=== PATIENT | female | born 1975 | race Two or more races ===

== ENCOUNTER → 2020-02-05 11:50 | Outpatient (BNVA) | payer OTHER, SELFPAY | PROVIDERS: PCP Internal Medicine; Referring Provider Internal Medicine; Visit Provider Internal Medicine Gastroenterology | DX: Z76.89 Persons encountering health services in other specified circumstances (principal) ==

== ENCOUNTER 2020-05-13 12:38 | Inpatient (IN) | payer OTHER, SELFPAY ==
--- NOTE | ~2020-05-13 | CT_ITS ---
EXAMINATION: CT ABDOMEN AND PELVIS WITH CONTRAST CLINICAL INFORMATION: abdominal pain COMPARISON: 08/25/2019 TECHNIQUE: Multidetector volumetric imaging was performed from the superior aspect of the liver through the pubic symphysis following administration of 85 cc of Omnipaque intravenous contrast Sagittal and coronal reformatted images were obtained on the technologist workstation.. This CT examination was performed using dose optimization techniques as appropriate, variously including the following: *Automated exposure control *Adjustment of mA and/or kV according to patient size (this includes techniques or standardized protocols for targeted exams where dose is matched to indication/reason for exam; i.e. extremities or head) *Use of iterative reconstruction technique DLP: 772 mGy-cm FINDINGS: LUNG BASES: Interval dependent atelectasis. LIVER, GALLBLADDER, AND BILIARY TREE: Diffuse fatty infiltration of the liver but no focal hepatic lesion or biliary ductal dilatation. Gallbladder surgically absent. PANCREAS: Pancreas is boggy with diffuse peripancreatic inflammatory changes or fluid. There is homogeneous enhancement to the pancreatic parenchyma. No pancreatic ductal dilatation. Overall the appearance is most consistent with acute interstitial pancreatitis similar to the 08/25/2019 study. SPLEEN: Spleen measures 13.7 cm in length. ADRENAL GLANDS: Unremarkable. KIDNEYS AND URETERS: The kidneys are normal in size, shape, and attenuation. No hydronephrosis, hydroureter, or calculi seen. No perinephric stranding. BLADDER: Unremarkable. GASTROINTESTINAL TRACT: The small and large bowel are unremarkable. The appendix is unremarkable. ABDOMINAL WALL: No significant hernia is appreciated. LYMPHOVASCULAR STRUCTURES: No lymphadenopathy. The aorta is unremarkable. PELVIC VISCERA: Unremarkable. OSSEOUS STRUCTURES: Unremarkable. CT/CT abdomen pelvis w con IMPRESSION: Fullness to the pancreas with peripancreatic inflammatory changes and fluid. Overall the appearance is most consistent with underlying acute interstitial pancreatitis. Clinical correlation recommended. Appearance is similar to the 08/25/2019 study.
--- NOTE | ~2020-05-13 | XR_ITS ---
EXAMINATION: XR CHEST CLINICAL INFORMATION: Shortness of breath COMPARISON: May 16, 2020 and August 25, 2019 TECHNIQUE: AP portable view of the chest was obtained. FINDINGS: There is stable appearance of the chest with small lung volumes and elevation of right hemidiaphragm. Retrocardiac density is again seen with partial silhouetting of the medial aspect of the left hemidiaphragm consistent with left lower lobe disease which may be acute or chronic in nature. Heart normal size. No evidence of pulmonary edema. No pneumothorax or significant pleural effusion. XR/XR chest 1V IMPRESSION: Persistent retrocardiac density which appears to lie within the left lower lobe..
--- NOTE | ~2020-05-13 | XR_ITS ---
EXAMINATION: XR CHEST CLINICAL INFORMATION: Dyspnea COMPARISON: August 25, 2019 TECHNIQUE: AP portable view of the chest was obtained. FINDINGS: There are small lung volumes. There appears be some bibasilar disease likely on the basis of atelectasis however small focus of pneumonitis retrocardiac region not excluded. No pneumothorax or significant pleural effusion appreciated. Heart normal size. No evidence of pulmonary edema. XR/XR chest 1V IMPRESSION: Small lung volumes with bibasilar disease, left greater than right, likely related to atelectasis.
--- NOTE | ~2020-05-13 | CT_ITS ---
EXAMINATION: CT ABDOMEN AND PELVIS WITH CONTRAST CLINICAL INFORMATION: Fever, pancreatitis COMPARISON: 05/13/2020 TECHNIQUE: Multidetector volumetric images were obtained from the superior aspect of the liver through the pubic symphysis following administration 85 mL of Omnipaque 350 intravenous contrast. Sagittal and coronal reformatted images were obtained on the technologist's workstation. Oral contrast: No This CT examination was performed using dose optimization techniques as appropriate, variously including the following: *Automated exposure control *Adjustment of mA and/or kV according to patient size (this includes techniques or standardized protocols for targeted exams where dose is matched to indication/reason for exam; i.e. extremities or head) *Use of iterative reconstruction technique DLP: 904 mGy-cm FINDINGS: LUNG BASES: Small bilateral pleural effusions, new from the prior CT scan. There is bilateral lower lobe consolidation with air bronchograms which could represent atelectasis, aspiration, or pneumonia. Trace pericardial fluid, slightly increased. LIVER, GALLBLADDER, AND BILIARY TREE: The liver is normal in size, shape, and attenuation. No focal hepatic lesion or biliary ductal dilatation is present. Status post cholecystectomy. No biliary ductal dilatation. PANCREAS: There is diffuse peripancreatic fluid and fat stranding, slightly worsened from the prior study. Fluid is again seen extending into the left and right anterior pararenal spaces with additional fluid along both paracolic gutters, into the pelvic cul-de-sac, and within the central mesentery. No pancreatic necrosis seen. No rim-enhancing fluid collection. SPLEEN: Unremarkable. ADRENAL GLANDS: No adrenal mass. KIDNEYS AND URETERS: The kidneys are normal in size, shape, and attenuation. No hydronephrosis, hydroureter, or calculi seen. No perinephric stranding. BLADDER: Unremarkable. GASTROINTESTINAL TRACT: Stomach and small bowel are nondilated. Normal appendix. No evidence of colitis or diverticulitis. There is wall thickening of the duodenum and a few adjacent small bowel loops adjacent the head of the pancreas and peripancreatic inflammatory stranding, likely reactive. ABDOMINAL WALL: Small fat-containing umbilical hernia. There is new mild anasarca. LYMPH NODES: Normal. VASCULAR: Normal caliber aorta. The portal veins and superior mesenteric vein enhance normally. The splenic vein remains patent and opacifies normally. PELVIC VISCERA: The uterus and adnexa are unremarkable. OSSEOUS STRUCTURES: Unremarkable. CT/CT abdomen pelvis w con IMPRESSION: Interval worsening of acute interstitial pancreatitis. No evidence of pancreatic necrosis. No rim-enhancing fluid collection seen. New anasarca and small bilateral pleural effusions. New bilateral lower lobe consolidation, most likely atelectasis but aspiration or pneumonia could have this appearance as well.
[2020-05-13 13:02] VITALS: BP 133/80; PULSE 75; RESP 20; TEMP -13.3; TEMP 8; O2SAT 99; BMI 36.6
[2020-05-13 17:33] VITALS: BP 156/89; PULSE 100; RESP 18; TEMP 36.9; O2SAT 100; BMI 36.6
--- NOTE | 2020-05-13 17:36 | ECG_ITS ---
Test Reason : ABD PAIN Blood Pressure : / mmHG Vent. Rate : 094 BPM Atrial Rate : 094 BPM P-R Int : 138 ms QRS Dur : 084 ms QT Int : 382 ms P-R-T Axes : 028 015 014 degrees QTc Int : 477 ms Normal sinus rhythm Normal ECG When compared with ECG of 15-NOV-2015 23:30, No significant change was found Referred By: Morro Crystal Electronically Signed By:ARAM DONIS MD
--- NOTE | 2020-05-13 17:50 | ED_ITS ---
HPI - Abdominal Pain General Chief Complaint: Abdominal Pain Stated Complaint: ABD PAIN Time Seen by Provider: 05/13/20 18:28 Source: patient Mode of arrival: ambulatory Limitations: no limitations History of Present Illness HPI narrative: Patient presents to ED with abdominal pain and vomiting since yesterday. Patient states history of pancreatitis and feels similar. Patient denies any history of gallstones or alcohol abuse. Patient states having pancreatitis due to high cholesterol. Patient denies any dysuria, hematuria, flank pain, fever, or chills. Patient denies any recent trauma to abdomen MD elicited complaint: abdominal pain Related Data Home Medications Medication Instructions Recorded Confirmed docusate sodium 100 mg capsule 100 mg PO DAILY 02/05/20 02/05/20 polyethylene glycol 3350 17 17 g PO DAILY 02/05/20 02/05/20 gram/dose oral powder Previous Rx's Medication Instructions Recorded atorvastatin 80 mg tablet 80 mg PO DAILY 90 Days #90 tab 03/27/20 sennosides 8.6 mg tablet 8.6 mg PO BEDTIME 90 Days #90 tab 03/27/20 trazodone 100 mg tablet 100 mg PO BEDTIME PRN 90 Days #90 03/27/20 tab Allergies Allergy/AdvReac Type Severity Reaction Status Date / Time fenofibrate Allergy Unknown nausea Verified 05/13/20 17:33 tired pravastatin AdvReac Unknown nausea, Verified 05/13/20 17:33 tired Review of Systems Review of Systems Yes all other systems are reviewed and are negative Constitutional: Reports as per HPI and Reports no additional constitutional complaints Eyes: Reports as per HPI and Reports no additional eye complaints Reports system reviewed and no additional complaints, except as documented and Reports as per HPI Cardiovascular: Reports as per HPI and Reports no additional cardiovascular complaints Respiratory: Reports as per HPI and Reports no additional respiratory complaints Gastrointestinal: Reports as per HPI, Reports no additional gastrointestinal complaints, Reports abdominal pain, Reports nausea and Reports vomiting Genitourinary: Reports no additional female genitourinary complaints and Reports as per HPI Musculoskeletal: Reports no additional musculoskeletal complaints and Reports as per HPI Reports system reviewed and no additional complaints, except as documented and Reports as per HPI Psychiatric: Reports no additional psychiatric complaints and Reports as per HPI Physical Exam Vital Signs: Vital Signs: Last Vital Signs Temp 98.4 F 05/13/20 17:33 Pulse 88 05/13/20 19:38 Resp 18 05/13/20 19:38 BP 170/105 H 05/13/20 19:38 Pulse Ox 99 05/13/20 19:38 Body Mass Index 36.6 Const: General: cooperative, healthy appearing, comfortable, no acute distress, well developed, alert, awake and Physically active Orientation/c onsciousness: patient oriented x3 HENMT: Head: Yes normal to inspection, Yes No palpable skull fracture present, Yes normocephalic, Yes atraumatic, No abrasion, No Mendoza's sign, No contusion, No cranial bruits, No hematoma, No laceration, No occipital foramen tenderness, No palpable skull fracture and No raccoon eyes Eyes: General: appearance normal, both eyes and all related structures Neck: Neck: Yes normal visual inspection, Yes full ROM, Yes no lymphadenopathy, Yes no meningeal signs, Yes trachea midline, Yes supple and No tender Chest: Chest palpation & inspection: normal inspection of the chest and normal palpation of entire chest wall Resp: Effort & Inspection: normal respiratory effort and able to speak in complete sentences Auscultation: clear to auscultation bilaterally Cardio: Jugular venous distension: no JVD Heart sounds: S1 normal heart sound present and S2 normal heart sound present GI: Inspection: Yes normal to inspection and No abdominal wall ecchymosis Palpation (GI): Soft to palpation, not firm, Tenderness to palpation present (GI) (Diffuse), no guarding and not rigid : General: No CVA tenderness and Yes no CVA tenderness Back/Spine/Pelvis: Back: no CVA tenderness, No CVA tenderness and No back tenderness Skin: General skin exam: no rashes or lesions noted and elasticity normal Neuro: General: patient oriented x3, no meningeal signs and CN's II-XI intact bilaterally Cranial nerves: Yes CN's II-XII intact bilaterally Extrem: General: Yes normal to inspection and Yes full ROM Psych: Appearance: grossly normal, well kempt and not disheveled Course Course Course Narrative: Patient will will be treated as pancreatitis. Patient also had EKG and 1 troponin to make sure does not cardiac in etiology. Patient started on morphine Zofran and IV fluids. Reevaluation(s) Reevaluation #1: Patient given antibiotics for UTI. CT scan shows pancreatitis but negative for abscess. Lipase over 1000. Case presented hospitalist for admission for pancreatitis and UTI. Dr. dominique states his triglyceride is over 1000 patient will need insulin drip. Time: 21:19 Reevaluation #2: TRIGLYCERIDE IS OVER 6000. SPOKE WITH HOSPITALIST DR. Enriquez STATES PATIENT TO RECEIVE INSULIN DRIP AND GO TO ICU. AWAITING CALL BACK FOR DR. Britt OF icu Time: 10:16 Reevaluation #3: DISCUSSED CASE WITH DR. BRITT WHO RECOMMENDS FOR PATIENT TO NO LONGER RECEIVE NORMAL SALINE AND INSTEAD RECEIVE D5 LACTATED RINGER AT 75 ML PER HOUR. HE IS ALSO RECOMMENDS PATIENT TO RECEIVE INSULIN DRIP AT 1 UNIT/HOUR. PATIENT TO BE ADMITTED TO ICU Time: 22:25 Additional Reevaluation(s): NOT ABLE TO CHANGE RATE OF INSULIN DRIP ON COMPUTER. NURSE INSTRUCTED VERBALLY TO START INSULIN DRIP AT 1 UNIT/HOUR. THIS WAS ALSO INFORMED Maurice Pool OF icu. NURSE STOPPED GIVEN PATIENT NORMAL SALINE MDM - Abdominal Pain MDM Narrative Medical decision making narrative: UTI. Pancreatitis Lab Data Result diagrams: 05/13/20 18:20 05/13/20 18:20 Labs: Lab Results 05/13/20 05/13/20 05/13/20 Range/Units 18:20 18:20 18:20 WBC 18.2 H (4.8-10.8) X10*3/uL RBC 5.00 (4.20-5.50) X10*6/uL Hgb 13.0 (12.0-16.0) g/dl Hct 32.5 L (37-47) % MCV 73.4 L (80-98) fL MCH 26.0 L (27.0-33.0) pg MCHC 40.0 H (31.0-35.0) g/dl RDW 15.3 (11.0-16.0) % Plt Count 249 (160-400) X10*3/uL MPV 9.4 (9.4-12.3) fL Immature Gran % (Auto) 0.4 (0.0-0.4) % Neut % (Auto) 90.2 H (45-73) % Lymph % (Auto) 6.7 L (20-40) % Stanley % (Auto) 2.4 (2-11) % Eos % (Auto) 0.1 (0-4) % Baso % (Auto) 0.2 (0-2) % Lymph # (Auto) 1.2 (1.2-4.9) X10*3/uL Stanley # (Auto) 0.4 (0.1-1.2) X10*3/uL Eos # (Auto) 0.0 (0.0-0.4) X10*3/uL Baso # (Auto) 0.0 (0.0-0.2) X10*3/uL Abs Immat Gran (auto) 0.08 H (0.00-0.03) X10*3/uL Absolute Neuts (auto) 16.5 H (2.0-8.3) X10*3/uL Absolute Nucleated RBC 0.000 (0.0-0.012) X10*3/uL Nucleated RBC % (auto) 0.0 (0.0-0.2) /100WBC Smear Tech's Comments VERIFIED PT 14.5 H (10.8-13.0) SEC INR 1.2 H (0.9-1.1) APTT 34.1 (24.1-38.0) SEC Sodium 132 L (135-145) mmol/L Potassium 4.1 (3.3-5.1) mmol/L Chloride 98 (96-108) mmol/L Carbon Dioxide 17 L (22-29) mmol/L Anion Gap 21 H (12-20) BUN 14 (9-16) mg/dL Creatinine 0.75 (0.5-1.4) mg/dL Estim Creat Clear Calc 100.2 Estimated GFR > 60 Random Glucose 121 H (60-115) mg/dL Lactic Acid (0.5-2.0) mmol/L Calcium 8.2 L (8.4-10.2) mg/dL Total Bilirubin 0.4 (0.0-1.0) mg/dL Direct Bilirubin < 0.2 (0.0-0.5) mg/dL AST 18 (5-31) U/L ALT 15 (0-31) U/L Alkaline Phosphatase 82 (39-117) U/L Troponin I High Sens (<3.5-17.0) ng/L Total Protein 8.6 H (6.5-8.0) g/dL Albumin 4.1 (3.5-5.0) g/dL Triglycerides 6659 mg/dL Lipase (8-78) U/L Beta HCG, Quant mIU/mL Urine Color Urine Appearance Urine pH (5.0-8.0) Ur Specific [place] (1.005-1.025) Urine Protein (NEG-TRACE) MG/DL Urine Glucose (UA) (NEG) MG/DL Urine Ketones (NEG) MG/DL Urine Blood (NEG) Urine Nitrite (NEG) Ur Leukocyte Esterase (NEG) Urine RBC (0) /HPF Urine WBC (0-4) /HPF Ur Squamous Epith Cells /LPF Urine Bacteria /LPF COVID-19 (ANCELMO) (Negative) COVID-19 Clin Com 05/13/20 05/13/20 05/13/20 Range/Units 18:20 18:20 18:20 WBC (4.8-10.8) X10*3/uL RBC (4.20-5.50) X10*6/uL Hgb (12.0-16.0) g/dl Hct (37-47) % MCV (80-98) fL MCH (27.0-33.0) pg MCHC (31.0-35.0) g/dl RDW (11.0-16.0) % Plt Count (160-400) X10*3/uL MPV (9.4-12.3) fL Immature Gran % (Auto) (0.0-0.4) % Neut % (Auto) (45-73) % Lymph % (Auto) (20-40) % Stanley % (Auto) (2-11) % Eos % (Auto) (0-4) % Baso % (Auto) (0-2) % Lymph # (Auto) (1.2-4.9) X10*3/uL [place] # (Auto) (0.1-1.2) X10*3/uL Eos # (Auto) (0.0-0.4) X10*3/uL Baso # (Auto) (0.0-0.2) X10*3/uL Abs Immat Gran (auto) (0.00-0.03) X10*3/uL Absolute Neuts (auto) (2.0-8.3) X10*3/uL Absolute Nucleated RBC (0.0-0.012) X10*3/uL Nucleated RBC % (auto) (0.0-0.2) /100WBC Smear Tech's Comments PT (10.8-13.0) SEC INR (0.9-1.1) APTT (24.1-38.0) SEC Sodium (135-145) mmol/L Potassium (3.3-5.1) mmol/L Chloride (96-108) mmol/L Carbon Dioxide (22-29) mmol/L Anion Gap (12-20) BUN (9-16) mg/dL Creatinine (0.5-1.4) mg/dL Estim Creat Clear Calc Estimated GFR Random Glucose (60-115) mg/dL Lactic Acid (0.5-2.0) mmol/L Calcium (8.4-10.2) mg/dL Total Bilirubin (0.0-1.0) mg/dL Direct Bilirubin (0.0-0.5) mg/dL AST (5-31) U/L ALT (0-31) U/L Alkaline Phosphatase (39-117) U/L Troponin I High Sens < 3.5 (<3.5-17.0) ng/L Total Protein (6.5-8.0) g/dL Albumin (3.5-5.0) g/dL Triglycerides mg/dL Lipase 1595 H (8-78) U/L Beta HCG, Quant < 2 mIU/mL Urine Color YELLOW Urine Appearance CLOUDY Urine pH 7.5 (5.0-8.0) Ur Specific [place] 1.020 (1.005-1.025) Urine Protein 2+ H (NEG-TRACE) MG/DL Urine Glucose (UA) NEG (NEG) MG/DL Urine Ketones 15 (NEG) MG/DL Urine Blood 2+ H (NEG) Urine Nitrite POS H (NEG) Ur Leukocyte Esterase NEG (NEG) Urine RBC 5-9 H (0) /HPF Urine WBC 0-2 (0-4) /HPF Ur Squamous Epith Cells 1+ /LPF Urine Bacteria 4+ /LPF COVID-19 (ANCELMO) (Negative) COVID-19 Clin Com 05/13/20 05/13/20 Range/Units 20:20 21:50 WBC (4.8-10.8) X10*3/uL RBC (4.20-5.50) X10*6/uL Hgb (12.0-16.0) g/dl Hct (37-47) % MCV (80-98) fL MCH (27.0-33.0) pg MCHC (31.0-35.0) g/dl RDW (11.0-16.0) % Plt Count (160-400) X10*3/uL MPV (9.4-12.3) fL Immature Gran % (Auto) (0.0-0.4) % Neut % (Auto) (45-73) % Lymph % (Auto) (20-40) % Stanley % (Auto) (2-11) % Eos % (Auto) (0-4) % Baso % (Auto) (0-2) % Lymph # (Auto) (1.2-4.9) X10*3/uL [place] # (Auto) (0.1-1.2) X10*3/uL Eos # (Auto) (0.0-0.4) X10*3/uL Baso # (Auto) (0.0-0.2) X10*3/uL Abs Immat Gran (auto) (0.00-0.03) X10*3/uL Absolute Neuts (auto) (2.0-8.3) X10*3/uL Absolute Nucleated RBC (0.0-0.012) X10*3/uL Nucleated RBC % (auto) (0.0-0.2) /100WBC Smear Tech's Comments PT (10.8-13.0) SEC INR (0.9-1.1) APTT (24.1-38.0) SEC Sodium (135-145) mmol/L Potassium (3.3-5.1) mmol/L Chloride (96-108) mmol/L Carbon Dioxide (22-29) mmol/L Anion Gap (12-20) BUN (9-16) mg/dL Creatinine (0.5-1.4) mg/dL Estim Creat Clear Calc Estimated GFR Random Glucose (60-115) mg/dL Lactic Acid 2.8 H* (0.5-2.0) mmol/L Calcium (8.4-10.2) mg/dL Total Bilirubin (0.0-1.0) mg/dL Direct Bilirubin (0.0-0.5) mg/dL AST (5-31) U/L ALT (0-31) U/L Alkaline Phosphatase (39-117) U/L Troponin I High Sens (<3.5-17.0) ng/L Total Protein (6.5-8.0) g/dL Albumin (3.5-5.0) g/dL Triglycerides mg/dL Lipase (8-78) U/L Beta HCG, Quant mIU/mL Urine Color Urine Appearance Urine pH (5.0-8.0) Ur Specific [place] (1.005-1.025) Urine Protein (NEG-TRACE) MG/DL Urine Glucose (UA) (NEG) MG/DL Urine Ketones (NEG) MG/DL Urine Blood (NEG) Urine Nitrite (NEG) Ur Leukocyte Esterase (NEG) Urine RBC (0) /HPF Urine WBC (0-4) /HPF Ur Squamous Epith Cells /LPF Urine Bacteria /LPF COVID-19 (ANCELMO) Negative (Negative) COVID-19 Clin Com See Note ECG Data Interpretation: Normal sinus rhythm. Normal EKG. Ventricular rate 94. Pr interval 138. QTC 477. Negative STEMI Discharge Plan Discharge Clinical Impression: Acute pancreatitis, UTI (urinary tract infection) Patient Disposition: Admitted As Inpatient [facility]LY [facility] Past Medical History Medical History (Updated 05/13/20 @ 21:24 by MAURICE Rodrigez) Anemia (~08/2019) Chronic idiopathic constipation Hx of pancreatitis Hyperlipidemia Hypertriglyceridemia Surgical History S/P cholecystectomy Family History Family History Father Hypertension Dyslipidemia Mother Hypertension Diabetes Acute CVA (cerebrovascular accident) Maternal Grandmother Uterine cancer Renal failure Maternal Grandfather CAD (coronary artery disease) Maternal Uncle Myocardial infarction Social History Social History Household Members: Children Alcohol intake: never Smoking Status: Never smoker Smoked in Last 30 Days: No Use of substances other than those prescribed or required for medical reasons: No Advance Directives: No Advance Directives Information Provided: No Current occupational status: employed 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
[2020-05-13 18:29] LABS: Glucose Urine UA NEG (NEG); Leukocyte Esterase Urine NEG (NEG); Nitrite Urine POS (NEG); PH 7.5 (5.0-8.0); UACC Culture Trigger YES; Urine Blood 2+ (NEG); Urine Ketones 15 MG/DL (NEG); Urine Protein 2+ MG/DL (NEG-TRACE)
[2020-05-13 18:32] LABS: Appearance Urine CLOUDY; Color Urine YELLOW
[2020-05-13 18:33] LABS: INTERNATIONAL NORM RATIO 1.2 (0.9-1.1); Prothrombin Time 14.5 SEC (10.8-13.0)
[2020-05-13 18:36] LABS: Partial Thromboplastin Time 34.1 SEC (24.1-38.0)
[2020-05-13] MEDS: Morphine Sulfate 4 MG/ML CARTRIDGE IVPUSH ×2 (18:37→21:43)
[2020-05-13] MEDS: ondansetron HCL 4 MG/2 ML VIAL IVPUSH (18:37)
[2020-05-13] MEDS: 0.9 % Sodium Chloride 1,000 ML 999 ML IV (18:37)
[2020-05-13 18:50] LABS: Bacteria Urine 4+ /LPF; Squamous Epithelial Cell Urine 1+ /LPF; WBC Urine 0-2 /HPF (0-4)
[2020-05-13 18:55] LABS: Basophils Percent Auto 0.2 % (0-2); Eosinophils Percent Auto 0.1 % (0-4); Imm Gran Abs Auto 0.08 X10*3/uL (0.00-0.03); Imm Gran Pct Auto 0.4 % (0.0-0.4); Lymphocytes Absolute Auto 1.2 X10*3/uL (1.2-4.9); Lymphocytes Percent Auto 6.7 % (20-40); MANUAL DIFF FLAG SCAN; Mean Corpuscular Volume 73.4 fL (80-98); Mean Platelet Volume 9.4 fL (9.4-12.3); Monocytes Absolute Auto 0.4 X10*3/uL (0.1-1.2); Monocytes Percent Auto 2.4 % (2-11); Neutrophils Absolute Auto 16.5 X10*3/uL (2.0-8.3); Neutrophils Percent Auto 90.2 % (45-73); Platelet Count 249 X10*3/uL (160-400); Red Cell Distribution Width 15.3 % (11.0-16.0); SCAN SMEAR FLAG 1; White Blood Count 18.2 X10*3/uL (4.8-10.8)
[2020-05-13 18:57] LABS: Hematocrit 32.5 % (37-47); Troponin-I High Sensitivity < 3.5 ng/L (<3.5-17.0)
[2020-05-13 19:02] LABS: SLIDE REVIEW VERIFIED
[2020-05-13 19:19] LABS: HCG Quantitative < 2 mIU/mL
[2020-05-13 19:37] LABS: Alanine Aminotransferase 15 U/L (0-31); Albumin Level 4.1 g/dL (3.5-5.0); Alkaline Phosphatase 82 U/L (39-117); Anion Gap 21 (12-20); Aspartate Amino Transferase 18 U/L (5-31); Bilirubin Direct < 0.2 mg/dL (0.0-0.5); Bilirubin Total 0.4 mg/dL (0.0-1.0); Blood Urea Nitrogen 14 mg/dL (9-16); Calcium 8.2 mg/dL (8.4-10.2); Carbon Dioxide 17 mmol/L (22-29); Chloride 98 mmol/L (96-108); Creatinine Clr Calc Pharmacy 100.2; Estimated Glomerular Filt Rate > 60; Glucose Random 121 mg/dL (60-115); Potassium 4.1 mmol/L (3.3-5.1); Sodium 132 mmol/L (135-145); Total Protein 8.6 g/dL (6.5-8.0)
[2020-05-13 19:38] VITALS: BP 170/105; PULSE 88; RESP 18; O2SAT 99
[2020-05-13 19:39] LABS: Lipase 1595 U/L (8-78)
[2020-05-13] MEDS: Metoclopramide HCl 10 MG/2 ML VIAL IVPUSH (19:52)
[2020-05-13] MEDS: iohexoL 350 MG/ML 100 ML INFUS..BTL IV (20:05)
[2020-05-13 21:12] LABS: Lactic Acid 2.8 mmol/L (0.5-2.0)
[2020-05-13] MEDS: cefTRIAXone sodium 1 GM in 0.9 % Sodium Chloride 50 ML IV (21:41)
[2020-05-13] MEDS: 0.9 % Sodium Chloride 2,721.54 ML 2721.54 ML IVCONT (21:46)
[2020-05-13 22:02] LABS: Triglycerides 6659 mg/dL
[2020-05-13 22:27] LABS: Reflex Lactate? Lactic Acid Added
[2020-05-13 22:31] LABS: COVID-19 Test Negative (Negative); IDNOW Serial# 9DD0AD1C
[2020-05-13 22:37] VITALS: BMI 36.6
[2020-05-13] MEDS: Insulin Regular/NS 100 UNIT/100 ML PLAST..BAG IVCONT (22:47)
[2020-05-13 22:52] LABS: Glucose, Whole Blood 127 mg/dL (60-115)
[2020-05-13] MEDS: Lactated Ringers 1,000 ML 40 ML IVCONT (22:59)
[2020-05-13 23:00] VITALS: BP 146/90; PULSE 89; RESP 27; O2SAT 97
[2020-05-13] MEDS: Dextrose 10 % 1,000 ML 40 ML IVCONT (23:01)
[2020-05-13] MEDS: Heparin Sodium,Porcine 5,000 UNIT/ML VIAL 5000 UNIT SUBCUT (23:03)
--- NOTE | 2020-05-13 23:18 | PM.CCHP ---
History of Present Illness Date of Service: 05/13/20 Chief Complaint: nausea and abd pn Patient is a 45-year-old female with a past medical history hypertriglyceridemia induced pancreatitis last August. Today, she presented to the ED reporting 2 days of nausea, vomiting and abdominal pain. She denies any history of gallstones or alcohol abuse and says she feels like she did when she had pancreatitis last year. She denies any fevers, chills, dysuria, hematuria, flank pain, shortness of breath, cough or chest pain. During my exam, patient explained her father had hypertriglyceridemia and many episodes of pancreatitis. She states she try to control her triglycerides with weight loss, a low fat diet and exercise but had no luck. Pt was visibly uncomfortable and abdomen was diffusely tender but physical exam was otherwise unremarkable. Labs are notable for WBC 18.2, could be secondary to vomiting, NA 132, bicarb 17, gap 21, lipase 1595, initial lactic acid was 2.8 and the 2hr follow-up was 2.0, UA positive for infection. Patient to be transferred to the ICU for an insulin drip to manage hypertriglyceridemia induced pancreatitis. Review of Systems Review of Systems: Yes all other systems are reviewed and are negative PMFSH Past Medical History Medical History Anemia (~08/2019) Chronic idiopathic constipation Hx of pancreatitis Hyperlipidemia Hypertriglyceridemia Family History Family History Father Hypertension Dyslipidemia Pancreatitis, recurrent Mother Hypertension Diabetes Acute CVA (cerebrovascular accident) Maternal Grandmother Uterine cancer Renal failure Maternal Grandfather CAD (coronary artery disease) Maternal Uncle Myocardial infarction Surgical History Surgical History S/P cholecystectomy Social History Social History Household Members: Family Housing: Apartment Do you presently have visiting nurse or other home services: No Unable to assess alcohol history related to: Unknown Alcohol intake: never Smoking Status: Unknown if ever smoked Smoked in Last 30 Days: No Use of substances other than those prescribed or required for medical reasons: Unknown Advance Directives: No Advance Directives Information Provided: No Do you have thoughts of harming others: None Do you have a plan to hurt others: No Plan Recently lost weight without trying: No Current occupational status: employed 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[employer] Meds Allergies Allergy/AdvReac Type Severity Reaction Status Date / Time fenofibrate Allergy Unknown nausea Verified 05/13/20 17:33 tired pravastatin AdvReac Unknown nausea, Verified 05/13/20 17:33 tired Active Medications: Current Medications Generic Name Dose Route Start Last Admin Trade Name Samantha PRN Reason Stop Dose Admin Heparin Sodium (Porcine) 5,000 unit 05/13/20 22:45 05/13/20 23:03 Heparin Sodium,Porcine 5,000 Unit/Ml Vial SUBCUT 5,000 unit Q8H IVAN Administration Dextrose/Lactated Ringer's 1,000 mls @ 75 mls/hr 05/13/20 22:30 05/13/20 22:52 D5lr IVCONT Not Given .[id number] IVAN Insulin Human Regular 100 unit in 100 mls @ 1 mls/hr 05/13/20 22:30 05/13/20 22:47 Myxredlin IVCONT 1 unit/hr .Q24H IVAN 1 mls/hr Administration Protocol 1 UNIT/HR Lactated Ringer's 1,000 mls @ 40 mls/hr 05/13/20 22:45 05/13/20 22:59 Lr IVCONT 40 mls/hr .Q24H IVAN Administration Dextrose 1,000 mls @ 40 mls/hr 05/13/20 22:45 05/13/20 23:01 D10 IVCONT 40 mls/hr .Q24H IVAN Administration Home Medications Medication Instructions Recorded Confirmed Last Taken Type docusate sodium 100 mg capsule 100 mg PO DAILY 02/05/20 02/05/20 Unknown History polyethylene glycol 3350 17 17 g PO DAILY 02/05/20 02/05/20 Unknown History gram/dose oral powder Physical Exam Vital Signs: Vital Signs: Last Vital Signs Temp 98.4 F 05/13/20 17:33 Pulse 89 05/13/20 23:00 Resp 27 H 05/13/20 23:00 BP 146/90 H 05/13/20 23:00 Pulse Ox 97 05/13/20 23:00 Body Mass Index 36.6 Const: General: cooperative, healthy appearing, no acute distress and tired appearing Nutritional Appearance: obese Orientation/consciousness: patient oriented x3 Limitations: no limitations HENMT: Head: Yes normal to inspection Face and sinus: Yes normal facial exam Eyes: General: appearance normal, both eyes and all related structures Neck: Neck: Yes normal visual inspection, Yes full ROM, Yes trachea midline and Yes supple Resp: Effort & Inspection: normal respiratory effort and able to speak in complete sentences Auscultation: clear to auscultation bilaterally Cardio: Rate: regular rate Rhythm: regular rhythm Heart sounds: normal S1 and S2 GI: Inspection: No abdominal wall ecchymosis and Yes obesity Palpation (GI): Soft to palpation, not firm, Tenderness to palpation present (GI) other (diffuse), no guarding and not rigid Neuro: General: patient oriented x3 Extrem: General: Yes normal to inspection and Yes full ROM Results Labs CBC and Chem 7: 05/13/20 18:20 05/13/20 18:20 Labs: Laboratory Results - last 24 hr 05/13/20 05/13/20 05/13/20 18:20 18:20 18:20 MCV 73.4 L MCH 26.0 L MCHC 40.0 H RDW 15.3 Plt Count 249 MPV 9.4 Immature Gran % (Auto) 0.4 Neut % (Auto) 90.2 H Lymph % (Auto) 6.7 L [place] % (Auto) 2.4 Eos % (Auto) 0.1 Baso % (Auto) 0.2 Lymph # (Auto) 1.2 Holmes # (Auto) 0.4 Eos # (Auto) 0.0 Baso # (Auto) 0.0 Abs Immat Gran (auto) 0.08 H Absolute Neuts (auto) 16.5 H Absolute Nucleated RBC 0.000 Nucleated RBC % (auto) 0.0 Smear Tech's Comments VERIFIED PT 14.5 H INR 1.2 H APTT 34.1 Anion Gap 21 H Estim Creat Clear Calc 100.2 Estimated GFR > 60 POC Glucose Random Glucose 121 H Lactic Acid Calcium 8.2 L Total Bilirubin 0.4 Direct Bilirubin < 0.2 AST 18 ALT 15 Alkaline Phosphatase 82 Troponin I High Sens Total Protein 8.6 H Albumin 4.1 Triglycerides 6659 Lipase Beta HCG, Quant Urine Color Urine Appearance Urine pH Ur Specific [place] Urine Protein Urine Glucose (UA) Urine Ketones Urine Blood Urine Nitrite Ur Leukocyte Esterase Urine RBC Urine WBC Ur Squamous Epith Cells Urine Bacteria COVID-19 (ANCELMO) COVID-19 Clin Com 05/13/20 05/13/20 05/13/20 18:20 18:20 18:20 MCV MCH MCHC RDW Plt Count MPV Immature Gran % (Auto) Neut % (Auto) Lymph % (Auto) [place] % (Auto) Eos % (Auto) Baso % (Auto) Lymph # (Auto) [place] # (Auto) Eos # (Auto) Baso # (Auto) Abs Immat Gran (auto) Absolute Neuts (auto) Absolute Nucleated RBC Nucleated RBC % (auto) Smear Tech's Comments PT INR APTT Anion Gap Estim Creat Clear Calc Estimated GFR POC Glucose Random Glucose Lactic Acid Calcium Total Bilirubin Direct Bilirubin AST ALT Alkaline Phosphatase Troponin I High Sens < 3.5 Total Protein Albumin Triglycerides Lipase 1595 H Beta HCG, Quant < 2 Urine Color YELLOW Urine Appearance CLOUDY Urine pH 7.5 Ur Specific [place] 1.020 Urine Protein 2+ H Urine Glucose (UA) NEG Urine Ketones 15 Urine Blood 2+ H Urine Nitrite POS H Ur Leukocyte Esterase NEG Urine RBC 5-9 H Urine WBC 0-2 Ur Squamous Epith Cells 1+ Urine Bacteria 4+ COVID-19 (ANCELMO) COVID-19 Clin Com 05/13/20 05/13/20 05/13/20 20:20 21:50 22:42 MCV MCH MCHC RDW Plt Count MPV Immature Gran % (Auto) Neut % (Auto) Lymph % (Auto) [place] % (Auto) Eos % (Auto) Baso % (Auto) Lymph # (Auto) [place] # (Auto) Eos # (Auto) Baso # (Auto) Abs Immat Gran (auto) Absolute Neuts (auto) Absolute Nucleated RBC Nucleated RBC % (auto) Smear Tech's Comments PT INR APTT Anion Gap Estim Creat Clear Calc Estimated GFR POC Glucose 127 H Random Glucose Lactic Acid 2.8 H* Calcium Total Bilirubin Direct Bilirubin AST ALT Alkaline Phosphatase Troponin I High Sens Total Protein Albumin Triglycerides Lipase Beta HCG, Quant Urine Color Urine Appearance Urine pH Ur Specific [place] Urine Protein Urine Glucose (UA) Urine Ketones Urine Blood Urine Nitrite Ur Leukocyte Esterase Urine RBC Urine WBC Ur Squamous Epith Cells Urine Bacteria COVID-19 (ANCELMO) Negative COVID-19 Clin Com See Note Imaging Radiologist's Impressions: Impressions Abdomen/Pelvis CT 02/22/21 19:37 IMPRESSION: Fullness to the pancreas with peripancreatic inflammatory changes and fluid. Overall the appearance is most consistent with underlying acute interstitial pancreatitis. Clinical correlation recommended. Appearance is similar to the 08/25/2019 study. Assessment and Plan (1) Acute pancreatitis: Status: Acute 1U/hr insulin gtt, monitor triglycerides q12h, monitor POC Q1H and adjust D10&LR drip accordingly (2) UTI (urinary tract infection): Status: Acute 1 g ceftriaxone given in ED (3) Hypertriglyceridemia: Status: Acute monitor triglycerides q12h
[2020-05-14] VITALS (20 sets, daily range): BP systolic 92–121; BP diastolic 58–78; PULSE 88–128; RESP 14–33; TEMP 36.6–37.1; O2SAT 90–96; BMI 36.8
[2020-05-14 00:04] LABS: Glucose, Whole Blood 146 mg/dL (60-115)
[2020-05-14 01:07] LABS: Glucose, Whole Blood 151 mg/dL (60-115)
[2020-05-14] MEDS: HYDROmorphone HCl 0.5 MG/0.5 ML SYRINGE IVPUSH ×2 (01:24→03:16)
[2020-05-14 02:08] LABS: Glucose, Whole Blood 152 mg/dL (60-115)
[2020-05-14 03:02] LABS: Glucose, Whole Blood 156 mg/dL (60-115)
[2020-05-14 04:18] LABS: Glucose, Whole Blood 149 mg/dL (60-115)
[2020-05-14] MEDS: Heparin Sodium,Porcine 5,000 UNIT/ML VIAL 5000 UNIT SUBCUT ×3 (05:03→20:55)
[2020-05-14 05:10] LABS: Glucose, Whole Blood 168 mg/dL (60-115)
[2020-05-14] MEDS: HYDROmorphone HCl 1 MG/ML SYRINGE IVPUSH (05:41)
[2020-05-14 06:05] LABS: Baso%MD 0.2 %; Hematocrit 39.3 % (37-47); Hemoglobin 13.8 g/dl (12.0-16.0); IG%MD 0.4 %; Mean Corpuscular HGB Conc 35.1 g/dl (31.0-35.0); Mean Corpuscular Hemoglobin 25.8 pg (27.0-33.0); Mean Corpuscular Volume 73.6 fL (80-98); Mean Platelet Volume 10.3 fL (9.4-12.3); Neut%MD 88.4 %; Platelet Count 370 X10*3/uL (160-400); Red Blood Count 5.34 X10*6/uL (4.20-5.50); Red Cell Distribution Width 15.6 % (11.0-16.0); White Blood Count 18.7 X10*3/uL (4.8-10.8)
[2020-05-14 06:39] LABS: Triglycerides 4775 mg/dL
[2020-05-14 07:04] LABS: Alanine Aminotransferase 12 U/L (0-31); Albumin Level 3.6 g/dL (3.5-5.0); Alkaline Phosphatase 67 U/L (39-117); Anion Gap 17 (12-20); Aspartate Amino Transferase 16 U/L (5-31); Bilirubin Total 0.4 mg/dL (0.0-1.0); Blood Urea Nitrogen 12 mg/dL (9-16); Calcium 6.4 mg/dL (8.4-10.2); Carbon Dioxide 16 mmol/L (22-29); Chloride 106 mmol/L (96-108); Creatinine Clr Calc Pharmacy 103.1; Estimated Glomerular Filt Rate > 60; Glucose Random 147 mg/dL (60-115); Potassium 3.8 mmol/L (3.3-5.1); Sodium 135 mmol/L (135-145)
[2020-05-14 07:05] LABS: Glucose, Whole Blood 145 mg/dL (60-115)
[2020-05-14] MEDS: Dextrose 5 % and Lactated Ring 1,000 ML 80 ML IVCONT ×2 (07:24→19:44)
[2020-05-14 07:32] LABS: Band Neutrophils Percent 14 % (3-5); Lymphocytes Absolute Manual 0.9 X10*3/uL (0.6-4.8); Lymphocytes Percent Manual 5 % (20-40); Monocytes Absolute Manual 1.1 X10*3/uL (0.0-1.2); Monocytes Percent Manual 6 % (2-11); Neutrophils Absolute Manual 16.6 X10*3/uL (2.2-7.9); Neutrophils Percent Manual 75 % (45-73)
[2020-05-14 07:34] LABS: Platelet Estimate NORMAL (NORMAL); Platelet Morphology Comment NORMAL; RBC Morphology NORMAL
[2020-05-14] MEDS: Calcium Gluconate/NaCl,Iso-Osm 2 GM/100 ML PLAST..BAG IV (07:49)
[2020-05-14 08:15] LABS: Magnesium 1.9 mg/dL (1.6-2.6); Phosphorus 2.3 mg/dL (2.7-4.5)
[2020-05-14 08:59] LABS: Glucose, Whole Blood 161 mg/dL (60-115)
[2020-05-14] MEDS: Insulin Glargine,Hum.rec.anlog 100 UNIT/ML 10 ML VIAL 30 UNIT SUBCUT ×2 (09:32→20:54)
[2020-05-14] MEDS: Fenofibrate,Micronized 134 MG CAPSULE PO (11:40)
[2020-05-14] MEDS: Atorvastatin Calcium 80 MG TABLET PO (11:40)
[2020-05-14 11:51] LABS: Glucose, Whole Blood 161 mg/dL (60-115)
--- NOTE | 2020-05-14 12:23 | MHC.CM.PN ---
Met with pt to review d/c plans and to verify demographic information [facility] resides with [facility] and is independent with all care needs. She does not have adaptive equipment or use services. Pt states her family assists with transportation needs and she sees Dr. Ashley as her PCP At this time, it is anticipated that pt will return to home without the need for services. Will refer to [facility] financial counseling for assistance with insurance: pt has [employer] only.
[2020-05-14] MEDS: oxyCODONE HCl Immed Release 5 MG TABLET 10 MG PO ×3 (12:42→21:01)
--- NOTE | 2020-05-14 13:55 | PC.NURSE ---
LANTUS 30 UNITS ADMINISTERED AT 0930, INSULIN GTT TURNED OFF AT 1030. CONTINUE TO MONITOR POC INSTRUCTED BY . C/O ABDOMINAL PAIN -12/29. TREATED WITH PRN DILUADID 4MG PO X 1 W/ NO EFFECT, NOTIFIED. PT REQUESTED OXYCODONE, STATED IT HAS WORKED FOR HER BEFORE. MD ORDERED OXYCODONE 10MG PRN, GIVEN AND PT IS CURRENTLY SLEEPING COMFORTABLY. WILL CONTINUE TO MONITOR. A&4 X 4, VSS. OOB TO COMMODE TO VOID.
--- NOTE | 2020-05-14 17:47 | PM.CCPN ---
Subjective Subjective Date of Service: 05/14/20 Interval History: Ms. Antonio was admitted to ICU just after midnight this morning with pancreatitis 2? marked hypertriglyceridemia. 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 Her father had hypertriglyceridemia and many episodes of pancreatitis. She tries to control her triglycerides with weight loss, a low fat diet and exercise but has had little success. In at least one of her admissions, the chart notes indicate that she?s had medication noncompliance. Reviewing the [facility] records, triglyceride level August 24, 2019 was 5527, with prior peak levels of 4464 on 02/10/2019, 6060 on 11/03/2014, 7132 on 08/23/2014, and the earliest record was 3183 on 09/12/2008. She has previously been treated w atorvastatin 80 mg and fenofibrate 160 mg daily. Last hospitalization was here this past August at which time she was admitted to the ICU for management of her triglycerides with an insulin drip. HISTORY OF PRESENT ILLNESS: She presented to the ED last night reporting 2 days of nausea, vomiting and abdominal pain. She is s/p cholecystectomy years ago and denied any history of alcohol abuse. She denied fevers, chills, dysuria, hematuria, flank pain, shortness of breath, cough or chest pain. In the ED she was afebrile, with a mildly diffusely tender abdomen. Labs were notable for WBC 18.2, Na 132, BUN/creat 14/0.7, bicarb 17, gluc 120, normal LFTs, alb 4.1, lipase 1595, and trig 6659. On abdom CT, the pancreas was read as ?boggy with diffuse peripancreatic inflammatory changes or fluid. There is homogeneous enhancement to the pancreatic parenchyma. No pancreatic ductal dilatation. Overall the appearance is most consistent with acute interstitial pancreatitis similar to the 08/25/2019 study.? The patient was admitted to ICU for management of her hypertriglyceridemia with an insulin drip. She was started on insulin 3u/hr, along with D5LR at 80cc/hr to keep her glucose level up. Triglycerides were down to the 4000 range this morning. At about 10am, we gave her Lantus insulin 30 units and stopped the insulin drip. We added atorvastatin and fenofibrate. Her POCs have been running in the 140-160 range. I also wrote her for oxycodone 10mg po q4hr prn. This afternoon, she says she feels much better. Her abdomen is maybe a little less distended and less tender. She doesn?t wince as much on palpation. No guarding or rebound. She?s able to take po?s. No edema. Chest is clear. Breathing easy but shallow, with Sat 94% on 1L NC. LABORATORY DATA: As below. IMPRESSION: 1. Familial hypertriglyceridemia. We?ve started her on atorvastin and fibrate. Check daily trig level. Suggest Lantus insulin q12 hr until trig level is below, say, 1000. While she?s on the insulin, suggest continuing the D5LR. 2. Acute pancreatitis. Clinically improved. Recheck lipase in AM. Opiates for pain prn. Stable for discharge to regular floor. I?ve signed out to Dr. Abraham. Time: . Physical Exam Vital Signs: Vital Signs: Last Vital Signs Temp 97.8 F 05/14/20 16:00 Pulse 110 H 05/14/20 17:00 Resp 28 H 05/14/20 17:00 BP 105/71 05/14/20 17:00 Pulse Ox 93 05/14/20 17:00 Body Mass Index 36.8 Objective Data Labs CBC & Chem 7: 05/14/20 05:13 05/14/20 05:13 Labs: Laboratory Results - last 24 hr 05/13/20 05/13/20 05/13/20 18:20 18:20 18:20 WBC 18.2 H RBC 5.00 Hgb 13.0 Hct 32.5 L MCV 73.4 L MCH 26.0 L MCHC 40.0 H RDW 15.3 Plt Count 249 MPV 9.4 Immature Gran % (Auto) 0.4 Neut % (Auto) 90.2 H Lymph % (Auto) 6.7 L [place] % (Auto) 2.4 Eos % (Auto) 0.1 Baso % (Auto) 0.2 Lymph # (Auto) 1.2 [place] # (Auto) 0.4 Eos # (Auto) 0.0 Baso # (Auto) 0.0 Abs Immat Gran (auto) 0.08 H Absolute Neuts (auto) 16.5 H Absolute Nucleated RBC 0.000 Nucleated RBC % (auto) 0.0 Neutrophils % (Manual) Band Neutrophils % Lymphocytes % (Manual) Monocytes % (Manual) Abs Neuts (Manual) Lymphocytes # (Manual) Monocytes # (Manual) Platelet Estimate Plt Morphology Comment RBC Morphology Smear Tech's Comments VERIFIED PT 14.5 H INR 1.2 H APTT 34.1 Sodium 132 L Potassium 4.1 Chloride 98 Carbon Dioxide 17 L Anion Gap 21 H BUN 14 Creatinine 0.75 Estim Creat Clear Calc 100.2 Estimated GFR > 60 POC Glucose Random Glucose 121 H Lactic Acid Lactic Acid Fup @ 2Hr Calcium 8.2 L Phosphorus Magnesium Total Bilirubin 0.4 Direct Bilirubin < 0.2 AST 18 ALT 15 Alkaline Phosphatase 82 Troponin I High Sens Total Protein 8.6 H Albumin 4.1 Triglycerides 6659 Lipase Beta HCG, Quant Urine Color Urine Appearance Urine pH Ur Specific [place] Urine Protein Urine Glucose (UA) Urine Ketones Urine Blood Urine Nitrite Ur Leukocyte Esterase Urine RBC Urine WBC Ur Squamous Epith Cells Urine Bacteria COVID-19 (ANCELMO) COVID-19 Clin Com 05/13/20 05/13/20 05/13/20 18:20 18:20 18:20 WBC RBC Hgb Hct MCV MCH MCHC RDW Plt Count MPV Immature Gran % (Auto) Neut % (Auto) Lymph % (Auto) [place] % (Auto) Eos % (Auto) Baso % (Auto) Lymph # (Auto) [place] # (Auto) Eos # (Auto) Baso # (Auto) Abs Immat Gran (auto) Absolute Neuts (auto) Absolute Nucleated RBC Nucleated RBC % (auto) Neutrophils % (Manual) Band Neutrophils % Lymphocytes % (Manual) Monocytes % (Manual) Abs Neuts (Manual) Lymphocytes # (Manual) Monocytes # (Manual) Platelet Estimate Plt Morphology Comment RBC Morphology Smear Tech's Comments PT INR APTT Sodium Potassium Chloride Carbon Dioxide Anion Gap BUN Creatinine Estim Creat Clear Calc Estimated GFR POC Glucose Random Glucose Lactic Acid Lactic Acid Fup @ 2Hr Calcium Phosphorus Magnesium Total Bilirubin Direct Bilirubin AST ALT Alkaline Phosphatase Troponin I High Sens < 3.5 Total Protein Albumin Triglycerides Lipase 1595 H Beta HCG, Quant < 2 Urine Color YELLOW Urine Appearance CLOUDY Urine pH 7.5 Ur Specific [place] 1.020 Urine Protein 2+ H Urine Glucose (UA) NEG Urine Ketones 15 Urine Blood 2+ H Urine Nitrite POS H Ur Leukocyte Esterase NEG Urine RBC 5-9 H Urine WBC 0-2 Ur Squamous Epith Cells 1+ Urine Bacteria 4+ COVID-19 (ANCELMO) COVID-19 Clin Com 05/13/20 05/13/20 05/13/20 20:20 21:50 22:42 WBC RBC Hgb Hct MCV MCH MCHC RDW Plt Count MPV Immature Gran % (Auto) Neut % (Auto) Lymph % (Auto) [place] % (Auto) Eos % (Auto) Baso % (Auto) Lymph # (Auto) [place] # (Auto) Eos # (Auto) Baso # (Auto) Abs Immat Gran (auto) Absolute Neuts (auto) Absolute Nucleated RBC Nucleated RBC % (auto) Neutrophils % (Manual) Band Neutrophils % Lymphocytes % (Manual) Monocytes % (Manual) Abs Neuts (Manual) Lymphocytes # (Manual) Monocytes # (Manual) Platelet Estimate Plt Morphology Comment RBC Morphology Smear Tech's Comments PT INR APTT Sodium Potassium Chloride Carbon Dioxide Anion Gap BUN Creatinine Estim Creat Clear Calc Estimated GFR POC Glucose 127 H Random Glucose Lactic Acid 2.8 H* Lactic Acid Fup @ 2Hr Calcium Phosphorus Magnesium Total Bilirubin Direct Bilirubin AST ALT Alkaline Phosphatase Troponin I High Sens Total Protein Albumin Triglycerides Lipase Beta HCG, Quant Urine Color Urine Appearance Urine pH Ur Specific [place] Urine Protein Urine Glucose (UA) Urine Ketones Urine Blood Urine Nitrite Ur Leukocyte Esterase Urine RBC Urine WBC Ur Squamous Epith Cells Urine Bacteria COVID-19 (ANCELMO) Negative COVID-19 Clin Com See Note 05/13/20 05/14/20 05/14/20 23:59 00:38 01:03 WBC RBC Hgb Hct MCV MCH MCHC RDW Plt Count MPV Immature Gran % (Auto) Neut % (Auto) Lymph % (Auto) [place] % (Auto) Eos % (Auto) Baso % (Auto) Lymph # (Auto) [place] # (Auto) Eos # (Auto) Baso # (Auto) Abs Immat Gran (auto) Absolute Neuts (auto) Absolute Nucleated RBC Nucleated RBC % (auto) Neutrophils % (Manual) Band Neutrophils % Lymphocytes % (Manual) Monocytes % (Manual) Abs Neuts (Manual) Lymphocytes # (Manual) Monocytes # (Manual) Platelet Estimate Plt Morphology Comment RBC Morphology Smear Tech's Comments PT INR APTT Sodium Potassium Chloride Carbon Dioxide Anion Gap BUN Creatinine Estim Creat Clear Calc Estimated GFR POC Glucose 146 H 151 H Random Glucose Lactic Acid Lactic Acid Fup @ 2Hr 2.0 Calcium Phosphorus Magnesium Total Bilirubin Direct Bilirubin AST ALT Alkaline Phosphatase Troponin I High Sens Total Protein Albumin Triglycerides Lipase Beta HCG, Quant Urine Color Urine Appearance Urine pH Ur Specific [place] Urine Protein Urine Glucose (UA) Urine Ketones Urine Blood Urine Nitrite Ur Leukocyte Esterase Urine RBC Urine WBC Ur Squamous Epith Cells Urine Bacteria COVID-19 (ANCELMO) COVID-19 Clin Com 05/14/20 05/14/20 05/14/20 02:04 02:58 04:15 WBC RBC Hgb Hct MCV MCH MCHC RDW Plt Count MPV Immature Gran % (Auto) Neut % (Auto) Lymph % (Auto) [place] % (Auto) Eos % (Auto) Baso % (Auto) Lymph # (Auto) [place] # (Auto) Eos # (Auto) Baso # (Auto) Abs Immat Gran (auto) Absolute Neuts (auto) Absolute Nucleated RBC Nucleated RBC % (auto) Neutrophils % (Manual) Band Neutrophils % Lymphocytes % (Manual) Monocytes % (Manual) Abs Neuts (Manual) Lymphocytes # (Manual) Monocytes # (Manual) Platelet Estimate Plt Morphology Comment RBC Morphology Smear Tech's Comments PT INR APTT Sodium Potassium Chloride Carbon Dioxide Anion Gap BUN Creatinine Estim Creat Clear Calc Estimated GFR POC Glucose 152 H 156 H 149 H Random Glucose Lactic Acid Lactic Acid Fup @ 2Hr Calcium Phosphorus Magnesium Total Bilirubin Direct Bilirubin AST ALT Alkaline Phosphatase Troponin I High Sens Total Protein Albumin Triglycerides Lipase Beta HCG, Quant Urine Color Urine Appearance Urine pH Ur Specific [place] Urine Protein Urine Glucose (UA) Urine Ketones Urine Blood Urine Nitrite Ur Leukocyte Esterase Urine RBC Urine WBC Ur Squamous Epith Cells Urine Bacteria COVID-19 (ANCELMO) COVID-19 Clin Com 05/14/20 05/14/20 05/14/20 05:06 05:13 05:13 WBC 18.7 H RBC 5.34 Hgb 13.8 Hct 39.3 D MCV 73.6 L MCH 25.8 L MCHC 35.1 H RDW 15.6 Plt Count 370 D MPV 10.3 Immature Gran % (Auto) Neut % (Auto) Lymph % (Auto) [place] % (Auto) Eos % (Auto) Baso % (Auto) Lymph # (Auto) [place] # (Auto) Eos # (Auto) Baso # (Auto) Abs Immat Gran (auto) Absolute Neuts (auto) Absolute Nucleated RBC 0.000 Nucleated RBC % (auto) 0.0 Neutrophils % (Manual) 75 H Band Neutrophils % 14 H Lymphocytes % (Manual) 5 L Monocytes % (Manual) 6 Abs Neuts (Manual) 16.6 H Lymphocytes # (Manual) 0.9 Monocytes # (Manual) 1.1 Platelet Estimate NORMAL Plt Morphology Comment NORMAL RBC Morphology NORMAL Smear Tech's Comments PT INR APTT Sodium 135 Potassium 3.8 Chloride 106 Carbon Dioxide 16 L Anion Gap 17 BUN 12 Creatinine 0.73 Estim Creat Clear Calc 103.1 Estimated GFR > 60 POC Glucose 168 H Random Glucose 147 H Lactic Acid Lactic Acid Fup @ 2Hr Calcium 6.4 L D Phosphorus 2.3 L Magnesium 1.9 Total Bilirubin 0.4 Direct Bilirubin AST 16 ALT 12 Alkaline Phosphatase 67 Troponin I High Sens Total Protein 7.0 Albumin 3.6 Triglycerides 4775 Lipase Beta HCG, Quant Urine Color Urine Appearance Urine pH Ur Specific [place] Urine Protein Urine Glucose (UA) Urine Ketones Urine Blood Urine Nitrite Ur Leukocyte Esterase Urine RBC Urine WBC Ur Squamous Epith Cells Urine Bacteria COVID-19 (ANCELMO) COVID-19 [employer] 05/14/20 05/14/20 05/14/20 07:00 08:57 11:48 WBC RBC Hgb Hct MCV MCH MCHC RDW Plt Count MPV Immature Gran % (Auto) Neut % (Auto) Lymph % (Auto) [place] % (Auto) Eos % (Auto) Baso % (Auto) Lymph # (Auto) [place] # (Auto) Eos # (Auto) Baso # (Auto) Abs Immat Gran (auto) Absolute Neuts (auto) Absolute Nucleated RBC Nucleated RBC % (auto) Neutrophils % (Manual) Band Neutrophils % Lymphocytes % (Manual) Monocytes % (Manual) Abs Neuts (Manual) Lymphocytes # (Manual) Monocytes # (Manual) Platelet Estimate Plt Morphology Comment RBC Morphology Smear Tech's Comments PT INR APTT Sodium Potassium Chloride Carbon Dioxide Anion Gap BUN Creatinine Estim Creat Clear Calc Estimated GFR POC Glucose 145 H 161 H 161 H Random Glucose Lactic Acid Lactic Acid Fup @ 2Hr Calcium Phosphorus Magnesium Total Bilirubin Direct Bilirubin AST ALT Alkaline Phosphatase Troponin I High Sens Total Protein Albumin Triglycerides Lipase Beta HCG, Quant Urine Color Urine Appearance Urine pH Ur Specific [place] Urine Protein Urine Glucose (UA) Urine Ketones Urine Blood Urine Nitrite Ur Leukocyte Esterase Urine RBC Urine WBC Ur Squamous Epith Cells Urine Bacteria COVID-19 (ANCELMO) COVID-19 [email or web address] Com Microbiology Microbiology Results: Microbiology 05/13/20 17:40 Urine clean catch - Clean Catch Midstream Urine Culture - Preliminary Gram negative panchito Progress Note: A&P Time Spent With Patient Time: Total time spent is greater than 50% in coordination of care (as documented) at patient's floor/unit and/or counseling patient: Total time spent with greater than 50% in coordination of care (as documented) at patient's floor/unit and/or counseling patient:: 0
[2020-05-14 18:12] LABS: Glucose, Whole Blood 185 mg/dL (60-115)
[2020-05-14] MEDS: Sennosides 8.6 MG TABLET PO (20:55)
[2020-05-14 21:02] LABS: Glucose, Whole Blood 169 mg/dL (60-115)
[2020-05-15] VITALS (7 sets, daily range): BP systolic 102–155; BP diastolic 68–83; PULSE 106–125; RESP 16–18; TEMP 36.4–37.3; O2SAT 93–97; BMI 37.0
[2020-05-15] MEDS: oxyCODONE HCl Immed Release 5 MG TABLET 10 MG PO ×2 (01:47→06:27)
[2020-05-15 06:13] LABS: MANUAL DIFF FLAG NO
[2020-05-15] MEDS: Heparin Sodium,Porcine 5,000 UNIT/ML VIAL 5000 UNIT SUBCUT ×3 (06:13→23:51)
[2020-05-15 06:29] LABS: Basophils Percent Auto 0.1 % (0-2); Eosinophils Percent Auto 0.1 % (0-4); Hematocrit 44.5 % (37-47); Hemoglobin 14.8 g/dl (12.0-16.0); Imm Gran Abs Auto 0.07 X10*3/uL (0.00-0.03); Imm Gran Pct Auto 0.5 % (0.0-0.4); Lymphocytes Absolute Auto 1.5 X10*3/uL (1.2-4.9); Lymphocytes Percent Auto 10.3 % (20-40); Mean Corpuscular HGB Conc 33.3 g/dl (31.0-35.0); Mean Corpuscular Hemoglobin 24.5 pg (27.0-33.0); Mean Corpuscular Volume 73.8 fL (80-98); Mean Platelet Volume 10.3 fL (9.4-12.3); Monocytes Absolute Auto 0.6 X10*3/uL (0.1-1.2); Monocytes Percent Auto 3.9 % (2-11); Neutrophils Absolute Auto 12.6 X10*3/uL (2.0-8.3); Neutrophils Percent Auto 85.1 % (45-73); Platelet Count 310 X10*3/uL (160-400); Red Blood Count 6.03 X10*6/uL (4.20-5.50); Red Cell Distribution Width 17.2 % (11.0-16.0); White Blood Count 14.8 X10*3/uL (4.8-10.8)
[2020-05-15 08:31] LABS: Anion Gap 20 (12-20); Blood Urea Nitrogen 23 mg/dL (9-16); Calcium 6.3 mg/dL (8.4-10.2); Carbon Dioxide 14 mmol/L (22-29); Chloride 102 mmol/L (96-108); Creatinine Clr Calc Pharmacy 49.5; Estimated Glomerular Filt Rate 37; Glucose Random 143 mg/dL (60-115); Lipase 1355 U/L (8-78); Phosphorus 3.9 mg/dL (2.7-4.5); Potassium 4.2 mmol/L (3.3-5.1); Sodium 132 mmol/L (135-145); Triglycerides 2171 mg/dL
[2020-05-15] MEDS: Dextrose 5 % and Lactated Ring 1,000 ML 80 ML IVCONT (08:57)
[2020-05-15] MEDS: polyethylene glycoL 3350 17 GM POWD.PACK PO (08:59)
[2020-05-15] MEDS: Atorvastatin Calcium 80 MG TABLET PO (08:59)
[2020-05-15] MEDS: Docusate Sodium 100 MG CAPSULE PO (08:59)
[2020-05-15] MEDS: Fenofibrate,Micronized 134 MG CAPSULE PO (08:59)
[2020-05-15] MEDS: ondansetron HCL 4 MG/2 ML VIAL IVPUSH (09:12)
[2020-05-15 10:08] LABS: Glucose, Whole Blood 184 mg/dL (60-115)
[2020-05-15] MEDS: Insulin Glargine,Hum.rec.anlog 100 UNIT/ML 10 ML VIAL 12 UNIT SUBCUT (10:21)
[2020-05-15] MEDS: HYDROmorphone HCl 1 MG/ML SYRINGE IVPUSH ×3 (11:53→20:40)
[2020-05-15] MEDS: Insulin Glargine,Hum.rec.anlog 100 UNIT/ML 10 ML VIAL 15 UNIT SUBCUT (11:53)
[2020-05-15 12:08] LABS: Glucose, Whole Blood 180 mg/dL (60-115)
[2020-05-15 14:10] LABS: Glucose, Whole Blood 181 mg/dL (60-115)
[2020-05-15] MEDS: Dextrose 5 % and Lactated Ring 1,000 ML 200 ML IVCONT (14:19)
--- NOTE | 2020-05-15 15:00 | MHC.CLN ---
F/U PT CURRENTLY RECEIVING REGULAR DIET RECOMMEND CARDIAC LOW FAT DIET R/T EXTREMELY HIGH TRIGS 1500 CALORIES PER DAY TO PROMOTE SLOW WT LOSS SEE ALSO TEACHING RECORD RECOMMEND REFERRAL TO OUT PT RD FOR DIET EDUCATION UPON D/C
--- NOTE | 2020-05-15 15:47 | PM.EVENT ---
Event Note Date of Service: 05/15/20 Event Note: consult dictated acute pancreatitis secondary to elevated triglycerides. continue supportive care hemoconcentration and worsening renal function are concerning. consider renal consult and hoskins catheter for help with fluid management.
--- NOTE | 2020-05-15 15:59 | P.PNIM_ITS ---
Subjective Subjective Date of Service: 05/15/20 Interval History: Patient complaining of abdominal pain, and nausea, able to tolerate clear liquid blood sugars above 150 General no headache, no dizziness no fever chills. CVS no chest pain, no palpitation. Respiratory no cough no shortness of breath. Gastrointestinal nausea and epigastric abdominal with radiation to back Physical Exam Vital Signs: Vital Signs: Last Vital Signs Temp 99.1 F 05/15/20 15:44 Pulse 118 H 05/15/20 15:44 Resp 18 05/15/20 15:44 BP 144/81 H 05/15/20 15:44 Pulse Ox 94 05/15/20 15:44 Body Mass Index 37.0 General in distress due to pain. Neck is supple no JVD. CVS regular rate rhythm, Respiratory lungs clear to auscultation, no respiratory distress, no wheeze, no rhonchi. Gastrointestinal abdomen obese tender in epigastric area, bowel sounds audible, no guarding , no rigidity. Extremities no clubbing cyanosis or edema. Neuro nonfocal . Skin no rash Objective Data Current Medications Generic Name Dose Route Start Last Admin Trade Name Freq PRN Reason Stop Dose Admin Atorvastatin Calcium 80 mg 05/14/20 11:00 05/15/20 08:59 Atorvastatin Calcium 80 Mg Tablet PO 80 mg DAILY IVAN Administration Docusate Sodium 100 mg 05/15/20 09:00 05/15/20 08:59 Docusate Sodium 100 Mg Capsule PO 100 mg DAILY IVAN Administration Fenofibrate 134 mg 05/14/20 11:00 05/15/20 08:59 Fenofibrate,Micronized 134 Mg Capsule PO 134 mg DAILY IVAN Administration Heparin Sodium (Porcine) 5,000 unit 05/13/20 22:45 05/15/20 14:20 Heparin Sodium,Porcine 5,000 Unit/Ml Vial SUBCUT 5,000 unit Q8H IVAN Administration Hydromorphone HCl 1 mg 05/15/20 10:04 05/15/20 11:53 Hydromorphone Hcl 1 Mg/Ml Syringe IVPUSH 1 mg Q4H PRN Administration abdominal pain Dextrose/Lactated Ringer's 1,000 mls @ 200 mls/hr 05/14/20 07:30 05/15/20 14:19 D5lr IVCONT 200 mls/hr .Q5H IVAN Administration Insulin Glargine 30 unit 05/15/20 21:00 Insulin Glargine,Hum.Rec.Anlog 100 Unit/Ml 10 Ml Vial SUBCUT BID [facility] Insulin Human Lispro 0 unit 05/15/20 11:30 05/15/20 11:54 Insulin Lispro 100 Unit/Ml 3 Ml Vial SUBCUT Not Given QIDACHS [facility] Protocol Ondansetron HCl 4 mg 05/15/20 08:58 05/15/20 09:12 Ondansetron Hcl 4 Mg/2 Ml Vial IVPUSH 4 mg Q6H PRN Administration Nausea Polyethylene Glycol 17 gm 05/15/20 09:00 05/15/20 08:59 Polyethylene Glycol 3350 17 Gm Powd.Pack PO 17 gm DAILY [facility] Administration Senna 8.6 mg 05/14/20 21:00 05/14/20 20:55 Sennosides 8.6 Mg Tablet PO 8.6 mg BEDTIME IVAN Administration Trazodone HCl 100 mg 05/14/20 18:43 Trazodone Hcl 100 Mg Tablet PO BEDTIME PRN insomnia Labs CBC & Chem 7: 05/15/20 05:51 05/15/20 05:51 Microbiology Microbiology Results: Microbiology 05/13/20 17:40 Urine clean catch - Clean Catch Midstream Urine Culture - Final Escherichia coli 05/13/20 20:20 Blood - Venous Blood Culture - Preliminary No growth after 24 hours. 05/13/20 20:20 Blood - Venous Blood Culture - Preliminary No growth after 24 hours. Assessment and Plan (1) Acute pancreatitis: Status: Acute (2) Hypertriglyceridemia: Status: Acute (3) Hx of pancreatitis: Status: Acute (4) UTI (urinary tract infection): Status: Acute Assessment and Plan: 45-year-old female patient presented to [place] ER with 2 days of nausea vomiting and abdominal pain workup revealed elevated WBC 18.2 bicarb 17 normal LFTs albumin 4.1,lipase 1595, and trig 6659. abdom CT ?boggy with diffuse peripancreatic inflammatory changes or fluid, homogeneous enhancement to the pancreatic parenchyma. No pancreatic ductal dilatation. Overall the appearance is most consistent with acute interstitial pancreatitis similar to the 08/25/2019 study.?patient was admitted to ICU for management of her hypertriglyceridemia with an insulin drip. She was started on insulin 3u/hr, along with D5LR at 80cc/hr to keep her glucose level up, subsequently Triglycerides were down to the 4000 range this morning, insulin drip was discontinued and patient placed on Lantus insulin 30 units patient started on atorvastatin and fenofibrate. Her POCs were running in the 140-160 range therefore patient was transferred to intermediate care Acute pancreatitis due to familial hypertriglyceridemia Patient with persistent abdominal pain and nausea, lipase slowly trending down from 1595 to 1355, triglyceride down from 6659 to 2171 but patient noted to have worsening renal function, and acidosis Will increase IV fluids D5W/Ringer lactate to 200 cc/hour, will place patient on Lantus insulin 30 units b.i.d. follow blood sugars Q 2 hrs with blood sugar goal between 150-200 range, patient is not a diabetic. Will check triglyceride Q 12 hours, will follow renal function, electrolytes, CBC closely, goal of triglyceride less than 500 Will discontinue by mouth oxycodone place patient on IV Dilaudid Will follow I's and Os obtained GI consultation, patient seen by Dr. Bowman he agrees with current management and recommend Nephro eval for fluid management Will place patient on Ensure Clear Urinary tract infection with urine culture growing E coli will place patient on IV ceftriaxone Obesity will recommend low calorie diet and exercise DVT prophylaxis continue heparin
[2020-05-15 16:14] LABS: Glucose, Whole Blood 171 mg/dL (60-115)
[2020-05-15] MEDS: Insulin Lispro 100 UNIT/ML 3 ML VIAL SUBCUT (17:30)
[2020-05-15] MEDS: cefTRIAXone sodium 1 GM in 0.9 % Sodium Chloride 50 ML IV (17:32)
[2020-05-15 18:24] LABS: Glucose, Whole Blood 144 mg/dL (60-115)
[2020-05-15] MEDS: Dextrose 5 % and Lactated Ring 1,000 ML 250 ML IVCONT ×2 (18:50→22:40)
--- NOTE | 2020-05-15 20:24 | CONS_ITS ---
DATE OF SERVICE: 05/15/2020 REFERRING PHYSICIAN: Stephane Paz MD REASON FOR CONSULTATION: Acute pancreatitis. HISTORY OF PRESENT ILLNESS: The patient is a 45-year-old woman, who was admitted to the hospital after presenting to the emergency room on May 13 with complaints of abdominal pain. Symptoms began approximately 24 hours prior to admission without any precipitating factors. She has a history of pancreatitis secondary to hypertriglyceridemia and the pain that she described was similar as previous episodes in the past. The pain was epigastric, which radiated around the right side into the back and became associated with nausea and nonbloody emesis. She denies any fevers or chills, hematemesis, or melena. She does not drink alcohol and has had prior cholecystectomy. She was evaluated in the emergency department, where laboratory studies revealed lipase of 1595 and a triglyceride level of 6659. She was admitted to the ICU and treated with insulin and IV fluids with improvement in her triglyceride to 2171. As part of her evaluation, she underwent CT scanning of the abdomen and pelvis, which is reviewed. This is interpreted as showing changes of acute interstitial pancreatitis. No necrosis was identified on the IV contrast study. The patient was transferred to the floor and today, states she has been able to tolerate some clear liquids, but is nauseous. She has received IV narcotic for pain medication as well as antiemetics. PAST MEDICAL HISTORY: 1. Hypertriglyceridemia, but she states she has been off medication due to insurance issues. 2. Pancreatitis as above. 3. Constipation. 4. Anemia. CURRENT MEDICATIONS: Her current medication list is reviewed in the chart. She has not been prescribed any new medications, which would be expected to cause pancreatitis. ALLERGIES: FENOFIBRATE AND PRAVASTATIN. PAST SURGICAL HISTORY: Includes cholecystectomy. REVIEW OF SYSTEMS: SKIN: No pruritus. HEENT: Negative. CARDIOPULMONARY: She denies shortness of breath or chest pain. GASTROINTESTINAL: As above. GENITOURINARY: Negative. NEUROPSYCHIATRIC: Negative. PHYSICAL EXAMINATION: GENERAL: Shows a pleasant female, lying in bed, complaining of nausea. Holding a blue emesis bag. VITAL SIGNS: Show tachycardia. She has been afebrile. SKIN: Anicteric. HEENT: Shows no scleral icterus. NECK: Without lymphadenopathy or thyromegaly. LUNGS: Clear. HEART: Tachycardia with regular S1, S2. No murmur. ABDOMEN: Somewhat distended. Bowel sounds are diminished. There is no guarding or rebound. There is mild diffuse tenderness to palpation. EXTREMITIES: Without edema. LABORATORY DATA: Reviewed as is her CAT scan. IMPRESSION: Pancreatitis. This appears consistent with pancreatitis secondary to hypertriglyceridemia. I would recommend continuing treatment of her triglycerides as is being done from medical standpoint. For her pancreatitis, she is receiving intravenous fluids and I would recommend continuing this with supportive care with antiemetics and antinausea medications. If she does have a fever or worsening pain, I would recommend repeating a CT scan to reassess her pancreas. She did have some worsening of her renal function today and this will need to be carefully monitored. Renal consultation should be considered as she has been somewhat behind on her fluids in terms of urinary output. Thanks for asking me to see her. I will follow her in the hospital with you. MD LANI Banerjee/AMANDA / [phone]
[2020-05-15] MEDS: Insulin Glargine,Hum.rec.anlog 100 UNIT/ML 10 ML VIAL 30 UNIT SUBCUT (20:39)
[2020-05-15 20:40] LABS: Glucose Urine UA NEG (NEG); Leukocyte Esterase Urine NEG (NEG); Nitrite Urine NEG (NEG); Specific Gravity - Urine >= 1.030 (1.005-1.025); Urine Blood 2+ (NEG); Urine Ketones NEG (NEG); Urine Protein 2+ MG/DL (NEG-TRACE)
[2020-05-15] MEDS: Sennosides 8.6 MG TABLET PO (20:40)
[2020-05-15] MEDS: traZODone HCL 100 MG TABLET PO (20:40)
[2020-05-15 20:42] LABS: Appearance Urine HAZY; Color Urine YELLOW
[2020-05-15 20:42] LABS: Glucose, Whole Blood 146 mg/dL (60-115)
[2020-05-15 20:47] LABS: Bacteria Urine 1+ /LPF; Squamous Epithelial Cell Urine 1+ /LPF; WBC Urine 0 /HPF (0-4)
[2020-05-15 21:03] LABS: Triglycerides 1490 mg/dL
[2020-05-15 21:16] LABS: Creatinine Urine 202.74 mg/dL; Sodium Urine Random < 20.0 mmol/L; Total Protein Urine Random 157 mg/dL (<12)
[2020-05-15 22:14] LABS: Glucose, Whole Blood 184 mg/dL (60-115)
[2020-05-16] MEDS: HYDROmorphone HCl 1 MG/ML SYRINGE IVPUSH ×6 (00:36→22:12)
[2020-05-16 02:02] LABS: Glucose, Whole Blood 157 mg/dL (60-115)
[2020-05-16 02:02] LABS: Glucose, Whole Blood 159 mg/dL (60-115)
[2020-05-16] MEDS: Dextrose 5 % and Lactated Ring 1,000 ML 250 ML IVCONT ×2 (02:23→06:22)
[2020-05-16 04:00] VITALS: BP 140/61; PULSE 124; RESP 18; TEMP 36.2; O2SAT 96
[2020-05-16 05:03] LABS: Glucose, Whole Blood 149 mg/dL (60-115)
[2020-05-16 06:00] VITALS: BMI 38.2
[2020-05-16 06:17] LABS: MANUAL DIFF FLAG NO
[2020-05-16] MEDS: Heparin Sodium,Porcine 5,000 UNIT/ML VIAL 5000 UNIT SUBCUT ×3 (06:23→22:12)
[2020-05-16 06:42] LABS: Glucose, Whole Blood 187 mg/dL (60-115)
[2020-05-16 06:48] LABS: Basophils Percent Auto 0.2 % (0-2); Eosinophils Absolute Auto 0.1 X10*3/uL (0.0-0.4); Eosinophils Percent Auto 0.8 % (0-4); Hematocrit 34.1 % (37-47); Hemoglobin 11.3 g/dl (12.0-16.0); Imm Gran Abs Auto 0.05 X10*3/uL (0.00-0.03); Imm Gran Pct Auto 0.6 % (0.0-0.4); Lymphocytes Absolute Auto 1.1 X10*3/uL (1.2-4.9); Lymphocytes Percent Auto 11.7 % (20-40); Mean Corpuscular HGB Conc 33.1 g/dl (31.0-35.0); Mean Corpuscular Hemoglobin 25.1 pg (27.0-33.0); Mean Corpuscular Volume 75.8 fL (80-98); Mean Platelet Volume 10.8 fL (9.4-12.3); Monocytes Absolute Auto 0.4 X10*3/uL (0.1-1.2); Monocytes Percent Auto 4.8 % (2-11); Neutrophils Absolute Auto 7.3 X10*3/uL (2.0-8.3); Neutrophils Percent Auto 81.9 % (45-73); Platelet Count 184 X10*3/uL (160-400); Red Cell Distribution Width 16.8 % (11.0-16.0); White Blood Count 8.9 X10*3/uL (4.8-10.8)
[2020-05-16 06:51] LABS: Total Protein 5.4 g/dL (6.5-8.0)
[2020-05-16 07:03] LABS: Anion Gap 15 (12-20); Blood Urea Nitrogen 23 mg/dL (9-16); Calcium 6.5 mg/dL (8.4-10.2); Carbon Dioxide 21 mmol/L (22-29); Chloride 102 mmol/L (96-108); Creatinine Clr Calc Pharmacy 57.5; Estimated Glomerular Filt Rate 43; Glucose Random 166 mg/dL (60-115); Potassium 3.9 mmol/L (3.3-5.1); Sodium 134 mmol/L (135-145); Triglycerides 1006 mg/dL
[2020-05-16 07:17] LABS: Lipase 676 U/L (8-78)
[2020-05-16 08:00] VITALS: BP 136/77; PULSE 88; RESP 18; TEMP 35.8; O2SAT 95
[2020-05-16 08:40] LABS: Glucose, Whole Blood 150 mg/dL (60-115)
[2020-05-16] MEDS: ondansetron HCL 4 MG/2 ML VIAL IVPUSH ×3 (08:54→22:13)
[2020-05-16] MEDS: Fenofibrate,Micronized 134 MG CAPSULE PO (08:54)
[2020-05-16] MEDS: Docusate Sodium 100 MG CAPSULE PO (08:55)
[2020-05-16] MEDS: Atorvastatin Calcium 80 MG TABLET PO (08:55)
[2020-05-16 09:17] LABS: Glucose, Whole Blood 150 mg/dL (60-115)
--- NOTE | 2020-05-16 10:08 | P.CDIC_ITS ---
CDI Concurrent Query Service Date: 05/16/20 Documentation Clarification: Please clarify if you are treating a proba ble/suspected/likely or confirmed: Acute kidney failure (poa, resolved, treat, rule out) Please specify if known Provider Response: Other Other Diagnosis: miguel PLEASE DO NOT DELETE/MODIFY EXISTING CONTENT Additional information is needed in order to code to the highest accuracy and appropriate Severity of Illness (SOI). Please clarify the information noted below in your progress notes and discharge summary. Risk Factors/Clinical Indicators/Treatments GFR >60 37 43 CR 0.73 1.53 BUN 14 23 PN: 05/15 patient with persistent abdominal pain and nausea, lipase slowly trending down from 1595 but patient noted to have worsening renal function/acidosis. IV narcoitics, antiemetics, Insulin, IV fluids. PN: Gastro 05/15 - She did have some worsening renal function today, renal consult should be considered. CDS: Fátima Cedillo CCS, CDIS Contact Number: [phone] Please Review the information above and exercise your independent professional judgment in responding to the query. If you concur, pleas document in the PROGRESS NOTES and DISCHARGE SUMMARY. If you do not agree with the query, please document in the query above. THIS QUERY IS PART OF THE PERMANENT MEDICAL RECORD
[2020-05-16 10:21] LABS: Glucose, Whole Blood 131 mg/dL (60-115)
--- NOTE | 2020-05-16 11:48 | MHC.CM.PN ---
PER MULTIDISCIPLINARY ROUNDS NO DISCHARGE TODAY, POSSIBLE D/C Wednesday05/17/20. DISCHARGE PLAN: HOME W/NO SERVICES, FAMILY TO TRANSPORT.
[2020-05-16 11:50] LABS: Glucose, Whole Blood 124 mg/dL (60-115)
[2020-05-16 12:00] VITALS: BP 130/70; PULSE 121; RESP 18; TEMP 37.1; O2SAT 96
--- NOTE | 2020-05-16 12:00 | HO.PM.IMPN ---
Subjective Subjective Date of Service: 05/16/20 Interval History: Patient complaining of persistent abdominal pain although looks comfortable in no acute distress, feels nauseous tolerating water, passing gas no bowel movement. General no headache, no dizziness, no fever chills. CVS no chest pain, no palpitation. Respiratory no cough no shortness of breath. Gastrointestinal nausea and diffuse abdominal pain. Physical Exam Vital Signs: Vital Signs: Last Vital Signs Temp 96.4 F L 05/16/20 08:00 Pulse 88 05/16/20 08:00 Resp 18 05/16/20 08:00 BP 136/77 05/16/20 08:00 Pulse Ox 95 05/16/20 08:00 Body Mass Index 38.2 General in distress due to pain. Neck is supple no JVD. CVS regular rate rhythm, Respiratory lungs clear to auscultation, diminished breath sound, no respiratory distress, no wheeze, no rhonchi. Gastrointestinal abdomen obese tender in epigastric area, bowel sounds audible, no guarding , no rigidity, no worsening distension. Extremities no clubbing cyanosis or edema. Neuro nonfocal . Skin no rash Objective Data Current Medications Generic Name Dose Route Start Last Admin Trade Name Freq PRN Reason Stop Dose Admin Atorvastatin Calcium 80 mg 05/14/20 11:00 05/16/20 08:55 Atorvastatin Calcium 80 Mg Tablet PO 80 mg DAILY IVAN Administration Docusate Sodium 100 mg 05/15/20 09:00 05/16/20 08:55 Docusate Sodium 100 Mg Capsule PO 100 mg DAILY IVAN Administration Fenofibrate 134 mg 05/14/20 11:00 05/16/20 08:54 Fenofibrate,Micronized 134 Mg Capsule PO 134 mg DAILY IVAN Administration Heparin Sodium (Porcine) 5,000 unit 05/13/20 22:45 05/16/20 06:23 Heparin Sodium,Porcine 5,000 Unit/Ml Vial SUBCUT 5,000 unit Q8H IVAN Administration Hydromorphone HCl 1 mg 05/15/20 10:04 05/16/20 08:52 Hydromorphone Hcl 1 Mg/Ml Syringe IVPUSH 1 mg Q4H PRN Administration abdominal pain Dextrose/Lactated Ringer's 1,000 mls @ 150 mls/hr 05/14/20 07:30 05/16/20 10:47 D5lr IVCONT Infused .Q6H40M IVAN Infusion Ceftriaxone Sodium 1 gm/ 50 mls @ 100 mls/hr 05/15/20 17:00 05/15/20 18:05 Sodium Chloride IV Infused Q24H [facility] Infusion Insulin Glargine 10 unit 05/16/20 21:00 Insulin Glargine,Hum.Rec.Anlog 100 Unit/Ml 10 Ml Vial SUBCUT BID [facility] Insulin Human Lispro 0 unit 05/15/20 11:30 05/16/20 11:48 Insulin Lispro 100 Unit/Ml 3 Ml Vial SUBCUT Not Given QIDACHS [facility] Protocol Ondansetron HCl 4 mg 05/15/20 08:58 05/16/20 08:54 Ondansetron Hcl 4 Mg/2 Ml Vial IVPUSH 4 mg Q6H PRN Administration Nausea Polyethylene Glycol 17 gm 05/15/20 09:00 05/16/20 08:55 Polyethylene Glycol 3350 17 Gm Powd.Pack PO Not Given DAILY [facility] Senna 8.6 mg 05/14/20 21:00 05/15/20 20:40 Sennosides 8.6 Mg Tablet PO 8.6 mg BEDTIME IVAN Administration Trazodone HCl 100 mg 05/14/20 18:43 05/15/20 20:40 Trazodone Hcl 100 Mg Tablet PO 100 mg BEDTIME PRN Administration insomnia Labs CBC & Chem 7: 05/16/20 06:04 05/16/20 06:04 Microbiology Microbiology Results: Microbiology 05/13/20 20:20 Blood - Venous Blood Culture - Preliminary No growth after 48 hours. 05/13/20 20:20 Blood - Venous Blood Culture - Preliminary No growth after 48 hours. 05/13/20 17:40 Urine clean catch - Clean Catch Midstream Urine Culture - Final Escherichia coli Assessment and Plan (1) Acute pancreatitis: Status: Acute (2) Hypertriglyceridemia: Status: Acute (3) UTI (urinary tract infection): Status: Acute (4) Hyperlipidemia: Status: Acute (5) Hx of pancreatitis: Status: Acute (6) Chronic idiopathic constipation: Status: Acute Assessment and Plan: 45-year-old female patient presented to [facility] with 2 days of nausea vomiting and abdominal pain workup revealed elevated WBC 18.2 bicarb 17 normal LFTs albumin 4.1,lipase 1595, and trig 6659. abdom CT ?boggy with diffuse peripancreatic inflammatory changes or fluid, homogeneous enhancement to the pancreatic parenchyma. No pancreatic ductal dilatation. Overall the appearance is most consistent with acute interstitial pancreatitis similar to the 08/25/2019 study.?patient was admitted to ICU for management of her hypertriglyceridemia with an insulin drip. She was started on insulin 3u/hr, along with D5LR at 80cc/hr to keep her glucose level up, subsequently Triglycerides were down to the 4000 range this morning, insulin drip was discontinued and patient placed on Lantus insulin 30 units patient started on atorvastatin and fenofibrate. 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 follow blood sugars Q 2 hrs with blood sugar goal between 150-200 range, patient is not a diabetic. Will check triglyceride at am, will follow renal function, electrolytes, CBC closely, goal of triglyceride less than 500 Continue IV Dilaudid,follow I's and Os , discussed with Nephro they agree with current change in IV fluid Encourage Ensure Clear Obtain chest x-ray due to tachypnea that showed bilateral atelectasis will add incentive spirometry. Encourage out of bed to chair. Acute renal failure likely due to dehydration and 3rd spacing with acute pancreatitis, diagnosed yesterday, resolved with IV hydration Urinary tract infection with urine culture growing E coli continue IV ceftriaxone day 2 Obesity will recommend low calorie diet and exercise DVT prophylaxis continue heparin
[2020-05-16 12:12] LABS: Glucose, Whole Blood 120 mg/dL (60-115)
--- NOTE | 2020-05-16 12:31 | CONS_ITS ---
DATE OF SERVICE: 05/15/2020 REASON FOR CONSULTATION: Consult requested by the medical team to evaluate and help in management of the patient with acute kidney injury. HISTORY OF PRESENT ILLNESS: The patient is a 45-year-old female with past medical history of hypertriglyceridemia with pancreatitis associated with it who presents to the ER with 2-day complaints of nausea, vomiting, and abdominal pain. The patient denied any history of gallstone issues or alcohol abuse. She stated the pain was similar to the pain she had last year. She did not have any fever, chills, dysuria, hematuria, flank pain, shortness of breath, cough, or chest pain. She has tried to control her triglyceride level with weight loss, low-fat diet, and exercise . Lab work done showed the patient had a white count of 18.2. Sodium was 132 and bicarb was 17. Lipase was . Initial lactic acid level was 2.8. The patient was admitted to the ICU for insulin drip and management of triglyceridemia-induced pancreatitis. Her insulin drip was discontinued this morning and triglyceride level this morning was 4000. She was also initiated on atorvastatin and fenofibrate. Renal consult has been requested as the patient's BUN and creatinine is elevated to 23/1.5. Baseline creatinine was 0.73. The patient did have CT scan with intravenous contrast in the ER. PAST MEDICAL HISTORY: History of anemia, history of chronic idiopathic constipation, history of pancreatitis in the setting of triglyceridemia, hyperlipidemia, and triglyceridemia. FAMILY HISTORY: Significant for hypertension, dyslipidemia, and pancreatitis which is recurrent in father. Mother had hypertension, diabetes, and acute CVA. PAST SURGICAL HISTORY: Cholecystectomy. PERSONAL AND SOCIAL HISTORY: The patient lives with the family in an apartment. Never drank alcohol. Does not smoke. Denies recreational drug use. ALLERGIES: INCLUDE FENOFIBRATE AND PRAVASTATIN. MEDICATIONS: At home include Colace and polyethylene glycol. PHYSICAL EXAMINATION: GENERAL: The patient is resting in the bed, in distress due to abdominal pain. Awake, alert, and oriented x3. VITAL SIGNS: Blood pressure was 144/81, pulse 94, and temperature 99.1 degree Fahrenheit. HEENT EXAM: Shows pupils are equal, round, and reactive bilaterally to light. No jugular venous distention is noted. NECK: Supple. Mucosa dry. There is no scleral icterus or conjunctival congestion. CARDIOVASCULAR SYSTEM: S1 and S2 without rub or murmur. RESPIRATORY SYSTEM: Air entry decreased in the bases. No crepitation or rhonchi is noted. ABDOMEN: Distended and soft. There was epigastric tenderness. No guarding or rigidity. Bowel sounds normal. EXTREMITIES: Showed no edema. There is no palpable cyanosis or clubbing. NEURO EXAM: Essentially nonfocal. LABORATORY DATA: Labs done today: WBC is 14.8, hemoglobin 14.8, hematocrit 44.5, and platelets 310. INR 1.2 done on 05/13. Sodium 132, potassium 4.2, chloride 102, CO2 of 14, BUN 23, anion gap was 20, creatinine 1.53, glucose 143, calcium 6.3, phosphorus 3.9, lipase 1355, and triglyceride 2171. Urinalysis shows specific gravity 1.020, pH 7.5, cloudy, glucose was negative, ketones 15, blood 2+, nitrate positive, RBC 5 to 9, WBC 0 to 2. COVID was negative. IMAGING STUDY: Abdomen CT with intravenous contrast showed no hydronephrosis or calculi. There is fullness of the pancreas with inflammatory changes consistent with acute interstitial pancreatitis. IMPRESSION: 1. 45-year-old female with acute kidney injury. Acute kidney injury in this patient likely secondary to severe prerenal state in the setting of intravascular volume depletion due to pancreatitis with third-spacing. The patient also could have had contrast-induced nephropathy as she did get intravenous CT scan with IV contrast. Obstruction has been ruled out on this patient. At this juncture, I doubt the patient has acute glomerulonephritis/interstitial disease. 2. Acute pancreatitis in the setting of hypertriglyceridemia. 3. Metabolic acidosis, which is anion gap type with anion gap of around 20. Metabolic acidosis in this patient due to multifactorial reasons including ketoacidosis, lactic acidosis, and renal insufficiency. 4. Hyperlipidemia. RECOMMENDATION: At this juncture, I taken liberty to order full urinalysis. I have ordered spot urine for electrolytes, protein, and creatinine. Her baseline creatinine is 0.9 and obstruction has been ruled out based on the CAT scan done in the ER. I agree with intravenous fluids with lactated Ringer's solution. If acidosis worsens, we would consider IV fluids with bicarb. I agree with IV ceftriaxone for now. Hypertriglyceridemia management as per the medical team. Unfortunately, given contrast in the possibility of contrast nephropathy, creatinine would continue to worsen, plateau and hopefully come down over the next 24 to 48 hours. Thank you for allowing me to participate in medical management of the patient. MD CLEVE Wallace/AMANDA / [phone]
[2020-05-16] MEDS: Dextrose 5 % and Lactated Ring 1,000 ML 100 ML IVCONT (12:44)
[2020-05-16 15:04] LABS: Glucose, Whole Blood 118 mg/dL (60-115)
[2020-05-16 15:27] VITALS: BP 119/69; PULSE 121; RESP 16; TEMP 37.2; O2SAT 96
[2020-05-16 15:59] LABS: Glucose, Whole Blood 125 mg/dL (60-115)
[2020-05-16] MEDS: cefTRIAXone sodium 1 GM in 0.9 % Sodium Chloride 50 ML IV (17:26)
[2020-05-16 18:05] LABS: Glucose, Whole Blood 119 mg/dL (60-115)
[2020-05-16 19:19] VITALS: BP 138/69; PULSE 119; RESP 18; TEMP 37.6; O2SAT 96
[2020-05-16 19:51] LABS: Glucose, Whole Blood 122 mg/dL (60-115)
--- NOTE | 2020-05-16 21:32 | PM.PNNEP ---
Subjective Subjective Date of Service: 05/16/20 Interval history: Patient complaining of persistent abdominal pain Renal func is better General no headache, no dizziness, no fever chills. CVS no chest pain, no palpitation. Respiratory no cough no shortness of breath. Gastrointestinal nausea and diffuse abdominal pain. Physical Exam Vital Signs: Vital Signs: Last Vital Signs Temp 99.6 F 05/16/20 19:19 Pulse 119 H 05/16/20 19:19 Resp 18 05/16/20 19:19 BP 138/69 05/16/20 19:19 Pulse Ox 96 05/16/20 19:19 Body Mass Index 38.2 Const: General: cooperative, healthy appearing, comfortable, no acute distress, well developed, alert, awake, Physically active and tired appearing Nutritional Appearance: obese Orientation/consciousness: patient oriented x3 Limitations: no limitations HENMT: Head: Yes normal to inspection, Yes No palpable skull fracture present, Yes normocephalic, Yes atraumatic, No abrasion, No Mendoza's sign, No contusion, No cranial bruits, No hematoma, No laceration, No occipital foramen tenderness, No palpable skull fracture and No raccoon eyes Face and sinus: Yes normal facial exam Eyes: General: appearance normal, both eyes and all related structures Neck: Neck: Yes normal visual inspection, Yes full ROM, Yes no lymphadenopathy, Yes no meningeal signs, Yes trachea midline, Yes supple and No tender Chest: Chest palpation & inspection: normal inspection of the chest and normal palpation of entire chest wall Resp: Effort & Inspection: normal respiratory effort and able to speak in complete sentences Auscultation: clear to auscultation bilaterally Cardio: Jugular venous distension: no JVD Rate: regular rate Rhythm: regular rhythm Heart sounds: S1 normal heart sound present, S2 normal heart sound present and normal S1 and S2 GI: Inspection: Yes normal to inspection, No abdominal wall ecchymosis and Yes obesity Palpation (GI): Soft to palpation, not firm, Tenderness to palpation present (GI) other (diffuse), no guarding and not rigid : General: No CVA tenderness and Yes no CVA tenderness Back/Spine/Pelvis: Back: no CVA tenderness, No CVA tenderness and No back tenderness Skin: General skin exam: no rashes or lesions noted and elasticity normal Neuro: General: patient oriented x3, no meningeal signs and CN's II-XI intact bilaterally Cranial nerves: Yes CN's II-XII intact bilaterally Extrem: General: Yes normal to inspection and Yes full ROM Psych: Appearance: grossly normal, well kempt and not disheveled Objective Data Labs CBC & Chem 7: 05/16/20 06:04 05/16/20 06:04 Labs: Laboratory Results - last 24 hr 05/15/20 05/16/20 05/16/20 22:09 00:35 01:58 WBC RBC Hgb Hct MCV MCH MCHC RDW Plt Count MPV Immature Gran % (Auto) Neut % (Auto) Lymph % (Auto) [place] % (Auto) Eos % (Auto) Baso % (Auto) Lymph # (Auto) [place] # (Auto) Eos # (Auto) Baso # (Auto) Abs Immat Gran (auto) Absolute Neuts (auto) Absolute Nucleated RBC Nucleated RBC % (auto) Sodium Potassium Chloride Carbon Dioxide Anion Gap BUN Creatinine Estim Creat Clear Calc Estimated GFR POC Glucose 184 H 157 H 159 H Random Glucose Calcium Total Protein Triglycerides Lipase 05/16/20 05/16/20 05/16/20 04:44 06:04 06:04 WBC 8.9 RBC 4.50 D Hgb 11.3 L D Hct 34.1 L D MCV 75.8 L MCH 25.1 L MCHC 33.1 RDW 16.8 H Plt Count 184 D MPV 10.8 Immature Gran % (Auto) 0.6 H Neut % (Auto) 81.9 H Lymph % (Auto) 11.7 L [place] % (Auto) 4.8 Eos % (Auto) 0.8 Baso % (Auto) 0.2 Lymph # (Auto) 1.1 L [place] # (Auto) 0.4 Eos # (Auto) 0.1 Baso # (Auto) 0.0 Abs Immat Gran (auto) 0.05 H Absolute Neuts (auto) 7.3 Absolute Nucleated RBC 0.000 Nucleated RBC % (auto) 0.0 Sodium 134 L Potassium 3.9 Chloride 102 Carbon Dioxide 21 L Anion Gap 15 BUN 23 H Creatinine 1.34 Estim Creat Clear Calc 57.5 Estimated GFR 43 POC Glucose 149 H Random Glucose 166 H Calcium 6.5 L Total Protein Triglycerides 1006 Lipase 676 H 05/16/20 05/16/20 05/16/20 06:04 06:38 08:36 WBC RBC Hgb Hct MCV MCH MCHC RDW Plt Count MPV Immature Gran % (Auto) Neut % (Auto) Lymph % (Auto) [place] % (Auto) Eos % (Auto) Baso % (Auto) Lymph # (Auto) [place] # (Auto) Eos # (Auto) Baso # (Auto) Abs Immat Gran (auto) Absolute Neuts (auto) Absolute Nucleated RBC Nucleated RBC % (auto) Sodium Potassium Chloride Carbon Dioxide Anion Gap BUN Creatinine Estim Creat Clear Calc Estimated GFR POC Glucose 187 H 150 H Random Glucose Calcium Total Protein 5.4 L D Triglycerides Lipase 05/16/20 05/16/20 05/16/20 09:13 10:17 10:44 WBC RBC Hgb Hct MCV MCH MCHC RDW Plt Count MPV Immature Gran % (Auto) Neut % (Auto) Lymph % (Auto) [place] % (Auto) Eos % (Auto) Baso % (Auto) Lymph # (Auto) [place] # (Auto) Eos # (Auto) Baso # (Auto) Abs Immat Gran (auto) Absolute Neuts (auto) Absolute Nucleated RBC Nucleated RBC % (auto) Sodium Potassium Chloride Carbon Dioxide Anion Gap BUN Creatinine Estim Creat Clear Calc Estimated GFR POC Glucose 150 H 131 H 124 H Random Glucose Calcium Total Protein Triglycerides Lipase 05/16/20 05/16/20 05/16/20 12:05 14:59 15:51 WBC RBC Hgb Hct MCV MCH MCHC RDW Plt Count MPV Immature Gran % (Auto) Neut % (Auto) Lymph % (Auto) [place] % (Auto) Eos % (Auto) Baso % (Auto) Lymph # (Auto) [place] # (Auto) Eos # (Auto) Baso # (Auto) Abs Immat Gran (auto) Absolute Neuts (auto) Absolute Nucleated RBC Nucleated RBC % (auto) Sodium Potassium Chloride Carbon Dioxide Anion Gap BUN Creatinine Estim Creat Clear Calc Estimated GFR POC Glucose 120 H 118 H 125 H Random Glucose Calcium Total Protein Triglycerides Lipase 05/16/20 05/16/20 18:01 19:47 WBC RBC Hgb Hct MCV MCH MCHC RDW Plt Count MPV Immature Gran % (Auto) Neut % (Auto) Lymph % (Auto) [place] % (Auto) Eos % (Auto) Baso % (Auto) Lymph # (Auto) [place] # (Auto) Eos # (Auto) Baso # (Auto) Abs Immat Gran (auto) Absolute Neuts (auto) Absolute Nucleated RBC Nucleated RBC % (auto) Sodium Potassium Chloride Carbon Dioxide Anion Gap BUN Creatinine Estim Creat Clear Calc Estimated GFR POC Glucose 119 H 122 H Random Glucose Calcium Total Protein Triglycerides Lipase Microbiology Microbiology Results: Microbiology 05/13/20 20:20 Blood - Venous Blood Culture - Preliminary No growth after 48 hours. 05/13/20 20:20 Blood - Venous Blood Culture - Preliminary No growth after 48 hours. 05/13/20 17:40 Urine clean catch - Clean Catch Midstream Urine Culture - Final Escherichia coli Assessment & Plan Assessment and plan (1) Acute pancreatitis: Status: Acute (2) Hypertriglyceridemia: Status: Acute (3) UTI (urinary tract infection): Status: Acute (4) Hyperlipidemia: Status: Acute (5) Hx of pancreatitis: Status: Acute (6) Chronic idiopathic constipation: Status: Acute Assessment and Plan: 1. 45-year-old female with acute kidney injury. Acute kidney injury in this patient likely secondary to severe prerenal state in the setting of intravascular volume depletion due to pancreatitis with third-spacing. The patient also could have had contrast-induced nephropathy as she did get intravenous CT scan with IV contrast. Obstruction has been ruled out on this patient. At this juncture, I doubt the patient has acute glomerulonephritis/interstitial disease. 2. Acute pancreatitis in the setting of hypertriglyceridemia. 3. Metabolic acidosis, which is anion gap type with anion gap of around 20. Metabolic acidosis in this patient due to multifactorial reasons including ketoacidosis, lactic acidosis, and renal insufficiency. 4. Hyperlipidemia. RECOMMENDATION: Her baseline creatinine is 0.9 and obstruction has been ruled out based on the CAT scan done in the ER. I agree with intravenous fluids with lactated Ringer's solution- Lowered rate to 100 ml/ hr Hypertriglyceridemia management as per the medical team. Unfortunately, given contrast and has contrast nephropathy, d/w medical team Thank you for allowing me to participate in medical management of the patient. Time Spent With Patient Time: Total time spent is greater than 50% in coordination of care (as documented) at patient's floor/unit and/or counseling patient: Procedures Date of Service Date of Service: 05/16/20
[2020-05-16 22:11] LABS: Glucose, Whole Blood 115 mg/dL (60-115)
[2020-05-16] MEDS: Insulin Glargine,Hum.rec.anlog 100 UNIT/ML 10 ML VIAL 10 UNIT SUBCUT (22:13)
[2020-05-16] MEDS: Sennosides 8.6 MG TABLET PO (22:14)
[2020-05-17] VITALS (9 sets, daily range): BP systolic 131–158; BP diastolic 64–87; PULSE 52–127; RESP 18–20; TEMP 36.8–37.6; O2SAT 92–96
[2020-05-17] MEDS: Dextrose 5 % and Lactated Ring 1,000 ML 100 ML IVCONT
[2020-05-17 00:40] LABS: Glucose, Whole Blood 123 mg/dL (60-115)
[2020-05-17] MEDS: HYDROmorphone HCl 1 MG/ML SYRINGE IVPUSH ×6 (02:05→23:47)
[2020-05-17 04:07] LABS: Glucose, Whole Blood 146 mg/dL (60-115)
[2020-05-17 04:10] LABS: Glucose, Whole Blood 134 mg/dL (60-115)
[2020-05-17] MEDS: Heparin Sodium,Porcine 5,000 UNIT/ML VIAL 5000 UNIT SUBCUT ×3 (06:06→23:45)
[2020-05-17 07:29] LABS: Anion Gap 11 (12-20); Blood Urea Nitrogen 12 mg/dL (9-16); Calcium 7.2 mg/dL (8.4-10.2); Carbon Dioxide 26 mmol/L (22-29); Chloride 102 mmol/L (96-108); Creatinine Clr Calc Pharmacy 93.8; Estimated Glomerular Filt Rate > 60; Glucose Random 125 mg/dL (60-115); Sodium 135 mmol/L (135-145); Triglycerides 595 mg/dL
[2020-05-17 07:40] LABS: Lipase 398 U/L (8-78)
[2020-05-17 08:13] LABS: Glucose, Whole Blood 138 mg/dL (60-115)
[2020-05-17] MEDS: Atorvastatin Calcium 80 MG TABLET PO (08:48)
[2020-05-17] MEDS: Fenofibrate,Micronized 134 MG CAPSULE PO (08:48)
[2020-05-17] MEDS: Docusate Sodium 100 MG CAPSULE PO (08:48)
[2020-05-17] MEDS: polyethylene glycoL 3350 17 GM POWD.PACK PO (08:48)
[2020-05-17] MEDS: ondansetron HCL 4 MG/2 ML VIAL IVPUSH ×3 (08:51→22:28)
[2020-05-17 11:18] LABS: Glucose, Whole Blood 132 mg/dL (60-115)
--- NOTE | 2020-05-17 14:36 | MHC.CLN ---
F/U PO INTAKE REMAINS POOR DIET RX: CARDIAC-APPROPRIATE PT RECEIVING ENSURE CLEAR TID TO INCREASE KCALS MONITOR PO INTAKE CLOSELY
--- NOTE | 2020-05-17 17:01 | HO.PM.IMPN ---
Subjective Subjective Date of Service: 05/18/20 Interval History: Patient complaining of persistent abdominal pain and nausea, not tolerating diet able to drink liquids blood sugars stable around 130, noted to be tachycardic, oxygenation stable ROS General no headache, no dizziness, no fever chills. CVS no chest pain, no palpitation. Respiratory no cough, no shortness of breath. Gastrointestinal nausea and diffuse abdominal pain. Physical Exam Vital Signs: Vital Signs: Last Vital Signs Temp 99.6 F 05/17/20 15:43 Pulse 67 05/17/20 15:43 Resp 18 05/17/20 15:43 BP 141/78 H 05/17/20 15:43 Pulse Ox 93 05/17/20 15:43 Body Mass Index 38.2 Objective Data Current Medications Generic Name Dose Route Start Last Admin Trade Name Freq PRN Reason Stop Dose Admin Atorvastatin Calcium 80 mg 05/14/20 11:00 05/17/20 08:48 Atorvastatin Calcium 80 Mg Tablet PO 80 mg DAILY IVAN Administration Docusate Sodium 100 mg 05/15/20 09:00 05/17/20 08:48 Docusate Sodium 100 Mg Capsule PO 100 mg DAILY IVAN Administration Fenofibrate 134 mg 05/14/20 11:00 05/17/20 08:48 Fenofibrate,Micronized 134 Mg Capsule PO 134 mg DAILY IVAN Administration Heparin Sodium (Porcine) 5,000 unit 05/13/20 22:45 05/17/20 14:26 Heparin Sodium,Porcine 5,000 Unit/Ml Vial SUBCUT 5,000 unit Q8H IVAN Administration Hydromorphone HCl 1 mg 05/15/20 10:04 05/17/20 15:15 Hydromorphone Hcl 1 Mg/Ml Syringe IVPUSH 1 mg Q4H PRN Administration abdominal pain Ceftriaxone Sodium 1 gm/ 50 mls @ 100 mls/hr 05/15/20 17:00 05/16/20 18:03 Sodium Chloride IV Infused Q24H [facility] Infusion Lactated Ringer's 500 mls @ 100 mls/hr 05/17/20 17:00 Lr IV 05/17/20 21:59 .Q5H [facility] Insulin Human Lispro 0 unit 05/15/20 11:30 05/17/20 11:29 Insulin Lispro 100 Unit/Ml 3 Ml Vial SUBCUT Not Given QIDACHS [facility] Protocol Ondansetron HCl 4 mg 05/15/20 08:58 05/17/20 15:15 Ondansetron Hcl 4 Mg/2 Ml Vial IVPUSH 4 mg Q6H PRN Administration Nausea Polyethylene Glycol 17 gm 05/15/20 09:00 05/17/20 08:48 Polyethylene Glycol 3350 17 Gm Powd.Pack PO 17 gm DAILY IVAN Administration Senna 8.6 mg 05/14/20 21:00 05/16/20 22:14 Sennosides 8.6 Mg Tablet PO 8.6 mg BEDTIME IVAN Administration Trazodone HCl 100 mg 05/14/20 18:43 05/15/20 20:40 Trazodone Hcl 100 Mg Tablet PO 100 mg BEDTIME PRN Administration insomnia Labs CBC & Chem 7: 05/16/20 06:04 05/18/20 07:52 Microbiology Microbiology Results: Microbiology 05/13/20 20:20 Blood - Venous Blood Culture - Preliminary No growth after 48 hours. 05/13/20 20:20 Blood - Venous Blood Culture - Preliminary No growth after 48 hours. 05/13/20 17:40 Urine clean catch - Clean Catch Midstream Urine Culture - Final Escherichia coli Assessment and Plan (1) Acute pancreatitis: Status: Acute (2) Hypertriglyceridemia: Status: Acute (3) UTI (urinary tract infection): Status: Acute (4) Anemia: Status: Acute (5) Hyperlipidemia: Status: Acute (6) Hx of pancreatitis: Status: Acute (7) Chronic idiopathic constipation: Status: Acute Assessment and Plan: 45-year-old female patient presented to [place] ER with 2 days of nausea vomiting and abdominal pain workup revealed elevated WBC 18.2 bicarb 17 normal LFTs albumin 4.1,lipase 1595, and trig 6659. abdom CT ?boggy with diffuse peripancreatic inflammatory changes or fluid, homogeneous enhancement to the pancreatic parenchyma. No pancreatic ductal dilatation. Overall the appearance is most consistent with acute interstitial pancreatitis similar to the 08/25/2019 study.?patient was admitted to ICU for management of her hypertriglyceridemia with an insulin drip. She was started on insulin 3u/hr, along with D5LR at 80cc/hr to keep her glucose level up, subsequently Triglycerides were down to the 4000 range this morning, insulin drip was discontinued and patient placed on Lantus insulin 30 units patient started on atorvastatin and fenofibrate. 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 Follow-up triglyceride, renal function, electrolytes, CBC closely, goal of triglyceride less than 500 Continue IV Dilaudid,follow I's and Os , discussed with Nephro they agree with current change in IV fluid Encourage Ensure Clear Obtain chest x-ray due to tachypnea/basilar crackles that showed no change from prior study, encourage out of bed /incentive spirometry. Continue close monitoring with above treatment of any worsening hypoxia fever will obtain a repeat CT abdomen discuss care plan with patient. Acute renal failure likely due to dehydration and 3rd spacing with acute pancreatitis, resolved Urinary tract infection with urine culture growing E coli continue IV ceftriaxone day 3 Obesity will recommend low calorie diet and exercise DVT prophylaxis continue heparin
[2020-05-17 17:19] LABS: Glucose, Whole Blood 103 mg/dL (60-115)
[2020-05-17] MEDS: cefTRIAXone sodium 1 GM in 0.9 % Sodium Chloride 50 ML IV (17:21)
[2020-05-17] MEDS: Lactated Ringers 500 ML 100 ML IV (17:23)
[2020-05-17 17:38] LABS: Glucose, Whole Blood 109 mg/dL (60-115)
--- NOTE | 2020-05-17 17:40 | PM.PNNEP ---
Subjective Subjective Date of Service: 05/17/20 Interval history: Patient complaining of persistent abdominal pain and nausea, not tolerating diet able to drink liquids blood sugars stable around 130, noted to be tachycardic, oxygenation stable ROS General no headache, no dizziness, no fever chills. CVS no chest pain, no palpitation. Respiratory no cough, no shortness of breath. Gastrointestinal nausea and diffuse abdominal pain. Physical Exam Vital Signs: Vital Signs: Last Vital Signs Temp 99.6 F 05/17/20 15:43 Pulse 67 05/17/20 15:43 Resp 18 05/17/20 15:43 BP 141/78 H 05/17/20 15:43 Pulse Ox 93 05/17/20 15:43 Body Mass Index 38.2 Objective Data Labs CBC & Chem 7: 05/16/20 06:04 05/17/20 06:22 Labs: Laboratory Results - last 24 hr 05/16/20 05/16/20 05/16/20 18:01 19:47 22:07 Sodium Potassium Chloride Carbon Dioxide Anion Gap BUN Creatinine Estim Creat Clear Calc Estimated GFR POC Glucose 119 H 122 H 115 Random Glucose Calcium Triglycerides Lipase 05/17/20 05/17/20 05/17/20 00:24 02:51 04:07 Sodium Potassium Chloride Carbon Dioxide Anion Gap BUN Creatinine Estim Creat Clear Calc Estimated GFR POC Glucose 123 H 146 H 134 H Random Glucose Calcium Triglycerides Lipase 05/17/20 05/17/20 05/17/20 06:11 06:22 06:22 Sodium Cancelled 135 Potassium Cancelled 4.0 Chloride Cancelled 102 Carbon Dioxide Cancelled 26 Anion Gap Cancelled 11 L BUN Cancelled 12 Creatinine Cancelled 0.82 Estim Creat Clear Calc Cancelled 93.8 Estimated GFR Cancelled > 60 POC Glucose 109 Random Glucose Cancelled 125 H Calcium Cancelled 7.2 L D Triglycerides 595 Lipase 398 H 05/17/20 05/17/20 05/17/20 07:40 11:07 17:15 Sodium Potassium Chloride Carbon Dioxide Anion Gap BUN Creatinine Estim Creat Clear Calc Estimated GFR POC Glucose 138 H 132 H 103 Random Glucose Calcium Triglycerides Lipase Microbiology Microbiology Results: Microbiology 05/13/20 20:20 Blood - Venous Blood Culture - Preliminary No growth after 48 hours. 05/13/20 20:20 Blood - Venous Blood Culture - Preliminary No growth after 48 hours. 05/13/20 17:40 Urine clean catch - Clean Catch Midstream Urine Culture - Final Escherichia coli Assessment & Plan Time Spent With Patient Time: 1. 45-year-old female with acute kidney injury. Acute kidney injury in this patient likely secondary to severe prerenal state in the setting of intravascular volume depletion due to pancreatitis with third-spacing. The patient also could have had contrast-induced nephropathy as she did get intravenous CT scan with IV contrast. Obstruction has been ruled out on this patient. At this juncture, I doubt the patient has acute glomerulonephritis/interstitial disease. 2. Acute pancreatitis in the setting of hypertriglyceridemia. 3. Metabolic acidosis, which is anion gap type with anion gap of around 20. Metabolic acidosis in this patient due to multifactorial reasons including ketoacidosis, lactic acidosis, and renal insufficiency. 4. Hyperlipidemia. RECOMMENDATION: Her baseline creatinine is 0.9 and obstruction has been ruled out based on the CAT scan done in the ER. I agree with intravenous fluids with lactated Ringer's solution- Lowered rate to 100 ml/ hr- Can d/c if pt taking adequate liquids Hypertriglyceridemia management as per the medical team. Unfortunately, given contrast and has contrast nephropathy, d/w medical team Procedures Date of Service Date of Service: 05/17/20
--- NOTE | 2020-05-17 19:08 | PC.NURSE ---
1208- Pt's HR 126. Slight temp 99.7, all oter vitals WNL. Dr. Paz made aware. No new orders at this time.
[2020-05-17 20:27] LABS: Glucose, Whole Blood 121 mg/dL (60-115)
[2020-05-18] VITALS: BP 148/86; PULSE 122; RESP 18; TEMP 37.2; O2SAT 92
[2020-05-18] MEDS: HYDROmorphone HCl 1 MG/ML SYRINGE IVPUSH ×5 (03:52→21:23)
[2020-05-18 03:54] VITALS: BP 158/89; PULSE 112; RESP 18; TEMP 37.9; O2SAT 92
[2020-05-18 06:00] VITALS: BMI 24.0
[2020-05-18] MEDS: Heparin Sodium,Porcine 5,000 UNIT/ML VIAL 5000 UNIT SUBCUT ×2 (06:41→14:30)
[2020-05-18 07:41] LABS: Glucose, Whole Blood 108 mg/dL (60-115)
[2020-05-18] MEDS: ondansetron HCL 4 MG/2 ML VIAL IVPUSH ×2 (07:47→16:42)
[2020-05-18 08:00] VITALS: BP 165/88; PULSE 115; RESP 18; TEMP 37.5; O2SAT 92
[2020-05-18 08:42] LABS: Anion Gap 12 (12-20); Blood Urea Nitrogen 11 mg/dL (9-16); Calcium 7.5 mg/dL (8.4-10.2); Carbon Dioxide 26 mmol/L (22-29); Chloride 101 mmol/L (96-108); Creatinine Clr Calc Pharmacy 81.1; Estimated Glomerular Filt Rate > 60; Glucose Random 109 mg/dL (60-115); Potassium 3.2 mmol/L (3.3-5.1); Sodium 136 mmol/L (135-145); Triglycerides 428 mg/dL
[2020-05-18 08:52] LABS: Lipase 288 U/L (8-78)
[2020-05-18] MEDS: Atorvastatin Calcium 80 MG TABLET PO (08:58)
[2020-05-18] MEDS: Fenofibrate,Micronized 134 MG CAPSULE PO (08:58)
[2020-05-18] MEDS: Lactated Ringers 1,000 ML 125 ML IVCONT (09:03)
[2020-05-18 11:25] LABS: Glucose, Whole Blood 137 mg/dL (60-115)
[2020-05-18] MEDS: iohexoL 350 MG/ML 100 ML INFUS..BTL IV (11:27)
[2020-05-18 11:38] VITALS: BP 155/98; PULSE 118; RESP 16; TEMP 36.4; O2SAT 95
--- NOTE | 2020-05-18 11:52 | P.PNIM_ITS ---
Subjective Subjective Date of Service: 05/18/20 Interval History: Patient feeling better this morning had multiple episodes of loose stools, complaining of less abdominal pain, less nauseous,no acute issues overnight. ROS General no headache, no dizziness, no fever chills. CVS no chest pain, no palpitation. Respiratory no cough, no shortness of breath. Gastrointestinal less nausea and abdominal pain Physical Exam Vital Signs: Vital Signs: Last Vital Signs Temp 97.5 F 05/18/20 11:38 Pulse 118 H 05/18/20 11:38 Resp 16 05/18/20 11:38 BP 155/98 H 05/18/20 11:38 Pulse Ox 95 05/18/20 11:38 Body Mass Index 24.0 General no distress Neck is supple no JVD. CVS regular rate rhythm, Respiratory lungs clear to auscultation, diminished breath sound, no respiratory distress, no wheeze, no rhonchi. Gastrointestinal abdomen obese nontender , bowel sounds audible, soft, no guarding , no rigidity, no worsening distension. Extremities no clubbing cyanosis or edema. Neuro nonfocal . Skin no rash Objective Data Current Medications Generic Name Dose Route Start Last Admin Trade Name Freq PRN Reason Stop Dose Admin Atorvastatin Calcium 80 mg 05/14/20 11:00 05/18/20 08:58 Atorvastatin Calcium 80 Mg Tablet PO 80 mg DAILY IVAN Administration Docusate Sodium 100 mg 05/15/20 09:00 05/17/20 08:48 Docusate Sodium 100 Mg Capsule PO 100 mg DAILY IVAN Administration Fenofibrate 134 mg 05/14/20 11:00 05/18/20 08:58 Fenofibrate,Micronized 134 Mg Capsule PO 134 mg DAILY IVAN Administration Heparin Sodium (Porcine) 5,000 unit 05/13/20 22:45 05/18/20 06:41 Heparin Sodium,Porcine 5,000 Unit/Ml Vial SUBCUT 5,000 unit Q8H [facility]AN Administration Hydromorphone HCl 1 mg 05/15/20 10:04 05/18/20 08:59 Hydromorphone Hcl 1 Mg/Ml Syringe IVPUSH 1 mg Q4H PRN Administration abdominal pain Ceftriaxone Sodium 1 gm/ 50 mls @ 100 mls/hr 05/15/20 17:00 05/17/20 18:27 Sodium Chloride IV Infused Q24H [facility] Infusion Lactated Ringer's 1,000 mls @ 125 mls/hr 05/18/20 08:00 05/18/20 09:03 Lr IVCONT 125 mls/hr .Q8H IVAN Administration Insulin Human Lispro 0 unit 05/15/20 11:30 05/18/20 08:59 Insulin Lispro 100 Unit/Ml 3 Ml Vial SUBCUT Not Given QIDACHS [facility] Protocol Ondansetron HCl 4 mg 05/15/20 08:58 05/18/20 07:47 Ondansetron Hcl 4 Mg/2 Ml Vial IVPUSH 4 mg Q6H PRN Administration Nausea Polyethylene Glycol 17 gm 05/15/20 09:00 05/17/20 08:48 Polyethylene Glycol 3350 17 Gm Powd.Pack PO 17 gm DAILY IVAN Administration Senna 8.6 mg 05/14/20 21:00 05/17/20 20:59 Sennosides 8.6 Mg Tablet PO Not Given BEDTIME IVAN Trazodone HCl 100 mg 05/14/20 18:43 05/15/20 20:40 Trazodone Hcl 100 Mg Tablet PO 100 mg BEDTIME PRN Administration insomnia Labs CBC & Chem 7: 05/16/20 06:04 05/18/20 07:52 Microbiology Microbiology Results: Microbiology 05/13/20 20:20 Blood - Venous Blood Culture - Preliminary No growth after 48 hours. 05/13/20 20:20 Blood - Venous Blood Culture - Preliminary No growth after 48 hours. 05/13/20 17:40 Urine clean catch - Clean Catch Midstream Urine Culture - Final Escherichia coli Assessment and Plan (1) Acute pancreatitis: Status: Acute (2) Hypertriglyceridemia: Status: Acute (3) UTI (urinary tract infection): Status: Acute (4) Anemia: Status: Acute (5) Hyperlipidemia: Status: Acute (6) Hx of pancreatitis: Status: Acute (7) Chronic idiopathic constipation: Status: Acute Assessment and Plan: 45-year-old female patient presented to [place] ER with 2 days of nausea vomiting and abdominal pain workup revealed elevated WBC 18.2 bicarb 17 normal LFTs albumin 4.1,lipase 1595, and trig [address]659. abdom CT ?boggy with diffuse peripancreatic inflammatory changes or fluid, homogeneous enhancement to the pancreatic parenchyma. No pancreatic ductal dilatation. Overall the appearance is most consistent with acute interstitial pancreatitis similar to the 08/25/2019 study.?patient was admitted to ICU for management of her hypertriglyceridemia with an insulin drip. She was started on insulin 3u/hr, along with D5LR at 80cc/hr to keep her glucose level up, subsequently Triglycerides were down to the 4000 range this morning, insulin drip was discontinued and patient placed on Lantus insulin 30 units patient started on atorvastatin and fenofibrate. 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 less abdominal pain and nausea had loose stools this morning lipase trending down from 1595 to 1355,to 676 to 288 and triglyceride down from 6659 to 2171 to 1006, 428, Normal renal function, no acidosis, calcium low but stable Due to persistent tachycardia, nausea, low-grade fever will obtain CT Abdomen Continue IV fluid 100 mL per/h will DC IV fluids once by mouth intake improves Continue IV Dilaudid as needed,follow I's and Os ,Encourage Ensure Clear Encourage incentive spirometry, out of bed to chair. Hypokalemia will replace Tachycardia sinus, persistent likely due to anxiety pain, follow renal function, CBC manage pain. Elevated BP likely due to anxiety and fluid Acute renal failure likely due to dehydration and 3rd spacing with acute pancreatitis, diagnosed yesterday, resolved with IV hydration Urinary tract infection with urine culture growing E coli continue IV ceftriaxone day 3 Obesity will recommend low calorie diet and exercise DVT prophylaxis continue heparin
[2020-05-18 13:05] LABS: Glucose, Whole Blood 89 mg/dL (60-115)
[2020-05-18] MEDS: Potassium Chloride/H20 10 MEQ/100 ML PIGGYBACK 100 MEQ IV ×2 (13:28→14:30)
[2020-05-18 15:26] VITALS: BP 145/83; PULSE 112; RESP 15; TEMP 37.3; O2SAT 95
[2020-05-18 16:35] LABS: Glucose, Whole Blood 110 mg/dL (60-115)
[2020-05-18] MEDS: cefTRIAXone sodium 1 GM in 0.9 % Sodium Chloride 50 ML IV (16:44)
[2020-05-18 19:12] VITALS: BP 146/82; PULSE 107; RESP 14; TEMP 36.9; O2SAT 94
[2020-05-18 21:07] LABS: Glucose, Whole Blood 129 mg/dL (60-115)
[2020-05-19] VITALS (7 sets, daily range): BP systolic 117–156; BP diastolic 66–86; PULSE 93–107; RESP 13–18; TEMP 36.2–37.6; O2SAT 92–97; BMI 24.3
[2020-05-19] MEDS: Heparin Sodium,Porcine 5,000 UNIT/ML VIAL 5000 UNIT SUBCUT ×4 (00:08→21:37)
[2020-05-19] MEDS: ondansetron HCL 4 MG/2 ML VIAL IVPUSH (00:09)
[2020-05-19] MEDS: HYDROmorphone HCl 1 MG/ML SYRINGE IVPUSH ×3 (01:56→11:38)
[2020-05-19 07:06] LABS: Hematocrit 28.6 % (37-47); Hemoglobin 9.4 g/dl (12.0-16.0); Mean Corpuscular HGB Conc 32.9 g/dl (31.0-35.0); Mean Corpuscular Hemoglobin 24.5 pg (27.0-33.0); Mean Corpuscular Volume 74.7 fL (80-98); Mean Platelet Volume 9.8 fL (9.4-12.3); Platelet Count 273 X10*3/uL (160-400); Red Blood Count 3.83 X10*6/uL (4.20-5.50); Red Cell Distribution Width 16.1 % (11.0-16.0); White Blood Count 11.9 X10*3/uL (4.8-10.8)
[2020-05-19 07:37] LABS: Total Protein 5.7 g/dL (6.5-8.0)
[2020-05-19 07:38] LABS: Creatinine Clr Calc Pharmacy 86.5; Estimated Glomerular Filt Rate > 60; Glucose Random 104 mg/dL (60-115)
[2020-05-19 07:39] LABS: Anion Gap 10 (12-20); Blood Urea Nitrogen 8 mg/dL (9-16); Calcium 7.6 mg/dL (8.4-10.2); Carbon Dioxide 29 mmol/L (22-29); Chloride 99 mmol/L (96-108); Sodium 135 mmol/L (135-145)
[2020-05-19 07:44] LABS: Band Neutrophils Percent 9 % (3-5); Eosinophils Absolute Manual 0.2 X10*3/UL (0.0-0.8); Eosinophils Percent Manual 2 % (0-4); Lymphocytes Absolute Manual 1.5 X10*3/uL (0.6-4.8); Lymphocytes Percent Manual 13 % (20-40); Metamyelocytes Absolute 0.4 X10*3/uL; Metamyelocytes Percent 3 %; Monocytes Absolute Manual 0.7 X10*3/uL (0.0-1.2); Monocytes Percent Manual 6 % (2-11); Neutrophils Percent Manual 67 % (45-73); Platelet Estimate NORMAL (NORMAL); Platelet Morphology Comment NOTED
[2020-05-19 07:45] LABS: Giant Platelet PRESENT; Large Platelet PRESENT
[2020-05-19 07:46] LABS: Acanthocytes 1+; Microcytosis 1+; RBC Morphology NOTED; Tear Drop Cells 1+
[2020-05-19 07:47] LABS: Hypochromasia 1+; Ovalocytes 1+; Polychromasia 1+
[2020-05-19 07:51] LABS: Lipase 223 U/L (8-78)
[2020-05-19 08:06] LABS: Glucose, Whole Blood 121 mg/dL (60-115)
[2020-05-19] MEDS: Atorvastatin Calcium 80 MG TABLET PO (08:37)
[2020-05-19] MEDS: Fenofibrate,Micronized 134 MG CAPSULE PO (08:37)
--- NOTE | 2020-05-19 11:28 | HO.PM.IMPN ---
Subjective Subjective Date of Service: 05/19/20 Interval History: Patient feeling better this a.m. less abdominal pain and nausea, still unable to eat regular food tolerating clear Ensure, requiring IV Dilaudid every 4 hours. ROS [employer] no headache no dizziness General no fevers no chills GI less nausea and abdominal pain moving bowels more formed Physical Exam Vital Signs: Vital Signs: Last Vital Signs Temp 97.9 F 05/19/20 08:00 Pulse 102 H 05/19/20 08:00 Resp 17 05/19/20 08:00 BP 117/79 05/19/20 08:00 Pulse Ox 92 05/19/20 08:00 Body Mass Index 24.3 General no distress, resting comfortably Neck is supple no JVD. CVS regular rate rhythm, Respiratory lungs clear to auscultation, diminished breath sound, no respiratory distress, no wheeze, no rhonchi. Gastrointestinal abdomen obese nontender , bowel sounds audible, soft, no guarding , no rigidity, no worsening distension. Extremities no clubbing cyanosis or edema. Neuro nonfocal . Skin no rash Objective Data Current Medications Generic Name Dose Route Start Last Admin Trade Name Freq PRN Reason Stop Dose Admin Atorvastatin Calcium 80 mg 05/14/20 11:00 05/19/20 08:37 Atorvastatin Calcium 80 Mg Tablet PO 80 mg DAILY [facility] Administration Docusate Sodium 100 mg 05/15/20 09:00 05/19/20 08:38 Docusate Sodium 100 Mg Capsule PO Not Given DAILY IVAN Fenofibrate 134 mg 05/14/20 11:00 05/19/20 08:37 Fenofibrate,Micronized 134 Mg Capsule PO 134 mg DAILY IVAN Administration Heparin Sodium (Porcine) 5,000 unit 05/13/20 22:45 05/19/20 06:24 Heparin Sodium,Porcine 5,000 Unit/Ml Vial SUBCUT 5,000 unit Q8H IVAN Administration Hydromorphone HCl 1 mg 05/15/20 10:04 05/19/20 06:30 Hydromorphone Hcl 1 Mg/Ml Syringe IVPUSH 1 mg Q4H PRN Administration abdominal pain Ceftriaxone Sodium 1 gm/ 50 mls @ 100 mls/hr 05/15/20 17:00 05/18/20 17:19 Sodium Chloride IV Infused Q24H [facility] Infusion Insulin Human Lispro 0 unit 05/15/20 11:30 05/19/20 08:37 Insulin Lispro 100 Unit/Ml 3 Ml Vial SUBCUT Not Given QIDACHS [facility] Protocol Ondansetron HCl 4 mg 05/15/20 08:58 05/19/20 00:09 Ondansetron Hcl 4 Mg/2 Ml Vial IVPUSH 4 mg Q6H PRN Administration Nausea Polyethylene Glycol 17 gm 05/15/20 09:00 05/19/20 08:38 Polyethylene Glycol 3350 17 Gm Powd.Pack PO Not Given DAILY [facility] Senna 8.6 mg 05/14/20 21:00 05/18/20 22:46 Sennosides 8.6 Mg Tablet PO Not Given BEDTIME IVAN Trazodone HCl 100 mg 05/14/20 18:43 05/15/20 20:40 Trazodone Hcl 100 Mg Tablet PO 100 mg BEDTIME PRN Administration insomnia Labs CBC & Chem 7: 05/19/20 06:12 05/19/20 06:12 Microbiology Microbiology Results: Microbiology 05/13/20 20:20 Blood - Venous Blood Culture - Final No growth after 5 days. 05/13/20 20:20 Blood - Venous Blood Culture - Final No growth after 5 days. 05/13/20 17:40 Urine clean catch - Clean Catch Midstream Urine Culture - Final Escherichia coli Assessment and Plan (1) Acute pancreatitis: Status: Acute (2) Hypertriglyceridemia: Status: Acute (3) UTI (urinary tract infection): Status: Acute (4) Anemia: Status: Acute (5) Hyperlipidemia: Status: Acute (6) Hx of pancreatitis: Status: Acute Assessment and Plan: 45-year-old female patient presented to [place] ER with 2 days of nausea vomiting and abdominal pain workup revealed elevated WBC 18.2 bicarb 17 normal LFTs albumin 4.1,lipase 1595, and trig [address]. abdom CT ?boggy with diffuse peripancreatic inflammatory changes or fluid, homogeneous enhancement to the pancreatic parenchyma. No pancreatic ductal dilatation. Overall the appearance is most consistent with acute interstitial pancreatitis similar to the 08/25/2019 study.?patient was admitted to ICU for management of her hypertriglyceridemia with an insulin drip. She was started on insulin 3u/hr, along with D5LR at 80cc/hr to keep her glucose level up, subsequently Triglycerides were down to the 4000 range this morning, insulin drip was discontinued and patient placed on Lantus insulin 30 units patient started on atorvastatin and fenofibrate. 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 abdominal pain and nausea improved no further loose bowel movement, lipase trending down from 1595 to 1355,to 676 to 288 to 2232 and triglyceride down from 6659 to 2171 to 1006, 428, Normal renal function, no acidosis, calcium remains low with low albumin Repeat CT Abdomen/pelvis showed interval worsening of acute interstitial pancreatitis with no evidence of pancreatic necrosis or fluid collection. Will discontinue IV fluid , encourage Ensure Clear/out of bed to chair, incentive spirometry, continue IV Dilaudid for pain , follow labs Hypertriglyceridemia familial will need strict due diet /fibrate and Lipitor Hypokalemia potassium remains low at 3 will replace and follow BMP Tachycardia sinus, improving likely due to anxiety and pain Acute renal failure likely due to dehydration and 3rd spacing with acute pancreatitis, resolved with IV hydration Urinary tract infection with urine culture growing E coli continue IV ceftriaxone day 4 switched to by mouth once able to tolerate Obesity will recommend low calorie diet and exercise DVT prophylaxis continue heparin
[2020-05-19 12:11] LABS: Glucose, Whole Blood 114 mg/dL (60-115)
[2020-05-19] MEDS: Potassium Chloride ER 20 MEQ TAB.ER.PRT 40 MEQ PO (12:47)
[2020-05-19] MEDS: HYDROmorphone HCl 2 MG TABLET 1 MG PO ×2 (15:59→21:38)
[2020-05-19] MEDS: Potassium Chloride ER 20 MEQ TAB.ER.PRT PO (16:00)
[2020-05-19 16:31] LABS: Glucose, Whole Blood 137 mg/dL (60-115)
--- NOTE | 2020-05-19 17:13 | PC.NURSE ---
patient has no iv access,Ceftriaxone scheduled,Dr. Paz made aware
[2020-05-19 19:53] LABS: Glucose, Whole Blood 140 mg/dL (60-115)
[2020-05-19] MEDS: Sennosides 8.6 MG TABLET PO (21:38)
[2020-05-20 04:00] VITALS: BP 143/82; PULSE 81; RESP 16; TEMP 36.6; O2SAT 97
[2020-05-20] MEDS: Heparin Sodium,Porcine 5,000 UNIT/ML VIAL 5000 UNIT SUBCUT ×3 (06:18→21:45)
[2020-05-20 06:50] LABS: Hematocrit 28.6 % (37-47); Hemoglobin 9.5 g/dl (12.0-16.0); Mean Corpuscular HGB Conc 33.2 g/dl (31.0-35.0); Mean Corpuscular Hemoglobin 24.6 pg (27.0-33.0); Mean Corpuscular Volume 74.1 fL (80-98); Mean Platelet Volume 9.4 fL (9.4-12.3); NRBC Pct Auto 0.2 /100WBC (0.0-0.2); Platelet Count 289 X10*3/uL (160-400); Red Blood Count 3.86 X10*6/uL (4.20-5.50); Red Cell Distribution Width 15.7 % (11.0-16.0); White Blood Count 12.1 X10*3/uL (4.8-10.8)
[2020-05-20 07:33] VITALS: BP 134/82; PULSE 80; RESP 18; TEMP 36.6; O2SAT 98
[2020-05-20 07:34] LABS: Band Neutrophils Percent 4 % (3-5); Eosinophils Absolute Manual 0.2 X10*3/UL (0.0-0.8); Eosinophils Percent Manual 2 % (0-4); Lymphocytes Absolute Manual 1.6 X10*3/uL (0.6-4.8); Lymphocytes Percent Manual 13 % (20-40); Metamyelocytes Percent 8 %; Monocytes Absolute Manual 0.5 X10*3/uL (0.0-1.2); Monocytes Percent Manual 4 % (2-11); Myelocytes Absolute 0.1 X10*/uL; Myelocytes Percent 1 %; Neutrophils Absolute Manual 8.7 X10*3/uL (2.2-7.9); Neutrophils Percent Manual 68 % (45-73)
[2020-05-20 07:35] LABS: Hypochromasia 1+; Platelet Estimate NORMAL (NORMAL); Platelet Morphology Comment NORMAL; RBC Morphology NOTED
[2020-05-20 07:42] LABS: Anion Gap 12 (12-20); Blood Urea Nitrogen 9 mg/dL (9-16); Calcium 8.1 mg/dL (8.4-10.2); Carbon Dioxide 29 mmol/L (22-29); Chloride 100 mmol/L (96-108); Creatinine Clr Calc Pharmacy 75.9; Estimated Glomerular Filt Rate > 60; Glucose Random 135 mg/dL (60-115); Potassium 3.1 mmol/L (3.3-5.1); Sodium 138 mmol/L (135-145)
[2020-05-20 07:48] LABS: Glucose, Whole Blood 113 mg/dL (60-115)
[2020-05-20] MEDS: Atorvastatin Calcium 80 MG TABLET PO (09:25)
[2020-05-20] MEDS: Fenofibrate,Micronized 134 MG CAPSULE PO (09:25)
[2020-05-20 11:30] VITALS: BP 153/80; PULSE 87; RESP 18; TEMP 36.6; O2SAT 97
[2020-05-20] MEDS: Potassium Chloride ER 20 MEQ TAB.ER.PRT 40 MEQ PO (11:43)
--- NOTE | 2020-05-20 11:53 | HO.PM.IMPN ---
Subjective Subjective Date of Service: 05/20/20 Interval History: Patient complaining of diarrhea and bowel incontinence, abdominal pain is better, still unable to tolerate solids, no other acute issues overnight with no fever , no chills. 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 CVS regular rate rhythm, Respiratory lungs clear to auscultation, diminished breath sound, no respiratory distress, no wheeze, no rhonchi. Gastrointestinal abdomen obese nontender , bowel sounds audible, soft, no guarding , no rigidity, no worsening distension. Extremities no clubbing cyanosis or edema. Neuro nonfocal . Skin no rash Objective Data Current Medications Generic Name Dose Route Start Last Admin Trade Name Freq PRN Reason Stop Dose Admin Atorvastatin Calcium 80 mg 05/14/20 11:00 05/20/20 09:25 Atorvastatin Calcium 80 Mg Tablet PO 80 mg DAILY IVAN Administration Fenofibrate 134 mg 05/14/20 11:00 05/20/20 09:25 Fenofibrate,Micronized 134 Mg Capsule PO 134 mg DAILY IVAN Administration Heparin Sodium (Porcine) 5,000 unit 05/13/20 22:45 05/20/20 06:18 Heparin Sodium,Porcine 5,000 Unit/Ml Vial SUBCUT 5,000 unit Q8H [facility] Administration Hydromorphone HCl 1 mg 05/19/20 14:47 05/19/20 21:38 Hydromorphone Hcl 2 Mg Tablet PO 1 mg Q4H PRN Administration ABDOMINAL PAIN Ceftriaxone Sodium 1 gm/ 50 mls @ 100 mls/hr 05/15/20 17:00 05/19/20 17:12 Sodium Chloride IV Not Given Q24H [facility] Insulin Human Lispro 0 unit 05/15/20 11:30 05/20/20 11:44 Insulin Lispro 100 Unit/Ml 3 Ml Vial SUBCUT Not Given QIDACHS [facility] Protocol Ondansetron HCl 4 mg 05/15/20 08:58 05/19/20 00:09 Ondansetron Hcl 4 Mg/2 Ml Vial IVPUSH 4 mg Q6H PRN Administration Nausea Trazodone HCl 100 mg 05/14/20 18:43 05/15/20 20:40 Trazodone Hcl 100 Mg Tablet PO 100 mg BEDTIME PRN Administration insomnia Labs CBC & Chem 7: 05/20/20 06:32 05/20/20 06:32 Microbiology Microbiology Results: Microbiology 05/13/20 20:20 Blood - Venous Blood Culture - Final No growth after 5 days. 05/13/20 20:20 Blood - Venous Blood Culture - Final No growth after 5 days. 05/13/20 17:40 Urine clean catch - Clean Catch Midstream Urine Culture - Final Escherichia coli Assessment and Plan (1) Acute pancreatitis: Status: Acute (2) Hypertriglyceridemia: Status: Acute (3) UTI (urinary tract infection): Status: Acute (4) Anemia: Status: Acute (5) Hyperlipidemia: Status: Acute (6) Hx of pancreatitis: Status: Acute (7) Chronic idiopathic constipation: Status: Acute Assessment and Plan: 45-year-old female patient presented to [place] ER with 2 days of nausea vomiting and abdominal pain workup revealed elevated WBC 18.2 bicarb 17 normal LFTs albumin 4.1,lipase 1595, and trig 6659. abdom CT ?boggy with diffuse peripancreatic inflammatory changes or fluid, homogeneous enhancement to the pancreatic parenchyma. No pancreatic ductal dilatation. Overall the appearance is most consistent with acute interstitial pancreatitis similar to the 08/25/2019 study.?patient was admitted to ICU for management of her hypertriglyceridemia with an insulin drip. She was started on insulin 3u/hr, along with D5LR at 80cc/hr to keep her glucose level up, subsequently Triglycerides were down to the 4000 range this morning, insulin drip was discontinued and patient placed on Lantus insulin 30 units patient started on atorvastatin and fenofibrate. 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 abdominal pain and nausea improved , complaining of loose stools, able to tolerate liquid lipase trending down from 1595 to 1355,to 676 to 288 to 223 and triglyceride down from 6659 to 2171 to 1006, 428, Normal renal function, no acidosis, calcium remains low but normal for corrected albumin Repeat CT Abdomen/pelvis showed interval worsening of acute interstitial pancreatitis with no evidence of pancreatic necrosis or fluid collection. Patient has no IV access, recommend fluids, low-fat diet,encourage Ensure Clear/out of bed to chair, incentive spirometry, po Dilaudid for pain , follow labs Nutrition consult for hypertriglyceridemia Hypertriglyceridemia familial will need strict due diet /fibrate and Lipitor Hypokalemia likely due to diarrhea, IV fluid and poor by mouth intake, potassium remains low at 3.1 will replace and follow BMP Tachycardia sinus, improving likely due to anxiety and pain Acute renal failure likely due to dehydration and 3rd spacing with acute pancreatitis, resolved with IV hydration Urinary tract infection with urine culture growing E coli s/p IV ceftriaxone day 5 switched to by mouth for 2 more days Obesity will recommend low calorie diet and exercise DVT prophylaxis continue heparin
[2020-05-20 12:16] LABS: Glucose, Whole Blood 136 mg/dL (60-115)
--- NOTE | 2020-05-20 15:08 | MHC.CLN ---
RE: CONSULT AND F/U PO INTAKE SLOWLY IMPROVING REMAINS VARIABLE DIET RX: LOW FAT-APPROPRIATE ENSURE CLEAR IN PLACE R/T POOR PO SEE TEACHING RECORD FOR DIET EDUCATION 1500 CALORIES PER DAY TO PROMOTE SLOW WT LOSS FOLLOWING
[2020-05-20 15:25] VITALS: BP 127/70; PULSE 79; RESP 18; TEMP 36.8; O2SAT 97
[2020-05-20 16:32] LABS: CDIFF Ag Negative (Negative); CDIFF Internal ctrl Dots and bkg OK (V); CDiff Toxin Negative (Negative)
[2020-05-20 16:41] LABS: Glucose, Whole Blood 97 mg/dL (60-115)
[2020-05-20 19:11] VITALS: BP 148/80; PULSE 95; RESP 18; TEMP 37.3; O2SAT 97
[2020-05-20 21:02] LABS: Glucose, Whole Blood 116 mg/dL (60-115)
[2020-05-20] MEDS: HYDROmorphone HCl 2 MG TABLET 1 MG PO (21:43)
[2020-05-21] VITALS: BP 152/71; PULSE 68; RESP 18; TEMP 36.8; O2SAT 94
[2020-05-21 03:32] VITALS: BP 147/83; PULSE 78; RESP 18; TEMP 36.9; O2SAT 93
[2020-05-21 06:00] VITALS: BMI 38.5
[2020-05-21 06:05] LABS: Hematocrit 28.7 % (37-47); Hemoglobin 9.3 g/dl (12.0-16.0); Mean Corpuscular HGB Conc 32.4 g/dl (31.0-35.0); Mean Corpuscular Hemoglobin 24.2 pg (27.0-33.0); Mean Corpuscular Volume 74.7 fL (80-98); Mean Platelet Volume 9.7 fL (9.4-12.3); NRBC Pct Auto 0.2 /100WBC (0.0-0.2); Platelet Count 278 X10*3/uL (160-400); Red Blood Count 3.84 X10*6/uL (4.20-5.50); Red Cell Distribution Width 15.6 % (11.0-16.0); White Blood Count 11.8 X10*3/uL (4.8-10.8)
[2020-05-21] MEDS: Heparin Sodium,Porcine 5,000 UNIT/ML VIAL 5000 UNIT SUBCUT (06:09)
[2020-05-21 06:20] LABS: Anion Gap 12 (12-20); Blood Urea Nitrogen 12 mg/dL (9-16); Calcium 8.2 mg/dL (8.4-10.2); Carbon Dioxide 27 mmol/L (22-29); Chloride 103 mmol/L (96-108); Creatinine Clr Calc Pharmacy 94.4; Estimated Glomerular Filt Rate > 60; Glucose Random 148 mg/dL (60-115); Potassium 3.2 mmol/L (3.3-5.1); Sodium 139 mmol/L (135-145)
[2020-05-21 06:34] LABS: Atypical Lymph Absolute Manual 0.1 x10*3/uL; Atypical Lymphs Percent Manual 1 % (0-6); Band Neutrophils Percent 7 % (3-5); Eosinophils Absolute Manual 0.6 X10*3/UL (0.0-0.8); Eosinophils Percent Manual 5 % (0-4); Lymphocytes Absolute Manual 0.8 X10*3/uL (0.6-4.8); Lymphocytes Percent Manual 7 % (20-40); Metamyelocytes Absolute 0.2 X10*3/uL; Metamyelocytes Percent 2 %; Monocytes Absolute Manual 0.1 X10*3/uL (0.0-1.2); Monocytes Percent Manual 1 % (2-11); Myelocytes Absolute 0.4 X10*/uL; Myelocytes Percent 3 %; Neutrophils Absolute Manual 9.6 X10*3/uL (2.2-7.9); Neutrophils Percent Manual 74 % (45-73)
[2020-05-21 06:36] LABS: Microcytosis 2+; Platelet Estimate NORMAL (NORMAL); Platelet Morphology Comment NORMAL; Polychromasia 1+; RBC Morphology NOTED
[2020-05-21 07:27] VITALS: BP 126/77; PULSE 78; RESP 18; TEMP 37.1; O2SAT 96
[2020-05-21 07:46] LABS: Glucose, Whole Blood 137 mg/dL (60-115)
[2020-05-21] MEDS: Fenofibrate,Micronized 134 MG CAPSULE PO (08:29)
[2020-05-21] MEDS: Potassium Chloride ER 20 MEQ TAB.ER.PRT 40 MEQ PO (08:29)
[2020-05-21] MEDS: Atorvastatin Calcium 80 MG TABLET PO (08:29)
--- NOTE | 2020-05-21 11:01 | PM.DS ---
DS: Providers Provider Date of Service: 05/22/20 Date of admission: 05/13/20 22:36 Primary care physician: Irasema Bruce MD Consults: 05/15/20 11:06 Consult to Gastroenterology Routine Consulting Provider: Gareth Bowman Reason for consultation: pancreatitis with triglyceridemia Has provider been notified: No 05/15/20 16:13 Consult to Nephrology Routine Consulting Provider: Thomas Souza Reason for consultation: miguel DS: Diagnosis Discharge Diagnosis (1) Acute pancreatitis: Status: Acute (2) Hypertriglyceridemia: Status: Acute (3) UTI (urinary tract infection): Status: Acute (4) Anemia: Status: Acute (5) Hyperlipidemia: Status: Acute (6) Hx of pancreatitis: Status: Acute (7) Chronic idiopathic constipation: Status: Acute DS: Medications Discharge Medications Home Medications: Home Medications Medication Instructions Recorded Confirmed docusate sodium 100 mg capsule 100 mg PO DAILY 02/05/20 05/14/20 Previous Rx's Medication Instructions Recorded sennosides 8.6 mg tablet 8.6 mg PO BEDTIME 90 Days #90 tab 03/27/20 trazodone 100 mg tablet 100 mg PO BEDTIME PRN 90 Days #90 03/27/20 tab atorvastatin 80 mg PO DAILY 90 Days #90 tab 05/21/20 fenofibrate micronized 134 mg PO DAILY #30 cap 05/21/20 DS: Summary Hospital Course Hospital Course: HPI 45-year-old female with a past medical history hypertriglyceridemia induced pancreatitis last August. Today, she presented to the ED reporting 2 days of nausea, vomiting and abdominal pain. She denies any history of gallstones or alcohol abuse and says she feels like she did when she had pancreatitis last year. She denies any fevers, chills, dysuria, hematuria, flank pain, shortness of breath, cough or chest pain. During my exam, patient explained her father had hypertriglyceridemia and many episodes of pancreatitis. She states she try to control her triglycerides with weight loss, a low fat diet and exercise but had no luck. Pt was visibly uncomfortable and abdomen was diffusely tender but physical exam was otherwise unremarkable. Labs are notable for WBC 18.2, could be secondary to vomiting, NA 132, bicarb 17, gap 21, lipase 1595, initial lactic acid was 2.8 and the 2hr follow-up was 2.0, UA positive for infection. Patient to be transferred to the ICU for an insulin drip to manage hypertriglyceridemia induced pancreatitis. 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 Ceftin patient was treated for total 7 days. patient was tolerating regular low-fat diet, patient was stable discharged home on Lipitor and fenofibrate, Time Spent with Patient Time attestation: Total time spent providing and/or coordinating discharge services: Discharge coordination time: Greater than 30 minutes Physical Exam Vital Signs: Vital Signs: Last Vital Signs Temp 98.7 F 05/21/20 07:27 Pulse 78 05/21/20 07:27 Resp 18 05/21/20 07:27 BP 126/77 05/21/20 07:27 Pulse Ox 96 05/21/20 07:27 Body Mass Index 38.5 DS: Data Data Completed and Pending Labs on day of discharge: Laboratory Results - last 24 hr 05/20/20 05/20/20 05/20/20 11:34 14:55 16:24 WBC RBC Hgb Hct MCV MCH MCHC RDW Plt Count MPV Immature Gran % (Auto) Neut % (Auto) Lymph % (Auto) [place] % (Auto) Eos % (Auto) Baso % (Auto) Lymph # (Auto) [place] # (Auto) Eos # (Auto) Baso # (Auto) Abs Immat Gran (auto) Absolute Neuts (auto) Absolute Nucleated RBC Nucleated RBC % (auto) Neutrophils % (Manual) Band Neutrophils % Lymphocytes % (Manual) Atypical Lymphs % (Man) Monocytes % (Manual) Eosinophils % (Manual) Metamyelocytes % Myelocytes % Abs Neuts (Manual) Lymphocytes # (Manual) Atyp Lymphs # (Manual) Monocytes # (Manual) Eosinophils # (Manual) Metamyelocytes # Myelocytes # Platelet Estimate Plt Morphology Comment RBC Morphology Polychromasia Microcytosis Sodium Potassium Chloride Carbon Dioxide Anion Gap BUN Creatinine Estim Creat Clear Calc Estimated GFR POC Glucose 136 H 97 Random Glucose Calcium C. difficile Toxin A&B Negative C. difficile Antigen Negative C. difficile Interpret SEE NOTE 05/20/20 05/21/20 05/21/20 20:44 05:43 05:43 WBC 11.8 H RBC 3.84 L Hgb 9.3 L Hct 28.7 L MCV 74.7 L MCH 24.2 L MCHC 32.4 RDW 15.6 Plt Count 278 MPV 9.7 Immature Gran % (Auto) Cancelled Neut % (Auto) Cancelled Lymph % (Auto) Cancelled [place] % (Auto) Cancelled Eos % (Auto) Cancelled Baso % (Auto) Cancelled Lymph # (Auto) Cancelled [place] # (Auto) Cancelled Eos # (Auto) Cancelled Baso # (Auto) Cancelled Abs Immat Gran (auto) Cancelled Absolute Neuts (auto) Cancelled Absolute Nucleated RBC 0.020 H Nucleated RBC % (auto) 0.2 Neutrophils % (Manual) 74 H Band Neutrophils % 7 H Lymphocytes % (Manual) 7 L Atypical Lymphs % (Man) 1 Monocytes % (Manual) 1 L Eosinophils % (Manual) 5 H Metamyelocytes % 2 Myelocytes % 3 Abs Neuts (Manual) 9.6 H Lymphocytes # (Manual) 0.8 Atyp Lymphs # (Manual) 0.1 Monocytes # (Manual) 0.1 Eosinophils # (Manual) 0.6 Metamyelocytes # 0.2 Myelocytes # 0.4 Platelet Estimate NORMAL Plt Morphology Comment NORMAL RBC Morphology NOTED Polychromasia 1+ Microcytosis 2+ Sodium 139 Potassium 3.2 L Chloride 103 Carbon Dioxide 27 Anion Gap 12 BUN 12 Creatinine 0.82 Estim Creat Clear Calc 94.4 Estimated GFR > 60 POC Glucose 116 H Random Glucose 148 H Calcium 8.2 L C. difficile Toxin A&B C. difficile Antigen C. difficile Interpret 05/21/20 07:27 WBC RBC Hgb Hct MCV MCH MCHC RDW Plt Count MPV Immature Gran % (Auto) Neut % (Auto) Lymph % (Auto) [place] % (Auto) Eos % (Auto) Baso % (Auto) Lymph # (Auto) [place] # (Auto) Eos # (Auto) Baso # (Auto) Abs Immat Gran (auto) Absolute Neuts (auto) Absolute Nucleated RBC Nucleated RBC % (auto) Neutrophils % (Manual) Band Neutrophils % Lymphocytes % (Manual) Atypical Lymphs % (Man) Monocytes % (Manual) Eosinophils % (Manual) Metamyelocytes % Myelocytes % Abs Neuts (Manual) Lymphocytes # (Manual) Atyp Lymphs # (Manual) Monocytes # (Manual) Eosinophils # (Manual) Metamyelocytes # Myelocytes # Platelet Estimate Plt Morphology Comment RBC Morphology Polychromasia Microcytosis Sodium Potassium Chloride Carbon Dioxide Anion Gap BUN Creatinine Estim Creat Clear Calc Estimated GFR POC Glucose 137 H Random Glucose Calcium C. difficile Toxin A&B C. difficile Antigen C. difficile Interpret Discharge Plan Discharge Anticipated Discharge Date/Time: 05/21/20 10:55 Patient Disposition: Home, Self-Care Referrals: Irasema Rodas MD [Primary Care Provider] - Discharge Medications: New fenofibrate micronized 134 mg Capsule 134 mg PO DAILY Qty: 30 RF: 2 Continued sennosides [Senna Laxative] 8.6 mg tablet 8.6 mg PO BEDTIME 90 Days Qty: 90 RF: 3 trazodone 100 mg tablet 100 mg PO BEDTIME PRN (Reason: insomnia) 90 Days Qty: 90 RF: 3 atorvastatin 80 mg tablet 80 mg PO DAILY 90 Days Qty: 90 RF: 3 docusate sodium 100 mg capsule 100 mg PO DAILY RF: 0 Discontinued polyethylene glycol 3350 [Miralax] 17 gram/dose powder 17 g PO DAILY RF: 0 Discharge Orders: Discharge Order (Routine); Ordered 05/21/20 Ordered By: Luis Abraham Diet: low fat, low cholesterol Activity on Discharge: As tolerated Stand Alone Forms: Patient Portal Discharge page Care Plan Goals: treat hypertriglyceridemia Health Concerns: hypertriglyceridemia Plan of Treatment: statain , diet modification Discharge Date/Time: 05/21/20 13:50
[2020-05-21 11:28] VITALS: BP 140/85; PULSE 79; RESP 18; TEMP 36.6; O2SAT 97
[2020-05-21 11:39] LABS: Glucose, Whole Blood 125 mg/dL (60-115)
--- NOTE | 2020-05-21 14:41 | MHC.CM.PN ---
PT DISCHARGED HOME SELF-CARE, FAMILY FOR TRANSPORT.
== END 2020-05-21 13:50 | disposition home or self-care (01) | DRG 439 ==
LOC: HO.ED 21:24 → HO.EDOVER 23:53 → HO.ICU 05-14 00:29 → HO.S3 05-14 18:05
PROVIDERS: Hospitalist; Internal Medicine Nephrology; Physician Assistant; Admitting Provider Anesthesiology; Emergency Provider Internal Medicine; PCP Internal Medicine; Visit Provider Internal Medicine
DX: K85.90 Acute pancreatitis without necrosis or infection, unspecified (principal); N39.0 Urinary tract infection, site not specified; N17.9 Acute kidney failure, unspecified; D64.9 Anemia, unspecified; N99.0 Postprocedural (acute) (chronic) kidney failure; E78.1 Pure hyperglyceridemia; B96.20 Unspecified Escherichia coli [E. coli] as the cause of diseases classified elsewhere; E66.9 Obesity, unspecified; Z68.38 Body mass index [BMI] 38.0-38.9, adult; K59.04 Chronic idiopathic constipation; Z20.822 Contact with and (suspected) exposure to COVID-19; Z79.899 Other long term (current) drug therapy
CPT/HCPCS: 36415; 71045; 74177; 80048; 80053; 80076; 81001; 81003; 82040; 82947; 83605; 83690; 83735; 84100; 84155; 84156; 84300; 84478; 84484; 84702; 85007; 85025; 85027; 85610; 85730; 87040; 87086; 87088; 87186; 87324; 87449; 87635; 93005; 96361; 96365; 96375; 96376; 99285; C1758; J0610; J0696; J1170; J2270; J2405; J2765; Q9967

== ENCOUNTER → 2020-06-28 09:49 | Outpatient (BNVA) | payer MEDICAID, OTHER, SELFPAY | PROVIDERS: PCP Internal Medicine; Visit Provider Internal Medicine Gastroenterology ==

== ENCOUNTER 2020-11-01 10:55 | Inpatient (IN) | payer OTHER, SELFPAY ==
[2020-11-01] VITALS (9 sets, daily range): BP systolic 118–159; BP diastolic 77–92; PULSE 88–106; RESP 16–20; TEMP 36.7–37.4; O2SAT 90–99; BMI 79.0
--- NOTE | ~2020-11-01 | US_ITS ---
EXAMINATION: US RENAL, RIGHT CLINICAL INFORMATION: Right flank pain. Assess right kidney. COMPARISON: CT abdomen and pelvis with contrast 11/01/2020. TECHNIQUE: Real-time imaging of the right kidney as per order. FINDINGS: RIGHT KIDNEY: 11.7 x 5.4 x 6.0 cm (SAG x AP x TRV). The kidney is normal in size, contour and echogenicity. Renal cortical thickness is normal. There is no hydronephrosis or caliectasis. There is a small subcentimeter cyst mid to lower pole consistent with the recent CT. No visible calculi. US/US renal RT IMPRESSION: Unremarkable right renal ultrasound.
--- NOTE | ~2020-11-01 | CT_ITS ---
EXAMINATION: CT ABDOMEN AND PELVIS WITH CONTRAST CLINICAL INFORMATION: Abdominal pain radiating to right flank. History of pancreatitis. COMPARISON: May 18, 2020 and May 13, 2020 TECHNIQUE: Multidetector volumetric images were obtained from the superior aspect of the liver through the pubic symphysis following administration 85 mL of Omnipaque 350 intravenous contrast. Sagittal and coronal reformatted images were obtained on the technologist's workstation. Oral contrast: No This CT examination was performed using dose optimization techniques as appropriate, variously including the following: *Automated exposure control *Adjustment of mA and/or kV according to patient size (this includes techniques or standardized protocols for targeted exams where dose is matched to indication/reason for exam; i.e. extremities or head) *Use of iterative reconstruction technique DLP: 753 mGy-cm FINDINGS: LUNG BASES: There is bibasilar groundglass opacity present consistent with dependent atelectasis. No pleural or pericardial effusion is seen. Heart normal size. LIVER, GALLBLADDER, AND BILIARY TREE: There is fatty infiltration of the liver. No focal mass or intrahepatic bile duct dilatation is seen. There is hepatomegaly present with vertical span of 23 cm. Status post cholecystectomy. PANCREAS: The pancreas has irregular margin and peripancreatic stranding within the fat consistent with acute pancreatitis. No drainable fluid collection is appreciated. There is no evidence of devitalization of pancreatic tissue with normal contrast enhancement present. There is a small amount of fluid present. No pancreatic ductal dilatation is seen. SPLEEN: There is splenomegaly with vertical span of 14 cm. ADRENAL GLANDS: Unremarkable. KIDNEYS AND URETERS: The kidneys are normal in size, shape, and attenuation. No hydronephrosis, hydroureter, or calculi seen. No perinephric stranding. BLADDER: Unremarkable. GASTROINTESTINAL TRACT: No dilated loops of large or small bowel. No free air is seen. No significant free fluid is seen. No evidence of colitis. The appendix appears unremarkable. ABDOMINAL WALL: No significant hernia is appreciated. Small fat-containing umbilical hernia. LYMPH NODES: No lymphadenopathy VASCULAR: Portal vein patent. Visceral vessels patent. No abdominal aortic aneurysm. PELVIC VISCERA: Unremarkable. OSSEOUS STRUCTURES: No suspicious destructive bony lesions identified. CT/CT abdomen pelvis w con IMPRESSION: Acute pancreatitis without drainable fluid collection. No evidence of devitalized parenchyma. Appearance does not have as much free fluid as the pancreatitis at time of May 18, 2020.. Hepatosplenomegaly. Fatty infiltration of the liver.
[2020-11-01] MEDS: ondansetron HCL 4 MG/2 ML VIAL IVPUSH (11:58)
[2020-11-01] MEDS: 0.9 % Sodium Chloride 500 ML 999 ML IV (11:58)
[2020-11-01 11:59] LABS: Basophils Absolute Auto 0.1 X10*3/uL (0.0-0.2); Basophils Percent Auto 0.4 % (0-2); Eosinophils Absolute Auto 0.2 X10*3/uL (0.0-0.4); Eosinophils Percent Auto 1.1 % (0-4); Imm Gran Abs Auto 0.09 X10*3/uL (0.00-0.03); Imm Gran Pct Auto 0.6 % (0.0-0.4); Lymphocytes Absolute Auto 2.8 X10*3/uL (1.2-4.9); Lymphocytes Percent Auto 20.1 % (20-40); MANUAL DIFF FLAG SCAN; Mean Corpuscular Volume 73.3 fL (80-98); Mean Platelet Volume 9.8 fL (9.4-12.3); Monocytes Absolute Auto 0.5 X10*3/uL (0.1-1.2); Monocytes Percent Auto 3.8 % (2-11); Neutrophils Absolute Auto 10.4 X10*3/uL (2.0-8.3); Platelet Count 226 X10*3/uL (160-400); Red Cell Distribution Width 15.4 % (11.0-16.0); SCAN SMEAR FLAG 1; White Blood Count 14.1 X10*3/uL (4.8-10.8)
[2020-11-01] MEDS: Morphine Sulfate 4 MG/ML CARTRIDGE IVPUSH ×2 (11:59→13:50)
[2020-11-01 12:17] LABS: COVID-19 Test Negative (Negative)
[2020-11-01 12:18] LABS: Hemoglobin 11.1 g/dl (12.0-16.0); Mean Corpuscular Hemoglobin 24.7 pg (27.0-33.0)
[2020-11-01 12:19] LABS: Mean Corpuscular HGB Conc 33.6 g/dl (31.0-35.0)
[2020-11-01 12:27] LABS: SLIDE REVIEW VERIFIED
[2020-11-01 12:59] LABS: Alanine Aminotransferase 13 U/L (0-31); Albumin Level 3.9 g/dL (3.5-5.0); Alkaline Phosphatase 76 U/L (39-117); Anion Gap 15 (12-20); Aspartate Amino Transferase 17 U/L (5-31); Bilirubin Total 0.4 mg/dL (0.0-1.0); Blood Urea Nitrogen 14 mg/dL (9-16); Calcium 8.8 mg/dL (8.4-10.2); Carbon Dioxide 22 mmol/L (22-29); Chloride 104 mmol/L (96-108); Creatinine Clr Calc Pharmacy 148.1; Estimated Glomerular Filt Rate > 60; Glucose Random 91 mg/dL (60-115); Lipase 780 U/L (8-78); Sodium 137 mmol/L (135-145); Total Protein 7.5 g/dL (6.5-8.0)
--- NOTE | 2020-11-01 13:17 | ED_ITS ---
HPI - Abdominal Pain General Chief Complaint: Abdominal Pain Stated Complaint: abd pain Time Seen by Provider: 11/01/20 11:20 Source: patient Mode of arrival: ambulatory Limitations: no limitations History of Present Illness HPI narrative: 45-year-old female past medical history of pancreatitis presents with abdominal pain radiating to her right back that started yesterday. The pain is 10/10, and is intermittent. Pain radiates to her right back. No history of kidney stones, no blood in her urine. The pain comes it is stabbing and burning. She has been nauseous. No vomiting. This pain feels like when she has had pancreatitis in the past. She has pain all over her abdomen. No fevers. History of gallbladder surgery. States she has been hospitalized 4 times for pancreatitis,, is not a drinker. No dysuria, no vaginal discharge, no pelvic pain MD elicited complaint: abdominal pain and flank pain Related Data Previous Rx's Medication Instructions Recorded atorvastatin 80 mg tablet 80 mg PO DAILY 90 Days #90 tab 05/21/20 fenofibrate micronized 134 mg 134 mg PO DAILY #30 cap 05/21/20 capsule Allergies Allergy/AdvReac Type Severity Reaction Status Date / Time fenofibrate AdvReac Mild nausea Verified 06/28/20 10:30 tired pravastatin AdvReac Unknown nausea, Verified 06/28/20 09:50 tired Review of Systems Constitutional: Denies body ache(s), Denies chills, Denies fatigue, Denies fever(s), Denies headache(s), Denies malaise and Denies weakness Eyes: Denies diplopia Denies vertigo, Denies dizziness, Denies otalgia, Denies headache(s), Denies mouth pain, Denies post nasal drip, Denies sinus pain, Denies sinus pressure, Denies sore throat and Denies throat swelling Cardiovascular: Denies chest pain, Denies syncope, Denies leg edema, Denies ligh theadedness, Denies Loss of Consciousness, Denies palpitations and Denies dyspnea Respiratory: Denies chest congestion, Denies cough and Denies dyspnea Gastrointestinal: Reports abdominal pain, Denies melena, Denies hematochezia, Denies constipation, Denies diarrhea, Reports nausea and Denies vomiting Genitourinary: Denies dysuria, Denies pelvic pain, Reports flank pain, Denies urinary incontinence, Denies urinary hesitancy, Denies urinary urgency and Denies vaginal discharge Musculoskeletal: Reports back pain Skin/Breast: Denies erythema and Denies rash Denies confusion, Denies vertigo, Denies dizziness, Denies syncope, Denies headache(s) and Denies weakness Psychiatric: Denies anxiety, Denies confusion and Denies depression Endocrine: Denies fatigue and Denies palpitations Allergic/Immunologic: Denies throat swelling Physical Exam Vital Signs: Vital Signs: Last Vital Signs Temp 98.7 F 11/01/20 18:04 Pulse 100 11/01/20 18:04 Resp 19 11/01/20 18:04 BP 133/77 11/01/20 18:04 Pulse Ox 93 11/01/20 18:04 Body Mass Index 79.0 Const: General: No confusion Nutritional Appearance: well nourished Orientation/consciousness: No confusion Limitations: no limitations HENMT: Head: Yes normal to inspection, Yes normocephalic and Yes atraumatic Ears: hearing grossly normal bilaterally, external ears normal, TM's normal bilaterally and EAC's normal General nose exam: Normal external nose present Face and sinus: Yes normal facial exam and Yes sinuses nontender Mouth: Normal oral and palatal mucosa present Throat: Yes posterior oropharynx normal Eyes: Conjunctivae: conjunctivae normal Pupils: Equal, round and reactive pupils present EOM: EOMs intact bilaterally Neck: Neck: Yes full ROM, Yes no lymphadenopathy and Yes supple Resp: Effort & Inspection: normal respiratory effort and able to speak in complete sentences Auscultation: clear to auscultation bilaterally, no crackles, no rales, no rhonchi and no wheezes Cardio: Rate: regular rate Rhythm: regular rhythm Heart sounds: S1 normal heart sound present and S2 normal heart sound present GI: Inspection: Yes Abdominal panniculus present and Yes obesity Palpation (GI): Soft to palpation, Tenderness to palpation present (GI) in the epigastrum, in the LLQ, in the RLQ, in the LUQ and in the RUQ, Guarding due to palpation present (GI) in the LLQ, in the RLQ, in the LUQ and in the RUQ and not rigid Percussion: Yes normal to percussion Auscultation: normal bowel sounds : General: Yes CVA tenderness on the right Back/Spine/Pelvis: Back: CVA tenderness Skin: General skin exam: no rashes or lesions noted Neuro: General: No confusion Cranial nerves: Yes Equal, round and reactive pupils present Extrem: General: Yes normal to inspection and Yes full ROM Psych: Appearance: grossly normal Affect: normal affect Attitude: cooperative Thought process: Normal thought process present Course Course Course Narrative: 45-year-old female presents with 1 day of abdominal pain. She has a history of pancreatitis. Patient has stable vitals. On exam, patient has tender and guarding in all quadrants of her abdomen, with right CVA tenderness. Today she has no elevated white blood count cell count at 14.1, her lipase is 780. Gave morphine and fluids, getting CT. Ct shows: Acute pancreatitis without drainable fluid collection. No evidence of devitalized parenchyma. Appearance does not have as much free fluid as the pancreatitis at time of May 18, [address] Paz would like triglycerides immediately, because last time she was here her triglycerides were over 6000 and she needed to be on an insulin drip for that. If her triglycerides are high as she will need to go to the ICU MDM - Abdominal Pain Lab Data Result diagrams: 11/01/20 11:54 11/01/20 11:54 Labs: Lab Results 11/01/20 11/01/20 11/01/20 Range/Units 11:54 11:54 11:54 WBC 14.1 H (4.8-10.8) X10*3/uL RBC 4.50 (4.20-5.50) X10*6/uL Hgb 11.1 L (12.0-16.0) g/dl Hct 33.0 L (37-47) % MCV 73.3 L (80-98) fL MCH 24.7 L (27.0-33.0) pg MCHC 33.6 (31.0-35.0) g/dl RDW 15.4 (11.0-16.0) % Plt Count 226 (160-400) X10*3/uL MPV 9.8 (9.4-12.3) fL Immature Gran % (Auto) 0.6 H (0.0-0.4) % Neut % (Auto) 74.0 H (45-73) % Lymph % (Auto) 20.1 (20-40) % Brown % (Auto) 3.8 (2-11) % Eos % (Auto) 1.1 (0-4) % Baso % (Auto) 0.4 (0-2) % Lymph # (Auto) 2.8 (1.2-4.9) X10*3/uL Brown # (Auto) 0.5 (0.1-1.2) X10*3/uL Eos # (Auto) 0.2 (0.0-0.4) X10*3/uL Baso # (Auto) 0.1 (0.0-0.2) X10*3/uL Abs Immat Gran (auto) 0.09 H (0.00-0.03) X10*3/uL Absolute Neuts (auto) 10.4 H (2.0-8.3) X10*3/uL Absolute Nucleated RBC 0.000 (0.0-0.012) X10*3/uL Nucleated RBC % (auto) 0.0 (0.0-0.2) /100WBC Smear Tech's Comments VERIFIED Sodium 137 (135-145) mmol/L Potassium 4.0 D (3.3-5.1) mmol/L Chloride 104 (96-108) mmol/L Carbon Dioxide 22 (22-29) mmol/L Anion Gap 15 (12-20) BUN 14 (9-16) mg/dL Creatinine 0.83 (0.5-1.4) mg/dL Estim Creat Clear Calc 148.1 Estimated GFR > 60 Random Glucose 91 D (60-115) mg/dL Calcium 8.8 D (8.4-10.2) mg/dL Total Bilirubin 0.4 (0.0-1.0) mg/dL AST 17 (5-31) U/L ALT 13 (0-31) U/L Alkaline Phosphatase 76 (39-117) U/L Total Protein 7.5 D (6.5-8.0) g/dL Albumin 3.9 D (3.5-5.0) g/dL Triglycerides mg/dL Lipase 780 H (8-78) U/L Urine Color Urine Appearance Urine pH (5.0-8.0) Ur Specific [place] (1.005-1.025) Urine Protein (NEG-TRACE) MG/DL Urine Glucose (UA) (NEG) MG/DL Urine Ketones (NEG) MG/DL Urine Blood (NEG) Urine Nitrite (NEG) Ur Leukocyte Esterase (NEG) Urine RBC (0) /HPF Urine WBC (0-4) /HPF Ur Squamous Epith Cells /LPF Urine Bacteria /LPF Urine Mucus /LPF Urine Test (NEGATIVE) COVID-19 (ANCELMO) Negative (Negative) COVID-19 Clin Com See Note 11/01/20 11/01/20 11/01/20 Range/Units 13:31 13:31 16:02 WBC (4.8-10.8) X10*3/uL RBC (4.20-5.50) X10*6/uL Hgb (12.0-16.0) g/dl Hct (37-47) % MCV (80-98) fL MCH (27.0-33.0) pg MCHC (31.0-35.0) g/dl RDW (11.0-16.0) % Plt Count (160-400) X10*3/uL MPV (9.4-12.3) fL Immature Gran % (Auto) (0.0-0.4) % Neut % (Auto) (45-73) % Lymph % (Auto) (20-40) % Brown % (Auto) (2-11) % Eos % (Auto) (0-4) % Baso % (Auto) (0-2) % Lymph # (Auto) (1.2-4.9) X10*3/uL Brown # (Auto) (0.1-1.2) X10*3/uL Eos # (Auto) (0.0-0.4) X10*3/uL Baso # (Auto) (0.0-0.2) X10*3/uL Abs Immat Gran (auto) (0.00-0.03) X10*3/uL Absolute Neuts (auto) (2.0-8.3) X10*3/uL Absolute Nucleated RBC (0.0-0.012) X10*3/uL Nucleated RBC % (auto) (0.0-0.2) /100WBC Smear Tech's Comments Sodium (135-145) mmol/L Potassium (3.3-5.1) mmol/L Chloride (96-108) mmol/L Carbon Dioxide (22-29) mmol/L Anion Gap (12-20) BUN (9-16) mg/dL Creatinine (0.5-1.4) mg/dL Estim Creat Clear Calc Estimated GFR Random Glucose (60-115) mg/dL Calcium (8.4-10.2) mg/dL Total Bilirubin (0.0-1.0) mg/dL AST (5-31) U/L ALT (0-31) U/L Alkaline Phosphatase (39-117) U/L Total Protein (6.5-8.0) g/dL Albumin (3.5-5.0) g/dL Triglycerides 663 mg/dL Lipase (8-78) U/L Urine Color YELLOW Urine Appearance CLOUDY Urine pH 7.0 (5.0-8.0) Ur Specific [place] 1.015 (1.005-1.025) Urine Protein 2+ H (NEG-TRACE) MG/DL Urine Glucose (UA) NEG (NEG) MG/DL Urine Ketones 15 (NEG) MG/DL Urine Blood 1+ H (NEG) Urine Nitrite POS H (NEG) Ur Leukocyte Esterase 1+ H (NEG) Urine RBC 5-9 H (0) /HPF Urine WBC 5-9 H (0-4) /HPF Ur Squamous Epith Cells 1+ /LPF Urine Bacteria 2+ /LPF Urine Mucus 2+ /LPF Urine Test NEGATIVE (NEGATIVE) COVID-19 (ANCELMO) (Negative) COVID-19 Clin Com Discharge Plan Discharge Clinical Impression: Hypertriglyceridemia Pancreatitis Qualifiers: Chronicity: acute Pancreatitis type: unspecified pancreatitis type Acute pancreatitis complication: no infection or necrosis Qualified Code(s): K85.90 - Acute pancreatitis without necrosis or infection, unspecified Patient Disposition: Admitted As Inpatient [facility] Past Medical History Medical History Anemia (~08/2019) Chronic idiopathic constipation Hx of pancreatitis Hyperlipidemia Hypertriglyceridemia Surgical History S/P cholecystectomy Family History Family History Father Hypertension Dyslipidemia Pancreatitis, recurrent Mother Hypertension Diabetes Acute CVA (cerebrovascular accident) Maternal Grandmother Uterine cancer Renal failure Maternal Grandfather CAD (coronary artery disease) Maternal Uncle Myocardial infarction Social History Social History Household Members: Family Housing: Apartment Do you presently have visiting nurse or other home services: No Unable to assess alcohol history related to: Unknown Alcohol intake: never Patient Tobacco Use Status: Never used Tobacco Smoked in Last 30 Days: No Use of substances other than those prescribed or required for medical reasons: No Advance Directives: No Advance Directives Information Provided: No service: No Current occupational status: employed 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
[2020-11-01 13:42] LABS: Glucose Urine UA NEG (NEG); Leukocyte Esterase Urine 1+ (NEG); Nitrite Urine POS (NEG); Specific Gravity - Urine 1.015 (1.005-1.025); Urine Blood 1+ (NEG); Urine Ketones 15 MG/DL (NEG); Urine Protein 2+ MG/DL (NEG-TRACE)
[2020-11-01 13:43] LABS: Appearance Urine CLOUDY; Color Urine YELLOW
[2020-11-01 13:44] LABS: UPreg QC Valid YES; Urine Pregnancy NEGATIVE (NEGATIVE)
[2020-11-01 13:49] LABS: Bacteria Urine 2+ /LPF; Mucus Urine 2+ /LPF; Squamous Epithelial Cell Urine 1+ /LPF
[2020-11-01] MEDS: iohexoL 350 MG/ML 100 ML INFUS..BTL 85 ML IV (14:12)
[2020-11-01] MEDS: HYDROmorphone HCl 1 MG/ML SYRINGE IVPUSH (15:56)
--- NOTE | 2020-11-01 16:18 | PHA.MEDREC ---
Pharmacy Consult ? Medication Reconciliation Pharmacy has completed the medication reconciliation.
[2020-11-01 16:47] LABS: Triglycerides 663 mg/dL
[2020-11-01] MEDS: HYDROmorphone HCl 0.5 MG/0.5 ML SYRINGE IVPUSH ×2 (17:40→21:19)
[2020-11-01] MEDS: Dextrose 5 % and 0.9 % NaCl 1,000 ML 150 ML IVCONT ×2 (17:45→23:46)
[2020-11-01 18:12] LABS: Glucose, Whole Blood 126 mg/dL (60-115)
[2020-11-01 19:30] LABS: Glucose, Whole Blood 146 mg/dL (60-115)
[2020-11-01] MEDS: Insulin Glargine,Hum.rec.anlog 100 UNIT/ML 10 ML VIAL 12 UNIT SUBCUT (19:30)
[2020-11-01 19:55] LABS: Glucose, Whole Blood 141 mg/dL (60-115)
--- NOTE | 2020-11-01 20:01 | HP_ITS ---
DATE OF SERVICE: 11/01/2020 CHIEF COMPLAINT: Abdominal pain. 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 She denies any associated vomiting, diarrhea. No fever, no chills. She denies any fatty food or fried food. She has been following a low-fat diet, had smoothie yesterday, and has been compliant with her statins including Lipitor and fenofibrate. The patient's workup in the emergency room revealed an elevated lipase of 780 and a triglyceride of 663. WBCs 14,000, hematocrit is stable. Electrolytes, renal function is stable, normal bicarb, normal LFTs. An imaging study showed an acute pancreatitis without drainable fluid collection. No evidence of devitalized parenchyma. There is no significant free fluid collection noted. The patient has hepatosplenomegaly and fatty infiltration of liver. The patient treated in the emergency room with IV fluids, analgesics, but due to persistent pain and acute pancreatitis, she is being admitted to [facility]. PAST MEDICAL HISTORY: Significant for, 1. Recurrent pancreatitis related to hypertriglyceridemia. 2. History of anemia. 3. History of chronic idiopathic constipation. PAST SURGICAL HISTORY: She is status post cholecystectomy. SOCIAL HISTORY: She lives with family. Denies history of smoking or alcohol abuse. 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 FAMILY HISTORY: Father has hypertension, dyslipidemia, and recurrent pancreatitis. Mother has hypertension and diabetes and had a stroke. ALLERGIES: SHE HAS NAUSEA AND TIREDNESS FEELING WITH FENOFIBRATE AND PRAVASTATIN. MEDICATIONS ON ADMISSION: Are Lipitor 80 mg daily, fenofibrate 134 mg by mouth daily. 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 CVS: She denies chest pain or palpitation. RESPIRATORY: She denies cough or sputum production. No shortness of breath. : No urinary symptoms of urgency or frequency. SKIN: She denies any rashes or itching. Rest of all other systems are reviewed and are negative. PHYSICAL EXAMINATION: GENERAL: The patient is resting in bed, has mild distress due to pain. VITALS: BP 144/90 with a pulse of 106, temp of 99.2, room air finger oximetry of 97%. HEENT: Pupils equal, round, and reactive to light and accommodation. Anicteric sclerae. NECK: Supple. No increased JVD. LUNGS: Clear to auscultation bilaterally. HEART: Regular rate and rhythm. ABDOMEN: Obese, soft, mild diffuse tenderness to palpation. No guarding. No rigidity noted. EXTREMITIES: Without clubbing, cyanosis, or edema. SKIN: Without rashes. No jaundice. NEUROLOGIC: Nonfocal. PSYCH: Appropriate affect. LABORATORY [place]: [place] [address], hematocrit 33, hemoglobin 11.1, low MCV of 73, platelet count of 226. BUN 14, creatinine of 0.83, blood sugar not obtained. Sodium 137, potassium 4, bilirubin 0.4, albumin of 3.9, lipase 780, triglycerides 663. 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 Workup in the ER consistent with acute recurrent pancreatitis. 1. Recurrent acute pancreatitis due to hypertriglyceridemia. The patient will be admitted to telemetry unit. We will place her on IV fluids and analgesic medication. Keep her n.p.o.,will give her low-dose Lantus to help decrease the triglyceride level, follow blood sugar q.4 hours to avoid hypoglycemia since patient is not a diabetic use D5 normal saline for fluids , Follow triglyceride level in the morning goal of triglyceride less than 500 Continue fenofibrate and Lipitor. Follow electrolytes, CBC, renal function closely. 2. History of hypertriglyceridemia. will follow triglyceride level at a.m. Recommend to continue home medications and low-fat diet upon discharge. 3. Deep vein thrombosis prophylaxis. We will place her on compression boots. MD ISAAC Coyle/AMANDA / [phone]
[2020-11-02] VITALS (9 sets, daily range): BP systolic 96–121; BP diastolic 56–73; PULSE 101–120; RESP 16–20; TEMP 36.3–37.6; O2SAT 90–97
[2020-11-02 00:02] LABS: Glucose, Whole Blood 172 mg/dL (60-115)
[2020-11-02] MEDS: HYDROmorphone HCl 0.5 MG/0.5 ML SYRINGE IVPUSH ×3 (01:08→09:13)
[2020-11-02 03:12] LABS: Glucose, Whole Blood 134 mg/dL (60-115)
[2020-11-02] MEDS: Acetaminophen 325 MG TABLET 650 MG PO (05:10)
[2020-11-02] MEDS: ondansetron HCL 4 MG/2 ML VIAL IVPUSH (05:10)
[2020-11-02] MEDS: Dextrose 5 % and 0.9 % NaCl 1,000 ML 150 ML IVCONT ×2 (06:30→13:17)
[2020-11-02 06:33] LABS: Basophils Percent Auto 0.2 % (0-2); Eosinophils Absolute Auto 0.1 X10*3/uL (0.0-0.4); Eosinophils Percent Auto 0.4 % (0-4); Hematocrit 32.2 % (37-47); Imm Gran Abs Auto 0.06 X10*3/uL (0.00-0.03); Imm Gran Pct Auto 0.4 % (0.0-0.4); Lymphocytes Absolute Auto 1.4 X10*3/uL (1.2-4.9); Lymphocytes Percent Auto 9.9 % (20-40); MANUAL DIFF FLAG SCAN; Mean Platelet Volume 10.1 fL (9.4-12.3); Monocytes Absolute Auto 0.7 X10*3/uL (0.1-1.2); Monocytes Percent Auto 5.3 % (2-11); Neutrophils Absolute Auto 11.6 X10*3/uL (2.0-8.3); Neutrophils Percent Auto 83.8 % (45-73); Platelet Count 210 X10*3/uL (160-400); Red Blood Count 4.35 X10*6/uL (4.20-5.50); Red Cell Distribution Width 15.9 % (11.0-16.0); SCAN SMEAR FLAG 1; White Blood Count 13.9 X10*3/uL (4.8-10.8)
[2020-11-02 06:47] LABS: Hemoglobin 10.8 g/dl (12.0-16.0); Mean Corpuscular HGB Conc 33.5 g/dl (31.0-35.0); Mean Corpuscular Hemoglobin 24.8 pg (27.0-33.0)
[2020-11-02 07:08] LABS: SLIDE REVIEW VERIFIED
[2020-11-02 07:09] LABS: Anion Gap 13 (12-20); Blood Urea Nitrogen 9 mg/dL (9-16); Calcium 6.4 mg/dL (8.4-10.2); Carbon Dioxide 20 mmol/L (22-29); Chloride 103 mmol/L (96-108); Creatinine Clr Calc Pharmacy 151.7; Estimated Glomerular Filt Rate > 60; Glucose Random 157 mg/dL (60-115); Lipase 318 U/L (8-78); Potassium 3.6 mmol/L (3.3-5.1); Sodium 132 mmol/L (135-145); Triglycerides 4082 mg/dL
[2020-11-02 07:17] LABS: Glucose, Whole Blood 149 mg/dL (60-115)
[2020-11-02] MEDS: Atorvastatin Calcium 80 MG TABLET PO (09:13)
[2020-11-02] MEDS: Fenofibrate,Micronized 134 MG CAPSULE PO (09:13)
[2020-11-02] MEDS: Famotidine/PF 20 MG/2 ML VIAL IVPUSH (09:14)
[2020-11-02] MEDS: Insulin Glargine,Hum.rec.anlog 100 UNIT/ML 10 ML VIAL 20 UNIT SUBCUT (09:14)
[2020-11-02 10:58] LABS: Glucose, Whole Blood 139 mg/dL (60-115)
--- NOTE | 2020-11-02 11:00 | MHC.CM.PN ---
CM met with Patient and her at bedside. Patient lives in a house with her , 19 year old Son and 11 year old Daughter and she is functionally independent and working. Home no services is the goal for dc and CM has initiated and will follow for dc planning.PCP is DR. Jojo Seymour.Patient's Mother/Sandra is the HCP.Patient does not use O2 @ home.
[2020-11-02] MEDS: HYDROmorphone HCl 1 MG/ML SYRINGE IVPUSH ×3 (13:16→21:15)
--- NOTE | 2020-11-02 14:30 | P.PNIM_ITS ---
Subjective Subjective Date of Service: 11/02/20 Interval History: Complaining of abdominal pain, associated with nausea and vomiting, no fever chills no other acute issues overnight. 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 CVS? regular rate rhythm, Respiratory lungs clear to auscultation, diminished breath sound, no respiratory distress, no wheeze, no rhonchi. Gastrointestinal abdomen mild diffuse tenderness , bowel sounds audible, soft, no guarding , no rigidity, no distension. Extremities no clubbing cyanosis or edema. Neuro nonfocal . Skin no rash Objective Data Current Medications Generic Name Dose Route Start Last Admin Trade Name Freq PRN Reason Stop Dose Admin Acetaminophen 650 mg 11/01/20 17:27 11/02/20 05:10 Acetaminophen 325 Mg Tablet PO 650 mg Q6H PRN Administration Pain, Mild (Pain Scale 1-3) Atorvastatin Calcium 80 mg 11/02/20 09:00 11/02/20 09:13 Atorvastatin Calcium 80 Mg Tablet PO 80 mg DAILY IVAN Administration Famotidine 20 mg 11/02/20 09:00 11/02/20 09:14 Famotidine/Pf 20 Mg/2 Ml Vial IVPUSH 20 mg DAILY IVAN Administration Fenofibrate 134 mg 11/02/20 09:00 11/02/20 09:13 Fenofibrate,Micronized 134 Mg Capsule PO 134 mg DAILY IVAN Administration Hydromorphone HCl 1 mg 11/02/20 10:47 11/02/20 13:16 Hydromorphone Hcl 1 Mg/Ml Syringe IVPUSH 1 mg Q4H PRN Administration severe pain Protocol Dextrose/Sodium Chloride 1,000 mls @ 150 mls/hr 11/01/20 17:30 11/02/20 13:17 D5ns IVCONT 150 mls/hr .Q6H40M IVAN Administration Ondansetron HCl 4 mg 11/01/20 17:27 11/02/20 05:10 Ondansetron Hcl 4 Mg/2 Ml Vial IVPUSH 4 mg Q8H PRN Administration Nausea and Vomiting Pharmacy Consult 1 each 11/01/20 15:48 Consult Rx Perform Med Rec MISCELLANE ONCE PRN Consult order Sodium Chloride 3 ml 11/02/20 00:00 11/02/20 09:07 0.9 % Sodium Chloride Flush 3 Ml Syringe IVFLUSH Not Given QSHIFT [facility] Labs CBC & Chem 7: 11/02/20 05:40 11/02/20 05:40 Labs: Laboratory Results - last 24 hr 11/01/20 11/01/20 11/01/20 16:02 18:07 19:27 MCV MCH MCHC RDW Plt Count MPV Immature Gran % (Auto) Neut % (Auto) Lymph % (Auto) [place] % (Auto) Eos % (Auto) Baso % (Auto) Lymph # (Auto) [place] # (Auto) Eos # (Auto) Baso # (Auto) Abs Immat Gran (auto) Absolute Neuts (auto) Absolute Nucleated RBC Nucleated RBC % (auto) Smear Tech's Comments Anion Gap Estim Creat Clear Calc Estimated GFR POC Glucose 126 H 146 H Random Glucose Calcium Triglycerides 663 Lipase 11/01/20 11/01/20 11/02/20 19:50 23:57 03:08 MCV MCH MCHC RDW Plt Count MPV Immature Gran % (Auto) Neut % (Auto) Lymph % (Auto) [place] % (Auto) Eos % (Auto) Baso % (Auto) Lymph # (Auto) [place] # (Auto) Eos # (Auto) Baso # (Auto) Abs Immat Gran (auto) Absolute Neuts (auto) Absolute Nucleated RBC Nucleated RBC % (auto) Smear Tech's Comments Anion Gap Estim Creat Clear Calc Estimated GFR POC Glucose 141 H 172 H 134 H Random Glucose Calcium Triglycerides Lipase 11/02/20 11/02/20 11/02/20 05:40 05:40 07:13 MCV 74.0 L MCH 24.8 L MCHC 33.5 RDW 15.9 Plt Count 210 MPV 10.1 Immature Gran % (Auto) 0.4 Neut % (Auto) 83.8 H Lymph % (Auto) 9.9 L [place] % (Auto) 5.3 Eos % (Auto) 0.4 Baso % (Auto) 0.2 Lymph # (Auto) 1.4 [place] # (Auto) 0.7 Eos # (Auto) 0.1 Baso # (Auto) 0.0 Abs Immat Gran (auto) 0.06 H Absolute Neuts (auto) 11.6 H Absolute Nucleated RBC 0.000 Nucleated RBC % (auto) 0.0 Smear Tech's Comments VERIFIED Anion Gap 13 Estim Creat Clear Calc 151.7 Estimated GFR > 60 POC Glucose 149 H Random Glucose 157 H D Calcium 6.4 L D Triglycerides 4082 Lipase 318 H 11/02/20 10:50 MCV MCH MCHC RDW Plt Count MPV Immature Gran % (Auto) Neut % (Auto) Lymph % (Auto) [place] % (Auto) Eos % (Auto) Baso % (Auto) Lymph # (Auto) [place] # (Auto) Eos # (Auto) Baso # (Auto) Abs Immat Gran (auto) Absolute Neuts (auto) Absolute Nucleated RBC Nucleated RBC % (auto) Smear Tech's Comments Anion Gap Estim Creat Clear Calc Estimated GFR POC Glucose 139 H Random Glucose Calcium Triglycerides Lipase Assessment and Plan (1) Hypertriglyceridemia: Status: Acute (2) Pancreatitis: Status: Acute (3) Chronic idiopathic constipation: Status: Acute Assessment and Plan: Acute 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 Persistent abdominal pain with nausea and vomiting Lipase trending down, triglyceride bumped fron 663 to 4082 will treat with Lantus, and IV D5RL check triglyceride level twice daily, monitor blood sugar q.2 hours Increase dose of Dilaudid to 1 mg follow renal function CBC, electrolytes,ca and renal function If noted to have worsening triglyceride Will transferred to ICU for IV insulin drip Hypertriglyceridemia familial will need strict diet /fibrate and Lipitor Nutrition consult for hypertriglyceridemia Quality Stroke Does the patient have a stroke diagnosis?: No VTE Prior VTE?: No VTE Risk Level:: Medical - moderate - high VTE Device Contraindication: N/A - Device Ordered VTE Drug Contraindication: Treatment Not Indicated
[2020-11-02] MEDS: Dextrose 5 % and Lactated Ring 1,000 ML 150 ML IVCONT ×2 (14:44→22:07)
[2020-11-02 16:08] LABS: Glucose, Whole Blood 136 mg/dL (60-115)
[2020-11-02 18:55] LABS: Triglycerides 2325 mg/dL
[2020-11-02 21:15] LABS: Glucose, Whole Blood 134 mg/dL (60-115)
[2020-11-02] MEDS: 0.9 % Sodium Chloride Flush 3 ML SYRINGE IVFLUSH (21:16)
[2020-11-02 23:17] LABS: Glucose, Whole Blood 120 mg/dL (60-115)
[2020-11-03] VITALS (7 sets, daily range): BP systolic 111–137; BP diastolic 62–81; PULSE 100–120; RESP 16–20; TEMP 36.1–37.2; O2SAT 95–97
[2020-11-03] MEDS: HYDROmorphone HCl 1 MG/ML SYRINGE IVPUSH ×5 (01:51→20:39)
[2020-11-03 03:21] LABS: Glucose, Whole Blood 138 mg/dL (60-115)
[2020-11-03] MEDS: Dextrose 5 % and Lactated Ring 1,000 ML 150 ML IVCONT (04:50)
[2020-11-03 05:32] LABS: MANUAL DIFF FLAG NO
[2020-11-03 06:10] LABS: Creatinine Clr Calc Pharmacy 170.7; Estimated Glomerular Filt Rate > 60
[2020-11-03 06:11] LABS: Anion Gap 12 (12-20); Blood Urea Nitrogen 6 mg/dL (9-16); Calcium 6.9 mg/dL (8.4-10.2); Carbon Dioxide 22 mmol/L (22-29); Chloride 104 mmol/L (96-108); Glucose Random 137 mg/dL (60-115); Potassium 3.4 mmol/L (3.3-5.1); Sodium 135 mmol/L (135-145)
[2020-11-03 06:15] LABS: Basophils Percent Auto 0.3 % (0-2); Eosinophils Absolute Auto 0.1 X10*3/uL (0.0-0.4); Eosinophils Percent Auto 0.5 % (0-4); Hematocrit 28.5 % (37-47); Hemoglobin 9.6 g/dl (12.0-16.0); Imm Gran Abs Auto 0.09 X10*3/uL (0.00-0.03); Imm Gran Pct Auto 0.7 % (0.0-0.4); Lymphocytes Absolute Auto 1.5 X10*3/uL (1.2-4.9); Mean Corpuscular HGB Conc 33.7 g/dl (31.0-35.0); Mean Corpuscular Volume 74.2 fL (80-98); Mean Platelet Volume 10.3 fL (9.4-12.3); Monocytes Absolute Auto 0.5 X10*3/uL (0.1-1.2); Monocytes Percent Auto 3.8 % (2-11); Neutrophils Absolute Auto 11.4 X10*3/uL (2.0-8.3); Neutrophils Percent Auto 83.7 % (45-73); Platelet Count 202 X10*3/uL (160-400); Red Blood Count 3.84 X10*6/uL (4.20-5.50); Red Cell Distribution Width 16.3 % (11.0-16.0); White Blood Count 13.6 X10*3/uL (4.8-10.8)
[2020-11-03 06:24] LABS: Triglycerides 1292 mg/dL
[2020-11-03 07:11] LABS: Glucose, Whole Blood 116 mg/dL (60-115)
[2020-11-03] MEDS: Famotidine/PF 20 MG/2 ML VIAL IVPUSH (07:31)
[2020-11-03] MEDS: Atorvastatin Calcium 80 MG TABLET PO (07:32)
[2020-11-03] MEDS: 0.9 % Sodium Chloride Flush 3 ML SYRINGE IVFLUSH ×2 (07:32→20:40)
[2020-11-03] MEDS: Fenofibrate,Micronized 134 MG CAPSULE PO (07:32)
[2020-11-03] MEDS: Insulin Glargine,Hum.rec.anlog 100 UNIT/ML 10 ML VIAL 12 UNIT SUBCUT (09:25)
[2020-11-03] MEDS: Acetaminophen 325 MG TABLET 650 MG PO (11:05)
[2020-11-03 11:07] LABS: Glucose, Whole Blood 124 mg/dL (60-115)
[2020-11-03] MEDS: Dextrose 5 % and Lactated Ring 1,000 ML 175 ML IVCONT ×3 (11:09→20:40)
--- NOTE | 2020-11-03 13:13 | HO.PM.IMPN ---
Subjective Subjective Date of Service: 11/03/20 Interval History: Persistent diffuse abdominal pain but improving, no nausea no vomiting no diarrhea, no fever chills. 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 CVS? regular, rate, rhythm, Respiratory lungs clear to auscultation, diminished breath sound, no respiratory distress, no wheeze, no rhonchi. Gastrointestinal abdomen mild diffuse tenderness , bowel sounds audible, soft, no guarding , no rigidity, no distension. Extremities no edema. Neuro nonfocal . Skin no rash Objective Data Current Medications Generic Name Dose Route Start Last Admin Trade Name Freq PRN Reason Stop Dose Admin Acetaminophen 650 mg 11/01/20 17:27 11/03/20 11:05 Acetaminophen 325 Mg Tablet PO 650 mg Q6H PRN Administration Pain, Mild (Pain Scale 1-3) Atorvastatin Calcium 80 mg 11/02/20 09:00 11/03/20 07:32 Atorvastatin Calcium 80 Mg Tablet PO 80 mg DAILY IVAN Administration Famotidine 20 mg 11/02/20 09:00 11/03/20 07:31 Famotidine/Pf 20 Mg/2 Ml Vial IVPUSH 20 mg DAILY IVAN Administration Fenofibrate 134 mg 11/02/20 09:00 11/03/20 07:32 Fenofibrate,Micronized 134 Mg Capsule PO 134 mg DAILY IVAN Administration Hydromorphone HCl 1 mg 11/02/20 10:47 11/03/20 12:02 Hydromorphone Hcl 1 Mg/Ml Syringe IVPUSH 1 mg Q4H PRN Administration severe pain Protocol Dextrose/Lactated Ringer's 1,000 mls @ 175 mls/hr 11/02/20 14:45 11/03/20 11:09 D5lr IVCONT 175 mls/hr .Q5H43M IVAN Administration Ondansetron HCl 4 mg 11/01/20 17:27 11/02/20 05:10 Ondansetron Hcl 4 Mg/2 Ml Vial IVPUSH 4 mg Q8H PRN Administration Nausea and Vomiting Pharmacy Consult 1 each 11/01/20 15:48 Consult Rx Perform Med Rec MISCELLANE ONCE PRN Consult order Sodium Chloride 3 ml 11/02/20 00:00 11/03/20 07:32 0.9 % Sodium Chloride Flush 3 Ml Syringe IVFLUSH 3 ml QSHIFT IVAN Administration Labs CBC & Chem 7: 11/03/20 05:18 11/03/20 05:18 Labs: Laboratory Results - last 24 hr 11/02/20 11/02/20 11/02/20 16:03 17:35 21:12 MCV MCH MCHC RDW Plt Count MPV Immature Gran % (Auto) Neut % (Auto) Lymph % (Auto) [place] % (Auto) Eos % (Auto) Baso % (Auto) Lymph # (Auto) [place] # (Auto) Eos # (Auto) Baso # (Auto) Abs Immat Gran (auto) Absolute Neuts (auto) Absolute Nucleated RBC Nucleated RBC % (auto) Anion Gap Estim Creat Clear Calc Estimated GFR POC Glucose 136 H 134 H Random Glucose Calcium Triglycerides 2325 11/02/20 11/03/20 11/03/20 23:12 03:15 05:18 MCV 74.2 L MCH 25.0 L MCHC 33.7 RDW 16.3 H Plt Count 202 MPV 10.3 Immature Gran % (Auto) 0.7 H Neut % (Auto) 83.7 H Lymph % (Auto) 11.0 L [place] % (Auto) 3.8 Eos % (Auto) 0.5 Baso % (Auto) 0.3 Lymph # (Auto) 1.5 [place] # (Auto) 0.5 Eos # (Auto) 0.1 Baso # (Auto) 0.0 Abs Immat Gran (auto) 0.09 H Absolute Neuts (auto) 11.4 H Absolute Nucleated RBC 0.000 Nucleated RBC % (auto) 0.0 Anion Gap Estim Creat Clear Calc Estimated GFR POC Glucose 120 H 138 H Random Glucose Calcium Triglycerides 11/03/20 11/03/20 11/03/20 05:18 07:07 11:01 MCV MCH MCHC RDW Plt Count MPV Immature Gran % (Auto) Neut % (Auto) Lymph % (Auto) [place] % (Auto) Eos % (Auto) Baso % (Auto) Lymph # (Auto) [place] # (Auto) Eos # (Auto) Baso # (Auto) Abs Immat Gran (auto) Absolute Neuts (auto) Absolute Nucleated RBC Nucleated RBC % (auto) Anion Gap 12 Estim Creat Clear Calc 170.7 Estimated GFR > 60 POC Glucose 116 H 124 H Random Glucose 137 H Calcium 6.9 L D Triglycerides 1292 Assessment and Plan (1) Pancreatitis: Status: Acute (2) Hypertriglyceridemia: Status: Acute Assessment and Plan: Acute 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 Persistent abdominal pain and nausea slowly improving Lipase trending down, triglyceride trending down from 4082 to 2325 to 1292 continue with Lantus bid, and IV D5RL to avoid hypoglycemia, check blood sugars q.2 hours check triglyceride level , goal of triglyceride less than 500 Continue Dilaudid 1 mg?Q5h, renal function CBC, bicarb and electrolytes are stable, calcium low but stable follow albumin Follow labs at am If noted to have worsening triglyceride Will transferred to ICU for IV insulin drip Will start clear liquid diet and Ensure Clear Hypertriglyceridemia familial will need strict diet /fibrate and Lipitor Nutrition consult for hypertriglyceridemia Quality Stroke Does the patient have a stroke diagnosis?: No VTE Prior VTE?: No VTE Risk Level:: Medical - moderate - high VTE Device Contraindication: N/A - Device Ordered VTE Drug Contraindication: Treatment Not Indicated
[2020-11-03 16:10] LABS: Glucose, Whole Blood 142 mg/dL (60-115)
[2020-11-03 18:40] LABS: Triglycerides 1050 mg/dL
[2020-11-03 20:06] LABS: Glucose, Whole Blood 119 mg/dL (60-115)
[2020-11-03] MEDS: Insulin Glargine,Hum.rec.anlog 100 UNIT/ML 10 ML VIAL 10 UNIT SUBCUT (20:39)
[2020-11-03 23:39] LABS: Glucose, Whole Blood 133 mg/dL (60-115)
[2020-11-04] MEDS: HYDROmorphone HCl 1 MG/ML SYRINGE IVPUSH ×5 (00:42→20:28)
[2020-11-04 03:14] VITALS: BP 103/60; PULSE 95; RESP 18; TEMP 37; O2SAT 100
[2020-11-04 03:22] LABS: Glucose, Whole Blood 112 mg/dL (60-115)
[2020-11-04] MEDS: Dextrose 5 % and Lactated Ring 1,000 ML 175 ML IVCONT ×3 (06:09→17:30)
[2020-11-04 06:34] LABS: MANUAL DIFF FLAG NO
[2020-11-04 06:44] LABS: Basophils Percent Auto 0.4 % (0-2); Eosinophils Absolute Auto 0.2 X10*3/uL (0.0-0.4); Eosinophils Percent Auto 1.7 % (0-4); Hematocrit 29.9 % (37-47); Hemoglobin 9.8 g/dl (12.0-16.0); Imm Gran Abs Auto 0.14 X10*3/uL (0.00-0.03); Imm Gran Pct Auto 1.3 % (0.0-0.4); Lymphocytes Absolute Auto 1.5 X10*3/uL (1.2-4.9); Lymphocytes Percent Auto 13.8 % (20-40); Mean Corpuscular HGB Conc 32.8 g/dl (31.0-35.0); Mean Corpuscular Hemoglobin 24.4 pg (27.0-33.0); Mean Corpuscular Volume 74.6 fL (80-98); Mean Platelet Volume 10.2 fL (9.4-12.3); Monocytes Absolute Auto 0.6 X10*3/uL (0.1-1.2); Monocytes Percent Auto 5.1 % (2-11); Neutrophils Absolute Auto 8.5 X10*3/uL (2.0-8.3); Neutrophils Percent Auto 77.7 % (45-73); Platelet Count 199 X10*3/uL (160-400); Red Blood Count 4.01 X10*6/uL (4.20-5.50); Red Cell Distribution Width 16.8 % (11.0-16.0); White Blood Count 10.9 X10*3/uL (4.8-10.8)
[2020-11-04 07:06] VITALS: BP 144/76; PULSE 104; RESP 20; TEMP 36.1; O2SAT 99
[2020-11-04 07:11] LABS: Lipase 178 U/L (8-78)
[2020-11-04 07:14] LABS: Anion Gap 14 (12-20); Blood Urea Nitrogen 4 mg/dL (9-16); Calcium 7.7 mg/dL (8.4-10.2); Carbon Dioxide 23 mmol/L (22-29); Chloride 104 mmol/L (96-108); Estimated Glomerular Filt Rate > 60; Glucose Random 107 mg/dL (60-115); Potassium 3.6 mmol/L (3.3-5.1); Sodium 137 mmol/L (135-145); Triglycerides 955 mg/dL
[2020-11-04] MEDS: Fenofibrate,Micronized 134 MG CAPSULE PO (09:03)
[2020-11-04] MEDS: Acetaminophen 325 MG TABLET 650 MG PO (09:03)
[2020-11-04] MEDS: 0.9 % Sodium Chloride Flush 3 ML SYRINGE IVFLUSH ×2 (09:03→20:28)
[2020-11-04] MEDS: Atorvastatin Calcium 80 MG TABLET PO (09:04)
[2020-11-04] MEDS: Famotidine/PF 20 MG/2 ML VIAL IVPUSH (09:04)
[2020-11-04] MEDS: ondansetron HCL 4 MG/2 ML VIAL IVPUSH (10:23)
[2020-11-04 12:29] VITALS: BP 137/75; PULSE 86; RESP 18; TEMP 36.6; O2SAT 96
--- NOTE | 2020-11-04 13:58 | P.PNIM_ITS ---
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 Persistent abdominal pain and nausea slowly improving Lipase trending down, triglyceride trending down, goal of triglyceride less than 500 Continue Dilaudid 1 mg?Q5h If noted to have worsening triglyceride Will be transferred to ICU for IV insulin drip Will start clear liquid diet and Ensure Clear Hypertriglyceridemia familial will need strict diet /fibrate and Lipitor Nutrition consult for hypertriglyceridemia DVT prophylaxis with compression boots and ambulation Subjective Subjective Date of Service: 11/04/20 Interval History: Follow up pancreatitis Still with abdominal pain and nausea better than yesterday but poor appetite Physical Exam Vital Signs: Vital Signs: Last Vital Signs Temp 98 F 11/04/20 12:29 Pulse 86 11/04/20 12:29 Resp 18 11/04/20 12:29 BP 137/75 11/04/20 12:29 Pulse Ox 96 11/04/20 12:29 Oxygen Flow Rate 2 11/02/20 02:10 Body Mass Index 79.0 Appearing in no acute distress lung sounds are clear to auscultation heart regular rate rhythm, clear S1, S2 positive bowel sounds, epigastric abdominal pain neuro patient is alert x3, no focal deficits Objective Data Current Medications Generic Name Dose Route Start Last Admin Trade Name Freq PRN Reason Stop Dose Admin Acetaminophen 650 mg 11/01/20 17:27 11/04/20 09:03 Acetaminophen 325 Mg Tablet PO 650 mg Q6H PRN Administration Pain, Mild (Pain Scale 1-3) Atorvastatin Calcium 80 mg 11/02/20 09:00 11/04/20 09:04 Atorvastatin Calcium 80 Mg Tablet PO 80 mg DAILY IVAN Administration Famotidine 20 mg 11/02/20 09:00 11/04/20 09:04 Famotidine/Pf 20 Mg/2 Ml Vial IVPUSH 20 mg DAILY IVAN Administration Fenofibrate 134 mg 11/02/20 09:00 11/04/20 09:03 Fenofibrate,Micronized 134 Mg Capsule PO 134 mg DAILY IVAN Administration Hydromorphone HCl 1 mg 11/02/20 10:47 11/04/20 10:23 Hydromorphone Hcl 1 Mg/Ml Syringe IVPUSH 1 mg Q4H PRN Administration severe pain Protocol Dextrose/Lactated Ringer's 1,000 mls @ 175 mls/hr 11/02/20 14:45 11/04/20 1 1:57 D5lr IVCONT 175 mls/hr .Q5H43M IVAN Administration Ondansetron HCl 4 mg 11/01/20 17:27 11/04/20 10:23 Ondansetron Hcl 4 Mg/2 Ml Vial IVPUSH 4 mg Q8H PRN Administration Nausea and Vomiting Pharmacy Consult 1 each 11/01/20 15:48 Consult Rx Perform Med Rec MISCELLANE ONCE PRN Consult order Sodium Chloride 3 ml 11/02/20 00:00 11/04/20 09:03 0.9 % Sodium Chloride Flush 3 Ml Syringe IVFLUSH 3 ml QSHIFT IVAN Administration Labs CBC & Chem 7: 11/04/20 06:07 11/04/20 06:07 Labs: Laboratory Results - last 24 hr 11/03/20 11/03/20 11/03/20 16:05 18:12 20:03 MCV MCH MCHC RDW Plt Count MPV Immature Gran % (Auto) Neut % (Auto) Lymph % (Auto) [place] % (Auto) Eos % (Auto) Baso % (Auto) Lymph # (Auto) [place] # (Auto) Eos # (Auto) Baso # (Auto) Abs Immat Gran (auto) Absolute Neuts (auto) Absolute Nucleated RBC Nucleated RBC % (auto) Anion Gap Estim Creat Clear Calc Estimated GFR POC Glucose 142 H 119 H Random Glucose Calcium Triglycerides 1050 Lipase 11/03/20 11/04/20 11/04/20 23:32 03:18 06:07 MCV 74.6 L MCH 24.4 L MCHC 32.8 RDW 16.8 H Plt Count 199 MPV 10.2 Immature Gran % (Auto) 1.3 H Neut % (Auto) 77.7 H Lymph % (Auto) 13.8 L [place] % (Auto) 5.1 Eos % (Auto) 1.7 Baso % (Auto) 0.4 Lymph # (Auto) 1.5 [place] # (Auto) 0.6 Eos # (Auto) 0.2 Baso # (Auto) 0.0 Abs Immat Gran (auto) 0.14 H Absolute Neuts (auto) 8.5 H Absolute Nucleated RBC 0.000 Nucleated RBC % (auto) 0.0 Anion Gap Estim Creat Clear Calc Estimated GFR POC Glucose 133 H 112 Random Glucose Calcium Triglycerides Lipase 11/04/20 11/04/20 06:07 06:07 MCV MCH MCHC RDW Plt Count MPV Immature Gran % (Auto) Neut % (Auto) Lymph % (Auto) [place] % (Auto) Eos % (Auto) Baso % (Auto) Lymph # (Auto) [place] # (Auto) Eos # (Auto) Baso # (Auto) Abs Immat Gran (auto) Absolute Neuts (auto) Absolute Nucleated RBC Nucleated RBC % (auto) Anion Gap 14 Estim Creat Clear Calc 189.0 Estimated GFR > 60 POC Glucose Random Glucose 107 Calcium 7.7 L D Triglycerides 955 Lipase 178 H Quality Stroke Does the patient have a stroke diagnosis?: No VTE Prior VTE?: No VTE Risk Level:: Medical - moderate - high VTE Device Contraindication: N/A - Device Ordered VTE Drug Contraindication: Treatment Not Indicated
--- NOTE | 2020-11-04 14:15 | P.PNIM_ITS ---
Subjective Subjective Date of Service: 11/05/20 Physical Exam Vital Signs: Vital Signs: Last Vital Signs Temp 98 F 11/04/20 12:29 Pulse 86 11/04/20 12:29 Resp 18 11/04/20 12:29 BP 137/75 11/04/20 12:29 Pulse Ox 96 11/04/20 12:29 Oxygen Flow Rate 2 11/02/20 02:10 Body Mass Index 79.0 Objective Data Current Medications Generic Name Dose Route Start Last Admin Trade Name Freq PRN Reason Stop Dose Admin Acetaminophen 650 mg 11/01/20 17:27 11/04/20 09:03 Acetaminophen 325 Mg Tablet PO 650 mg Q6H PRN Administration Pain, Mild (Pain Scale 1-3) Atorvastatin Calcium 80 mg 11/02/20 09:00 11/04/20 09:04 Atorvastatin Calcium 80 Mg Tablet PO 80 mg DAILY IVAN Administration Famotidine 20 mg 11/02/20 09:00 11/04/20 09:04 Famotidine/Pf 20 Mg/2 Ml Vial IVPUSH 20 mg DAILY IVAN Administration Fenofibrate 134 mg 11/02/20 09:00 11/04/20 09:03 Fenofibrate,Micronized 134 Mg Capsule PO 134 mg DAILY IVAN Administration Hydromorphone HCl 1 mg 11/02/20 10:47 11/04/20 10:23 Hydromorphone Hcl 1 Mg/Ml Syringe IVPUSH 1 mg Q4H PRN Administration severe pain Protocol Dextrose/Lactated Ringer's 1,000 mls @ 175 mls/hr 11/02/20 14:45 11/04/20 11:57 D5lr IVCONT 175 mls/hr .Q5H43M IVAN Administration Ondansetron HCl 4 mg 11/01/20 17:27 11/04/20 10:23 Ondansetron Hcl 4 Mg/2 Ml Vial IVPUSH 4 mg Q8H PRN Administration Nausea and Vomiting Pharmacy Consult 1 each 11/01/20 15:48 Consult Rx Perform Med Rec MISCELLANE ONCE PRN Consult order Sodium Chloride 3 ml 11/02/20 00:00 11/04/20 09:03 0.9 % Sodium Chloride Flush 3 Ml Syringe IVFLUSH 3 ml QSHIFT IVAN Administration Labs CBC & Chem 7: 11/04/20 06:07 11/04/20 06:07 Labs: Laboratory Results - last 24 hr 08/15/21 08/15/21 08/15/21 16:05 18:12 20:03 MCV MCH MCHC RDW Plt Count MPV Immature Gran % (Auto) Neut % (Auto) Lymph % (Auto) [place] % (Auto) Eos % (Auto) Baso % (Auto) Lymph # (Auto) [place] # (Auto) Eos # (Auto) Baso # (Auto) Abs Immat Gran (auto) Absolute Neuts (auto) Absolute Nucleated RBC Nucleated RBC % (auto) Anion Gap Estim Creat Clear Calc Estimated GFR POC Glucose 142 H 119 H Random Glucose Calcium Triglycerides 1050 Lipase 11/03/20 11/04/20 11/04/20 23:32 03:18 06:07 MCV 74.6 L MCH 24.4 L MCHC 32.8 RDW 16.8 H Plt Count 199 MPV 10.2 Immature Gran % (Auto) 1.3 H Neut % (Auto) 77.7 H Lymph % (Auto) 13.8 L [place] % (Auto) 5.1 Eos % (Auto) 1.7 Baso % (Auto) 0.4 Lymph # (Auto) 1.5 [place] # (Auto) 0.6 Eos # (Auto) 0.2 Baso # (Auto) 0.0 Abs Immat Gran (auto) 0.14 H Absolute Neuts (auto) 8.5 H Absolute Nucleated RBC 0.000 Nucleated RBC % (auto) 0.0 Anion Gap Estim Creat Clear Calc Estimated GFR POC Glucose 133 H 112 Random Glucose Calcium Triglycerides Lipase 11/04/20 11/04/20 06:07 06:07 MCV MCH MCHC RDW Plt Count MPV Immature Gran % (Auto) Neut % (Auto) Lymph % (Auto) [place] % (Auto) Eos % (Auto) Baso % (Auto) Lymph # (Auto) [place] # (Auto) Eos # (Auto) Baso # (Auto) Abs Immat Gran (auto) Absolute Neuts (auto) Absolute Nucleated RBC Nucleated RBC % (auto) Anion Gap 14 Estim Creat Clear Calc 189.0 Estimated GFR > 60 POC Glucose Random Glucose 107 Calcium 7.7 L D Triglycerides 955 Lipase 178 H Quality Stroke Does the patient have a stroke diagnosis?: No VTE Prior VTE?: No VTE Risk Level:: Medical - moderate - high VTE Device Contraindication: N/A - Device Ordered VTE Drug Contraindication: Treatment Not Indicated
[2020-11-04 15:12] VITALS: BP 125/80; PULSE 52; RESP 20; TEMP 36.7; O2SAT 94
[2020-11-04 16:10] LABS: Glucose, Whole Blood 139 mg/dL (60-115)
[2020-11-04 19:15] VITALS: BP 103/57; PULSE 80; RESP 20; TEMP 36.2; O2SAT 96
[2020-11-04 19:55] LABS: Glucose, Whole Blood 107 mg/dL (60-115)
[2020-11-04 23:55] VITALS: BP 144/73; PULSE 98; RESP 17; TEMP 36.7; O2SAT 96
[2020-11-05] VITALS (7 sets, daily range): BP systolic 126–145; BP diastolic 76–92; PULSE 89–100; RESP 17–21; TEMP 36.5–37.2; O2SAT 93–97
[2020-11-05 00:04] LABS: Glucose, Whole Blood 116 mg/dL (60-115)
[2020-11-05] MEDS: HYDROmorphone HCl 1 MG/ML SYRINGE IVPUSH ×6 (00:42→22:50)
[2020-11-05] MEDS: Dextrose 5 % and Lactated Ring 1,000 ML 175 ML IVCONT ×3 (01:46→13:15)
[2020-11-05 03:55] LABS: Glucose, Whole Blood 117 mg/dL (60-115)
[2020-11-05 07:29] LABS: Triglycerides 703 mg/dL
[2020-11-05 08:11] LABS: Glucose, Whole Blood 125 mg/dL (60-115)
--- NOTE | 2020-11-05 08:18 | MHC.CM.PN ---
at this time dc remains the same, for patient to return home c her and family. cm to cont. to follow.
[2020-11-05] MEDS: Fenofibrate,Micronized 134 MG CAPSULE PO (09:37)
[2020-11-05] MEDS: Famotidine/PF 20 MG/2 ML VIAL IVPUSH (09:37)
[2020-11-05] MEDS: Atorvastatin Calcium 80 MG TABLET PO (09:37)
[2020-11-05 11:00] LABS: Glucose Urine UA NEG (NEG); Leukocyte Esterase Urine NEG (NEG); Nitrite Urine NEG (NEG); UACC Culture Trigger NO; Urine Blood TRACE (NEG); Urine Ketones NEG (NEG); Urine Protein NEG (NEG-TRACE)
[2020-11-05 11:10] LABS: Appearance Urine CLEAR; Color Urine STRAW
--- NOTE | 2020-11-05 11:14 | P.PNIM_ITS ---
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 Persistent abdominal pain and nausea slowly improving Lipase trending down, triglyceride trending down, goal of triglyceride less than 500 Continue Dilaudid 1 mg?Q5h advance diet as tolerated Hypertriglyceridemia familial will need strict diet /fibrate and Lipitor Trending down Nutrition consult for hypertriglyceridemia DVT prophylaxis with compression boots and ambulation Subjective Subjective Date of Service: 11/05/20 Interval History: Follow up pancreatitis feeling better today still with some mild nausea and back pain Physical Exam Vital Signs: Vital Signs: Last Vital Signs Temp 97.7 F 11/05/20 11:08 Pulse 98 11/05/20 11:08 Resp 18 11/05/20 11:08 BP 128/84 11/05/20 11:08 Pulse Ox 95 11/05/20 11:08 Oxygen Flow Rate 2 11/02/20 02:10 Body Mass Index 79.0 Appearing in no acute distress lung sounds are clear to auscultation heart regular rate rhythm, clear S1, S2 positive bowel sounds, abdomen is soft, nontender neuro patient is alert x3, no focal deficits Objective Data Current Medications Generic Name Dose Route Start Last Admin Trade Name Freq PRN Reason Stop Dose Admin Acetaminophen 650 mg 11/01/20 17:27 11/04/20 09:03 Acetaminophen 325 Mg Tablet PO 650 mg Q6H PRN Administration Pain, Mild (Pain Scale 1-3) Atorvastatin Calcium 80 mg 11/02/20 09:00 11/05/20 09:37 Atorvastatin Calcium 80 Mg Tablet PO 80 mg DAILY IVAN Administration Famotidine 20 mg 11/02/20 09:00 11/05/20 09:37 Famotidine/Pf 20 Mg/2 Ml Vial IVPUSH 20 mg DAILY IVAN Administration Fenofibrate 134 mg 11/02/20 09:00 11/05/20 09:37 Fenofibrate,Micronized 134 Mg Capsule PO 134 mg DAILY IVAN Administration Hydromorphone HCl 1 mg 11/02/20 10:47 11/05/20 09:37 Hydromorphone Hcl 1 Mg/Ml Syringe IVPUSH 1 mg Q4H PRN Administration severe pain Protocol Dextrose/Lactated Ringer's 1,000 mls @ 175 mls/hr 11/02/20 14:45 11/05/20 09:36 D5lr IVCONT Not Given .Q5H43M [facility] Ondansetron HCl 4 mg 11/01/20 17:27 11/04/20 10:23 Ondansetron Hcl 4 Mg/2 Ml Vial IVPUSH 4 mg Q8H PRN Administration Nausea and Vomiting Pharmacy Consult 1 each 11/01/20 15:48 Consult Rx Perform Med Rec MISCELLANE ONCE PRN Consult order Sodium Chloride 3 ml 11/02/20 00:00 11/05/20 09:36 0.9 % Sodium Chloride Flush 3 Ml Syringe IVFLUSH Not Given QSHIFT [facility] Labs CBC & Chem 7: 11/04/20 06:07 11/04/20 06:07 Labs: Laboratory Results - last 24 hr 11/04/20 11/04/20 11/05/20 16:07 19:51 00:00 POC Glucose 139 H 107 116 H Triglycerides Urine Color Urine Appearance Urine pH Ur Specific [place] Urine Protein Urine Glucose (UA) Urine Ketones Urine Blood Urine Nitrite Ur Leukocyte Esterase 11/05/20 11/05/20 11/05/20 03:45 06:15 08:07 POC Glucose 117 H 125 H Triglycerides 703 Urine Color Urine Appearance Urine pH Ur Specific [place] Urine Protein Urine Glucose (UA) Urine Ketones Urine Blood Urine Nitrite Ur Leukocyte Esterase 11/05/20 10:50 POC Glucose Triglycerides Urine Color STRAW Urine Appearance CLEAR Urine pH 7.0 Ur Specific [place] 1.010 Urine Protein NEG Urine Glucose (UA) NEG Urine Ketones NEG Urine Blood TRACE Urine Nitrite NEG Ur Leukocyte Esterase NEG Quality Stroke Does the patient have a stroke diagnosis?: No VTE Prior VTE?: No VTE Risk Level:: Medical - moderate - high VTE Device Contraindication: N/A - Device Ordered VTE Drug Contraindication: Treatment Not Indicated
[2020-11-05 11:15] LABS: Bacteria Urine TRACE /LPF; RBC Urine 0-2 /HPF (0); Squamous Epithelial Cell Urine 1+ /LPF; WBC Urine 0-2 /HPF (0-4)
[2020-11-05 12:15] LABS: Glucose, Whole Blood 99 mg/dL (60-115)
[2020-11-05] MEDS: ondansetron HCL 4 MG/2 ML VIAL IVPUSH (13:17)
[2020-11-05 16:11] LABS: Glucose, Whole Blood 122 mg/dL (60-115)
[2020-11-05] MEDS: 0.9 % Sodium Chloride Flush 3 ML SYRINGE IVFLUSH ×2 (17:47→20:15)
[2020-11-05 20:01] LABS: Glucose, Whole Blood 108 mg/dL (60-115)
[2020-11-05] MEDS: Acetaminophen 325 MG TABLET 650 MG PO (21:34)
[2020-11-05 23:53] LABS: Glucose, Whole Blood 106 mg/dL (60-115)
[2020-11-06 04:00] VITALS: BP 154/94; PULSE 98; RESP 20; TEMP 36.7; O2SAT 95
[2020-11-06 04:16] LABS: Glucose, Whole Blood 106 mg/dL (60-115)
[2020-11-06 07:16] LABS: Triglycerides 707 mg/dL
[2020-11-06 07:37] VITALS: BP 124/66; PULSE 84; RESP 20; TEMP 36.7; O2SAT 97
[2020-11-06 07:42] LABS: Glucose, Whole Blood 102 mg/dL (60-115)
[2020-11-06] MEDS: Fenofibrate,Micronized 134 MG CAPSULE PO (08:24)
[2020-11-06] MEDS: Famotidine/PF 20 MG/2 ML VIAL IVPUSH (08:24)
[2020-11-06] MEDS: Atorvastatin Calcium 80 MG TABLET PO (08:24)
[2020-11-06] MEDS: HYDROmorphone HCl 1 MG/ML SYRINGE IVPUSH ×4 (08:25→23:19)
[2020-11-06] MEDS: 0.9 % Sodium Chloride Flush 3 ML SYRINGE IVFLUSH ×3 (08:25→23:20)
--- NOTE | 2020-11-06 10:54 | PM.IMPN ---
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 right flank pain, neg UA, check right renal us to r/o stone Lipase trending down, triglyceride trending down, goal of triglyceride less than 500 Continue Dilaudid 1 mg?Q5h as needed advanced to regular diet Hypertriglyceridemia familial will need strict diet /fibrate and Lipitor Trending down Nutrition consult for hypertriglyceridemia DVT prophylaxis with compression boots and ambulation Subjective Subjective Date of Service: 11/06/20 Interval History: Follow up pancreatitis right flank pain still with diarrhea advancing diet Physical Exam Vital Signs: Vital Signs: Last Vital Signs Temp 98.0 F 11/06/20 07:37 Pulse 84 11/06/20 07:37 Resp 20 11/06/20 07:37 BP 124/66 11/06/20 07:37 Pulse Ox 97 11/06/20 07:37 Oxygen Flow Rate 2 11/02/20 02:10 Body Mass Index 79.0 Appearing in no acute distress lung sounds are clear to auscultation heart regular rate rhythm, clear S1, S2 positive bowel sounds, abdomen is soft, nontender, right flank pain on palpation neuro patient is alert x3, no focal deficits Objective Data Current Medications Generic Name Dose Route Start Last Admin Trade Name Freq PRN Reason Stop Dose Admin Acetaminophen 650 mg 11/01/20 17:27 11/05/20 21:34 Acetaminophen 325 Mg Tablet PO 650 mg Q6H PRN Administration Pain, Mild (Pain Scale 1-3) Atorvastatin Calcium 80 mg 11/02/20 09:00 11/06/20 08:24 Atorvastatin Calcium 80 Mg Tablet PO 80 mg DAILY IVAN Administration Famotidine 20 mg 11/02/20 09:00 11/06/20 08:24 Famotidine/Pf 20 Mg/2 Ml Vial IVPUSH 20 mg DAILY IVAN Administration Fenofibrate 134 mg 11/02/20 09:00 11/06/20 08:24 Fenofibrate,Micronized 134 Mg Capsule PO 134 mg DAILY IVAN Administration Hydromorphone HCl 1 mg 11/02/20 10:47 11/06/20 08:25 Hydromorphone Hcl 1 Mg/Ml Syringe IVPUSH 1 mg Q4H PRN Administration severe pain Protocol Ondansetron HCl 4 mg 11/01/20 17:27 11/05/20 13:17 Ondansetron Hcl 4 Mg/2 Ml Vial IVPUSH 4 mg Q8H PRN Administration Nausea and Vomiting Pharmacy Consult 1 each 11/01/20 15:48 Consult Rx Perform Med Rec MISCELLANE ONCE PRN Consult order Sodium Chloride 3 ml 11/02/20 00:00 11/06/20 08:25 0.9 % Sodium Chloride Flush 3 Ml Syringe IVFLUSH 3 ml QSHIFT IVAN Administration Labs CBC & Chem 7: 11/04/20 06:07 11/04/20 06:07 Labs: Laboratory Results - last 24 hr 11/05/20 11/05/20 11/05/20 10:50 12:12 16:07 POC Glucose 99 122 H Triglycerides Urine Color STRAW Urine Appearance CLEAR Urine pH 7.0 Ur Specific [place] 1.010 Urine Protein NEG Urine Glucose (UA) NEG Urine Ketones NEG Urine Blood TRACE Urine Nitrite NEG Ur Leukocyte Esterase NEG Urine RBC 0-2 Urine WBC 0-2 Ur Squamous Epith Cells 1+ Urine Bacteria TRACE 11/05/20 11/05/20 11/06/20 19:57 23:49 04:12 POC Glucose 108 106 106 Triglycerides Urine Color Urine Appearance Urine pH Ur Specific [place] Urine Protein Urine Glucose (UA) Urine Ketones Urine Blood Urine Nitrite Ur Leukocyte Esterase Urine RBC Urine WBC Ur Squamous Epith Cells Urine Bacteria 11/06/20 11/06/20 05:40 07:38 POC Glucose 102 Triglycerides 707 Urine Color Urine Appearance Urine pH Ur Specific [place] Urine Protein Urine Glucose (UA) Urine Ketones Urine Blood Urine Nitrite Ur Leukocyte Esterase Urine RBC Urine WBC Ur Squamous Epith Cells Urine Bacteria Quality Stroke Does the patient have a stroke diagnosis?: No VTE Prior VTE?: No VTE Risk Level:: Medical - moderate - high VTE Device Contraindication: N/A - Device Ordered VTE Drug Contraindication: Treatment Not Indicated
[2020-11-06 11:25] VITALS: BP 161/83; PULSE 85; RESP 20; TEMP 36.4; O2SAT 94
--- NOTE | 2020-11-06 14:40 | MHC.CM.PN ---
Female 45 DX Acute Pancreatitis. DP home no services family will provide transport. Diet is being advanced.
[2020-11-06 15:09] VITALS: BP 132/78; PULSE 82; RESP 20; TEMP 36.7; O2SAT 96
[2020-11-06 19:10] VITALS: BP 155/83; PULSE 93; RESP 20; TEMP 36.1; O2SAT 96
[2020-11-06 23:37] VITALS: BP 148/77; PULSE 77; RESP 18; TEMP 37.1; O2SAT 95
--- NOTE | 2020-11-07 00:44 | PM.EVENT ---
Event Note Date of Service: 11/07/20 Event Note: Called by the nurse, patient having diarrhea today and yesterday, more than 10 diarrhea events day. Briefly looked in the patient's chart, the patient does have a history of chronic constipation. She has been hospitalized here for more than 3 days, and now is having diarrhea events. I do not see that she has been giving any antibiotics recently. There is concerned however about Clostridium difficile. Therefore I ordered the following: -C difficile PCR lab -isolation precautions Morning team to follow-up on this
[2020-11-07 01:56] LABS: CDiff Gene PCR NEGATIVE (Negative)
[2020-11-07 04:00] VITALS: BP 158/93; PULSE 91; RESP 20; TEMP 37; O2SAT 95
[2020-11-07] MEDS: HYDROmorphone HCl 1 MG/ML SYRINGE IVPUSH (05:32)
[2020-11-07 07:11] LABS: Triglycerides 725 mg/dL
[2020-11-07 07:25] VITALS: BP 121/65; PULSE 76; RESP 20; TEMP 36.6; O2SAT 95
[2020-11-07] MEDS: Famotidine/PF 20 MG/2 ML VIAL IVPUSH (09:48)
[2020-11-07] MEDS: 0.9 % Sodium Chloride Flush 3 ML SYRINGE IVFLUSH (09:48)
[2020-11-07] MEDS: Fenofibrate,Micronized 134 MG CAPSULE PO (09:48)
[2020-11-07] MEDS: Atorvastatin Calcium 80 MG TABLET PO (09:48)
[2020-11-07] MEDS: oxyCODONE HCl Immed Release 5 MG TABLET PO (09:55)
--- NOTE | 2020-11-07 09:58 | MHC.CLN ---
RE: CONSULT: REVIEWED FOODS THAT CAUSED ELEVATED TRIGS. PT REPORTED SHE STOPPED DRINKING ETOH YEARS AGO. PT DOES SAYS SHE EATS WHITE RICE EVERYDAY. RECOMMEND TO SWITCH TO BROWN FOODS I.E. BROWN RICE, WHEAT BREAD, SWEET POTATO AND AVOID SWEETS. PT REPORTS 3RD VISIT TO HOSPITAL FOR ELEVATED TRIGS-RECOMMEND REFERRAL TO OUT [facility] [address] FOR FURTHER FOLLOW UP SEE TEACHING RECORD
[2020-11-07 11:11] VITALS: BP 131/83; PULSE 85; RESP 20; TEMP 36.6; O2SAT 96
--- NOTE | 2020-11-07 11:21 | P.DS_ITS ---
DS: Providers Provider Date of Service: 11/07/20 Date of admission: 11/01/20 17:22 Primary care physician: Jojo Seymour MD DS: Diagnosis Discharge Diagnosis (1) Pancreatitis: Status: Acute DS: Medications Discharge Medications Home Medications: Previous Rx's Medication Instructions Recorded atorvastatin 80 mg tablet 80 mg PO DAILY 90 Days #90 tab 05/21/20 fenofibrate micronized 134 mg 134 mg PO DAILY #30 cap 05/21/20 capsule DS: Summary Hospital Course Hospital Course: History of presenting illness CHIEF COMPLAINT:? Abdominal pain. ? HISTORY OF PRESENTING ILLNESS:? This is a 45-year-old female patient with past medical history significant for recurrent pancreatitis due to hypertriglyceridemia, presented to emergency room with 1-day history of diffuse abdominal pain associated with nausea and generalized weakness.? She denies any associated vomiting, diarrhea.? No fever, no chills.? She denies any fatty food or fried food.? She has been following a low-fat diet, had smoothie yesterday, and has been compliant with her statins including Lipitor and fenofibrate.? The patient's workup in the emergency room revealed an elevated lipase of 780 and a triglyceride of 663.? WBCs 14,000, hematocrit is stable.? Electrolytes, renal function is stable, normal bicarb, normal LFTs.? An imaging study showed an acute pancreatitis without drainable fluid collection.? No evidence of devitalized parenchyma.? There is no significant free fluid collection noted.? The patient has hepatosplenomegaly and fatty infiltration of liver.? The patient treated in the emergency room with IV fluids, analgesics, but due to persistent pain and acute pancreatitis, she is being admitted to [facility]. ? PAST MEDICAL HISTORY:? Significant for, 1. Recurrent pancreatitis related to hypertriglyceridemia. 2. History of anemia. 3. History of chronic idiopathic constipation. 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 Patient noted to have diarrhea, C diff toxin is negative, likely due to acute pancreatitis, recommended low-fat low residue diet. Time Spent with Patient Time attestation: Total time spent providing and/or coordinating discharge services: Discharge coordination time: Greater than 30 minutes Quality: Stroke Does the patient have a stroke diagnosis?: No Physical Exam Vital Signs: Vital Signs: Last Vital Signs Temp 97.8 F 11/07/20 11:11 Pulse 85 11/07/20 11:11 Resp 20 11/07/20 11:11 BP 131/83 11/07/20 11:11 Pulse Ox 96 11/07/20 11:11 Oxygen Flow Rate 2 11/02/20 02:10 Body Mass Index 79.0 General?no acute distress Neck supple, no JVD. CVS? regular, rate, rhythm, Respiratory lungs clear to auscultation, no respiratory distress, no wheeze, no rhonchi. Gastrointestinal abdomen nontender, bowel sounds audible, soft, no guarding , no rigidity, no distension. Extremities no edema. Neuro nonfocal . Skin no rash DS: Data Data Completed and Pending Labs on day of discharge: Laboratory Results - last 24 hr 11/07/20 11/07/20 05:36 Unknown Triglycerides 725 C. difficile Tox B Gene NEGATIVE Discharge Plan Discharge Patient Disposition: Home, Self-Care Discharge Diagnosis: Acute recurrent pancreatitis Hypertriglyceridemia Referrals: Jojo Seymour MD [Primary Care Provider] - 1 Week Discharge Medications: Continued fenofibrate micronized 134 mg Capsule 134 mg PO DAILY Qty: 30 RF: 2 atorvastatin 80 mg tablet 80 mg PO DAILY 90 Days Qty: 90 RF: 3 Discharge Orders: Discharge Order (Routine); Ordered 11/07/20 Ordered By: Stephane Paz Diet: low fat, low cholesterol Activity on Discharge: As tolerated Stand Alone Forms: Patient Portal Discharge page Care Plan Goals: Follow low fat diet Health Concerns: Hyper triglyceridemia Plan of Treatment: Outpatient follow-up with primary care physician and need referral to endocrinology for hypertriglyceridemia Assessment: As above
--- NOTE | 2020-11-07 11:24 | MHC.CM.PN ---
Female 45 DX Acute pancreatitis Is discharged to home today. No services ordered. Family is providing transportation.
[2020-11-07] MEDS: Loperamide HCl 2 MG CAPSULE 4 MG PO (11:44)
== END 2020-11-07 12:25 | disposition home or self-care (01) | DRG 282 ==
LOC: HO.ED 11:01 → HO.IMC 17:50
PROVIDERS: Family Medicine; Internal Medicine; Nurse Practitioner Acute Care; Physician Assistant; Admitting Provider Hospitalist; Emergency Provider Emergency Medicine; PCP Internal Medicine; Visit Provider Hospitalist
DX: K85.80 Other acute pancreatitis without necrosis or infection (principal); E78.1 Pure hyperglyceridemia; K59.04 Chronic idiopathic constipation; R19.7 Diarrhea, unspecified; Z20.822 Contact with and (suspected) exposure to COVID-19; Z79.899 Other long term (current) drug therapy
CPT/HCPCS: 36415; 74177; 76775; 80048; 80053; 81001; 81003; 81025; 82040; 82947; 83690; 84478; 85025; 87493; 87635; 96374; 96375; 96376; 99285; J1170; J2270; J2405; Q9967

== ENCOUNTER → 2020-11-19 15:26 | Outpatient (BNVA) | payer OTHER, SELFPAY | PROVIDERS: PCP Internal Medicine; Visit Provider Nurse Practitioner Family | DX: K59.04 Chronic idiopathic constipation (principal); K58.9 Irritable bowel syndrome, unspecified; R14.0 Abdominal distension (gaseous); D64.9 Anemia, unspecified; E78.5 Hyperlipidemia, unspecified; E78.1 Pure hyperglyceridemia; Z88.8 Allergy status to other drugs, medicaments and biological substances; Z87.19 Personal history of other diseases of the digestive system | CPT/HCPCS: 99212 ==

== ENCOUNTER 2020-11-20 08:33 | Outpatient (REF) | payer OTHER, SELFPAY ==
[2020-11-20 09:11] LABS: Hematocrit 34.9 % (37-47); Hemoglobin 11.4 g/dl (12.0-16.0); Mean Corpuscular HGB Conc 32.7 g/dl (31.0-35.0); Mean Corpuscular Hemoglobin 24.5 pg (27.0-33.0); Mean Corpuscular Volume 74.9 fL (80-98); Mean Platelet Volume 9.8 fL (9.4-12.3); Platelet Count 327 X10*3/uL (160-400); Red Blood Count 4.66 X10*6/uL (4.20-5.50); White Blood Count 5.9 X10*3/uL (4.8-10.8)
[2020-11-20 09:38] LABS: C Reactive Protein 0.32 mg/dL (< or = 0.50); Lipase 102 U/L (8-78)
[2020-11-20 09:59] LABS: TSH reflex Free T4 1.17 uIU/mL (0.32-4.0)
[2020-11-22 21:41] LABS: Transglutaminase Ab IgG 2 U/mL; Transglutaminase IgA 1 U/mL
== END 2020-11-20 08:34 | disposition home or self-care (01) ==
LOC: HO.LAB 08:33
PROVIDERS: Visit Provider Nurse Practitioner Family
DX: Z12.11 Encounter for screening for malignant neoplasm of colon (principal); K58.9 Irritable bowel syndrome, unspecified; R14.0 Abdominal distension (gaseous); D64.9 Anemia, unspecified; Z87.19 Personal history of other diseases of the digestive system
CPT/HCPCS: 36415; 83516; 83690; 84443; 85027; 86140

== ENCOUNTER 2020-11-29 09:54 | Outpatient (REF) | payer OTHER, SELFPAY ==
--- NOTE | ~2020-11-29 | MM_ITS ---
EXAMINATION: MM SCREENING DIGITAL BREAST TOMOSYNTHESIS, BILATERAL CLINICAL INFORMATION: Screening. Asymptomatic. The lifetime risk of breast cancer based on the Tyrer-Cuzick Model is 8%. COMPARISON: Mammography: 11/28/2019, 05/31/2018, 05/25/2017 TECHNIQUE: Digital breast tomosynthesis is performed in both the craniocaudal and mediolateral oblique views along with computer-aided detection (CAD). Synthesized 2D images are generated from the tomosynthesis. FINDINGS: There are scattered areas of fibroglandular density (ACR BI-RADS breast composition Category b). There are no significant masses, abnormal calcifications, or other abnormalities. There are benign regional round, rim, and predominantly dermal calcifications posterior upper left breast again noted. No significant changes. MM/MM tomosynthesis screening BI IMPRESSION: No mammographic evidence of malignancy. ASSESSMENT: BI-RADS 2: Benign RECOMMENDATION: Routine annual mammography screening. This patient's information was entered into a reminder system with a target due date for their next mammogram.
== END 2020-11-29 09:55 | disposition home or self-care (01) ==
LOC: HO.MAMMO 09:54
PROVIDERS: Visit Provider Internal Medicine
DX: Z12.31 Encounter for screening mammogram for malignant neoplasm of breast (principal)
CPT/HCPCS: 77063; 77067

== ENCOUNTER → 2021-05-14 12:43 | Outpatient (REF) | payer OTHER, SELFPAY ==
--- NOTE | 2021-05-14 12:54 | ECG_ITS ---
Hook-up date: 2021-05-14 13:10:00 Duration: 23:41:00 Test Indications: PALPITATIONS Medications: 224321 QRS complexes * Ventricular ectopics which represent % of total QRS comp. 8 Supraventricular ectopics which represent <1 % of total QRS comp. * Paced QRS complexs which represent % of total QRS comp. VENTRICULAR ECTOPY * Isolated * Bigeminal Cycles * Couplets * Runs * Beats in Runs * Beats LONGEST at * BPM at :: -- * Beats FASTEST at * BPM at :: -- SUPRAVENTRICULAR ECTOPY 8 Isolated 0 Couplets 0 Runs 0 Beats in Runs * Beats LONGEST at * BPM at :: -- * Beats FASTEST at * BPM at :: -- HEART RATES 63 MIN at 03:47:22 2021-05-15 86 AVG 144 MAX at 07:07:28 2021-05-15 LONGEST RR 0.9760 secs at 03:25:21 2021-05-15 S-T LEVELS Channel 1 - 128 mm at 13:10:00 2021-05-14 - 128 mm at 13:10:00 2021-05-14 Channel 2 - 128 mm at 13:10:00 2021-05-14 - 128 mm at 13:10:00 2021-05-14 Channel 3 - 128 mm at 03:22:91 -- - 128 mm at 03:22:91 Underlying rhythm is sinus; Average ventricular rate 86/min; range 63-144/min; About 15% of the time, rate >100/min; Very rare supraventricular ectopy; No sustained arrhythmias. Referred By: Madeline Tate Overread By: HALI DAUGHERTY
== END ==
LOC: HO.CARD 12:43
PROVIDERS: Visit Provider Family Medicine
DX: R00.2 Palpitations (principal)
CPT/HCPCS: 93225; 93226

== ENCOUNTER 2021-06-11 09:39 | Outpatient (REF) | payer OTHER, SELFPAY ==
--- NOTE | 2021-06-11 09:43 | EMG_ITS ---
This is a 46-year-old woman with right lower extremity numbness. Her neurological examination is normal. IMPRESSION: Rule out peripheral neuropathy. Nerve conduction EMG study: Normal electrodiagnostic study of the right lower extremity with no evidence of nerve entrapment or generalized peripheral neuropathy. Normal EMG of the right L4-S1 innervated muscles. MD MARIA ESTHER Ahuja/AMANDA / [phone]
== END 2021-06-11 09:40 | disposition home or self-care (01) ==
LOC: HO.NEURO 09:39
PROVIDERS: Visit Provider Family Medicine
DX: R20.0 Anesthesia of skin (principal)
CPT/HCPCS: 95885; 95909

== ENCOUNTER 2021-09-01 13:55 | Emergency (ER) | payer MEDICAID, SELFPAY ==
[2021-09-01 14:33] VITALS: BP 147/86; PULSE 97; RESP 18; TEMP 36.6; O2SAT 99; BMI 35.4
--- NOTE | 2021-09-01 14:39 | PC.NURSE ---
ldh and lipase ordered after consulting with mary jane mckenzie
[2021-09-01 16:33] LABS: Alanine Aminotransferase 14 U/L (0-31); Alkaline Phosphatase 73 U/L (39-117); Anion Gap 15 (12-20); Aspartate Amino Transferase 14 U/L (5-31); Bilirubin Total 0.5 mg/dL (0.0-1.0); Blood Urea Nitrogen 15 mg/dL (9-16); Calcium 8.8 mg/dL (8.4-10.2); Carbon Dioxide 22 mmol/L (22-29); Chloride 100 mmol/L (96-108); Creatinine Clr Calc Pharmacy 90.4; Estimated Glomerular Filt Rate > 60; Glucose Random 117 mg/dL (60-115); Potassium 3.9 mmol/L (3.3-5.1); Sodium 133 mmol/L (135-145)
[2021-09-01 17:30] LABS: Basophils Absolute Auto 0.1 X10*3/uL (0.0-0.2); Basophils Percent Auto 0.3 % (0-2); Eosinophils Absolute Auto 0.1 X10*3/uL (0.0-0.4); Eosinophils Percent Auto 0.3 % (0-4); Hematocrit 32.9 % (37.0-47.0); Imm Gran Abs Auto 0.07 X10*3/uL (0.00-0.03); Imm Gran Pct Auto 0.4 % (0.0-0.4); Lymphocytes Absolute Auto 2.2 X10*3/uL (1.2-4.9); Lymphocytes Percent Auto 12.4 % (20-40); Mean Corpuscular Volume 73.3 fL (80.0-98.0); Mean Platelet Volume 9.5 fL (9.4-12.3); Monocytes Absolute Auto 0.5 X10*3/uL (0.1-1.2); Neutrophils Absolute Auto 14.5 x10*3/uL (2.0-8.3); Neutrophils Percent Auto 83.6 % (45-73); Platelet Count 255 X10*3/uL (160-400); Red Blood Count 4.49 X10*6/uL (4.20-5.50); Red Cell Distribution Width 15.4 % (11.0-16.0); SCAN SMEAR FLAG 1; White Blood Count 17.4 X10*3/uL (4.8-10.8)
[2021-09-01 17:31] LABS: Mean Corpuscular HGB Conc 33.6 g/dl (31.0-35.0); Mean Corpuscular Hemoglobin 24.5 pg (27.0-33.0)
[2021-09-01 17:32] LABS: MANUAL DIFF FLAG NO
--- NOTE | 2021-09-01 22:04 | ED_ITS ---
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 lipids MD elicited complaint: abdominal pain Pertinent past history: other (pancreatitis) Onset (ago): day(s) Pain Consistency: constant Location: diffuse Severity: moderate Radiation: back Exacerbating factors: nothing Relieving factors: nothing Associated symptoms: nausea and vomiting Related Data Home Medications Medication Instructions Recorded Confirmed docusate sodium 100 mg capsule 100 mg PO DAILY PRN 11/19/20 psyllium husk (sweetleaf) 3.5 gram 1 packet PO DAILY 11/19/20 oral powder packet (Konsyl Daily Fiber (stevia)) sennosides 8.6 mg tablet (senna) 8.6 mg PO DAILY PRN constipation 11/19/20 Previous Rx's Medication Instructions Recorded atorvastatin 80 mg tablet 80 mg PO DAILY 90 days #90 tabs 05/21/20 fenofibrate micronized 134 mg 134 mg PO DAILY #30 caps 05/21/20 capsule linaclotide 145 mcg capsule 145 mcg PO DAILY #30 caps 11/19/20 (Linzess) ondansetron 4 mg disintegrating 4 mg PO Q8H 4 days #12 tabs 09/02/21 tablet pantoprazole 40 mg tablet,delayed 40 mg PO DAILY #20 tabs 09/02/21 release (Protonix) Allergies Allergy/AdvReac Type Severity Reaction Status Date / Time fenofibrate AdvReac Mild nausea Verified 09/01/21 14:32 tired pravastatin AdvReac Unknown nausea, Verified 09/01/21 14:32 tired Review of Systems Constitutional: Reports no additional constitutional complaints Eyes: Reports no additional eye complaints Denies dizziness Cardiovascular: Reports no additional cardiovascular complaints Respiratory: Reports as per HPI Gastrointestinal: Reports no additional gastrointestinal complaints Genitourinary: Reports no additional female genitourinary complaints Musculoskeletal: Reports no additional musculoskeletal complaints Skin/Breast: Denies rash Reports system reviewed and no additional complaints, except as documented, Denies dizziness and Denies Sensory deficit (Neuro) Psychiatric: Denies anxiety PMFSH Past Medical History Medical History Chronic idiopathic constipation Surgical History S/P cholecystectomy Family History Family History Father Hypertension Dyslipidemia Pancreatitis, recurrent Mother Hypertension Diabetes Acute CVA (cerebrovascular accident) Maternal Grandmother Uterine cancer Renal failure Maternal Grandfather CAD (coronary artery disease) Maternal Uncle Myocardial infarction Social History Social History Household Members: Family Housing: House Do you presently have visiting nurse or other home services: No Unable to assess alcohol history related to: Unknown Alcohol intake: never Patient Tobacco Use Status: Never used Tobacco Advance Directives: No Advance Directives Information Provided: No service: No Current occupational status: employed 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 Physical Exam ED Vital Signs: Vital Signs - 24 hr 09/01/21 14:33 09/01/21 22:38 09/02/21 00:16 Temperature 97.8 F 98.2 F Pulse Rate 97 89 89 Respiratory Rate 18 16 18 Blood Pressure 147/86 H 146/89 H 143/89 H Pulse Oximetry 99 97 99 Oxygen Delivery Method Room Air Room Air Room Air 09/02/21 02:27 Temperature Pulse Rate 88 Respiratory Rate 20 Blood Pressure 124/61 Pulse Oximetry 95 Oxygen Delivery Method Room Air BMI result Body Mass Index 35.4 Const Other: female pacing in pain Nutritional Appearance: obese Orientation/consciousness: oriented to person and patient oriented x3 Limitations: no limitations HENMT Head: Yes normal to inspection Ears: external ears normal General nose exam: Normal external nose present Mouth: Normal oral and palatal mucosa present and oropharynx normal Throat: Yes posterior oropharynx normal Eyes General: appearance normal, both eyes and all related structures Neck Neck: Yes normal visual inspection Chest Chest palpation & inspection: normal inspection of the chest Resp Auscultation: clear to auscultation bilaterally Cardio Jugular venous distension: no JVD Rate: regular rate Rhythm: regular rhythm Heart sounds: S1 normal heart sound present and S2 normal heart sound present GI Inspection: Yes normal to inspection Palpation (GI): Soft to palpation, nontender and No hepatosplenomegaly present Auscultation: normal bowel sounds General: Yes no CVA tenderness Back/Spine/Pelvis Back: no CVA tenderness Skin General skin exam: no rashes or lesions noted Neuro General: oriented to person and patient oriented x3 Cranial nerves: Yes CN's II-XII intact bilaterally Motor exam (neuro): 5/5 motor strength present throughout Sensory Exam: No Sensory deficit (Neuro) Extrem General: Yes normal to inspection Psych Appearance: grossly normal Course Reevaluation(s) Reevaluation #1: Patient with mild pancreatitis will dc home on protonix and zofran and have darion dickinson follow up with her doctor Time: 02:41 MDM - Abdominal Pain Lab Data Result diagrams: 09/01/21 15:48 09/01/21 15:48 Labs: Lab Results 09/01/21 09/01/21 09/02/21 Range/Units 15:48 15:48 00:29 WBC 17.4 H (4.8-10.8) X10*3/uL RBC 4.49 (4.20-5.50) X10*6/uL Hgb 11.0 L (12.0-16.0) g/dl Hct 32.9 L (37.0-47.0) % MCV 73.3 L (80.0-98.0) fL MCH 24.5 L (27.0-33.0) pg MCHC 33.6 (31.0-35.0) g/dl RDW 15.4 (11.0-16.0) % Plt Count 255 (160-400) X10*3/uL MPV 9.5 (9.4-12.3) fL Immature Gran % (Auto) 0.4 (0.0-0.4) % Neut % (Auto) 83.6 H (45-73) % Lymph % (Auto) 12.4 L (20-40) % [place] % (Auto) 3.0 (2-11) % Eos % (Auto) 0.3 (0-4) % Baso % (Auto) 0.3 (0-2) % Lymph # (Auto) 2.2 (1.2-4.9) X10*3/uL [place] # (Auto) 0.5 (0.1-1.2) X10*3/uL Eos # (Auto) 0.1 (0.0-0.4) X10*3/uL Baso # (Auto) 0.1 (0.0-0.2) X10*3/uL Abs Immat Gran (auto) 0.07 H (0.00-0.03) X10*3/uL Absolute Neuts (auto) 14.5 H (2.0-8.3) x10*3/uL Absolute Nucleated RBC 0.000 (0.0-0.012) X10*3/uL Nucleated RBC % (auto) 0.0 (0.0-0.2) /100WBC Sodium 133 L (135-145) mmol/L Potassium 3.9 (3.3-5.1) mmol/L Chloride 100 (96-108) mmol/L Carbon Dioxide 22 (22-29) mmol/L Anion Gap 15 (12-20) BUN 15 (9-16) mg/dL Creatinine 0.84 (0.5-1.4) mg/dL Estim Creat Clear Calc 90.4 Estimated GFR > 60 Random Glucose 117 H (60-115) mg/dL Calcium 8.8 D (8.4-10.2) mg/dL Total Bilirubin 0.5 (0.0-1.0) mg/dL AST 14 (5-31) U/L ALT 14 (0-31) U/L Alkaline Phosphatase 73 (39-117) U/L Total Protein 8.0 (6.5-8.0) g/dL Albumin 4.0 D (3.5-5.0) g/dL Triglycerides 8239 mg/dL Cholesterol 1276 mg/dL LDL Cholesterol, Calc TNP HDL Cholesterol 28 mg/dL Lipase 287 H (8-78) U/L Urine Color YELLOW Urine Appearance CLOUDY Urine pH 6.0 (5.0-8.0) Ur Specific [place] >= 1.030 H (1.005-1.025) Urine Protein 2+ H (NEG-TRACE) MG/DL Urine Glucose (UA) NEG (NEG) MG/DL Urine Ketones 5 (NEG) MG/DL Urine Blood 3+ H (NEG) Urine Nitrite POS H (NEG) Ur Leukocyte Esterase TRACE H (NEG) Urine RBC 0-2 (0) /HPF Urine WBC 5-9 H (0-4) /HPF Ur Squamous Epith Cells 3+ /LPF Urine Bacteria 4+ /LPF Urine Mucus 2+ /LPF 09/02/21 Range/Units 01:00 WBC (4.8-10.8) X10*3/uL RBC (4.20-5.50) X10*6/uL Hgb (12.0-16.0) g/dl Hct (37.0-47.0) % MCV (80.0-98.0) fL MCH (27.0-33.0) pg MCHC (31.0-35.0) g/dl RDW (11.0-16.0) % Plt Count (160-400) X10*3/uL MPV (9.4-12.3) fL Immature Gran % (Auto) (0.0-0.4) % Neut % (Auto) (45-73) % Lymph % (Auto) (20-40) % [place] % (Auto) (2-11) % Eos % (Auto) (0-4) % Baso % (Auto) (0-2) % Lymph # (Auto) (1.2-4.9) X10*3/uL [place] # (Auto) (0.1-1.2) X10*3/uL Eos # (Auto) (0.0-0.4) X10*3/uL Baso # (Auto) (0.0-0.2) X10*3/uL Abs Immat Gran (auto) (0.00-0.03) X10*3/uL Absolute Neuts (auto) (2.0-8.3) x10*3/uL Absolute Nucleated RBC (0.0-0.012) X10*3/uL Nucleated RBC % (auto) (0.0-0.2) /100WBC Sodium (135-145) mmol/L Potassium (3.3-5.1) mmol/L Chloride (96-108) mmol/L Carbon Dioxide (22-29) mmol/L Anion Gap (12-20) BUN (9-16) mg/dL Creatinine (0.5-1.4) mg/dL Estim Creat Clear Calc Estimated GFR Random Glucose (60-115) mg/dL Calcium (8.4-10.2) mg/dL Total Bilirubin (0.0-1.0) mg/dL AST (5-31) U/L ALT (0-31) U/L Alkaline Phosphatase (39-117) U/L Total Protein (6.5-8.0) g/dL Albumin (3.5-5.0) g/dL Triglycerides mg/dL Cholesterol mg/dL LDL Cholesterol, Calc HDL Cholesterol mg/dL Lipase 328 H (8-78) U/L Urine Color Urine Appearance Urine pH (5.0-8.0) Ur Specific [place] (1.005-1.025) Urine Protein (NEG-TRACE) MG/DL Urine Glucose (UA) (NEG) MG/DL Urine Ketones (NEG) MG/DL Urine Blood (NEG) Urine Nitrite (NEG) Ur Leukocyte Esterase (NEG) Urine RBC (0) /HPF Urine WBC (0-4) /HPF Ur Squamous Epith Cells /LPF Urine Bacteria /LPF Urine Mucus /LPF Discharge Plan Discharge Clinical Impression: Pancreatitis, Hypertriglyceridemia Patient Disposition: Home, Self-Care Instructions: Pancreatitis (ED) Prescriptions: New pantoprazole [Protonix] 40 mg tablet,delayed release (DR/EC) 40 mg PO DAILY Qty: 20 0RF ondansetron 4 mg tablet,disintegrating 4 mg PO Q8H 4 Days Qty: 12 0RF No Action fenofibrate micronized 134 mg Capsule 134 mg PO DAILY Qty: 30 2RF atorvastatin 80 mg tablet 80 mg PO DAILY 90 Days Qty: 90 3RF Linzess 145 mcg capsule 145 mcg PO DAILY Qty: 30 2RF Referrals: Jojo Seymour MD [Primary Care Provider] - 3 days
[2021-09-01 22:38] VITALS: BP 146/89; PULSE 89; RESP 16; TEMP 36.8; O2SAT 97
[2021-09-01 22:43] LABS: Lipase 287 U/L (8-78)
[2021-09-01 22:59] LABS: Cholesterol 1276 mg/dL
[2021-09-01 23:09] LABS: HDL Cholesterol 28 mg/dL; Triglycerides 8239 mg/dL
[2021-09-01] MEDS: 0.9 % Sodium Chloride 1,000 ML 500 ML IVCONT (23:12)
[2021-09-01] MEDS: Pantoprazole Sodium 40 MG/10 ML VIAL IVPUSH (23:13)
[2021-09-01] MEDS: ondansetron HCL 4 MG/2 ML VIAL IVPUSH (23:13)
[2021-09-02 00:16] VITALS: BP 143/89; PULSE 89; RESP 18; O2SAT 99
[2021-09-02 00:35] LABS: Appearance Urine CLOUDY; Color Urine YELLOW; Glucose Urine UA NEG (NEG); Leukocyte Esterase Urine TRACE (NEG); Nitrite Urine POS (NEG); Specific Gravity - Urine >= 1.030 (1.005-1.025); UACC Culture Trigger YES; Urine Blood 3+ (NEG); Urine Ketones 5 MG/DL (NEG); Urine Protein 2+ MG/DL (NEG-TRACE)
[2021-09-02 00:42] LABS: Bacteria Urine 4+ /LPF; Mucus Urine 2+ /LPF; RBC Urine 0-2 /HPF (0); Squamous Epithelial Cell Urine 3+ /LPF
[2021-09-02] MEDS: PHENobarb/Hyoscy/Atropine/Scop 10 ML ELIXIR PO (01:22)
[2021-09-02] MEDS: Lidocaine HCl Viscous 2 % 15 ML SOLUTION MUCOUS MEM (01:23)
[2021-09-02] MEDS: Magnesium Hydrox/Alum Hydrox 30 ML ORAL.SUSP PO (01:23)
[2021-09-02] MEDS: ondansetron HCL 4 MG/2 ML VIAL IVPUSH (01:31)
[2021-09-02 01:33] LABS: Lipase 328 U/L (8-78)
[2021-09-02 02:27] VITALS: BP 124/61; PULSE 88; RESP 20; O2SAT 95
== END 2021-09-02 03:10 | disposition home or self-care (01) ==
PROVIDERS: Emergency Provider Emergency Medicine; PCP Internal Medicine
DX: K85.90 Acute pancreatitis without necrosis or infection, unspecified (principal); E78.1 Pure hyperglyceridemia
CPT/HCPCS: 36415; 80053; 80061; 81001; 83690; 85025; 87086; 87088; 87186; 96361; 96374; 96375; 96376; 99284; J2405

== ENCOUNTER 2021-09-03 15:31 | Outpatient (REF) | payer MEDICAID, SELFPAY ==
[2021-09-03 16:50] LABS: TSH reflex Free T4 1.14 uIU/mL (0.32-4.0)
[2021-09-03 16:55] LABS: Amylase 80 U/L (28-100); Blood Urea Nitrogen 10 mg/dL (9-16); Estimated Glomerular Filt Rate > 60; Lipase 224 U/L (8-78)
[2021-09-03 17:01] LABS: Triglycerides 2926 mg/dL
[2021-09-03 17:08] LABS: Folate 15.7 ng/mL (> or = 4.0); Vitamin B12 214 pg/mL (200-900)
[2021-09-09 12:36] LABS: Vitamin D 25-OH, D2 <4 ng/mL; Vitamin D 25-OH, D3 12 ng/mL; Vitamin D 25-OH, Total 12 ng/mL (30-100)
== END 2021-09-03 15:32 | disposition home or self-care (01) ==
LOC: HO.LAB 15:31
PROVIDERS: PCP Internal Medicine; Visit Provider Nurse Practitioner Family
DX: E78.1 Pure hyperglyceridemia (principal); E55.9 Vitamin D deficiency, unspecified; R10.11 Right upper quadrant pain; R19.7 Diarrhea, unspecified; K21.9 Gastro-esophageal reflux disease without esophagitis; Z87.19 Personal history of other diseases of the digestive system
CPT/HCPCS: 36415; 82150; 82306; 82565; 82607; 82746; 83690; 84443; 84478; 84520; 99212

== ENCOUNTER 2021-09-04 11:16 | Outpatient (REF) | payer MEDICAID, SELFPAY ==
--- NOTE | ~2021-09-04 | MR_ITS ---
EXAMINATION: MR ABDOMEN WITHOUT AND WITH CONTRAST CLINICAL INFORMATION: Recurrent pancreatitis COMPARISON: Previous CT scan of the abdomen and pelvis most recent October 2020 and renal ultrasound from 2020 and abdominal ultrasound from 2013 TECHNIQUE: MR abdomen was performed without and with use of 10 mL intravenous Gadavist gadolinium contrast. Postcontrast images are performed in multiphase dynamic sequences. Imaging was performed in 3 planes. MRCP sequences were also performed. FINDINGS: LUNG BASES: The visualized lung bases are unremarkable. LIVER, GALLBLADDER, AND BILIARY TREE: There is slight signal loss in the liver on out of phase sequences suggestive of mild fatty infiltration. The liver size and contour is normal. No focal liver lesion. No focal hepatic lesion or biliary ductal dilatation is present. The gallbladder has been removed. Intrahepatic extrahepatic bile ducts are normal in caliber. The common bile duct measures 5 mm. No common bile duct stone is seen. PANCREAS: There is fullness and increased T2 signal seen in the pancreas. The pancreas enhances normally. No focal pancreatic lesion is seen. There is fat stranding and small amount of fluid seen surrounding the pancreas, the small bowel mesentery and along the left pararenal fascia. The main pancreatic duct is normal in caliber measuring 3 mm. No evidence of pancreas divisum.. SPLEEN: There is a 1.4 lesion in the superior spleen. This is stable from previous CT scan, low signal on T1 and high signal on T2-weighted sequences and demonstrates gradual enhancement probably represents a benign hemangioma. ADRENAL GLANDS: Normal. KIDNEYS AND URETERS: The kidneys are normal in size, shape, and enhance symmetrically. No hydronephrosis. No perinephric stranding. GASTROINTESTINAL TRACT: No bowel obstruction. No ascites or fluid collection. ABDOMINAL WALL: There is a small umbilical hernia containing fat. LYMPH NODES: No lymphadenopathy. VASCULAR: Unremarkable. OSSEOUS STRUCTURES: Marrow signal normal. MR/MR abdomen wo/w con IMPRESSION: Mild interstitial pancreatitis. The pancreas enhances normally and no focal lesion is seen. Normal-appearing main pancreatic duct and bile ducts. Stable 1.4 cm splenic lesion probably representing a hemangioma.
[2021-09-10 19:17] LABS: Pancreatic Elastase-1 >500 mcg/g
== END 2021-09-04 11:17 | disposition home or self-care (01) ==
LOC: HO.MRI 11:16
PROVIDERS: Visit Provider Nurse Practitioner Family
DX: R10.9 Unspecified abdominal pain (principal); E78.1 Pure hyperglyceridemia; Z87.19 Personal history of other diseases of the digestive system
CPT/HCPCS: 74183; 82656; A9585

== ENCOUNTER 2021-10-13 12:56 | Outpatient (REF) | payer MEDICAID, SELFPAY ==
[2021-10-13 13:43] LABS: Cholesterol 392 mg/dL; Lipase 73 U/L (8-78)
[2021-10-13 14:01] LABS: HDL Cholesterol 30 mg/dL; Triglycerides 2466 mg/dL
== END 2021-10-13 12:57 | disposition home or self-care (01) ==
LOC: HO.LAB 12:56
PROVIDERS: PCP Internal Medicine; Visit Provider Nurse Practitioner Family
DX: R10.9 Unspecified abdominal pain (principal); I25.10 Atherosclerotic heart disease of native coronary artery without angina pectoris; E78.1 Pure hyperglyceridemia; Z87.19 Personal history of other diseases of the digestive system
CPT/HCPCS: 36415; 80061; 83690; 99212

== ENCOUNTER 2022-01-07 08:17 | Outpatient (REF) | payer MEDICAID, SELFPAY ==
[2022-01-07 09:40] LABS: HDL Cholesterol 32 mg/dL; Triglycerides 3796 mg/dL
[2022-01-07 09:47] LABS: Cholesterol 770 mg/dL
[2022-01-07 12:27] LABS: Reflex LDLD? No
[2022-01-08 22:47] LABS: LDL Cholesterol Direct 134 mg/dL (<100)
== END 2022-01-07 08:18 | disposition home or self-care (01) ==
LOC: HO.LAB 08:17
PROVIDERS: PCP Internal Medicine; Visit Provider Internal Medicine
DX: E78.1 Pure hyperglyceridemia (principal)
CPT/HCPCS: 36415; 80061; 83721

== ENCOUNTER 2022-01-13 12:54 | Outpatient (REF) | payer MEDICAID, SELFPAY ==
[2022-01-13 14:17] LABS: Estimated Average Glucose 103 mg/dL; Hemoglobin A1c % 5.2 %
[2022-01-13 15:22] LABS: Alanine Aminotransferase 16 U/L (0-31); Albumin Level 4.1 g/dL (3.5-5.0); Alkaline Phosphatase 81 U/L (39-117); Aspartate Amino Transferase 16 U/L (5-31); Bilirubin Total 0.4 mg/dL (0.0-1.0); Blood Urea Nitrogen 16 mg/dL (9-16); Calcium 9.2 mg/dL (8.4-10.2); Estimated Glomerular Filt Rate > 60; Glucose Random 79 mg/dL (60-115); Total Protein 8.1 g/dL (6.5-8.0)
[2022-01-13 15:28] LABS: Anion Gap 19 (12-20); Carbon Dioxide 20 mmol/L (22-29); Chloride 102 mmol/L (96-108); Potassium 4.2 mmol/L (3.3-5.1); Sodium 137 mmol/L (135-145)
[2022-01-13 16:20] LABS: Triglycerides 4526 mg/dL
[2022-01-13 16:21] LABS: Cholesterol 929 mg/dL; HDL Cholesterol 29 mg/dL
[2022-01-13 16:22] LABS: Reflex LDLD? Yes
[2022-01-14 14:27] LABS: LDL Cholesterol Direct 140 mg/dL (<100)
[2022-01-17 05:52] LABS: Lipoprotein A 11 nmol/L (<75)
== END 2022-01-13 12:55 | disposition home or self-care (01) ==
LOC: HO.LAB 12:54
PROVIDERS: PCP Internal Medicine; Visit Provider Internal Medicine
DX: E78.1 Pure hyperglyceridemia (principal); Z86.39 Personal history of other endocrine, nutritional and metabolic disease
CPT/HCPCS: 36415; 80053; 80061; 83036; 83695; 83721

== ENCOUNTER 2022-02-05 14:44 | Outpatient (REF) | payer MEDICAID, SELFPAY ==
[2022-02-05 15:13] LABS: Hematocrit 38.2 % (37.0-47.0); Hemoglobin 13.7 g/dl (12.0-16.0); Mean Corpuscular HGB Conc 35.9 g/dl (31.0-35.0); Mean Corpuscular Hemoglobin 26.4 pg (27.0-33.0); Mean Corpuscular Volume 73.7 fL (80.0-98.0); Mean Platelet Volume 9.7 fL (9.4-12.3); Platelet Count 274 X10*3/uL (160-400); Red Blood Count 5.18 X10*6/uL (4.20-5.50); Red Cell Distribution Width 15.7 % (11.0-16.0); White Blood Count 9.5 X10*3/uL (4.8-10.8)
[2022-02-05 16:17] LABS: HCG Quantitative < 2 mIU/mL; TSH reflex Free T4 1.29 uIU/mL (0.32-4.0)
[2022-02-06 03:06] LABS: CT PCR NOT DETECTED (Not Detect.); NG PCR NOT DETECTED (Not Detect.)
[2022-02-13 20:07] LABS: HPV mRNA E6/E7 rflx Detected (Not Detected)
[2022-02-13 20:12] LABS: HPV 16 RNA DETECTED (NOT DETECTED)
== END 2022-02-05 14:45 | disposition home or self-care (01) ==
LOC: HO.LAB 14:44
PROVIDERS: PCP Internal Medicine; Visit Provider Obstetrics & Gynecology
DX: Z12.4 Encounter for screening for malignant neoplasm of cervix (principal); Z11.51 Encounter for screening for human papillomavirus (HPV); Z11.3 Encounter for screening for infections with a predominantly sexual mode of transmission; N93.9 Abnormal uterine and vaginal bleeding, unspecified
CPT/HCPCS: 84443; 84702; 85027; 87491; 87591; 87624; 87625; 88142; 99202

== ENCOUNTER → 2022-02-17 15:19 | Outpatient (BNVA) | payer MEDICAID, SELFPAY | PROVIDERS: PCP Internal Medicine; Referring Provider Internal Medicine; Visit Provider Nurse Practitioner Family | DX: K59.01 Slow transit constipation (principal); Z87.19 Personal history of other diseases of the digestive system | CPT/HCPCS: 99212 ==

== ENCOUNTER 2022-03-12 14:28 | Outpatient (REF) | payer MEDICAID, SELFPAY ==
--- NOTE | ~2022-03-12 | MM_ITS ---
EXAMINATION: MM SCREENING DIGITAL BREAST TOMOSYNTHESIS, BILATERAL CLINICAL INFORMATION: Screening. Asymptomatic. The lifetime risk of breast cancer based on the Tyrer-Cuzick Model is
--- NOTE | ~2022-03-12 | US_ITS ---
EXAMINATION: US PELVIS CLINICAL INFORMATION: Abnormal uterine and vaginal bleeding COMPARISON: None TECHNIQUE: Ultrasound of the pelvis is performed using both transabdominal and transvaginal transducers along with Doppler. Transvaginal imaging is performed due to inadequate visualization transabdominally. FINDINGS: The uterus is anteverted and measures 8.4 x 4.3 x 5 cm in dimension. No focal uterine lesion. Endometrial thickness is normal measuring 0.9 cm. There are nabothian cysts in the cervix. The right ovary measures 4.3 x 3.3 x 3.7 cm. There are 2 right ovarian cysts measuring 3 x 2 x 2.4 cm and 1 x 1.4 x 1.1 cm. The left ovary is seen transabdominally only and measures 3 x 2 x 2 cm. No ultrasound follow-up according to size and patient age. There is no fluid in the pelvis. US/US pelvic and transvaginal IMPRESSION: Unremarkable exam. Normal-appearing uterus. 2 right ovarian cysts, largest measuring 3 x 2 x 2.4 cm.
== END 2022-03-12 14:29 | disposition home or self-care (01) ==
LOC: HO.MAMMO 14:28
PROVIDERS: PCP Internal Medicine; Visit Provider Obstetrics & Gynecology
DX: Z12.31 Encounter for screening mammogram for malignant neoplasm of breast (principal); N93.9 Abnormal uterine and vaginal bleeding, unspecified
CPT/HCPCS: 76830; 76856; 77063; 77067

== ENCOUNTER → 2022-03-18 14:05 | Outpatient (BNVA) | payer MEDICAID, SELFPAY | PROVIDERS: PCP Internal Medicine; Referring Provider Internal Medicine; Visit Provider Nurse Practitioner Family | DX: K59.01 Slow transit constipation (principal); E78.1 Pure hyperglyceridemia; Z87.19 Personal history of other diseases of the digestive system | CPT/HCPCS: 99212 ==

== ENCOUNTER → 2022-03-25 14:37 | Outpatient (BNVA) | payer MEDICAID, SELFPAY | PROVIDERS: PCP Internal Medicine; Visit Provider Obstetrics & Gynecology | DX: Z13.89 Encounter for screening for other disorder (principal) ==

== ENCOUNTER 2022-04-16 14:31 | Outpatient (REF) | payer MEDICAID, SELFPAY | END 2022-04-16 14:32 | disposition home or self-care (01) | LOC: HO.LNP 14:31 | PROVIDERS: PCP Internal Medicine; Visit Provider Obstetrics & Gynecology | DX: R87.810 Cervical high risk human papillomavirus (HPV) DNA test positive (principal); N93.9 Abnormal uterine and vaginal bleeding, unspecified | CPT/HCPCS: 57454; 58100; 58110; 88305; 88341; 88342 ==

== ENCOUNTER → 2022-04-27 09:45 | Outpatient (BNVA) | payer MEDICAID, SELFPAY | PROVIDERS: PCP Internal Medicine; Visit Provider Obstetrics & Gynecology | DX: D06.9 Carcinoma in situ of cervix, unspecified (principal); Z98.890 Other specified postprocedural states | CPT/HCPCS: 99212 ==

== ENCOUNTER → 2022-05-01 14:35 | Outpatient (BNVA) | payer MEDICAID, SELFPAY | PROVIDERS: PCP Internal Medicine; Visit Provider Nurse Practitioner Family | DX: R10.9 Unspecified abdominal pain (principal); K59.04 Chronic idiopathic constipation; R14.0 Abdominal distension (gaseous); Z90.49 Acquired absence of other specified parts of digestive tract; Z87.19 Personal history of other diseases of the digestive system | CPT/HCPCS: 99212 ==

== ENCOUNTER 2022-06-04 08:53 | Outpatient (REF) | payer MEDICAID, SELFPAY ==
[2022-06-04 10:14] LABS: Cholesterol 248 mg/dL; HDL Cholesterol 38 mg/dL; Triglycerides 939 mg/dL
[2022-06-04 12:12] LABS: Reflex LDLD? Yes
[2022-06-06 07:04] LABS: LDL Cholesterol Direct 72 mg/dL (<100)
== END 2022-06-04 08:54 | disposition home or self-care (01) ==
LOC: HO.LAB 08:53
PROVIDERS: PCP Internal Medicine; Visit Provider Physician Assistant
DX: E78.1 Pure hyperglyceridemia (principal)
CPT/HCPCS: 36415; 80061; 82550; 83721

== ENCOUNTER 2022-10-15 21:22 | Observation (INO) | payer MEDICAID, SELFPAY ==
--- NOTE | ~2022-10-15 | CT_ITS ---
EXAMINATION: CT ABDOMEN AND PELVIS WITHOUT CONTRAST CLINICAL INFORMATION: Blood in the urine. Right flank pain. COMPARISON: 11/01/2020 TECHNIQUE: Multidetector volumetric imaging was performed from the superior aspect of the liver through the pubic symphysis. Sagittal and coronal reformatted images were obtained on the technologist's workstation. This CT examination was performed using dose optimization techniques as appropriate, variously including the following: *Automated exposure control *Adjustment of mA and/or kV according to patient size (this includes techniques or standardized protocols for targeted exams where dose is matched to indication/reason for exam; i.e. extremities or head) *Use of iterative reconstruction technique DLP: 660 mGy-cm FINDINGS: LUNG BASES: The visualized lung bases are unremarkable. LIVER, GALLBLADDER, AND BILIARY TREE: The liver is normal in size, shape, and attenuation. No focal hepatic lesion or biliary ductal dilatation is present. Cholecystectomy. PANCREAS: Unremarkable. SPLEEN: Unremarkable. ADRENAL GLANDS: Unremarkable. KIDNEYS AND URETERS: The kidneys are normal in size, shape, and attenuation. No hydronephrosis, hydroureter, or calculi seen. No perinephric stranding. BLADDER: Unremarkable. GASTROINTESTINAL TRACT: The small and large bowel are unremarkable. The appendix is unremarkable. ABDOMINAL WALL: No significant hernia is appreciated. LYMPH NODES: Normal. VASCULAR: Unremarkable. PELVIC VISCERA: Uterus not seen. No adnexal mass identified. OSSEOUS STRUCTURES: No acute or suspicious osseous abnormality. Mild degenerative changes of the spine. CT/CT abdomen pelvis wo IV con IMPRESSION: No acute findings in the abdomen or pelvis. No hydronephrosis or nephrolithiasis. Fleischner guidelines were followed.
[2022-10-15 21:30] VITALS: BP 174/88; PULSE 96; RESP 18; TEMP 36.8; O2SAT 95; BMI 35.8
--- OUTSIDE RECORDS SUMMARY | 2022-10-15 23:16 | XMS_ITS | Continuity of Care Document ---
Author Name Unknown Organization [facility]TE[facility] Oncolog y Address [address] [place] [id number]- Care Team Providers Care Key Punch Teacher Name Role Phone Jojo Seymour MD Primary Care Physician [phone] Encounter [facility] [place] Date(s): 06/02/22 - 07/02/22 [facility] [employer] MAINTENANCE ENG[facility] Oncology [address] [place] [id number]- Allergies, Adverse Reactions, Alerts No Known Medication Allergies Medications amLODIPine 5 mg oral tablet 5 mg, 1, tablet, By Mouth, Daily at bedtime, Refills 0, Maintenance, 05/04/22 14:32:00 EST, Partialfill upon patient request if the prescription is for a schedule II opioid drug. Start Date: 05/04/22 Status: Ordered atorvastatin 80 mg oral tablet 1 tablet = 80 mg, By Mouth, Daily at bedtime, 0 Refills, Maintenance, 05/04/22 14:31:00 EST, Partial fill upon patient request if the prescription is for a schedule II opioid drug. Start Date: 05/04/22 Status: Ordered docusate sodium 100 mg oral capsule = 100 mg, By Mouth, 2 times a day, 0 Refills, Maintenance, 05/04/22 14:31:00 EST, Partial fill uponpatient request if the prescription is for a schedule II opioid drug. Start Date: 05/04/22 Status: Ordered ezetimibe 10 mg oral tablet 1 tablet = 10 mg, By Mouth, Daily at bedtime, 0 Refills, Maintenance, 05/27/22 14:46:00 EST, Partial fill upon patient request if the prescription is for a schedule II opioid drug. Start Date: 05/27/22 Status: Ordered fenofibrate 200 mg oral capsule 1 capsule = 200 mg, By Mouth, Daily at bedtime, 0 Refills, Maintenance, 05/04/22 14:31:00 EST, Partial fill upon patient request if the prescription is for a schedule II opioid drug. Start Date: 05/04/22 Status: Ordered [place]-3 Fish Oil = 1,000 mg, By Mouth, Daily, 0 Refills, Maintenance, 05/04/22 14:30:00 EST, Partial fill upon patient request if the prescription is for a schedule II opioid drug. Start Date: 05/04/22 Status: Ordered Problem List Condition Confirmation Course Effective Dates Status Health Status Informant Chronic constipation Confirmed Active History of pancreatitis Confirmed Active Hypertriglyceridemia Confirmed Active Adenocarcinoma in situ Confirmed Active Obese class I Confirmed Active Patient Care team information Care Team Personnel Name: Jojo Seymour MD Position: [facility] Outreach Member Role: PCP Address: Address: [address] [place] [id number]- Care Team Related Persons Name: HANK GREENE Name: HANK SHEEHAN Address: home [address] [place] [id number]
--- OUTSIDE RECORDS SUMMARY | 2022-10-15 23:16 | XMS_ITS | Continuity of Care Document ---
Author Name Unknown Organization [facility] On[facility] Address [address] [place] [id number]- Care Team Providers Care Sales Consultant Residential Manager Name Role Phone Jojo Seymour MD Primary Care Physician [place] [facility] [place]03[place]22 - 09/02/22 [facility] Oncology [address] [place] [id number] Allergies, Adverse Reactions, Alerts No Known Medication [...] mg, By Mouth, 2 times a day, PRN as needed for constipation, 0 Refills, Maintenance, 05/04/2313:31:00 EST, Partial fill upon patient request if [...] opioid drug. Start Date: 05/04/22 Status: Ordered [place]-3 Fish Oil = 1,000 mg, By Mouth, 2 times a day, 0 Refills, Maintenance, 05/04/22 14:30:00 EST, Partial fill upon patient request if the prescription is for a schedule II opioid drug. Start Date: 05/04/22 Status: Ordered Praluent Pen Subcutaneous Infusion, Every 14 days, 0 Refills, Maintenance, 07/21/22 13:07:00 EDT, Partial fill upon patient request if the prescription is for a schedule II opioid drug. Start Date: 07/21/22 Status: Ordered Problem List Condition Confirmation Course Effective Dates Status Health Status Informant Chronic constipation Confirmed Active History of pancreatitis Confirmed Active Hypertriglyceridemia Confirmed Active Adenocarcinoma in situ Confirmed Active Obese class I Confirmed Active Patient Care team information Care Team Personnel Name: Jojo Seymour MD Position: [facility] Outreach Member Role: PCP Address: Address: [address] [place] [id number]- Care Team Related Persons Name: HANK GREENE Name: HANK SHEEHAN Address: home [address] [place] [address]
--- OUTSIDE RECORDS SUMMARY | 2022-10-15 23:16 | XMS_ITS | Continuity of Care Document ---
Author Name Unknown Organization [facility] ter Address [address] [place] [address]- Care Team Providers Care Forest Botany Instructor Name Role Phone Jojo Seymour MD Primary Care Physician Encounter [facility] [place] Date(s): 07/24/22 - 07/24/[address] [address]- Discharge Disposition: A-D/C Home Attending Physician: Arianna Alcantara MD Admitting Physician: Arianna Alcantara MD Referring Physician: Arianna Alcantara MD Allergies, Adverse Reactions, Alerts No Known Medication Allergies Medications acetaminophen 325 mg oral tablet 975 mg, 3, tablet, By Mouth, Every 6 hours, Take every 6 hours while awake for first week after surgery and then take as needed for pain, # 60 tablet, Refills 0, Tot. Refills 0, Acute 07/25/22 10:16:00 EDT, 07/24/22 10:15:00 EDT, Route to Pharmacy Jenna... Start Date: 07/24/22 Stop Date: 07/25/22 Status: Ordered amLODIPine 5 mg oral tablet 5 mg, [...] opioid drug. Start Date: 05/04/22 Status: Ordered ibuprofen 600 mg oral tablet 600 mg, 1, tablet, By Mouth, Every 6 hours, Take every 6 hours you are awake for first 1 week aftersurgery, then may use as needed for pain, # 60 tablet, Refills 0, Tot. Refills 0, Acute 07/25/22 10:16:00 EDT, 07/24/22 10:15:00 EDT, Route to Pharmacy... Start Date: 07/24/22 Stop Date: 07/25/22 Status: Ordered MiraLax oral powder for reconstitution = 17 Gm, By Mouth, Daily, Dissolve in water before taking. Use daily after surgery until having regular bowel movements, # 255 Gm, 0 Refills, Acute 07/25/22 10:16:00 EDT, 07/24/22 10:15:00 EDT, REC Powder, [id number], Partial fill upo... Start Date: 07/24/22 Stop Date: 07/25/22 Status: Ordered [place]-3 Fish Oil = 1,000 mg, By Mouth, 2 times a day, 0 Refills, Maintenance, 05/04/22 14:30:00 EST, Partial fill upon patient request if the prescription is for a schedule II opioid drug. Start Date: 05/04/22 Status: Ordered oxyCODONE 5 mg oral tablet 5 mg, 1, tablet, By Mouth, Every 6 hours, PRN, # 10 tablet, Refills 0, Tot. Refills 0, Acute 07/25/22 10:16:00 EDT, as needed for pain, 07/24/22 10:15:00 EDT, Route to Pharmacy Electronically, [facility][id number], Partial fill upon patient req... Start Date: 07/24/22 Stop Date: 07/25/22 Status: Ordered Praluent Pen Subcutaneous Infusion, Every 14 days, 0 Refills, Maintenance, 07/21/22 13:07:00 EDT, Partial fill upon patient request if the prescription is for a schedule II opioid drug. Start Date: 07/21/22 Status: Ordered Senna 8.6 mg oral tablet 17.2 mg, 2, tablet, By Mouth, Daily at bedtime, Take after surgery until you are having regular bowel movements and then stop, # 20 tablet, Refills 0, Tot. Refills 0, Acute, 07/25/22 10:16:00 EDT, 07/24/22 10:15:00 EDT, Route to Pharmacy [facility]... Start Date: 07/24/22 Stop Date: 07/25/22 Status: Ordered Problem List Condition Confirmation Course Effective Dates Status Health Status Informant Chronic constipation Confirmed Active History of pancreatitis Confirmed Active Hypertriglyceridemia Confirmed Active Adenocarcinoma in situ Confirmed Active Severe obesity (BMI 35.0-39.9) with comorbidity Confirmed Active Vital Signs Most recent to oldest [Reference Range]: 1 2 3 Height 160 cm (07/24/22 6:23 AM) 160 cm (07/22/22 4:33 PM) Weight 90.8 kg (07/24/22 6:23 AM) 90.8 kg (07/22/22 4:33 PM) Oxygen Saturation [94-100 %] 96 % (07/24/22 12:45 PM) 96 % (07/24/22 12:30 PM) 94 % (07/24/22 12:15 PM) Pulse Rate [55-90 bpm] 73 bpm (07/24/22 6:23 AM) Body Mass Index [18.5-24.99 kg/m2] 35.47 kg/m2 *>HHI* (07/24/22 6:23 AM) 35.47 kg/m2 *>HHI* (07/22/22 4:33 PM) Blood Pressure [90-138/55-84 mm Hg] 145/93mm Hg *H* (07/24/22 12:45 PM) 141/95mm Hg *H* (07/24/22 12:30 PM) 140/92mm Hg *H* (07/24/22 12:15 PM) Respiratory Rate [16-30 br/min] 17 br/min (07/24/22 12:45 PM) 14 br/min *L* (07/24/22 12:30 PM) 16 br/min (07/24/22 12:15 PM) Temperature [96.8-100.4 DegF] 98.1 DegF (07/24/22 12:15 PM) 98.6 DegF (07/24/22 10:30 AM) 98.3 DegF (07/24/22 6:23 AM) Liters per Minute 2 L/min (07/24/22 10:45 AM) 6 L/min (07/24/22 10:30 AM) Mode of Delivery (Oxygen) Room air (07/24/22 11:15 AM) Nasal cannula (07/24/22 10:45 AM) Simple face mask (07/24/22 10:30 AM) Blood pressure sites Arm, left (07/24/22 10:30 AM) Temperature Route Temporal (07/24/22 12:15 PM) Temporal (07/24/22 10:30 AM) Temporal (07/24/22 6:23 AM) Dry Weight 90.8 kg (07/22/22 4:33 PM) Weight Obtained Via Patient/family state d (07/22/22 4:33 PM) Dry Weight Obtained Via Patient/family s tated (07/22/22 4:33 PM) Note * Lashawn Max RN: PERFORM Event Display: Discharge/Transfer Note Hospital Authored Date: [id number] Nursing Discharge Note Entered On: 07/24/2022 13:45 EDT Performed On: 07/24/2022 13:45 EDT by Lashawn Max RN Nursing Discharge Note 2 Discharge Time : 07/24/2022 13:43 EDT Discharge Level of Care at Discharge : Home/Long Term/Foster Care Patient Left Unit Via : Wheelchair Patient Accompanied Off Unit with : Responsible adult DC Instructions Provided & Signed by Pt : Yes Patient Understands D/C Instructions : Yes Patient Instructions Discharge Signed : Yes Did Pt have Specialty Bed or Wound Vac : No Lashawn Max RN - 07/24/2022 13:45 EDT * Lashawn Max RN: PERFORM, MODIFY Event Display: Patient Education/Instruction Authored Date: [id number] Inpatient Adult Discharge Instructions [address] [address] Name: SALVATORE GREENE : 1975 Visit: 07/24/2022 05:44:00 Current Date: 07/24/2022 13:00 Account: [id number] Inpatient Adult Discharge Instructions We would like to thank you for allowing us to assist you with your healthcare needs. The following includes patient education materials and information regarding your injury/illness. Our entire staffstrives to provide an excellent experience for our patients and their families. PLEASE ENSURE YOU FOLLOW-UP PER THE INSTRUCTIONS BELOW! ?? YOUR OPINION IS IMPORTANT TO US! Please complete the survey you may receive by mail or email. Your feedback will be used to make improvements to the healthcare experiences of our patients and their families. Surveys are administered by [employer] ?? If further treatment with your primary care physician or another doctor is recommended, it is important for you to keep the appointment. Call your primary care physician or return to the Emergency Department immediately if your condition worsens, fails to improve, or new symptoms develop. If you need to find a doctor, you can call [facility] [employer] [facility] for a referral at [phone] or toll free at [phone] or log in to [email or web address].. ?? You can view and manage your care through the patient portal or by using a health care jayshree of your choosing. [employer] is a website that allows you to securely view your medical information including your hospital discharge summary, office visit summaries, medications and follow-up visits. You can also request appointments, renew medications, and request access to your medical information using a health care jayshree of your choosing, or just ask a question. You can enroll at [email or web address] or register during your next office visit. You have been discharged from [facility], Patient Care Unit: PANU. If you have any questions regarding these instructions after you leave, please call us and we will be happy to assist you. [facility] Your Care Team Attending Physician Quinton RATLIFF, Arianna Consulting Providers Quinton RATLIFF, Arianna Discharging Providers Mahin NICOLAS, Linda Jason Reason for Your Visit [facility] IN S[facility] OF [facility] Tests Performed Below is a partial list of the tests performed during your hospitalization. You may have had other tests and procedures not included in this list. Please discuss all test results with your provider. Primary Care Provider Dawn RATLIFF , Jojo Advance Directive . Discharge Vitals Temperature: 98.1 DegF Height: 160 cm Pulse Rate: 73 bpm Weight: 90.8 kg Respiratory Rate:??14 br/min??Low Body Mass Index:??35.47 kg/m2??Critical Systolic Blood Pressure:??141 mm Hg??High Body surface area: 2.01 Diastolic Blood Pressure:??95 mm Hg??High ?? Oxygen Saturation: 96 % ?? Studies Pending All tests and labs ordered during this hospital stay have been completed unless listed below. Please discuss all pending results with your provider listed above in these instructions. ?? [facility] Pathology Tissue Request () What to do next Instructions From Your Doctor Discharge Orders Instructions from your Care Team You may shower, do not scrub the incision sites or soak.??Avoid using lotions or creams around incision site. Scheduled Follow-Up Appointments Wednesday. 2022 11:30 AM EDT ?? With: Mahin NICOLAS, Linda Jason Where: [facility] [employer] On[facility] [address] [facility] 4th [place] [address] [place] [address]- Discharge Medications SALVATORE GREENE :1975 Visit Date:07/24/2022 Medications: Please continue your medications until treatment is completed or stopped by your provider. Medications not listed below should be discontinued. Discuss any questions related to medications with your provider. What How Much When Instructions Next Dose New Acetaminophen (acetaminophen 325 mg oral tablet) 3 tab(s) Oral Every 6 hours Take every 6 hours while awake for first week after surgery and then take as needed for pain ?? Pickup at [facility] #[id number] 07/24 when needed New Ibuprofen (ibuprofen 600 mg oral tablet) 1 tab(s) Oral Every 6 hours Take every 6 hours you are awake for first 1 week after surgery, then may use as needed for pain ?? Pickup at [facility] #[id number] 07/24 6pm New Oxycodone (oxyCODONE 5 mg oral tablet) 1 tab(s) Oral Every 6 hours as needed for as needed for pain Pickup at [facility] #[id number] 07/24 5pm New Polyethylene Glycol 3350 (MiraLax oral powder for reconstitution) 17 gram Oral Daily Dissolve in water before taking. Use daily after surgery until having regular bowel movements ?? Pickup at [facility] #[id number] 07/24 when needed New Senna (Senna 8.6 mg oral tablet) 2 tab(s) Oral Daily at Bedtime Take after surgery until you are having regular bowel movements and then stop ?? Pickup at [facility] #[id number] 07/24 when needed Unchanged alirocumab (Praluent Pen) Subcutaneous Infusion Every 14 days resume home regimen Unchanged Amlodipine (amLODIPine 5 mg oral tablet) 1 tab(s) Oral Daily at Bedtime resume home regimen Unchanged Atorvastatin (atorvastatin 80 mg oral tablet) 1 tab(s) Oral Daily at Bedtime resume home regimen Unchanged Docusate (docusate sodium 100 mg oral capsule) 100 Milligram Oral Twice a day as needed for as needed for constipation resume home regimen Unchanged Ezetimibe (ezetimibe 10 mg oral tablet) 1 tab(s) Oral Daily at Bedtime resume home regimen Unchanged Fenofibrate (fenofibrate 200 mg oral capsule) 1 capsule Oral Daily at Bedtime resume home regimen Unchanged Erie-3 Polyunsaturated Fatty Acids (Erie-3 Fish Oil) 1,000 Milligram Oral Twice a day resume home regimen Pharmacy Information [facility][id number]: [address] [place], [place] [id number] [phone] Test Results Below is a partial list of the most recent Laboratory test results done prior to this discharge. You may have had other tests and procedures not included in this list. Please discuss all test resultswith your provider. Allergies (NKA means No Known Allergies) No Known Medication Allergies Problems Active Problems??(5) Adenocarcinoma in situ?? Chronic constipation?? History of pancreatitis?? Hypertriglyceridemia?? Severe obesity (BMI 35.0-39.9) with comorbidity?? Education Materials Below is the list of Educational Leaflet Providered with your Discharge Instructions. Valuables and Belongings I fully understand and agree that [facility] accepts no responsibility for all my personal property including clothing, toilet articles, radios, jewelry, dentures, hearing aids, rings, money, or any other property that is in my possession or is brought to me after admission. I understand certain valuables may be placed in a hospital safe for a short period of time. I understand that the hospital is not liable for loss or damage due to accident, fire, or other natural occurrence while said property is in the safe. I accept full responsibility for any personal property that I keep with me, and will not hold the hospital responsible in case of loss or disappearance. I acknowledge that i have been encouraged to send valuables and belongings home. ?? Review of Valuable and Belonging List: With patient Disposition of Belongings: Other: patient belongings locker Date for Pt to Sign Valuables/Belongings: 07/24/22 06:59:00 ?? Valuables & Belongings ?? Clothes Electronic devices Jewelry Monetary Items Personal devices Miscellaneous Medications (Valuables) Valuables at Bedside Pants, Shirt, Shoes, Undergarments Cell phone Rings ?? Glasses ? Valuables Sent Home ? Valuables Sent to Security ? Other Discharge Information ? Pulmonary Rehab Status?? Pulmonary Rehab Discharge Status?? Respiratory Rate:??14 br/min??Low ? Common Emergency Awareness Tips IS IT A STROKE? Act FAST and Check for these signs: FACE Does the face look uneven? ARM Does one arm drift down? SPEECH Does their speech sound strange? TIME Call at any sign of stroke ?? Heart Attack Signs Chest discomfort: Most heart attacks involve discomfort in the center of the chest and lasts more than a few minutes, or goes away and comes back. It can feel like uncomfortable pressure, squeezing, fullness or pain. Discomfort in upper body: Symptoms can include pain or discomfort in one or both arms, back, neck, jaw or stomach. Shortness of breath: With or without discomfort. Other signs: Breaking out in a cold sweat, nausea, or lightheaded. Remember, MINUTES DO MATTER. If you experience any of these heart attack warning signs, call to get immediate medical attention! ?? Smoking can increase your chances of developing chronic health problems and can cause harmful effects to other family members in your house. If you smoke, you are strongly encouraged to quit. Please call [facility] [employer] [facility] at [phone] or [phone] ([phone]) or log in to [email or web address] for referrals to smoking cessation programs. ?? 151 Suicide & Crisis Lifeline is available 12/10 if you or someone you know needs to find a reason to keep living. By calling 028 you'll be connected to a skilled, trained counselor at a crisis center in your area. INPATIENT DISCHARGE INSTRUCTIONS SIGNATURE PAGE SALVATORE GREENE Location:[facility] Registration Date and Time:07/24/2022 05:44 EDT Primary Care Physician: Dawn RATLIFF , [facility], I SALVATORE GREENE, have received the above patient education materials/instructions and have verbalized understanding. If ambulance or transport services are being used I further acknowledge being given a choice of service. ?? If you need to contact me, please call me at this number: . Patient/Senior Ui Ux Developer Name: Patient/Senior Ui Ux Developer Signature: Relationship to Patient: Witness Name/Signature: Date: * Lashawn Max RN: PERFORM, SIGN, VERIFY Event Display: Patient Education Handout Authored Date: [id number] * Lashawn Max RN: PERFORM Event Display: Patient Education Leaflets Authored Date: [id number] Surgery Medical Daystay Surgical Overnight Discharge Instructions ?? 295 Medical Daystay/Surgical Overnight Discharge Instructions ? Since your coordination and judgment may be altered by medication and/or anesthesia, a responsible adult must drive you home from the hospital. ? If you have received medication for pain or sedation while under our care, you should not drive, operate machinery, drink alcohol, or sign any legal documents for 24 hours.?? You should have someone with you at home tonight. ? Remain at home the day of discharge.?? You may be up and about unless otherwise instructed by your physician. ? You may resume your daily prescription medication schedule.?? Any depressant medication should be avoided for 24 hours unless otherwise instructed by your surgeon or anesthesiologist. ? Call your physician for a follow-up appointment.? If you experience unusual or severe pain not relied by your pain medication, excessive bleedingor drainage, persistent nausea and vomiting, excessive swelling or redness, foul odor from incisionsite or fever over 100.6F, you need to call your physician. ? A follow-up phone call by a nurse will be made the day after your procedure.?? If you have stayed with us over night, you will not be receiving a follow-up phone call. ? Nausea and vomiting are a common side effect of prescription pain medication.?? We recommend that pills are not taken on an empty stomach.?? While taking any prescription pain medication you should not drive or drink alcohol. ? Patient Care team information Care Team Personnel Name: Jojo Seymour MD Position: [facility] Outreach Member Role: PCP Address: Address: [address] [place] [address]- Care Team Related Persons Name: HANK GREENE Name: HANK SHEEHAN Address: home [address] [place] [address]
--- OUTSIDE RECORDS SUMMARY | 2022-10-15 23:16 | XMS_ITS | Continuity of Care Document ---
Author Name Unknown Organization [facility] Address [address] [place] [address]- Care Team Providers Care Demand Manager Name Role Phone Dawn RATLIFF, Jojo Primary Care Physician Encounter [facility] NBR [id number] Date(s): 04/27/22 - 05/27/22 [facility] [address] [place] [address]- Allergies, Adverse Reactions, Alerts No Known Medication [...] opioid drug. Start Date: 05/04/22 Status: Ordered [place]-3 Fish Oil = 1,000 mg, By Mouth, [...] obesity (BMI 35.0-39.9) with comorbidity Confirmed Active Patient Care team information Care Team Personnel Name: Jojo Seymour MD Position: [facility] Outreach Member Role: PCP Address: Address: [address] [place] [address]- Care Team Related Persons Name: HANK GREENE Name: HANK SHEEHAN Address: home [address] [place] [address]
--- OUTSIDE RECORDS SUMMARY | 2022-10-15 23:16 | XMS_ITS | Continuity of Care Document ---
Author Name Unknown Organization [facility] Address [address] [place] [address]- Care Team Providers Care Building Repair Maintenance Supervisor Name Role Phone Jojo Seymour MD Primary Care Physician [place] [facility] 06/16[place]22 - 07/16/22 [facility] [address] [place] [address]- Allergies, Adverse Reactions, Alerts No Known Medication [...] opioid drug. Start Date: 05/04/22 Status: Ordered [place]-3 Fish Oil = 1,000 mg, By Mouth, [...] Team Personnel Name: Jojo Seymour MD Position: [facility] Outreach Member Role: PCP Address: Address: [address] [place] [address]- Care Team Related Persons Name: HANK GREENE Name: HANK SHEEHAN Address: home [address] [place] [address]
--- OUTSIDE RECORDS SUMMARY | 2022-10-15 23:16 | XMS_ITS | Continuity of Care Document ---
Author Name Unknown Organization [facility] Address [address] [place] [id number]- Care Team Providers Care Youth Nutritional Monitor Name Role Phone Jojo Seymour MD Primary Care Phys[id number] Date(s): 05/29/22 - 05/29/[address] [address]- Discharge Disposition: A-D/C Home Attending Physician: Arianna Alcantara MD Admitting Physician: Arianna Alcantara MD Referring Physician: Arianna Alcantara MD Allergies, Adverse Reactions, Alerts No Known Medication Allergies Medications acetaminophen 500 mg oral capsule 2 capsule = 1,000 mg, By Mouth, Every 8 hours, PRN for pain, # 40 capsule, 0 Refills, Acute 06/29/22 0:00:00 EDT, 05/29/22 8:34:00 EST, Capsule, [facility] #[id number], Partial fill upon patientrequest if the prescription is for a schedule II op... Start Date: 05/29/22 Stop Date: 06/29/22 Status: Ordered amLODIPine 5 mg oral tablet [...] opioid drug. Start Date: 05/04/22 Status: Ordered HYDROmorphone Inj (PACU ONLY) 0.5 mg, Injection, IV Push Slowly, Every 10 minutes for 4 doses/times, in PACU ONLY, PRN for Pain ,Severe, Routine, 05/29/22 8:38:00 EST, Stop date Limited # of times Start Date: 05/29/22 Stop Date: 05/29/22 Status: Discontinued ibuprofen 600 mg oral tablet 600 mg, 1, tablet, By Mouth, Every 6 hours, # 40 tablet, Refills 0, Tot. Refills 0, Acute 06/29/22 0:00:00 EDT, 05/29/22 8:34:00 EST, Route to Pharmacy Electronically, [facility] #[id number], Partial fill upon patient request if the prescription... Start Date: 05/29/22 Stop Date: 06/29/22 Status: Ordered MiraLax oral powder for reconstitution = 17 Gm, By Mouth, Daily, PRN Constipation, dissolve in water before taking, # 255 Gm, 0 Refills, Acute 06/29/22 0:00:00 EDT, 05/29/22 8:35:00 EST, REC Powder, [facility] #[id number], Partial fill upon patient request if the prescription is for a... Start Date: 05/29/22 Stop Date: 06/29/22 Status: Ordered [place]-3 Fish Oil = 1,000 mg, By Mouth, [...] Confirmed Active Obese class I Confirmed Active Vital Signs Most recent to oldest [Reference Range]: 1 2 3 Height 160 cm (05/29/22 6:28 AM) 160 cm (05/27/22 3:20 PM) Weight 87.2 kg (05/29/22 6:28 AM) 91 kg (05/27/22 3:20 PM) Oxygen Saturation [94-100 %] 100 % (05/29/22 10:15 AM) 98 % (05/29/22 10:00 AM) 100 % (05/29/22 9:30 AM) Pulse Rate [55-90 bpm] 77 bpm (05/29/22 6:28 AM) Body Mass Index [18.5-24.99 kg/m2] 34.06 kg/m2 *>HHI* (05/29/22 6:28 AM) 35.55 kg/m2 *>HHI* (05/27/22 3:20 PM) Blood Pressure [90-138/55-84 mm Hg] 112/82mm Hg (05/29/22 10:00 AM) 113/75mm Hg (05/29/22 9:30 AM) 115/81mm Hg (05/29/22 9:15 AM) Respiratory Rate [16-30 br/min] 12 br/min *L* (05/29/22 10:00 AM) 18 br/min (05/29/22 9:44 AM) 11 br/min *L* (05/29/22 9:30 AM) Temperature [96.8-100.4 DegF] 98.2 DegF (05/29/22 9:30 AM) 97.5 DegF (05/29/22 8:30 AM) 97.0 DegF (05/29/22 6:28 AM) Liters per Minute 2 L/min (05/29/22 8:45 AM) 4 L/min (05/29/22 8:30 AM) Mode of Delivery (Oxygen) Room air (05/29/22 10:15 AM) Room air (05/29/22 10:00 AM) Room air (05/29/22 9:30 AM) Blood pressure sites Arm, right (05/29/22 10:00 AM) Arm, left (05/29/22 9:30 AM) Arm, left (05/29/22 9:15 AM) Temperature Route Temporal (05/29/22 9:30 AM) Temporal (05/29/22 8:30 AM) Temporal (05/29/22 6:28 AM) Dry Weight 87.2 kg (05/29/22 6:28 AM) 91 kg (05/27/22 3:20 PM) Weight Obtained Via Standing scale (05/29/22 6:28 AM) Patient/family stated (05/27/22 3:20 PM) Dry Weight Obtained Via Patient/family s tated (05/27/22 3:20 PM) Note * Page Bowens RN: PERFORM Event Display: Discharge/Transfer Note Hospital Authored Date: [id number] Nursing Discharge Note Entered On: 05/29/2022 10:29 EST Performed On: 05/29/2022 10:29 EST by Page Bowens RN Nursing Discharge Note 2 Discharge Time : 05/29/2022 10:23 EST Discharge Level of Care at Discharge : Home/[facility]oster Care Patient Left Unit Via : Wheelchair Patient Accompanied Off Unit with : Significant other DC Instructions Provided & Signed by Pt : Yes Patient Understands D/C Instructions : Yes Patient Instructions Discharge Signed : Yes Did Pt have Specialty Bed or Wound Vac : No Page Bowens RN - 05/29/2022 10:29 EST * Page Bowens RN: PERFORM Event Display: Patient Education/Instruction Authored Date: [id number] Inpatient Adult Discharge Instructions [address] [address] Name: SALVATORE GREENE : 1975 Visit: 05/29/2022 05:55:00 Current Date: 05/29/2022 08:41 Account: [id number] Inpatient Adult Discharge Instructions We would like [...] and their families. Surveys are administered by [employer] ?? If further treatment with your primary care physician or another doctor is recommended, it is important for you to keep the appointment. Call your primary care physician or return to the Emergency Department immediately if your condition worsens, fails to improve, or new symptoms develop. If you need to find a doctor, you can call [facility] for a referral at [phone] or toll free at [phone]) or log in to [email or web address].. ?? You can view and manage your care through the patient portal or by using a health care jayshree of your choosing. [employer] is a website that allows you to securely view your medical information including your hospital discharge summary, office visit summaries, medications and follow-up visits. You can also request appointments, renew medications, and request access to your medical information using a health care jayshree of your choosing, or just ask a question. You can enroll at [email or web address] or register during your next office visit. You have been discharged from [facility], Patient Care Unit: [facility]. If you have any questions regarding these instructions after you leave, please call us and we will be happy to assist you. [facility] Your Care Team Attending Physician Arianna Alcantara MD Consulting Providers Marina Liu MD Discharging Providers Arianna Alcantara MD Reason for Admission [facility]ITU[facility] CS Tests Performed Below is a partial list of the tests performed during your hospitalization. You may have had other tests and procedures not included in this list. Please discuss all test results with your provider. Primary Care Provider Jojo Seymour MD Advance Directive Health Care Proxy on File No Discharge Vitals Temperature: 97.5 DegF Height: 160 cm Pulse Rate: 77 bpm Weight: 87.2 kg Respiratory Rate: 24 br/min Body Mass Index:??34.06 kg/m2??Critical Systolic Blood Pressure: 123 mm Hg Body surface area: 1.97 Diastolic Blood Pressure: 76 mm Hg ?? Oxygen Saturation: 99 % ?? Studies Pending All tests and labs ordered during this hospital stay have been completed unless listed below. Please discuss all pending results with your provider listed above in these instructions. ?? HCG Urine (Urine HCG) What to do next Instructions From Your Doctor Discharge Orders Instructions from your Care Team See attached discharge instructions ?? Prescriptions Eprescribed Scheduled Follow-Up Appointments Wednesday 10:30 AM EDT ?? With: Mahin NICOLAS, Linda Jason Where: [facility] [address] [facility] [address]th [place] [address] [place] [address]- You Need to Schedule the Following Appointments Follow Up with??Arianna Alcantara When?? Where: [address] [facility] [place] [address]- Business (1) Follow Up with??Jojo Seymour MD When??In 0 days Where: [address] [place] [address]- Business (1) Discharge Medications SALVATORE GREENE :1975 Visit Date:05/29/2022 Medications: Please continue your medications until treatment is completed or stopped by your provider. Medications not listed below should be discontinued. Discuss any questions related to medications with your provider. What How Much When Instructions Next Dose New Acetaminophen (acetaminophen 500 mg oral capsule) 2 capsule Oral Every 8 hours as needed for for pain Pickup at [facility] #[id number] New Ibuprofen (ibuprofen 600 mg oral tablet) 1 tab(s) Oral Every 6 hours Pickup at [facility] #[id number] New Polyethylene Glycol 3350 (MiraLax oral powder for reconstitution) 17 gram Oral Daily as needed for Constipation dissolve in water before taking ?? Pickup at [facility] #[id number] Unchanged Amlodipine (amLODIPine 5 mg oral tablet) 1 tab(s) Oral Daily at Bedtime Unchanged Atorvastatin (atorvastatin 80 mg oral tablet) 1 tab(s) Oral Daily at Bedtime Unchanged Docusate (docusate sodium 100 mg oral capsule) 100 Milligram Oral Twice a day Unchanged Ezetimibe (ezetimibe 10 mg oral tablet) 1 tab(s) Oral Daily at Bedtime Unchanged Fenofibrate (fenofibrate 200 mg oral capsule) 1 capsule Oral Daily at Bedtime Unchanged Chicago-3 Polyunsaturated Fatty Acids (Chicago-3 Fish Oil) 1,000 Milligram Oral Daily Pharmacy Information [facility] #[id number]: [address] [place], [place] [id number] [phone] Test Results Below is a partial list of the most recent Laboratory test results done prior to this discharge. You may have had other tests and procedures not included in this list. Please discuss all test resultswith your provider. Allergies (NKA means No Known Allergies) No Known Medication Allergies Problems Active Problems??(5) Adenocarcinoma in situ?? Chronic constipation?? History of pancreatitis?? Hypertriglyceridemia?? Obese class I?? Education Materials Below is the list of Educational Leaflet Providered with your Discharge Instructions. Surgery Medical Daystay Surgical Overnight Discharge Instructions?? Valuables and Belongings I fully understand and agree that [facility] accepts no responsibility for all my personal [...] to send valuables and belongings home. ?? Date for Pt to Sign Valuables/Belongings: 05/29/22 06:28:00 ?? Valuables & Belongings ?? Clothes Electronic devices Jewelry Monetary Items Personal devices Miscellaneous Medications (Valuables) Valuables at Bedside Other: clothing, shoes, glasses in blue container. ?no cell no acharya ? Valuables Sent Home ? Valuables Sent to Security ? Other Discharge Information ? Pulmonary Rehab Status?? Pulmonary Rehab Discharge Status?? Respiratory Rate: 24 br/min ? Common Emergency Awareness Tips IS IT [...] are strongly encouraged to quit. Please call [facility] at [phone] or [phone] ([phone]) or log in to [email or web address] for referrals to smoking cessation programs. ?? The National Suicide Prevention Hotline is available 12/10 if you or someone you know needs to find a reason to keep living. By calling 3-565-020-[employer] (4563) you'll be connected to a skilled, trained counselor at a crisis center in your area. INPATIENT DISCHARGE INSTRUCTIONS SIGNATURE PAGE SALVATORE GREENE Location:[facility] Registration Date and Time:05/29/2022 05:55 EST Primary Care Physician: Dawn RATLIFF , [facility], SALVATORE SPARKS, have received the above patient education materials/instructions and have verbalized understanding. If ambulance or transport services are being used I further acknowledge being given a choice of service. ?? If you need to contact me, please call me at this number: . 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 Name:SALVATORE GREENE 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 Signature: Relationship to Patient: Witness Name/Signature: Date: * Page Bowens RN: PERFORM, SIGN, VERIFY Event Display: Patient Education Handout Authored Date: [id number] * Page Bowens RN: PERFORM Event Display: Patient Education Leaflets Authored Date: [id number] Surgery Medical Daystay Surgical Overnight Discharge Instructions [...] Team Personnel Name: Jojo Seymour MD Position: [facility] Outreach Member Role: PCP Address: Address: [address] [place] [address]- Care Team Related Persons Name: HANK GREENE Name: HANK SHEEHAN Address: [address] [place] [address]
--- OUTSIDE RECORDS SUMMARY | 2022-10-15 23:16 | XMS_ITS | Continuity of Care Document ---
Author Name Unknown Organization [facility] Address [address] [place] [address]- Care Team Providers Care Solar Lab Technician Name Role Phone Jojo Seymour MD Primary Care Physician [phone] [place]counter [facility] Date(s): 06/05/22 - 07/05/22 [facility] [address] [place] [address]- Allergies, Adverse Reactions, Alerts No Known Medication [...] opioid drug. Start Date: 05/04/22 Status: Ordered [place]-3 Fish Oil = 1,000 mg, By Mouth, [...] Team Personnel Name: Jojo Seymour MD Position: [facility] Outreach Member Role: PCP Address: Address: [address] [place] [address]- Care Team Related Persons Name: HANK GREENE Name: HANK SHEEHAN Address: home [address] [place] [id number]
--- NOTE | 2022-10-15 23:36 | ED_ITS ---
HPI - General Adult General Chief complaint: Back Pain/Injury Stated complaint: Weakness/side pain Time Seen by Provider: 10/15/22 23:21 Source: patient Mode of arrival: ambulatory Limitations: no limitations History of Present Illness HPI narrative: 47-year-old female came in for evaluation of right flank pain radiate down to the right thigh and right buttock area for about a week now, patient having trouble walking with limping due to the pain, no stool or urine incontinence, no weakness, no numbness, no fever, no chills. 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 Related Data Home Medications Medication Instructions Recorded Confirmed omega 8-kct-mfv-fish oil 1,000 mg 2 cap PO BID 02/17/22 02/17/22 (120 mg-180 mg) capsule amlodipine 5 mg tablet 5 mg PO DAILY 03/18/22 ezetimibe 10 mg tablet 10 mg PO DAILY 03/18/22 fenofibrate micronized 200 mg 200 mg PO DAILY 03/18/22 capsule Previous Rx's Medication Instructions Recorded atorvastatin 80 mg tablet 80 mg PO DAILY 90 days #90 tabs 05/21/20 docusate sodium 100 mg capsule 100 mg PO BEDTIME #90 caps 02/17/22 polyethylene glycol 3350 17 17 g PO DAILY #510 grams 02/17/22 gram/dose oral powder (Miralax) lpuluk-kirhhqdg-edcuybs 1 cap PO QID #120 caps 05/01/22 12,000-38,000-60,000 unit capsule,delayed rel (Creon) oxycodone 5 mg tablet 5 mg PO TID PRN pain #14 tabs 10/15/22 Allergies Allergy/AdvReac Type Severity Reaction Status Date / Time pravastatin AdvReac Unknown nausea, Verified 10/15/22 21:29 tired Review of Systems Review of Systems: All other systems are reviewed and are negative Constitutional: Reports as per HPI and Reports no additional constitutional complaints Eyes: Reports as per HPI and Reports no additional eye complaints Reports system reviewed and no additional complaints, except as documented Cardiovascular: Reports as per HPI and Reports no additional cardiovascular complaints Respiratory: Reports as per HPI and Reports no additional respiratory complaints Gastrointestinal: Reports as per HPI and Reports no additional gastrointestinal complaints Genitourinary: Reports no additional female genitourinary complaints Musculoskeletal: Reports no additional musculoskeletal complaints Skin/Breast: Reports system reviewed and no additional complaints, except as docu Psychiatric: Reports no additional psychiatric complaints Endocrine: Reports no additional endocrine complaints Hematologic/Lymphatic: Reports no additional hematologic/lymphatic complaints Allergic/Immunologic: Reports no additional allergic/immunologic complaints Reports system reviewed and no additional complaints, except as documented and Reports Abnormal speech present [facility] Past Medical History Medical History Anemia (~08/2019) Chronic idiopathic constipation Hx of pancreatitis Hyperlipidemia Hypertriglyceridemia Surgical History H/O tubal ligation S/P cholecystectomy Family History Family History Father Hypertension Dyslipidemia Pancreatitis, recurrent Mother Hypertension Diabetes Acute CVA (cerebrovascular accident) Maternal Grandmother Uterine cancer Renal failure Maternal Grandfather CAD (coronary artery disease) Maternal Uncle Myocardial infarction Social History Social History Household Members: Family Housing: House Do you presently have visiting nurse or other home services: No Unable to assess alcohol history related to: Unknown Alcohol intake: never Patient Tobacco Use Status: Never used Tobacco Smoked in Last 30 Days: No Use of substances other than those prescribed or required for medical reasons: No Advance Directives: No Advance Directives Information Provided: Yes Patient : No service: No Current occupational status: employed 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 Blood pressure normal. Heart rate normal. Respiration rate normal. Temperature normal. Oxygen saturation normal. Appearance: Alert. Oriented X3. No acute distress. Head: Normal external exam. Normocephalic. Atraumatic. No Mendoza signs noted. No raccoon eyes noted Eyes: PERRLA. EOMI. Conjunctiva and sclera normal. Eyelids normal. ENT: TM's Normal. Pharynx normal. Uvula midline. Moist mucous membranes. No trismus noted. No drooling noted. No muffled voice noted. Neck: Normal inspection. Neck supple. FROM. No adenopathy. Thyroid Normal. No meningeal signs. No neck mass noted. CVS: Normal heart rate and rhythm. Heart sound normal. No murmurs noted. Pulses normal throughout. Respiratory: No respiratory distress. Painless inspiration. Breath sounds normal. No wheezes/rales/rhonchi noted. Chest nontender. No accessory muscle usage noted or decreased air movement noted. Abdomen: Soft and nontender. Bowel sounds normal in all 4 quadrants. No distention noted. No organomegaly noted. No visible injury noted. Back: No CVA tenderness. Full range of motion noted. Skin: Skin warm and dry. Normal skin color. Normal skin turgor. No rashes/lesions/lacerations noted. Extremities: No lower extremity edema. Extremities exhibit normal range of motion. Extremities nontender. Neuro: Oriented X 3. Cranial nerve exam: II-XII are grossly intact No motor deficit. No sensory deficit. Reflexes normal. Course Course Course Narrative: Patient received 2 L of normal saline IV hydration with no improvement of lactic acid. Right flank pain, lactic acidosis with anion gap, will check ETOH/aspirin/pH/sepsis. Consider bicarb IV. Medications Administered Discontinued Medications Generic Name Dose Route Start Last Admin Trade Name Freq PRN Reason Stop Dose Admin Sodium Chloride 1,000 mls @ 999 mls/hr 10/16/22 00:55 10/16/22 02:08 Ns IV 10/16/22 01:55 Infused .Q1H1M ONE Infusion Sodium Chloride 1,000 mls @ 999 mls/hr 10/16/22 01:11 10/16/22 04:10 Ns IV 10/16/22 02:11 Infused .Q1H1M ONE Infusion Oxycodone HCl 5 mg 10/15/22 23:35 10/15/22 23:42 Oxycodone Hcl Immed Release 5 Mg Tablet PO 10/15/22 23:36 5 mg ONCE ONE Administration Medical Decision Making Differential Diagnosis Differential Diagnoses: The differential diagnosis associated with the presentation includes (Kidney stone, pyelonephritis, lumbar radiculopathy, cauda equine, electrolyte abnormality, UTI, severe anemia, aspirin toxicity, alcohol toxicity, lactic acidosis.) Admission/Observation Consideration of admission/observation: Escalation of care including admission/observation considered Consult Healthcare Provider Management of the patient was discussed with: Hospitalist (Dr. Del Castillo) Lab Data MDM Lab Attestation statement: I reviewed the patient's lab results. 10/15/22 23:49 10/16/22 03:17 Labs: Lab Results 10/15/22 10/15/22 10/15/22 Range/Units 23:49 23:49 23:49 WBC 11.0 H (4.8-10.8) X10*3/uL RBC 5.20 (4.20-5.50) X10*6/uL Hgb 13.8 (12.0-16.0) g/dl Hct 39.1 (37.0-47.0) % MCV 75.2 L (80.0-98.0) fL MCH 26.5 L (27.0-33.0) pg MCHC 35.3 H (31.0-35.0) g/dl RDW 14.9 (11.0-16.0) % Plt Count 251 (160-400) X10*3/uL MPV 9.8 (9.4-12.3) fL Immature Gran % (Auto) 0.4 (0.0-0.4) % Neut % (Auto) 62.1 (45-73) % Lymph % (Auto) 29.0 (20-40) % [place] % (Auto) 5.5 (2-11) % Eos % (Auto) 2.5 (0-4) % Baso % (Auto) 0.5 (0-2) % Lymph # (Auto) 3.2 (1.2-4.9) X10*3/uL [place] # (Auto) 0.6 (0.1-1.2) X10*3/uL Eos # (Auto) 0.3 (0.0-0.4) X10*3/uL Baso # (Auto) 0.1 (0.0-0.2) X10*3/uL Abs Immat Gran (auto) 0.04 H (0.00-0.03) X10*3/uL Absolute Neuts (auto) 6.8 (2.0-8.3) x10*3/uL Absolute Nucleated RBC 0.000 (0.0-0.012) X10*3/uL Nucleated RBC % (auto) 0.0 (0.0-0.2) /100WBC VBG pH (7.32-7.43) VBG pCO2 mmHg VBG pO2 mmHg VBG HCO3 (22-26) mmol/L VBG O2 Saturation % VBG Base Excess mmol/L Sodium 129 L (135-145) mmol/L Potassium 3.9 (3.3-5.1) mmol/L Chloride 97 (96-108) mmol/L Carbon Dioxide 9 L* D (22-29) mmol/L Anion Gap 27 H (12-20) BUN 17 H (9-16) mg/dL Creatinine 0.75 (0.5-1.4) mg/dL Estim Creat Clear Calc 97.1 Estimated GFR > 60 Random Glucose 95 (60-115) mg/dL Lactic Acid (0.5-2.0) mmol/L Calcium 9.5 (8.4-10.2) mg/dL Total Bilirubin 0.4 (0.0-1.0) mg/dL Direct Bilirubin < 0.1 (0.0-0.5) mg/dL AST 20 (5-31) U/L ALT 14 (0-31) U/L Alkaline Phosphatase 90 (39-117) U/L Total Creatine Kinase Cancelled Total Protein 9.7 H (6.5-8.0) g/dL Albumin 3.7 (3.5-5.0) g/dL Lipase 66 (8-78) U/L Urine Color Yellow Urine Appearance Clear Urine pH 5.5 (5.0-9.0) Ur Specific [place] 1.025 (1.005-1.025) Urine Protein 100 (2+) H (Neg-Trace) mg/dL Urine Glucose (UA) Negative (Negative) mg/dL Urine Ketones Negative (Negative) mg/dL Urine Blood Moderate (2+) H (Negative) Urine Nitrite Negative (Negative) Ur Leukocyte Esterase Negative (Negative) Urine RBC 6-10 H (0-2) /HPF Urine WBC 0-5 (0-5) /HPF Ur Squamous Epith Cells 0-2 (0-2) /HPF Urine Bacteria None Seen (None Seen) Hyaline Casts 0-2 (0-2) /LPF Urine Test (NEGATIVE) Salicylates (15-30) mg/dL Ethyl Alcohol < 10 mg/dL 10/15/22 10/16/22 10/16/22 Range/Units 23:49 03:17 04:45 WBC (4.8-10.8) X10*3/uL RBC (4.20-5.50) X10*6/uL Hgb (12.0-16.0) g/dl Hct (37.0-47.0) % MCV (80.0-98.0) fL MCH (27.0-33.0) pg MCHC (31.0-35.0) g/dl RDW (11.0-16.0) % Plt Count (160-400) X10*3/uL MPV (9.4-12.3) fL Immature Gran % (Auto) (0.0-0.4) % Neut % (Auto) (45-73) % Lymph % (Auto) (20-40) % [place] % (Auto) (2-11) % Eos % (Auto) (0-4) % Baso % (Auto) (0-2) % Lymph # (Auto) (1.2-4.9) X10*3/uL [place] # (Auto) (0.1-1.2) X10*3/uL Eos # (Auto) (0.0-0.4) X10*3/uL Baso # (Auto) (0.0-0.2) X10*3/uL Abs Immat Gran (auto) (0.00-0.03) X10*3/uL Absolute Neuts (auto) (2.0-8.3) x10*3/uL Absolute Nucleated RBC (0.0-0.012) X10*3/uL Nucleated RBC % (auto) (0.0-0.2) /100WBC VBG pH (7.32-7.43) VBG pCO2 mmHg VBG pO2 mmHg VBG HCO3 (22-26) mmol/L VBG O2 Saturation % VBG Base Excess mmol/L Sodium 135 (135-145) mmol/L Potassium 3.7 (3.3-5.1) mmol/L Chloride 104 (96-108) mmol/L Carbon Dioxide 7 L* D (22-29) mmol/L Anion Gap 28 H (12-20) BUN 13 (9-16) mg/dL Creatinine 0.66 (0.5-1.4) mg/dL Estim Creat Clear Calc 110.3 Estimated GFR > 60 Random Glucose 98 (60-115) mg/dL Lactic Acid 2.4 H* (0.5-2.0) mmol/L Calcium 8.0 L D (8.4-10.2) mg/dL Total Bilirubin (0.0-1.0) mg/dL Direct Bilirubin (0.0-0.5) mg/dL AST (5-31) U/L ALT (0-31) U/L Alkaline Phosphatase (39-117) U/L Total Creatine Kinase 64 Total Protein (6.5-8.0) g/dL Albumin (3.5-5.0) g/dL Lipase (8-78) U/L Urine Color Urine Appearance Urine pH (5.0-9.0) Ur Specific [place] (1.005-1.025) Urine Protein (Neg-Trace) mg/dL Urine Glucose (UA) (Negative) mg/dL Urine Ketones (Negative) mg/dL Urine Blood (Negative) Urine Nitrite (Negative) Ur Leukocyte Esterase (Negative) Urine RBC (0-2) /HPF Urine WBC (0-5) /HPF Ur Squamous Epith Cells (0-2) /HPF Urine Bacteria (None Seen) Hyaline Casts (0-2) /LPF Urine Test NEGATIVE (NEGATIVE) Salicylates (15-30) mg/dL Ethyl Alcohol mg/dL 10/16/22 10/16/22 Range/Units 04:45 04:45 WBC (4.8-10.8) X10*3/uL RBC (4.20-5.50) X10*6/uL Hgb (12.0-16.0) g/dl Hct (37.0-47.0) % MCV (80.0-98.0) fL MCH (27.0-33.0) pg MCHC (31.0-35.0) g/dl RDW (11.0-16.0) % Plt Count (160-400) X10*3/uL MPV (9.4-12.3) fL Immature Gran % (Auto) (0.0-0.4) % Neut % (Auto) (45-73) % Lymph % (Auto) (20-40) % [place] % (Auto) (2-11) % Eos % (Auto) (0-4) % Baso % (Auto) (0-2) % Lymph # (Auto) (1.2-4.9) X10*3/uL [place] # (Auto) (0.1-1.2) X10*3/uL Eos # (Auto) (0.0-0.4) X10*3/uL Baso # (Auto) (0.0-0.2) X10*3/uL Abs Immat Gran (auto) (0.00-0.03) X10*3/uL Absolute Neuts (auto) (2.0-8.3) x10*3/uL Absolute Nucleated RBC (0.0-0.012) X10*3/uL Nucleated RBC % (auto) (0.0-0.2) /100WBC VBG pH 7.46 H (7.32-7.43) VBG pCO2 31 mmHg VBG pO2 78 mmHg VBG HCO3 22 (22-26) mmol/L VBG O2 Saturation 96.0 % VBG Base Excess -0.6 mmol/L Sodium (135-145) mmol/L Potassium (3.3-5.1) mmol/L Chloride (96-108) mmol/L Carbon Dioxide (22-29) mmol/L Anion Gap (12-20) BUN (9-16) mg/dL Creatinine (0.5-1.4) mg/dL Estim Creat Clear Calc Estimated GFR Random Glucose (60-115) mg/dL Lactic Acid (0.5-2.0) mmol/L Calcium (8.4-10.2) mg/dL Total Bilirubin (0.0-1.0) mg/dL Direct Bilirubin (0.0-0.5) mg/dL AST (5-31) U/L ALT (0-31) U/L Alkaline Phosphatase (39-117) U/L Total Creatine Kinase Total Protein (6.5-8.0) g/dL Albumin (3.5-5.0) g/dL Lipase (8-78) U/L Urine Color Urine Appearance Urine pH (5.0-9.0) Ur Specific [place] (1.005-1.025) Urine Protein (Neg-Trace) mg/dL Urine Glucose (UA) (Negative) mg/dL Urine Ketones (Negative) mg/dL Urine Blood (Negative) Urine Nitrite (Negative) Ur Leukocyte Esterase (Negative) Urine RBC (0-2) /HPF Urine WBC (0-5) /HPF Ur Squamous Epith Cells (0-2) /HPF Urine Bacteria (None Seen) Hyaline Casts (0-2) /LPF Urine Test (NEGATIVE) Salicylates < 5.0 L (15-30) mg/dL Ethyl Alcohol mg/dL Independent Interpretation I performed an independent interpretation of an: CT Scan (Abdomen and pelvis: No acute intra-abdominal pathology.) Radiology Impression Discussion of test interpretation with radiology: I have reviewed the radiologist's reading. Discharge Plan Discharge Clinical Impression: Lumbar radiculopathy, Metabolic acidosis, Acute lactic acidosis Patient Disposition: Admitted As Inpatient
[2022-10-15] MEDS: oxyCODONE HCl Immed Release 5 MG TABLET PO (23:42)
[2022-10-15 23:54] LABS: Basophils Absolute Auto 0.1 X10*3/uL (0.0-0.2); Basophils Percent Auto 0.5 % (0-2); Eosinophils Absolute Auto 0.3 X10*3/uL (0.0-0.4); Eosinophils Percent Auto 2.5 % (0-4); Hematocrit 39.1 % (37.0-47.0); Hemoglobin 13.8 g/dl (12.0-16.0); Imm Gran Abs Auto 0.04 X10*3/uL (0.00-0.03); Imm Gran Pct Auto 0.4 % (0.0-0.4); Lymphocytes Absolute Auto 3.2 X10*3/uL (1.2-4.9); MANUAL DIFF FLAG NO; Mean Corpuscular HGB Conc 35.3 g/dl (31.0-35.0); Mean Corpuscular Hemoglobin 26.5 pg (27.0-33.0); Mean Corpuscular Volume 75.2 fL (80.0-98.0); Mean Platelet Volume 9.8 fL (9.4-12.3); Monocytes Absolute Auto 0.6 X10*3/uL (0.1-1.2); Monocytes Percent Auto 5.5 % (2-11); Neutrophils Absolute Auto 6.8 x10*3/uL (2.0-8.3); Neutrophils Percent Auto 62.1 % (45-73); Platelet Count 251 X10*3/uL (160-400); Red Cell Distribution Width 14.9 % (11.0-16.0)
[2022-10-15 23:55] LABS: Appearance Urine Clear; Color Urine Yellow; Glucose Urine UA Negative (Negative); Leukocyte Esterase Urine Negative (Negative); Nitrite Urine Negative (Negative); PH 5.5 (5.0-9.0); Specific Gravity - Urine 1.025 (1.005-1.025); UMIC TRIGGER UACC YES; Urine Blood Moderate (2+) (Negative); Urine Ketones Negative (Negative); Urine Protein 100 (2+) mg/dL (Neg-Trace)
[2022-10-15 23:56] LABS: UPreg QC Valid YES; Urine Pregnancy NEGATIVE (NEGATIVE)
[2022-10-16] VITALS (9 sets, daily range): BP systolic 103–160; BP diastolic 57–90; PULSE 60–78; RESP 16–18; TEMP 36.4–36.8; O2SAT 97–99
[2022-10-16] LABS: Bacteria Urine None Seen (None Seen); Hyaline Casts Urine 0-2 /LPF (0-2); Squamous Epithelial Cell Urine 0-2 /HPF (0-2); WBC Urine 0-5 /HPF (0-5)
[2022-10-16 00:49] LABS: Albumin Level 3.7 g/dL (3.5-5.0); Alkaline Phosphatase 90 U/L (39-117); Anion Gap 27 (12-20); Bilirubin Direct < 0.1 mg/dL (0.0-0.5); Bilirubin Total 0.4 mg/dL (0.0-1.0); Blood Urea Nitrogen 17 mg/dL (9-16); Calcium 9.5 mg/dL (8.4-10.2); Chloride 97 mmol/L (96-108); Creatinine Clr Calc Pharmacy 97.1; Estimated Glomerular Filt Rate > 60; Glucose Random 95 mg/dL (60-115); Lipase 66 U/L (8-78); Potassium 3.9 mmol/L (3.3-5.1); Sodium 129 mmol/L (135-145); Total Protein 9.7 g/dL (6.5-8.0)
[2022-10-16 00:51] LABS: Carbon Dioxide 9 mmol/L (22-29)
[2022-10-16 00:57] LABS: Aspartate Amino Transferase 20 U/L (5-31)
[2022-10-16] MEDS: 0.9 % Sodium Chloride 1,000 ML 999 ML IV ×2 (01:01→02:08)
[2022-10-16 01:03] LABS: Alanine Aminotransferase 14 U/L (0-31)
[2022-10-16 04:15] LABS: Anion Gap 28 (12-20); Blood Urea Nitrogen 13 mg/dL (9-16); Carbon Dioxide 7 mmol/L (22-29); Chloride 104 mmol/L (96-108); Creatinine Clr Calc Pharmacy 110.3; Estimated Glomerular Filt Rate > 60; Glucose Random 98 mg/dL (60-115); Potassium 3.7 mmol/L (3.3-5.1); Sodium 135 mmol/L (135-145)
[2022-10-16 04:52] LABS: Venous Blood Gas Refer to POC result
[2022-10-16 04:53] LABS: VBG Base Excess -0.6 mmol/L; VBG HCO3 22 mmol/L (22-26); VBG pCO2 31 mmHg; VBG pH 7.46 (7.32-7.43); VBG pO2 78 mmHg
[2022-10-16 04:53] LABS: Ethanol < 10 mg/dL
[2022-10-16 05:01] LABS: Lactic Acid 2.4 mmol/L (0.5-2.0)
[2022-10-16 05:39] LABS: Salicylate < 5.0 mg/dL (15-30)
[2022-10-16 06:48] LABS: Reflex Lactate? Lactic Acid Added
--- NOTE | 2022-10-16 06:51 | P.HPHOSP_ITS ---
History of Present Illness Date of Service: 10/16/22 Chief Complaint: Back pain This is a 47-year-old female past medical history of cervical adenocarcinoma in- situ status post complete hysterectomy, hyperlipidemia, history of pancreatitis comes into the hospital with complaints of right back pain radiating to the leg and groin. Patient denies any recent trauma, injury, our intensive exercise, she denies any urinary symptoms including no dysuria frequency or urgency. She denies any fever no chills, no chest pain no abdominal pain nausea or vomiting, no diarrhea constipation, no urinary symptoms and no lower extremity edema On arrival to the ED hemodynamically stable no significant abnormal vitals Labs are significant for WBC count of 11, pH of 7.46, CO2 of 31, pending bicarb of [address] down after IV fluids to 7. Abdomen pelvic CT shows no acute findings in the abdomen or pelvis, no hydro psis or nephrolithiasis Review of Systems Review of Systems: Yes all other systems are reviewed and are negative [facility] Medical History Anemia (~08/2019) Chronic idiopathic constipation Hx of pancreatitis Hyperlipidemia Hypertriglyceridemia Family History Father Hypertension Dyslipidemia Pancreatitis, recurrent Mother Hypertension Diabetes Acute CVA (cerebrovascular accident) Maternal Grandmother Uterine cancer Renal failure Maternal Grandfather CAD (coronary artery disease) Maternal Uncle Myocardial infarction Surgical History H/O tubal ligation S/P cholecystectomy Social History Household Members: Family Housing: House Do you presently have visiting nurse or other home services: No Unable to assess alcohol history related to: Unknown Alcohol intake: never Patient Tobacco Use Status: Never used Tobacco Smoked in Last 30 Days: No Use of substances other than those prescribed or required for medical reasons: No Advance Directives: No Advance Directives Information Provided: Yes Patient : No service: No Current occupational status: employed 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 Allergies Allergy/AdvReac Type Severity Reaction Status Date / Time pravastatin AdvReac Unknown nausea, Verified 10/15/22 21:29 tired Home Medications Medication Instructions Recorded Confirmed Last Taken Type omega 0-gwq-xxy-fish oil 1,000 mg 2 cap PO BID 02/17/22 02/17/22 Unknown History (120 mg-180 mg) capsule amlodipine 5 mg tablet 5 mg PO DAILY 03/18/22 Unknown History ezetimibe 10 mg tablet 10 mg PO DAILY 03/18/22 Unknown History fenofibrate micronized 200 mg 200 mg PO DAILY 03/18/22 Unknown History capsule Physical Exam Vital Signs and Narrative: Vital Signs: Last Vital Signs Temp 97.6 F 10/16/22 06:29 Pulse 76 10/16/22 06:29 Resp 18 10/16/22 06:29 BP 118/77 10/16/22 06:29 Pulse Ox 97 10/16/22 06:29 O2 Del Method Room Air 10/16/22 06:29 BMI result Body Mass Index 35.8 Const: General: cooperative and no acute distress Orientation/consciousness: patient oriented x3 Eyes: General: appearance normal, both eyes and all related structures Resp: Effort & Inspection: normal respiratory effort Auscultation: clear to auscultation bilaterally Cardio: Rate: regular rate Rhythm: regular rhythm GI: Palpation (GI): Soft to palpation Auscultation: normal bowel sounds : Other: No CVA tenderness, Skin: General skin exam: no rashes or lesions noted Neuro: General: patient oriented x3 Cognition (Neuro): normal cognition Extrem: Other: Tender palpation of the musculoskeletal region on the right lower back General: Yes normal to inspection and Yes no pedal edema Results Labs 10/15/22 23:49 10/16/22 03:17 Labs: Laboratory Results - last 24 hr 10/15/22 10/15/22 10/15/22 23:49 23:49 23:49 MCV 75.2 L MCH 26.5 L MCHC 35.3 H RDW 14.9 Plt Count 251 MPV 9.8 Immature Gran % (Auto) 0.4 Neut % (Auto) 62.1 Lymph % (Auto) 29.0 [place] % (Auto) 5.5 Eos % (Auto) 2.5 Baso % (Auto) 0.5 Lymph # (Auto) 3.2 [place] # (Auto) 0.6 Eos # (Auto) 0.3 Baso # (Auto) 0.1 Abs Immat Gran (auto) 0.04 H Absolute Neuts (auto) 6.8 Absolute Nucleated RBC 0.000 Nucleated RBC % (auto) 0.0 VBG pH VBG pCO2 VBG pO2 VBG HCO3 VBG O2 Saturation VBG Base Excess Anion Gap 27 H Estim Creat Clear Calc 97.1 Estimated GFR > 60 Random Glucose 95 Lactic Acid Calcium 9.5 Total Bilirubin 0.4 Direct Bilirubin < 0.1 AST 20 ALT 14 Alkaline Phosphatase 90 Total Creatine Kinase Cancelled Total Protein 9.7 H Albumin 3.7 Lipase 66 Urine Color Yellow Urine Appearance Clear Urine pH 5.5 Ur Specific [place] 1.025 Urine Protein 100 (2+) H Urine Glucose (UA) Negative Urine Ketones Negative Urine Blood Moderate (2+) H Urine Nitrite Negative Ur Leukocyte Esterase Negative Urine RBC 6-10 H Urine WBC 0-5 Ur Squamous Epith Cells 0-2 Urine Bacteria None Seen Hyaline Casts 0-2 Urine Test Salicylates Ethyl Alcohol < 10 10/15/22 10/16/22 10/16/22 23:49 03:17 04:45 MCV MCH MCHC RDW Plt Count MPV Immature Gran % (Auto) Neut % (Auto) Lymph % (Auto) [place] % (Auto) Eos % (Auto) Baso % (Auto) Lymph # (Auto) [place] # (Auto) Eos # (Auto) Baso # (Auto) Abs Immat Gran (auto) Absolute Neuts (auto) Absolute Nucleated RBC Nucleated RBC % (auto) VBG pH VBG pCO2 VBG pO2 VBG HCO3 VBG O2 Saturation VBG Base Excess Anion Gap 28 H Estim Creat Clear Calc 110.3 Estimated GFR > 60 Random Glucose 98 Lactic Acid 2.4 H* Calcium 8.0 L D Total Bilirubin Direct Bilirubin AST ALT Alkaline Phosphatase Total Creatine Kinase 64 Total Protein Albumin Lipase Urine Color Urine Appearance Urine pH Ur Specific [place] Urine Protein Urine Glucose (UA) Urine Ketones Urine Blood Urine Nitrite Ur Leukocyte Esterase Urine RBC Urine WBC Ur Squamous Epith Cells Urine Bacteria Hyaline Casts Urine Test NEGATIVE Salicylates Ethyl Alcohol 10/16/22 10/16/22 04:45 04:45 MCV MCH MCHC RDW Plt Count MPV Immature Gran % (Auto) Neut % (Auto) Lymph % (Auto) [place] % (Auto) Eos % (Auto) Baso % (Auto) Lymph # (Auto) [place] # (Auto) Eos # (Auto) Baso # (Auto) Abs Immat Gran (auto) Absolute Neuts (auto) Absolute Nucleated RBC Nucleated RBC % (auto) VBG pH 7.46 H VBG pCO2 31 VBG pO2 78 VBG HCO3 22 VBG O2 Saturation 96.0 VBG Base Excess -0.6 Anion Gap Estim Creat Clear Calc Estimated GFR Random Glucose Lactic Acid Calcium Total Bilirubin Direct Bilirubin AST ALT Alkaline Phosphatase Total Creatine Kinase Total Protein Albumin Lipase Urine Color Urine Appearance Urine pH Ur Specific [place] Urine Protein Urine Glucose (UA) Urine Ketones Urine Blood Urine Nitrite Ur Leukocyte Esterase Urine RBC Urine WBC Ur Squamous Epith Cells Urine Bacteria Hyaline Casts Urine Test Salicylates < 5.0 L Ethyl Alcohol Imaging Radiologist's Impressions: Impressions Abdomen/Pelvis CT 10/16/22 01:20 IMPRESSION: No acute findings in the abdomen or pelvis. No hydronephrosis or nephrolithiasis. Fleischner guidelines were followed. Assessment and Plan (1) Lumbar radiculopathy: Status: Acute (2) Metabolic acidosis: Status: Acute (3) Acute lactic acidosis: Status: Acute Plan 47-year-old female with past medical history of hypertriglyceridemia, comes into the hospital with right flank pain # flank/back pain - likely secondary to lumbar radiculopathy/musculoskeletal - abdominal pelvic CT negative, UA negative, - no concern for pyelonephritis - will treat with lidocaine patch, cyclobenzaprine p.r.n. - monitor # metabolic acidosis - bicarb of 7, pH is 7.4 - unclear etiology at this time, salicylate level negative, denies taking any aspirin, no NSAIDs, does not drink alcohol, negative alcohol level, denies taking any methanol or any other type of drink - lactic acid is slightly elevated, no hyperglycemia - no TE - will give bicarb IV infusion - follow BMP - if bicarb remains low, consider Nephrology consult # acute lactic acidosis - possibly secondary to dehydration - will treat with IV fluids - trend DVT prophylaxis: Early ambulation Time Spent With Patient Time: Total time managing care of this patient today ____ minutes. Quality Stroke Does the patient have a stroke diagnosis?: No VTE Prior VTE?: No VTE Risk Level:: Medical - low VTE Device Contraindication: Treatment Not Indicated VTE Drug Contraindication: Treatment Not Indicated
[2022-10-16] MEDS: Lactated Ringers 1,000 ML 100 ML IVCONT (07:25)
[2022-10-16 07:44] LABS: ~Lactic Acid-LAB USE ONLY 2.4 mmol/L (0.5-2.0)
--- NOTE | 2022-10-16 07:52 | PC.NURSE ---
Lab called and reported critical Lactic Acid of 2.4. Message sent to provider.
[2022-10-16] MEDS: Sodium Bicarbonate 8.4% 150 MEQ in Dextrose 5 % 850 ML 100 MEQ IV (08:13)
--- NOTE | 2022-10-16 08:18 | PC.NURSE ---
Sodium Bi carb received from pharmacy and running.
[2022-10-16] MEDS: Lidocaine 4 % Patch ADH..PATCH 1 PATCH TRANSDERMA (08:27)
[2022-10-16] MEDS: Omeprazole 20 MG CAPSULE.DR PO ×2 (08:28→17:14)
[2022-10-16] MEDS: Cyclobenzaprine HCl 5 MG TABLET PO ×3 (08:28→21:59)
[2022-10-16] MEDS: Ibuprofen 400 MG TABLET PO (08:28)
[2022-10-16] MEDS: 0.9 % Sodium Chloride Flush 3 ML SYRINGE IVFLUSH ×2 (08:30→19:38)
--- NOTE | 2022-10-16 09:06 | PHA.MEDREC ---
Pharmacy Consult ? Medication Reconciliation Pharmacy has completed the medication reconciliation. Spoke to patient to confirm meds.
[2022-10-16 09:29] LABS: Reflex Lactate? 2 Y
[2022-10-16 09:41] LABS: Anion Gap 24 (12-20); Blood Urea Nitrogen 10 mg/dL (9-16); Calcium 8.6 mg/dL (8.4-10.2); Carbon Dioxide 9 mmol/L (22-29); Chloride 98 mmol/L (96-108); Estimated Glomerular Filt Rate > 60; Glucose Random 111 mg/dL (60-115); Potassium 3.5 mmol/L (3.3-5.1); Sodium 127 mmol/L (135-145)
--- NOTE | 2022-10-16 09:51 | PC.NURSE ---
Labs called with a Critical CO2 level of 9. Provider informed.
--- NOTE | 2022-10-16 10:48 | PM.EVENT ---
Event Note Date of Service: 10/16/22 Event Note: Seen and evaluated this morning Repeated labs showing Bicarb of 9 and low Sodium of 127 DC LR Keep sodium bicarb PT nephrology consult monitor urine I\O repeat BMP Time Spent With Patient Time: Total time managing care of this patient today ____ minutes.
[2022-10-16] MEDS: Ezetimibe 10 MG TABLET PO (10:53)
[2022-10-16] MEDS: Atorvastatin Calcium 80 MG TABLET PO (10:53)
[2022-10-16 11:09] LABS: Osmolality, Serum 287 mosm/kg (281-305)
--- NOTE | 2022-10-16 11:45 | PC.NURSE ---
Critical lactic acid level of 3 reported by lab (specimen grossly lipemic) , message sent to provider.
--- NOTE | 2022-10-16 12:15 | PC.NURSE ---
Pharmacy called for Pt creon not available in [facility], stated they will bring it up.
[2022-10-16 12:42] LABS: Amphetamine Screen Urine Not Detected (Not Detect); Barbiturates, Urine Not Detected (Not Detect); Benzodiazepines Screen Urine Not Detected (Not Detect); Cannabinoid Screen Urine Not Detected (Not Detect); Cocaine Screen Urine Not Detected (Not Detect); Fentanyl, urine Not Detected (Not Detect); Opiate Screen Urine Not Detected (Not Detect); Phencyclidine Screen Urine Not Detected (Not Detect)
[2022-10-16 12:46] LABS: HDL Cholesterol 25 mg/dL; Triglycerides 4630 mg/dL
[2022-10-16] MEDS: Lipase/Prot/Amylase 12/38/60K CAPSULE.DR 1 CAP PO ×3 (12:54→21:59)
[2022-10-16 12:58] LABS: Cholesterol 849 mg/dL
[2022-10-16 15:18] LABS: Anion Gap 22 (12-20); Blood Urea Nitrogen 9 mg/dL (9-16); Calcium 8.7 mg/dL (8.4-10.2); Carbon Dioxide 11 mmol/L (22-29); Chloride 98 mmol/L (96-108); Creatinine Clr Calc Pharmacy 110.3; Estimated Glomerular Filt Rate > 60; Glucose Random 84 mg/dL (60-115); Potassium 3.4 mmol/L (3.3-5.1); Sodium 128 mmol/L (135-145)
[2022-10-16 15:19] LABS: Osmolality Urine 238 mosm/kg (373-1093)
--- NOTE | 2022-10-16 16:17 | MHC.EDTECH ---
THIS PCT ASSUMED CARE OF PATIENT AT 1515 ,VITALS SIGN TAKEN AND BELONINGS LIST DONE ,THIS PCT IS TRANSPORTING PATIENT TO ROOM 350 ON MED SURGE .
[2022-10-16] MEDS: 0.9 % Sodium Chloride 1,000 ML 100 ML IVCONT (19:30)
[2022-10-16] MEDS: oxyCODONE HCl Immed Release 5 MG TABLET PO (19:44)
[2022-10-16 20:41] LABS: Anion Gap 23 (12-20); Blood Urea Nitrogen 8 mg/dL (9-16); Calcium 8.7 mg/dL (8.4-10.2); Carbon Dioxide 12 mmol/L (22-29); Chloride 98 mmol/L (96-108); Creatinine Clr Calc Pharmacy 110.3; Estimated Glomerular Filt Rate > 60; Glucose Random 95 mg/dL (60-115); Potassium 3.2 mmol/L (3.3-5.1); Sodium 130 mmol/L (135-145)
[2022-10-17 02:56] VITALS: BP 106/56; PULSE 73; RESP 14; TEMP 36; O2SAT 96
--- NOTE | 2022-10-17 03:22 | CONS_ITS ---
DATE OF SERVICE: REASON FOR CONSULTATION: I was asked to see patient to assist in evaluation and management of patient's abnormal labs with hyponatremia along with anion gap metabolic acidosis on the backdrop of severe hypertriglyceridemia. HISTORY OF PRESENT ILLNESS: In summary, the patient is a 47-year-old female with a history of cervical adeno CA in situ, status post hysterectomy, hyperlipidemia with relatively severe hypertriglyceridemia with triglycerides that over 4000 for which she gets evaluation and treatment at [facility]. She presents to the hospital with right back and leg pain. The patient denies any fever, sweats, or chills. No gross hematuria or dysuria. She denies any diarrhea, nausea, vomiting. She had routine labs done in the emergency room, which showed markedly abnormal labs with a serum bicarb of as low as 7 and anion gap as high as 25. Lactate level was 2-3 and serum sodium has ranged from 127 to 135, as mentioned, her triglycerides were over 4000. Since being admitted to the hospital, she is getting IV fluids and feeling bit better after she had some pain medication. PAST MEDICAL HISTORY: As noted above. Includes the anemia, hypertriglyceridemia, history of pancreatitis. MEDICATIONS: On admission are listed as amlodipine, Zetia, and fenofibrate. Her current medications on the MAY. SOCIAL HISTORY: She is a nonsmoker, nondrinker. No illicit drug use. Denies taking NSAIDs. FAMILY HISTORY: Notable for coronary disease as well as recurrent pancreatitis, unclear whether there is a family history of high triglycerides or lipids. REVIEW OF SYSTEMS: As noted above. PHYSICAL EXAMINATION: VITAL SIGNS: Blood pressure 120/70, heart rate in the 70s. HEAD: Atraumatic and normocephalic. NECK: Supple. Mucous membranes are moist. LUNGS: Clear. CARDIAC: Regular rate and rhythm without rub. ABDOMEN: Soft, nontender. Good bowel sounds. No CVA tenderness. EXTREMITIES: No edema. LABORATORY DATA: As mentioned. Serum sodiums ranged from 127 to 135, potassium 3.5, chloride 98, bicarb 9, anion gap 24, BUN 10, creatinine 0.68. Lactate level is ranging from 2.5 to 3.0, calcium 8.6, CPK of 50, triglycerides of 4630, cholesterol level 849. Hemoglobin 13.8, hematocrit 39, white count 11, platelet count 250. She had a blood gas that showed pH 7.46, pCO2 31, PO2 of 78, and a calculated bicarb of 22. She had a CAT scan of the abdomen and pelvis without IV contrast, which showed no acute findings. IMPRESSION: METABOLIC ABNORMALITIES IN A 47-YEAR-OLD WITH SEVERE HYPERLIPIDEMIA, NOTED TO HAVE ON THE CHEM-7 A LOW SERUM BICARB, ELEVATED ANION GAP AND SLIGHTLY ELEVATED LACTATE LEVEL ALONG WITH HYPONATREMIA. 1. Anion gap, depressed serum bicarb. If you look at the venous blood gas, you can see that the measured bicarb is 22, whereas on the chem-7, the measured bicarb is 9. I contacted the lab and asked them about the analyzer for the chemistries. He said one of the systems is down and using the older one. I then googled hyperlipidemia and impact on laboratory studies and clearly there is literature showing that high triglycerides in particular can have interference with accurate measurements of serum bicarb as well as serum lactate and serum sodium. Putting this all together, I think these are lab errors related to her high triglyceride levels. In particular, the venous blood gas shows a bicarb in the normal range, which would again support this. This would suggest that the blood gas measurement of the bicarb in this particular case which is calculated is more accurate than the measured one from the chem 7 because of the interference of the triglycerides on the measurement of the serum bicarb. 2. Likewise, the hyponatremia is likely due to the hyperlipidemic state causing a pseudo hyponatremia. This is supported by the serum osm, which is in the normal range despite low serum sodium. RECOMMENDATIONS: 1. At this time include, would discontinue the IV sodium bicarb and place her on LR to give her adequate hydration. Send a lab sample to [facility] to get a validation of the labs. I have contacted the lab and left a message for the laborer, so when this happens in the future that the lab should contact the hospitalist that there may be a lab error. 2. We will follow the patient closely with the team. MD SALINAS Browne/AMANDA / [phone]
[2022-10-17] MEDS: 0.9 % Sodium Chloride 1,000 ML 100 ML IVCONT ×2 (04:09→13:24)
[2022-10-17] MEDS: Omeprazole 20 MG CAPSULE.DR PO (06:14)
[2022-10-17 06:20] LABS: Hematocrit 36.1 % (37.0-47.0); Mean Corpuscular Hemoglobin 26.8 pg (27.0-33.0); Mean Corpuscular Volume 74.4 fL (80.0-98.0); Mean Platelet Volume 9.8 fL (9.4-12.3); Platelet Count 210 X10*3/uL (160-400); Red Blood Count 4.85 X10*6/uL (4.20-5.50); Red Cell Distribution Width 14.6 % (11.0-16.0)
[2022-10-17 07:42] VITALS: BP 127/71; PULSE 76; RESP 16; TEMP 36.3; O2SAT 97
[2022-10-17] MEDS: Cyclobenzaprine HCl 5 MG TABLET PO ×2 (08:09→14:43)
[2022-10-17] MEDS: Ezetimibe 10 MG TABLET PO (08:10)
[2022-10-17] MEDS: Lidocaine 4 % Patch ADH..PATCH 1 PATCH TRANSDERMA (08:10)
[2022-10-17] MEDS: Lipase/Prot/Amylase 12/38/60K CAPSULE.DR 1 CAP PO ×2 (08:10→11:44)
[2022-10-17] MEDS: Atorvastatin Calcium 80 MG TABLET PO (08:10)
[2022-10-17 08:32] LABS: VBG Base Excess 1.9 mmol/L; VBG HCO3 24 mmol/L (22-26); VBG pCO2 32 mmHg; VBG pH 7.48 (7.32-7.43); VBG pO2 104 mmHg
[2022-10-17 08:34] LABS: Alanine Aminotransferase 14 U/L (0-31); Albumin Level 3.1 g/dL (3.5-5.0); Alkaline Phosphatase 72 U/L (39-117); Anion Gap 29 (12-20); Aspartate Amino Transferase 16 U/L (5-31); Bilirubin Total 0.4 mg/dL (0.0-1.0); Blood Urea Nitrogen 9 mg/dL (9-16); Calcium 8.6 mg/dL (8.4-10.2); Carbon Dioxide 10 mmol/L (22-29); Chloride 97 mmol/L (96-108); Creatinine Clr Calc Pharmacy 110.3; Estimated Glomerular Filt Rate > 60; Glucose Random 89 mg/dL (60-115); Potassium 3.5 mmol/L (3.3-5.1); Sodium 131 mmol/L (135-145); Total Protein 7.1 g/dL (6.5-8.0)
[2022-10-17 08:35] LABS: Venous Blood Gas Refer to POC result
[2022-10-17] MEDS: Fenofibrate 160 MG TABLET PO (09:20)
[2022-10-17 12:44] LABS: HDL Cholesterol 23 mg/dL; Triglycerides 3398 mg/dL
[2022-10-17 13:11] LABS: Cholesterol 565 mg/dL
--- NOTE | 2022-10-17 14:46 | PM.DS ---
DS: Providers Provider Date of Service: 10/17/22 Date of admission: 10/16/22 06:43 Primary care physician: Jojo Seymour MD Consults: 10/16/22 09:50 Consult to Nephrology Routine Consulting Provider: Ez Bergeron Reason for consultation: Anion gap metabolic acidosis , hyponatremia DS: Diagnosis Discharge Diagnosis (1) Lumbar radiculopathy: Status: Acute (2) Metabolic acidosis: Status: Acute (3) Acute lactic acidosis: Status: Acute (4) Hypertriglyceridemia: Status: Acute DS: Summary Hospital Course Hospital Course: Admission note HPI This is a 47-year-old female past medical history of cervical adenocarcinoma in-situ status post complete hysterectomy, hyperlipidemia, history of pancreatitis comes into the hospital with complaints of right back pain radiating to the leg and groin.? Patient denies any recent trauma, injury, our intensive exercise, she denies any urinary symptoms including no dysuria frequency or urgency.? She denies any fever no chills, no chest pain no abdominal pain nausea or vomiting, no diarrhea constipation, no urinary symptoms and no lower extremity edema On arrival to the ED hemodynamically stable no significant abnormal vitals Labs are significant for WBC count of 11, pH of 7.46, CO2 of 31, pending bicarb of [address] down after IV fluids to 7.? Abdomen pelvic CT shows no acute findings in the abdomen or pelvis, no hydro psis or nephrolithiasis Hospital course The patient presented for left flank pain. images were negative for any acute findings. urine negative for infection. believed to be muscle strain and was treated with pain medication, muscle relaxant and physical therapy with good response as the patient felt much better the next morning and was able to ambulate with no significant pain. Her blood work on admission was concerning for MEtabolic acidosis with low Bicarb of 9 and mildly elevated lactic acid of 2.5. No infection, drug abuse or other known causes of anion gap acidosis recognized. Lipid profile showed significantly elevated TG of 4460 while on 3 different TG lowering agents. Evaluated by nephrology who believe her lab abnormalities are likely a result of high TG. a VBG was done showing normal Bicarb levels confirming this theory. repeated TG of 3300 at the day of discharge with no evidence of abdominal pain. Noted to have high Protein to Albumin ration. Electropheresis and immunofixation ordered. the abnormal ratio could be also a result of high TG. To follow with Cardiology soon, please call for early appointment Continue Baclofen as needed for muscle spasm increase activity as tolerated, do more stretching Time Spent with Patient Time attestation: Total time managing care of this patient today ____ minutes. Discharge coordination time: Less than 30 minutes Quality: Safe Use of Opioids Does Pt have an Active Cancer Diagnosis on the Problem List?: No Quality: Stroke Does the patient have a stroke diagnosis?: No Physical Exam Vital Signs: Vital Signs: Last Vital Signs Temp 97.3 F 10/17/22 07:42 Pulse 76 10/17/22 07:42 Resp 16 10/17/22 07:42 BP 127/71 10/17/22 07:42 Pulse Ox 97 10/17/22 07:42 O2 Del Method Room Air 10/17/22 07:42 BMI result Body Mass Index 35.8 Const: Other: Constitutional : Awake, interactive, not in distress Neck : Normal inspection, Supple Cardiovascular : RRR, no JVP, no lower extremity edema Respiratory : good bilateral air entry, no crackles, wheezes or rhonchi Gastrointestinal: soft, lax, Normal bowel sounds, Non tender Skin : Warm, Dry Neurological : Alert & oriented x3, No focal deficit DS: Data Data Completed and Pending Labs on day of discharge: Laboratory Results - last 24 hr 10/16/22 10/16/22 10/16/22 12:18 14:22 20:11 WBC RBC Hgb Hct MCV MCH MCHC RDW Plt Count MPV Absolute Nucleated RBC Nucleated RBC % (auto) VBG pH VBG pCO2 VBG pO2 VBG HCO3 VBG O2 Saturation VBG Base Excess Sodium 128 L 130 L Potassium 3.4 3.2 L Chloride 98 98 Carbon Dioxide 11 L 12 L Anion Gap 22 H 23 H BUN 9 8 L Creatinine 0.66 0.66 Estim Creat Clear Calc 110.3 110.3 Estimated GFR > 60 > 60 Random Glucose 84 95 Calcium 8.7 8.7 Total Bilirubin AST ALT Alkaline Phosphatase Total Protein Albumin Triglycerides Cholesterol LDL Cholesterol, Calc HDL Cholesterol Urine Osmolality 238 L 10/17/22 10/17/22 10/17/22 05:49 05:49 05:49 WBC 8.0 RBC 4.85 Hgb 13.0 Hct 36.1 L MCV 74.4 L MCH 26.8 L MCHC 36.0 H RDW 14.6 Plt Count 210 MPV 9.8 Absolute Nucleated RBC 0.000 Nucleated RBC % (auto) 0.0 VBG pH VBG pCO2 VBG pO2 VBG HCO3 VBG O2 Saturation VBG Base Excess Sodium 131 L Cancelled Potassium 3.5 Cancelled Chloride 97 Cancelled Carbon Dioxide 10 L* Cancelled Anion Gap 29 H Cancelled BUN 9 Cancelled Creatinine 0.66 Cancelled Estim Creat Clear Calc 110.3 Cancelled Estimated GFR > 60 Cancelled Random Glucose 89 Cancelled Calcium 8.6 Cancelled Total Bilirubin 0.4 AST 16 ALT 14 Alkaline Phosphatase 72 Total Protein 7.1 Albumin 3.1 L Triglycerides 3398 Cholesterol 565 LDL Cholesterol, Calc TNP HDL Cholesterol 23 Urine Osmolality 10/17/22 08:22 WBC RBC Hgb Hct MCV MCH MCHC RDW Plt Count MPV Absolute Nucleated RBC Nucleated RBC % (auto) VBG pH 7.48 H VBG pCO2 32 VBG pO2 104 VBG HCO3 24 VBG O2 Saturation 99.0 VBG Base Excess 1.9 Sodium Potassium Chloride Carbon Dioxide Anion Gap BUN Creatinine Estim Creat Clear Calc Estimated GFR Random Glucose Calcium Total Bilirubin AST ALT Alkaline Phosphatase Total Protein Albumin Triglycerides Cholesterol LDL Cholesterol, Calc HDL Cholesterol Urine Osmolality Imaging CT scan - abdomen: Radiologist's impression: ITS Impressions Abdomen/Pelvis CT 10/16/22 01:20 IMPRESSION: No acute findings in the abdomen or pelvis. No hydronephrosis or nephrolithiasis. Fleischner guidelines were followed. Discharge Plan Discharge Anticipated Discharge Date/Time: 10/17/22 14:31 Patient Disposition: Home, Self-Care Discharge Diagnosis: Muscle strain Referrals: Jojo Seymour MD [Primary Care Provider] - Discharge Medications: New oxycodone 5 mg tablet 5 mg PO TID PRN (Reason: pain) Qty: 14 0RF Rx Instructions: Partial Fill upon patient request. cyclobenzaprine 5 mg Tablet 5 mg PO TID PRN (Reason: Muscle Spasm) Qty: 20 0RF Continued atorvastatin 80 mg tablet 80 mg PO DAILY 90 Days Qty: 90 3RF Creon 12,000-38,000 -60,000 unit capsule,delayed release(DR/EC) 1 cap PO QIDWMHS Rx Instructions: administer with meals and/or snacks diphenhydramine-acetaminophen [Tylenol PM Extra Strength] 25-500 mg Tablet 2 tab PO BEDTIME PRN (Reason: pain / sleep) docusate sodium 100 mg capsule 100 mg PO BEDTIME PRN (Reason: Constipation) omega 5-ngf-mse-fish oil 1,000 mg (120 mg-180 mg) capsule 2 cap PO BID polyethylene glycol 3350 [Miralax] 17 gram/dose powder 17 g PO DAILY Qty: 510 2RF fenofibrate micronized 200 mg capsule 200 mg PO DAILY ezetimibe 10 mg tablet 10 mg PO DAILY amlodipine 5 mg tablet 5 mg PO DAILY Discharge Orders: Discharge Order (Routine); Ordered 10/17/22 Ordered By: Frederick Song Diet: Advance to usual diet Activity on Discharge: As tolerated Stand Alone Forms: Patient Portal Discharge page Care Plan Goals: Read below Health Concerns: Read below Plan of Treatment: Read below Assessment: You were admitted to the hospital for evaluation of muscular pain and abnormal blood work. Treated with pain medicaitons and muscle relaxant with improvement in pain and function as you were able to participate with physical therapy. Your blood work showed significantly elevated Triglyceride which was discussed with [facility] who recommended close follow up with Cardiology clinic. Evaluated by laborer aquatic life who suggest that high Triglyceride affecting results which were confirmed to be normal values rather than actually being abnormal To follow with Cardiology soon, please call for early appointment Continue Baclofen as needed for muscle spasm increase activity as tolerated, do more stretching Patient Instructions: Lumbar Radiculopathy (ED)
--- NOTE | 2022-10-17 15:45 | MHC.CM.PN ---
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
[2022-10-21 13:28] LABS: Prot Elec - Albumin 4.5 g/dL (3.8-4.8); Prot Elec - Alpha1 0.2 g/dL (0.2-0.3); Prot Elec - Alpha2 0.5 g/dL (0.5-0.9); Prot Elec - Beta 1 0.3 g/dL (0.4-0.6); Prot Elec - Beta 2 0.2 g/dL (0.2-0.5); Prot Elec - Gamma 0.9 g/dL (0.8-1.7); Prot Elec - Total Protein 6.6 g/dL (6.1-8.1)
[2022-10-28 23:03] LABS: IgA 280 mg/dL (47-310); IgG 1162 mg/dL (600-1640); IgM 364 mg/dL (50-300)
== END 2022-10-17 15:32 | disposition home or self-care (01) ==
LOC: HO.ED 10-16 04:37 → HO.EDOVER 10-16 07:01 → HO.S3 10-16 14:00
PROVIDERS: Admitting Provider Internal Medicine; Emergency Provider Emergency Medicine; PCP Internal Medicine; Visit Provider Student in an Organized Health Care Education/Training Program
DX: S39.012A Strain of muscle, fascia and tendon of lower back, initial encounter (principal); X50.0XXA Overexertion from strenuous movement or load, initial encounter; M54.16 Radiculopathy, lumbar region; E87.21 Acute metabolic acidosis; E78.1 Pure hyperglyceridemia; E78.5 Hyperlipidemia, unspecified; E87.1 Hypo-osmolality and hyponatremia; R10.9 Unspecified abdominal pain; D64.9 Anemia, unspecified; Z79.899 Other long term (current) drug therapy; Z90.49 Acquired absence of other specified parts of digestive tract; Z98.51 Tubal ligation status; Z85.41 Personal history of malignant neoplasm of cervix uteri; Y93.9 Activity, unspecified; Y92.9 Unspecified place or not applicable; Y99.9 Unspecified external cause status
CPT/HCPCS: 36415; 74176; 80048; 80053; 80061; 80076; 80179; 80307; 81001; 81025; 82550; 82784; 82803; 83605; 83690; 83930; 83935; 84165; 84300; 85025; 85027; 86334; 96361; 96365; 96366; 97161; 99221; 99285

== ENCOUNTER → 2022-10-16 06:43 | Outpatient (BNV) | payer MEDICAID, SELFPAY | PROVIDERS: Admitting Provider Internal Medicine; Emergency Provider Emergency Medicine; PCP Internal Medicine; Visit Provider Internal Medicine | DX: M54.16 Radiculopathy, lumbar region (principal); E87.21 Acute metabolic acidosis; E78.1 Pure hyperglyceridemia | CPT/HCPCS: 99223; 99238; 99499 ==

== ENCOUNTER 2022-10-20 15:46 | Outpatient (AMB) | payer MEDICAID, SELFPAY ==
[2022-10-20 15:51] VITALS: BP 140/92; PULSE 101; BMI 35.6
--- NOTE | 2022-10-20 15:51 | MHC.OFFVIS ---
Intake Vital Signs 10/20/22 15:51 Height 5 ft 2 in Weight 194 lb 14.218 oz BMI 35.6 BP 140/92 H Blood Pressure Location Lt brachial Position Sitting Pulse 101 H Intake Visit Reasons: 3 month fu Intake Note: Windy presents in office as a est.patient for a 3month f/u for abdominal pain PT CC: pt reports having abdominal pain , pt denies any other GI Issues [employer] Leader Required: No Accompanied by: Self / Same As Patient Allergies pravastatin Adverse Reaction (Unknown, Verified 10/20/22 15:51) nausea, tired HPI 3 month fu HPI Details LAST VISIT (1) Hx of pancreatitis: ?Code(s): Z87.19 - Personal history of other diseases of the digestive system ?Plan: History of pancreatitis due to triglyceridemia.? Levels trending down.? Patient is followed by a lipid specialist at [facility].? Patient reports that she has an appointment with her next month.? I will start patient on Creon to help with her symptoms of postprandial abdominal bloating.? Diet for chronic pancreatitis discussed with patient.? List of food recommended as well as food to avoid given to patient. (2) Abdominal bloating: ?Code(s): R14.0 - Abdominal distension (gaseous) ?Plan: Occasional postprandial abdominal bloating.? Discussed with patient the importance of avoiding dietary triggers.? As mentioned above list provided to patient of food that she can eat.? Discussed with patient also the importance of moving her bowels and making sure that she eliminates her bowels completely.? Also discussed with patient trying to exercise and losing weight.? I will see patient in 3 months, sooner on as needed basis.? Patient is agreeable to this plan and verbalizes understanding of instructions.? She was given the opportunity to ask questions all questions answered.? TODAY'S VISIT: Patient is here today for follow-up and reports not few days ago she went to emergency room for abdominal pain radiating to her back. Patient was admitted for couple days for observation. Patient was discharged home with radiculopathy and back pain. Patient with discharge with lidocaine patch and cyclobenzaprine. Patient believes that she had pancreatitis again. Her triglycerides were above 3000 and usually when they are that high she will have abdominal discomfort. Patient denies any nausea or vomiting. Patient had CT scan done and no acute findings were identified. Patient reports that she is going to see her lipid specialist. Patient is currently on Praluent, fenofibrate, Zetia and fish oil. Patient might benefit from Repatha and will with the provider next visit. Patient is going to see her this month. Patient denies nausea or vomiting. Patient denies dyspepsia, dysphagia or odynophagia. Reports of low abdominal bloating. Denies any melena, hematochezia, unintentional weight loss or ribbon like stools. [facility] Medical History Anemia (~08/2019) Chronic idiopathic constipation Hx of pancreatitis Hyperlipidemia Hypertriglyceridemia Surgical History H/O tubal ligation S/P cholecystectomy Family History Father Hypertension Dyslipidemia Pancreatitis, recurrent Mother Hypertension Diabetes Acute CVA (cerebrovascular accident) Maternal Grandmother Uterine cancer Renal failure Maternal Grandfather CAD (coronary artery disease) Maternal Uncle Myocardial infarction Social History Household Members: Spouse and Children Housing: House Do you presently have visiting nurse or other home services: No Unable to assess alcohol history related to: Unknown Alcohol intake: never Patient Tobacco Use Status: Never used Tobacco service: No Current occupational status: employed 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 Review of Systems Const Denies weight gain and Denies weight loss ENT Reports no additional complaints, Denies dysphagia and Denies odynophagia Card Reports no additional complaints Resp Reports no additional complaints GI Reports abdominal pain, Denies belching, Denies melena, Reports bloating, Denies change in bowel habits, Denies dysphagia, Denies excessive flatus, Denies dyspepsia, Denies heartburn, Denies diarrhea, Denies loose stools, Denies nausea, Denies odynophagia and Denies vomiting Reports no additional complaints Musc Reports no additional complaints Neuro Reports no additional complaints Psych Reports no additional complaints Endo Reports no additional complaints Physical Exam Vital Signs: Last Vital Signs Pulse 101 H 10/20/22 15:51 BP 140/92 H 10/20/22 15:51 BMI result Body Mass Index 35.6 Const General: healthy appearing, no acute distress and well developed Nutritional Appearance: obese Orientation/consciousness: patient oriented x3 HEENT Head: Yes normal to inspection, Yes normocephalic and Yes atraumatic Face and sinus: Yes normal facial exam Mouth: Normal oral and palatal mucosa present Throat: Yes posterior oropharynx normal, Yes tonsils normal and Yes uvula midline Eyes General: appearance normal, both eyes and all related structures Neck Neck: Yes normal visual inspection, Yes full ROM and Yes trachea midline Thyroid: Thyroid normal Resp Effort & Inspection: normal respiratory effort, able to speak in complete sentences, no tracheal deviation and symmetric chest movement Auscultation: clear to auscultation bilaterally Cardio Rate: regular rate Heart sounds: S1 normal heart sound present and S2 normal heart sound present GI Inspection: Yes normal to inspection, No distended and Yes obesity Palpation (GI): Soft to palpation, not firm, nontender and No hepatosplenomegaly present Auscultation: normal bowel sounds General: Yes no CVA tenderness Back/Spine/Pelvis Back: no CVA tenderness Skin General skin exam: elasticity normal, turgor normal and dry skin Neuro General: patient oriented x3 Psych Appearance: grossly normal Mental Status: mental status grossly normal Speech and movement: Normal speech and movement present Assessment & Plan Assessment & Plan (1) Hypertriglyceridemia: Code(s): E78.1 - Pure hyperglyceridemia Plan: Patient is going to follow-up with her lipid specialist. She is going to see her on . Patient states that she might be admitted for closer evaluation. (2) Hx of pancreatitis: Code(s): Z87.19 - Personal history of other diseases of the digestive system Plan: History of pancreatitis in the past. Few days ago CT scan did not show any acute processes. Today essentially negative exam. Will repeat lipase and triglycerides. Patient will follow-up with us in 2 months, sooner on as needed basis. Patient is agreeable to this plan and verbalizes understanding of instructions. She was given the opportunity to ask questions and all questions answered. Thank you for allowing me to participate in her care Orders: Orders Lipase 10/21/22 R10.9 - Unspecified abdominal pain Triglycerides 10/21/22 E78.1 - Pure hyperglyceridemia Medications: Discontinued docusate sodium 100 mg PO BEDTIME 90 caps 3RF K59.00 - Constipation, unspecified [id number] 12,000-38,000 -60,000 unit administer with meals and/or snacks 1 cap PO QID 120 caps 3RF R10.9 - Unspecified abdominal pain Coding Level of Care Code Est Pt Level 4 (23305) Diagnoses Hypertriglyceridemia E78.1 Hx of pancreatitis Z87.19 Time Spent (min) 35 Comment 20 minutes spent with patient and additional 15 minutes spent reviewing her records
== END 2022-10-20 16:27 | disposition home or self-care (01) ==
PROVIDERS: PCP Internal Medicine; Visit Provider Nurse Practitioner Family
DX: E78.1 Pure hyperglyceridemia (principal); Z87.19 Personal history of other diseases of the digestive system
CPT/HCPCS: 99214

== ENCOUNTER → 2022-10-20 15:46 | Outpatient (BNVA) | payer MEDICAID, SELFPAY | PROVIDERS: PCP Internal Medicine; Visit Provider Nurse Practitioner Family | DX: E78.1 Pure hyperglyceridemia (principal); Z87.19 Personal history of other diseases of the digestive system | CPT/HCPCS: 99214 ==

== ENCOUNTER 2022-10-21 07:09 | Outpatient (REF) | payer MEDICAID, SELFPAY ==
[2022-10-21 08:46] LABS: Lipase 41 U/L (8-78); Triglycerides 2929 mg/dL
== END 2022-10-21 07:10 | disposition home or self-care (01) ==
LOC: HO.LAB 07:09
PROVIDERS: PCP Internal Medicine; Visit Provider Nurse Practitioner Family
DX: R10.9 Unspecified abdominal pain (principal); E78.1 Pure hyperglyceridemia
CPT/HCPCS: 36415; 83690; 84478

== ENCOUNTER 2023-05-18 10:23 | Outpatient (REF) | payer MEDICAID, SELFPAY ==
[2023-05-18 12:18] LABS: Alanine Aminotransferase 13 U/L (0-31); Albumin Level 3.9 g/dL (3.5-5.0); Alkaline Phosphatase 95 U/L (39-117); Anion Gap 15 (12-20); Aspartate Amino Transferase 12 U/L (5-31); Bilirubin Total 0.3 mg/dL (0.0-1.0); Blood Urea Nitrogen 11 mg/dL (9-16); Calcium 9.6 mg/dL (8.4-10.2); Carbon Dioxide 22 mmol/L (22-29); Chloride 100 mmol/L (96-108); Estimated Glomerular Filt Rate > 60; Glucose Random 121 mg/dL (60-115); Potassium 3.8 mmol/L (3.3-5.1); Sodium 133 mmol/L (135-145); Total Protein 8.3 g/dL (6.5-8.0)
== END 2023-05-18 10:24 | disposition home or self-care (01) ==
LOC: HO.LAB 10:23
PROVIDERS: PCP Internal Medicine; Visit Provider Internal Medicine
DX: E78.1 Pure hyperglyceridemia (principal)
CPT/HCPCS: 36415; 80053; 82550

== ENCOUNTER 2023-09-30 14:31 | Emergency (ER) | payer OTHER, SELFPAY ==
--- NOTE | 2023-09-30 | ECG_ITS ---
Test Reason : ABD PAIN Blood Pressure : / mmHG Vent. Rate : 077 BPM Atrial Rate : 077 BPM P-R Int : 144 ms QRS Dur : 078 ms QT Int : 440 ms P-R-T Axes : 036 006 008 degrees QTc Int : 497 ms Normal sinus rhythm Nonspecific ST changes Prolonged QT Abnormal ECG When compared with ECG of 13-MAY-2020 18:11, No significant change was found Referred By: Claribel Mcgill Electronically Signed By:Jean Pierre Monge
--- NOTE | ~2023-09-30 | CT_ITS ---
EXAMINATION: CT ABDOMEN AND PELVIS WITH CONTRAST CLINICAL INFORMATION: Epigastric pain. COMPARISON: CT abdomen pelvis dated 10/16/2022. TECHNIQUE: Multidetector volumetric images were obtained from the superior aspect of the liver through the pubic symphysis following administration 85 mL of Omnipaque 350 intravenous contrast. Sagittal and coronal reformatted images were obtained on the technologist's workstation. Oral contrast: No This CT examination was performed using dose optimization techniques as appropriate, variously including the following: *Automated exposure control *Adjustment of mA and/or kV according to patient size (this includes techniques or standardized protocols for targeted exams where dose is matched to indication/reason for exam; i.e. extremities or head) *Use of iterative reconstruction technique DLP: 819 mGy-cm FINDINGS: LUNG BASES: The visualized lung bases are unremarkable. LIVER, GALLBLADDER, AND BILIARY TREE: The liver is normal in size, shape, and attenuation. No focal hepatic lesion or biliary ductal dilatation is present. The gallbladder is surgically absent. PANCREAS: The head, uncinate process, and proximal body of the pancreas demonstrate decreased attenuation and enlargement consistent with inflammatory change. The pancreatic head and uncinate process have irregular margins. There is extensive peripancreatic inflammatory stranding and fluid. There is no rim-enhancing collection. SPLEEN: Unremarkable. ADRENAL GLANDS: Unremarkable. KIDNEYS AND URETERS: The kidneys are normal in size, shape, and attenuation. No hydronephrosis, hydroureter, or calculi seen. No perinephric stranding. There is a 7 mm low-attenuation lesion within the right kidney, likely representing a simple cyst. BLADDER: Unremarkable. GASTROINTESTINAL TRACT: The small and large bowel are unremarkable. The appendix is unremarkable. There is wall thickening of the duodenum and a few adjacent small bowel loops adjacent the head of the pancreas and peripancreatic inflammatory stranding, likely reactive. ABDOMINAL WALL: No significant hernia is appreciated. LYMPH NODES: Normal. VASCULAR: Normal caliber aorta. The portal veins and superior mesenteric vein enhance normally. The splenic vein remains patent and opacifies normally. PELVIC VISCERA: The uterus is not visualized. No adnexal mass. OSSEOUS STRUCTURES: Mild degenerative changes of the spine. CT/CT abdomen pelvis w IV con IMPRESSION: The head, uncinate process, and proximal body of the pancreas demonstrate decreased attenuation and enlargement consistent with inflammatory change. The pancreatic head and uncinate process have irregular margins. There is extensive peripancreatic inflammatory stranding and fluid. Necrotizing pancreatitis cannot be excluded. There is no rim-enhancing collection. Fleischner guidelines were followed. This critical result was discussed with Dr Mcgill at 6:45 PM on 09/30/2023 and it was ascertained that the content and urgency of the report was understood at the time of direct communication.
[2023-09-30 14:36] VITALS: BP 144/90; PULSE 98; O2SAT 98
[2023-09-30 14:45] VITALS: BP 166/100; PULSE 81; RESP 18; TEMP 36.6; O2SAT 100; BMI 36.5
--- NOTE | 2023-09-30 15:19 | ED.ABDPAIN ---
HPI - Abdominal Pain General Chief Complaint: Abdominal Pain Stated Complaint: ABD PAIN,VOMITING PER EMS Time Seen by Provider: 09/30/23 14:45 History of Present Illness HPI narrative: Patient is a 48-year-old female with a history of pancreatitis in the past. The pancreatitis was due to hyper triglyceride. Presented today with having similar abdominal pain. The pain is over the right upper quadrant. She claims not associated with food. It was very sudden in onset this morning. No fever no chills. Patient's pancreatitis require surgery at 1 point in time. Was in the intensive care unit. She is from home. No change in bowel movement. Positive nausea. Positive generalized malaise. No chance of being had a tubal ligation over 10 years ago. Related Data Home Medications ?Medication ?Instructions ?Recorded ?Confirmed omega 9-jwf-tjz-fish oil 1,000 mg 2 cap PO BID 02/17/22 10/16/22 (120 mg-180 mg) capsule amlodipine 5 mg tablet 5 mg PO DAILY 03/18/22 10/16/22 ezetimibe 10 mg tablet 10 mg PO DAILY 03/18/22 10/16/22 fenofibrate micronized 200 mg 200 mg PO DAILY 03/18/22 10/16/22 capsule diphenhydramine 25 2 tab PO BEDTIME PRN pain / sleep 10/16/22 10/16/22 mg-acetaminophen 500 mg tablet (Tylenol PM Extra Strength) docusate sodium 100 mg capsule 100 mg PO BEDTIME PRN Constipation 10/16/22 10/16/22 Previous Rx's ?Medication ?Instructions ?Recorded atorvastatin 80 mg tablet 80 mg PO DAILY 90 days #90 tabs 05/21/20 polyethylene glycol 3350 17 17 g PO DAILY #510 grams 02/17/22 gram/dose oral powder (Miralax) oxycodone 5 mg tablet 5 mg PO TID PRN pain #14 tabs 10/15/22 cyclobenzaprine 5 mg tablet 5 mg PO TID PRN Muscle Spasm #20 10/17/22 tabs oijjdc-ausfyfin-ggsgfaa 1 cap PO QID #120 caps 03/12/23 12,000-38,000-60,000 unit capsule,delayed rel (Creon) Allergies Allergy/AdvReac Type Severity Reaction Status Date / Time pravastatin AdvReac Unknown nausea, Verified 09/30/23 14:45 tired Review of Systems Review of Systems Positive abdominal pain Yes all other systems are reviewed and are negative [facility] Past Medical History Medical History Anemia (~08/2019) Chronic idiopathic constipation Hx of pancreatitis Hyperlipidemia Hypertriglyceridemia Surgical History H/O tubal ligation S/P cholecystectomy Family History Family History Father Hypertension Dyslipidemia Pancreatitis, recurrent Mother Hypertension Diabetes Acute CVA (cerebrovascular accident) Maternal Grandmother Uterine cancer Renal failure Maternal Grandfather CAD (coronary artery disease) Maternal Uncle Myocardial infarction Social History Social History Household Members: Spouse and Children Housing: House Do you presently have visiting nurse or other home services: No Unable to assess alcohol history related to: Unknown Alcohol intake: never Comment: sleeping Patient Tobacco Use Status: Never used Tobacco Advance Directives: No Advance Directives Information Provided: No Do you have a plan to hurt others: No Plan service: No Current occupational status: employed Current occupation: [employer] Physical Exam ED Vital Signs: Vital Signs - 24 hr 09/30/23 14:45 Temperature 97.9 F Pulse Rate 81 Respiratory Rate 18 Blood Pressure 166/100 H Pulse Oximetry 100 Oxygen Delivery Method Room Air BMI result Body Mass Index 36.5 Appearance: Sick appearing female complaining of abdominal pain, nausea Eyes: Pupils equal, round and reactive to light. ENT: Pharynx normal. Neck: Normal inspection. Neck supple. No lymph nodes noted. No crepitus CVS: Normal heart rate and rhythm. Pulses normal. Normal S1 and S2 Respiratory: No respiratory distress. Breath sounds normal. No Wheezing. No rales Abdomen: No pain no rebound no organomegaly. good BS x4 Skin: Skin warm and dry. Normal skin color. Normal skin turgor. Extremities: No lower extremity edema. Neurovascular intact to all extremities. No Lacerations. No Rash Neuro: Oriented X 3. No motor deficit. No sensory deficit. Moving all extermities. No slurred speech Medical Decision Making Medical Decision Making MDM Narrative: Patient presented in extremis abdominal pain. It turns out her triglyceride is extremely elevated. Her lipase is too high to give a definitive number. Consistent with pancreatitis consistent with previous episodes of pancreatitis secondary to elevated triglycerides. Patient was started on insulin drip. Started on D5 half-normal saline drip. Multiple doses of pain medication given. Atm Manager contacted. Patient will be going on the ICU for insulin drip. There will be no bed available at [facility] until after 19:00. Admission was placed. Patient will require admission. Differential Diagnosis Differential Diagnoses: The differential diagnosis associated with the presentation includes Pancreatitis, acute abdomen, obstruction, abscess, perforation Admission/Observation Consideration of admission/observation: Escalation of care including admission/observation considered Consult Healthcare Provider Management of the patient was discussed with: It Program Engagement Director (Atm Manager) Lab Data MDM Lab Attestation statement: I reviewed the patient's lab results. 09/30/23 15:15 09/30/23 15:15 Labs: Lab Results 09/30/23 09/30/23 09/30/23 Range/Units 15:15 15:18 15:21 VBG pH 7.53 H (7.32-7.43) VBG pCO2 29 mmHg VBG pO2 30 mmHg VBG HCO3 24 (22-26) mmol/L VBG O2 Saturation 52.0 % VBG Base Excess 3.4 mmol/L Sodium 132 L (135-145) mmol/L Potassium 3.4 (3.3-5.1) mmol/L Chloride 97 (96-108) mmol/L Carbon Dioxide 12 L (22-29) mmol/L Anion Gap 26 H (12-20) BUN 12 (9-16) mg/dL Creatinine 0.94 (0.5-1.4) mg/dL Estim Creat Clear Calc 77.4 Estimated GFR > 60 Random Glucose 129 H (60-115) mg/dL Calcium 9.4 (8.4-10.2) mg/dL Total Bilirubin 0.4 (0.0-1.0) mg/dL AST 17 (5-31) U/L ALT 15 (0-31) U/L Alkaline Phosphatase 105 (39-117) U/L Troponin I High Sens < 2.7 (<3.5-17.0) ng/L Total Protein 8.8 H (6.5-8.0) g/dL Albumin 4.1 (3.5-5.0) g/dL Triglycerides > 5680 H (<150) mg/dL Lipase > 3000 H (8-78) U/L Beta HCG, Quant < 2 mIU/mL Medications Administered Discontinued Medications Generic Name Dose Route Start Last Admin Trade Name Samantha PRN Reason Stop Dose Admin Hydromorphone HCl 0.5 mg 09/30/23 15:10 09/30/23 15:23 Hydromorphone Hcl 0.5 Mg/0.5 Ml Syringe IVPUSH 09/30/23 15:11 0.5 mg ONCE ONE Administration Protocol Hydromorphone HCl 1 mg 09/30/23 15:35 09/30/23 15:44 Hydromorphone Hcl 1 Mg/Ml Syringe IVPUSH 09/30/23 15:36 1 mg ONCE ONE Administration Protocol Sodium Chloride 1,000 mls @ 999 mls/hr 09/30/23 15:15 09/30/23 15:23 Ns IV 09/30/23 16:15 999 mls/hr .Q1H1M IVAN Administration Sodium Chloride 1,000 mls @ 999 mls/hr 09/30/23 15:15 09/30/23 15:23 Ns IV 09/30/23 16:15 999 mls/hr .Q1H1M IVAN Administration Ondansetron HCl 4 mg 09/30/23 15:10 09/30/23 15:23 Ondansetron Hcl 4 Mg/2 Ml Vial IVPUSH 09/30/23 15:11 4 mg ONCE ONE Administration Critical Care Time Critical Care Time Critical Care Time: Yes Total Critical Care Time: 40 Attestation: I have personally provided 40 minutes of critical care time exclusive of time spent on separately billable procedures. ?Time includes review of lab data, radiology results, discussion with consultants, and monitoring for potential decompensation. ?Interventions were performed as documented above Discharge Plan Discharge Clinical Impression: Acute pancreatitis Patient Disposition: Admitted As Inpatient Prescriptions: No Action Creon 12,000-38,000 -60,000 unit capsule,delayed release(DR/EC) 1 cap PO QID Qty: 120 3RF atorvastatin 80 mg tablet 80 mg PO DAILY 90 Days Qty: 90 3RF oxycodone 5 mg tablet 5 mg PO TID PRN (Reason: pain) Qty: 14 0RF Rx Instructions: Partial Fill upon patient request. diphenhydramine-acetaminophen [Tylenol PM Extra Strength] 25-500 mg Tablet 2 tab PO BEDTIME PRN (Reason: pain / sleep) docusate sodium 100 mg capsule 100 mg PO BEDTIME PRN (Reason: Constipation) cyclobenzaprine 5 mg Tablet 5 mg PO TID PRN (Reason: Muscle Spasm) Qty: 20 0RF omega 0-jlm-tcf-fish oil 1,000 mg (120 mg-180 mg) capsule 2 cap PO BID polyethylene glycol 3350 [Miralax] 17 gram/dose powder 17 g PO DAILY Qty: 510 2RF fenofibrate micronized 200 mg capsule 200 mg PO DAILY ezetimibe 10 mg tablet 10 mg PO DAILY amlodipine 5 mg tablet 5 mg PO DAILY Print Language: Slovenian
[2023-09-30] MEDS: ondansetron HCL 4 MG/2 ML VIAL IVPUSH (15:23)
[2023-09-30] MEDS: HYDROmorphone HCl 0.5 MG/0.5 ML SYRINGE IVPUSH ×4 (15:23→22:52)
[2023-09-30] MEDS: 0.9 % Sodium Chloride 1,000 ML 999 ML IV ×3 (15:23→21:41)
[2023-09-30 15:29] LABS: VBG Base Excess 3.4 mmol/L; VBG HCO3 24 mmol/L (22-26); VBG pCO2 29 mmHg; VBG pH 7.53 (7.32-7.43); VBG pO2 30 mmHg
[2023-09-30 15:31] LABS: Venous Blood Gas Refer to POC result
--- NOTE | 2023-09-30 15:34 | PC.NURSE ---
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 pt nauseous upon ED arrival. pt verbalizes pain is nonradiating. hx of pancreatitis, pt stating it feels the same. 20gIV placed in the left AC - labs obtained/sent to lab. IVF/medication administered per provider order. ekg performed. no sob/wob noted. respirations even/unlabored. pt waiting to go to CT at this time. plan of care ongoing. family bedside for support. call renae placed within reach.
[2023-09-30 15:43] LABS: Triglycerides > 5680 mg/dL (<150)
[2023-09-30] MEDS: HYDROmorphone HCl 1 MG/ML SYRINGE IVPUSH ×3 (15:44→17:46)
--- NOTE | 2023-09-30 15:45 | PC.NURSE ---
pt verbalizing increase in pain despite previous medication administration. pt remedicated per provider order
[2023-09-30 16:07] LABS: Alanine Aminotransferase 15 U/L (0-31); Albumin Level 4.1 g/dL (3.5-5.0); Alkaline Phosphatase 105 U/L (39-117); Anion Gap 26 (12-20); Aspartate Amino Transferase 17 U/L (5-31); Bilirubin Total 0.4 mg/dL (0.0-1.0); Blood Urea Nitrogen 12 mg/dL (9-16); Calcium 9.4 mg/dL (8.4-10.2); Carbon Dioxide 12 mmol/L (22-29); Chloride 97 mmol/L (96-108); Creatinine Clr Calc Pharmacy 77.4; Estimated Glomerular Filt Rate > 60; Glucose Random 129 mg/dL (60-115); Potassium 3.4 mmol/L (3.3-5.1); Sodium 132 mmol/L (135-145); Total Protein 8.8 g/dL (6.5-8.0)
[2023-09-30 16:10] LABS: HCG Quantitative < 2 mIU/mL
[2023-09-30 16:10] LABS: Troponin-I High Sensitivity < 2.7 ng/L (<3.5-17.0)
[2023-09-30 16:17] LABS: Lipase > 3000 U/L (8-78)
[2023-09-30 16:46] LABS: Basophils Absolute Auto 0.1 X10*3/uL (0.0-0.2); Basophils Percent Auto 0.3 % (0-2); Eosinophils Absolute Auto 0.1 X10*3/uL (0.0-0.4); Eosinophils Percent Auto 0.3 % (0-4); Hematocrit 44.6 % (37.0-47.0); Imm Gran Abs Auto 0.23 X10*3/uL (0.00-0.03); Lymphocytes Absolute Auto 3.7 X10*3/uL (1.2-4.9); Lymphocytes Percent Auto 15.7 % (20-40); MANUAL DIFF FLAG SCAN; Mean Corpuscular HGB Conc 35.9 g/dl (31.0-35.0); Mean Corpuscular Hemoglobin 25.7 pg (27.0-33.0); Mean Corpuscular Volume 71.6 fL (80.0-98.0); Monocytes Absolute Auto 1.1 X10*3/uL (0.1-1.2); Monocytes Percent Auto 4.5 % (2-11); NRBC Pct Auto 0.1 /100WBC (0.0-0.2); Neutrophils Absolute Auto 18.4 x10*3/uL (2.0-8.3); Neutrophils Percent Auto 78.2 % (45-73); PLT CLUMP 1; Red Blood Count 6.23 X10*6/uL (4.20-5.50); Red Cell Distribution Width 16.5 % (11.0-16.0); SCAN SMEAR FLAG 1
[2023-09-30 16:51] LABS: White Blood Count 23.6 X10*3/uL (4.8-10.8)
[2023-09-30] MEDS: Insulin Regular/NS 100 UNIT/100 ML PLAST..BAG IVCONT (16:57)
[2023-09-30] MEDS: Dextrose 5 % and 0.45 % NaCl 1,000 ML 200 ML IVCONT ×2 (17:00→22:53)
--- NOTE | 2023-09-30 17:03 | PC.NURSE ---
new 20gIV placed in the right AC - patent/intact. pt started on insulin drip @ 3u/hr per provider order at this time. dual verification w/ RNUyen at this time. pt still verbalizing 10/10 RUQ pain despite previous administration. provider/notified/aware. pt/family members spoke w/ ED provider in regards to plan of care moving forward. plan of care ongoing. call renae placed within reach.
[2023-09-30] MEDS: iohexoL 350 MG/ML 100 ML INFUS..BTL IV (17:25)
[2023-09-30 17:36] LABS: Platelet Count 348 X10*3/uL (160-400); SLIDE REVIEW VERIFIED
[2023-09-30 17:43] VITALS: BP 151/100; PULSE 101; RESP 18; TEMP 36.8; O2SAT 89
[2023-09-30 17:57] LABS: Glucose, Whole Blood 141 mg/dL (60-115)
[2023-09-30 18:00] LABS: Appearance Urine Clear; Color Urine Yellow; Glucose Urine UA Negative (Negative); Leukocyte Esterase Urine Negative (Negative); Nitrite Urine Negative (Negative); PH 6.5 (5.0-9.0); Specific Gravity - Urine 1.015 (1.005-1.025); UMIC TRIGGER UACC YES; Urine Blood Trace (Negative); Urine Ketones Trace mg/dL (Negative); Urine Protein 100 (2+) mg/dL (Neg-Trace)
--- NOTE | 2023-09-30 18:03 | PC.NURSE ---
per MD order - insulin drip stays at 3u/hr at this time. repeat POC obtained/documented by tech. pt waiting for bed assignment at this time. plan of care ongoing.
[2023-09-30 18:05] LABS: Bacteria Urine 1+ (None Seen); Hyaline Casts Urine 0-2 /LPF (0-2); WBC Urine 0-5 /HPF (0-5)
[2023-09-30] MEDS: Insulin Regular/NS 100 UNIT/100 ML PLAST..BAG 6 UNIT IVCONT (18:31)
--- NOTE | 2023-09-30 18:32 | PC.NURSE ---
discontinued the 3u/hr insulin drip at this time. new rate ordered for 6u/hr. new bag not pulled from the pyxis d/t it being the same medication that was previously infusing. insulin drip now running at 6u/hr at this time. plan of care ongoing. call renae placed within reach.
--- NOTE | 2023-09-30 18:33 | PHA.MEDREC ---
Pharmacy Consult ? Medication Reconciliation Pharmacy has completed the medication reconciliation.Spoke to patient and son at bedside to confirm med list . Patient didn't know what she was taken. son Called home and got pictures of bottles. Was only able to confirm Amlodipine 5 mg daily, however last fill date was 01-25-2023 for 90 days, Atorvastatin 80 mg daily, last fill date 04-21-23 for 90 days, Fenofibrate 200 mg daily, last fill date 12-29-22 for 90 days Creon 12,000-38,000-60,000 units 1 cap qid, last fill date was 03-11-23 for a 30 day supply, Lisinopril 5 mg last fill date 04-21-23 for 90 days.
[2023-09-30 19:24] LABS: Glucose, Whole Blood 159 mg/dL (60-115)
--- NOTE | 2023-09-30 19:37 | PC.NURSE ---
first contact iwth patient. reports increasing right sided abd pain. awaits ICU Bed. no active vomiting. skin pwd. moist mm. family at bedside. all aware of plan of care.
[2023-09-30] MEDS: cefTRIAXone sodium 2 GM in 0.9 % Sodium Chloride 50 ML IV (19:46)
[2023-09-30] MEDS: metroNIDAZOLE/NS 500 MG/100 ML PIGGYBACK 100 MG IV (20:18)
[2023-09-30 20:23] LABS: Glucose, Whole Blood 148 mg/dL (60-115)
[2023-09-30 21:03] LABS: Venous Blood Gas Refer to POC result
[2023-09-30 21:04] LABS: VBG HCO3 17 mmol/L (22-26); VBG pCO2 31 mmHg; VBG pH 7.34 (7.32-7.43); VBG pO2 141 mmHg
[2023-09-30 21:19] LABS: Lactic Acid 4.8 mmol/L (0.5-2.0)
[2023-09-30 21:26] LABS: Glucose, Whole Blood 167 mg/dL (60-115)
[2023-09-30 21:51] VITALS: BP 137/96; PULSE 97; RESP 17; TEMP 36.2; O2SAT 97
--- NOTE | 2023-09-30 22:24 | PC.NURSE ---
RN to WILFREDO Dey at [facility]. Pt will be transfered to [facility] [place] at midnight by gretchen
[2023-09-30 22:45] VITALS: BP 135/95; PULSE 101; RESP 17; TEMP 36.2; O2SAT 96
[2023-09-30 22:50] LABS: Glucose, Whole Blood 142 mg/dL (60-115)
[2023-09-30 22:57] LABS: Reflex Lactate? Lactic Acid Added
--- NOTE | 2023-09-30 23:12 | PC.NURSE ---
vomited bile. alert. cleansed. nausea meds requested.
[2023-10-01] MEDS: ondansetron HCL 4 MG/2 ML VIAL IVPUSH (00:11)
[2023-10-01] MEDS: HYDROmorphone HCl 1 MG/ML SYRINGE IVPUSH (00:11)
[2023-10-01 00:17] VITALS: BP 139/92; PULSE 99; RESP 16; TEMP 36.9; O2SAT 97
== END 2023-10-02 04:42 | disposition short-term general hospital (02) ==
PROVIDERS: Emergency Provider Emergency Medicine Emergency Medical Services; PCP Internal Medicine
DX: K85.91 Acute pancreatitis with uninfected necrosis, unspecified (principal); R10.11 Right upper quadrant pain; E78.5 Hyperlipidemia, unspecified; E78.1 Pure hyperglyceridemia; R10.13 Epigastric pain; Z79.899 Other long term (current) drug therapy
CPT/HCPCS: 36415; 74177; 80053; 81001; 82803; 82947; 83605; 83690; 84478; 84484; 84702; 85025; 93005; 96361; 96365; 96366; 96367; 96375; 96376; 99285; 99291; J0696; J1170; J1836; J2405; Q9967

== ENCOUNTER → 2023-09-30 14:48 | Outpatient (BNV) | payer OTHER, SELFPAY | PROVIDERS: Emergency Provider Emergency Medicine Emergency Medical Services; PCP Internal Medicine; Visit Provider Internal Medicine Cardiovascular Disease | DX: R94.31 Abnormal electrocardiogram [ECG] [EKG] (principal) | CPT/HCPCS: 93010 ==

== ENCOUNTER 2024-06-26 14:05 | Outpatient (AMB) | payer MEDICAID, SELFPAY ==
--- NOTE | 2024-06-26 14:12 | MHC.OFFVIS ---
Vital Signs 06/26/24 14:14 Height 5 ft 2 in Weight 138 lb 14.259 oz BMI 25.4 BP 117/79 Blood Pressure Location Lt brachial Position Sitting Pulse 92 Intake Visit Reasons: pancreatic fasciitis Intake Note: Windy presents in the office for pancreatic fascitis. CC: States that she has a COLO scheduled for [place]. She states at the moment she is feeling okay! 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 VITAL SIGNS:see workflow HEENT: Nonicteric sclerae, PERRLA, EOMI. Oropharynx clear. Moist mucous membranes. Conjunctivae appear well perfused. No thyroid mass. CHEST: Chest wall is nontender. HEART: Regular rate and rhythm without murmurs. LUNGS: Clear to auscultation bilaterally. ABDOMEN: Soft, positive bowel sounds, nontender, no organomegaly.no flank tenderness--scar noted SKIN: No rash, no excessive bruising, petechiae, or purpura. NEUROLOGIC: Cranial nerves II-XII intact without motor/sensory deficit. Psych: normal affect a/P: 1/ Pancreatitis, and hypertriglyceridemia --stopped drinking now, and improved diet PLAN: 1/check labs, incl lipids, and vitamins, 2/ might need to restart fibrates, statin etc --may need plasmaphoresis PFSH Medical History Acute lactic acidosis Metabolic acidosis Anemia (~08/2019) Hyperlipidemia Hx of pancreatitis Hypertriglyceridemia Chronic idiopathic constipation Surgical History Hx of colonoscopy History of esophagogastroduodenoscopy (EGD) H/O tubal ligation S/P cholecystectomy Family History Father Hypertension Dyslipidemia Pancreatitis, recurrent Mother Hypertension Diabetes Acute CVA (cerebrovascular accident) Maternal Grandmother Uterine cancer Renal failure Maternal Grandfather CAD (coronary artery disease) Maternal Uncle Myocardial infarction Social History Household Members: Spouse and Children Housing: House Do you presently have visiting nurse or other home services: No Unable to assess alcohol history related to: Unknown Alcohol intake: former Comment: sleeping Patient Tobacco Use Status: Never used Tobacco service: No Current occupational status: employed 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 Physical Exam Vital Signs: Last Vital Signs Pulse 92 06/26/24 14:14 BP 117/79 06/26/24 14:14 BMI result Body Mass Index 25.4 Assessment & Plan Assessment & Plan (1) Hypertriglyceridemia: Code(s): E78.1 - Pure hyperglyceridemia Category: Medical Plan: as above (2) Hx of pancreatitis: Code(s): Z87.19 - Personal history of other diseases of the digestive system Category: Medical Plan: as above (3) Hyperlipidemia: Code(s): E78.5 - Hyperlipidemia, unspecified Category: Medical Plan: as above Orders: Orders Vitamin B12 and Folate Today E78.1 - Pure hyperglyceridemia, E78.5 - Hyperlipidemia, unspecified, Z87.19 - Personal history of other diseases of the digestive system Vitamin B1 Today E78.1 - Pure hyperglyceridemia, E78.5 - Hyperlipidemia, unspecified, Z87.19 - Personal history of other diseases of the digestive system Vitamin B5 (Pantothenic Acid) Today E78.1 - Pure hyperglyceridemia, E78.5 - Hyperlipidemia, unspecified, Z87.19 - Personal history of other diseases of the digestive system Vitamin B6 Today E78.1 - Pure hyperglyceridemia, E78.5 - Hyperlipidemia, unspecified, Z87.19 - Personal history of other diseases of the digestive system Vitamin C Today E78.1 - Pure hyperglyceridemia, E78.5 - Hyperlipidemia, unspecified, Z87.19 - Personal history of other diseases of the digestive system Vitamin E Today E78.1 - Pure hyperglyceridemia, E78.5 - Hyperlipidemia, unspecified, Z87.19 - Personal history of other diseases of the digestive system Magnesium Today E78.1 - Pure hyperglyceridemia, E78.5 - Hyperlipidemia, unspecified, Z87.19 - Personal history of other diseases of the digestive system Comprehensive Met. Panel Today E78.1 - Pure hyperglyceridemia, E78.5 - Hyperlipidemia, unspecified, K75.81 - Nonalcoholic steatohepatitis (LEONARD), Z87.19 - Personal history of other diseases of the digestive system Lipid Panel with Reflex Today E78.1 - Pure hyperglyceridemia, E78.5 - Hyperlipidemia, unspecified, Z87.19 - Personal history of other diseases of the digestive system Lipoprotein A Today E78.1 - Pure hyperglyceridemia, E78.5 - Hyperlipidemia, unspecified, Z87.19 - Personal history of other diseases of the digestive system Lipoprotein Asso Phospholip A2 Today E78.1 - Pure hyperglyceridemia, E78.5 - Hyperlipidemia, unspecified, Z87.19 - Personal history of other diseases of the digestive system Apolipoprotein A1 Today E78.5 - Hyperlipidemia, unspecified Vitamin A Today E78.1 - Pure hyperglyceridemia, E78.5 - Hyperlipidemia, unspecified, Z87.19 - Personal history of other diseases of the digestive system Vitamin B3 (Niacin) Today E78.1 - Pure hyperglyceridemia, E78.5 - Hyperlipidemia, unspecified, Z87.19 - Personal history of other diseases of the digestive system Vitamin D 1,25 dihydroxy Today E78.1 - Pure hyperglyceridemia, E78.5 - Hyperlipidemia, unspecified, Z87.19 - Personal history of other diseases of the digestive system Vitamin D 25-OH Total Today E78.1 - Pure hyperglyceridemia, E78.5 - Hyperlipidemia, unspecified, Z87.19 - Personal history of other diseases of the digestive system Vitamin K1 Today E78.1 - Pure hyperglyceridemia, E78.5 - Hyperlipidemia, unspecified, Z87.19 - Personal history of other diseases of the digestive system Zinc Today E78.1 - Pure hyperglyceridemia, E78.5 - Hyperlipidemia, unspecified, Z87.19 - Personal history of other diseases of the digestive system Phosphorus Today E78.1 - Pure hyperglyceridemia, E78.5 - Hyperlipidemia, unspecified, E83.52 - Hypercalcemia, Z87.19 - Personal history of other diseases of the digestive system Complete Blood Count Auto Diff Today E78.1 - Pure hyperglyceridemia, E78.5 - Hyperlipidemia, unspecified, Z87.19 - Personal history of other diseases of the digestive system Ferritin Today E78.1 - Pure hyperglyceridemia, E78.5 - Hyperlipidemia, unspecified, Z87.19 - Personal history of other diseases of the digestive system Immunoglobulin G Subclasses Today E78.1 - Pure hyperglyceridemia, E78.5 - Hyperlipidemia, unspecified, Z87.19 - Personal history of other diseases of the digestive system LDL Cholesterol Direct Today E78.1 - Pure hyperglyceridemia, E78.5 - Hyperlipidemia, unspecified, Z87.19 - Personal history of other diseases of the digestive system Apolipoprotein B Today E78.5 - Hyperlipidemia, unspecified Coding Level of Care Code Est Pt Level 3 (03099) Diagnoses Hypertriglyceridemia E78.1 Hx of pancreatitis Z87.19 Hyperlipidemia E78.5
[2024-06-26 14:14] VITALS: BP 117/79; PULSE 92; BMI 25.4
--- OUTSIDE RECORDS SUMMARY | 2024-06-26 16:50 | XMS_ITS | Data Portability ---
Author Organization [facility], [facility] [address] Address [address] [place] [address] Care Team Providers Care Industrial Hygiene Manager Name Role Phone [facility] Primary Care Provider Assessment No assessment recorded. Plan of Treatment Reminders Order Date Submit Date Provider Last Modified By Organization Details Last Modified Time Details Appointments None recorded. Lab urinalysis, dipstick 2022 023 [email or web address] _[facility], [address] [place] [address], [phone], 19:19:16 culture, urine 2022 023 [facility], [address] [place] [address], [place], [address], 08:06:57 Referral None recorded. Procedures None recorded. Surgeries None recorded. Imaging None recorded. Medication Orders cephalexin 500 mg tablet 2022 023 [id number], [address] [place], [place], [id number], 3 19:19:19 naproxen 500 mg tablet 2022 023 [id number], [address], [place], [id number], 19:19:20 Patient TargetsNo targets recorded. Patient Instructions Encounter Date Encounter Id Patient Instructions Last Modified By Organization Details Last Modified Time 10/15/2022 [id number] Urinary Tract Infection (UTI) in Women: Care Instructions [email or web address] Not available 10/15/2022 19:19:12 getting back to normal after low back pain: care instructions Not available 10/15/2022 19:19:13 Drink lots of fluids. Take medications as prescribed. Do not do any activities that exacerbate your pain. Take walks and change positions frequently. Do not lie in bed all day. Light movement is helpful for recovery of the back. Use a heating pad or warm compress on the painful area of the back. A lidocaine patch can be used for topical relief. This is available over the counter. Once pain is improved, do back exercises to stretch and strengthen the back. If you develop severe pain, fevers/chills, weakness of limbs, loss of sensation in groin, or loss of control of bowel or bladder functions call 911 or go to the Emergency Department. Not available 10/15/2022 19:19:10 We recommend you get a repeat urinalysis in 2 weeks to ensure that any abnormalities have resolved. If urine abnormalities persist, you will likely need further testing or treatment. We will contact you within 3 to 5 days with the results of your lab test. If you have not heard back from us within that time frame, please feel free to contact our office regarding your results. Go to the Emergency Department immediately if your symptoms worsen or if you develop new symptoms that concern you. Drink plenty of fluids You should follow-up with your PCP in 4-5 days, or at any time if your condition does not improve or worsens. Any acute change should prompt a visit to the nearest Emergency Department. Not available 10/15/2022 19:19:03 Reason for Referral None Reported. Results Created Date Observation Date Name Description Value Unit Range Abnormal Flag Note LastModifiedBy Organization Detail LastModifiedTime 10/16/1910/18/2022 URINE CULTU LIANNE PURDY urine culture, routine FINAL REPORT Not Available [facility] ([facility]) [address] [facility], [place], [address], 10/18/2022 08:06:57 10/16/1910/18/2022 URINE CULTU RE, ROUTI NE result 1 COMMEN T Cultu re shows less than 10,00 0 colon y formi ng units of bacte filomean per shraddha liter of urine . This colon y count is not gener ally consi dered to be clini kehinde raymond longoria t. Not Available [facility] ([facility]) [address] [facility], [place], [address], 10/18/2022 08:06:57 10/16/19 23 10/15/2022 urina lysis , dipst ick Unknown Analyte Normal = light yellow Not Available [address] [place] [address], [place], [address], 10/15/2022 18:38:03 10/16/19 23 10/15/2022 urina lysis , dipst ick Unknown Analyte Normal = clear Not Available [address] [place] [address], [place], [address], 10/15/2022 18:38:03 10/16/19 23 10/15/2022 urina lysis , dipst ick Unknown Analyte Normal = negati ve Not Available [address] [place] [address], [place], [address], 10/15/2022 18:38:03 10/16/19 23 10/15/2022 urina lysis , dipst ick Unknown Analyte Normal = Negati ve Not Available [address] [place] [address], [place], [address], 10/15/2022 18:38:03 10/16/19 23 10/15/2022 urina lysis , dipst ick Unknown Analyte Normal = Negati ve Not Available [address] [place] [address], [place], [address], 10/15/2022 18:38:03 10/16/19 23 10/15/2022 urina lysis , dipst ick Unknown Analyte Normal = 1.010, 1.015, 1.020 Not Available lesly chester [address], [place], [address], 10/15/2022 18:38:03 10/16/19 23 10/15/2022 urina lysis , dipst ick Unknown Analyte Normal = Negati ve Not Available [facility] [address], [place], [address], 10/15/2022 18:38:03 10/16/19 23 10/15/2022 urina lysis , dipst ick Unknown Analyte Normal = 6.5, 7.0, 7.5, 8.0 Not Available [facility] [address], [place], [place], [address], 10/15/2022 18:38:03 10/16/19 23 10/15/2022 urina lysis , dipst ick Unknown Analyte Normal = Negati ve Not Available [facility] [address], [place], [place], [address], 10/15/2022 18:38:03 10/16/19 23 10/15/2022 urina lysis , dipst ick Unknown Analyte Normal = 0.2, 1.0 Not Available [address] [place] [address], [place], [address], 10/15/2022 18:38:03 10/16/19 23 10/15/2022 urina lysis , dipst ick Unknown Analyte Normal = Negati ve Not Available [facility] [address], [place], [address], 10/15/2022 18:38:03 10/16/19 23 10/15/2022 urina lysis , dipst ick Unknown Analyte Normal = Negati ve Not Available [address] [place] [address], [place], [address], 10/15/2022 18:38:03 10/16/19 23 10/15/2022 urina lysis , dipst ick Unknown Analyte Light Yellow Not Available lesly chester [address], [place], [address], 10/15/2022 18:38:03 10/16/19 23 10/15/2022 urina lysis , dipst ick Unknown Analyte Clear Not Available [address], [place], [address], 10/15/2022 18:38:03 10/16/1910/15/2022 urina lysis , dipst ick Unknown Analyte Negati ve Not Available [address], [place], [address], 10/15/2022 18:38:03 10/16/19 23 10/15/2022 urina lysis , dipst ick Unknown Analyte Negati ve Not Available lesly [address], [place], [address], 10/15/2022 18:38:03 10/16/19 23 10/15/2022 urina lysis , dipst ick Unknown Analyte Negati ve Not Available lesly [address], [place], [address], 10/15/2022 18:38:03 10/16/19 23 10/15/2022 urina lysis , dipst ick Unknown Analyte 1.030 Not Available [address], [place], [address], 10/15/2022 18:38:03 10/16/19 23 10/15/2022 urina lysis , dipst ick Unknown Analyte Modera te Not Available [address], [place], [address], 10/15/2022 18:38:03 10/16/19 23 10/15/2022 urina lysis , dipst ick Unknown Analyte 5.5 Not Available leo [address], [place], [address], 10/15/2022 18:38:03 10/16/19 23 10/15/2022 urina lysis , dipst ick Unknown Analyte 300 mg/dL Not Available lesly chester [address], [place], [address], 10/15/2022 18:38:03 10/16/19 23 10/15/2022 urina lysis , dipst ick Unknown Analyte 0.2 E.U./d L Not Available lesly chester [address], [place], [address], 10/15/2022 18:38:03 10/16/19 23 10/15/2022 urina lysis , dipst ick Unknown Analyte Negati ve Not Available [address] [address], [place], [address], 10/15/2022 18:38:03 10/16/19 23 10/15/2022 urina lysis , dipst ick Unknown Analyte Negati ve Not Available [address], [place], [address], 10/15/2022 18:38:03 Result Notes None recorded. Problems Name Problem SNOMED Code Status Onset Date Resolution Date Notes Provider Name and Address Organization Details Recorded Time Hypertensive disorder 11045110 Active Gudelia Shar joy, [place] - [facility] 18:37:31 Hypercholest erolemia 44868413 Active Gudelia Shar null, [place] - [facility] 18:37:42 Pancreatitis 86428249 Completed 10/15/2022 [facility] 3 18:37:56 Problem Notes None recorded. Procedures Surgical History Date Name Laterality Status Provider Name and Address Organization Details Recorded Time hysterectomy completed Gudelia Hanson [facility] 10/15/2022 18:36:42 Imaging Results None recorded. Procedure Notes None recorded. Medical Equipment None Reported. Allergies No known drug allergies Medications Name Sig Start Date Stop Date Status Note LastModified by Organization Details LastModified Time cephalexin 500 mg tablet Take 1 tablet every 8 hours by oral route with meals for 7 days. 023 active Not Available Not Available Not Avai lable naproxen 500 mg tablet Take 1 tablet twice a day by oral route with meals for 10 days. 023 active Not Available Not Available Not Avai lable Vitals Date Recorded Body height Body mass index (BMI) Body weight Pain severity - 0-10 verbal numeric rating [Score] - Reported Respiratory rate Oxygen saturation Oxygen saturation in Arterial blood by Pulse oximetry Heart rate Body temperature Systolic blood pressure Diastolic blood pressure Provider Name and Address Organization Details Last Updated DateTime 3 157.48 cm 35.8 kg/m2 45429.1 g 8 18 /min 98 % 98 % 83 /min 97.8 [degF] 145 mm[Hg] 89 mm[Hg] Gudelia Hanson [facility] 3 18:40:50 Social History Question Answer Notes LastModified by Organizat ion Details LastModified Time Tobacco Smoking Status Never Smoker [facility] 10/15/2022 18:36:21 What Is Your Level Of Alcohol Consumption? None Information not available 10/15/2022 Have You Had Direct Contact, Or Contact During Intimacy, With Monkeypox Rash, Scabs, Or Body Fluids From A Person With Monkeypox? No Information not available 10/15/2022 Do You Use Any Illicit Or Recreational Drugs? No Information not available 10/15/2022 Have You Recently Traveled Abroad? No Information not available 10/15/2022 Sex: Unknown Functional Status None recorded. Mental Status None recorded. Family History Relationship Description Onset Age of this Age Resolved Age Notes LastModified by Organization Details LastModified Time Mother Hypercholest erolemia nruszala Not available 2022 18:38:26 Mother Diabetes mellitus nruszala Not available 2022 18:38:35 Father Hypercholest erolemia nruszala Not available 2022 18:38:26 Father Diabetes mellitus nruszala Not available 2022 18:38:35 Medical History No medical history recorded. Gynecological HistoryNo gynecological history recorded. Obstetrics History GPAL:G 0 P 0 0 0 0 Past Encounters Encounter ID Performer Location Encounter Start Date Encounter Closed Date Diagnosis/Indication Diagnosis SNOMED-CT Code Diagnosis ICD10 Code Diagnosis Note [id number] [address] [address] 08/17/2018 09:49:03 08/17/2018 11:36:06 [id number] [place] [address] [address] 10/15/2022 18:12:59 10/15/2022 19:22:32 Acute low back pain 026402877 M54.50 Urinary tr act infectious disease 13753155 N39.0 Health Concerns Section Related Observation LastModified by Organization Detai ls LastModified Time None Recorded Concern Status LastModified by Organization Details LastModified Time None Recorded Advance Directives Directive None Recorded Payers Encounter Date Sequence Insurance Name Policy Number Policy Matute Covered Member ID Matute Member ID Guarantor Name 08/17/2018 1 [facility]MEDICAID HMO) [id number] Windy Hood [id number] Windy Tai 10/15/2022 1 [place] [facility] Windy Hood [id number] Windy Tai Notes Date Note Type Note Provider Name and Address Organization Details Recorded Time 10/15/2022 text/html Lower BackReport ed bypatient.Location :left; posterior Quality:aching; burning; constant Severity:moderate Duration:2 days Timing:acute; morning; daytime; nighttime Context:cannot identify; lifting Alleviating Factors:rest; NSAIDs Aggravating Factors:walking; lifting; carrying; bending/squatting; pushing/pulling Associated Symptoms:no weakness; no numbness; no swelling; no redness; no warmth; no ecchymosis; no catching/locking; no popping/clicking; no buckling; no grinding; no instability; no radiation down leg; no drainage; no fever; no chills; no weight loss; no change in bowel/bladder habits;tingling Previous Surgery:none Prior Imaging:none Previous Injections:none Previous PT:none Work Related:no Working:no Shelton Monahan NP [address] [place], [address], [place] - [facility] 10/15/2022 19:19:48 OBGyn Episode No OBEpisode recorded.
--- OUTSIDE RECORDS SUMMARY | 2024-06-26 16:51 | XMS_ITS | Clinical Summary ---
Author Organization [employer] Address [address] [place] [address] [address] [place] [address] Care Team Providers Care Hydrate Thickener Operator Name Role Phone Jojo Seymour MD Primary Care Provider [phone] Allergies Active Allergy Reactions Criticality Noted Date Comments Pravastatin 10/15/2022 Other reaction(s): nausea, tired Medications Creon [id number] units capsule TAKE 1 CAPSULE BY MOUTH FOUR TIMES DAILY WITH MEALS AND/OR SNACKS 05/01/19 23 Active melatonin 5 MG tabletIndication s:Primary insomnia 1 tab at bedtime 30 tablet 3 04/21/19 24 Active Blood Pressure kitIndications:P rimary hypertension To use daily 1 kit 05/02/19 25 Active pancrelipase, Mvu-Qglu-Lnor, (Creon) 13776-21825 units capsuleIndicatio ns:Hypertriglyce ridemia,Other chronic pancreatitis (CMS/HCC) Take 3 capsules (36,000 units of lipase) by mouth with breakfast, with lunch, and with evening meal. 120 capsule 05/02/19 25 Active FREESTYLE LITE test stripIndications :Hyperglycemia Use to test blood sugar 1 times daily 100 each 12 05/02/19 25 026 Active Lancets miscIndications: Hyperglycemia Use to test blood sugar 1 times daily 100 each 05/02/19 25 Active Alcohol Swabs 70 % padsIndications: Hyperglycemia Use to test blood sugar 1 times daily 100 each 05/02/19 25 Active Blood Glucose Monitoring Suppl (FreeStyle Sherman Lite) w/Device kitIndications:H yperglycemia Use to test blood sugar 1 times daily 1 kit 05/02/19 25 Active acetaminophen (Tylenol) 500 MG tabletIndication s:Other chronic pancreatitis (CMS/HCC) Take 2 tablets (1,000 mg) by mouth every 6 (six) hours if needed for mild pain. 90 tablet 3 06/02/19 25 Active ascorbic acid (Vitamin C) 500 MG tabletIndication s:Other chronic pancreatitis (CMS/HCC) Take 1 tablet (500 mg) by mouth Once per day. 30 tablet 3 06/02/19 25 Active baclofen (Lioresal) 10 MG tabletIndication s:Acute midline low back pain without sciatica Take 1 tablet (10 mg) by mouth 3 times daily. 90 tablet 3 06/02/19 25 Active cholecalciferol (Vitamin D-3) 50 MCG (2000 UT) capsuleIndicatio ns:Acute midline low back pain without sciatica Take 1 capsule (50 mcg) by mouth Once per day. 30 capsule 3 06/02/19 25 Active FeroSul 325 (65 Fe) MG tabletIndication s:Other chronic pancreatitis (CMS/HCC),Microc ytic anemia Take 1 tablet (325 mg) by mouth with breakfast. 30 tablet 06/02/19 25 Active metoclopramide (Reglan) 10 MG tabletIndication s:Microcytic anemia Take 1 tablet (10 mg) by mouth 2 times daily. 60 tablet 1 06/02/19 25 025 Active metoprolol tartrate (Lopressor) 25 MG tabletIndication s:Primary hypertension Take 1 tablet (25 mg) by mouth 2 times daily. 60 tablet 11 06/02/19 25 Active Multiple Vitamins-Iron (Tab-A-Susan/Iron ) tabletIndication s:Other chronic pancreatitis (CMS/HCC),Microc ytic anemia Take 1 tablet by mouth Once per day. 30 tablet 3 06/02/19 25 Active pantoprazole (ProtoNix) 40 MG EC tabletIndication s:Other chronic pancreatitis (CMS/HCC),Microc ytic anemia Take 1 tablet (40 mg) by mouth before breakfast. 30 tablet 06/02/19 25 Active metoprolol tartrate (Lopressor) 25 MG tablet Take 1 tablet by mouth 2 times daily. 025 Discontinued(Re order (will not trigger notification to Pharmacy)) pantoprazole (ProtoNix) 40 MG EC tablet Take 1 tablet by mouth before breakfast. 03/20/20 24 025 Discontinued(Re order (will not trigger notification to Pharmacy)) acetaminophen (Tylenol) 500 MG tablet Take 2 tablets by mouth every 6 (six) hours if needed. 03/20/20 025 Discontinued(Re order (will not trigger notification to Pharmacy)) ascorbic acid (Vitamin C) 500 MG tablet Take 1 tablet by mouth Once per day. 04/24/19 025 Discontinued(Re order (will not trigger notification to Pharmacy)) baclofen (Lioresal) 10 MG tablet Take 1 tablet by mouth 3 times daily. 04/24/19 025 Discontinued(Re order (will not trigger notification to Pharmacy)) cholecalciferol (Vitamin D-3) 125 MCG (5000 UT) capsule Take 1 capsule by mouth Once per day. 04/24/19 025 Discontinued(Re order (will not trigger notification to Pharmacy)) FeroSul 325 (65 Fe) MG tablet Take 1 tablet by mouth Once per day. 04/24/19 025 Discontinued(Re order (will not trigger notification to Pharmacy)) metoclopramide (Reglan) 10 MG tablet TAKE 1 TABLET BY MOUTH TWICE DAILY 1 HOURS BEFORE MEALS AND 1 TABLET EVERY NIGHT AT BEDTIME 04/24/19 025 Discontinued(Re order (will not trigger notification to Pharmacy)) Multiple Vitamins-Iron (Tab-A-Susan/Iron ) tablet Take 1 tablet by mouth Once per day. 04/24/19 025 Discontinued(Re order (will not trigger notification to Pharmacy)) metoprolol tartrate (Lopressor) 25 MG tablet Take 1 tablet (25 mg) by mouth 2 times daily. 60 tablet 11 06/01/19 025 Discontinued(Re order (will not trigger notification to Pharmacy)) Active Problems Problem Noted Date Diagnosed Date Microcytic anemia 06/01/2024 Primary hypertension 05/02/2024 Postinflammatory hyperpigmentation 03/11/2023 Assessment & Plan (03/11/2023 11:47 AM EST): Patient that presented visit with concerns of hyperpigmentation on abdomen will be referred to Dermatology. Hypertriglyceridemia 11/14/2020 Other chronic pancreatitis 11/14/2020 Encounters Date Type Department Care Team Description 06/02/2024 Population Health Risk Score [facility] ([facility]) Department [address] [address] Provider, Population Health Generic 06/01/2024 Orders Only [facility] [address] [place] [phone] Jojo Seymour MD Other chronic pancreatitis (CMS/HCC) (Primary Dx); Acute midline low back pain without sciatica; Primary hypertension; Nausea; Microcytic anemia 06/01/2024 Telephone [facility] [address] [place] [address] Jojo Seymour MD Med Refill 06/01/2024 Patient Outreach [facility] [address] [place] [address] Jojo Seymour MD Med Refill 05/30/2024 Refill [facility] [address] [place] [address] Jojo Seymour MD 05/02/2024 1:00 PM EST Office Visit [facility] [address] [place] [address] Jojo Seymour MD Hypertriglyceridemia (Primary Dx); Other chronic pancreatitis (CMS/HCC); Primary hypertension; Hyperglycemia 05/02/2024 Travel 04/21/[address] [facility] [address] [place] [phone] Jojo Seymour MD Verbal Orders 04/21/[address] [facility] [address] [place] [phone] Jojo Seymour MD FYI 04/19/2024 Patient Outreach [address] [address] Jojo Seymour MD Transition Of Care (Tcm) (HDF scheduled) from Last 3 Months Immunizations Name Administration Dates Next Due Hep B, adult 05/18/2017,02/25/2017 Influenza, IIV3, injectable 12/15/2019, 9 Moderna Covid-19 Vaccine 12+ 04/18/2021,08/22/19 21,07/24/2020 Social History Tobacco Use Types Packs/Day Years Used Date Smoking Tobacco: Never Smokeless Tobacco: Never Tobacco Cessation:Counseling Given: No Alcohol Use Standard Drinks/Week Comments Not Currently 0 (1 standard drink = 0.6 oz pur e alcohol) Depression Answer Date Recorded Patient Health Questionnaire-9 Score 4 05/02/2024 Patient Health Questionnaire-9 Score 4 05/02/2024 Last PHQ-9: Questionnaire Data Not on file 0 05/02/2024 Housing Stability Answer Date Recorded What is your housing situation today? I have soumya esqueda 05/02/[address] you li ve. Do you have problems with any of the following? None of the above 05/02/2024 Food Insecurity Answer Date Recorded Within the past 12 months, y ou worried that your food would run out before you got money to buy more: Never True 05/02/2024 Within the past 12 months,th e food you bought just didn't last and you didn't have enough money to get more: Never True 01/2025 Transportation Answer Date Recorded In the past 12 months, has l ack of transportation kept you from medical appts, meetings, work or from getting things needed for daily living? No 05/02/2024 Utilities Answer Date Recorded In the past 12 months, has t he electric, gas, oil or water company threatened to shut off services in your home? No 05/02/2024 Depression Answer Date Recorded Patient Health Questionnaire-2 Score 0 05/02/2024 Internet Access Answer Date Recorded Internet Access Q1 Yes 05/02/2024 Internet Access Q2 Not on file 05/02/2024 Comments Unknown Sex and Gender Information Value Date Recorded Sex Assigned at Female 01/19/2022 10:18 AM EDT Legal Sex Female 10:18 AM EDT Gender Identity Female 01/19/2022 10:18 AM EDT Sexual Orientation Choose not to disclose 2021 10:18 AM EDT Last Filed Vital Signs Vital Sign Reading Time Taken Comments Blood Pressure 121/84 05/02/2024 1:17 PM EST Pulse 88 05/02/2024 1:17 PM EST Temperature 36.7 ??C (98.1 ??F) 05/02/2024 1:17 PM ES T Respiratory Rate 19 05/02/2024 1:17 PM EST Oxygen Saturation 98% 05/02/2024 1:17 PM EST Inhaled Oxygen Concentration - - Weight 61.7 kg (136 lb) 05/02/2024 1:17 PM EST Height 163 cm (5' 4.17 ) 05/02/2024 1:17 PM EST Body Mass Index 23.22 05/02/2024 1:17 PM EST Plan of Treatment Upcoming Encounters Date Type Department Care Team (Late st Contact Info) Description 08/15/2024 1:45 PM EDT Office Visit [facility] [address] [place], [place] [phone] Jojo Seymour MD [address] [place] [address] Health Maintenance Due Date Last Done Comments CT Colonography 1975 Colonoscopy 1975 Colorectal Cancer Screening 1975 FIT DNA/Cologuard 1975 FIT 1975 FOBT 1975 HIV Screening 1975 Sigmoidoscopy 1975 Family Planning (PISQ) 1991 Hepatitis C Screening 1994 DTaP/Tdap/Td Vaccines (1 - Tdap) 1995 Hepatitis B Vaccines (3 of 3 - 19+ 3-dose series) 08/26/2017 05/18/2017, 02/25/2017 Mammogram 11/29/2022 11/29/2020 COVID-19 Vaccine ( season) 2023 04/18/2021, 08/21/2020, 07/24/2020 Influenza Vaccine (#1) 2023 , 12/15/2019, 02/10/2019, Additional history exists Tobacco Screening 04/21/2024 04/21/2023 Pap Smear 02/05/2025 02/05/2022 Alcohol/Substance Use Screening 05/02/2025 05/02/2024 Depression Screening 05/02/2025 05/02/2024, 05/02/19 25 SDOH Screening 05/02/2025 05/02/2024 Zoster Vaccines (1 of 2) 2026 Cervical Cancer Screening 02/05/2027 HPV/Cotest 02/05/2027 02/05/2022, 01/20, 02/05/2022 Lipid Panel 06/05/2027 06/04/2022, 05/20, 01/13/2022, Additional history exists RSV Patients and Patients Aged 60 years or older (1 - 1-dose 75+ series) 2051 HIB Vaccines Aged Out No longer eligi ble based on patient's age to complete this topic HPV Vaccines Aged Out No longer eligi ble based on patient's age to complete this topic Hepatitis A Vaccines Aged Out No long er eligible based on patient's age to complete this topic IPV Vaccines Aged Out No longer eligi ble based on patient's age to complete this topic Meningococcal Vaccine Aged Out No chandana abiola eligible based on patient's age to complete this topic Pneumococcal Vaccine: Pediatrics (0 to 5 Years) and At-Risk Patients (6 to 49) Years) Aged Out No longer eligible based on patient's age to complete this topic RSV under 20 months Aged Out No longe r eligible based on patient's age to complete this topic Rotavirus Vaccines Aged Out No longer eligible based on patient's age to complete this topic Procedures Procedure Name Priority Date/Time Associated Diagnosis Comments LIPID PANEL WITH REFLEX TO DIRECT LDL Routine 06/04/2022 9:17 AM EDT ZZZ HISTORICAL HPV E6/E7 RFLX MEDINA 16 18/45 Routine 02/05/2022 2:44 PM EST PAP SMEAR Routine 02/05/2022 2:44 PM EST MAMMOGRAM GENERIC Routine 11/29/2020 10: 00 AM EDT from Last 3 Months or Most Recently Relevant to Health Maintenance Results * Lipid Panel with Reflex to Direct LDL (06/04/2022 9:17 AM EDT) Triglycerides 939 mg/dL [facility] Comment:Desirable Triglyceri de: less than 150 mg/dLBorderline High Triglyceride 150-199 mg/dLHigh Triglyceride: 200-499 mg/dLVery High Triglyceride: greater than or equal to 5OO mg/dL Cholesterol 248 mg/dL [facility] Comment:Desirable Cholestero l: less than 200 mg/dLBorderline High Cholesterol: 200-239 mg/dLHigh Cholesterol: greater than 239 mg/dL LDL Cholesterol Calculated TNP mg/dl [facility] Comment:Unable to calculate the LDL. The formula of Friedwald,Duarte, and Marquis is only valid if the triglycerides areless than 400 mg/dl. HDL Cholesterol 38 mg/dL [facility] Comment:Desirable HDL: great er than 40 mg/dL Note: This HDL assay may give artificially low results in patients with liver disease. 06/04/2022 9:17 AM EDT 06/04/2022 9:17 AM EDT [facility] External Provider LAB BLO OD ORDERABLES Final Result [facility] [address] [place] [address] [phone] * (ABNORMAL) HPV E6/E7 RFLX MEDINA 16 18/45 (02/05/2022 2:44 PM EST) HPV 16 RNA DETECTED(A) NOT DETECTED [facility] HPV 18/45 RNA NOT DETECTED NOT DETECTED [facility] Comment: Methodology: Civil Clerk Mediated Amplification Cervical sources are required for HPV testing. If a vaginal source from a patient who has had a total hysterectomy with removal of cervix was submitted, please contact the testing laboratory for alternative testing options. THIS TEST WAS PERFORMED AT: [facility] [address] [place], [place] ??[phone] GUERO NIELSEN MD HPV mRNA E6/E7 rflx Detected(A) Not Detected [facility] Comment: Methodology: Civil Clerk-Mediated Amplification This assay detects E6/E7 viral messenger RNA (mRNA) from 14 high-risk HPV types (16,18,31,33,35,39,45,51,52,56,58,59,66,68). Cervical sources are required for HPV testing. If a vaginal source from a patient who has had a total hysterectomy with removal of cervix was submitted, please contact the testing laboratory for alternative testing options. For additional information, please refer to http://education.Cuculus/faq/KYM750z2 (This link if provided for information/ educational purposes only.) THIS TEST WAS PERFORMED AT: [facility] [address] [place] [address],[address] [place], [place] ??[phone] GUERO NIELSEN MD 02/05/2022 2:44 PM EST Rusty Rodriguez MD HISTORICAL/NON ORDERABLE LABS Fi nal Result [facility] * Pap Smear (02/05/2022 2:44 PM EST) 02/05/2022 2:44 PM EST 02/06/2022 9:50 AM EST Narrative [facility] - 03/03/2022 12:04 PM EST ----- ------- Name: Windy Tai I ? Age/Sex: 46/F ? : 1975 Unit#: [id number] ?? Attend Dr: Rusty Rodriguez MD ?Re02/05/22 ?Status: DEP REF ? Location: [facility]LAB ?Disch: ? ----- ------- SPEC : [id number] ?RECD: 02/06/22 ? STATUS: ??SOUT ? REQ NUM: [id number] ? LOU: 02/05/22-4744 ? SUBM DR: Rusty Rodriguez MD ? ENTERED: ??02/06/221232 ?SP TYPE: Pap Smr ?OTHR DR: Jojo Seymour MD ? ORDERED: ??Pap Smear, PAP path review ? Interpretation ?? Satisfactory for evaluation. ?? Negative for intraepithelial lesion or malignancy. ?? Acute inflammation present. ? HPV mRNA E6/E7: ?DETECTED ? This assay detects E6/E7 viral messenger RNA (mRNA) from 14 high-risk HPV types (16, 18, ?? 31, 33, 35, 39, 45, 51, 52, 56, 58, 59, 66, 68) ? HPV Type 16 RNA: ?DETECTED ?? HPV Type 18/45 RNA: ? Not Detected ? HPV testing performed by [facility], [place], [place]. ??See reference laboratory ?? portion of the EMR for entire report. ?Clinical Information LMP: 02/10 Previous PAP test: 2009, WNL ? Material Received ?? ThinPrep-Cervical Copies To: ?? Jojo Seymour MD ?? [address] ?? [place] [address] ? Rusty Rodriguez MD ?? [address] ?? [place] [address] ?? [phone] ----- ------- Signed (signature on file) Aroldo Danielle MD 03/03/22 1204 ? ----- ------- ? END OF REPORT ? us [facility] External Provider LAB CYT OLOGY ORDERABLES Final Result [facility] [address] [place] [address] [phone] * Mammography Report 1 (11/29/2020 10:00 AM EDT) Anatomical Region Laterality Modality Breast Bilateral Mammography 11/29/2020 10:0 0 AM EDT Narrative 12/02/2020 9:14 AM EDT Refer to the Notes tab for result details [facility] Procedure: Mammography Report 1 Procedure Note Provider, MD Randal - 06/14/2022 Refer to the Notes tab for result details [facility] Procedure: Mammography Report 1 Jojo Seymour MD IMG BI PROCEDURES Final Res ult from Last 3 Months or Most Recently Relevant to Health Maintenance Insurance [facility] Care Teams Hydrate Thickener Operator Relationship Specialty Start Date End Date Jojo Seymour MD [address] [place] [phone] PCP - General Internal Medicine 12/03/20 Julio NERI 04/25/24
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
--- OUTSIDE RECORDS SUMMARY | 2024-06-26 16:51 | XMS_ITS | Encounter Summary ---
Author Organization [facility] Address [address] [place] [address] Care Team Providers Care Gas Tester Name Role Phone Jojo Seymour Primary Care Provider [phone] Encounter Details Date Type Department Care Team (Late Contact Info) Description 04/17/2024 Lab Requisition [facility] [address] [place] [address] Mo Starkey PA [address] [place] [id number] Acute respiratory failure, unspecified whether with hypoxia or hypercapnia; No diagnosis Social History Tobacco Use Types Packs/Day Years Used Date Smoking Tobacco: Never Smokeless Tobacco: Never Comments Unknown Sex and Gender Information Value Date Recorded Sex Assigned at Female 03/21/2024 5:58 PM EST Legal Sex Female 3:38 PM EDT Gender Identity Female 05/17/2024 12:43 PM EST Sexual Orientation Not on file documented as of this encounter Plan of Treatment Upcoming Encounters Date Type Department Care Team (Late Contact Info) Description 07/06/2024 9:00 AM EDT Follow-Up [facility] 4th floor Cardiology Medicine [address] [place] [address] Poultry Helper: Elisha Montez PA [address] [place] [address] documented as of this encounter Procedures * Due to [place] [employer] law, this organization might not be sharing negative HIV tests. Procedure Name Priority Date/Time Associated Diagnosis Comments CBC AUTO DIFFERENTIAL Routine 04/17/2024 12:44 PM EST Acute respiratory failure, unspecified whether with hypoxia or hypercapnia (HCC) No diagnosis LIPASE Routine 04/17/2024 12:44 PM EST Acute respiratory failure, unspecified whether with hypoxia or hypercapnia (HCC) No diagnosis [ICD-10-CM] COMPREHENSIVE METABOLIC PANEL Routine 04/17/2024 12:44 PM EST Acute respiratory failure, unspecified whether with hypoxia or hypercapnia (HCC) No diagnosis documented in this encounter Results * Due to [place] [employer] law, this organization might not be sharing negative HIV tests. * (ABNORMAL) Lipase (04/17/2024 12:44 PM EST) Lipase 135(H) 13 - 60 U/L 04/18/2024 10:14 AM EST [facility] Blood Structure of peripheral vein / Unknown Venipuncture / Unknown 04/17/2024 12:44 PM EST 04/17/2024 12:44 PM EST us Mo NICOLAS LAB BLOOD ORDERABLES Final R esult [facility] [address] [place] [address], * (ABNORMAL) CBC Auto Differential (04/17/2024 12:44 PM EST) WBC 10.4 4.8 - 10.8 10*3/uL 04/17/2024 1:12 PM EST [facility] RBC 3.99(L) 4.20 - 5.40 10*6/uL 04/17/2024 1:12 PM EST [facility] Hemoglobin 10.0(L) 11.7 - 15.5 g/dL 04/17/2024 1:12 PM EST [facility] Hematocrit 31.1(L) 35.7 - 45.8 % 04/17/2024 1:12 PM EST [facility] MCV 77.9(L) 81.0 - 99.0 fL 04/17/2024 1:12 PM EST [facility] MCH 25.1(L) 26.0 - 34.0 pg 04/17/2024 1:12 PM EST [facility] MCHC 32.2 31.0 - 36.0 g/dL 04/17/2024 1:[address] [facility] RDW 15.3(H) 12.0 - 15.0 % 04/17/2024 1:12 PM EST [facility] RDW Standard Deviation 43.8 36.4 - 46.3 fL 04/17/2024 1:12 PM EST [facility] Platelets 278 140 - 440 10*3/uL 04/17/2024 1:12 PM EST [facility] MPV 9.9 9.4 - 12.3 fL 04/17/2024 1:[address] [facility] Neutrophil % 65.1 50.0 - 75.0 % 04/17/2024 1:12 PM EST [facility] Immature Grans % 0.4 0.0 - 0.9 % 04/17/2024 1:12 PM EST [facility] Lymphocyte % 27.9 20.0 - 44.0 % 04/17/2024 1:12 PM EST [facility] Monocyte % 4.5 0.0 - 14.0 % 04/17/2024 1:12 PM EST [facility] Eosinophil % 1.8 0.0 - 5.0 % 04/17/2024 1:12 PM EST [facility] Basophil % 0.3 0.0 - 2.0 % 04/17/2024 1:12 PM EST [facility] Neutrophil # 6.74 1.80 - 7.70 10*3/uL 04/17/2024 1:12 PM EST [facility] Immature Grans # 0.04(H) 0.00 - 0.03 10*3/uL 04/17/2024 1:12 PM EST [facility] Lymphocyte # 2.90 1.00 - 4.75 10*3/uL 04/17/2024 1:12 PM EST [facility] Monocyte # 0.50 0.00 - 0.60 10*3/uL 04/17/2024 1:12 PM EST [facility] Eosinophil # 0.20 0.00 - 0.80 10*3/uL 04/17/2024 1:12 PM EST [facility] Basophil # <0.03 0.00 - 0.20 10*3/uL 04/17/2024 1:12 PM EST [facility] nRBC % 0.0 0 - 0 /100 WBCs 04/17/2024 1:12 PM EST [facility] nRBC # <0.01 0.00 - 0.13 10*3/uL 04/17/2024 1:12 PM EST [facility] Blood Structure of peripheral vein / Unknown Venipuncture / Unknown 04/17/2024 12:44 PM EST 04/17/2024 12:44 PM EST us Mo NICOLAS LAB BLOOD ORDERABLES Final R esult [facility] [address] [place] [address] [address] [place] [address], * (ABNORMAL) Comprehensive Metabolic Panel (04/17/2024 12:44 PM EST) NA 136 136 - 145 mmol/L 04/17/2024 1:17 PM EST [facility] K 4.4 3.5 - 5.1 mmol/L 04/17/2024 1:17 PM EST [facility] Cl 99 98 - 109 mmol/L 04/17/2024 1:17 PM EST [facility] CO2 25 22 - 32 mmol/L 04/17/2024 1:17 PM EST [facility] Anion Gap 16 >=0 04/17/2024 1:[address] [facility] Glucose 95 60 - 99 mg/dL 04/17/2024 1:[address] [facility] Creatinine 0.57 0.50 - 1.12 mg/dL 04/17/2024 1:[address] [facility] Calcium 9.5 8.4 - 10.4 mg/dL 04/17/2024 1:[address] [facility] Total Protein 7.9 6.6 - 8.7 g/dL 04/17/2024 1:[address] [facility] Albumin 3.4(L) 3.5 - 5.0 g/dL 04/17/2024 1:[address] [facility] Bilirubin, Total 0.2 0.2 - 1.2 mg/dL 04/17/2024 1:[address] [facility] Alkaline Phosphatase 210(H) 40 - 129 U/L 04/17/2024 1:[address] [facility] AST 34(H) 0 - 33 U/L 04/17/2024 1:[address] [facility] ALT 41(H) <=33 U/L 04/17/2024 1:[address] [facility] BUN 23(H) 6 - 20 mg/dL 04/17/2024 1:[address] [facility] eGFR >90 >=60 mL/min/1. 73m2 04/17/2024 1:[address] [facility] Comment:The estimated glomer ular filtration rate (eGFR) is calculated using a new formula developed by the NKF-ASN task force to eliminate race-based correction factors. The new formula uses serum/plasma creatinine, age, and gender to determine eGFR. A value below 60mls/min might indicate kidney disease and will be flagged. For additional information, see Cristine tuttle al, Am J Kidney Dis. 2021;79(2):268- 288, A Unifying Approach for GFR estimation: Recommendations of the NKF-ASN Task Force on Reassessing the Inclusion of Race in Diagnosing Kidney Disease . Globulin, Total 4.5(H) 2.1 - 4.2 g/dL 04/17/2024 1:17 PM EST [facility] A/G Ratio 0.8(L) 1.5 - 3.0 04/17/2024 1:17 PM EST [facility] Blood Structure of peripheral vein / Unknown Venipuncture / Unknown 04/17/2024 12:44 PM EST 04/17/2024 12:44 PM EST us Mo NICOLAS LAB BLOOD ORDERABLES Final R esult [facility] [address] [place] [address], [place] [phone] documented in this encounter Visit Diagnoses Diagnosis Acute respiratory failure, unspecified whether with hypoxia or hypercapnia (HCC) No diagnosis documented in this encounter Care Teams Gas Tester Relationship Specialty Start Date End Date Jojo Seymour [address] [place] [phone] PCP - General Internal Medicine 03/03/23 documented as of this encounter
--- OUTSIDE RECORDS SUMMARY | 2024-06-26 16:51 | XMS_ITS | Encounter Summary ---
Author Organization [facility] Address [address] [place] [address] 7 [place] [address] Care Team Providers Care Hydrodynamicist Name Role Phone Jojo Seymour MD Primary Care Provider [phone] Encounter Details Date Type Department Care Team ([facility] Contact Info) Description 07/07/2022 Abstract [employer] [address] [place] [address] Jojo Seymour MD [address] [place], [place] [phone] Social History Tobacco Use Types Packs/Day Years Used Date Smoking Tobacco: Never Smokeless Tobacco: Never Alcohol Use Standard Drinks/Week Comments Not Currently 0 (1 standard drink = 0.6 oz pur e alcohol) Comments Unknown Sex and Gender Information Value Date Recorded Sex Assigned at Female 01/19/2022 10:18 AM EDT Legal Sex Female 10:18 AM EDT Gender Identity Female 01/19/2022 10:18 AM EDT Sexual Orientation Choose not to disclose 2021 10:18 AM EDT COVID-19 Exposure Response Date Recorded In the last 10 days, have yo u been in contact with someone who was confirmed or suspected to have Coronavirus/COVID-19? No / Unsure 07/07/2022 3:03 PM EDT documented as of this encounter Plan of Treatment Upcoming Encounters Date Type Department Care Team ([facility] Contact Info) Description 08/15/2024 1:45 PM EDT Office Visit [facility] [address] [place], [place] [phone] Jojo Seymour MD [address] [place] [address] documented as of this encounter Visit Diagnoses Not on filedocumented in this encounter Care Teams Hydrodynamicist Relationship Specialty Start Date End Date Jojo Seymour MD [address] [place] [address] PCP - General Internal Medicine 12/03/20 Julio NERI 04/25/24 documented as of this encounter
--- OUTSIDE RECORDS SUMMARY | 2024-06-26 16:51 | XMS_ITS | Encounter Summary ---
Author Organization [facility] Address [address] [place] [address] [address] [place] [address] Care Team Providers Care Manager Desktop Name Role Phone Jojo Seymour MD Primary Care Provider [phone] Encounter Details Date Type Department Care Team ([facility] Contact Info) Description 10/14/2022 Telephone [facility] [address] [place] [address] Jojo Seymour MD [address] [place] [address] Social History Tobacco Use Types Packs/Day Years [...] not to disclose 2021 10:18 AM EDT documented as of this encounter Plan of Treatment Upcoming Encounters Date Type Department Care Team ([facility] Contact Info) Description 08/15/2024 1:45 PM EDT Office Visit [facility] [address] [place] [address] Jojo Seymour MD [address] [place] [address] documented as of this encounter Visit Diagnoses Not on filedocumented in this encounter Care Teams Manager Desktop Relationship Specialty Start Date End Date Jojo Seymour MD [address] [place] [address] PCP - General Internal Medicine 12/03/20 Julio NERI 04/25/24 documented as of this encounter
--- OUTSIDE RECORDS SUMMARY | 2024-06-26 16:51 | XMS_ITS | Encounter Summary ---
Author Organization [facility] Address [address] [place] [address] Care Team Providers Care Fish Hatchery Specialist Name Role Phone Jojo Seymour Primary Care Provider [phone] Encounter Details Date Type Department Care Team (Late st Contact Info) Description 04/10/2024 Lab Requisition [facility] [address] [place] [address] Mo Starkey PA [address] [place] [phone] Acute and chronic respiratory failure with hypoxia; No diagnosis Social History Tobacco Use Types [...] Info) Description 07/06/2024 9:00 AM EDT Follow-Up [facility] 4th floor Cardiology Medicine [address] [place] [address] Slipper Maker: Elisha Montez PA [address] [place] [phone] documented as of this encounter Procedures * Due to [place] [employer] law, this organization might not be sharing negative HIV tests. Procedure Name Priority Date/Time Associated Diagnosis Comments CBC AUTO DIFFERENTIAL Routine 04/10/2024 10:25 AM EST Acute and chronic respiratory failure with hypoxia (HCC) No diagnosis COMPREHENSIVE METABOLIC PANEL Routine 04/10/2024 10:25 AM EST Acute and chronic respiratory failure with hypoxia (HCC) No diagnosis documented in this encounter Results * Due to [place] [employer] law, this organization might not be sharing negative HIV tests. * (ABNORMAL) Comprehensive Metabolic Panel (04/10/2024 10:25 AM EST) NA 134(L) 136 - 145 mmol/L 04/10/2024 11:15 AM EST [facility] K 4.1 3.5 - 5.1 mmol/L 04/10/2024 11:15 AM EST [facility] Cl 98 98 - 109 mmol/L 04/10/2024 11:15 AM EST [facility] CO2 27 22 - 32 mmol/L 04/10/2024 11:15 AM EST [facility] Anion Gap 13 >=0 04/10/2024 11:15 AM [facility] Glucose 92 60 - 99 mg/dL 04/10/2024 11:15 AM [facility] Creatinine 0.57 0.50 - 1.12 mg/dL 04/10/2024 11:15 AM EST [facility] Calcium 9.3 8.4 - 10.4 mg/dL 04/10/2024 11:15 AM [facility] Total Protein 7.9 6.6 - 8.7 g/dL 04/10/2024 11:15 AM EST [facility] Albumin 3.3(L) 3.5 - 5.0 g/dL 04/10/2024 11:15 AM EST [facility] Bilirubin, Total 0.2 0.2 - 1.2 mg/dL 04/10/2024 11:15 AM EST [facility] Alkaline Phosphatase 198(H) 40 - 129 U/L 04/10/2024 11:15 AM EST [facility] AST 20 0 - 33 U/L 04/10/2024 11:15 AM EST [facility] ALT 24 <=33 U/L 04/10/2024 11:15 AM EST [facility] BUN 20 6 - 20 mg/dL 04/10/2024 11:15 AM EST [facility] eGFR >90 >=60 mL/min/1. 73m2 04/10/2024 11:15 AM EST [facility] Comment:The estimated glomer ular filtration [...] in Diagnosing Kidney Disease . Globulin, Total 4.6(H) 2.1 - 4.2 g/dL 04/10/2024 11:15 AM EST [facility] A/G Ratio 0.7(L) 1.5 - 3.0 04/10/2024 11:15 AM EST [facility] Blood Structure of peripheral vein / Unknown Venipuncture / Unknown 04/10/2024 10:25 AM EST 04/10/2024 10:25 AM EST us Mo NICOLAS LAB BLOOD ORDERABLES Final R esult [facility] [address] [place] [address], * (ABNORMAL) CBC Auto Differential (04/10/2024 10:25 AM EST) WBC 12.7(H) 4.8 - 10.8 10*3/uL 04/10/2024 10:54 AM [facility] RBC 3.80(L) 4.20 - 5.40 10*6/uL 04/10/2024 10:54 AM [facility] Hemoglobin 9.5(L) 11.7 - 15.5 g/dL 04/10/2024 10:54 AM [facility] Hematocrit 29.6(L) 35.7 - 45.8 % 04/10/2024 10:54 AM [facility] MCV 77.9(L) 81.0 - 99.0 fL 04/10/2024 10:54 AM [facility] MCH 25.0(L) 26.0 - 34.0 pg 04/10/2024 10:54 AM [facility] MCHC 32.1 31.0 - 36.0 g/dL 04/10/2024 10:54 AM [facility] RDW 14.7 12.0 - 15.0 % 04/10/2024 10:54 AM [facility] RDW Standard Deviation 41.7 36.4 - 46.3 fL 04/10/2024 10:54 AM [facility] Platelets 299 140 - 440 10*3/uL 04/10/2024 10:54 AM [facility] MPV 9.3(L) 9.4 - 12.3 fL 04/10/2024 10:54 AM [facility] Neutrophil % 72.6 50.0 - 75.0 % 04/10/2024 10:54 AM [facility] Immature Grans % 0.5 0.0 - 0.9 % 04/10/2024 10:54 AM [facility] Lymphocyte % 22.1 20.0 - 44.0 % 04/10/2024 10:54 AM [facility] Monocyte % 3.7 0.0 - 14.0 % 04/10/2024 10:54 AM [facility] Eosinophil % 0.9 0.0 - 5.0 % 04/10/2024 10:54 AM EST [facility] Basophil % 0.2 0.0 - 2.0 % 04/10/2024 10:54 AM EST [facility] Neutrophil # 9.25(H) 1.80 - 7.70 10*3/uL 04/10/2024 10:54 AM EST [facility] Immature Grans # 0.06(H) 0.00 - 0.03 10*3/uL 04/10/2024 10:54 AM EST [facility] Lymphocyte # 2.80 1.00 - 4.75 10*3/uL 04/10/2024 10:54 AM EST [facility] Monocyte # 0.50 0.00 - 6.00 10*3/uL 04/10/2024 10:54 AM EST [facility] Eosinophil # 0.10 0.00 - 0.80 10*3/uL 04/10/2024 10:54 AM EST [facility] Basophil # <0.03 0.00 - 0.20 10*3/uL 04/10/2024 10:54 AM EST [facility] nRBC % 0.0 0 - 0 /100 WBCs 04/10/2024 10:54 AM EST [facility] nRBC # <0.01 0.00 - 0.13 10*3/uL 04/10/2024 10:54 AM EST [facility] Blood Structure of peripheral vein / Unknown Venipuncture / Unknown 04/10/2024 10:25 AM EST 04/10/2024 10:25 AM EST us Mo NICOL[facility] LAB BLOOD ORDERABLES Final R esult [facility] [address] [facility] [address] [place] [address], documented in this encounter Visit Diagnoses Diagnosis Acute and chronic respiratory failure with hypoxia (HCC) No diagnosis documented in this encounter Care Teams Fish Hatchery Specialist Relationship Specialty Start Date End Date Jojo Seymour [address] [place] [phone] PCP - General Internal Medicine 03/03/23 documented as of this encounter
--- OUTSIDE RECORDS SUMMARY | 2024-06-26 16:51 | XMS_ITS | Encounter Summary ---
Author Organization [facility] Address [address] [place] [address] Care Team Providers Care Top Lift Nailer Name Role Phone Jojo Seymour Primary Care Provider [phone] Encounter Details Date Type Department Care Team (Late st Contact Info) Description 03/21/2024 Lab Requisition [facility] [address] [place] [address] Mo Starkey PA [address] [place] [phone] Acute and chronic respiratory failure with hypoxia; [...] Info) Description 07/06/2024 9:00 AM EDT Follow-Up [facility] 4th floor Cardiology Medicine [address] [place] [address] [employer]: Elisha Montez PA [address] [place] [address] [phone] documented as of this encounter Procedures * Due to [place] [employer] law, this organization might not be sharing negative HIV tests. Procedure Name Priority Date/Time Associated Diagnosis Comments CBC AUTO DIFFERENTIAL Routine 03/21/2024 9:33 AM EST Acute and chronic respiratory failure with hypoxia (HCC) No diagnosis HEMOGLOBIN A1C Routine 03/21/2024 9:33 AM EST Acute and chronic respiratory failure with hypoxia (HCC) No diagnosis COMPREHENSIVE METABOLIC PANEL Routine 03/21/2024 9:33 AM EST Acute and chronic respiratory failure with hypoxia (HCC) No diagnosis documented in this encounter Results * Due to [place] [employer] law, this organization might not be sharing negative HIV tests. * (ABNORMAL) CBC Auto Differential (03/21/2024 9:33 AM EST) WBC 11.3(H) 4.8 - 10.8 10*3/uL 03/21/2024 9:42 AM EST [facility] RBC 3.63(L) 4.20 - 5.40 10*6/uL 03/21/2024 9:42 AM EST [facility] Hemoglobin 9.4(L) 11.7 - 15.5 g/dL 03/21/2024 9:42 AM EST [facility] Hematocrit 29.0(L) 35.7 - 45.8 % 03/21/2024 9:42 AM EST [facility] MCV 79.9(L) 81.0 - 99.0 fL 03/21/2024 9:42 AM EST [facility] MCH 25.9(L) 26.0 - 34.0 pg 03/21/2024 9:42 AM EST [facility] MCHC 32.4 31.0 - 36.0 g/dL 03/21/2024 9:42 AM EST [facility] RDW 14.7 12.0 - 15.0 % 03/21/2024 9:42 AM EST [facility] RDW Standard Deviation 43.5 36.4 - 46.3 fL 03/21/2024 9:42 AM EST [facility] Platelets 376 140 - 440 10*3/uL 03/21/2024 9:42 AM EST [facility] MPV 9.2(L) 9.4 - 12.3 fL 03/21/2024 9:42 AM EST [facility] Neutrophil % 65.8 50.0 - 75.0 % 03/21/2024 9:42 AM EST [facility] Immature Grans % 0.4 0.0 - 0.9 % 03/21/2024 9:42 AM [facility] Lymphocyte % 26.7 20.0 - 44.0 % 03/21/2024 9:42 AM [facility] Monocyte % 5.6 0.0 - 14.0 % 03/21/2024 9:42 AM [facility] Eosinophil % 1.2 0.0 - 5.0 % 03/21/2024 9:42 AM EST [facility] Basophil % 0.3 0.0 - 2.0 % 03/21/2024 9:42 AM [facility] Neutrophil # 7.41 1.80 - 7.70 10*3/uL 03/21/2024 9:42 AM [facility] Immature Grans # 0.04(H) 0.00 - 0.03 10*3/uL 03/21/2024 9:42 AM EST [facility] Lymphocyte # 3.00 1.00 - 4.75 10*3/uL 03/21/2024 9:42 AM EST [facility] Monocyte # 0.60 0.00 - 6.00 10*3/uL 03/21/2024 9:42 AM EST [facility] Eosinophil # 0.10 0.00 - 0.80 10*3/uL 03/21/2024 9:42 AM EST [facility] Basophil # <0.03 0.00 - 0.20 10*3/uL 03/21/2024 9:42 AM EST [facility] nRBC % 0.0 0 - 0 /100 WBCs 03/21/2024 9:42 AM EST [facility] nRBC # <0.01 0.00 - 0.13 10*3/uL 03/21/2024 9:42 AM EST [facility] Blood Structure of peripheral vein / Unknown Venipuncture / Unknown 03/21/2024 9:33 AM EST 03/21/2024 9:34 AM EST [facility] BLOOD ORDERABLES Final R esult Performing Organization Address [facility]/ZIP Co de Phone Number [facility] [address] [address], [place] [phone] * Hemoglobin A1c (03/21/2024 9:33 AM EST) Pathologist [facility] Hemoglobin A1c 4.7 4.0 - 5.7 % 03/21/2024 9:56 AM EST [facility] Estimated Average Glucose 88 mg/dL 03/21/2024 9:56 AM EST [facility] Blood Structure of peripheral vein / Unknown Venipuncture / Unknown 03/21/2024 9:33 AM EST 03/21/2024 9:34 AM EST [facility] BLOOD ORDERABLES [facility] Performing Organization Address [facility] Co de Phone Number [facility] [address] [address], [place] [phone] * (ABNORMAL) Comprehensive Metabolic Panel (03/21/2024 9:33 AM EST) NA 135(L) 136 - 145 mmol/L 03/21/2024 9:56 AM EST [facility] K 3.9 3.5 - 5.1 mmol/L 03/21/2024 9:56 AM EST [facility] Cl 95(L) 98 - 109 mmol/L 03/21/2024 9:56 AM EST [facility] CO2 27 22 - 32 mmol/L 03/21/2024 9:56 AM [facility] Anion Gap 17 >=0 03/21/2024 9:56 AM [facility] Glucose 103(H) 60 - 99 mg/dL 03/21/2024 9:56 AM [facility] Creatinine 0.58 0.50 - 1.12 mg/dL 03/21/2024 9:56 AM [facility] Calcium 9.7 8.4 - 10.4 mg/dL 03/21/2024 9:56 AM [facility] Total Protein 8.5 6.6 - 8.7 g/dL 03/21/2024 9:56 AM [facility] Albumin 3.3(L) 3.5 - 5.0 g/dL 03/21/2024 9:56 AM [facility] Bilirubin, Total 0.3 0.2 - 1.2 mg/dL 03/21/2024 9:56 AM [facility] Alkaline Phosphatase 306(H) 40 - 129 U/L 03/21/2024 9:56 AM [facility] AST 41(H) 0 - 33 U/L 03/21/2024 9:56 AM [facility] ALT 46(H) <=33 U/L 03/21/2024 9:56 AM [facility] BUN 31(H) 6 - 20 mg/dL 03/21/2024 9:56 AM [facility] eGFR >90 >=60 mL/min/1. 73m2 03/21/2024 9:56 AM [facility] Comment:The estimated glomer ular filtration [...] in Diagnosing Kidney Disease . Globulin, Total 5.2(H) 2.1 - 4.2 g/dL 03/21/2024 9:56 AM EST [facility] A/G Ratio 0.6(L) 1.5 - 3.0 03/21/2024 9:56 AM EST [facility] Blood Structure of peripheral vein / Unknown Venipuncture / Unknown 03/21/2024 9:33 AM EST 03/21/2024 9:34 AM EST us [facility] BLOOD ORDERABLES Final R esult Performing Organization Address City/State/[facility] Co de Phone Number [facility] [address] [place] [phone], documented in this encounter Visit Diagnoses Diagnosis Acute and chronic respiratory failure with hypoxia (HCC) No diagnosis documented in this encounter Care Teams Top Lift Nailer Relationship Specialty Start Date End Date Jojo Seymour [address] [place] [phone] PCP - General Internal Medicine 03/03/23 documented as of this encounter
--- OUTSIDE RECORDS SUMMARY | 2024-06-26 16:51 | XMS_ITS | Encounter Summary ---
Author Organization [employer] Address [address] [facility] 7 [place] [address] Care Team Providers Care Supervisor Screen Printing Name Role Phone Jojo Seymour MD Primary Care Provider [phone] Reason for Visit * Reason Onset Date Comments Med Refill 06/01/2024 Encounter Details Date Type Department Care Team ([facility] st Contact Info) Description 06/01/2024 Telephone [facility] MED & PEDS [address] [place] [address] Jojo Seymour MD [address] [place] [address] Med Refill Social History Tobacco Use Types Packs/Day Years [...] AM EDT documented as of this encounter Miscellaneous Notes * Telephone Encounter - Abbie Gamez RN - 06/01/2024 10:09 AM EDT Pt walked into [facility] with request to refill medications at recommendation of visiting home health nurse. Pt stated ran out of all medications except Creon. Pt brought medication list, author verified medications with medication list in chart which is same. Pt advised that author needs to have provider review before ordering. Pt advised to check with pharmacy due to medication being ordered yesterday. Pt verbalized understanding and agreement with plan. documented in this encounter Plan of Treatment Upcoming Encounters Date Type Department Care Team ([facility] st Contact Info) Description 08/15/2024 1:45 PM EDT Office Visit [facility] MED & PEDS [address] [place] [address] Jojo Seymour MD [address] [place] [address] documented as of this encounter Visit Diagnoses Not on filedocumented in this encounter Additional Health Concerns Assessment Noted Time PHQ-9 Depression Total Score: 4 05/02/19 25 1:23 PM EST documented as of this encounter Care Teams Supervisor Screen Printing Relationship Specialty Start Date End Date Jojo Seymour MD [address] [place] [phone] PCP - General Internal Medicine 12/03/20 Julio NERI 04/25/24 documented as of this encounter
--- OUTSIDE RECORDS SUMMARY | 2024-06-26 16:51 | XMS_ITS | Encounter Summary ---
Author Organization [facility] Address [address] [place] [address] Care Team Providers Care Phosphoric Acid Supervisor Name Role Phone Jojo Seymour Primary Care Provider [phone] Encounter Details Date Type Department Care Team (Late Contact Info) Description 03/27/2024 Lab Requisition [facility] [address] [place] [address] Mo Starkey PA [address] [place] [phone] Acute respiratory failure, unspecified whether with hypoxia [...] Info) Description 07/06/2024 9:00 AM EDT Follow-Up [facility] 4th floor Cardiology Medicine [address] [place] [address] Optometry Doctor: Elisha Montez PA [address] [place] [address] documented as of this encounter Procedures * Due to [place] [employer] law, this organization might not be sharing negative HIV tests. Procedure Name Priority Date/Time Associated Diagnosis Comments CBC AUTO DIFFERENTIAL Routine 03/27/2024 10:03 AM EST Acute respiratory failure, unspecified whether with hypoxia or hypercapnia (HCC) No diagnosis COMPREHENSIVE METABOLIC PANEL Routine 03/27/2024 10:03 AM EST Acute respiratory failure, unspecified whether with hypoxia or hypercapnia (HCC) No diagnosis documented in this encounter Results * Due to [place] [employer] law, this organization might not be sharing negative HIV tests. * (ABNORMAL) CBC Auto Differential (03/27/2024 10:03 AM EST) WBC 12.2(H) 4.8 - 10.8 10*3/uL 03/27/2024 10:21 AM EST [facility] RBC 3.60(L) 4.20 - 5.40 10*6/uL 03/27/2024 10:21 AM EST [facility] Hemoglobin 9.3(L) 11.7 - 15.5 g/dL 03/27/2024 10:21 AM EST [facility] Hematocrit 28.9(L) 35.7 - 45.8 % 03/27/2024 10:21 AM EST [facility] MCV 80.3(L) 81.0 - 99.0 fL 03/27/2024 10:21 AM EST [facility] MCH 25.8(L) 26.0 - 34.0 pg 03/27/2024 10:21 AM EST [facility] MCHC 32.2 31.0 - 36.0 g/dL 03/27/2024 10:21 AM EST [facility] RDW 14.7 12.0 - 15.0 % 03/27/2024 10:21 AM [facility] RDW Standard Deviation 43.6 36.4 - 46.3 fL 03/27/2024 10:21 AM EST [facility] Platelets 375 140 - 440 10*3/uL 03/27/2024 10:21 AM [facility] MPV 9.2(L) 9.4 - 12.3 fL 03/27/2024 10:21 AM [facility] Neutrophil % 67.4 50.0 - 75.0 % 03/27/2024 10:21 AM [facility] Immature Grans % 0.3 0.0 - 0.9 % 03/27/2024 10:21 AM [facility] Lymphocyte % 25.3 20.0 - 44.0 % 03/27/2024 10:21 AM [facility] Monocyte % 4.7 0.0 - 14.0 % 03/27/2024 10:21 AM [facility] Eosinophil % 2.0 0.0 - 5.0 % 03/27/2024 10:21 AM [facility] Basophil % 0.3 0.0 - 2.0 % 03/27/2024 10:21 AM [facility] Neutrophil # 8.22(H) 1.80 - 7.70 10*3/uL 03/27/2024 10:21 AM [facility] Immature Grans # 0.04(H) 0.00 - 0.03 10*3/uL 03/27/2024 10:21 AM [facility] Lymphocyte # 3.10 1.00 - 4.75 10*3/uL 03/27/2024 10:21 AM [facility] Monocyte # 0.60 0.00 - 6.00 10*3/uL 03/27/2024 10:21 AM [facility] Eosinophil # 0.20 0.00 - 0.80 10*3/uL 03/27/2024 10:21 AM [facility] Basophil # <0.03 0.00 - 0.20 10*3/uL 03/27/2024 10:21 AM [facility] nRBC % 0.0 0 - 0 /100 WBCs 03/27/2024 10:21 AM [facility] nRBC # <0.01 0.00 - 0.13 10*3/uL 03/27/2024 10:21 AM EST [facility] Blood Structure of peripheral vein / Unknown Venipuncture / Unknown 03/27/2024 10:03 AM EST 03/27/2024 10:03 AM EST us [facility] BLOOD ORDERABLES Final R esult [facility] [address] [place] [address] [address] [place] [address], [place] [phone] * (ABNORMAL) Comprehensive Metabolic Panel (03/27/2024 10:03 AM EST) NA 134(L) 136 - 145 mmol/L 03/27/2024 10:44 AM EST [facility] K 4.5 3.5 - 5.1 mmol/L 03/27/2024 10:44 AM EST [facility] Cl 97(L) 98 - 109 mmol/L 03/27/2024 10:44 AM EST [facility] CO2 27 22 - 32 mmol/L 03/27/2024 10:44 AM EST [facility] Anion Gap 15 >=0 03/27/2024 10:44 AM EST [facility] Glucose 123(H) 60 - 99 mg/dL 03/27/2024 10:44 AM EST [facility] Creatinine 0.50 0.50 - 1.12 mg/dL 03/27/2024 10:44 AM EST [facility] Calcium 9.6 8.4 - 10.4 mg/dL 03/27/2024 10:44 AM EST [facility] Total Protein 8.1 6.6 - 8.7 g/dL 03/27/2024 10:44 AM EST [facility] Albumin 3.3(L) 3.5 - 5.0 g/dL 03/27/2024 10:44 AM EST [facility] Bilirubin, Total 0.3 0.2 - 1.2 mg/dL 03/27/2024 10:44 AM EST [facility] Alkaline Phosphatase 246(H) 40 - 129 U/L 03/27/2024 10:44 AM EST [facility] AST 23 0 - 33 U/L 03/27/2024 10:44 AM EST [facility] ALT 25 <=33 U/L 03/27/2024 10:44 AM EST [facility] BUN 24(H) 6 - 20 mg/dL 03/27/2024 10:44 AM EST [facility] eGFR >90 >=60 mL/min/1. 73m2 03/27/2024 10:44 AM EST [facility] Comment:The estimated glomer ular [...] in Diagnosing Kidney Disease . Globulin, Total 4.8(H) 2.1 - 4.2 g/dL 03/27/2024 10:44 AM EST [facility] A/G Ratio 0.7(L) 1.5 - 3.0 03/27/2024 10:44 AM EST [facility] Blood Structure of peripheral vein / Unknown Venipuncture / Unknown 03/27/2024 10:03 AM EST 03/27/2024 10:03 AM EST us [facility] BLOOD ORDERABLES Final R esult [facility] [address] [facility] [address] [place] [address], [place] [phone] documented in this encounter Visit Diagnoses Diagnosis Acute respiratory failure, unspecified whether with hypoxia or hypercapnia (HCC) No diagnosis documented in this encounter Care Teams Phosphoric Acid Supervisor Relationship Specialty Start Date End Date Jojo Seymour [address] [place] [phone] PCP - General Internal Medicine 03/03/23 documented as of this encounter
--- OUTSIDE RECORDS SUMMARY | 2024-06-26 16:51 | XMS_ITS | Clinical Summary ---
Author Organization [facility] Address [address] [place] [address] Care Team Providers Care Russet Repairer Name Role Phone Jojo Seymour Primary Care Provider Allergies No known active allergies Medications atorvastatin [...] pain due to injury 12/18/2022 Hypertriglyceridemia 10/23/2021 Encounters Date Type Department Care Team Description 04/24/2024 Lab Requisition [facility] Draw Site [address] [place] [address] [phone] Mo Starkey PA Acute respiratory failure, unspecified whether with hypoxia or hypercapnia; No diagnosis 04/20/2024 Lab Requisition [facility] Lab [address] [place] [phone] Natalia Oropeza MD Acute respiratory failure, unspecified whether with hypoxia or hypercapnia; No diagnosis 04/17/2024 Lab Requisition [facility] [address] [place] [phone] Mo Starkey PA Acute respiratory failure, unspecified whether with hypoxia or hypercapnia; No diagnosis 04/11/2024 Lab Requisition [facility] [address] [place] [phone] Juan M Conroy MD Acute respiratory failure, unspecified whether with hypoxia or hypercapnia; No diagnosis 04/10/2024 Lab Requisition [facility] [address] [place] [address] [phone] Mo Starkey PA Acute and chronic respiratory failure with hypoxia; No diagnosis 04/07/2024 Lab Requisition [facility] [address] [place] [address] [phone] Natalia Oropeza MD Acute respiratory failure, unspecified whether with hypoxia or hypercapnia; No diagnosis 04/03/2024 Lab Requisition [facility] Lab [address] [place] [address] Aga Infante MD Acute respiratory failure, unspecified whether with hypoxia or hypercapnia; No diagnosis 04/01/2024 Lab Requisition [facility] Draw Site [address] [place] [address] [phone] Aga Infante MD Acute respiratory failure, unspecified whether with hypoxia or hypercapnia; No diagnosis from Last 3 Months Social History Tobacco Use Types Packs/Day Years [...] Info) Description 07/06/2024 9:00 AM EDT Follow-Up [facility] 4th floor Cardiology Medicine [address] [place] [address] [id number] Architect: Elisha Montez PA [address] [place] [address] Health Maintenance Due Date Last Done Comments Cologuard 1976 Colon Cancer Screening 1976 Colonoscopy 1976 FOBT / Fit Test 1976 HIV Screening 1976 HPV and Pap Smear 1976 Hepatitis C Screening 1976 Sigmoidoscopy 1976 Hepatitis B Vaccines (1 of 3 - 19+ 3-dose series) 1995 DTaP,Tdap,and Td Vaccines (1 - Tdap) 1998 Mammogram 2016 COVID-19 Vaccine ( season) 2023 04/18/2021, 08/21/2020, 07/24/2020 Alcohol/Substance Use Screening 03/22/2024 Depression Screening and Follow-Up 03/22/2024 Social Drivers of Health Annual Screening 03/22/2024 Influenza Vaccine (Season Ended) 2024 12/15/2019, 02/10/2019 Cervical Cancer Screening 02/05/2025 Pap Smear 02/05/2025 02/05/2022 Basic Metabolic Panel 04/24/2025 04/24/2024 , 04/17/2024, 04/11/2024, Additional history exists RSV Vaccine (60+ years old and patients) (1 - 1-dose 75+ series) 2051 Pneumococcal Vaccine: Pediatric (0-5 Years) and At-Risk Patients (6-50 Years) Aged Out No longer eligible based on patient's age to complete this topic Procedures * Due to [place] state law, this organization might not be [...] Last 3 Months Results * Due to [place] state law, this organization might not be sharing negative HIV tests. * (ABNORMAL) CBC Auto Differential (04/24/2024 9:56 AM EST) Only the most recent of7 resultswithin the time period is included. WBC 6.9 4.8 - 10.8 10*3/uL 04/24/2024 10:31 AM EST [facility] RBC 3.94(L) 4.20 - 5.40 10*6/uL 04/24/2024 10:31 AM EST [facility] Hemoglobin 9.8(L) 11.7 - 15.5 g/dL 04/24/2024 10:31 AM EST [facility] Hematocrit 30.5(L) 35.7 - 45.8 % 04/24/2024 10:31 AM EST [facility] MCV 77.4(L) 81.0 - 99.0 fL 04/24/2024 10:31 AM EST [facility] MCH 24.9(L) 26.0 - 34.0 pg 04/24/2024 10:31 AM EST [facility] MCHC 32.1 31.0 - 36.0 g/dL 04/24/2024 10:31 AM [facility] RDW 15.1(H) 12.0 - 15.0 % 04/24/2024 10:31 AM [facility] RDW Standard Deviation 42.6 36.4 - 46.3 fL 04/24/2024 10:31 AM [facility] Platelets 219 140 - 440 10*3/uL 04/24/2024 10:31 AM [facility] MPV 10.1 9.4 - 12.3 fL 04/24/2024 10:31 AM [facility] Neutrophil % 61.4 50.0 - 75.0 % 04/24/2024 10:31 AM [facility] Immature Grans % 0.3 0.0 - 0.9 % 04/24/2024 10:31 AM [facility] Lymphocyte % 29.7 20.0 - 44.0 % 04/24/2024 10:31 AM [facility] Monocyte % 6.6 0.0 - 14.0 % 04/24/2024 10:31 AM [facility] Eosinophil % 1.9 0.0 - 5.0 % 04/24/2024 10:31 AM [facility] Basophil % 0.1 0.0 - 2.0 % 04/24/2024 10:31 AM [facility] Neutrophil # 4.22 1.80 - 7.70 10*3/uL 04/24/2024 10:31 AM [facility] Immature Grans # <0.03 0.00 - 0.03 10*3/uL 04/24/2024 10:31 AM [facility] Lymphocyte # 2.00 1.00 - 4.75 10*3/uL 04/24/2024 10:31 AM [facility] Monocyte # 0.50 0.00 - 0.60 10*3/uL 04/24/2024 10:31 AM [facility] Eosinophil # 0.10 0.00 - 0.80 10*3/uL 04/24/2024 10:31 AM EST [facility] Basophil # <0.03 0.00 - 0.20 10*3/uL 04/24/2024 10:31 AM EST [facility] nRBC % 0.0 0 - 0 /100 WBCs 04/24/2024 10:31 AM EST [facility] nRBC # <0.01 0.00 - 0.13 10*3/uL 04/24/2024 10:31 AM EST [facility] Blood Structure of peripheral vein / Unknown Venipuncture / Unknown 04/24/2024 9:56 AM EST 04/24/2024 9:56 AM EST [facility] BLOOD ORDERABLES Final R esult Performing Organization Address City/[facility] Co de Phone Number [facility] [address] [address], [place] [phone] * (ABNORMAL) Lipase (04/24/2024 9:56 AM EST) Only the most recent of3 resultswithin the time period is included. Lipase 614(H) 13 - 60 U/L 04/24/2024 11:17 AM EST [facility] Comment:ALL DELTAS REVIEWED Blood Structure of peripheral vein / Unknown Venipuncture / Unknown 04/24/2024 9:56 AM EST 04/24/2024 9:56 AM EST [facility] BLOOD ORDERABLES Final R esult Performing Organization Address City/[facility]/ZIP Co de Phone Number [facility] [address] [address], [place] [phone] * (ABNORMAL) Amylase (04/24/2024 9:56 AM EST) Amylase 337(H) 28 - 127 U/L 04/24/2024 10:45 AM EST [facility] Blood Structure of peripheral vein / Unknown Venipuncture / Unknown 04/24/2024 9:56 AM EST 04/24/2024 9:56 AM EST us Mo NICOLAS LAB BLOOD ORDERABLES Final R esult [facility] [address] [facility] [address] [place] [address], [place] [phone] * (ABNORMAL) Comprehensive Metabolic Panel (04/24/2024 9:56 AM EST) Only the most recent of5 resultswithin the time period is included. NA 135(L) 136 - 145 mmol/L 04/24/2024 10:45 AM EST [facility] K 4.2 3.5 - 5.1 mmol/L 04/24/2024 10:45 AM EST [facility] Cl 99 98 - 109 mmol/L 04/24/2024 10:45 AM EST [facility] CO2 25 22 - 32 mmol/L 04/24/2024 10:45 AM EST [facility] Anion Gap 15 >=0 04/24/2024 10:45 AM EST [facility] Glucose 106(H) 60 - 99 mg/dL 04/24/2024 10:45 AM EST [facility] Creatinine 0.59 0.50 - 1.12 mg/dL 04/24/2024 10:45 AM EST [facility] Calcium 9.7 8.4 - 10.4 mg/dL 04/24/2024 10:45 AM EST [facility] Total Protein 7.8 6.6 - 8.7 g/dL 04/24/2024 10:45 AM EST [facility] Albumin 3.4(L) 3.5 - 5.0 g/dL 04/24/2024 10:45 AM EST [facility] Bilirubin, Total 0.3 0.2 - 1.2 mg/dL 04/24/2024 10:45 AM EST [facility] Alkaline Phosphatase 188(H) 40 - 129 U/L 04/24/2024 10:45 AM EST [facility] AST 25 0 - 33 U/L 04/24/2024 10:45 AM EST [facility] ALT 25 <=33 U/L 04/24/2024 10:45 AM EST [facility] BUN 28(H) 6 - 20 mg/dL 04/24/2024 10:45 AM EST [facility] eGFR >90 >=60 mL/min/1. 73m2 04/24/2024 10:45 AM EST [facility] Comment:The estimated glomer ular filtration rate [...] 2.1 - 4.2 g/dL 04/24/2024 10:45 AM EST [facility] A/G Ratio 0.8(L) 1.5 - 3.0 04/24/2024 10:45 AM EST [facility] Blood Structure of peripheral vein / Unknown Venipuncture / Unknown 04/24/2024 9:56 AM EST 04/24/2024 9:56 AM EST us Mo NICOLAS LAB BLOOD ORDERABLES Final R esult [facility] [address] [place] [address] [address] [place] [address], * Christian Top, Urine (04/11/2024 9:30 AM EST) Extra Tube Hold for add-ons. 04/11/2024 2:05 PM EST [facility] Comment:Auto resulted. Urine Urine specimen collection, clean catch / Unknown Non-Blood Collection / Unknown 04/11/2024 9:30 AM EST 04/11/2024 9:31 AM EST Juan M Conroy MD LAB URINE ORDERABLES Final Result Performing Organization Address [facility] de Phone Number [facility] [address] [address], [place] [phone] * (ABNORMAL) Microscopic Urinalysis Only (04/11/2024 9:30 AM EST) RBC, Urine None Seen None Seen, 0-2 /HPF 04/11/2024 11:08 AM EST [facility] WBC, Urine 0-2 None Seen, 0-2 /HPF 04/11/2024 11:08 AM EST [facility] Squamous Epithelial Cells, Urine 3-5 /HPF 04/11/2024 11:08 AM EST [facility] Calcium Oxalate Crystals, Urine Occasional /HPF 04/11/2024 11:08 AM EST [facility] Bacteria, Urine Occasional(A) None Seen /HPF 04/11/2024 11:08 AM EST [facility] Urine Urine specimen collection, clean catch / Unknown Non-Blood Collection / Unknown 04/11/2024 9:30 AM EST 04/11/2024 9:58 AM EST Juan M Conroy MD LAB URINE ORDERABLES Final Result Performing Organization Address [facility] de Phone Number [facility] [address] [address], [place] [phone] * (ABNORMAL) Urinalysis W/Reflex to Microscopic & Culture (04/11/2024 9:30 AM EST) Color, Urine Yellow Yellow 04/11/2024 9:58 AM EST [facility] Clarity, Urine Clear Clear 04/11/2024 9:58 AM EST [facility] Specific [place], Urine 1.020 1.005 - 1.030 04/11/2024 9:58 AM EST [facility] pH, Urine 7.5 5.0 - 8.0 04/11/2024 9:58 AM EST [facility] Protein, Urine 30(A) Negative mg/dL 04/11/2024 9:58 AM EST [facility] Glucose, Urine Negative Negative mg/dL 04/11/2024 9:58 AM EST [facility] Ketones, Urine Negative Negative mg/dL 04/11/2024 9:58 AM EST [facility] Bilirubin, Urine Negative Negative 04/11/2024 9:58 AM EST [facility] Blood, Urine Negative Negative 04/11/2024 9:58 AM EST [facility] Nitrite, Urine Negative Negative 04/11/2024 9:58 AM EST [facility] Urobilinogen, Urine 0.2 0.2 - 1.0 E.U./dL 04/11/2024 9:58 AM EST [facility] Leukocyte Esterase, Urine Trace(A) Negative 04/11/2024 9:58 AM EST [facility] Urine Urine specimen collection, clean catch / Unknown Non-Blood Collection / Unknown 04/11/2024 9:30 AM EST 04/11/2024 9:31 AM EST Narrative [facility] - 04/11/2024 9:58 AM EST Some urinalysis results will not meet the criteria for reflex urine culture although certain urine values may be abnormal. ??Additional testing can be ordered by the provider if clinically warranted. us Juan M Conroy MD LAB URINE ORDERABLES Final Result [facility] [address] [facility] [address] [place] [address], * N-terminal ProBrain Natriuretic Peptide - [facility]/Darrell Only (04/11/2024 9:30 AM EST) Pro-B-Type Natriuretic Peptide 102 <=450 pg/mL 04/11/2024 10:15 AM EST [facility] Comment: RULE IN CHF >/= 450 [...] BLOOD ORDERABLES Final Result Performing Organization Address [facility] de Phone Number [address] [address], [place] [phone] * TSH (04/11/2024 9:30 AM EST) [facility] TSH 3.590 0.270 - 4.200 uIU/mL 04/11/2024 10:21 AM EST [facility] Comment: Females: 1st trimester ? 0.150-4.000 ??IU/mL 2nd trimester ?? 0.310-4.170 ?IU/mL 3rd trimester ?0.380-4.150 ?IU/mL Blood Structure of peripheral vein / Unknown Venipuncture / Unknown 04/11/2024 9:30 AM EST 04/11/2024 9:31 AM EST Juan M Conroy MD LAB BLOOD ORDERABLES Final Result Performing Organization Address [facility] Co de Phone Number [facility] [address] [place] [address], [place] [phone] * T4, Free (04/11/2024 9:30 AM EST) [facility] Free T4 1.12 0.80 - 1.80 ng/dL 04/11/2024 10:21 AM EST [facility] Comment: Females: (ng/dL) First Trimester ? [...] BLOOD ORDERABLES Final Result Performing Organization Address [facility]/ZIP Co de Phone Number [facility] [address] [address], * (ABNORMAL) Phosphorus (04/11/2024 9:30 AM EST) Phosphorus 5.9(H) 2.5 - 4.5 mg/dL 04/11/2024 10:21 AM EST [facility] Blood Structure of peripheral vein / Unknown Venipuncture / Unknown 04/11/2024 9:30 AM EST 04/11/2024 9:31 AM EST Juan M Conroy MD LAB BLOOD ORDERABLES Final Result Performing Organization Address [facility] Co de Phone Number [facility] [address] [address], [place] [phone] * Magnesium (04/11/2024 9:30 AM EST) MG 2.0 1.5 - 2.5 mg/dL 04/11/2024 10:21 AM EST [facility] Blood Structure of peripheral vein / Unknown Venipuncture / Unknown 04/11/2024 9:30 AM EST 04/11/2024 9:31 AM EST us Juan M Conroy MD LAB BLOOD ORDERABLES Final Result Performing Organization Address [facility]/ZIP Co de Phone Number [facility] [address] [address], [place] [phone] * Hemoglobin A1c (04/11/2024 9:30 AM EST) Hemoglobin A1c 5.2 4.0 - 5.7 % 04/11/2024 10:30 AM EST [facility] Estimated Average Glucose 103 mg/dL 04/11/2024 10:30 AM EST [facility] Blood Structure of peripheral vein / Unknown Venipuncture / Unknown 04/11/2024 9:30 AM EST 04/11/2024 9:31 AM EST us Juan M Conroy MD LAB BLOOD ORDERABLES Final Result Performing Organization Address [facility]/ZIP Co de Phone Number [facility] [address] [address], [place] [phone] * Vitamin B12 (04/11/2024 9:30 AM EST) Pathologist [facility] Vitamin B12 713 232 - 1,245 pg/mL 04/11/2024 10:29 AM EST [facility] Blood Structure of peripheral vein / Unknown Venipuncture / Unknown 04/11/2024 9:30 AM EST 04/11/2024 9:31 AM EST us Juan M Conroy MD LAB BLOOD ORDERABLES Final Result Performing Organization Address City/[facility]/ZIP Co de Phone Number [facility] [address] [address], [place] [phone] * Ammonia (04/11/2024 9:30 AM EST) Ammonia 25 11 - 51 umol/L 04/11/2024 10:11 AM EST [facility] Blood Structure of peripheral vein / Unknown Venipuncture / Unknown 04/11/2024 9:30 AM EST 04/11/2024 9:31 AM EST Juan M Conroy MD LAB BLOOD ORDERABLES Final Result [facility] [address] [facility] [address] [place] [address], [place] [phone] * (ABNORMAL) Basic Metabolic Panel (04/11/2024 9:30 AM EST) Only the most recent of2 resultswithin the time period is included. NA 136 136 - 145 mmol/L 04/11/2024 10:21 AM EST [facility] K 4.6 3.5 - 5.1 mmol/L 04/11/2024 10:21 AM EST [facility] Cl 100 98 - 109 mmol/L 04/11/2024 10:21 AM EST [facility] CO2 25 22 - 32 mmol/L 04/11/2024 10:21 AM EST [facility] BUN 19 6 - 20 mg/dL 04/11/2024 10:21 AM EST [facility] Creatinine 0.61 0.50 - 1.12 mg/dL 04/11/2024 10:21 AM EST [facility] Glucose 101(H) 60 - 99 mg/dL 04/11/2024 10:21 AM EST [facility] Calcium 9.4 8.4 - 10.4 mg/dL 04/11/2024 10:21 AM EST [facility] Anion Gap 16 >=0 04/11/2024 10:21 AM EST [facility] eGFR >90 >=60 mL/min/1. 73m2 04/11/2024 10:21 AM EST [facility] Comment:The estimated glomer ular filtration rate [...] BLOOD ORDERABLES Final Result Performing Organization Address City/State/[facility] Co de Phone Number [facility] [address] [address], [place] [phone] from Last 3 Months Insurance [employer] Advance Directives * Presumed Full Code (Latest Code Status on File) Date Activated Date Inactivated Comments 12/19/2022 1:24 PM 12/20/2022 3:33 PM Care Teams Russet Repairer Relationship Specialty Start Date End Date Jojo Seymour [address] [place] [phone] PCP - General Internal Medicine 03/03/23
--- OUTSIDE RECORDS SUMMARY | 2024-06-26 16:51 | XMS_ITS | Encounter Summary ---
Author Organization [facility] Address [address] [place] [address] Care Team Providers Care Paraffiner Name Role Phone Jojo Seymour Primary Care Provider [phone] Encounter Details Date Type Department Care Team (Late Contact Info) Description 04/01/2024 Lab Requisition [facility] Site [address] [place] [address] [phone] Aga Infante MD [address] [place] [phone] Acute respiratory failure, unspecified whether with hypoxia [...] Info) Description 07/06/2024 9:00 AM EDT Follow-Up [facility] 4th floor Cardiology Medicine [address] [place] [address] Pitting Machine Operator: Elisha Montez PA [address] [place] [phone] documented as of this encounter Procedures * Due to [employer] law, this organization might not be sharing negative HIV tests. Procedure Name Priority Date/Time Associated Diagnosis Comments CBC AUTO DIFFERENTIAL Routine 04/01/2024 5:45 AM EST Acute respiratory failure, unspecified whether with hypoxia or hypercapnia (HCC) No diagnosis BASIC METABOLIC PANEL Routine 04/01/2024 5:45 AM EST Acute respiratory failure, unspecified whether with hypoxia or hypercapnia (HCC) No diagnosis documented in this encounter Results * Due to [employer] law, this organization might not be sharing negative HIV tests. * (ABNORMAL) CBC Auto Differential (04/01/2024 5:45 AM EST) WBC 8.9 4.8 - 10.8 10*3/uL 04/01/2024 10:44 AM EST [facility] RBC 3.85(L) 4.20 - 5.40 10*6/uL 04/01/2024 10:44 AM EST [facility] Hemoglobin 9.9(L) 11.7 - 15.5 g/dL 04/01/2024 10:44 AM EST [facility] Hematocrit 30.3(L) 35.7 - 45.8 % 04/01/2024 10:44 AM EST [facility] MCV 78.7(L) 81.0 - 99.0 fL 04/01/2024 10:44 AM EST [facility] MCH 25.7(L) 26.0 - 34.0 pg 04/01/2024 10:44 AM EST [facility] MCHC 32.7 31.0 - 36.0 g/dL 04/01/2024 10:44 AM EST [facility] RDW 14.8 12.0 - 15.0 % 04/01/2024 10:44 AM EST [facility] RDW Standard Deviation 42.4 36.4 - 46.3 fL 04/01/2024 10:44 AM EST [facility] Platelets 396 140 - 440 10*3/uL 04/01/2024 10:44 AM EST [facility] MPV 9.3(L) 9.4 - 12.3 fL 04/01/2024 10:44 AM [facility] Neutrophil % 57.6 50.0 - 75.0 % 04/01/2024 10:44 AM [facility] Immature Grans % 0.2 0.0 - 0.9 % 04/01/2024 10:44 AM [facility] Lymphocyte % 34.5 20.0 - 44.0 % 04/01/2024 10:44 AM [facility] Monocyte % 5.6 0.0 - 14.0 % 04/01/2024 10:44 AM [facility] Eosinophil % 1.7 0.0 - 5.0 % 04/01/2024 10:44 AM [facility] Basophil % 0.4 0.0 - 2.0 % 04/01/2024 10:44 AM [facility] Neutrophil # 5.12 1.80 - 7.70 10*3/uL 04/01/2024 10:44 AM [facility] Immature Grans # <0.03 0.00 - 0.03 10*3/uL 04/01/2024 10:44 AM [facility] Lymphocyte # 3.10 1.00 - 4.75 10*3/uL 04/01/2024 10:44 AM EST [facility] Monocyte # 0.50 0.00 - 6.00 10*3/uL 04/01/2024 10:44 AM [facility] Eosinophil # 0.20 0.00 - 0.80 10*3/uL 04/01/2024 10:44 AM EST [facility] Basophil # <0.03 0.00 - 0.20 10*3/uL 04/01/2024 10:44 AM [facility] nRBC % 0.0 0 - 0 /100 WBCs 04/01/2024 10:44 AM EST [facility] nRBC # <0.01 0.00 - 0.13 10*3/uL 04/01/2024 10:44 AM EST [facility] Blood Structure of peripheral vein / Unknown 04/01/2024 5:45 AM EST 04/01/2024 9:20 AM EST us Aga Infante MD LAB BLOOD ORDERABLES Final Res ult [facility] [address] [place] [address] [place] [address], * (ABNORMAL) Basic Metabolic Panel (04/01/2024 5:45 AM EST) NA 136 136 - 145 mmol/L 04/01/2024 10:56 AM EST [facility] K 4.3 3.5 - 5.1 mmol/L 04/01/2024 10:56 AM EST [facility] Cl 98 98 - 109 mmol/L 04/01/2024 10:56 AM EST [facility] CO2 27 22 - 32 mmol/L 04/01/2024 10:56 AM EST [facility] BUN 25(H) 6 - 20 mg/dL 04/01/2024 10:56 AM EST [facility] Creatinine 0.57 0.50 - 1.12 mg/dL 04/01/2024 10:56 AM EST [facility] Glucose 144(H) 60 - 99 mg/dL 04/01/2024 10:56 AM EST [facility] Calcium 9.3 8.4 - 10.4 mg/dL 04/01/2024 10:56 AM EST [facility] Anion Gap 15 >=0 04/01/2024 10:56 AM EST [facility] eGFR >90 >=60 mL/min/1. 73m2 04/01/2024 10:56 AM EST [facility] Comment:The estimated glomer ular [...] Blood Structure of peripheral vein / Unknown 04/01/2024 5:45 AM EST 04/01/2024 9:20 AM EST us Aga Infante MD LAB BLOOD ORDERABLES Final Res ult [facility] [address] [facility] [address] [place] [address], documented in this encounter Visit Diagnoses Diagnosis Acute respiratory failure, unspecified whether with hypoxia or hypercapnia (HCC) No diagnosis documented in this encounter Care Teams Paraffiner Relationship Specialty Start Date End Date Jojo Seymour [address] [place] [phone] PCP - General Internal Medicine 03/03/23 documented as of this encounter
--- OUTSIDE RECORDS SUMMARY | 2024-06-26 16:51 | XMS_ITS | Encounter Summary ---
Author Organization [facility] Address [address] [place] [address] Care Team Providers Care Technical Aide Name Role Phone Jojo Seymour Primary Care Provider [phone] Encounter Details Date Type Department Care Team (Late st Contact Info) Description 04/03/[address] [facility] [address] [place] [address] Aga Infante MD [address] [place] [id number] Acute respiratory failure, unspecified whether with hypoxia [facility] floor [facility] Medicine [address] [place] [address] Commutator Undercutter: Elisha Montez PA [address] [place] [address] documented as of this encounter Procedures * Due to [place] 3 day Blinds law, this organization might not be sharing negative HIV tests. Procedure Name Priority Date/Time Associated Diagnosis Comments CBC AUTO DIFFERENTIAL Routine 04/03/2024 10:00 AM EST Acute respiratory failure, unspecified whether with hypoxia or hypercapnia (HCC) No diagnosis COMPREHENSIVE METABOLIC PANEL Routine 04/03/2024 10:00 AM EST Acute respiratory failure, unspecified whether with hypoxia or hypercapnia (HCC) No diagnosis documented in this encounter Results * Due to [place] 3 day Blinds law, this organization might not be sharing negative HIV tests. * (ABNORMAL) CBC Auto Differential (04/03/2024 10:00 AM EST) WBC 11.1(H) 4.8 - 10.8 10*3/uL 04/03/2024 10:20 AM EST [facility] RBC 3.47(L) 4.20 - 5.40 10*6/uL 04/03/2024 10:20 AM EST [facility] Hemoglobin 8.7(L) 11.7 - 15.5 g/dL 04/03/2024 10:20 AM EST [facility] Hematocrit 27.1(L) 35.7 - 45.8 % 04/03/2024 10:20 AM EST [facility] MCV 78.1(L) 81.0 - 99.0 fL 04/03/2024 10:20 AM EST [facility] MCH 25.1(L) 26.0 - 34.0 pg 04/03/2024 10:20 AM EST [facility] MCHC 32.1 31.0 - 36.0 g/dL 04/03/2024 10:20 AM EST [facility] RDW 14.6 12.0 - 15.0 % 04/03/2024 10:20 AM EST [facility] RDW Standard Deviation 41.7 36.4 - 46.3 fL 04/03/2024 10:20 AM EST [facility] Platelets 306 140 - 440 10*3/uL 04/03/2024 10:20 AM [facility] MPV 9.2(L) 9.4 - 12.3 fL 04/03/2024 10:20 AM [facility] Neutrophil % 65.4 50.0 - 75.0 % 04/03/2024 10:20 AM [facility] Immature Grans % 0.5 0.0 - 0.9 % 04/03/2024 10:20 AM [facility] Lymphocyte % 27.1 20.0 - 44.0 % 04/03/2024 10:20 AM [facility] Monocyte % 5.2 0.0 - 14.0 % 04/03/2024 10:20 AM [facility] Eosinophil % 1.4 0.0 - 5.0 % 04/03/2024 10:20 AM [facility] Basophil % 0.4 0.0 - 2.0 % 04/03/2024 10:20 AM [facility] Neutrophil # 7.24 1.80 - 7.70 10*3/uL 04/03/2024 10:20 AM [facility] Immature Grans # 0.05(H) 0.00 - 0.03 10*3/uL 04/03/2024 10:20 AM [facility] Lymphocyte # 3.00 1.00 - 4.75 10*3/uL 04/03/2024 10:20 AM [facility] Monocyte # 0.60 0.00 - 6.00 10*3/uL 04/03/2024 10:20 AM [facility] Eosinophil # 0.20 0.00 - 0.80 10*3/uL 04/03/2024 10:20 AM [facility] Basophil # <0.03 0.00 - 0.20 10*3/uL 04/03/2024 10:20 AM [facility] nRBC % 0.0 0 - 0 /100 WBCs 04/03/2024 10:20 AM [facility] nRBC # <0.01 0.00 - 0.13 10*3/uL 04/03/2024 10:20 AM EST [facility] Blood Structure of peripheral vein / Unknown Venipuncture / Unknown 04/03/2024 10:00 AM EST 04/03/2024 10:01 AM EST us Aga Infante MD LAB BLOOD ORDERABLES Final Res ult [facility] [address] [place] [address] [address] [place] [address], [place] [phone] * (ABNORMAL) Comprehensive Metabolic Panel (04/03/2024 10:00 AM EST) NA 135(L) 136 - 145 mmol/L 04/03/2024 11:15 AM EST [facility] K 4.4 3.5 - 5.1 mmol/L 04/03/2024 11:15 AM EST [facility] Cl 102 98 - 109 mmol/L 04/03/2024 11:15 AM EST [facility] CO2 23 22 - 32 mmol/L 04/03/2024 11:15 AM EST [facility] Anion Gap 14 >=0 04/03/2024 11:15 AM EST [facility] Glucose 114(H) 60 - 99 mg/dL 04/03/2024 11:15 AM EST [facility] Creatinine 0.51 0.50 - 1.12 mg/dL 04/03/2024 11:15 AM EST [facility] Calcium 9.2 8.4 - 10.4 mg/dL 04/03/2024 11:15 AM EST [facility] Total Protein 7.6 6.6 - 8.7 g/dL 04/03/2024 11:15 AM EST [facility] Albumin 3.2(L) 3.5 - 5.0 g/dL 04/03/2024 11:15 AM EST [facility] Bilirubin, Total 0.3 0.2 - 1.2 mg/dL 04/03/2024 11:15 AM EST [facility] Alkaline Phosphatase 219(H) 40 - 129 U/L 04/03/2024 11:15 AM EST [facility] AST 24 0 - 33 U/L 04/03/2024 11:15 AM EST [facility] ALT 29 <=33 U/L 04/03/2024 11:15 AM EST [facility] BUN 20 6 - 20 mg/dL 04/03/2024 11:15 AM EST [facility] eGFR >90 >=60 mL/min/1. 73m2 04/03/2024 11:15 AM EST [facility] Comment:The estimated glomer ular filtration rate [...] Globulin, Total 4.4(H) 2.1 - 4.2 g/dL 04/03/2024 11:15 AM EST [facility] A/G Ratio 0.7(L) 1.5 - 3.0 04/03/2024 11:15 AM EST [facility] Blood Structure of peripheral vein / Unknown Venipuncture / Unknown 04/03/2024 10:00 AM EST 04/03/2024 10:01 AM EST us Aga Infante MD LAB BLOOD ORDERABLES Final Res ult [facility] [address] [facility] [address] [place] [address], [place] [phone] documented in this encounter Visit Diagnoses Diagnosis Acute respiratory failure, unspecified whether with hypoxia or hypercapnia (HCC) No diagnosis documented in this encounter Care Teams Technical Aide Relationship Specialty Start Date End Date Jojo Seymour [address] [place] [id number] PCP - General Internal Medicine 03/03/23 documented as of this encounter
--- OUTSIDE RECORDS SUMMARY | 2024-06-26 16:51 | XMS_ITS | Encounter Summary ---
Author Organization [employer] Address [address] [facility] 7t [place] [address] Care Team Providers Care Fisher Pot Name Role Phone Jojo Seymour MD Primary Care Provider [phone] Reason for Visit * Reason Onset Date Comments FYI 04/21/2024 Encounter Details Date Type Department Care Team (Late st Contact Info) Description 04/21/2024 Telephone [facility] MED[facility]INE [address] [place] [address] Jojo Seymour MD [address] [place] [address] FYI Social History Tobacco Use Types Packs/Day Years Used Date Smoking Tobacco: Never Smokeless Tobacco: Never Alcohol Use Standard Drinks/Week Comments Not Currently 0 (1 standard drink = 0.6 oz pur e alcohol) Housing Stability Answer Date Recorded What is your housing situation today? I have soumya esqueda 01/22/[address] you li ve. Do you have problems with any of the following? None of the above 01/22/2023 Food Insecurity Answer Date Recorded Within the past 12 months, y ou worried that your food would run out before you got money to buy more: Never True 01/22/2023 Within the past 12 months,th e food you bought just didn't last and you didn't have enough money to get more: Never True 05/2022 Transportation Answer Date Recorded In the past 12 months, has l ack of transportation kept you from medical appts, meetings, work or from getting things needed for daily living? No 01/22/2023 Utilities Answer Date Recorded In the past 12 months, has t he electric, gas, oil or water company threatened to shut off services in your home? No 01/22/2023 Comments Unknown Sex and Gender Information Value Date Recorded Sex Assigned at Female 01/19/2022 10:18 AM EDT Legal Sex Female 10:18 AM EDT Gender Identity Female 01/19/2022 10:18 AM EDT Sexual Orientation Choose not to disclose 2021 10:18 AM EDT documented as of this encounter Miscellaneous Notes * Telephone Encounter - Vaishnavi Erwin RN - 04/21/2024 10:31 AM EST Noted. * Telephone Encounter - Bulmaro Hunt - 04/21/2024 8:33 AM EST Tc from Chyna (pick and shovel worker) with [facility] informing pt was supposed to get discharge today 04/21/2024 , discharge date is now put on hold. If any questions please contact Chyna at [phone] documented in this encounter Plan of Treatment Upcoming Encounters Date Type Department Care Team (Late st Contact Info) Description 08/15/2024 1:45 PM EDT Office Visit [facility] [address] [place] [address] Jojo Seymour MD [address] [place] [address] documented as of this encounter Visit Diagnoses Not on filedocumented in this encounter Care Teams Fisher Pot Relationship Specialty Start Date End Date Jojo Seymour MD [address] [place] [address] PCP - General Internal Medicine 12/03/20 Julio NERI 04/25/24 documented as of this encounter
--- OUTSIDE RECORDS SUMMARY | 2024-06-26 16:51 | XMS_ITS | Encounter Summary ---
Author Organization [employer] Address [address] [facility] 7t [place] [address] Care Team Providers Care Draw Furnace Tender Name Role Phone Jojo Seymour MD Primary Care Provider [phone] Encounter Details Date Type Department Care Team (Late st Contact Info) Description 06/01/[address] [facility] MEDICINE [address] [place] [address] Jojo Seymour MD [address] [place] [address] Other chronic pancreatitis (CMS/HCC) (Primary Dx); Acute midline low back pain without sciatica; Primary hypertension; Nausea; Microcytic anemia Social History Tobacco Use Types Packs/Day Years [...] is your housing situation today? I have soumyaji esqueda 05/02/[address] you [...] Upcoming Encounters Date Type Department Care Team ([facility] st Contact Info) Description 08/15/2024 1:45 PM EDT Office [address] [facility] [address] [place] [address] Jojo Seymour MD [address] [place] [address] documented as of this encounter Visit Diagnoses Diagnosis Other chronic pancreatitis (CMS/HCC)- Primary Acute midline low back pain without sciatica Primary hypertension Unspecified essential hypertension Nausea Nausea alone Microcytic anemia Unspecified iron deficiency anemia documented in this encounter Additional Health Concerns Assessment Noted Time PHQ-9 Depression Total Score: 4 05/02/19 25 1:23 PM EST documented as of this encounter Care Teams Draw Furnace Tender Relationship Specialty Start Date End Date Jojo Seymour MD [address] [place] [address] PCP - General Internal Medicine 12/03/20 Julio NERI 04/25/24 documented as of this encounter
--- OUTSIDE RECORDS SUMMARY | 2024-06-26 16:51 | XMS_ITS | Encounter Summary ---
Author Organization [facility] Address [address] [place] [address] Phone Care Team Providers Care Home Hospice Aide Name Role Phone Jojo Seymour MD Primary Care Provider [phone] Encounter Details Date Type Department Care Team (Late st Contact Info) Description 05/21/2020 Orders Only [facility] [address] [place] [phone] ProviderRandal MD [address] [place] [address] Social History Tobacco Use Types Packs/Day Years Used Date Smoking Tobacco: Never Assessed Comments Unknown Sex and Gender Information Value Date Recorded Sex Assigned at Not on file Legal Sex Female 8:58 AM EST Gender Identity Not on file Sexual Orientation Not on file documented as of this encounter Plan of Treatment Not on file documented as of this encounter Procedures Procedure Name Priority Date/Time Associated Diagnosis Comments EXT RESULT ENTRY Routine 05/21/2020 EXT RESULT ENTRY Routine 05/21/2020 documented in this encounter Results * EXT RESULT ENTRY (05/21/2020) Historical Provider LAB BLOOD ORDERABLES Juhi l Result * EXT RESULT ENTRY (05/21/2020) Historical Provider LAB BLOOD ORDERABLES Juhi l Result documented in this encounter Visit Diagnoses Not on filedocumented in this encounter Care Teams Home Hospice Aide Relationship Specialty Start Date End Date Jojo Seymour MD [address] [place] [id number] PCP - General Internal Medicine 10/19/22 documented as of this encounter
--- OUTSIDE RECORDS SUMMARY | 2024-06-26 16:51 | XMS_ITS | Encounter Summary ---
Author Organization [facility] Address [address] [place] [address] Care Team Providers Care Engineer Rf Deployment Name Role Phone Jojo Seymour Primary Care Provider [phone] Encounter Details Date Type Department Care Team (Late Contact Info) Description 04/20/2024 Lab Requisition [facility] [address] [place] [address] Natalia Oropeza MD [address] [place] [address] Acute respiratory failure, unspecified whether with hypoxia [...] Info) Description 07/06/2024 9:00 AM EDT Follow-Up [facility] 4th floor Cardiology Medicine [address] [place] [address] Internal Grinder Tender: Elisha Montez PA [address] [place] [address] documented as of this encounter Procedures * Due to [place] [employer] law, this organization might not be sharing negative HIV tests. Procedure Name Priority Date/Time Associated Diagnosis Comments LIPASE Routine 04/20/2024 9:53 AM EST Acute respiratory failure, unspecified whether with hypoxia or hypercapnia (HCC) No diagnosis documented in this encounter Results * Due to [place] [employer] law, this organization might not be sharing negative HIV tests. * (ABNORMAL) Lipase (04/20/2024 9:53 AM EST) Lipase 108(H) 13 - 60 U/L 04/20/2024 11:07 AM EST [facility] Blood Structure of peripheral vein / Unknown Venipuncture / Unknown 04/20/2024 9:53 AM EST 04/20/2024 9:53 AM EST us Natalia Oropeza MD LAB BLOOD ORDERABLES Final Res ult Performing Organization Address City/State/[facility] Co de Phone Number [facility] [address] [place] [address], [place] [phone] documented in this encounter Visit Diagnoses Diagnosis Acute respiratory failure, unspecified whether with hypoxia or hypercapnia (HCC) No diagnosis documented in this encounter Care Teams Engineer Rf Deployment Relationship Specialty Start Date End Date Jojo Seymour [address] [place] [phone] PCP - General Internal Medicine 03/03/23 documented as of this encounter
--- OUTSIDE RECORDS SUMMARY | 2024-06-26 16:51 | XMS_ITS | Encounter Summary ---
Author Organization [facility] Address [address] [place] [address] Care Team Providers Care Housing Inspectors Name Role Phone Jojo Seymour Primary Care Provider [phone] Encounter Details Date Type Department Care Team (Late st Contact Info) Description 04/07/[address] [facility] [address] [place] [address] Natalia Oropeza MD [address] [place] [address] Acute respiratory failure, unspecified whether with hypoxia [...] Info) Description 07/06/2024 9:00 AM EDT Follow-Up [facility] 4th floor Cardiology Medicine [address] [place] [address] Sewer Repairer: Elisha Montez PA [address] [place] [address] documented as of this encounter Procedures * Due to [place] Answerology law, this organization might not be sharing negative HIV tests. Procedure Name Priority Date/Time Associated Diagnosis Comments CBC AUTO DIFFERENTIAL Routine 04/07/2024 10:04 AM EST Acute respiratory failure, unspecified whether with hypoxia or hypercapnia (HCC) No diagnosis COMPREHENSIVE METABOLIC PANEL Routine 04/07/2024 10:04 AM EST Acute respiratory failure, unspecified whether with hypoxia or hypercapnia (HCC) No diagnosis documented in this encounter Results * Due to [place] Answer[employer] law, this organization might not be sharing negative HIV tests. * (ABNORMAL) CBC Auto Differential (04/07/2024 10:04 AM EST) WBC 8.8 4.8 - 10.8 10*3/uL 04/07/2024 10:22 AM EST [facility] RBC 3.74(L) 4.20 - 5.40 10*6/uL 04/07/2024 10:22 AM EST [facility] Hemoglobin 9.4(L) 11.7 - 15.5 g/dL 04/07/2024 10:22 AM EST [facility] Hematocrit 29.1(L) 35.7 - 45.8 % 04/07/2024 10:22 AM EST [facility] MCV 77.8(L) 81.0 - 99.0 fL 04/07/2024 10:22 AM EST [facility] MCH 25.1(L) 26.0 - 34.0 pg 04/07/2024 10:22 AM EST [facility] MCHC 32.3 31.0 - 36.0 g/dL 04/07/2024 10:22 AM EST [facility] RDW 14.6 12.0 - 15.0 % 04/07/2024 10:22 AM EST [facility] RDW Standard Deviation 41.0 36.4 - 46.3 fL 04/07/2024 10:22 AM EST [facility] Platelets 310 140 - 440 10*3/uL 04/07/2024 10:22 AM EST [facility] MPV 9.4 9.4 - 12.3 fL 04/07/2024 10:22 AM EST [facility] Neutrophil % 58.6 50.0 - 75.0 % 04/07/2024 10:22 AM [facility] Immature Grans % 0.3 0.0 - 0.9 % 04/07/2024 10:22 AM EST [facility] Lymphocyte % 34.3 20.0 - 44.0 % 04/07/2024 10:22 AM [facility] Monocyte % 4.8 0.0 - 14.0 % 04/07/2024 10:22 AM EST [facility] Eosinophil % 1.7 0.0 - 5.0 % 04/07/2024 10:22 AM [facility] Basophil % 0.3 0.0 - 2.0 % 04/07/2024 10:22 AM [facility] Neutrophil # 5.14 1.80 - 7.70 10*3/uL 04/07/2024 10:22 AM [facility] Immature Grans # 0.03 0.00 - 0.03 10*3/uL 04/07/2024 10:22 AM [facility] Lymphocyte # 3.00 1.00 - 4.75 10*3/uL 04/07/2024 10:22 AM EST [facility] Monocyte # 0.40 0.00 - 6.00 10*3/uL 04/07/2024 10:22 AM [facility] Eosinophil # 0.20 0.00 - 0.80 10*3/uL 04/07/2024 10:22 AM EST [facility] Basophil # <0.03 0.00 - 0.20 10*3/uL 04/07/2024 10:22 AM [facility] nRBC % 0.0 0 - 0 /100 WBCs 04/07/2024 10:22 AM EST [facility] nRBC # <0.01 0.00 - 0.13 10*3/uL 04/07/2024 10:22 AM EST [facility] Blood Structure of peripheral vein / Unknown Venipuncture / Unknown 04/07/2024 10:04 AM EST 04/07/2024 10:04 AM EST Natalia Oropeza MD LAB BLOOD ORDERABLES Final Res ult [facility] [address] [facility] [address] [place] [address], * (ABNORMAL) Comprehensive Metabolic Panel (04/07/2024 10:04 AM EST) NA 134(L) 136 - 145 mmol/L 04/07/2024 11:00 AM EST [facility] K 4.1 3.5 - 5.1 mmol/L 04/07/2024 11:00 AM EST [facility] Cl 97(L) 98 - 109 mmol/L 04/07/2024 11:00 AM EST [facility] CO2 23 22 - 32 mmol/L 04/07/2024 11:00 AM EST [facility] Anion Gap 18 >=0 04/07/2024 11:00 AM EST [facility] Glucose 92 60 - 99 mg/dL 04/07/2024 11:00 AM EST [facility] Creatinine 0.60 0.50 - 1.12 mg/dL 04/07/2024 11:00 AM EST [facility] Calcium 9.7 8.4 - 10.4 mg/dL 04/07/2024 11:00 AM EST [facility] Total Protein 8.3 6.6 - 8.7 g/dL 04/07/2024 11:00 AM EST [facility] Albumin 3.4(L) 3.5 - 5.0 g/dL 04/07/2024 11:00 AM EST [facility] Bilirubin, Total 0.3 0.2 - 1.2 mg/dL 04/07/2024 11:00 AM EST [facility] Alkaline Phosphatase 204(H) 40 - 129 U/L 04/07/2024 11:00 AM EST [facility] AST 32 0 - 33 U/L 04/07/2024 11:00 AM EST [facility] ALT 36(H) <=33 U/L 04/07/2024 11:00 AM EST [facility] BUN 19 6 - 20 mg/dL 04/07/2024 11:00 AM EST [facility] eGFR >90 >=60 mL/min/1. 73m2 04/07/2024 11:00 AM EST [facility] Comment:The estimated glomer ular filtration [...] in Diagnosing Kidney Disease . Globulin, Total 4.9(H) 2.1 - 4.2 g/dL 04/07/2024 11:00 AM EST [facility] A/G Ratio 0.7(L) 1.5 - 3.0 04/07/2024 11:00 AM EST [facility] Blood Structure of peripheral vein / Unknown Venipuncture / Unknown 04/07/2024 10:04 AM EST 04/07/2024 10:04 AM EST us Natalia Oropeza MD LAB BLOOD ORDERABLES Final Res ult [facility] [address] [facility] [address] [place] [address], documented in this encounter Visit Diagnoses Diagnosis Acute respiratory failure, unspecified whether with hypoxia or hypercapnia (HCC) No diagnosis documented in this encounter Care Teams Housing Inspectors Relationship Specialty Start Date End Date Jojo Seymour [address] [place] [address] PCP - General Internal Medicine 03/03/23 documented as of this encounter
--- OUTSIDE RECORDS SUMMARY | 2024-06-26 16:51 | XMS_ITS | Encounter Summary ---
Author Organization [facility] Address [address] [place] [address] Care Team Providers Care Space Systems Operations Manager Name Role Phone Jojo Seymour Primary Care Provider [phone] Encounter Details Date Type Department Care Team (Late st Contact Info) Description 04/11/2024 Lab Requisition [facility] [address] [place] [address] Juan M Conroy MD [address] [place] [address] Acute respiratory failure, unspecified whether with hypoxia [...] Info) Description 07/06/2024 9:00 AM EDT Follow-Up [facility] 4th floor Cardiology Medicine [address] [place] [address] Network Architect: Elisha Montez PA [address] [place] [address] documented as of this encounter Procedures * Due to [place] state law, this organization might not be sharing negative HIV tests. Procedure Name Priority Date/Time Associated Diagnosis Comments URINALYSIS W/REFLEX TO MICROSCOPIC & CULTURE Routine [...] in this encounter Results * Due to [place] state law, this organization might not be sharing negative HIV tests. * (ABNORMAL) Microscopic Urinalysis Only (04/11/2024 9:30 AM EST) RBC, Urine None Seen None Seen, 0-2 /HPF 04/11/2024 11:08 AM EST [facility] WBC, Urine 0-2 None Seen, 0-2 /HPF 04/11/2024 11:08 AM EST [facility] Squamous Epithelial Cells, Urine 3-5 /HPF 04/11/2024 11:08 AM EST [facility] Calcium Oxalate Crystals, Urine Occasional /HPF 04/11/2024 11:08 AM EST [facility] Bacteria, Urine Occasional(A) None Seen /HPF 04/11/2024 11:08 AM EST [facility] Urine Urine specimen collection, clean catch / Unknown Non-Blood Collection / Unknown 04/11/2024 9:30 AM EST 04/11/2024 9:58 AM EST Juan M Conroy MD LAB URINE ORDERABLES Final Result [facility] [address] [place] [address] [address] [place] [address], * Hemoglobin A1c (04/11/2024 9:30 AM EST) Hemoglobin A1c 5.2 4.0 - 5.7 % 04/11/2024 10:30 AM EST [facility] Estimated Average Glucose 103 mg/dL 04/11/2024 10:30 AM EST [facility] Blood Structure of peripheral vein / Unknown Venipuncture / Unknown 04/11/2024 9:30 AM EST 04/11/2024 9:31 AM EST Juan M Conroy MD LAB BLOOD ORDERABLES Final Result Performing Organization Address City/[facility]/ZIP Co de Phone Number [facility] [address] [address], [place] [phone] * Christian Top, Urine (04/11/2024 9:30 AM EST) Pathologist [facility] Extra Tube Hold for add-ons. 04/11/2024 2:05 PM EST [facility] Comment:Auto resulted. Urine Urine specimen collection, clean catch / Unknown Non-Blood Collection / Unknown 04/11/2024 9:30 AM EST 04/11/2024 9:31 AM EST Juan M Conroy MD LAB URINE ORDERABLES Final Result Performing Organization Address [facility]/ZIP Co de Phone Number [facility] [address] [address], [place] [phone] * (ABNORMAL) Urinalysis W/Reflex to Microscopic & Culture (04/11/2024 9:30 AM EST) Color, Urine Yellow Yellow 04/11/2024 9:58 AM EST [facility] Clarity, Urine Clear Clear 04/11/2024 9:58 AM EST [facility] Specific [place], Urine 1.020 1.005 - 1.030 04/11/2024 9:58 AM EST [facility] pH, Urine 7.5 5.0 - 8.0 04/11/2024 9:58 AM EST [facility] Protein, Urine 30(A) Negative mg/dL 04/11/2024 9:58 AM EST [facility] Glucose, Urine Negative Negative mg/dL 04/11/2024 9:58 AM EST [facility] Ketones, Urine Negative Negative mg/dL 04/11/2024 9:58 AM EST [facility] Bilirubin, Urine Negative Negative 04/11/2024 9:58 AM EST [facility] Blood, Urine Negative Negative 04/11/2024 9:58 AM EST [facility] Nitrite, Urine Negative Negative 04/11/2024 9:58 AM EST [facility] Urobilinogen, Urine 0.2 0.2 - 1.0 E.U./dL 04/11/2024 9:58 AM EST [facility] Leukocyte Esterase, Urine Trace(A) Negative 04/11/2024 9:58 AM EST [facility] Urine Urine specimen collection, clean catch / Unknown Non-Blood Collection / Unknown 04/11/2024 9:30 AM EST 04/11/2024 9:31 AM EST [facility] - 04/11/2024 9:58 AM EST Some urinalysis results will not meet the criteria for reflex urine culture although certain urine values may be abnormal. ??Additional testing can be ordered by the provider if clinically warranted. Juan M Conroy MD LAB URINE ORDERABLES Final Result Performing Organization Address City/State/[facility] Co de Phone Number [facility] [address] [place] [address] [address] [place] [address], * (ABNORMAL) CBC Auto Differential (04/11/2024 9:30 AM EST) WBC 11.5(H) 4.8 - 10.8 10*3/uL 04/11/2024 9:50 AM EST [facility] RBC 3.76(L) 4.20 - 5.40 10*6/uL 04/11/2024 9:50 AM [facility] Hemoglobin 9.5(L) 11.7 - 15.5 g/dL 04/11/2024 9:50 AM [facility] Hematocrit 29.3(L) 35.7 - 45.8 % 04/11/2024 9:50 AM [facility] MCV 77.9(L) 81.0 - 99.0 fL 04/11/2024 9:50 AM EST [facility] MCH 25.3(L) 26.0 - 34.0 pg 04/11/2024 9:50 AM [facility] MCHC 32.4 31.0 - 36.0 g/dL 04/11/2024 9:50 AM [facility] RDW 14.7 12.0 - 15.0 % 04/11/2024 9:50 AM [facility] RDW Standard Deviation 41.8 36.4 - 46.3 fL 04/11/2024 9:50 AM [facility] Platelets 285 140 - 440 10*3/uL 04/11/2024 9:50 AM [facility] MPV 9.3(L) 9.4 - 12.3 fL 04/11/2024 9:50 AM [facility] Neutrophil % 68.0 50.0 - 75.0 % 04/11/2024 9:50 AM [facility] Immature Grans % 0.3 0.0 - 0.9 % 04/11/2024 9:50 AM [facility] Lymphocyte % 25.7 20.0 - 44.0 % 04/11/2024 9:50 AM [facility] Monocyte % 4.6 0.0 - 14.0 % 04/11/2024 9:50 AM [facility] Eosinophil % 1.1 0.0 - 5.0 % 04/11/2024 9:50 AM [facility] Basophil % 0.3 0.0 - 2.0 % 04/11/2024 9:50 AM [facility] Neutrophil # 7.84(H) 1.80 - 7.70 10*3/uL 04/11/2024 9:50 AM EST [facility] Immature Grans # 0.03 0.00 - 0.03 10*3/uL 04/11/2024 9:50 AM EST [facility] Lymphocyte # 3.00 1.00 - 4.75 10*3/uL 04/11/2024 9:50 AM EST [facility] Monocyte # 0.50 0.00 - 6.00 10*3/uL 04/11/2024 9:50 AM EST [facility] Eosinophil # 0.10 0.00 - 0.80 10*3/uL 04/11/2024 9:50 AM EST [facility] Basophil # <0.03 0.00 - 0.20 10*3/uL 04/11/2024 9:50 AM EST [facility] nRBC % 0.0 0 - 0 /100 WBCs 04/11/2024 9:50 AM EST [facility] nRBC # <0.01 0.00 - 0.13 10*3/uL 04/11/2024 9:50 AM EST [facility] Blood Structure of peripheral vein / Unknown Venipuncture / Unknown 04/11/2024 9:30 AM EST 04/11/2024 9:31 AM EST Juan M Conroy MD LAB BLOOD ORDERABLES Final Result Performing Organization Address City/State/[facility] Co de Phone Number [facility] [address] [place] [address], * Vitamin B12 (04/11/2024 9:30 AM EST) Vitamin B12 713 232 - 1,245 pg/mL 04/11/2024 10:29 AM EST [facility] Blood Structure of peripheral vein / Unknown Venipuncture / Unknown 04/11/2024 9:30 AM EST 04/11/2024 9:31 AM EST Juan M Conroy MD LAB BLOOD ORDERABLES Final Result Performing Organization Address [facility] de Phone Number [facility] [address] [address], * TSH (04/11/2024 9:30 AM EST) TSH 3.590 0.270 - 4.200 uIU/mL 04/11/2024 10:21 AM EST [facility] Comment: Females: 1st trimester ? 0.150-4.000 ??IU/mL 2nd trimester ?? 0.310-4.170 ?IU/mL 3rd trimester ?0.380-4.150 ?IU/mL Blood Structure of peripheral vein / Unknown Venipuncture / Unknown 04/11/2024 9:30 AM EST 04/11/2024 9:31 AM EST Juan M Conroy MD LAB BLOOD ORDERABLES Final Result Performing Organization Address [facility] de Phone Number [facility] [address] [address], * T4, Free (04/11/2024 9:30 AM EST) Free T4 1.12 0.80 - 1.80 ng/dL 04/11/2024 10:21 AM EST [facility] Comment: Females: (ng/dL) First Trimester ? [...] BLOOD ORDERABLES Final Result Performing Organization Address [facility]/ZIP Co de Phone Number [facility] [address] [address], [place] [phone] * (ABNORMAL) Phosphorus (04/11/2024 9:30 AM EST) Phosphorus 5.9(H) 2.5 - 4.5 mg/dL 04/11/2024 10:21 AM EST [facility] Blood Structure of peripheral vein / Unknown Venipuncture / Unknown 04/11/2024 9:30 AM EST 04/11/2024 9:31 AM EST us Juan M Conroy MD LAB BLOOD ORDERABLES Final Result Performing Organization Address City/[facility]/ZIP Co de Phone Number [facility] [address] [address], [place] [phone] * Magnesium (04/11/2024 9:30 AM EST) MG 2.0 1.5 - 2.5 mg/dL 04/11/2024 10:21 AM EST [facility] Blood Structure of peripheral vein / Unknown Venipuncture / Unknown 04/11/2024 9:30 AM EST 04/11/2024 9:31 AM EST us Juan M Conroy MD LAB BLOOD ORDERABLES Final Result Performing Organization Address City/[facility]/ZIP Co de Phone Number [facility] [address] [address], [place] [phone] * N-terminal ProBrain Natriuretic Peptide - [facility]/[place] Only (04/11/2024 9:30 AM EST) Pro-B-Type Natriuretic Peptide 102 <=450 pg/mL 04/11/2024 10:15 AM EST [facility] Comment: RULE IN CHF >/= 450 [...] BLOOD ORDERABLES Final Result Performing Organization Address [facility] Co de Phone Number [facility] [address] [address], [place] [phone] * Ammonia (04/11/2024 9:30 AM EST) Pathologist [facility] Ammonia 25 11 - 51 umol/L 04/11/2024 10:11 AM EST [facility] Blood Structure of peripheral vein / Unknown Venipuncture / Unknown 04/11/2024 9:30 AM EST 04/11/2024 9:31 AM EST Juan M Conroy MD LAB BLOOD ORDERABLES Final Result Performing Organization Address [facility] Co de Phone Number [facility] [address] [address], [place] [phone] * (ABNORMAL) Basic Metabolic Panel (04/11/2024 9:30 AM EST) Pathologist [facility] NA 136 136 - 145 mmol/L 04/11/2024 10:21 AM EST [facility] K 4.6 3.5 - 5.1 mmol/L 04/11/2024 10:21 AM EST [facility] Cl 100 98 - 109 mmol/L 04/11/2024 10:21 AM EST [facility] CO2 25 22 - 32 mmol/L 04/11/2024 10:21 AM EST [facility] BUN 19 6 - 20 mg/dL 04/11/2024 10:21 AM EST [facility] Creatinine 0.61 0.50 - 1.12 mg/dL 04/11/2024 10:21 AM EST [facility] Glucose 101(H) 60 - 99 mg/dL 04/11/2024 10:21 AM EST [facility] Calcium 9.4 8.4 - 10.4 mg/dL 04/11/2024 10:21 AM EST [facility] Anion Gap 16 >=0 04/11/2024 10:21 AM EST [facility] eGFR >90 >=60 mL/min/1. 73m2 04/11/2024 10:21 AM EST [facility] Comment:The estimated glomer ular filtration [...] Conroy MD LAB BLOOD ORDERABLES Final Result [facility] [address] [place] [address], [place] [phone] documented in this encounter Visit Diagnoses Diagnosis Acute respiratory failure, unspecified whether with hypoxia or hypercapnia (HCC) No diagnosis documented in this encounter Care Teams Space Systems Operations Manager Relationship Specialty Start Date End Date Jojo Seymour [address] [place] [phone] PCP - General Internal Medicine 03/03/23 documented as of this encounter
--- OUTSIDE RECORDS SUMMARY | 2024-06-26 16:51 | XMS_ITS | Encounter Summary ---
Author Organization [facility] Address [address] [place] [address] Care Team Providers Care Financial Assistant Name Role Phone Jojo Seymour Primary Care Provider [phone] Encounter Details Date Type Department Care Team (Late Contact Info) Description 04/24/2024 Lab Requisition [facility] Site [address] [place] [address] [phone] Mo Starkey PA [address] [place] [phone] Acute respiratory failure, unspecified whether with hypoxia [...] Info) Description 07/06/2024 9:00 AM EDT Follow-Up [facility] 4th floor Cardiology Medicine [address] [place] [address] Surface Logging Systems Logger: Elisha Montez PA [address] [place] [phone] documented as of this encounter Procedures * Due to [facility] law, this organization might not be sharing [...] in this encounter Results * Due to [facility] law, this organization might not be sharing negative HIV tests. * (ABNORMAL) CBC Auto Differential (04/24/2024 9:56 AM EST) WBC 6.9 4.8 - 10.8 10*3/uL 04/24/2024 10:31 AM EST [facility] RBC 3.94(L) 4.20 - 5.40 10*6/uL 04/24/2024 10:31 AM EST [facility] Hemoglobin 9.8(L) 11.7 - 15.5 g/dL 04/24/2024 10:31 AM EST [facility] Hematocrit 30.5(L) 35.7 - 45.8 % 04/24/2024 10:31 AM EST [facility] MCV 77.4(L) 81.0 - 99.0 fL 04/24/2024 10:31 AM EST [facility] MCH 24.9(L) 26.0 - 34.0 pg 04/24/2024 10:31 AM EST [facility] MCHC 32.1 31.0 - 36.0 g/dL 04/24/2024 10:31 AM [facility] RDW 15.1(H) 12.0 - 15.0 % 04/24/2024 10:31 AM [facility] RDW Standard Deviation 42.6 36.4 - 46.3 fL 04/24/2024 10:31 AM [facility] Platelets 219 140 - 440 10*3/uL 04/24/2024 10:31 AM [facility] MPV 10.1 9.4 - 12.3 fL 04/24/2024 10:31 AM [facility] Neutrophil % 61.4 50.0 - 75.0 % 04/24/2024 10:31 AM [facility] Immature Grans % 0.3 0.0 - 0.9 % 04/24/2024 10:31 AM [facility] Lymphocyte % 29.7 20.0 - 44.0 % 04/24/2024 10:31 AM [facility] Monocyte % 6.6 0.0 - 14.0 % 04/24/2024 10:31 AM [facility] Eosinophil % 1.9 0.0 - 5.0 % 04/24/2024 10:31 AM [facility] Basophil % 0.1 0.0 - 2.0 % 04/24/2024 10:31 AM [facility] Neutrophil # 4.22 1.80 - 7.70 10*3/uL 04/24/2024 10:31 AM [facility] Immature Grans # <0.03 0.00 - 0.03 10*3/uL 04/24/2024 10:31 AM [facility] Lymphocyte # 2.00 1.00 - 4.75 10*3/uL 04/24/2024 10:31 AM [facility] Monocyte # 0.50 0.00 - 0.60 10*3/uL 04/24/2024 10:31 AM [facility] Eosinophil # 0.10 0.00 - 0.80 10*3/uL 04/24/2024 10:31 AM EST [facility] Basophil # <0.03 0.00 - 0.20 10*3/uL 04/24/2024 10:31 AM EST [facility] nRBC % 0.0 0 - 0 /100 WBCs 04/24/2024 10:31 AM EST [facility] nRBC # <0.01 0.00 - 0.13 10*3/uL 04/24/2024 10:31 AM EST [facility] Blood Structure of peripheral vein / Unknown Venipuncture / Unknown 04/24/2024 9:56 AM EST 04/24/2024 9:56 AM EST Mo [facility]OL[facility] LAB BLOOD ORDERABLES Final R esult Performing Organization Address City/[facility]/ZIP Co de Phone Number [facility] [address] [address], [place] [phone] * (ABNORMAL) Lipase (04/24/2024 9:56 AM EST) Lipase 614(H) 13 - 60 U/L 04/24/2024 11:17 AM EST [facility] Comment:ALL DELTAS REVIEWED Blood Structure of peripheral vein / Unknown Venipuncture / Unknown 04/24/2024 9:56 AM EST 04/24/2024 9:56 AM EST Mo [facility] BLOOD ORDERABLES Final R esult Performing Organization Address City/[facility]/ZIP Co de Phone Number [facility] [address] [address], [place] [phone] * (ABNORMAL) Amylase (04/24/2024 9:56 AM EST) Amylase 337(H) 28 - 127 U/L 04/24/2024 10:45 AM EST [facility] Blood Structure of peripheral vein / Unknown Venipuncture / Unknown 04/24/2024 9:56 AM EST 04/24/2024 9:56 AM EST us Mo [facility] BLOOD ORDERABLES Final R esult [facility] [address] [facility] [address] [address], [place] [phone] * (ABNORMAL) Comprehensive Metabolic Panel (04/24/2024 9:56 AM EST) NA 135(L) 136 - 145 mmol/L 04/24/2024 10:45 AM EST [facility] K 4.2 3.5 - 5.1 mmol/L 04/24/2024 10:45 AM EST [facility] Cl 99 98 - 109 mmol/L 04/24/2024 10:45 AM EST [facility] CO2 25 22 - 32 mmol/L 04/24/2024 10:45 AM EST [facility] Anion Gap 15 >=0 04/24/2024 10:45 AM EST [facility] Glucose 106(H) 60 - 99 mg/dL 04/24/2024 10:45 AM EST [facility] Creatinine 0.59 0.50 - 1.12 mg/dL 04/24/2024 10:45 AM EST [facility] Calcium 9.7 8.4 - 10.4 mg/dL 04/24/2024 10:45 AM EST [facility] Total Protein 7.8 6.6 - 8.7 g/dL 04/24/2024 10:45 AM EST [facility] Albumin 3.4(L) 3.5 - 5.0 g/dL 04/24/2024 10:45 AM EST [facility] Bilirubin, Total 0.3 0.2 - 1.2 mg/dL 04/24/2024 10:45 AM EST [facility] Alkaline Phosphatase 188(H) 40 - 129 U/L 04/24/2024 10:45 AM EST [facility] AST 25 0 - 33 U/L 04/24/2024 10:45 AM EST [facility] ALT 25 <=33 U/L 04/24/2024 10:45 AM EST [facility] BUN 28(H) 6 - 20 mg/dL 04/24/2024 10:45 AM EST [facility] eGFR >90 >=60 mL/min/1. 73m2 04/24/2024 10:45 AM EST [facility] Comment:The estimated glomer ular filtration [...] - 4.2 g/dL 04/24/2024 10:45 AM EST [facility] A/G Ratio 0.8(L) 1.5 - 3.0 04/24/2024 10:45 AM EST [facility] Blood Structure of peripheral vein / Unknown Venipuncture / Unknown 04/24/2024 9:56 AM EST 04/24/2024 9:56 AM EST Mo [facility] BLOOD ORDERABLES Final R esult [facility] [address] [facility] [address] [place] [address], documented in this encounter Visit Diagnoses Diagnosis Acute respiratory failure, unspecified whether with hypoxia or hypercapnia (HCC) No diagnosis documented in this encounter Care Teams Financial Assistant Relationship Specialty Start Date End Date Jojo Seymour [address] [place] [address] PCP - General Internal Medicine 03/03/23 documented as of this encounter
--- OUTSIDE RECORDS SUMMARY | 2024-06-26 16:52 | XMS_ITS | Clinical Summary ---
Author Organization [facility] Address [address] [place] [address] Care Team Providers Care Vessel Builder Name Role Phone Jojo Seymour MD Primary Care Provider Allergies No known active allergies Medications Medication Sig Dispensed Refills Start Date End Date Status ondansetron (ZOFRAN) 4 MG/2ML injectionIndications :Other acute pancreatitis without infection or necrosis,Acute thrombosis of splenic vein,Portal vein thrombosis,Severe sepsis with acute organ dysfunction (HCC) Infuse 2 mL (4 mg total) into a venous catheter 4 times daily (every 6 hours) as needed for nausea or vomiting. 11/06/2023 Active insulin lispro (HumaLOG/ADMELOG) 100 units/mL injectionIndications :Necrotizing pancreatitis Inject 0.03-0.11 mL (3-11 Units total) under the skin every 4 (four) hours. 03/20/2024 Active naloxone (NARCAN) 0.4 mg/mL injectionIndications :Necrotizing pancreatitis Infuse 1 mL (0.4 mg total) into a venous catheter every 5 (five) minutes as needed for opioid reversal or respiratory depression. 03/20/2024 Active baclofen (LIORESAL) 10 MG tabletIndications:Ne crotizing pancreatitis 1 tablet (10 mg total) by G Tube route 3 (three) times a day. 03/20/2024 Active ferrous sulfate 300 mg/5 mL oral solutionIndications: Necrotizing pancreatitis 5 mL (300 mg total) by G Tube route daily. Take 2 hours before or 4 hours after acid reducers. 03/20/2024 Active ergocalciferol (VITAMIN D2,DRISDOL) dropsIndications:Nec rotizing pancreatitis 1 mL (8,000 Units total) by Feeding Tube route daily. 03/20/2024 Active hydrOXYzine HCl (ATARAX) 10 MG/5ML syrupIndications:Nec rotizing pancreatitis 12.5 mL (25 mg total) by Feeding Tube route 4 times daily (every 6 hours) as needed for anxiety. 03/20/2024 Active ipratropium (ATROVENT) 0.02 % nebulizer solutionIndications: Necrotizing pancreatitis Take 2.5 mL (0.5 mg total) by nebulization 4 times daily (every 6 hours) as needed for shortness of breath. 03/20/2024 Active lidocaine (LIDODERM) 5 % patchIndications:Nec rotizing pancreatitis Place 1 patch on the skin as needed for mild pain. Apply patch and leave on for 12 hours then remove. Patch may remain on skin for 12 hours per day. 03/20/2024 Active methadone (DOLOPHINE) 10 mg/5 mL oral solutionIndications: Necrotizing pancreatitis 2.5 mL (5 mg total) by J Tube route daily. Max Daily Amount: 5 mg 03/21/2024 Active acetaminophen (TYLENOL) 500 MG tabletIndications:Ne crotizing pancreatitis Take 2 tablets (1,000 mg total) by mouth 4 times daily (every 6 hours) as needed for mild pain. 03/20/2024 Active PANTOprazole (PROTONIX) 40 MG EC tabletIndications:Ne crotizing pancreatitis Take 1 tablet (40 mg total) by mouth every morning before breakfast. 03/20/2024 Active metoCLOPRAMIDE (REGLAN) 10 mg/10 mL Solution oral solutionIndications: Necrotizing pancreatitis Take 10 mL (10 mg total) by mouth nightly. Please give at 2200 03/20/2024 Active metoCLOPRAMIDE (REGLAN) 10 mg/10 mL Solution oral solutionIndications: Necrotizing pancreatitis 5 mL (5 mg total) by J Tube route 2 times a day. Please give at scheduled times: 0600 and 1400 03/21/2024 Active ondansetron (ZOFRAN-ODT) 4 MG disintegrating tablet Take 1 tablet (4 mg total) by mouth 3 times daily (every 8 hours) as needed for nausea or vomiting. Place tablet on tongue to dissolve. 10 tablet 04/07/2024 Active metoPROLOL TARTRATE (LOPRESSOR) 25 MG tablet Take 1 tablet (25 mg total) by mouth 2 (two) times a day. Active melatonin 3 MG Tab tablet Take 5 mg by mouth nightly. Active zinc sulfate (ZINCATE) 220 mg capsule Take 1 capsule (220 mg total) by mouth daily. Active Active Problems Problem Noted Date Diagnosed Date Pressure injury of coccygeal region, stage 2 Difficult airway for intubation 12/10/2023 Overview (12/10/2023): S/p trach 12/10/23 for resp failure, intubated with [place] [facility] with no apparent issues at [facility] in ICU setting Difficult airway 12/10/2023 Difficult airway for intubation 12/10/2023 Overview (03/07/2024): DART: Recannulate vs intubate from above- both acceptable Severe malnutrition (HCC) Ac barrow; wt loss >7.5% x 3month, severe muscle wasting (quadriceps, gastrocnemius), moderate fat loss (orbital, buccal, triceps), moderate muscle loss (pectoralis, temporalis) 11/10/2023 Necrotizing pancreatitis 11/06/2023 Abdominal fluid collection 11/06/2023 Acute blood loss anemia 11/06/2023 Melena 11/06/2023 GERD (gastroesophageal reflux disease) Severe sepsis with acute organ dysfunction 10/10 Acute kidney injury (nontraumatic) 10/11/2023 Hypernatremia 10/11/2023 Portal vein thrombosis 10/11/2023 Acute thrombosis of splenic vein 10/11/2023 Acute necrotizing pancreatitis 10/01/2023 Acute hypoxic respiratory failure 10/01/2023 Hypertriglyceridemia 10/01/2023 Hyponatremia 10/01/2023 Non-traumatic compartment syndrome of abdomen Encounters Date Type Department Care Team Description 06/13/2024 Telephone [facility] [address] [facility] [address] [place] [address] Sadia Adhikari MA 06/13/2024 Telephone [facility] [address] [facility] [address] [place] [address] Sadia Adhikari MA Bypass Screening 06/12/2024 Telephone [facility] [address] [place] [phone] Jahaira Syeks MA 05/29/2024 11:30 AM EDT Office Visit [facility] [address] [phone] Cassie Castillo MD Acute necrotizing pancreatitis (Primary Dx); Abdominal fluid collection; Gastrostomy tube present (HCC) 05/29/2024 Travel 05/23/2024 11:00 AM EST Telemedicine [facility] [address] [place] [address] [place] [phone] Leyla Lujan APRN On tube feeding diet (Primary Dx); Severe malnutrition (HCC) Acute; wt loss >7.5% x 3month, severe muscle wasting (quadriceps, gastrocnemius), moderate fat loss (orbital, buccal, triceps), moderate muscle loss (pectoralis, temporalis); Acute necrotizing pancreatitis 05/16/2024 11:00 AM EST Telemedicine [facility] [address] [place] [phone] Leyla Lujan APRN Acute necrotizing pancreatitis (Primary Dx); Severe malnutrition (HCC) Acute; wt loss >7.5% x 3month, severe muscle wasting (quadriceps, gastrocnemius), moderate fat loss (orbital, buccal, triceps), moderate muscle loss (pectoralis, temporalis); On tube feeding diet 05/16/2024 Travel 05/01/2024 11:00 AM EST Office Visit [facility] [address] [place] [address] [place] [address], [place] [address] Cassie Castillo MD Acute necrotizing pancreatitis (Primary Dx); On tube feeding diet; Severe malnutrition (HCC) Acute; wt loss >7.5% x 3month, severe muscle wasting (quadriceps, gastrocnemius), moderate fat loss (orbital, buccal, triceps), moderate muscle loss (pectoralis, temporalis); Abdominal fluid collection 05/01/2024 Travel 04/20/2024 Documentation [facility] [address] [phone] Leyla Lujan, STEM TEACHER 04/20/2024 Telephone [facility] [address] [phone] Leyla Lujan, STEM TEACHER 04/18/2024 1:00 PM EST Office Visit [facility] [address] [phone] Leyla Lujan, STEM TEACHER Acute necrotizing pancreatitis (Primary Dx); Severe malnutrition (HCC) Acute; wt loss >7.5% x 3month, severe muscle wasting (quadriceps, gastrocnemius), moderate fat loss (orbital, buccal, triceps), moderate muscle loss (pectoralis, temporalis); On tube feeding diet 04/18/2024 Travel 04/14/2024 Orders Only [facility] [address] [phone] Cuong Kumar MD 04/06/2024 2:40 PM EST - 04/07/2024 6:13 AM EST Emergency [facility] Emergency Department [address] [place] [address] Bang Roman MD STEVE drain, broken (Primary Dx) Discharge Disposition: [facility] 04/06/2024 Travel 04/06/2024 Telephone [facility] [address] [phone] Cassie Castillo MD Advice Only 03/29/2024 Telephone [facility] [place] [address] [place] [address] Leyla Lujan APRN from Last 3 Months Family History Medical History Relation Name Comments Diabetes Father Hyperlipidemia Father Hypertension Father Diabetes Mother Hyperlipidemia Mother Hypertension Mother Relation Name Status Comments Father Mother Social History Tobacco Use Types Packs/Day Years Used Date Smoking Tobacco: Former Cigarettes Smokeless Tobacco: Never Tobacco Cessation:Counseling Given: Not Answered Alcohol Use Standard Drinks/Week Comments Not Currently 0 (1 standard drink = 0.6 oz pur e alcohol) [facility] Utilities Answer Date Recorded In the past 12 months has th e electric, gas, oil, or water company threatened to shut off services in your home? No 11/08/2023 AUDIT-C Answer Date Recorded Q1: How often do you have a drink containing alcohol? Never 02/25/2024 Q2: How many drinks containi ng alcohol do you have on a typical day when you are drinking? Patient does not drink Q3: How often do you have si x or more drinks on one occasion? Never 02/25/2024 Hunger Vital Sign Answer Date Recorded Within the past 12 months, y ou worried that your food would run out before you got the money to buy more. Never true 11/08/19 24 Within the past 12 months, t he food you bought just didn't last and you didn't have money to get more. Never true 11/08/2023 PRAPARE - Transportation Answer Date Re corded In the past 12 months, has l ack of transportation kept you from medical appointments or from getting medications? No 10/20 In the past 12 months, has l ack of transportation kept you from meetings, work, or from getting things needed for daily living? No 11/08/2023 Housing Stability Vital Sign Answer Benjy e Recorded In the last 12 months, was t here a time when you were not able to pay the mortgage or rent on time? No 11/08/2023 In the last 12 months, how many places have you lived? 1 11/08/2023 In the last 12 months, was t here a time when you did not have a steady place to sleep or slept in a snf (including now)? No 11/08/2023 Sex and Gender Information Value Date Recorded Sex Assigned at Female 10/01/2023 1:30 AM EDT Gender Identity Female 10/01/2023 1:30 AM EDT Sexual Orientation Heterosexual (straight) 09/30 1:30 AM EDT Last Filed Vital Signs Vital Sign Reading Time Taken Comments Blood Pressure 116/83 05/29/2024 11:27 AM EDT Pulse 104 05/29/2024 11:27 AM EDT Temperature 36.1 ??C (97 ??F) 04/07/2024 2:16 AM EST Respiratory Rate 16 04/07/2024 2:16 AM EST Oxygen Saturation 99% 05/29/2024 11:27 AM EDT Inhaled Oxygen Concentration - - Weight 64 kg (141 lb) 06/13/2024 2:46 PM EDT Height 157.5 cm (5' 2 ) 06/13/2024 2:46 PM EDT Body Mass Index 25.79 06/13/2024 2:46 PM EDT Plan of Treatment Health Maintenance Due Date Last Done Comments Hepatitis C Virus Screening 1976 HIV Screening 1989 DTaP/Tdap/Td Vaccines (1 - Tdap) 1995 Hepatitis B Vaccines (1 of 3 - 19+ 3-dose series) 1995 Pap Smear (Ages 21-65) 1997 Mammogram 2016 Colonoscopy 2021 Influenza Vaccine 10/21/2023 12/15/2019, 02/10/2019 COVID-19 Vaccine (4 - 2023-2 5 season) 2023 04/18/2021, 08/21/2020, 07/24/2020 Pneumococcal Vaccine: Pediatric (0-5 Years) and At-Risk Patients (6 to 49 Years) Aged Out No longer eligible b ased on patient's age to complete this topic Medical Devices Implanted Type Area Balloon Pilot Device Identifier Shelf Expiration Date Model / Serial / Lot [id number] Kit Peg 20fr Push Evv Enfit - [id number] Implanted:Qty: 1 on 01/19/2024 by Iglesia Bhagat MD at [facility] Tube N/A: Stomach Neater [employer] JENN [id number] 11/19/2024 [id number] / / [id number] Kit Peg Corflo-Ultra Enfit Polyurethane Silicone Jordan L36 - [id number] Implanted:Qty: 1 on 01/26/2024 by Kaiser Petersen MD at [facility] Tube [id number] [id number] / / [id number] Kit Jejunostomy 45cm 16fr Daysi Alejandro Radopq Feed Tube Internal - [id number] Implanted:Qty: 1 on 02/16/2024 by Andre ProceduralistMD at [facility] Tube N/A: Abdomen [employer] [id number] 07/13/2025 [id number] / / [id number] Explanted Type Area Balloon Pilot Device Identifier Shelf Expiration Date Model / Serial / Lot [id number] Stent Pancreatic 20mm 10mm Axs Sterl Lf Disp Electrocautery - [id number] Implanted:Qty: 1 on 11/17/2023 by Gio Stewart MD at [facility] Explanted:Qty: 1 on 02/15/2024 by Robert Carrero MD at [facility] Stent N/A: Duodenum Flipter [employer] JENN [id number] 04/21/2024 [id number] / / [id number] Stent Biliary Zimmon 10fr 4cm Taper Tip Polyethe .035in 2 - [id number] Implanted:Qty: 1 on 02/15/2024 by Robert Carrero MD at [facility] Explanted:Qty: 1 on 02/29/2024 by Brad Beasley MD at [facility] Stent N/A: Bile Duct [employer] [id number] 11/01/2026 [id number] / / [id number] Procedures Procedure Name Priority Date/Time Associated Diagnosis Comments POCT GLUCOSE, FINGERSTICK (CHARGE) Routine 04/07/2024 6:[address] ABDOMEN+PELVIS W/CONTRAST STAT 04/06/2024 6:25 PM EST TRACHEOSTOMY CARE (RESPIRATORY) Routine 04/06/2024 2:56 PM EST TRACHEOSTOMY CARE (RESPIRATORY) Routine 04/06/2024 2:56 PM EST TRACHEOSTOMY CARE (RESPIRATORY) Routine 04/06/2024 2:56 PM EST COMPREHENSIVE METABOLIC PANEL STAT 04/06/2024 2:56 PM EST LIPASE STAT 04/06/2024 2:56 PM EST COMPLETE BLOOD COUNT, WITH DIFFERENTIAL STAT 04/06/2024 2:[address] SCAN EXTERNAL RESULT Routine 04/04/2024 9:21 AM EST from Last 3 Months Results * POCT Glucose, Fingerstick (04/07/2024 6:05 AM EST) POC Glucose 91 65 - 99 mg/dL 04/07/2024 6:08 AM EST Blood specimen / Unknown 04/07/2024 6:05 AM EST 04/07/2024 6:08 AM EST Bang Roman MD POINT OF CARE TEST ORDERABLES HOSPITAL LAB See Below * CT Abdomen+pelvis w/contrast (04/06/2024 6:25 PM EST) Anatomical Region Laterality Modality Abdomen, Pelvis Computed Tomogra phy 04/06/2024 6:09 PM EST Impressions 04/07/2024 1:07 AM EST 1. ??Pigtail drainage catheter with the tip projecting in the internal abdominal oblique muscle of the abdominal wall and segments immediately proximal to the tip of the catheter coursing in the expected location of the lateral aspect of the right anterior pararenal space. The catheter appears to have been slightly retracted when compared to prior. Near complete interval resolution of the previously noted right anterior pararenal space fluid collection compared with 02/28/2024. A trace adjacent right lateral gutter or free intraperitoneal fluid collection is present and is discontinuous from the STEVE drain. No discrete fluid collection in continuity with the STEVE drain. 2. ??Overall decreased size of previously described numerous intra-abdominal abscesses. Dominant collection in the right lower quadrant now measuring 2.4 cm in maximum dimension, previously 5.3 cm. 3. ??Similar inflammatory changes and not organized fluid collecting in the region of the pancreas consistent with known history of necrotizing pancreatitis. 4. ??Decreased volume of diffuse ascites throughout the abdomen and pelvis. 5. ??Unchanged positioning of percutaneous gastrojejunostomy tube. 6. ??Redemonstration of similar bibasilar consolidations. Decreased size of trace left pleural effusion. 7. ??Hepatosplenomegaly is similar to prior. Interpreted by: ??Moe Gil DO Tube Handler I personally reviewed the images and the resident's preliminary report and AGREE with the report as it is now presented ([id number]). Narrative 04/07/2024 1:07 AM EST EXAMINATION: CT ABDOMEN AND PELVIS WITH CONTRAST CLINICAL INFORMATION: Concern for displaced STEVE drain, hx necrotizing pancreatitis. COMPARISON: CT abdomen and pelvis from 02/28/2024. TECHNIQUE: Multidetector volumetric imaging was performed from the lung bases to the pubic symphysis following the administration of: Oral contrast: None Intravenous contrast: 80 mL Omnipaque 350 No contrast reaction reported. Sagittal and coronal reformatted images were obtained on the technologist's workstation. This CT examination was performed using dose optimization techniques as appropriate, variously including the following: *Automated exposure control *Adjustment of mA and/or kV according to patient size (this includes techniques or standardized protocols for targeted exams where dose is matched to indication/reason for exam; i.e. extremities or head) *Use of iterative reconstruction technique Total exam dose-length product 330 mGy-cm. FINDINGS: VISUALIZED CHEST: Redemonstration of bibasilar consolidations. Decreased size of now trace left pleural effusion. CVC tip terminating within the right atrium is again seen. The mediastinum is otherwise unremarkable. LIVER, GALLBLADDER, AND BILIARY TREE: Unchanged hepatomegaly. The liver is normal in shape and attenuation. Similar central intrahepatic biliary ductal dilation. No focal hepatic lesion. The gallbladder is surgically absent. The common bile duct again measures 0.8 cm, likely normal given postcholecystectomy status. PANCREAS: Interval removal of pancreatic duct stent. Diffuse inflammatory stranding in the region of the pancreas with poor delineation of the pancreatic parenchyma. This is likely consistent with patient's history of necrotizing pancreatitis with multiple necrosectomies. SPLEEN: Unchanged splenomegaly. No focal splenic lesion. ADRENAL GLANDS: Normal; no mass. KIDNEYS AND URETERS: The kidneys are normal in size, shape, and attenuation. No hydronephrosis, hydroureter, or calculi. ?? GASTROINTESTINAL TRACT: Percutaneous GJ tube balloon in the gastric lumen with tip terminating in the proximal jejunum similar to prior. Stomach is nondilated. Fluid-filled but not pathologically distended loops of jejunum and ileum. Scattered fecalization throughout the small bowel. No colonic wall thickening or pericolonic inflammatory changes. ?? Normal appendix. PERITONEUM: Interval retraction of percutaneous pigtail drainage catheter with the tip projecting in the oblique muscles of the abdominal wall. Decreased size of previously described rim-enhancing fluid collection the right lower quadrant now measuring approximately 2.4 x 1.6 cm, previously 5.3 x 3.2 cm. Previously described collection extending anteriorly is also decrease in size, now measuring 1.1 cm previously 2 cm. Small volume ascites within the abdomen and pelvis is decreased in volume from prior. Redemonstration of multifocal small peripheral rim-enhancing fluid collections along the left paracolic gutter, which all appear slightly decreased in size from prior. The dominant collection now measuring approximately 2.3 cm, previously 4.6 cm. Additional disorganized fluid collections along the left pelvic sidewall anterior to the iliac vasculature now measuring 1.1 cm, previously 3.9 cm. ABDOMINAL WALL: Similar stranding along the ventral abdominal wall. Unchanged anasarca over the bilateral flanks. LYMPHOVASCULAR STRUCTURES: No lymphadenopathy. The aorta is normal in caliber. ?? BLADDER: No focal mass or wall thickening seen. ??No bladder calculi. ?? PELVIC VISCERA: Unremarkable. The uterus is surgically absent. OSSEOUS STRUCTURES: No acute or suspicious osseous abnormality. ?? Procedure Note Mookie Dao MD - 04/07/2024 EXAMINATION: CT ABDOMEN AND PELVIS WITH CONTRAST CLINICAL INFORMATION: Concern for displaced STEVE drain, hx necrotizing pancreatitis. COMPARISON: CT abdomen and pelvis from 02/28/2024. TECHNIQUE: Multidetector volumetric imaging was performed from the lung bases to the pubic symphysis following the administration of: Oral contrast: None Intravenous contrast: 80 mL Omnipaque 350 No contrast reaction reported. Sagittal and coronal reformatted images were obtained on the technologist's workstation. This CT examination was performed using dose optimization techniques as appropriate, variously including the following: *Automated exposure control *Adjustment of mA and/or kV according to patient size (this includes techniques or standardized protocols for targeted exams where dose is matched to indication/reason for exam; i.e. extremities or head) *Use of iterative reconstruction technique Total exam dose-length product 330 mGy-cm. FINDINGS: VISUALIZED CHEST: Redemonstration of bibasilar consolidations. Decreased size of now trace left pleural effusion. CVC tip terminating within the right atrium is again seen. The mediastinum is otherwise unremarkable. LIVER, GALLBLADDER, AND BILIARY TREE: Unchanged hepatomegaly. The liver is normal in shape and attenuation. Similar central intrahepatic biliary ductal dilation. No focal hepatic lesion. The gallbladder is surgically absent. The common bile duct again measures 0.8 cm, likely normal given postcholecystectomy status. PANCREAS: Interval removal of pancreatic duct stent. Diffuse inflammatory stranding in the region of the pancreas with poor delineation of the pancreatic parenchyma. This is likely consistent with patient's history of necrotizing pancreatitis with multiple necrosectomies. SPLEEN: Unchanged splenomegaly. No focal splenic lesion. ADRENAL GLANDS: Normal; no mass. KIDNEYS AND URETERS: The kidneys are normal in size, shape, and attenuation. No hydronephrosis, hydroureter, or calculi. GASTROINTESTINAL TRACT: Percutaneous GJ tube balloon in the gastric lumen with tip terminating in the proximal jejunum similar to prior. Stomach is nondilated. Fluid-filled but not pathologically distended loops of jejunum and ileum. Scattered fecalization throughout the small bowel. No colonic wall thickening or pericolonic inflammatory changes. Normal appendix. PERITONEUM: Interval retraction of percutaneous pigtail drainage catheter with the tip projecting in the oblique muscles of the abdominal wall. Decreased size of previously described rim-enhancing fluid collection the right lower quadrant now measuring approximately 2.4 x 1.6 cm, previously 5.3 x 3.2 cm. Previously described collection extending anteriorly is also decrease in size, now measuring 1.1 cm previously 2 cm. Small volume ascites within the abdomen and pelvis is decreased in volume from prior. Redemonstration of multifocal small peripheral rim-enhancing fluid collections along the left paracolic gutter, which all appear slightly decreased in size from prior. The dominant collection now measuring approximately 2.3 cm, previously 4.6 cm. Additional disorganized fluid collections along the left pelvic sidewall anterior to the iliac vasculature now measuring 1.1 cm, previously 3.9 cm. ABDOMINAL WALL: Similar stranding along the ventral abdominal wall. Unchanged anasarca over the bilateral flanks. LYMPHOVASCULAR STRUCTURES: No lymphadenopathy. The aorta is normal in caliber. BLADDER: No focal mass or wall thickening seen. No bladder calculi. PELVIC VISCERA: Unremarkable. The uterus is surgically absent. OSSEOUS STRUCTURES: No acute or suspicious osseous abnormality. IMPRESSION: 1. Pigtail drainage catheter with the tip projecting in the internal abdominal oblique muscle of the abdominal wall and segments immediately proximal to the tip of the catheter coursing in the expected location of the lateral aspect of the right anterior pararenal space. The catheter appears to have been slightly retracted when compared to prior. Near complete interval resolution of the previously noted right anterior pararenal space fluid collection compared with 02/28/2024. A trace adjacent right lateral gutter or free intraperitoneal fluid collection is present and is discontinuous from the STEVE drain. No discrete fluid collection in continuity with the STEVE drain. 2. Overall decreased size of previously described numerous intra-abdominal abscesses. Dominant collection in the right lower quadrant now measuring 2.4 cm in maximum dimension, previously 5.3 cm. 3. Similar inflammatory changes and not organized fluid collecting in the region of the pancreas consistent with known history of necrotizing pancreatitis. 4. Decreased volume of diffuse ascites throughout the abdomen and pelvis. 5. Unchanged positioning of percutaneous gastrojejunostomy tube. 6. Redemonstration of similar bibasilar consolidations. Decreased size of trace left pleural effusion. 7. Hepatosplenomegaly is similar to prior. Interpreted by: Moe Gil DO Tube Handler I personally reviewed the images and the resident's preliminary report and AGREE with the report as it is now presented (RADPAL1). Bang Roman MD IMG CT ORDERA BLES * (ABNORMAL) Complete Blood Count, with Differential (04/06/2024 2:56 PM EST) White Blood Cell Count 10.6 4.0 - 11.0 Thou/uL 04/06/2024 3:32 PM [facility] Platelet Count 318 150 - 450 Thou/uL 04/06/2024 3:32 PM [facility] Hemoglobin 9.7(L) 11.7 - 15.7 g/dL 04/06/2024 3:32 PM [facility] Hematocrit 31.1(L) 35.0 - 47.0 % 04/06/2024 3:32 PM [facility] Red Blood Cell Count 3.94(L) 4.00 - 5.40 Mil/uL 04/06/2024 3:32 PM [facility] MCV 79(L) 80 - 100 fL 04/06/2024 3:32 PM [facility] MCH 24.6(L) 26.0 - 34.0 pg 04/06/2024 3:32 PM [facility] MCHC 31.2 30.0 - 36.0 g/dL 04/06/2024 3:32 PM [facility] RDW 14.4 11.5 - 14.5 % 04/06/2024 3:32 PM [facility] MPV 9.3 7.5 - 12.5 fL 04/06/2024 3:32 PM [facility] Neutrophils Auto 62.0 % 04/06/19 3:32 PM [facility] Immature Granulocytes 0.4 % 04/06/2024 3:32 PM [facility] Lymphocytes Auto 32.1 % 04/06/19 3:32 PM [facility] Monocytes Auto 4.0 % 04/06/2024 3:32 PM [facility] Eosinophils Auto 1.1 % 04/06/19 3:32 PM [facility] Basophils Auto 0.4 % 04/06/2024 3:32 PM [facility] Abs Neutrophils Auto 6.55 2.00 - 7.50 Thou/uL 04/06/2024 3:32 PM [facility] Abs Immature Granulocytes 0.04 0.00 - 0.10 Thou/uL 04/06/2024 3:32 PM [facility] Abs Lymphocytes Auto 3.39 1.50 - 4.50 Thou/uL 04/06/2024 3:32 PM [facility] Abs Monocytes Auto 0.42 0.20 - 1.50 Thou/uL 04/06/2024 3:32 PM [facility] Abs Eosinophils Auto 0.12 0.00 - 0.70 Thou/uL 04/06/2024 3:32 PM [facility] Abs Basophils Auto 0.04 0.00 - 0.20 Thou/uL 04/06/2024 3:32 PM [facility] Blood Blood specimen / Unknown 04/06/2024 2:56 PM EST 04/06/2024 3:22 PM EST Lynda NICOLAS-C LAB BLOOD ORDERABLES Performing Organization Address City/[facility]/ZIP [place] [address], [place] [address] * (ABNORMAL) Lipase (04/06/2024 2:56 PM EST) Lipase 66(H) 13 - 60 U/L 04/06/2024 3:50 PM [facility] Blood (Plasma/Serum) 04/06/2024 2:56 PM EST 04/06/2024 3:22 PM EST Lynda NICOLAS-C LAB BLOOD ORDERABLES Performing Organization Address [facility] [place] [address], [place] [address] * (ABNORMAL) Comprehensive Metabolic Panel (04/06/2024 2:56 PM EST) Glucose 94 65 - 99 mg/dL 04/06/2024 3:50 PM [facility] Comment:Fasting: <100 mg/dL, Non-Fasting: <200 mg/dL (ADA 2005) Blood Urea Nitrogen (BUN) 24(H) 8 - 21 mg/dL 04/06/2024 3:50 PM [facility] Creatinine 0.5 0.4 - 1.1 mg/dL 04/06/2024 3:50 PM [facility] eGFR >90 >59 04/06/2024 3:50 PM [facility] Comment:CKD-EPI (2020) in mL /min/1.73 sq meters. Sodium 135(L) 136 - 145 mmol/L 04/06/2024 3:50 PM [facility] Potassium 4.4 3.4 - 5.3 mmol/L 04/06/2024 3:50 PM [facility] Chloride 100 98 - 107 mmol/L 04/06/2024 3:50 PM [facility] CO2 26 22 - 33 mmol/L 04/06/2024 3:50 PM [facility] Calcium 9.9 8.7 - 10.5 mg/dL 04/06/2024 3:50 PM [facility] Alkaline Phosphatase 212(H) 32 - 122 U/L 04/06/2024 3:50 PM [facility] Aspartate Aminotrans (AST) 23 10 - 50 U/L 04/06/2024 3:50 PM [facility] Alanine Aminotrans (ALT) 29 10 - 50 U/L 04/06/2024 3:50 PM [facility] Bilirubin, Total 0.2 0.2 - 1.0 mg/dL 04/06/2024 3:50 PM [facility] Protein, Total 8.2 6.3 - 8.3 g/dL 04/06/2024 3:50 PM [facility] Albumin 3.3(L) 3.5 - 5.0 g/dL 04/06/2024 3:50 PM [facility] BUN/Creatinine Ratio 48(H) 10.0 - 25.0 Ratio 04/06/2024 3:50 PM [facility] Globulin 4.9(H) 1.5 - 3.9 g/dL 04/06/2024 3:50 PM [facility] Albumin/Globulin Ratio 0.7(L) 1.0 - 3.0 Ratio 04/06/2024 3:50 PM [facility] Anion Gap 9 7 - 17 04/06/2024 3:50 PM [facility] Blood (Plasma/Serum) 04/06/2024 2:56 PM EST 04/06/2024 3:22 PM EST Lynda Small PA-C LAB BLOOD ORDERABLES [address] [address], [address] [address] * CT Scan External Result (04/04/2024 9:21 AM EST) Anatomical Region Laterality Modality Computed Tomogra phy External Provider MD [facility] CT ORDERABLES from Last 3 Months Additional Health Concerns Infection Onset Date 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 Meropenem resistant Contact Precautions required with each encounter. Patients will remain on Contact isolation indefinitely with the exception of clinical review by Infection Prevention and Infectious Disease/Epidemiology. 11/29/2023 11/29/2023 Advance Directives Documents on File Type Date Recorded Patient Neurology Specialist Expl anation Advance Directive-Scan 01/05/2024 Sarah Morgan MA HEALTH CARE PROXY 01/05/24 * Full Code (Latest Code Status on File) Date Activated Date Inactivated Comments 11/06/2023 5:27 PM 04/06/2024 2:20 PM Question Answer Comments Decision Thoroughly Discussed with: Patient * Full Code Date Activated Date Inactivated Comments 10/01/2023 2:29 AM 11/06/2023 4:49 PM Healthcare Agents on File Name Relationship Healthcare Agent Relationship Communication Sarah Morgan Healthcare outside industrial sales representative 1. Health Care Neurology Specialist Care Teams Vessel Builder Relationship Specialty Start Date End Date Jojo Seymour MD [address] [place] [address] PCP - General General Medicine 10/01/23
--- OUTSIDE RECORDS SUMMARY | 2024-06-26 16:52 | XMS_ITS | Clinical Summary ---
Author Organization [facility] Facility Address [address] [address] Care Team Providers Care Social Work Administrator Name Role Phone Jojo Seymour MD Primary Care Provider [phone] Social History Tobacco Use Types Packs/Day Years Used Date Smoking Tobacco: Never Assessed Comments Unknown Sex and Gender Information Value Date Recorded Sex Assigned at Not on file Legal Sex Female 8:58 AM EST Gender Identity Not on file Sexual Orientation Not on file Plan of Treatment Health Maintenance Due Date Last Done Comments Hepatitis B Vaccine (1 of 3 - 19+ 3-dose series) 1995 Influenza Vaccine (Season Ended) 2024 Pneumococcal Vaccine: Pediat rics (0 to 5 Years) and At-Risk Patients (6 to 64 Years) Aged Out No longer eligi ble based on patient's age to complete this topic [place] Care Teams Social Work Administrator Relationship Specialty Start Date End Date Jojo Seymour MD [address] [place] [address] [phone] PCP - General Internal Medicine 10/19/22
== END 2024-06-26 14:43 | disposition home or self-care (01) ==
LOC: HO.HGI 14:05
PROVIDERS: PCP Internal Medicine; Visit Provider Internal Medicine Gastroenterology
DX: E78.1 Pure hyperglyceridemia (principal); Z87.19 Personal history of other diseases of the digestive system; E78.5 Hyperlipidemia, unspecified
CPT/HCPCS: 99213

== ENCOUNTER → 2024-06-26 14:05 | Outpatient (BNVA) | payer MEDICAID, SELFPAY | PROVIDERS: PCP Internal Medicine; Visit Provider Internal Medicine Gastroenterology | DX: E78.1 Pure hyperglyceridemia (principal); E78.5 Hyperlipidemia, unspecified; Z87.19 Personal history of other diseases of the digestive system | CPT/HCPCS: 99212 ==

== ENCOUNTER 2024-06-27 11:16 | Outpatient (REF) | payer MEDICAID, SELFPAY ==
[2024-06-27 11:42] LABS: MANUAL DIFF FLAG NO
[2024-06-27 11:49] LABS: Basophils Percent Auto 0.4 % (0-2); Eosinophils Absolute Auto 0.2 X10*3/uL (0.0-0.4); Eosinophils Percent Auto 1.8 % (0-4); Hematocrit 39.2 % (37.0-47.0); Hemoglobin 13.3 g/dl (12.0-16.0); Imm Gran Abs Auto 0.03 X10*3/uL (0.00-0.03); Imm Gran Pct Auto 0.4 % (0.0-0.4); Lymphocytes Absolute Auto 3.4 X10*3/uL (1.2-4.9); Lymphocytes Percent Auto 41.8 % (20-40); Mean Corpuscular HGB Conc 33.9 g/dl (31.0-35.0); Mean Corpuscular Hemoglobin 25.4 pg (27.0-33.0); Mean Platelet Volume 9.5 fL (9.4-12.3); Monocytes Absolute Auto 0.3 X10*3/uL (0.1-1.2); Monocytes Percent Auto 4.2 % (2-11); Neutrophils Absolute Auto 4.2 x10*3/uL (2.0-8.3); Neutrophils Percent Auto 51.4 % (45-73); Platelet Count 205 X10*3/uL (160-400); Red Blood Count 5.23 X10*6/uL (4.20-5.50); White Blood Count 8.2 X10*3/uL (4.8-10.8)
[2024-06-27 12:29] LABS: Alanine Aminotransferase 34 U/L (0-31); Albumin Level 4.3 g/dL (3.5-5.0); Alkaline Phosphatase 126 U/L (39-117); Anion Gap 12 (12-20); Aspartate Amino Transferase 29 U/L (5-31); Bilirubin Total 0.5 mg/dL (0.0-1.0); Blood Urea Nitrogen 20 mg/dL (9-16); Calcium 10.5 mg/dL (8.4-10.2); Carbon Dioxide 26 mmol/L (22-29); Chloride 105 mmol/L (96-108); Cholesterol 239 mg/dL (<200); Estimated Glomerular Filt Rate > 60; Glucose Random 90 mg/dL (60-115); HDL Cholesterol 30 mg/dL (>40); Magnesium 2.1 mg/dL (1.6-2.6); Phosphorus 4.3 mg/dL (2.7-4.5); Potassium 4.2 mmol/L (3.3-5.1); Sodium 139 mmol/L (135-145); Total Protein 8.8 g/dL (6.5-8.0); Triglycerides 690 mg/dL (<150)
[2024-06-27 12:58] LABS: Folate 9.5 ng/mL (> or = 4.0); Vitamin B12 527 pg/mL (200-900)
[2024-06-27 13:07] LABS: Vitamin D 25-OH Total 33.6 ng/mL (>30)
[2024-06-27 13:30] LABS: Ferritin 1509 ng/mL (10-250)
--- OUTSIDE RECORDS SUMMARY | 2024-06-27 13:49 | XMS_ITS | Clinical Summary ---
Author Organization [employer] Address [address] [place] [address] 7[address] [place] [address] Care Team Providers Care Burlap Worker Name Role Phone Jojo Seymour MD Primary Care Provider [phone] Allergies Active Allergy Reactions Criticality Noted Date Comments Pravastatin 10/15/2022 Other reaction(s): nausea, tired Medications Creon 87452-77498 units capsule TAKE 1 CAPSULE BY MOUTH FOUR TIMES DAILY WITH MEALS AND/OR SNACKS 05/01/19 23 Active melatonin 5 MG tabletIndication s:Primary insomnia 1 tab at bedtime 30 tablet 3 04/21/19 24 Active Blood Pressure kitIndications:P rimary hypertension To use daily 1 kit 05/02/19 25 Active pancrelipase, Lzs-Cior-Gtby, (Creon) 82287-82174 units capsuleIndicatio ns:Hypertriglyce ridemia,Other chronic pancreatitis (CMS/HCC) [...] 25 Active Blood Glucose Monitoring Suppl (FreeStyle [place] Lite) w/Device kitIndications:H yperglycemia Use to test [...] Encounters Date Type Department Care Team Description 06/27/2024 Orders Only GENERIC EXTERNAL DATA DEPARTMENT Provider, Generic External Data 06/02/2024 Population Health Risk Score [facility] (C3) Department [address] [place] [phone] Provider, Population Health Generic 06/01/2024 Orders Only [facility] MEDICINE [address] [place] [phone] Jojo Seymour MD Other chronic pancreatitis (CMS/HCC) (Primary Dx); Acute midline low back pain without sciatica; Primary hypertension; Nausea; Microcytic anemia 06/01/2024 Telephone [facility] [address] [place] [address] Jojo Seymour MD Med Refill 06/01/2024 Patient Outreach [facility] [address] [place] [address] Jojo Seymour MD Med Refill 05/30/2024 Refill [facility] [address] [place] [address] Jojo Seymour MD 05/02/2024 1:00 PM EST Office Visit [facility] [address] [place] [address] Jojo Seymour MD Hypertriglyceridemia (Primary Dx); Other chronic pancreatitis (CMS/HCC); Primary hypertension; Hyperglycemia 05/02/2024 Travel 04/21/[address] [address] Jojo Seymour MD Verbal Orders 04/21/[address] [address] Jojo Seymour MD FYI 04/19/2024 Patient Outreach [address] [address] Jojo Seymour MD Transition Of Care (Tcm) [...] Upcoming Encounters Date Type Department Care Team ([facility] st Contact Info) Description 08/15/2024 1:45 PM EDT Office Visit [facility] [address] [place], [place] [phone] Jojo Seymour MD [address] [place], [place] [phone] Health Maintenance Due Date Last Done Comments [...] 02/05/2027 02/05/2022, 01/20, 02/05/2022 Lipid Panel 06/05/2027 06/27/2024, 05/20, 06/04/2022, Additional history exists RSV Patients and Patients [...] Procedure Name Priority Date/Time Associated Diagnosis Comments FERRITIN Routine 06/27/2024 11:40 AM EDT VITAMIN D,25-OH,TOTAL,IA Routine 06/27/2024 11:40 AM EDT VITAMIN B12/FOLATE, SERUM PANEL Routine 06/27/2024 11:40 AM EDT LIPID PANEL WITH REFLEX TO DIRECT LDL Routine 06/27/2024 11:40 AM EDT MAGNESIUM Routine 06/27/2024 11:40 AM EDT PHOSPHATE ( PHOSPHORUS) Routine 06/27/2024 11:40 AM EDT COMPREHENSIVE METABOLIC PANEL Routine 06/27/2024 11:40 AM EDT CBC WITH AUTO DIFFERENTIAL Routine 06/27/2024 11:40 AM EDT ZZZ HISTORICAL HPV E6/E7 RFLX MEDINA 16 18/45 Routine 02/05/2022 2:44 PM EST PAP SMEAR Routine 02/05/2022 2:44 PM EST MAMMOGRAM GENERIC Routine 11/29/2020 10: 00 AM EDT from Last 3 Months or Most Recently Relevant to Health Maintenance Results * Vitamin B12 (Cobalamin) and Folate Panel, Serum (06/27/2024 11:40 AM EDT) Vitamin B12 527 200 - 900 pg/mL [facility] Comment:NORMAL 200-900 PG/ML INDETERMINATE 160-199 PG/ML DEFICIENT < 160 PG/ML Folate 9.5 > or = 4.0 ng/mL [facility] Comment:Reference Values:> o r = 4.0 ng/mL< 4.0 ng/mL suggests folate deficiency Methotrexate, aminopterin and folinic acid(leucovorin) are chemotherapeutic agents whose molecularstructures are similar to folate; therefore, the Architectfolate assay cannot be used for patients using these drugs. 06/27/2024 11:4 0 AM EDT 06/27/2024 11:40 AM EDT us Generic External Data Provider LAB BLOOD ORDERAB LES Final Result [facility] [address] [place] [phone] * (ABNORMAL) CBC auto differential (06/27/2024 11:40 AM EDT) White Blood Count 8.2 4.8 - 10.8 X10*3/uL [facility] Red Blood Count 5.23 4.20 - 5.50 X10*6/uL [facility] Hemoglobin 13.3 12.0 - 16.0 g/dl [facility] Hematocrit 39.2 37.0 - 47.0 % [facility] Mean Corpuscular Volume 75.0(L) 80.0 - 98.0 fL [facility] Mean Corpuscular Hemoglobin 25.4(L) 27.0 - 33.0 pg [facility] Mean Corpuscular HGB Conc 33.9 31.0 - 35.0 g/dl [facility] Red Cell Distribution Width 17.0(H) 11.0 - 16.0 % [facility] Platelet Count 205 160 - 400 X10*3/uL [facility] Mean Platelet Volume 9.5 9.4 - 12.3 fL [facility] Neutrophils Percent Auto 51.4 45 - 73 % [facility] Imm Gran Pct Auto 0.4 0.0 - 0.4 % [facility] Lymphocytes Percent Auto 41.8(H) 20 - 40 % [facility] Monocytes Percent Auto 4.2 2 - 11 % [facility] Eosinophils Percent Auto 1.8 0 - 4 % [facility] Basophils Percent Auto 0.4 0 - 2 % [facility] NRBC Pct Auto 0.0 0.0 - 0.2 /100WBC [facility] Neutrophils Absolute Auto 4.2 2.0 - 8.3 x10*3/uL [facility] Imm Gran Abs Auto 0.03 0.00 - 0.03 X10*3/uL [facility] Lymphocytes Absolute Auto 3.4 1.2 - 4.9 X10*3/uL [facility] Monocytes Absolute Auto 0.3 0.1 - 1.2 X10*3/uL [facility] Eosinophils Absolute Auto 0.2 0.0 - 0.4 X10*3/uL [facility] Basophils Absolute Auto 0.0 0.0 - 0.2 X10*3/uL [facility] NRBC Abs Auto 0.000 0.0 - 0.012 X10*3/uL [facility] 06/27/2024 11:4 0 AM EDT 06/27/2024 11:40 AM EDT us Generic External Data Provider LAB BLOOD ORDERAB LES Final Result [facility] [address] [place] [phone] [phone] * (ABNORMAL) HPV E6/E7 RFLX MEDINA 16 18/45 (02/05/2022 2:44 PM EST) HPV 16 RNA DETECTED(A) NOT DETECTED [facility] HPV 18/45 RNA NOT DETECTED NOT DETECTED [facility] Comment: Methodology: Bufferer Mediated Amplification Cervical sources are required for HPV testing. If a vaginal source from a patient who has had a total hysterectomy with removal of cervix was submitted, please contact the testing laboratory for alternative testing options. THIS TEST WAS PERFORMED AT: [email or web address] [address] [place] [address],[facility] [place], [place] ??[phone] GUERO NIELSEN MD HPV mRNA E6/E7 rflx Detected(A) Not Detected [facility] Comment: Methodology: Bufferer-Mediated Amplification This assay detects E6/E7 viral messenger RNA (mRNA) from 14 high-risk HPV types (16,18,31,33,35,39,45,51,52,56,58,59,66,68). Cervical sources are required for HPV testing. If a vaginal source from a patient who has had a total hysterectomy with removal of cervix was submitted, please contact the testing laboratory for alternative testing options. For additional information, please refer to http://education.[employer]/faq/QYQ513z3 (This link if provided for information/ educational purposes only.) THIS TEST WAS PERFORMED AT: [email or web address] [address] [place] [address],[facility] [place], [place] ??[phone] GUERO NIELSEN MD 02/05/2022 2:44 PM EST Rusty Rodriguez MD HISTORICAL/NON ORDERABLE LABS Fi nal Result [facility] * Pap Smear (02/05/2022 2:44 PM EST) 02/05/2022 2:44 PM EST 02/06/2022 9:50 AM EST Narrative [facility] - 03/03/2022 12:04 PM EST ----- ------- Name: Windy Tai I ? Age/Sex: 46/F ? : 1975 Unit#: [id number] ?? Attend Dr: Rusty Rodriguez MD ?Re02/05/22 ?Status: DEP REF ? Location: .LAB ?Disch: ? ----- ------- SPEC : [id number] ?RECD: 02/06/22 ? STATUS: ??SOUT ? REQ NUM: [id number] ? LOU: 02/05/22-0484 ? SUBM DR: Rusty Rodriguez MD ? ENTERED: ??02/06/229077 ?SP TYPE: Pap Smr ?OTHR DR: Jojo [...] Not Detected ? HPV testing performed by [facility], [place], [place]. ??See reference laboratory ?? portion of the EMR for entire report. ?Clinical Information LMP: 02/10 Previous PAP test: 2009, WNL ? Material Received ?? ThinPrep-Cervical Copies To: ?? Jojo Seymour MD ?? [address] ?? [place] [address] ? Rusty Rodriguez MD ?? [address] [place] [address] Dr. C[facility] ?? [place] [address] ?? [phone] ----- ------- Signed (signature on file) Aroldo Danielle MD 03/03/22 0477 ? ----- ------- ? END OF REPORT ? [facility] External Provider LAB CYT OLOGY ORDERABLES Final Result Performing Organization Address City/State/[facility] Co de Phone Number [facility] [address] [place] [phone] * Mammography Report 1 (11/29/2020 10:00 [...] Most Recently Relevant to Health Maintenance Insurance [employer] C3 [facility] C3 Care Teams Burlap Worker Relationship Specialty Start Date End Date Jojo Seymour MD [address] [place] [address] PCP - General Internal Medicine 12/03/20 Julio NERI 04/25/24
--- OUTSIDE RECORDS SUMMARY | 2024-06-27 13:49 | XMS_ITS | Encounter Summary ---
Author Organization [facility] Address [address] [place] [address] Care Team Providers Care Supervisor Hot Dip Plating Name Role Phone Jojo Seymour Primary Care Provider [phone] Encounter Details Date Type Department Care Team (Late st Contact Info) Description 04/03/2024 Lab Requisition [facility] [address] [place] [address] Aga Infante MD [address] [place] [phone] Acute respiratory failure, unspecified whether with hypoxia [...] [facility] 4th floor Cardiology Medicine [address] [place] [address] Cloth Measurer: Elisha Montez PA [address] [place] [address] documented as of this encounter Procedures * Due to [place] 250ok law, this organization might not be sharing [...] in this encounter Results * Due to [place] 250ok law, this organization might not be sharing negative HIV tests. * (ABNORMAL) CBC Auto Differential (04/03/2024 10:00 AM EST) WBC 11.1(H) 4.8 - 10.8 10*3/uL 04/03/2024 10:20 AM EST [facility] RBC 3.47(L) 4.20 - 5.40 10*6/uL 04/03/2024 10:20 AM EST [facility] Hemoglobin 8.7(L) 11.7 - 15.5 g/dL 04/03/2024 10:20 AM EST [facility] Hematocrit 27.1(L) 35.7 - 45.8 % 04/03/2024 10:20 AM EST [facility] MCV 78.1(L) 81.0 - 99.0 fL 04/03/2024 10:20 AM EST [facility] MCH 25.1(L) 26.0 - 34.0 pg 04/03/2024 10:20 AM EST [facility] MCHC 32.1 31.0 - 36.0 g/dL 04/03/2024 10:20 AM EST [facility] RDW 14.6 12.0 - 15.0 % 04/03/2024 10:20 AM EST [facility] RDW Standard Deviation 41.7 36.4 - 46.3 fL 04/03/2024 10:20 AM EST [facility] Platelets 306 140 - 440 10*3/uL 04/03/2024 10:20 AM [facility] MPV 9.2(L) 9.4 - 12.3 fL 04/03/2024 10:20 AM [facility] Neutrophil % 65.4 50.0 - 75.0 % 04/03/2024 10:20 AM [facility] Immature Grans % 0.5 0.0 - 0.9 % 04/03/2024 10:20 AM [facility] Lymphocyte % 27.1 20.0 - 44.0 % 04/03/2024 10:20 AM [facility] Monocyte % 5.2 0.0 - 14.0 % 04/03/2024 10:20 AM [facility] Eosinophil % 1.4 0.0 - 5.0 % 04/03/2024 10:20 AM [facility] Basophil % 0.4 0.0 - 2.0 % 04/03/2024 10:20 AM [facility] Neutrophil # 7.24 1.80 - 7.70 10*3/uL 04/03/2024 10:20 AM [facility] Immature Grans # 0.05(H) 0.00 - 0.03 10*3/uL 04/03/2024 10:20 AM [facility] Lymphocyte # 3.00 1.00 - 4.75 10*3/uL 04/03/2024 10:20 AM [facility] Monocyte # 0.60 0.00 - 6.00 10*3/uL 04/03/2024 10:20 AM [facility] Eosinophil # 0.20 0.00 - 0.80 10*3/uL 04/03/2024 10:20 AM [facility] Basophil # <0.03 0.00 - 0.20 10*3/uL 04/03/2024 10:20 AM [facility] nRBC % 0.0 0 - 0 /100 WBCs 04/03/2024 10:20 AM [facility] nRBC # <0.01 0.00 - 0.13 10*3/uL 04/03/2024 10:20 AM EST [facility] Blood Structure of peripheral vein / Unknown Venipuncture / Unknown 04/03/2024 10:00 AM EST 04/03/2024 10:01 AM EST us Aga Infante MD LAB BLOOD ORDERABLES Final Res ult [facility] [address] [place] [address] [address] [place] [address], [place] [phone] * (ABNORMAL) Comprehensive Metabolic Panel (04/03/2024 10:00 AM EST) NA 135(L) 136 - 145 mmol/L 04/03/2024 11:15 AM EST [facility] K 4.4 3.5 - 5.1 mmol/L 04/03/2024 11:15 AM EST [facility] Cl 102 98 - 109 mmol/L 04/03/2024 11:15 AM EST [facility] CO2 23 22 - 32 mmol/L 04/03/2024 11:15 AM EST [facility] Anion Gap 14 >=0 04/03/2024 11:15 AM EST [facility] Glucose 114(H) 60 - 99 mg/dL 04/03/2024 11:15 AM EST [facility] Creatinine 0.51 0.50 - 1.12 mg/dL 04/03/2024 11:15 AM EST [facility] Calcium 9.2 8.4 - 10.4 mg/dL 04/03/2024 11:15 AM EST [facility] Total Protein 7.6 6.6 - 8.7 g/dL 04/03/2024 11:15 AM EST [facility] Albumin 3.2(L) 3.5 - 5.0 g/dL 04/03/2024 11:15 AM EST [facility] Bilirubin, Total 0.3 0.2 - 1.2 mg/dL 04/03/2024 11:15 AM EST [facility] Alkaline Phosphatase 219(H) 40 - 129 U/L 04/03/2024 11:15 AM EST [facility] AST 24 0 - 33 U/L 04/03/2024 11:15 AM EST [facility] ALT 29 <=33 U/L 04/03/2024 11:15 AM EST [facility] BUN 20 6 - 20 mg/dL 04/03/2024 11:15 AM EST [facility] eGFR >90 >=60 mL/min/1. 73m2 04/03/2024 11:15 AM EST [facility] Comment:The estimated glomer ular [...] - 4.2 g/dL 04/03/2024 11:15 AM EST [facility] A/G Ratio 0.7(L) 1.5 - 3.0 04/03/2024 11:15 AM EST [facility] Blood Structure of peripheral vein / Unknown Venipuncture / Unknown 04/03/2024 10:00 AM EST 04/03/2024 10:01 AM EST us Aga Infante MD LAB BLOOD ORDERABLES Final Res ult [facility] [address] [facility] [address] [place] [address], [place] [phone] documented in this encounter Visit Diagnoses Diagnosis Acute respiratory failure, unspecified whether with hypoxia or hypercapnia (HCC) No diagnosis documented in this encounter Care Teams Supervisor Hot Dip Plating Relationship Specialty Start Date End Date Jojo Seymour [address] [place] [phone] PCP - General Internal Medicine 03/03/23 documented as of this encounter
--- OUTSIDE RECORDS SUMMARY | 2024-06-27 13:49 | XMS_ITS | Encounter Summary ---
Author Organization [facility] Address [address] [place] [address] Care Team Providers Care Interactive Web Developer Name Role Phone Jojo Seymour Primary Care Provider [phone] Encounter Details Date Type Department Care Team (Late st Contact Info) Description 04/07/2024 Lab Requisition [facility] [address] [place] [address] Natalia Oropeza MD [address] [place] [phone] Acute respiratory failure, unspecified whether with hypoxia [...] Info) Description 07/06/2024 9:00 AM EDT Follow-Up [facility] 4th floor Cardiology Medicine [address] [place] [address] Cath Lab Technologist: Elisha Montez PA [address] [place] [address] documented as of this encounter Procedures * Due to [place] law, this organization might not be sharing [...] in this encounter Results * Due to [place] law, this organization might not be sharing negative HIV tests. * (ABNORMAL) CBC Auto Differential (04/07/2024 10:04 AM EST) WBC 8.8 4.8 - 10.8 10*3/uL 04/07/2024 10:22 AM EST [facility] RBC 3.74(L) 4.20 - 5.40 10*6/uL 04/07/2024 10:22 AM EST [facility] Hemoglobin 9.4(L) 11.7 - 15.5 g/dL 04/07/2024 10:22 AM EST [facility] Hematocrit 29.1(L) 35.7 - 45.8 % 04/07/2024 10:22 AM EST [facility] MCV 77.8(L) 81.0 - 99.0 fL 04/07/2024 10:22 AM EST [facility] MCH 25.1(L) 26.0 - 34.0 pg 04/07/2024 10:22 AM EST [facility] MCHC 32.3 31.0 - 36.0 g/dL 04/07/2024 10:22 AM EST [facility] RDW 14.6 12.0 - 15.0 % 04/07/2024 10:22 AM EST [facility] RDW Standard Deviation 41.0 36.4 - 46.3 fL 04/07/2024 10:22 AM EST [facility] Platelets 310 140 - 440 10*3/uL 04/07/2024 10:22 AM EST [facility] MPV 9.4 9.4 - 12.3 fL 04/07/2024 10:22 AM EST [facility] Neutrophil % 58.6 50.0 - 75.0 % 04/07/2024 10:22 AM [facility] Immature Grans % 0.3 0.0 - 0.9 % 04/07/2024 10:22 AM EST [facility] Lymphocyte % 34.3 20.0 - 44.0 % 04/07/2024 10:22 AM [facility] Monocyte % 4.8 0.0 - 14.0 % 04/07/2024 10:22 AM EST [facility] Eosinophil % 1.7 0.0 - 5.0 % 04/07/2024 10:22 AM [facility] Basophil % 0.3 0.0 - 2.0 % 04/07/2024 10:22 AM [facility] Neutrophil # 5.14 1.80 - 7.70 10*3/uL 04/07/2024 10:22 AM [facility] Immature Grans # 0.03 0.00 - 0.03 10*3/uL 04/07/2024 10:22 AM [facility] Lymphocyte # 3.00 1.00 - 4.75 10*3/uL 04/07/2024 10:22 AM EST [facility] Monocyte # 0.40 0.00 - 6.00 10*3/uL 04/07/2024 10:22 AM [facility] Eosinophil # 0.20 0.00 - 0.80 10*3/uL 04/07/2024 10:22 AM EST [facility] Basophil # <0.03 0.00 - 0.20 10*3/uL 04/07/2024 10:22 AM [facility] nRBC % 0.0 0 - 0 /100 WBCs 04/07/2024 10:22 AM EST [facility] nRBC # <0.01 0.00 - 0.13 10*3/uL 04/07/2024 10:22 AM EST [facility] Blood Structure of peripheral vein / Unknown Venipuncture / Unknown 04/07/2024 10:04 AM EST 04/07/2024 10:04 AM EST Natalia Oropeza MD LAB BLOOD ORDERABLES Final Res ult [facility] [address] [facility] [address] [place] [address], * (ABNORMAL) Comprehensive Metabolic Panel (04/07/2024 10:04 AM EST) NA 134(L) 136 - 145 mmol/L 04/07/2024 11:00 AM EST [facility] K 4.1 3.5 - 5.1 mmol/L 04/07/2024 11:00 AM EST [facility] Cl 97(L) 98 - 109 mmol/L 04/07/2024 11:00 AM EST [facility] CO2 23 22 - 32 mmol/L 04/07/2024 11:00 AM EST [facility] Anion Gap 18 >=0 04/07/2024 11:00 AM EST [facility] Glucose 92 60 - 99 mg/dL 04/07/2024 11:00 AM EST [facility] Creatinine 0.60 0.50 - 1.12 mg/dL 04/07/2024 11:00 AM EST [facility] Calcium 9.7 8.4 - 10.4 mg/dL 04/07/2024 11:00 AM EST [facility] Total Protein 8.3 6.6 - 8.7 g/dL 04/07/2024 11:00 AM EST [facility] Albumin 3.4(L) 3.5 - 5.0 g/dL 04/07/2024 11:00 AM EST [facility] Bilirubin, Total 0.3 0.2 - 1.2 mg/dL 04/07/2024 11:00 AM EST [facility] Alkaline Phosphatase 204(H) 40 - 129 U/L 04/07/2024 11:00 AM EST [facility] AST 32 0 - 33 U/L 04/07/2024 11:00 AM EST [facility] ALT 36(H) <=33 U/L 04/07/2024 11:00 AM EST [facility] BUN 19 6 - 20 mg/dL 04/07/2024 11:00 AM EST [facility] eGFR >90 >=60 mL/min/1. 73m2 04/07/2024 11:00 AM EST [facility] Comment:The estimated glomer ular filtration rate [...] - 4.2 g/dL 04/07/2024 11:00 AM EST [facility] A/G Ratio 0.7(L) 1.5 - 3.0 04/07/2024 11:00 AM EST [facility] Blood Structure of peripheral vein / Unknown Venipuncture / Unknown 04/07/2024 10:04 AM EST 04/07/2024 10:04 AM EST us Natalia Oropeza MD LAB BLOOD ORDERABLES Final Res ult [facility] [address] [facility] [address] [place] [address], documented in this encounter Visit Diagnoses Diagnosis Acute respiratory failure, unspecified whether with hypoxia or hypercapnia (HCC) No diagnosis documented in this encounter Care Teams Interactive Web Developer Relationship Specialty Start Date End Date Jojo Seymour [address] [place] [address] PCP - General Internal Medicine 03/03/23 documented as of this encounter
--- OUTSIDE RECORDS SUMMARY | 2024-06-27 13:49 | XMS_ITS | Encounter Summary ---
Author Organization [facility] Address [address] [place] [address] Care Team Providers Care Development Spec Name Role Phone Jojo Seymour Primary Care Provider [phone] Encounter Details Date Type Department Care Team (Late Contact Info) Description 04/17/2024 Lab Requisition [facility] [address] [place] [address] Mo Starkey PA [address] [place] [address] Acute respiratory failure, unspecified whether with hypoxia [...] Info) Description 07/06/2024 9:00 AM EDT Follow-Up [facility] 4th floor Cardiology Medicine [address] [place] [address] High Man: Elisha Montez PA [address] [place] [address] documented as of this encounter Procedures * Due to [place] trit[place] law, this organization might not be sharing [...] in this encounter Results * Due to [place] trit[place] law, this organization might not be sharing negative HIV tests. * (ABNORMAL) Lipase (04/17/2024 12:44 PM EST) Lipase 135(H) 13 - 60 U/L 04/18/2024 10:14 AM EST [facility] Blood Structure of peripheral vein / Unknown Venipuncture / Unknown 04/17/2024 12:44 PM EST 04/17/2024 12:44 PM EST us Mo NICOLAS LAB BLOOD ORDERABLES Final R esult [facility] [address] [place] [phone], * (ABNORMAL) CBC Auto Differential (04/17/2024 12:44 PM EST) WBC 10.4 4.8 - 10.8 10*3/uL 04/17/2024 1:12 PM EST [facility] RBC 3.99(L) 4.20 - 5.40 10*6/uL 04/17/2024 1:12 PM EST [facility] Hemoglobin 10.0(L) 11.7 - 15.5 g/dL 04/17/2024 1:12 PM EST [facility] Hematocrit 31.1(L) 35.7 - 45.8 % 04/17/2024 1:12 PM EST [facility] MCV 77.9(L) 81.0 - 99.0 fL 04/17/2024 1:12 PM EST [facility] MCH 25.1(L) 26.0 - 34.0 pg 04/17/2024 1:12 PM EST [facility] MCHC 32.2 31.0 - 36.0 g/dL 04/17/2024 1:12 PM [facility] RDW 15.3(H) 12.0 - 15.0 % 04/17/2024 1:12 PM EST [facility] RDW Standard Deviation 43.8 36.4 - 46.3 fL 04/17/2024 1:12 PM EST [facility] Platelets 278 140 - 440 10*3/uL 04/17/2024 1:12 PM EST [facility] MPV 9.9 9.4 - 12.3 fL 04/17/2024 1:12 PM [facility] Neutrophil % 65.1 50.0 - 75.0 % 04/17/2024 1:12 PM EST [facility] Immature Grans % 0.4 0.0 - 0.9 % 04/17/2024 1:12 PM EST [facility] Lymphocyte % 27.9 20.0 - 44.0 % 04/17/2024 1:12 PM EST [facility] Monocyte % 4.5 0.0 - 14.0 % 04/17/2024 1:12 PM EST [facility] Eosinophil % 1.8 0.0 - 5.0 % 04/17/2024 1:12 PM EST [facility] Basophil % 0.3 0.0 - 2.0 % 04/17/2024 1:12 PM EST [facility] Neutrophil # 6.74 1.80 - 7.70 10*3/uL 04/17/2024 1:12 PM EST [facility] Immature Grans # 0.04(H) 0.00 - 0.03 10*3/uL 04/17/2024 1:12 PM EST [facility] Lymphocyte # 2.90 1.00 - 4.75 10*3/uL 04/17/2024 1:12 PM EST [facility] Monocyte # 0.50 0.00 - 0.60 10*3/uL 04/17/2024 1:12 PM EST [facility] Eosinophil # 0.20 0.00 - 0.80 10*3/uL 04/17/2024 1:12 PM EST [facility] Basophil # <0.03 0.00 - 0.20 10*3/uL 04/17/2024 1:12 PM EST [facility] nRBC % 0.0 0 - 0 /100 WBCs 04/17/2024 1:12 PM EST [facility] nRBC # <0.01 0.00 - 0.13 10*3/uL 04/17/2024 1:12 PM EST [facility] Blood Structure of peripheral vein / Unknown Venipuncture / Unknown 04/17/2024 12:44 PM EST 04/17/2024 12:44 PM EST us Mo NICOL[facility] LAB BLOOD ORDERABLES Final R esult [facility] [address] [place] [address] [address] [place] [address], * (ABNORMAL) Comprehensive Metabolic Panel (04/17/2024 12:44 PM EST) NA 136 136 - 145 mmol/L 04/17/2024 1:17 PM EST [facility] K 4.4 3.5 - 5.1 mmol/L 04/17/2024 1:17 PM EST [facility] Cl 99 98 - 109 mmol/L 04/17/2024 1:17 PM EST [facility] CO2 25 22 - 32 mmol/L 04/17/2024 1:17 PM EST [facility] Anion Gap 16 >=0 04/17/2024 1:17 PM [facility] Glucose 95 60 - 99 mg/dL 04/17/2024 1:17 PM [facility] Creatinine 0.57 0.50 - 1.12 mg/dL 04/17/2024 1:17 PM [facility] Calcium 9.5 8.4 - 10.4 mg/dL 04/17/2024 1:17 PM [facility] Total Protein 7.9 6.6 - 8.7 g/dL 04/17/2024 1:17 PM [facility] Albumin 3.4(L) 3.5 - 5.0 g/dL 04/17/2024 1:17 PM [facility] Bilirubin, Total 0.2 0.2 - 1.2 mg/dL 04/17/2024 1:17 PM [facility] Alkaline Phosphatase 210(H) 40 - 129 U/L 04/17/2024 1:17 PM [facility] AST 34(H) 0 - 33 U/L 04/17/2024 1:17 PM [facility] ALT 41(H) <=33 U/L 04/17/2024 1:17 PM [facility] BUN 23(H) 6 - 20 mg/dL 04/17/2024 1:17 PM [facility] eGFR >90 >=60 mL/min/1. 73m2 04/17/2024 1:17 PM [facility] Comment:The estimated glomer ular [...] - 4.2 g/dL 04/17/2024 1:17 PM EST [facility] A/G Ratio 0.8(L) 1.5 - 3.0 04/17/2024 1:17 PM EST [facility] Blood Structure of peripheral vein / Unknown Venipuncture / Unknown 04/17/2024 12:44 PM EST 04/17/2024 12:44 PM EST us Mo NICOL[facility] LAB BLOOD ORDERABLES Final R esult [facility] [address] [place] [address], [place] [phone] documented in this encounter Visit Diagnoses Diagnosis Acute respiratory failure, unspecified whether with hypoxia or hypercapnia (HCC) No diagnosis documented in this encounter Care Teams Development Spec Relationship Specialty Start Date End Date Jojo Seymour [address] [place] [phone] PCP - General Internal Medicine 03/03/23 documented as of this encounter
--- OUTSIDE RECORDS SUMMARY | 2024-06-27 13:49 | XMS_ITS | Encounter Summary ---
Author Organization [facility] Address [address] [place] [address] Care Team Providers Care Store Clerk Name Role Phone Jojo Seymour MD Primary Care Provider [phone] Encounter Details Date Type Department Care Team (Late st Contact Info) Description 06/27/2024 Orders Only GENERIC EXTERNAL DATA DEPARTMENT Provider, Generic External Data Social History Tobacco Use Types Packs/Day Years [...] Upcoming Encounters Date Type Department Care Team ([facility] st Contact Info) Description 08/15/2024 1:45 PM EDT Office Visit [facility] [address] [place] [address] Jojo Seymour MD [address] [place] [address] Pending Results Name Type Priority Associated Diagnoses Date /Time Comprehensive Metabolic Panel Lab Routine 06/27/2024 11:40 AM EDT Phosphate (As Phosphorus) Lab Routine 06/27/2024 11:40 AM EDT Magnesium Lab Routine 06/27/2024 11: 40 AM EDT Lipid Panel with Reflex to Direct LDL Lab Routine 06/27/2024 11:40 AM EDT Vitamin D, 25-Hydroxy, Total, Immunoassay Lab Routine 06/27/2024 11 :40 AM EDT Ferritin Lab Routine 06/27/2024 11: 40 AM EDT documented as of this encounter Procedures Procedure Name Priority Date/Time Associated Diagnosis Comments VITAMIN D,25-OH,TOTAL,IA Routine 06/27/2024 11:40 AM EDT VITAMIN B12/FOLATE, SERUM PANEL Routine 06/27/2024 11:40 AM EDT LIPID PANEL WITH REFLEX TO DIRECT LDL Routine 06/27/2024 11:40 AM EDT CBC WITH AUTO DIFFERENTIAL Routine 06/27/2024 11:40 AM EDT PHOSPHATE ( PHOSPHORUS) Routine 06/27/2024 11:40 AM EDT MAGNESIUM Routine 06/27/2024 11:40 AM EDT FERRITIN Routine 06/27/2024 11:40 AM EDT COMPREHENSIVE METABOLIC PANEL Routine 06/27/2024 11:40 AM EDT documented in this encounter Results * Vitamin B12 (Cobalamin) and Folate Panel, Serum (06/27/2024 11:40 AM EDT) Pathologist [facility] Vitamin B12 527 200 - 900 pg/mL [facility] Comment:NORMAL 200-900 PG/ML INDETERMINATE 160-199 PG/ML DEFICIENT < 160 PG/ML Folate 9.5 > or = 4.0 ng/mL [facility] Comment:Reference Values:> o r = 4.0 ng/mL< 4.0 ng/mL suggests folate deficiency Methotrexate, aminopterin and folinic acid(leucovorin) are chemotherapeutic agents whose molecularstructures are similar to folate; therefore, the Architectfolate assay cannot be used for patients using these drugs. 06/27/2024 11:4 0 AM EDT 06/27/2024 11:40 AM EDT us Generic External Data Provider LAB BLOOD ORDERAB LES Final Result [facility] [address] [place] [phone] * (ABNORMAL) CBC auto differential (06/27/2024 11:40 AM EDT) Pathologist [facility] White Blood Count 8.2 4.8 - 10.8 X10*3/uL [facility] Red Blood Count 5.23 4.20 - 5.50 X10*6/uL [facility] Hemoglobin 13.3 12.0 - 16.0 g/dl [facility] Hematocrit 39.2 37.0 - 47.0 % [facility] Mean Corpuscular Volume 75.0(L) 80.0 - 98.0 fL [facility] Mean Corpuscular Hemoglobin 25.4(L) 27.0 - 33.0 pg [facility] Mean Corpuscular HGB Conc 33.9 31.0 - 35.0 g/dl [facility] Red Cell Distribution Width 17.0(H) 11.0 - 16.0 % [facility] Platelet Count 205 160 - 400 X10*3/uL [facility] Mean Platelet Volume 9.5 9.4 - 12.3 fL [facility] Neutrophils Percent Auto 51.4 45 - 73 % [facility] Imm Gran Pct Auto 0.4 0.0 - 0.4 % [facility] Lymphocytes Percent Auto 41.8(H) 20 - 40 % [facility] Monocytes Percent Auto 4.2 2 - 11 % [facility] Eosinophils Percent Auto 1.8 0 - 4 % [facility] Basophils Percent Auto 0.4 0 - 2 % [facility] NRBC Pct Auto 0.0 0.0 - 0.2 /100WBC [facility] Neutrophils Absolute Auto 4.2 2.0 - 8.3 x10*3/uL [facility] Imm Gran Abs Auto 0.03 0.00 - 0.03 X10*3/uL [facility] Lymphocytes Absolute Auto 3.4 1.2 - 4.9 X10*3/uL [facility] Monocytes Absolute Auto 0.3 0.1 - 1.2 X10*3/uL [facility] Eosinophils Absolute Auto 0.2 0.0 - 0.4 X10*3/uL [facility] Basophils Absolute Auto 0.0 0.0 - 0.2 X10*3/uL [facility] NRBC Abs Auto 0.000 0.0 - 0.012 X10*3/uL [facility] 06/27/2024 11:4 0 AM EDT 06/27/2024 11:40 AM EDT us Generic External Data Provider LAB BLOOD ORDERAB LES Final Result [facility] [address] [place] [phone] documented in this encounter Visit Diagnoses Not on filedocumented in this encounter Additional Health Concerns Assessment Noted Time PHQ-9 Depression Total Score: 4 05/02/19 25 1:23 PM EST documented as of this encounter Care Teams Store Clerk Relationship Specialty Start Date End Date Jojo Seymour MD [address] [place] [address] PCP - General Internal Medicine 12/03/20 Julio Neto 04/25/24 documented as of this encounter
--- OUTSIDE RECORDS SUMMARY | 2024-06-27 13:49 | XMS_ITS | Encounter Summary ---
Author Organization [facility] Address [address] [place] [address] Care Team Providers Care Proposal Coordinator Name Role Phone Jojo Seymour Primary Care Provider [phone] Encounter Details Date Type Department Care Team (Late st Contact Info) Description 04/11/2024 Lab Requisition [facility] Lab [address] [place] [address] Juan M Conroy MD [address] [place] [address] Acute respiratory failure, unspecified whether with hypoxia [...] Info) Description 07/06/2024 9:00 AM EDT Follow-Up [facility] 4th floor Cardiology Medicine [address] [place] [address] Escort Car Driver: Elisha Montez PA [address] [place] [address] documented as of this encounter Procedures * Due to [place] state law, this organization might not be [...] this encounter Results * Due to [place] state law, this organization might not be sharing negative HIV tests. * (ABNORMAL) Microscopic Urinalysis Only (04/11/2024 9:30 AM EST) RBC, Urine None Seen None Seen, 0-2 /HPF 04/11/2024 11:08 AM EST [facility] WBC, Urine 0-2 None Seen, 0-2 /HPF 04/11/2024 11:08 AM EST [facility] Squamous Epithelial Cells, Urine 3-5 /HPF 04/11/2024 11:08 AM EST [facility] Calcium Oxalate Crystals, Urine Occasional /HPF 04/11/2024 11:08 AM EST [facility] Bacteria, Urine Occasional(A) None Seen /HPF 04/11/2024 11:08 AM EST [facility] Urine Urine specimen collection, clean catch / Unknown Non-Blood Collection / Unknown 04/11/2024 9:30 AM EST 04/11/2024 9:58 AM EST Juan M Conroy MD LAB URINE ORDERABLES Final Result [facility] [address] [place] [address] [address] [place] [address], * Hemoglobin A1c (04/11/2024 9:30 AM EST) Hemoglobin A1c 5.2 4.0 - 5.7 % 04/11/2024 10:30 AM EST [facility] Estimated Average Glucose 103 mg/dL 04/11/2024 10:30 AM EST [facility] Blood Structure of peripheral vein / Unknown Venipuncture / Unknown 04/11/2024 9:30 AM EST 04/11/2024 9:31 AM EST Juan M Conroy MD LAB BLOOD ORDERABLES Final Result Performing Organization Address City/[facility]/ZIP Co de Phone Number [facility] [address] [address], [place] [phone] * Christian Top, Urine (04/11/2024 9:30 AM EST) Pathologist [facility] Extra Tube Hold for add-ons. 04/11/2024 2:05 PM EST [facility] Comment:Auto resulted. Urine Urine specimen collection, clean catch / Unknown Non-Blood Collection / Unknown 04/11/2024 9:30 AM EST 04/11/2024 9:31 AM EST Juan M Conroy MD LAB URINE ORDERABLES Final Result Performing Organization Address [facility]/ZIP Co de Phone Number [facility] [address] [address], [place] [phone] * (ABNORMAL) Urinalysis W/Reflex to Microscopic & Culture (04/11/2024 9:30 AM EST) Color, Urine Yellow Yellow 04/11/2024 9:58 AM EST [facility] Clarity, Urine Clear Clear 04/11/2024 9:58 AM EST [facility] Specific [place], Urine 1.020 1.005 - 1.030 04/11/2024 9:58 AM EST [facility] pH, Urine 7.5 5.0 - 8.0 04/11/2024 9:58 AM EST [facility] Protein, Urine 30(A) Negative mg/dL 04/11/2024 9:58 AM EST [facility] Glucose, Urine Negative Negative mg/dL 04/11/2024 9:58 AM EST [facility] Ketones, Urine Negative Negative mg/dL 04/11/2024 9:58 AM EST [facility] Bilirubin, Urine Negative Negative 04/11/2024 9:58 AM EST [facility] Blood, Urine Negative Negative 04/11/2024 9:58 AM EST [facility] Nitrite, Urine Negative Negative 04/11/2024 9:58 AM EST [facility] Urobilinogen, Urine 0.2 0.2 - 1.0 E.U./dL 04/11/2024 9:58 AM EST [facility] Leukocyte Esterase, Urine Trace(A) Negative 04/11/2024 9:58 AM EST [facility] Urine Urine specimen collection, clean catch / Unknown Non-Blood Collection / Unknown 04/11/2024 9:30 AM EST 04/11/2024 9:31 AM EST [facility] - 04/11/2024 9:58 AM EST Some urinalysis results will not meet the criteria for reflex urine culture although certain urine values may be abnormal. ??Additional testing can be ordered by the provider if clinically warranted. Juan M Conroy MD LAB URINE ORDERABLES Final Result Performing Organization Address City/State/[facility] Co de Phone Number [facility] [address] [place] [address] [address] [place] [address], * (ABNORMAL) CBC Auto Differential (04/11/2024 9:30 AM EST) WBC 11.5(H) 4.8 - 10.8 10*3/uL 04/11/2024 9:50 AM EST [facility] RBC 3.76(L) 4.20 - 5.40 10*6/uL 04/11/2024 9:50 AM [facility] Hemoglobin 9.5(L) 11.7 - 15.5 g/dL 04/11/2024 9:50 AM [facility] Hematocrit 29.3(L) 35.7 - 45.8 % 04/11/2024 9:50 AM [facility] MCV 77.9(L) 81.0 - 99.0 fL 04/11/2024 9:50 AM EST [facility] MCH 25.3(L) 26.0 - 34.0 pg 04/11/2024 9:50 AM [facility] MCHC 32.4 31.0 - 36.0 g/dL 04/11/2024 9:50 AM [facility] RDW 14.7 12.0 - 15.0 % 04/11/2024 9:50 AM [facility] RDW Standard Deviation 41.8 36.4 - 46.3 fL 04/11/2024 9:50 AM [facility] Platelets 285 140 - 440 10*3/uL 04/11/2024 9:50 AM [facility] MPV 9.3(L) 9.4 - 12.3 fL 04/11/2024 9:50 AM [facility] Neutrophil % 68.0 50.0 - 75.0 % 04/11/2024 9:50 AM [facility] Immature Grans % 0.3 0.0 - 0.9 % 04/11/2024 9:50 AM [facility] Lymphocyte % 25.7 20.0 - 44.0 % 04/11/2024 9:50 AM [facility] Monocyte % 4.6 0.0 - 14.0 % 04/11/2024 9:50 AM [facility] Eosinophil % 1.1 0.0 - 5.0 % 04/11/2024 9:50 AM [facility] Basophil % 0.3 0.0 - 2.0 % 04/11/2024 9:50 AM [facility] Neutrophil # 7.84(H) 1.80 - 7.70 10*3/uL 04/11/2024 9:50 AM EST [facility] Immature Grans # 0.03 0.00 - 0.03 10*3/uL 04/11/2024 9:50 AM EST [facility] Lymphocyte # 3.00 1.00 - 4.75 10*3/uL 04/11/2024 9:50 AM EST [facility] Monocyte # 0.50 0.00 - 6.00 10*3/uL 04/11/2024 9:50 AM EST [facility] Eosinophil # 0.10 0.00 - 0.80 10*3/uL 04/11/2024 9:50 AM EST [facility] Basophil # <0.03 0.00 - 0.20 10*3/uL 04/11/2024 9:50 AM EST [facility] nRBC % 0.0 0 - 0 /100 WBCs 04/11/2024 9:50 AM EST [facility] nRBC # <0.01 0.00 - 0.13 10*3/uL 04/11/2024 9:50 AM EST [facility] Blood Structure of peripheral vein / Unknown Venipuncture / Unknown 04/11/2024 9:30 AM EST 04/11/2024 9:31 AM EST Juan M Conroy MD LAB BLOOD ORDERABLES Final Result Performing Organization Address City/State/[facility] Co de Phone Number [facility] [address] [place] [address], * Vitamin B12 (04/11/2024 9:30 AM EST) Vitamin B12 713 232 - 1,245 pg/mL 04/11/2024 10:29 AM EST [facility] Blood Structure of peripheral vein / Unknown Venipuncture / Unknown 04/11/2024 9:30 AM EST 04/11/2024 9:31 AM EST Juan M Conroy MD LAB BLOOD ORDERABLES Final Result Performing Organization Address [facility] de Phone Number [facility] [address] [address], * TSH (04/11/2024 9:30 AM EST) TSH 3.590 0.270 - 4.200 uIU/mL 04/11/2024 10:21 AM EST [facility] Comment: Females: 1st trimester ? 0.150-4.000 ??IU/mL 2nd trimester ?? 0.310-4.170 ?IU/mL 3rd trimester ?0.380-4.150 ?IU/mL Blood Structure of peripheral vein / Unknown Venipuncture / Unknown 04/11/2024 9:30 AM EST 04/11/2024 9:31 AM EST Juan M Conroy MD LAB BLOOD ORDERABLES Final Result Performing Organization Address [facility] de Phone Number [facility] [address] [address], * T4, Free (04/11/2024 9:30 AM EST) Free T4 1.12 0.80 - 1.80 ng/dL 04/11/2024 10:21 AM EST [facility] Comment: Females: (ng/dL) First Trimester [...] BLOOD ORDERABLES Final Result Performing Organization Address [facility]/ZIP Co de Phone Number [facility] [address] [address], [place] [phone] * (ABNORMAL) Phosphorus (04/11/2024 9:30 AM EST) Phosphorus 5.9(H) 2.5 - 4.5 mg/dL 04/11/2024 10:21 AM EST [facility] Blood Structure of peripheral vein / Unknown Venipuncture / Unknown 04/11/2024 9:30 AM EST 04/11/2024 9:31 AM EST us Juan M Conroy MD LAB BLOOD ORDERABLES Final Result Performing Organization Address City/[facility]/ZIP Co de Phone Number [facility] [address] [address], [place] [phone] * Magnesium (04/11/2024 9:30 AM EST) MG 2.0 1.5 - 2.5 mg/dL 04/11/2024 10:21 AM EST [facility] Blood Structure of peripheral vein / Unknown Venipuncture / Unknown 04/11/2024 9:30 AM EST 04/11/2024 9:31 AM EST us Juan M Conroy MD LAB BLOOD ORDERABLES Final Result Performing Organization Address City/[facility]/ZIP Co de Phone Number [facility] [address] [address], [place] [phone] * N-terminal ProBrain Natriuretic Peptide - [facility]/Darrell Only (04/11/2024 9:30 AM EST) Pro-B-Type Natriuretic Peptide 102 <=450 pg/mL 04/11/2024 10:15 AM EST [facility] Comment: RULE IN CHF >/= [...] BLOOD ORDERABLES Final Result Performing Organization Address [facility] Co de Phone Number [facility] [address] [address], [place] [phone] * Ammonia (04/11/2024 9:30 AM EST) Pathologist [facility] Ammonia 25 11 - 51 umol/L 04/11/2024 10:11 AM EST [facility] Blood Structure of peripheral vein / Unknown Venipuncture / Unknown 04/11/2024 9:30 AM EST 04/11/2024 9:31 AM EST Juan M Conroy MD LAB BLOOD ORDERABLES Final Result Performing Organization Address [facility] Co de Phone Number [facility] [address] [address], [place] [phone] * (ABNORMAL) Basic Metabolic Panel (04/11/2024 9:30 AM EST) Pathologist [facility] NA 136 136 - 145 mmol/L 04/11/2024 10:21 AM EST [facility] K 4.6 3.5 - 5.1 mmol/L 04/11/2024 10:21 AM EST [facility] Cl 100 98 - 109 mmol/L 04/11/2024 10:21 AM EST [facility] CO2 25 22 - 32 mmol/L 04/11/2024 10:21 AM EST [facility] BUN 19 6 - 20 mg/dL 04/11/2024 10:21 AM EST [facility] Creatinine 0.61 0.50 - 1.12 mg/dL 04/11/2024 10:21 AM EST [facility] Glucose 101(H) 60 - 99 mg/dL 04/11/2024 10:21 AM EST [facility] Calcium 9.4 8.4 - 10.4 mg/dL 04/11/2024 10:21 AM EST [facility] Anion Gap 16 >=0 04/11/2024 10:21 AM EST [facility] eGFR >90 >=60 mL/min/1. 73m2 04/11/2024 10:21 AM EST [facility] Comment:The estimated [...] Conroy MD LAB BLOOD ORDERABLES Final Result [facility] [address] [place] [address], [place] [phone] documented in this encounter Visit Diagnoses Diagnosis Acute respiratory failure, unspecified whether with hypoxia or hypercapnia (HCC) No diagnosis documented in this encounter Care Teams Proposal Coordinator Relationship Specialty Start Date End Date Jojo Seymour [address] [place] [address] PCP - General Internal Medicine 03/03/23 documented as of this encounter
--- OUTSIDE RECORDS SUMMARY | 2024-06-27 13:49 | XMS_ITS | Encounter Summary ---
Author Organization [employer] [facility] Address [address] [place] [address] 7 [place] [address] Care Team Providers Care Medical Director Occupational Health Name Role Phone Jojo Seymour MD Primary Care Provider [phone] Encounter Details Date Type Department Care Team ([facility] Contact Info) Description 10/14/2022 Telephone [facility] PED[facility] [address] [place] [address] Jojo Seymour MD [address] [place] [address] Social History Tobacco Use Types Packs/Day Years [...] Upcoming Encounters Date Type Department Care Team ([facility] Contact Info) Description 08/15/2024 1:45 PM EDT Office Visit [facility] [address] [place] [address] Jojo Seymour MD [address] [place] [address] documented as of this encounter Visit Diagnoses Not on filedocumented in this encounter Care Teams Medical Director Occupational Health Relationship Specialty Start Date End Date Jojo Seymour MD [address] [place] [address] PCP - General Internal Medicine 12/03/20 Julio NERI 04/25/24 documented as of this encounter
--- OUTSIDE RECORDS SUMMARY | 2024-06-27 13:49 | XMS_ITS | Encounter Summary ---
Author Organization [email or web address] Address [address] [facility] 7 [place] [address] Care Team Providers Care Quarry Supervisor Name Role Phone Jojo Seymour MD Primary Care Provider [phone] Reason for Visit * Reason Onset Date Comments Med Refill 06/01/2024 Encounter Details Date Type Department Care Team ([facility] st Contact Info) Description 06/01/2024 Telephone [facility] [address] [place] [address] Jojo Seymour MD [address] [place] [address] Med Refill Social History Tobacco Use Types [...] 06/01/2024 10:09 AM EDT Pt walked into [facility] with request to refill medications at recommendation [...] Upcoming Encounters Date Type Department Care Team ([facility] st Contact Info) Description 08/15/2024 1:45 PM EDT Office Visit [facility] MED [facility] P[facility] [address] [place] [address] Jojo Seymour MD [address] [place] [address] documented as of this encounter Visit Diagnoses Not on filedocumented in this encounter Additional Health Concerns Assessment Noted Time PHQ-9 Depression Total Score: 4 05/02/19 25 1:23 PM EST documented as of this encounter Care Teams Quarry Supervisor Relationship Specialty Start Date End Date Jojo Seymour MD [address] [place] [address] PCP - General Internal Medicine 12/03/20 Julio NERI 04/25/24 documented as of this encounter
--- OUTSIDE RECORDS SUMMARY | 2024-06-27 13:49 | XMS_ITS | Encounter Summary ---
Author Organization [employer] Address [address] [facility] 7t [place] [address] Care Team Providers Care Broomcorn Scraper Name Role Phone Jojo Seymour MD Primary Care Provider [phone] Encounter Details Date Type Department Care Team (Late st Contact Info) Description 06/01/2024 Orders Only [facility] MED[facility] [address] [place] [address] Jojo Seymour MD [address] [place] [address] Other chronic pancreatitis (CMS/HCC) (Primary Dx); Acute [...] Upcoming Encounters Date Type Department Care Team ([facility] st Contact Info) Description 08/15/2024 1:45 PM EDT Office Visit [facility] MED [facility] PEDS [address] [place] [address] Jojo Seymour MD [address] [place] [address] documented as of this encounter Visit Diagnoses Diagnosis Other chronic pancreatitis (CMS/HCC)- Primary Acute midline low back pain without sciatica Primary hypertension Unspecified essential hypertension Nausea Nausea alone Microcytic anemia Unspecified iron deficiency anemia documented in this encounter Additional Health Concerns Assessment Noted Time PHQ-9 Depression Total Score: 4 05/02/19 25 1:23 PM EST documented as of this encounter Care Teams Broomcorn Scraper Relationship Specialty Start Date End Date Jojo Seymour MD [address] [place] [address] PCP - General Internal Medicine 12/03/20 Julio NERI 04/25/24 documented as of this encounter
--- OUTSIDE RECORDS SUMMARY | 2024-06-27 13:49 | XMS_ITS | Encounter Summary ---
Author Organization [employer] [facility] Address [address] [place] [address] 7 [place] [address] Care Team Providers Care Loans Consultant Name Role Phone Jojo Seymour MD Primary Care Provider [phone] Encounter Details Date Type Department Care Team ([facility] Contact Info) Description 07/07/2022 Abstract [employer] [facility] [address] [place] [address] Jojo Syemour MD [address] [place], [place] [phone] Social History Tobacco Use Types Packs/Day Years [...] Upcoming Encounters Date Type Department Care Team ([facility] Contact Info) Description 08/15/2024 1:45 PM EDT Office Visit [facility]EDS [address] [place], [place] [phone] Jojo Seymour MD [address] [place] [address] documented as of this encounter Visit Diagnoses Not on filedocumented in this encounter Care Teams Loans Consultant Relationship Specialty Start Date End Date Jojo Seymour MD [address] [place] [address] PCP - General Internal Medicine 12/03/20 Julio NERI 04/25/24 documented as of this encounter
--- OUTSIDE RECORDS SUMMARY | 2024-06-27 13:49 | XMS_ITS | Encounter Summary ---
Author Organization [facility] Address [address] [place] [address] Care Team Providers Care Credit Card Specialist Name Role Phone Jojo Seymour Primary Care Provider [phone] Encounter Details Date Type Department Care Team (Late Contact Info) Description 03/27/2024 Lab Requisition [facility] [address] [place] [address] Mo Starkey PA [address] [place] [address] Acute respiratory failure, unspecified whether with hypoxia [...] Info) Description 07/06/2024 9:00 AM EDT Follow-Up [facility] 4th floor Cardiology Medicine [address] [place] [address] Plasterer Foreman: Elisha Montez PA [address] [place] [address] documented as of this encounter Procedures * Due to [place] GuestD[employer]en law, this organization might not be sharing [...] this encounter Results * Due to [place] GuestDriven law, this organization might not be sharing negative HIV tests. * (ABNORMAL) CBC Auto Differential (03/27/2024 10:03 AM EST) WBC 12.2(H) 4.8 - 10.8 10*3/uL 03/27/2024 10:21 AM EST [facility] RBC 3.60(L) 4.20 - 5.40 10*6/uL 03/27/2024 10:21 AM EST [facility] Hemoglobin 9.3(L) 11.7 - 15.5 g/dL 03/27/2024 10:21 AM EST [facility] Hematocrit 28.9(L) 35.7 - 45.8 % 03/27/2024 10:21 AM EST [facility] MCV 80.3(L) 81.0 - 99.0 fL 03/27/2024 10:21 AM EST [facility] MCH 25.8(L) 26.0 - 34.0 pg 03/27/2024 10:21 AM EST [facility] MCHC 32.2 31.0 - 36.0 g/dL 03/27/2024 10:21 AM EST [facility] RDW 14.7 12.0 - 15.0 % 03/27/2024 10:21 AM [facility] RDW Standard Deviation 43.6 36.4 - 46.3 fL 03/27/2024 10:21 AM EST [facility] Platelets 375 140 - 440 10*3/uL 03/27/2024 10:21 AM [facility] MPV 9.2(L) 9.4 - 12.3 fL 03/27/2024 10:21 AM [facility] Neutrophil % 67.4 50.0 - 75.0 % 03/27/2024 10:21 AM [facility] Immature Grans % 0.3 0.0 - 0.9 % 03/27/2024 10:21 AM [facility] Lymphocyte % 25.3 20.0 - 44.0 % 03/27/2024 10:21 AM [facility] Monocyte % 4.7 0.0 - 14.0 % 03/27/2024 10:21 AM [facility] Eosinophil % 2.0 0.0 - 5.0 % 03/27/2024 10:21 AM [facility] Basophil % 0.3 0.0 - 2.0 % 03/27/2024 10:21 AM [facility] Neutrophil # 8.22(H) 1.80 - 7.70 10*3/uL 03/27/2024 10:21 AM [facility] Immature Grans # 0.04(H) 0.00 - 0.03 10*3/uL 03/27/2024 10:21 AM [facility] Lymphocyte # 3.10 1.00 - 4.75 10*3/uL 03/27/2024 10:21 AM [facility] Monocyte # 0.60 0.00 - 6.00 10*3/uL 03/27/2024 10:21 AM [facility] Eosinophil # 0.20 0.00 - 0.80 10*3/uL 03/27/2024 10:21 AM [facility] Basophil # <0.03 0.00 - 0.20 10*3/uL 03/27/2024 10:21 AM [facility] nRBC % 0.0 0 - 0 /100 WBCs 03/27/2024 10:21 AM [facility] nRBC # <0.01 0.00 - 0.13 10*3/uL 03/27/2024 10:21 AM EST [facility] Blood Structure of peripheral vein / Unknown Venipuncture / Unknown 03/27/2024 10:03 AM EST 03/27/2024 10:03 AM EST us Mo [facility] BLOOD ORDERABLES Final R esult [facility] [address] [place] [address] [address] [place] [address], [place] [phone] * (ABNORMAL) Comprehensive Metabolic Panel (03/27/2024 10:03 AM EST) NA 134(L) 136 - 145 mmol/L 03/27/2024 10:44 AM EST [facility] K 4.5 3.5 - 5.1 mmol/L 03/27/2024 10:44 AM EST [facility] Cl 97(L) 98 - 109 mmol/L 03/27/2024 10:44 AM EST [facility] CO2 27 22 - 32 mmol/L 03/27/2024 10:44 AM EST [facility] Anion Gap 15 >=0 03/27/2024 10:44 AM EST [facility] Glucose 123(H) 60 - 99 mg/dL 03/27/2024 10:44 AM EST [facility] Creatinine 0.50 0.50 - 1.12 mg/dL 03/27/2024 10:44 AM EST [facility] Calcium 9.6 8.4 - 10.4 mg/dL 03/27/2024 10:44 AM EST [facility] Total Protein 8.1 6.6 - 8.7 g/dL 03/27/2024 10:44 AM EST [facility] Albumin 3.3(L) 3.5 - 5.0 g/dL 03/27/2024 10:44 AM EST [facility] Bilirubin, Total 0.3 0.2 - 1.2 mg/dL 03/27/2024 10:44 AM EST [facility] Alkaline Phosphatase 246(H) 40 - 129 U/L 03/27/2024 10:44 AM EST [facility] AST 23 0 - 33 U/L 03/27/2024 10:44 AM EST [facility] ALT 25 <=33 U/L 03/27/2024 10:44 AM EST [facility] BUN 24(H) 6 - 20 mg/dL 03/27/2024 10:44 AM EST [facility] eGFR >90 >=60 mL/min/1. 73m2 03/27/2024 10:44 AM EST [facility] Comment:The estimated glomer ular filtration [...] - 4.2 g/dL 03/27/2024 10:44 AM EST [facility] A/G Ratio 0.7(L) 1.5 - 3.0 03/27/2024 10:44 AM EST [facility] Blood Structure of peripheral vein / Unknown Venipuncture / Unknown 03/27/2024 10:03 AM EST 03/27/2024 10:03 AM EST us [facility] BLOOD ORDERABLES Final R esult [facility] [address] [facility] [address] [place] [address], [place] [phone] documented in this encounter Visit Diagnoses Diagnosis Acute respiratory failure, unspecified whether with hypoxia or hypercapnia (HCC) No diagnosis documented in this encounter Care Teams Credit Card Specialist Relationship Specialty Start Date End Date Jojo Seymour [address] [place] [address] PCP - General Internal Medicine 03/03/23 documented as of this encounter
--- OUTSIDE RECORDS SUMMARY | 2024-06-27 13:49 | XMS_ITS | Encounter Summary ---
Author Organization [employer] Address [address] [facility] 7t [place] [address] Care Team Providers Care Extrusion Press Supervisor Name Role Phone Jojo Seymour MD Primary Care Provider [phone] Reason for Visit * Reason Onset Date Comments FYI 04/21/2024 Encounter Details Date Type Department Care Team (Late st Contact Info) Description 04/21/2024 Telephone [facility] [address] [place] [address] Jojo Seymour MD [address] [place] [phone] FYI Social History Tobacco Use Types Packs/Day [...] 04/21/2024 8:33 AM EST Tc from Chyna (nursing home social worker) with [facility] informing pt was supposed to get discharge today 04/21/2024 , discharge date is now put on hold. If any questions please contact Chyna at [phone] documented in this encounter Plan of Treatment Upcoming Encounters Date Type Department Care Team (Late st Contact Info) Description 08/15/2024 1:45 PM EDT Office Visit [facility] [address] [place] [address] Jojo Seymour MD [address] [place] [address] documented as of this encounter Visit Diagnoses Not on filedocumented in this encounter Care Teams Extrusion Press Supervisor Relationship Specialty Start Date End Date Jojo Seymour MD [address] [place] [address] PCP - General Internal Medicine 12/03/20 Julio NERI 04/25/24 documented as of this encounter
--- OUTSIDE RECORDS SUMMARY | 2024-06-27 13:49 | XMS_ITS | Encounter Summary ---
Author Organization [facility] Address [address] [place] [address] Care Team Providers Care Early Childhood Education Worker Name Role Phone Jojo Seymour Primary Care Provider [phone] Encounter Details Date Type Department Care Team (Late st Contact Info) Description 04/10/2024 Lab Requisition [facility] [address] [place] [address] Mo Starkey PA [address] [place] [id number] Acute and chronic respiratory failure with hypoxia; [...] Info) Description 07/06/2024 9:00 AM EDT Follow-Up [facility] 4th floor Cardiology Medicine [address] [place] [address] Mascara Molder: Elisha Montez PA [address] [place] [address] [phone] documented as of this encounter Procedures * Due to [place] [employer] law, this organization might not be sharing negative HIV tests. Procedure Name Priority Date/Time Associated Diagnosis Comments CBC AUTO DIFFERENTIAL Routine 04/10/2024 10:25 AM EST Acute and chronic respiratory failure with hypoxia (HCC) No diagnosis COMPREHENSIVE METABOLIC PANEL Routine 04/10/2024 10:25 AM EST Acute and chronic respiratory failure with hypoxia (HCC) No diagnosis documented in this encounter Results * Due to [employer] law, this organization might not be sharing negative HIV tests. * (ABNORMAL) Comprehensive Metabolic Panel (04/10/2024 10:25 AM EST) NA 134(L) 136 - 145 mmol/L 04/10/2024 11:15 AM EST [facility] K 4.1 3.5 - 5.1 mmol/L 04/10/2024 11:15 AM EST [facility] Cl 98 98 - 109 mmol/L 04/10/2024 11:15 AM EST [facility] CO2 27 22 - 32 mmol/L 04/10/2024 11:15 AM EST [facility] Anion Gap 13 >=0 04/10/2024 11:15 AM [facility] Glucose 92 60 - 99 mg/dL 04/10/2024 11:15 AM [facility] Creatinine 0.57 0.50 - 1.12 mg/dL 04/10/2024 11:15 AM EST [facility] Calcium 9.3 8.4 - 10.4 mg/dL 04/10/2024 11:15 AM [facility] Total Protein 7.9 6.6 - 8.7 g/dL 04/10/2024 11:15 AM EST [facility] Albumin 3.3(L) 3.5 - 5.0 g/dL 04/10/2024 11:15 AM EST [facility] Bilirubin, Total 0.2 0.2 - 1.2 mg/dL 04/10/2024 11:15 AM EST [facility] Alkaline Phosphatase 198(H) 40 - 129 U/L 04/10/2024 11:15 AM EST [facility] AST 20 0 - 33 U/L 04/10/2024 11:15 AM EST [facility] ALT 24 <=33 U/L 04/10/2024 11:15 AM EST [facility] BUN 20 6 - 20 mg/dL 04/10/2024 11:15 AM EST [facility] eGFR >90 >=60 mL/min/1. 73m2 04/10/2024 11:15 AM EST [facility] Comment:The estimated glomer ular filtration rate [...] - 4.2 g/dL 04/10/2024 11:15 AM EST [facility] A/G Ratio 0.7(L) 1.5 - 3.0 04/10/2024 11:15 AM EST [facility] Blood Structure of peripheral vein / Unknown Venipuncture / Unknown 04/10/2024 10:25 AM EST 04/10/2024 10:25 AM EST us Mo NICOLAS LAB BLOOD ORDERABLES Final R esult [facility] [address] [place] [phone], * (ABNORMAL) CBC Auto Differential (04/10/2024 10:25 AM EST) WBC 12.7(H) 4.8 - 10.8 10*3/uL 04/10/2024 10:54 AM [facility] RBC 3.80(L) 4.20 - 5.40 10*6/uL 04/10/2024 10:54 AM [facility] Hemoglobin 9.5(L) 11.7 - 15.5 g/dL 04/10/2024 10:54 AM [facility] Hematocrit 29.6(L) 35.7 - 45.8 % 04/10/2024 10:54 AM [facility] MCV 77.9(L) 81.0 - 99.0 fL 04/10/2024 10:54 AM [facility] MCH 25.0(L) 26.0 - 34.0 pg 04/10/2024 10:54 AM [facility] MCHC 32.1 31.0 - 36.0 g/dL 04/10/2024 10:54 AM [facility] RDW 14.7 12.0 - 15.0 % 04/10/2024 10:54 AM [facility] RDW Standard Deviation 41.7 36.4 - 46.3 fL 04/10/2024 10:54 AM [facility] Platelets 299 140 - 440 10*3/uL 04/10/2024 10:54 AM [facility] MPV 9.3(L) 9.4 - 12.3 fL 04/10/2024 10:54 AM [facility] Neutrophil % 72.6 50.0 - 75.0 % 04/10/2024 10:54 AM [facility] Immature Grans % 0.5 0.0 - 0.9 % 04/10/2024 10:54 AM [facility] Lymphocyte % 22.1 20.0 - 44.0 % 04/10/2024 10:54 AM [facility] Monocyte % 3.7 0.0 - 14.0 % 04/10/2024 10:54 AM [facility] Eosinophil % 0.9 0.0 - 5.0 % 04/10/2024 10:54 AM EST [facility] Basophil % 0.2 0.0 - 2.0 % 04/10/2024 10:54 AM EST [facility] Neutrophil # 9.25(H) 1.80 - 7.70 10*3/uL 04/10/2024 10:54 AM EST [facility] Immature Grans # 0.06(H) 0.00 - 0.03 10*3/uL 04/10/2024 10:54 AM EST [facility] Lymphocyte # 2.80 1.00 - 4.75 10*3/uL 04/10/2024 10:54 AM EST [facility] Monocyte # 0.50 0.00 - 6.00 10*3/uL 04/10/2024 10:54 AM EST [facility] Eosinophil # 0.10 0.00 - 0.80 10*3/uL 04/10/2024 10:54 AM EST [facility] Basophil # <0.03 0.00 - 0.20 10*3/uL 04/10/2024 10:54 AM EST [facility] nRBC % 0.0 0 - 0 /100 WBCs 04/10/2024 10:54 AM EST [facility] nRBC # <0.01 0.00 - 0.13 10*3/uL 04/10/2024 10:54 AM EST [facility] Blood Structure of peripheral vein / Unknown Venipuncture / Unknown 04/10/2024 10:25 AM EST 04/10/2024 10:25 AM EST us Mo NICOLAS LAB BLOOD ORDERABLES Final R esult [facility] [address] [facility] [address] [place] [address], documented in this encounter Visit Diagnoses Diagnosis Acute and chronic respiratory failure with hypoxia (HCC) No diagnosis documented in this encounter Care Teams Early Childhood Education Worker Relationship Specialty Start Date End Date Jojo Seymour [address] [place] [phone] PCP - General Internal Medicine 03/03/23 documented as of this encounter
--- OUTSIDE RECORDS SUMMARY | 2024-06-27 13:50 | XMS_ITS | Clinical Summary ---
Author Organization [facility] Address [address] [place] [address] Care Team Providers Care Drink Box Mechanic Name Role Phone Jojo Seymour MD Primary Care Provider [phone] Allergies No known active allergies Medications Medication [...] trach 12/10/23 for resp failure, intubated with [place] [facility] with no apparent issues at [facility] in ICU setting Difficult airway 12/10/2023 Difficult airway for intubation 12/10/2023 Overview (03/07/2024): DART: Recannulate vs intubate from above- both acceptable Severe malnutrition (HCC) Ac [place]; wt loss >7.5% x 3month, severe muscle [...] Type Department Care Team Description 06/13/2024 Telephone [facility] [address] [place] [address] Sadia Adhikari MA 06/13/2024 Telephone [facility] [address] [place] [address] Sadia Adhikari MA Bypass Screening 06/12/2024 Telephone [facility] [address] [place] [phone] Jahaira Sykes MA 05/29/2024 11:30 AM EDT Office Visit [facility] [address] [phone] Cassie Castillo MD Acute necrotizing pancreatitis (Primary Dx); Abdominal fluid collection; Gastrostomy tube present (HCC) 05/29/2024 Travel 05/23/2024 11:00 AM EST Telemedicine [facility] [address] [place] [address] [place] [phone] Leyla Lujan APRN On tube feeding diet (Primary Dx); Severe malnutrition (HCC) Acute; wt loss >7.5% x 3month, severe muscle wasting (quadriceps, gastrocnemius), moderate fat loss (orbital, buccal, triceps), moderate muscle loss (pectoralis, temporalis); Acute necrotizing pancreatitis 05/16/2024 11:00 AM EST Telemedicine [facility] [address] [place] [phone] Leyla Lujan APRN Acute necrotizing pancreatitis (Primary Dx); Severe malnutrition (HCC) Acute; wt loss >7.5% x 3month, severe muscle wasting (quadriceps, gastrocnemius), moderate fat loss (orbital, buccal, triceps), moderate muscle loss (pectoralis, temporalis); On tube feeding diet 05/16/2024 Travel 05/01/2024 11:00 AM EST Office Visit [facility] [address] [place] [address] [place] [address], [place] [address] Cassie Castillo MD Acute necrotizing pancreatitis (Primary Dx); On tube feeding diet; Severe malnutrition (HCC) Acute; wt loss >7.5% x 3month, severe muscle wasting (quadriceps, gastrocnemius), moderate fat loss (orbital, buccal, triceps), moderate muscle loss (pectoralis, temporalis); Abdominal fluid collection 05/01/2024 Travel 04/20/2024 Documentation [facility] [address] [phone] Leyla Lujan, PIERCING ARTIST 04/20/2024 Telephone [facility] [address] [phone] Leyla Lujan, PIERCING ARTIST 04/18/2024 1:00 PM EST Office Visit [facility] [address] [phone] Leyla Lujan, PIERCING ARTIST Acute necrotizing pancreatitis (Primary Dx); Severe malnutrition (HCC) Acute; wt loss >7.5% x 3month, severe muscle wasting (quadriceps, gastrocnemius), moderate fat loss (orbital, buccal, triceps), moderate muscle loss (pectoralis, temporalis); On tube feeding diet 04/18/2024 Travel 04/14/2024 Orders Only [facility] [address] [phone] Cuong Kumar MD 04/06/2024 2:40 PM EST - 04/07/2024 6:13 AM EST Emergency [facility] Emergency Department [address] [place] [address] Bang Roman MD STEVE drain, broken (Primary Dx) Discharge Disposition: Group Home Facility 04/06/2024 Travel 04/06/2024 Telephone [facility] [address] [phone] Cassie Castillo MD Advice Only 03/29/2024 Telephone [facility] Surgical Oncology [place] [address] [place] [address] Leyla Lujan APRN from Last [...] drink = 0.6 oz pur e alcohol) [facility] Utilities Answer Date Recorded In the past [...] place to sleep or slept in a group home (including now)? No 11/08/2023 Sex and Gender [...] this topic Medical Devices Implanted Type Area Hat Block Maker Device Identifier Shelf Expiration Date Model / Serial / Lot [id number] Kit Peg 20fr Push Evv Enfit - [id number] Implanted:Qty: 1 on 01/19/2024 by Iglesia Bhagat MD at [facility] Tube N/A: Stomach [employer] JENN [id number] 11/19/2024 [id number] / / [id number] Kit Peg Corflo-Ultra Enfit Polyurethane Silicone Jordan L36 - [id number] Implanted:Qty: 1 on 01/26/2024 by Kaiser Petersen MD at [facility] Tube [employer] [id number] / / [id number] Kit Jejunostomy 45cm 16fr Daysi Alejandro Radopq Feed Tube Internal - [id number] Implanted:Qty: 1 on 02/16/2024 by Andre ProceduralistMD at [facility] Tube N/A: Abdomen [employer] [id number] 07/13/2025 [id number] / / [id number] Explanted Type Area Hat Block Maker Device Identifier Shelf Expiration Date Model / Serial / Lot [id number] Stent Pancreatic 20mm 10mm Axs Sterl Lf Disp Electrocautery - [id number] Implanted:Qty: 1 on 11/17/2023 by Gio Stewart MD at [facility] Explanted:Qty: 1 on 02/15/2024 by Robert Carrero MD at [facility] Stent N/A: Duodenum [employer] JENN [id number] 04/21/2024 [id number] / / [id number] Stent Biliary Zimmon 10fr 4cm Taper Tip Polyethe .035in 2 - [id number] Implanted:Qty: 1 on 02/15/2024 by Robert Carrero MD at [facility] Explanted:Qty: 1 on 02/29/2024 by Brad Beasley MD at [facility] Stent N/A: Bile Duct [employer] [id number] 11/01/2026 [id number] / / [id number] Procedures Procedure Name Priority Date/Time Associated Diagnosis [...] to prior. Interpreted by: ??Moe Gil DO Green Hide Inspector I personally reviewed the images and the [...] to prior. Interpreted by: Moe Gil DO Green Hide Inspector I personally reviewed the images and the resident's preliminary report and AGREE with the report as it is now presented (RADPAL1). Bang Roman MD IMG CT ORDERA BLES * (ABNORMAL) Complete Blood Count, with Differential (04/06/2024 2:56 PM EST) White Blood Cell Count 10.6 4.0 - 11.0 Thou/uL 04/06/2024 3:32 PM [facility] Platelet Count 318 150 - 450 Thou/uL 04/06/2024 3:32 PM [facility] Hemoglobin 9.7(L) 11.7 - 15.7 g/dL 04/06/2024 3:32 PM [facility] Hematocrit 31.1(L) 35.0 - 47.0 % 04/06/2024 3:32 PM [facility] Red Blood Cell Count 3.94(L) 4.00 - 5.40 Mil/uL 04/06/2024 3:32 PM [facility] MCV 79(L) 80 - 100 fL 04/06/2024 3:32 PM [facility] MCH 24.6(L) 26.0 - 34.0 pg 04/06/2024 3:32 PM [facility] MCHC 31.2 30.0 - 36.0 g/dL 04/06/2024 3:32 PM [facility] RDW 14.4 11.5 - 14.5 % 04/06/2024 3:32 PM [facility] MPV 9.3 7.5 - 12.5 fL 04/06/2024 3:32 PM [facility] Neutrophils Auto 62.0 % 04/06/19 3:32 PM [facility] Immature Granulocytes 0.4 % 04/06/2024 3:32 PM [facility] Lymphocytes Auto 32.1 % 04/06/19 3:32 PM [facility] Monocytes Auto 4.0 % 04/06/2024 3:32 PM [facility] Eosinophils Auto 1.1 % 04/06/19 3:32 PM [facility] Basophils Auto 0.4 % 04/06/2024 3:32 PM [facility] Abs Neutrophils Auto 6.55 2.00 - 7.50 Thou/uL 04/06/2024 3:32 PM [facility] Abs Immature Granulocytes 0.04 0.00 - 0.10 Thou/uL 04/06/2024 3:32 PM [facility] Abs Lymphocytes Auto 3.39 1.50 - 4.50 Thou/uL 04/06/2024 3:32 PM [facility] Abs Monocytes Auto 0.42 0.20 - 1.50 Thou/uL 04/06/2024 3:32 PM [facility] Abs Eosinophils Auto 0.12 0.00 - 0.70 Thou/uL 04/06/2024 3:32 PM [facility] Abs Basophils Auto 0.04 0.00 - 0.20 Thou/uL 04/06/2024 3:32 PM [facility] Blood Blood specimen / Unknown 04/06/2024 2:56 PM EST 04/06/2024 3:22 PM EST Lynda NICOLAS-C LAB BLOOD ORDERABLES Performing Organization Address City/[facility]/[place] [address], [place] [address] * (ABNORMAL) Lipase (04/06/2024 2:56 PM EST) Lipase 66(H) 13 - 60 U/L 04/06/2024 3:50 PM [facility] Blood (Plasma/Serum) 04/06/2024 2:56 PM EST 04/06/2024 3:22 PM EST Lynda NICOLAS-C LAB BLOOD ORDERABLES Performing Organization Address [facility] [place] [address], [place] [address] * (ABNORMAL) Comprehensive Metabolic Panel (04/06/2024 2:56 PM EST) Glucose 94 65 - 99 mg/dL 04/06/2024 3:50 PM [facility] Comment:Fasting: <100 mg/dL, Non-Fasting: <200 mg/dL (ADA 2005) Blood Urea Nitrogen (BUN) 24(H) 8 - 21 mg/dL 04/06/2024 3:50 PM [facility] Creatinine 0.5 0.4 - 1.1 mg/dL 04/06/2024 3:50 PM [facility] eGFR >90 >59 04/06/2024 3:50 PM [facility] Comment:CKD-EPI (2020) in mL /min/1.73 sq meters. Sodium 135(L) 136 - 145 mmol/L 04/06/2024 3:50 PM [facility] Potassium 4.4 3.4 - 5.3 mmol/L 04/06/2024 3:50 PM [facility] Chloride 100 98 - 107 mmol/L 04/06/2024 3:50 PM [facility] CO2 26 22 - 33 mmol/L 04/06/2024 3:50 PM [facility] Calcium 9.9 8.7 - 10.5 mg/dL 04/06/2024 3:50 PM [facility] Alkaline Phosphatase 212(H) 32 - 122 U/L 04/06/2024 3:50 PM [facility] Aspartate Aminotrans (AST) 23 10 - 50 U/L 04/06/2024 3:50 PM [facility] Alanine Aminotrans (ALT) 29 10 - 50 U/L 04/06/2024 3:50 PM [facility] Bilirubin, Total 0.2 0.2 - 1.0 mg/dL 04/06/2024 3:50 PM [facility] Protein, Total 8.2 6.3 - 8.3 g/dL 04/06/2024 3:50 PM [facility] Albumin 3.3(L) 3.5 - 5.0 g/dL 04/06/2024 3:50 PM [facility] BUN/Creatinine Ratio 48(H) 10.0 - 25.0 Ratio 04/06/2024 3:50 PM [facility] Globulin 4.9(H) 1.5 - 3.9 g/dL 04/06/2024 3:50 PM [facility] Albumin/Globulin Ratio 0.7(L) 1.0 - 3.0 Ratio 04/06/2024 3:50 PM [facility] Anion Gap 9 7 - 17 04/06/2024 3:50 PM [facility] Blood (Plasma/Serum) 04/06/2024 2:56 PM EST 04/06/2024 3:22 PM EST Lynda Small PA-C LAB BLOOD ORDERABLES [address] [address], [address] [address] * CT Scan External Result (04/04/2024 9:21 [...] Documents on File Type Date Recorded Patient Applications Administrator Expl anation Advance Directive-Scan 01/05/2024 Sarah Morgan [...] Healthcare Agent Relationship Communication Sarah Morgan Healthcare public service representative 1. Health Care Applications Administrator Care Teams Drink Box Mechanic Relationship Specialty Start Date End Date Jojo Seymour MD [address] [place] [address] PCP - General General Medicine 10/01/23
--- OUTSIDE RECORDS SUMMARY | 2024-06-27 13:50 | XMS_ITS | Encounter Summary ---
Author Organization [facility] Address [address] [place] [address] Care Team Providers Care Shuttle Hand Name Role Phone Jojo Seymour Primary Care Provider [phone] Encounter Details Date Type Department Care Team (Late Contact Info) Description 04/01/2024 Lab Requisition [facility] Site [address] [place] [address] [phone] Aga Infante MD [address] [place] [address] Acute respiratory failure, unspecified whether with hypoxia [...] Info) Description 07/06/2024 9:00 AM EDT Follow-Up [facility] 4th floor Cardiology Medicine [address] [place] [address] Clinical Education Consultant: Elisha Montez PA [address] [place] [phone] documented as of this encounter Procedures * Due to [place] [employer] law, this organization might not be sharing [...] in this encounter Results * Due to [place] [employer] law, this organization might not be sharing negative HIV tests. * (ABNORMAL) CBC Auto Differential (04/01/2024 5:45 AM EST) WBC 8.9 4.8 - 10.8 10*3/uL 04/01/2024 10:44 AM EST [facility] RBC 3.85(L) 4.20 - 5.40 10*6/uL 04/01/2024 10:44 AM EST [facility] Hemoglobin 9.9(L) 11.7 - 15.5 g/dL 04/01/2024 10:44 AM EST [facility] Hematocrit 30.3(L) 35.7 - 45.8 % 04/01/2024 10:44 AM EST [facility] MCV 78.7(L) 81.0 - 99.0 fL 04/01/2024 10:44 AM EST [facility] MCH 25.7(L) 26.0 - 34.0 pg 04/01/2024 10:44 AM EST [facility] MCHC 32.7 31.0 - 36.0 g/dL 04/01/2024 10:44 AM EST [facility] RDW 14.8 12.0 - 15.0 % 04/01/2024 10:44 AM EST [facility] RDW Standard Deviation 42.4 36.4 - 46.3 fL 04/01/2024 10:44 AM EST [facility] Platelets 396 140 - 440 10*3/uL 04/01/2024 10:44 AM EST [facility] MPV 9.3(L) 9.4 - 12.3 fL 04/01/2024 10:44 AM [facility] Neutrophil % 57.6 50.0 - 75.0 % 04/01/2024 10:44 AM [facility] Immature Grans % 0.2 0.0 - 0.9 % 04/01/2024 10:44 AM [facility] Lymphocyte % 34.5 20.0 - 44.0 % 04/01/2024 10:44 AM [facility] Monocyte % 5.6 0.0 - 14.0 % 04/01/2024 10:44 AM [facility] Eosinophil % 1.7 0.0 - 5.0 % 04/01/2024 10:44 AM [facility] Basophil % 0.4 0.0 - 2.0 % 04/01/2024 10:44 AM [facility] Neutrophil # 5.12 1.80 - 7.70 10*3/uL 04/01/2024 10:44 AM [facility] Immature Grans # <0.03 0.00 - 0.03 10*3/uL 04/01/2024 10:44 AM [facility] Lymphocyte # 3.10 1.00 - 4.75 10*3/uL 04/01/2024 10:44 AM EST [facility] Monocyte # 0.50 0.00 - 6.00 10*3/uL 04/01/2024 10:44 AM [facility] Eosinophil # 0.20 0.00 - 0.80 10*3/uL 04/01/2024 10:44 AM EST [facility] Basophil # <0.03 0.00 - 0.20 10*3/uL 04/01/2024 10:44 AM [facility] nRBC % 0.0 0 - 0 /100 WBCs 04/01/2024 10:44 AM EST [facility] nRBC # <0.01 0.00 - 0.13 10*3/uL 04/01/2024 10:44 AM EST [facility] Blood Structure of peripheral vein / Unknown 04/01/2024 5:45 AM EST 04/01/2024 9:20 AM EST us Aga Infante MD LAB BLOOD ORDERABLES Final Res ult [facility] [address] [place] [address] [place] [address], * (ABNORMAL) Basic Metabolic Panel (04/01/2024 5:45 AM EST) NA 136 136 - 145 mmol/L 04/01/2024 10:56 AM EST [facility] K 4.3 3.5 - 5.1 mmol/L 04/01/2024 10:56 AM EST [facility] Cl 98 98 - 109 mmol/L 04/01/2024 10:56 AM EST [facility] CO2 27 22 - 32 mmol/L 04/01/2024 10:56 AM EST [facility] BUN 25(H) 6 - 20 mg/dL 04/01/2024 10:56 AM EST [facility] Creatinine 0.57 0.50 - 1.12 mg/dL 04/01/2024 10:56 AM EST [facility] Glucose 144(H) 60 - 99 mg/dL 04/01/2024 10:56 AM EST [facility] Calcium 9.3 8.4 - 10.4 mg/dL 04/01/2024 10:56 AM EST [facility] Anion Gap 15 >=0 04/01/2024 10:56 AM EST [facility] eGFR >90 >=60 mL/min/1. 73m2 04/01/2024 10:56 AM EST [facility] Comment:The estimated glomer ular filtration rate [...] MD LAB BLOOD ORDERABLES Final Res ult [facility] [address] [facility] [address] [place] [address], documented in this encounter Visit Diagnoses Diagnosis Acute respiratory failure, unspecified whether with hypoxia or hypercapnia (HCC) No diagnosis documented in this encounter Care Teams Shuttle Hand Relationship Specialty Start Date End Date Jojo Seymour [address] [place] [phone] PCP - General Internal Medicine 03/03/23 documented as of this encounter
--- OUTSIDE RECORDS SUMMARY | 2024-06-27 13:50 | XMS_ITS | Clinical Summary ---
Author Organization [facility] Facility Address [address] [address] Care Team Providers Care Vacuum Bottle Assembler Name Role Phone Jojo Seymour MD Primary Care Provider [phone] Social History Tobacco Use Types Packs/Day Years [...] [place] Care Teams Vacuum Bottle Assembler Relationship Specialty Start Date End Date Jojo Seymour MD [address] [place] [address] [phone] PCP - General Internal Medicine 10/19/22
--- OUTSIDE RECORDS SUMMARY | 2024-06-27 13:50 | XMS_ITS | Referral Summary ---
Author Organization [facility] Address [address] [place] [address] Care Team Providers Care Dispatcher Service Or Work Name Role Phone Jojo Seymour Primary Care Provider Encounters Date Type Department Care Team Description 04/24/2024 Lab Requisition [facility] Site [address] [place] [address] [phone] Mo Starkey PA Acute respiratory failure, unspecified whether with hypoxia or hypercapnia; No diagnosis 04/20/2024 Lab Requisition [facility] Lab [address] [place] [address] Natalia Oropeza MD Acute respiratory failure, unspecified whether with hypoxia or hypercapnia; No diagnosis 04/17/2024 Lab Requisition [facility] Lab [address] [place] [phone] Mo Starkey PA Acute respiratory failure, unspecified whether with hypoxia or hypercapnia; No diagnosis 04/11/2024 Lab Requisition [facility] Lab [address] [place] [phone] Juan M Conroy MD Acute respiratory failure, unspecified whether with hypoxia or hypercapnia; No diagnosis 04/10/2024 Lab Requisition [facility] Lab [address] [place] [phone] Mo Starkey PA Acute and chronic respiratory failure with hypoxia; No diagnosis 04/07/2024 Lab Requisition [facility] Lab [address] [place] [address] Natalia Oropeza MD Acute respiratory failure, unspecified whether with hypoxia or hypercapnia; No diagnosis 04/03/2024 Lab Requisition [facility] Lab [address] [place] [address] Aga Infante MD Acute respiratory failure, unspecified whether with hypoxia or hypercapnia; No diagnosis 04/01/2024 Lab Requisition [facility] Draw Site [address] [place] [address] [phone] Aga Infante MD Acute respiratory failure, [...] Follow-Up [facility] 4th floor Cardiology Medicine [address] [place] [phone] Machinist Mechanic: Elisha Montez PA [address] [place] [phone] Procedures * Due to [place] state law, this organization might not be [...] Last 3 Months Results * Due to [place] state law, this organization might not be sharing negative HIV tests. * (ABNORMAL) CBC Auto Differential (04/24/2024 9:56 AM EST) Only the most recent of7 resultswithin the time period is included. WBC 6.9 4.8 - 10.8 10*3/uL 04/24/2024 10:31 AM EST [facility] RBC 3.94(L) 4.20 - 5.40 10*6/uL 04/24/2024 10:31 AM [facility] Hemoglobin 9.8(L) 11.7 - 15.5 g/dL 04/24/2024 10:31 AM [facility] Hematocrit 30.5(L) 35.7 - 45.8 % 04/24/2024 10:31 AM [facility] MCV 77.4(L) 81.0 - 99.0 fL 04/24/2024 10:31 AM [facility] MCH 24.9(L) 26.0 - 34.0 pg 04/24/2024 10:31 AM [facility] MCHC 32.1 31.0 - 36.0 g/dL 04/24/2024 10:31 AM [facility] RDW 15.1(H) 12.0 - 15.0 % 04/24/2024 10:31 AM [facility] RDW Standard Deviation 42.6 36.4 - 46.3 fL 04/24/2024 10:31 AM [facility] Platelets 219 140 - 440 10*3/uL 04/24/2024 10:31 AM [facility] MPV 10.1 9.4 - 12.3 fL 04/24/2024 10:31 AM [facility] Neutrophil % 61.4 50.0 - 75.0 % 04/24/2024 10:31 AM [facility] Immature Grans % 0.3 0.0 - 0.9 % 04/24/2024 10:31 AM [facility] Lymphocyte % 29.7 20.0 - 44.0 % 04/24/2024 10:31 AM [facility] Monocyte % 6.6 0.0 - 14.0 % 04/24/2024 10:31 AM [facility] Eosinophil % 1.9 0.0 - 5.0 % 04/24/2024 10:31 AM [facility] Basophil % 0.1 0.0 - 2.0 % 04/24/2024 10:31 AM [facility] Neutrophil # 4.22 1.80 - 7.70 10*3/uL 04/24/2024 10:31 AM EST [facility] Immature Grans # <0.03 0.00 - 0.03 10*3/uL 04/24/2024 10:31 AM EST [facility] Lymphocyte # 2.00 1.00 - 4.75 10*3/uL 04/24/2024 10:31 AM EST [facility] Monocyte # 0.50 0.00 - 0.60 10*3/uL 04/24/2024 10:31 AM EST [facility] Eosinophil # 0.10 0.00 - 0.80 10*3/uL 04/24/2024 10:31 AM EST [facility] Basophil # <0.03 0.00 - 0.20 10*3/uL 04/24/2024 10:31 AM EST [facility] nRBC % 0.0 0 - 0 /100 WBCs 04/24/2024 10:31 AM EST [facility] nRBC # <0.01 0.00 - 0.13 10*3/uL 04/24/2024 10:31 AM EST [facility] Blood Structure of peripheral vein / Unknown Venipuncture / Unknown 04/24/2024 9:56 AM EST 04/24/2024 9:56 AM EST Mo [facility]IC[facility] LAB BLOOD ORDERABLES Final R esult Performing Organization Address City/State/[facility] Co de Phone Number [facility] [address] [place] [address], * (ABNORMAL) Lipase (04/24/2024 9:56 AM EST) Only the most recent of3 resultswithin the time period is included. Lipase 614(H) 13 - 60 U/L 04/24/2024 11:17 AM EST [facility] Comment:ALL DELTAS REVIEWED Blood Structure of peripheral vein / Unknown Venipuncture / Unknown 04/24/2024 9:56 AM EST 04/24/2024 9:56 AM EST [facility] [id number] [place] LAB BLOOD ORDERABLES Final R esult Performing Organization Address [facility] Co de Phone Number [facility] [address] [address], [place] [phone] * (ABNORMAL) Amylase (04/24/2024 9:56 AM EST) Amylase 337(H) 28 - 127 U/L 04/24/2024 10:45 AM EST [facility] Blood Structure of peripheral vein / Unknown Venipuncture / Unknown 04/24/2024 9:56 AM EST 04/24/2024 9:56 AM EST [employer] [place] LAB BLOOD ORDERABLES Final [facility] Performing Organization Address [facility] Co de Phone Number [facility] [address] [address], [place] [phone] * (ABNORMAL) Comprehensive Metabolic Panel (04/24/2024 9:56 AM EST) Only the most recent of5 resultswithin the time period is included. NA 135(L) 136 - 145 mmol/L 04/24/2024 10:45 AM EST [facility] K 4.2 3.5 - 5.1 mmol/L 04/24/2024 10:45 AM EST [facility] Cl 99 98 - 109 mmol/L 04/24/2024 10:45 AM EST [facility] CO2 25 22 - 32 mmol/L 04/24/2024 10:45 AM EST [facility] Anion Gap 15 >=0 04/24/2024 10:45 AM EST [facility] Glucose 106(H) 60 - 99 mg/dL 04/24/2024 10:45 AM EST [facility] Creatinine 0.59 0.50 - 1.12 mg/dL 04/24/2024 10:45 AM [facility] Calcium 9.7 8.4 - 10.4 mg/dL 04/24/2024 10:45 AM [facility] Total Protein 7.8 6.6 - 8.7 g/dL 04/24/2024 10:45 AM [facility] Albumin 3.4(L) 3.5 - 5.0 g/dL 04/24/2024 10:45 AM [facility] Bilirubin, Total 0.3 0.2 - 1.2 mg/dL 04/24/2024 10:45 AM [facility] Alkaline Phosphatase 188(H) 40 - 129 U/L 04/24/2024 10:45 AM [facility] AST 25 0 - 33 U/L 04/24/2024 10:45 AM [facility] ALT 25 <=33 U/L 04/24/2024 10:45 AM [facility] BUN 28(H) 6 - 20 mg/dL 04/24/2024 10:45 AM [facility] eGFR >90 >=60 mL/min/1. 73m2 04/24/2024 10:45 AM [facility] Comment:The estimated glomer ular [...] 2.1 - 4.2 g/dL 04/24/2024 10:45 AM [facility] A/G Ratio 0.8(L) 1.5 - 3.0 04/24/2024 10:45 AM [facility] Blood Structure of peripheral vein / Unknown Venipuncture / Unknown 04/24/2024 9:56 AM EST 04/24/2024 9:56 AM EST [facility] [employer] LAB BLOOD ORDERABLES Final R esult Performing Organization Address [facility]/ZIP Co de Phone Number [facility] [address] [address], [place] [phone] * Christian Top, Urine (04/11/2024 9:30 AM EST) Extra Tube Hold for add-ons. 04/11/2024 2:05 PM EST [facility] Comment:Auto resulted. Urine Urine specimen collection, clean catch / Unknown Non-Blood Collection / Unknown 04/11/2024 9:30 AM EST 04/11/2024 9:31 AM EST Juan M Conroy MD LAB URINE ORDERABLES Final Result Performing Organization Address [facility] Co de Phone Number [facility] [address] [address], [place] [phone] * (ABNORMAL) Microscopic Urinalysis Only (04/11/2024 9:30 AM EST) RBC, Urine None Seen None Seen, 0-2 /HPF 04/11/2024 11:08 AM EST [facility] WBC, Urine 0-2 None Seen, 0-2 /HPF 04/11/2024 11:08 AM EST [facility] Squamous Epithelial Cells, Urine 3-5 /HPF 04/11/2024 11:08 AM EST [facility] Calcium Oxalate Crystals, Urine Occasional /HPF 04/11/2024 11:08 AM EST [facility] Bacteria, Urine Occasional(A) None Seen /HPF 04/11/2024 11:08 AM EST [facility] Urine Urine specimen collection, clean catch / Unknown Non-Blood Collection / Unknown 04/11/2024 9:30 AM EST 04/11/2024 9:58 AM EST Juan M Conroy MD LAB URINE ORDERABLES Final Result [facility] [address] [facility] [address] [place] [address], [place] [phone] * (ABNORMAL) Urinalysis W/Reflex to Microscopic & Culture (04/11/2024 9:30 AM EST) Color, Urine Yellow Yellow 04/11/2024 9:58 AM EST [facility] Clarity, Urine Clear Clear 04/11/2024 9:58 AM EST [facility] Specific [place], Urine 1.020 1.005 - 1.030 04/11/2024 9:58 AM EST [facility] pH, Urine 7.5 5.0 - 8.0 04/11/2024 9:58 AM EST [facility] Protein, Urine 30(A) Negative mg/dL 04/11/2024 9:58 AM EST [facility] Glucose, Urine Negative Negative mg/dL 04/11/2024 9:58 AM EST [facility] Ketones, Urine Negative Negative mg/dL 04/11/2024 9:58 AM EST [facility] Bilirubin, Urine Negative Negative 04/11/2024 9:58 AM EST [facility] Blood, Urine Negative Negative 04/11/2024 9:58 AM EST [facility] Nitrite, Urine Negative Negative 04/11/2024 9:58 AM EST [facility] Urobilinogen, Urine 0.2 0.2 - 1.0 E.U./dL 04/11/2024 9:58 AM EST [facility] Leukocyte Esterase, Urine Trace(A) Negative 04/11/2024 9:58 AM EST [facility] Urine Urine specimen collection, clean catch / Unknown Non-Blood Collection / Unknown 04/11/2024 9:30 AM EST 04/11/2024 9:31 AM EST [facility] 04/11/2024 9:58 AM EST Some urinalysis results will not meet the criteria for reflex urine culture although certain urine values may be abnormal. ??Additional testing can be ordered by the provider if clinically warranted. us Juan M Conroy MD LAB URINE ORDERABLES Final Result Performing Organization Address [facility] de Phone Number [facility] [address] [address], * N-terminal ProBrain Natriuretic Peptide - [facility] & MEM/AUDREYV/[place] Only (04/11/2024 9:30 AM EST) Pro-B-Type Natriuretic Peptide 102 <=450 pg/mL 04/11/2024 10:15 AM EST [facility] Comment: RULE IN CHF >/= [...] BLOOD ORDERABLES Final Result Performing Organization Address [facility] de Phone Number [facility] [address] [address], [place] [phone] * TSH (04/11/2024 9:30 AM EST) TSH 3.590 0.270 - 4.200 uIU/mL 04/11/2024 10:21 AM EST [facility] Comment: Females: 1st trimester ? 0.150-4.000 ??IU/mL 2nd trimester ?? 0.310-4.170 ?IU/mL 3rd trimester ?0.380-4.150 ?IU/mL Blood Structure of peripheral vein / Unknown Venipuncture / Unknown 04/11/2024 9:30 AM EST 04/11/2024 9:31 AM EST Juan M Conroy MD LAB BLOOD ORDERABLES Final Result Performing Organization Address [facility] de Phone Number [facility] [address] [address], * T4, Free (04/11/2024 9:30 AM EST) Free T4 1.12 0.80 - 1.80 ng/dL 04/11/2024 10:21 AM EST [facility] Comment: Females: (ng/dL) First Trimester [...] BLOOD ORDERABLES Final Result Performing Organization Address City/[facility]/ZIP Co de Phone Number [facility] [address] [address], [place] [phone] * (ABNORMAL) Phosphorus (04/11/2024 9:30 AM EST) Phosphorus 5.9(H) 2.5 - 4.5 mg/dL 04/11/2024 10:21 AM EST [facility] Blood Structure of peripheral vein / Unknown Venipuncture / Unknown 04/11/2024 9:30 AM EST 04/11/2024 9:31 AM EST us Juan M Conroy MD LAB BLOOD ORDERABLES Final Result Performing Organization Address City/[facility]/ZIP Co de Phone Number [facility] [address] [address], [place] [phone] * Magnesium (04/11/2024 9:30 AM EST) MG 2.0 1.5 - 2.5 mg/dL 04/11/2024 10:21 AM EST [facility] Blood Structure of peripheral vein / Unknown Venipuncture / Unknown 04/11/2024 9:30 AM EST 04/11/2024 9:31 AM EST us Juan M Conroy MD LAB BLOOD ORDERABLES Final Result Performing Organization Address [facility] Co de Phone Number [facility] [address] [address], [place] [phone] * Hemoglobin A1c (04/11/2024 9:30 AM EST) [facility] Hemoglobin A1c 5.2 4.0 - 5.7 % 04/11/2024 10:30 AM EST [facility] Estimated Average Glucose 103 mg/dL 04/11/2024 10:30 AM EST [facility] Blood Structure of peripheral vein / Unknown Venipuncture / Unknown 04/11/2024 9:30 AM EST 04/11/2024 9:31 AM EST us Juan M Conroy MD LAB BLOOD ORDERABLES Final Result Performing Organization Address City/[facility]/ZIP Co de Phone Number [facility] [address] [address], [place] [phone] * Vitamin B12 (04/11/2024 9:30 AM EST) Pathologist [facility] Vitamin B12 713 232 - 1,245 pg/mL 04/11/2024 10:29 AM EST [facility] Blood Structure of peripheral vein / Unknown Venipuncture / Unknown 04/11/2024 9:30 AM EST 04/11/2024 9:31 AM EST us Juan M Conroy MD LAB BLOOD ORDERABLES Final Result Performing Organization Address [facility] Co de Phone Number [facility] [address] [address], [place] [phone] * Ammonia (04/11/2024 9:30 AM EST) Ammonia 25 11 - 51 umol/L 04/11/2024 10:11 AM EST [facility] Blood Structure of peripheral vein / Unknown Venipuncture / Unknown 04/11/2024 9:30 AM EST 04/11/2024 9:31 AM EST Juan M Conroy MD LAB BLOOD ORDERABLES Final Result Performing Organization Address [facility] de Phone Number [facility] [address] [address], [place] [phone] * (ABNORMAL) Basic Metabolic Panel (04/11/2024 9:30 AM EST) Only the most recent of2 resultswithin the time period is included. NA 136 136 - 145 mmol/L 04/11/2024 10:21 AM EST [facility] K 4.6 3.5 - 5.1 mmol/L 04/11/2024 10:21 AM EST [facility] Cl 100 98 - 109 mmol/L 04/11/2024 10:21 AM EST [facility] CO2 25 22 - 32 mmol/L 04/11/2024 10:21 AM EST [facility] BUN 19 6 - 20 mg/dL 04/11/2024 10:21 AM EST [facility] Creatinine 0.61 0.50 - 1.12 mg/dL 04/11/2024 10:21 AM EST [facility] Glucose 101(H) 60 - 99 mg/dL 04/11/2024 10:21 AM EST [facility] Calcium 9.4 8.4 - 10.4 mg/dL 04/11/2024 10:21 AM EST [facility] Anion Gap 16 >=0 04/11/2024 10:21 AM EST [facility] eGFR >90 >=60 mL/min/1. 73m2 04/11/2024 10:21 AM EST [facility] Comment:The estimated glomer ular filtration [...] Conroy MD LAB BLOOD ORDERABLES Final Result [facility] [address] [facility] [address] [place] [address], from Last 3 Months Insurance [employer] Advance Directives * Presumed Full Code (Latest Code Status on File) Date Activated Date Inactivated Comments 12/19/2022 1:24 PM 12/20/2022 3:33 PM Care Teams Dispatcher Service Or Work Relationship Specialty Start Date End Date Jojo Seymour [address] [place] [phone] PCP - General Internal Medicine 03/03/23
--- OUTSIDE RECORDS SUMMARY | 2024-06-27 13:50 | XMS_ITS | Encounter Summary ---
Author Organization [facility] Address [address] [place] [address] Phone Care Team Providers Care Craft Center Director Name Role Phone Jojo Seymour MD Primary Care Provider [phone] Encounter Details Date Type Department Care Team (Late st Contact Info) Description 05/21/2020 Orders Only [facility] [address] [place] [phone] ProviderRandal MD [address] [place] [address] Social History Tobacco Use Types Packs/Day Years [...] on filedocumented in this encounter Care Teams Craft Center Director Relationship Specialty Start Date End Date Jojo Seymour MD [address] [place] [address] [phone] PCP - General Internal Medicine 10/19/22 documented as of this encounter
--- OUTSIDE RECORDS SUMMARY | 2024-06-27 13:50 | XMS_ITS | Encounter Summary ---
Author Organization [facility] Address [address] [place] [address] Care Team Providers Care Actuarial Mathematician Name Role Phone Jojo Seymour Primary Care Provider [phone] Encounter Details Date Type Department Care Team (Late Contact Info) Description 04/24/2024 Lab Requisition [facility] [address] [place] [address] [phone] Mo Starkey PA [address] [place] [phone] Acute respiratory failure, unspecified whether with hypoxia [...] Info) Description 07/06/2024 9:00 AM EDT Follow-Up [facility] 4th floor Cardiology Medicine [address] [place] [phone] Smoke Control Supervisor: Elisha Montez PA [address] [place] [address] documented as of this encounter Procedures * Due to [place] [employer] law, this organization might not be sharing [...] in this encounter Results * Due to [place] [employer] law, this organization might not be sharing negative HIV tests. * (ABNORMAL) CBC Auto Differential (04/24/2024 9:56 AM EST) WBC 6.9 4.8 - 10.8 10*3/uL 04/24/2024 10:31 AM EST [facility] RBC 3.94(L) 4.20 - 5.40 10*6/uL 04/24/2024 10:31 AM EST [facility] Hemoglobin 9.8(L) 11.7 - 15.5 g/dL 04/24/2024 10:31 AM EST [facility] Hematocrit 30.5(L) 35.7 - 45.8 % 04/24/2024 10:31 AM EST [facility] MCV 77.4(L) 81.0 - 99.0 fL 04/24/2024 10:31 AM EST [facility] MCH 24.9(L) 26.0 - 34.0 pg 04/24/2024 10:31 AM EST [facility] MCHC 32.1 31.0 - 36.0 g/dL 04/24/2024 10:31 AM [facility] RDW 15.1(H) 12.0 - 15.0 % 04/24/2024 10:31 AM [facility] RDW Standard Deviation 42.6 36.4 - 46.3 fL 04/24/2024 10:31 AM [facility] Platelets 219 140 - 440 10*3/uL 04/24/2024 10:31 AM [facility] MPV 10.1 9.4 - 12.3 fL 04/24/2024 10:31 AM [facility] Neutrophil % 61.4 50.0 - 75.0 % 04/24/2024 10:31 AM [facility] Immature Grans % 0.3 0.0 - 0.9 % 04/24/2024 10:31 AM [facility] Lymphocyte % 29.7 20.0 - 44.0 % 04/24/2024 10:31 AM [facility] Monocyte % 6.6 0.0 - 14.0 % 04/24/2024 10:31 AM [facility] Eosinophil % 1.9 0.0 - 5.0 % 04/24/2024 10:31 AM [facility] Basophil % 0.1 0.0 - 2.0 % 04/24/2024 10:31 AM [facility] Neutrophil # 4.22 1.80 - 7.70 10*3/uL 04/24/2024 10:31 AM [facility] Immature Grans # <0.03 0.00 - 0.03 10*3/uL 04/24/2024 10:31 AM [facility] Lymphocyte # 2.00 1.00 - 4.75 10*3/uL 04/24/2024 10:31 AM [facility] Monocyte # 0.50 0.00 - 0.60 10*3/uL 04/24/2024 10:31 AM [facility] Eosinophil # 0.10 0.00 - 0.80 10*3/uL 04/24/2024 10:31 AM EST [facility] Basophil # <0.03 0.00 - 0.20 10*3/uL 04/24/2024 10:31 AM EST [facility] nRBC % 0.0 0 - 0 /100 WBCs 04/24/2024 10:31 AM EST [facility] nRBC # <0.01 0.00 - 0.13 10*3/uL 04/24/2024 10:31 AM EST [facility] Blood Structure of peripheral vein / Unknown Venipuncture / Unknown 04/24/2024 9:56 AM EST 04/24/2024 9:56 AM EST [facility] BLOOD ORDERABLES Final R esult Performing Organization Address City/[facility]/ZIP Co de Phone Number [facility] [address] [address], [place] [phone] * (ABNORMAL) Lipase (04/24/2024 9:56 AM EST) Lipase 614(H) 13 - 60 U/L 04/24/2024 11:17 AM EST [facility] Comment:ALL DELTAS REVIEWED Blood Structure of peripheral vein / Unknown Venipuncture / Unknown 04/24/2024 9:56 AM EST 04/24/2024 9:56 AM EST [facility] BLOOD ORDERABLES Final R esult Performing Organization Address City/[facility]/ZIP Co de Phone Number [facility] [address] [address], [place] [phone] * (ABNORMAL) Amylase (04/24/2024 9:56 AM EST) Amylase 337(H) 28 - 127 U/L 04/24/2024 10:45 AM EST [facility] Blood Structure of peripheral vein / Unknown Venipuncture / Unknown 04/24/2024 9:56 AM EST 04/24/2024 9:56 AM EST us [facility] BLOOD ORDERABLES Final R esult [facility] [address] [facility] [address] [place] [address], [place] [phone] * (ABNORMAL) Comprehensive Metabolic Panel (04/24/2024 9:56 AM EST) NA 135(L) 136 - 145 mmol/L 04/24/2024 10:45 AM EST [facility] K 4.2 3.5 - 5.1 mmol/L 04/24/2024 10:45 AM EST [facility] Cl 99 98 - 109 mmol/L 04/24/2024 10:45 AM EST [facility] CO2 25 22 - 32 mmol/L 04/24/2024 10:45 AM EST [facility] Anion Gap 15 >=0 04/24/2024 10:45 AM EST [facility] Glucose 106(H) 60 - 99 mg/dL 04/24/2024 10:45 AM EST [facility] Creatinine 0.59 0.50 - 1.12 mg/dL 04/24/2024 10:45 AM EST [facility] Calcium 9.7 8.4 - 10.4 mg/dL 04/24/2024 10:45 AM EST [facility] Total Protein 7.8 6.6 - 8.7 g/dL 04/24/2024 10:45 AM EST [facility] Albumin 3.4(L) 3.5 - 5.0 g/dL 04/24/2024 10:45 AM EST [facility] Bilirubin, Total 0.3 0.2 - 1.2 mg/dL 04/24/2024 10:45 AM EST [facility] Alkaline Phosphatase 188(H) 40 - 129 U/L 04/24/2024 10:45 AM EST [facility] AST 25 0 - 33 U/L 04/24/2024 10:45 AM EST [facility] ALT 25 <=33 U/L 04/24/2024 10:45 AM EST [facility] BUN 28(H) 6 - 20 mg/dL 04/24/2024 10:45 AM EST [facility] eGFR >90 >=60 mL/min/1. 73m2 04/24/2024 10:45 AM EST [facility] Comment:The estimated glomer ular filtration [...] - 4.2 g/dL 04/24/2024 10:45 AM EST [facility] A/G Ratio 0.8(L) 1.5 - 3.0 04/24/2024 10:45 AM EST [facility] Blood Structure of peripheral vein / Unknown Venipuncture / Unknown 04/24/2024 9:56 AM EST 04/24/2024 9:56 AM EST [facility] BLOOD ORDERABLES Final R esult [facility] [address] [facility] [address] [place] [address], documented in this encounter Visit Diagnoses Diagnosis Acute respiratory failure, unspecified whether with hypoxia or hypercapnia (HCC) No diagnosis documented in this encounter Care Teams Actuarial Mathematician Relationship Specialty Start Date End Date Jojo Seymour [address] [place] [address] PCP - General Internal Medicine 03/03/23 documented as of this encounter
--- OUTSIDE RECORDS SUMMARY | 2024-06-27 13:50 | XMS_ITS | Encounter Summary ---
Author Organization [facility] Address [address] [place] [address] Care Team Providers Care Prospecting Observer Name Role Phone Jojo Seymour Primary Care Provider [phone] Encounter Details Date Type Department Care Team (Late st Contact Info) Description 03/21/2024 Lab Requisition [facility] [address] [place] [address] Mo Starkey PA [address] [place] [phone] Acute and chronic respiratory failure with hypoxia; [...] Info) Description 07/06/2024 9:00 AM EDT Follow-Up [facility] 4th floor Cardiology Medicine [address] [place] [address] Associate Dean Of Women: Elisha Montez PA [address] [place] [address] [phone] documented as of this encounter Procedures * Due to [place] [employer] law, this organization might not be sharing [...] in this encounter Results * Due to [place] [employer] law, this organization might not be sharing negative HIV tests. * (ABNORMAL) CBC Auto Differential (03/21/2024 9:33 AM EST) WBC 11.3(H) 4.8 - 10.8 10*3/uL 03/21/2024 9:42 AM EST [facility] RBC 3.63(L) 4.20 - 5.40 10*6/uL 03/21/2024 9:42 AM EST [facility] Hemoglobin 9.4(L) 11.7 - 15.5 g/dL 03/21/2024 9:42 AM EST [facility] Hematocrit 29.0(L) 35.7 - 45.8 % 03/21/2024 9:42 AM EST [facility] MCV 79.9(L) 81.0 - 99.0 fL 03/21/2024 9:42 AM EST [facility] MCH 25.9(L) 26.0 - 34.0 pg 03/21/2024 9:42 AM EST [facility] MCHC 32.4 31.0 - 36.0 g/dL 03/21/2024 9:42 AM EST [facility] RDW 14.7 12.0 - 15.0 % 03/21/2024 9:42 AM EST [facility] RDW Standard Deviation 43.5 36.4 - 46.3 fL 03/21/2024 9:42 AM EST [facility] Platelets 376 140 - 440 10*3/uL 03/21/2024 9:42 AM EST [facility] MPV 9.2(L) 9.4 - 12.3 fL 03/21/2024 9:42 AM EST [facility] Neutrophil % 65.8 50.0 - 75.0 % 03/21/2024 9:42 AM EST [facility] Immature Grans % 0.4 0.0 - 0.9 % 03/21/2024 9:42 AM [facility] Lymphocyte % 26.7 20.0 - 44.0 % 03/21/2024 9:42 AM [facility] Monocyte % 5.6 0.0 - 14.0 % 03/21/2024 9:42 AM [facility] Eosinophil % 1.2 0.0 - 5.0 % 03/21/2024 9:42 AM EST [facility] Basophil % 0.3 0.0 - 2.0 % 03/21/2024 9:42 AM [facility] Neutrophil # 7.41 1.80 - 7.70 10*3/uL 03/21/2024 9:42 AM [facility] Immature Grans # 0.04(H) 0.00 - 0.03 10*3/uL 03/21/2024 9:42 AM EST [facility] Lymphocyte # 3.00 1.00 - 4.75 10*3/uL 03/21/2024 9:42 AM EST [facility] Monocyte # 0.60 0.00 - 6.00 10*3/uL 03/21/2024 9:42 AM EST [facility] Eosinophil # 0.10 0.00 - 0.80 10*3/uL 03/21/2024 9:42 AM EST [facility] Basophil # <0.03 0.00 - 0.20 10*3/uL 03/21/2024 9:42 AM EST [facility] nRBC % 0.0 0 - 0 /100 WBCs 03/21/2024 9:42 AM EST [facility] nRBC # <0.01 0.00 - 0.13 10*3/uL 03/21/2024 9:42 AM EST [facility] Blood Structure of peripheral vein / Unknown Venipuncture / Unknown 03/21/2024 9:33 AM EST 03/21/2024 9:34 AM EST [facility] BLOOD ORDERABLES Final R esult Performing Organization Address [facility]/ZIP Co de Phone Number [facility] [address] [address], [place] [phone] * Hemoglobin A1c (03/21/2024 9:33 AM EST) Pathologist [facility] Hemoglobin A1c 4.7 4.0 - 5.7 % 03/21/2024 9:56 AM EST [facility] Estimated Average Glucose 88 mg/dL 03/21/2024 9:56 AM EST [facility] Blood Structure of peripheral vein / Unknown Venipuncture / Unknown 03/21/2024 9:33 AM EST 03/21/2024 9:34 AM EST [facility] BLOOD ORDERABLES Final [facility] Performing Organization Address [facility] Co de Phone Number [facility] [address] [address], [place] [phone] * (ABNORMAL) Comprehensive Metabolic Panel (03/21/2024 9:33 AM EST) NA 135(L) 136 - 145 mmol/L 03/21/2024 9:56 AM EST [facility] K 3.9 3.5 - 5.1 mmol/L 03/21/2024 9:56 AM EST [facility] Cl 95(L) 98 - 109 mmol/L 03/21/2024 9:56 AM EST [facility] CO2 27 22 - 32 mmol/L 03/21/2024 9:56 AM [facility] Anion Gap 17 >=0 03/21/2024 9:56 AM [facility] Glucose 103(H) 60 - 99 mg/dL 03/21/2024 9:56 AM [facility] Creatinine 0.58 0.50 - 1.12 mg/dL 03/21/2024 9:56 AM [facility] Calcium 9.7 8.4 - 10.4 mg/dL 03/21/2024 9:56 AM [facility] Total Protein 8.5 6.6 - 8.7 g/dL 03/21/2024 9:56 AM [facility] Albumin 3.3(L) 3.5 - 5.0 g/dL 03/21/2024 9:56 AM [facility] Bilirubin, Total 0.3 0.2 - 1.2 mg/dL 03/21/2024 9:56 AM [facility] Alkaline Phosphatase 306(H) 40 - 129 U/L 03/21/2024 9:56 AM [facility] AST 41(H) 0 - 33 U/L 03/21/2024 9:56 AM [facility] ALT 46(H) <=33 U/L 03/21/2024 9:56 AM [facility] BUN 31(H) 6 - 20 mg/dL 03/21/2024 9:56 AM [facility] eGFR >90 >=60 mL/min/1. 73m2 03/21/2024 9:56 AM [facility] Comment:The estimated glomer ular [...] - 4.2 g/dL 03/21/2024 9:56 AM EST [facility] A/G Ratio 0.6(L) 1.5 - 3.0 03/21/2024 9:56 AM EST [facility] Blood Structure of peripheral vein / Unknown Venipuncture / Unknown 03/21/2024 9:33 AM EST 03/21/2024 9:34 AM EST us [facility] BLOOD ORDERABLES Final R esult Performing Organization Address City/State/[facility] Co de Phone Number [facility] [address] [place] [phone], documented in this encounter Visit Diagnoses Diagnosis Acute and chronic respiratory failure with hypoxia (HCC) No diagnosis documented in this encounter Care Teams Prospecting Observer Relationship Specialty Start Date End Date Jojo Seymour [address] [place] [phone] PCP - General Internal Medicine 03/03/23 documented as of this encounter
--- OUTSIDE RECORDS SUMMARY | 2024-06-27 13:50 | XMS_ITS | Encounter Summary ---
Author Organization [facility] Address [address] [place] [address] Care Team Providers Care Index Editor Name Role Phone Jojo Seymour Primary Care Provider [phone] Encounter Details Date Type Department Care Team (Late Contact Info) Description 04/20/2024 Lab Requisition [facility] [address] [place] [address] Natalia Oropeza MD [address] [place] [phone] Acute respiratory failure, unspecified whether with hypoxia [...] Info) Description 07/06/2024 9:00 AM EDT Follow-Up [facility] 4th floor Cardiology Medicine [address] [place] [address] Control Room Supervisor: Elisha Montez PA [address] [place] [address] documented as of this encounter Procedures * Due to [place] [employer] law, this organization might not be sharing negative HIV tests. Procedure Name Priority Date/Time Associated Diagnosis Comments LIPASE Routine 04/20/2024 9:53 AM EST Acute respiratory failure, unspecified whether with hypoxia or hypercapnia (HCC) No diagnosis documented in this encounter Results * Due to [place] [employer] law, this organization might not be sharing negative HIV tests. * (ABNORMAL) Lipase (04/20/2024 9:53 AM EST) Lipase 108(H) 13 - 60 U/L 04/20/2024 11:07 AM EST [facility] Blood Structure of peripheral vein / Unknown Venipuncture / Unknown 04/20/2024 9:53 AM EST 04/20/2024 9:53 AM EST us Natalia Oropeza MD LAB BLOOD ORDERABLES Final Res ult Performing Organization Address City/State/[facility] Co de Phone Number [facility] [address] [place] [address] [place] [address], [place] [phone] documented in this encounter Visit Diagnoses Diagnosis Acute respiratory failure, unspecified whether with hypoxia or hypercapnia (HCC) No diagnosis documented in this encounter Care Teams Index Editor Relationship Specialty Start Date End Date Jojo Seymour [address] [place] [phone] PCP - General Internal Medicine 03/03/23 documented as of this encounter
--- OUTSIDE RECORDS SUMMARY | 2024-06-27 13:50 | XMS_ITS | Clinical Summary ---
Author Organization [facility] Address [address] [place] [address] Care Team Providers Care Continuing Education Specialist Name Role Phone Jojo Seymour Primary [...] Department Care Team Description 04/24/2024 Lab Requisition [facility] Draw Site [address] [place] [address] [phone] Mo Starkey PA Acute respiratory failure, unspecified whether with hypoxia or hypercapnia; No diagnosis 04/20/2024 Lab Requisition [facility] [address] [place] [phone] Natalia Oropeza MD Acute respiratory failure, unspecified whether with hypoxia or hypercapnia; No diagnosis 04/17/2024 Lab Requisition [facility] [address] [place] [phone] Mo Starkey PA Acute respiratory failure, unspecified whether with hypoxia or hypercapnia; No diagnosis 04/11/2024 Lab Requisition [facility] [address] [place] [phone] Juan M Conroy MD Acute respiratory failure, unspecified whether with hypoxia or hypercapnia; No diagnosis 04/10/2024 Lab Requisition [facility] [address] [place] [phone] Mo Starkey PA Acute and chronic respiratory failure with hypoxia; No diagnosis 04/07/2024 Lab Requisition [facility] [address] [place] [phone] Natalia Oropeza MD Acute respiratory failure, unspecified whether with hypoxia or hypercapnia; No diagnosis 04/03/2024 Lab Requisition [facility] [address] [place] [address] Aga Infante MD Acute respiratory failure, unspecified whether with hypoxia or hypercapnia; No diagnosis 04/01/2024 Lab Requisition [facility] Draw Site [address] [place] [address] [phone] Aga Infante MD Acute respiratory failure, [...] Info) Description 07/06/2024 9:00 AM EDT Follow-Up [facility] 4th floor Cardiology Medicine [address] [place] [phone] Roofing Tile Sorter: Elisha Montez PA [address] [place] [phone] Health Maintenance Due Date Last Done Comments [...] complete this topic Procedures * Due to [place] state law, [...] Last 3 Months Results * Due to [place] state law, this organization might not be sharing negative HIV tests. * (ABNORMAL) CBC Auto Differential (04/24/2024 9:56 AM EST) Only the most recent of7 resultswithin the time period is included. WBC 6.9 4.8 - 10.8 10*3/uL 04/24/2024 10:31 AM EST [facility] RBC 3.94(L) 4.20 - 5.40 10*6/uL 04/24/2024 10:31 AM EST [facility] Hemoglobin 9.8(L) 11.7 - 15.5 g/dL 04/24/2024 10:31 AM EST [facility] Hematocrit 30.5(L) 35.7 - 45.8 % 04/24/2024 10:31 AM EST [facility] MCV 77.4(L) 81.0 - 99.0 fL 04/24/2024 10:31 AM EST [facility] MCH 24.9(L) 26.0 - 34.0 pg 04/24/2024 10:31 AM EST [facility] MCHC 32.1 31.0 - 36.0 g/dL 04/24/2024 10:31 AM [facility] RDW 15.1(H) 12.0 - 15.0 % 04/24/2024 10:31 AM [facility] RDW Standard Deviation 42.6 36.4 - 46.3 fL 04/24/2024 10:31 AM [facility] Platelets 219 140 - 440 10*3/uL 04/24/2024 10:31 AM [facility] MPV 10.1 9.4 - 12.3 fL 04/24/2024 10:31 AM [facility] Neutrophil % 61.4 50.0 - 75.0 % 04/24/2024 10:31 AM [facility] Immature Grans % 0.3 0.0 - 0.9 % 04/24/2024 10:31 AM [facility] Lymphocyte % 29.7 20.0 - 44.0 % 04/24/2024 10:31 AM [facility] Monocyte % 6.6 0.0 - 14.0 % 04/24/2024 10:31 AM [facility] Eosinophil % 1.9 0.0 - 5.0 % 04/24/2024 10:31 AM [facility] Basophil % 0.1 0.0 - 2.0 % 04/24/2024 10:31 AM [facility] Neutrophil # 4.22 1.80 - 7.70 10*3/uL 04/24/2024 10:31 AM [facility] Immature Grans # <0.03 0.00 - 0.03 10*3/uL 04/24/2024 10:31 AM [facility] Lymphocyte # 2.00 1.00 - 4.75 10*3/uL 04/24/2024 10:31 AM [facility] Monocyte # 0.50 0.00 - 0.60 10*3/uL 04/24/2024 10:31 AM [facility] Eosinophil # 0.10 0.00 - 0.80 10*3/uL 04/24/2024 10:31 AM EST [facility] Basophil # <0.03 0.00 - 0.20 10*3/uL 04/24/2024 10:31 AM EST [facility] nRBC % 0.0 0 - 0 /100 WBCs 04/24/2024 10:31 AM EST [facility] nRBC # <0.01 0.00 - 0.13 10*3/uL 04/24/2024 10:31 AM EST [facility] Blood Structure of peripheral vein / Unknown Venipuncture / Unknown 04/24/2024 9:56 AM EST 04/24/2024 9:56 AM EST [facility] BLOOD ORDERABLES Final R esult Performing Organization Address City/[facility] Co de Phone Number [facility] [address] [address], [place] [phone] * (ABNORMAL) Lipase (04/24/2024 9:56 AM EST) Only the most recent of3 resultswithin the time period is included. Lipase 614(H) 13 - 60 U/L 04/24/2024 11:17 AM EST [facility] Comment:ALL DELTAS REVIEWED Blood Structure of peripheral vein / Unknown Venipuncture / Unknown 04/24/2024 9:56 AM EST 04/24/2024 9:56 AM EST [facility] BLOOD ORDERABLES Final R esult Performing Organization Address City/[facility]/ZIP Co de Phone Number [facility] [address] [address], [place] [phone] * (ABNORMAL) Amylase (04/24/2024 9:56 AM EST) Amylase 337(H) 28 - 127 U/L 04/24/2024 10:45 AM EST [facility] Blood Structure of peripheral vein / Unknown Venipuncture / Unknown 04/24/2024 9:56 AM EST 04/24/2024 9:56 AM EST us [facility] BLOOD ORDERABLES Final R esult [facility] [address] [place] [address], [place] [phone] * (ABNORMAL) Comprehensive Metabolic Panel (04/24/2024 9:56 AM EST) Only the most recent of5 resultswithin the time period is included. NA 135(L) 136 - 145 mmol/L 04/24/2024 10:45 AM EST [facility] K 4.2 3.5 - 5.1 mmol/L 04/24/2024 10:45 AM EST [facility] Cl 99 98 - 109 mmol/L 04/24/2024 10:45 AM EST [facility] CO2 25 22 - 32 mmol/L 04/24/2024 10:45 AM EST [facility] Anion Gap 15 >=0 04/24/2024 10:45 AM EST [facility] Glucose 106(H) 60 - 99 mg/dL 04/24/2024 10:45 AM EST [facility] Creatinine 0.59 0.50 - 1.12 mg/dL 04/24/2024 10:45 AM EST [facility] Calcium 9.7 8.4 - 10.4 mg/dL 04/24/2024 10:45 AM EST [facility] Total Protein 7.8 6.6 - 8.7 g/dL 04/24/2024 10:45 AM EST [facility] Albumin 3.4(L) 3.5 - 5.0 g/dL 04/24/2024 10:45 AM EST [facility] Bilirubin, Total 0.3 0.2 - 1.2 mg/dL 04/24/2024 10:45 AM EST [facility] Alkaline Phosphatase 188(H) 40 - 129 U/L 04/24/2024 10:45 AM EST [facility] AST 25 0 - 33 U/L 04/24/2024 10:45 AM EST [facility] ALT 25 <=33 U/L 04/24/2024 10:45 AM EST [facility] BUN 28(H) 6 - 20 mg/dL 04/24/2024 10:45 AM EST [facility] eGFR >90 >=60 mL/min/1. 73m2 04/24/2024 10:45 AM EST [facility] Comment:The estimated glomer ular filtration [...] - 4.2 g/dL 04/24/2024 10:45 AM EST [facility] A/G Ratio 0.8(L) 1.5 - 3.0 04/24/2024 10:45 AM EST [facility] Blood Structure of peripheral vein / Unknown Venipuncture / Unknown 04/24/2024 9:56 AM EST 04/24/2024 9:56 AM EST us [facility] BLOOD ORDERABLES Final R esult [facility] [address] [place] [address] [address] [place] [address], * Christian Top, Urine (04/11/2024 9:30 AM EST) Extra Tube Hold for add-ons. 04/11/2024 2:05 PM EST [facility] Comment:Auto resulted. Urine Urine specimen collection, clean catch / Unknown Non-Blood Collection / Unknown 04/11/2024 9:30 AM EST 04/11/2024 9:31 AM EST Juan M Conroy MD LAB URINE ORDERABLES Final Result Performing Organization Address [facility] de Phone Number [facility] [address] [address], [place] [phone] * (ABNORMAL) Microscopic Urinalysis Only (04/11/2024 9:30 AM EST) RBC, Urine None Seen None Seen, 0-2 /HPF 04/11/2024 11:08 AM EST [facility] WBC, Urine 0-2 None Seen, 0-2 /HPF 04/11/2024 11:08 AM EST [facility] Squamous Epithelial Cells, Urine 3-5 /HPF 04/11/2024 11:08 AM EST [facility] Calcium Oxalate Crystals, Urine Occasional /HPF 04/11/2024 11:08 AM EST [facility] Bacteria, Urine Occasional(A) None Seen /HPF 04/11/2024 11:08 AM EST [facility] Urine Urine specimen collection, clean catch / Unknown Non-Blood Collection / Unknown 04/11/2024 9:30 AM EST 04/11/2024 9:58 AM EST Juan M Conroy MD LAB URINE ORDERABLES Final Result Performing Organization Address [facility] de Phone Number [facility] [address] [address], [place] [phone] * (ABNORMAL) Urinalysis W/Reflex to Microscopic & Culture (04/11/2024 9:30 AM EST) Color, Urine Yellow Yellow 04/11/2024 9:58 AM EST [facility] Clarity, Urine Clear Clear 04/11/2024 9:58 AM EST [facility] Specific [place], Urine 1.020 1.005 - 1.030 04/11/2024 9:58 AM EST [facility] pH, Urine 7.5 5.0 - 8.0 04/11/2024 9:58 AM EST [facility] Protein, Urine 30(A) Negative mg/dL 04/11/2024 9:58 AM EST [facility] Glucose, Urine Negative Negative mg/dL 04/11/2024 9:58 AM EST [facility] Ketones, Urine Negative Negative mg/dL 04/11/2024 9:58 AM EST [facility] Bilirubin, Urine Negative Negative 04/11/2024 9:58 AM EST [facility] Blood, Urine Negative Negative 04/11/2024 9:58 AM EST [facility] Nitrite, Urine Negative Negative 04/11/2024 9:58 AM EST [facility] Urobilinogen, Urine 0.2 0.2 - 1.0 E.U./dL 04/11/2024 9:58 AM EST [facility] Leukocyte Esterase, Urine Trace(A) Negative 04/11/2024 9:58 AM EST [facility] Urine Urine specimen collection, clean catch / Unknown Non-Blood Collection / Unknown 04/11/2024 9:30 AM EST 04/11/2024 9:31 AM EST Narrative [facility] - 04/11/2024 9:58 AM EST Some urinalysis results will not meet the criteria for reflex urine culture although certain urine values may be abnormal. ??Additional testing can be ordered by the provider if clinically warranted. us Juan M Conroy MD LAB URINE ORDERABLES Final Result [facility] [address] [place] [address], * N-terminal ProBrain Natriuretic Peptide - [facility]/Darrell Only (04/11/2024 9:30 AM EST) Pro-B-Type Natriuretic Peptide 102 <=450 pg/mL 04/11/2024 10:15 AM EST [facility] Comment: RULE IN CHF >/= [...] BLOOD ORDERABLES Final Result Performing Organization Address [facility] de Phone Number [address] [address], [place] [phone] * TSH (04/11/2024 9:30 AM EST) [facility] TSH 3.590 0.270 - 4.200 uIU/mL 04/11/2024 10:21 AM EST [facility] Comment: Females: 1st trimester ? 0.150-4.000 ??IU/mL 2nd trimester ?? 0.310-4.170 ?IU/mL 3rd trimester ?0.380-4.150 ?IU/mL Blood Structure of peripheral vein / Unknown Venipuncture / Unknown 04/11/2024 9:30 AM EST 04/11/2024 9:31 AM EST Juan M Conroy MD LAB BLOOD ORDERABLES Final Result Performing Organization Address [facility] Co de Phone Number [facility] [address] [place] [address], [place] [phone] * T4, Free (04/11/2024 9:30 AM EST) [facility] Free T4 1.12 0.80 - 1.80 ng/dL 04/11/2024 10:21 AM EST [facility] Comment: Females: (ng/dL) First Trimester [...] BLOOD ORDERABLES Final Result Performing Organization Address [facility]/ZIP Co de Phone Number [facility] [address] [address], * (ABNORMAL) Phosphorus (04/11/2024 9:30 AM EST) Phosphorus 5.9(H) 2.5 - 4.5 mg/dL 04/11/2024 10:21 AM EST [facility] Blood Structure of peripheral vein / Unknown Venipuncture / Unknown 04/11/2024 9:30 AM EST 04/11/2024 9:31 AM EST Juan M Conroy MD LAB BLOOD ORDERABLES Final Result Performing Organization Address [facility] Co de Phone Number [facility] [address] [address], [place] [phone] * Magnesium (04/11/2024 9:30 AM EST) MG 2.0 1.5 - 2.5 mg/dL 04/11/2024 10:21 AM EST [facility] Blood Structure of peripheral vein / Unknown Venipuncture / Unknown 04/11/2024 9:30 AM EST 04/11/2024 9:31 AM EST us Juan M Conroy MD LAB BLOOD ORDERABLES Final Result Performing Organization Address [facility]/ZIP Co de Phone Number [facility] [address] [address], [place] [phone] * Hemoglobin A1c (04/11/2024 9:30 AM EST) Hemoglobin A1c 5.2 4.0 - 5.7 % 04/11/2024 10:30 AM EST [facility] Estimated Average Glucose 103 mg/dL 04/11/2024 10:30 AM EST [facility] Blood Structure of peripheral vein / Unknown Venipuncture / Unknown 04/11/2024 9:30 AM EST 04/11/2024 9:31 AM EST us Juan M Conroy MD LAB BLOOD ORDERABLES Final Result Performing Organization Address [facility]/ZIP Co de Phone Number [facility] [address] [address], [place] [phone] * Vitamin B12 (04/11/2024 9:30 AM EST) Pathologist [facility] Vitamin B12 713 232 - 1,245 pg/mL 04/11/2024 10:29 AM EST [facility] Blood Structure of peripheral vein / Unknown Venipuncture / Unknown 04/11/2024 9:30 AM EST 04/11/2024 9:31 AM EST us Juan M Conroy MD LAB BLOOD ORDERABLES Final Result Performing Organization Address City/[facility]/ZIP Co de Phone Number [facility] [address] [address], [place] [phone] * Ammonia (04/11/2024 9:30 AM EST) Ammonia 25 11 - 51 umol/L 04/11/2024 10:11 AM EST [facility] Blood Structure of peripheral vein / Unknown Venipuncture / Unknown 04/11/2024 9:30 AM EST 04/11/2024 9:31 AM EST Juan M Conroy MD LAB BLOOD ORDERABLES Final Result [facility] [address] [place] [address], [place] [phone] * (ABNORMAL) Basic Metabolic Panel (04/11/2024 9:30 AM EST) Only the most recent of2 resultswithin the time period is included. NA 136 136 - 145 mmol/L 04/11/2024 10:21 AM EST [facility] K 4.6 3.5 - 5.1 mmol/L 04/11/2024 10:21 AM EST [facility] Cl 100 98 - 109 mmol/L 04/11/2024 10:21 AM EST [facility] CO2 25 22 - 32 mmol/L 04/11/2024 10:21 AM EST [facility] BUN 19 6 - 20 mg/dL 04/11/2024 10:21 AM EST [facility] Creatinine 0.61 0.50 - 1.12 mg/dL 04/11/2024 10:21 AM EST [facility] Glucose 101(H) 60 - 99 mg/dL 04/11/2024 10:21 AM EST [facility] Calcium 9.4 8.4 - 10.4 mg/dL 04/11/2024 10:21 AM EST [facility] Anion Gap 16 >=0 04/11/2024 10:21 AM EST [facility] eGFR >90 >=60 mL/min/1. 73m2 04/11/2024 10:21 AM EST [facility] Comment:The estimated glomer ular filtration [...] BLOOD ORDERABLES Final Result Performing Organization Address City/State/[facility] Co de Phone Number [facility] [address] [address], [place] [phone] from Last 3 Months Insurance [place] [address] Advance Directives * Presumed Full Code (Latest Code Status on File) Date Activated Date Inactivated Comments 12/19/2022 1:24 PM 12/20/2022 3:33 PM Care Teams Continuing Education Specialist Relationship Specialty Start Date End Date Jojo Seymour [address] [place] [id number] PCP - General Internal Medicine 03/03/23
[2024-06-27 14:56] LABS: Reflex LDLD? Yes
[2024-06-28 12:04] LABS: LDL Cholesterol Direct 76 mg/dL (<100)
[2024-06-29 13:27] LABS: Immunoglobulin G Subclass 1 1104 mg/dL (382-929); Immunoglobulin G Subclass 2 467 mg/dL (241-700); Immunoglobulin G Subclass 3 112 mg/dL (22-178); Immunoglobulin G Subclass 4 33.1 mg/dL (4-86); Immunoglobulin G Total 1858 mg/dL (600-1640)
[2024-06-30 00:53] LABS: Zinc 77 mcg/dL (60-130)
[2024-06-30 04:47] LABS: Apolipoprotein A1 122 mg/dL (>=125); Apolipoprotein B 100 mg/dL (<90)
[2024-06-30 14:23] LABS: Alpha-Tocopherol 29.4 mg/L (5.7-19.9); Beta-Gamma Tocopherol 2.1 mg/L (<=4.3)
[2024-06-30 17:12] LABS: Vitamin A 103 mcg/dL (38-98)
[2024-07-01 01:44] LABS: Lipoprotein A 21 nmol/L (<75)
[2024-07-01 16:38] LABS: Vitamin B6 8.3 ng/mL (2.1-21.7)
[2024-07-02 00:53] LABS: Lipoprotein Asso Phospholip A2 130 (<124)
[2024-07-02 13:53] LABS: VITAMIN D (1,25 OH) D3 <8 pg/mL; Vit D (1,25-Dihydroxy) Total <8 pg/mL (18-72); Vitamin D (1,25 OH) D2 <8 pg/mL
[2024-07-04 00:29] LABS: Nicotinamide <20 ng/mL (see note); Vit B3 - Nicotinic Acid <20 ng/mL (see note)
[2024-07-04 02:33] LABS: Vitamin K1 1210 pg/mL (130-1500)
[2024-07-05 06:18] LABS: Vitamin B5 (Pantothenic Acid) 47 ng/mL (<275)
[2024-07-05 16:04] LABS: Vitamin B1 14 nmol/L (8-30)
== END 2024-06-27 11:17 | disposition home or self-care (01) ==
LOC: HO.LAB 11:16
PROVIDERS: PCP Internal Medicine; Visit Provider Internal Medicine Gastroenterology
DX: E78.5 Hyperlipidemia, unspecified (principal); E78.1 Pure hyperglyceridemia; Z87.19 Personal history of other diseases of the digestive system; K75.81 Nonalcoholic steatohepatitis (NASH); E83.52 Hypercalcemia
CPT/HCPCS: 36415; 80053; 80061; 82172; 82306; 82607; 82652; 82728; 82746; 82784; 83695; 83698; 83721; 83735; 84100; 84207; 84425; 84446; 84590; 84591; 84597; 84630; 85025

== ENCOUNTER 2024-08-17 08:23 | Outpatient (REF) | payer MEDICAID, SELFPAY ==
--- NOTE | ~2024-08-17 | XR_ITS ---
CLINICAL HISTORY: b l feet pain 6 view bilateral knee Comparison: None Findings: Bones intact. No dislocations. No significant loss of joint space, osteophytes, or erosions. No joint effusion. No radiopaque foreign body. IMPRESSION: 1. No acute findings. This document has been electronically signed by: Gene Feldman MD on 08/18/2024 08:47:19
--- OUTSIDE RECORDS SUMMARY | 2024-08-17 08:35 | XMS_ITS | Data Portability ---
Author Organization FIDENCIO Farias s, [address] Address [address] [place] [address] Care Team Providers Care Signals Officer Name Role Phone [facility] Primary Care Provider [phone] Assessment No assessment recorded. Plan of Treatment Reminders Order Date Submit Date Provider Last Modified By Organization Details Last Modified Time Details Appointments None recorded. Lab urinalysis, dipstick 2022 023 [email or web address] _[facility], [address] [place] [address], [address], 19:19:16 culture, urine [address] [facility], [address] [place] [address], [place], [address], 08:06:57 Referral None recorded. Procedures None recorded. Surgeries None recorded. Imaging None recorded. Medication Orders cephalexin 500 mg tablet 2022 023 [id number], [address] [place], [place], [id number], 3 19:19:19 naproxen 500 mg tablet 2022 023 [id number], [address] [place], [place], [id number], 19:19:20 Patient TargetsNo targets recorded. Patient Instructions Encounter Date Encounter Id Patient Instructions Last Modified By Organization Details Last Modified Time 10/15/2022 [id number] Urinary Tract Infection (UTI) in Women: Care [...] culture, routine FINAL REPORT Not Available [facility] ([facility]) [address] [facility], [place], [address], 10/18/2022 08:06:57 10/16/1910/18/2022 URINE CULTU RE, ROUTI NE result 1 COMMEN T Cultu re shows less than 10,00 0 colon y formi ng units of bacte filomena per shraddha liter of urine . This colon y count is not gener ally consi dered to be clini kehinde raymond longoria t. Not Available [facility] ([facility]) [address] [facility], [place], [address], 10/18/2022 08:06:57 10/16/19 23 10/15/2022 urina lysis , dipst ick Unknown Analyte Normal = light yellow Not Available [address] [place] [address], [place], [address], 10/15/2022 18:38:03 10/16/19 23 10/15/2022 urina lysis , dipst ick Unknown Analyte Normal = clear Not Available [address] [place] [address], [place], [address], 10/15/2022 18:38:03 10/16/19 23 10/15/2022 urina lysis , dipst ick Unknown Analyte Normal = negati ve Not Available [address] [place] [address], [place], [address], 10/15/2022 18:38:03 10/16/19 23 10/15/2022 urina lysis , dipst ick Unknown Analyte Normal = Negati ve Not Available [address] [place] [address], [place], [address], 10/15/2022 18:38:03 10/16/19 23 10/15/2022 urina lysis , dipst ick Unknown Analyte Normal = Negati ve Not Available [address] [place] [address], [place], [address], 10/15/2022 18:38:03 10/16/19 23 10/15/2022 urina lysis , dipst ick Unknown Analyte Normal = 1.010, 1.015, 1.020 Not Available lesly chester [address], [place], [address], 10/15/2022 18:38:03 10/16/19 23 10/15/2022 urina lysis , dipst ick Unknown Analyte Normal = Negati ve Not Available [facility] [address], [place], [address], 10/15/2022 18:38:03 10/16/19 23 10/15/2022 urina lysis , dipst ick Unknown Analyte Normal = 6.5, 7.0, 7.5, 8.0 Not Available [address] [address], [place], [place], [address], 10/15/2022 18:38:03 10/16/19 23 10/15/2022 urina lysis , dipst ick Unknown Analyte Normal = Negati ve Not Available [facility] [address], [place], [place], [address], 10/15/2022 18:38:03 10/16/19 23 10/15/2022 urina lysis , dipst ick Unknown Analyte Normal = 0.2, 1.0 Not Available [address] [place] [address], [place], [address], 10/15/2022 18:38:03 10/16/19 23 10/15/2022 urina lysis , dipst ick Unknown Analyte Normal = Negati ve Not Available [facility] [address], [place], [address], 10/15/2022 18:38:03 10/16/19 23 10/15/2022 urina lysis , dipst ick Unknown Analyte Normal = Negati ve Not Available [address] [place] [address], [place], [address], 10/15/2022 18:38:03 10/16/19 23 10/15/2022 urina lysis , dipst ick Unknown Analyte Light Yellow Not Available lesly chester [address], [place], [address], 10/15/2022 18:38:03 10/16/19 23 10/15/2022 urina lysis , dipst ick Unknown Analyte Clear Not Available [address], [place], [address], 10/15/2022 18:38:03 10/16/1910/15/2022 urina lysis , dipst ick Unknown Analyte Negati ve Not Available [address], [place], [address], 10/15/2022 18:38:03 10/16/19 23 10/15/2022 urina lysis , dipst ick Unknown Analyte Negati ve Not Available lesly [address], [place], [address], 10/15/2022 18:38:03 10/16/19 23 10/15/2022 urina lysis , dipst ick Unknown Analyte Negati ve Not Available lesly [address], [place], [address], 10/15/2022 18:38:03 10/16/19 23 10/15/2022 urina lysis , dipst ick Unknown Analyte 1.030 Not Available [address], [place], [address], 10/15/2022 18:38:03 10/16/19 23 10/15/2022 urina lysis , dipst ick Unknown Analyte Modera te Not Available [address], [place], [address], 10/15/2022 18:38:03 10/16/19 23 10/15/2022 urina lysis , dipst ick Unknown Analyte 5.5 Not Available leo [address], [place], [address], 10/15/2022 18:38:03 10/16/19 23 10/15/2022 urina lysis , dipst ick Unknown Analyte 300 mg/dL Not Available lesly chester [address], [place], [address], 10/15/2022 18:38:03 10/16/19 23 10/15/2022 urina lysis , dipst ick Unknown Analyte 0.2 E.U./d L Not Available lesly chester [address], [place], [address], 10/15/2022 18:38:03 10/16/19 23 10/15/2022 urina lysis , dipst ick Unknown Analyte Negati ve Not Available [address] che[address], [place], [address], 10/15/2022 18:38:03 10/16/19 23 10/15/2022 urina lysis , dipst ick Unknown Analyte Negati ve Not Available [address], [place], [address], 10/15/2022 18:38:03 Result Notes None recorded. Problems Name Problem SNOMED Code Status Onset Date Resolution Date Notes Provider Name and Address Organization Details Recorded Time Hypertensive disorder 38586907 Active Gudelia Shar joy, PA - [facility] 18:37:31 Hypercholest erolemia 64079231 Active Gudelia Shar null, PA - [facility] 18:37:42 Pancreatitis 39318710 Completed 10/15/2022 [facility] 18:37:56 Problem Notes None recorded. Procedures Surgical [...] height Body mass index (BMI) Body weight Respiratory rate Oxygen saturation Oxygen saturation in Arterial blood by Pulse oximetry Heart rate Body temperature Systolic blood pressure Diastolic blood pressure Provider Name and Address Organization Details Last Updated DateTime 157.48 cm 35.8 kg/m2 74531.1 g 18 /min 98 % 98 % 83 /min 97.8 [degF] 145 mm[Hg] 89 mm[Hg] Gudelia De Leon [facility] 18:40:50 Social History Question Answer Notes LastModified by Mendor Details LastModified Time Tobacco Smoking Status Never Smoker [facility] 10/15/2022 18:36:21 Have You Had Direct Contact, Or Contact During Intimacy, With Monkeypox Rash, Scabs, Or Body Fluids From A Person With Monkeypox? No Information not available 10/15/2022 Have You Recently Traveled Abroad? No Information not available 10/15/2022 Sex: Unknown Functional Status Question Answer Note LastModified by Mendor Details LastModified Time Do you use any illicit or recreational drugs? No Information not available 10/15/2022 What is your level of alcohol consumption? None Information not available 10/15/2022 Mental Status None recorded. Family History Relationship [...] SNOMED-CT Code Diagnosis ICD10 Code Diagnosis Note [id number] 20995[facility] [address] [address] 08/17/2018 09:49:03 08/17/2018 11:36:06 [id number] [place] [address] [address] 10/15/2022 18:12:59 10/15/2022 19:22:32 Acute low back pain 480411658 M54.50 Urinary tr act infectious disease 60713642 N39.0 Health Concerns Section Related Observation LastModified by Organization Detai ls LastModified Time None Recorded Concern Status LastModified by Organization Details LastModified Time None Recorded Advance Directives Directive None Recorded Payers Insurance Date Sequence Insurance Name Policy Number Policy Matute Covered Member ID Matute Member ID Guarantor Name 02/19/2023 1 [place] [facility] Windy Hood [id number] Windy Tai 10/15/2022 1 [facility] - HEALTH NET PLAN (MEDICAID HMO) [id number] Windy Hood [id number] Windy Tai Notes Date Note Type Note [...] Injections:none Previous PT:none Work Related:no Working:no Shelton CHRISTOPHER Monahan [address] [place], [address], [place] - [facility] 10/15/2022 19:19:48 OBGyn Episode No OBEpisode recorded.
== END 2024-08-17 08:24 | disposition home or self-care (01) ==
LOC: HO.XRAY 08:23
PROVIDERS: PCP Internal Medicine; Visit Provider Internal Medicine
DX: M25.561 Pain in right knee (principal); M25.562 Pain in left knee
CPT/HCPCS: 73562

== ENCOUNTER → 2024-08-17 08:27 | Outpatient (BNV) | payer MEDICAID, SELFPAY | PROVIDERS: PCP Internal Medicine; Visit Provider Specialist | DX: M17.0 Bilateral primary osteoarthritis of knee (principal) | CPT/HCPCS: 73562 ==

== ENCOUNTER 2024-09-19 07:54 | Outpatient (REF) | payer MEDICAID, SELFPAY ==
[2024-09-19 09:00] LABS: Hematocrit 41.4 % (37.0-47.0); Hemoglobin 14.2 g/dl (12.0-16.0); Mean Corpuscular HGB Conc 34.3 g/dl (31.0-35.0); Mean Corpuscular Hemoglobin 27.0 pg (27.0-33.0); Mean Corpuscular Volume 78.9 fL (80.0-98.0); NRBC Abs Auto 0.000 X10*3/uL (0.0-0.012); NRBC Pct Auto 0.0 /100WBC (0.0-0.2); Platelet Count 161 X10*3/uL (160-400); Red Blood Count 5.25 X10*6/uL (4.20-5.50); White Blood Count 8.5 X10*3/uL (4.8-10.8)
[2024-09-19 09:44] LABS: Alanine Aminotransferase 25 U/L (0-31); Albumin Level 4.4 g/dL (3.5-5.0); Alkaline Phosphatase 125 U/L (39-117); Aspartate Amino Transferase 24 U/L (5-31); Cholesterol 274 mg/dL (<200); HDL Cholesterol 35 mg/dL (>40); Lipase 45 U/L (8-78); Total Protein 8.3 g/dL (6.5-8.0); Triglycerides 845 mg/dL (<150)
[2024-09-25 01:19] LABS: Vitamin D 25-OH, D2 5 ng/mL; Vitamin D 25-OH, D3 24 ng/mL; Vitamin D 25-OH, Total 29 ng/mL (30-100)
== END 2024-09-19 07:55 | disposition home or self-care (01) ==
LOC: HO.LAB 07:54
PROVIDERS: PCP Internal Medicine; Visit Provider Nurse Practitioner Family
DX: I25.10 Atherosclerotic heart disease of native coronary artery without angina pectoris (principal); R74.01 Elevation of levels of liver transaminase levels; K21.9 Gastro-esophageal reflux disease without esophagitis; E55.9 Vitamin D deficiency, unspecified; R10.9 Unspecified abdominal pain
CPT/HCPCS: 36415; 80061; 80076; 82306; 83690; 85027; 99212

== ENCOUNTER 2024-09-19 07:54 | Outpatient (AMB) | payer MEDICAID, SELFPAY ==
--- OUTSIDE RECORDS SUMMARY | 2024-09-19 07:57 | XMS_ITS | Data Portability ---
Author Organization FIDENCIO Farias s, [address] Address [address] [place] [address] Care Team Providers Care Supply Coordinator Name Role Phone [facility] Primary Care Provider Assessment No assessment recorded. Plan of Treatment Reminders Order Date Submit Date Provider Last Modified By Organization Details Last Modified Time Details Appointments None recorded. Lab urinalysis, dipstick 2022 023 [facility], [address] [place] [address], [address], 3 19:19:16 culture, urine 2022 023 [facility], [address] [place] [address], [address], 3 08:06:57 Referral None recorded. Procedures None recorded. Surgeries None recorded. Imaging None recorded. Medication Orders cephalexin 500 mg tablet 2022 023 [facility]39, [address] [place], [place], [id number], 3 19:19:19 naproxen 500 mg tablet 2022 023 [id number], [address] [place], [place], [phone], 3 19:19:20 Patient TargetsNo targets recorded. Patient Instructions Encounter Date Encounter Id Patient Instructions Last Modified By Organization Details Last Modified Time 10/15/2022 [id number] Urinary Tract Infection (UTI) in Women: Care Instructions Not available 10/15/2022 19:19:12 getting back to normal after low back pain: care instructions [email or web address] Not available 10/15/2022 19:19:13 Drink lots of [...] a visit to the nearest Emergency Department. [email or web address] Not available 10/15/2022 19:19:03 Reason for Referral None Reported. Results Created Date Observation Date Name Description Value Unit Range Abnormal Flag Note LastModifiedBy Organization Detail LastModifiedTime 10/16/1910/18/2022 URINE CULTU LIANNE PURDY urine culture, routine FINAL REPORT Not Available [facility] ([facility]) [address] [facility], [place], [address], 10/18/2022 08:06:57 10/16/1910/18/2022 URINE CULTU RE, ROUTI NE result 1 COMMEN T Cultu re shows less than 10,00 0 colon y formi ng units of bacte filomena per shraddha liter of urine . This colon y count is not gener ally consi dered to be clini kehinde signi swati t. Not Available [facility] ([facility]) [address] [facility], [place], [address], 10/18/2022 08:06:57 10/16/1910/15/2022 urina lysis , dipst ick Unknown Analyte Normal = light yellow Not Available [address] [place] [address], [place], [address], 10/15/2022 18:38:03 10/16/19 23 10/15/2022 urina lysis , dipst ick Unknown Analyte Normal = clear Not Available [address] [place] [address], [place], [address], 10/15/2022 18:38:03 10/16/19 23 10/15/2022 urina lysis , dipst ick Unknown Analyte Normal = negati ve Not Available [address] [place] [address], [place], [address], 10/15/2022 18:38:03 10/16/19 23 10/15/2022 urina lysis , dipst ick Unknown Analyte Normal = Negati ve Not Available [address] [place] [address], [place], [address], 10/15/2022 18:38:03 10/16/19 23 10/15/2022 urina lysis , dipst ick Unknown Analyte Normal = Negati ve Not Available [address] [place] [address], [place], [address], 10/15/2022 18:38:03 10/16/19 23 10/15/2022 urina lysis , dipst ick Unknown Analyte Normal = 1.010, 1.015, 1.020 Not Available [address] [place] [address], [place], [address], 10/15/2022 18:38:03 10/16/19 23 10/15/2022 urina lysis , dipst ick Unknown Analyte Normal = Negati ve Not Available [address] [place] [address], [place], [address], 10/15/2022 18:38:03 10/16/19 23 10/15/2022 urina lysis , dipst ick Unknown Analyte Normal = 6.5, 7.0, 7.5, 8.0 Not Available [address] [place] [address], [place], [place], [address], 10/15/2022 18:38:03 10/16/19 23 10/15/2022 urina lysis , dipst ick Unknown Analyte Normal = Negati ve Not Available [address] [place] [address], [place], [place], [address], 10/15/2022 18:38:03 10/16/19 23 10/15/2022 urina lysis , dipst ick Unknown Analyte Normal = 0.2, 1.0 Not Available [address] [place] [address], [place], [address], 10/15/2022 18:38:03 10/16/19 23 10/15/2022 urina lysis , dipst ick Unknown Analyte Normal = Negati ve Not Available [address] [place] [address], [place], [address], 10/15/2022 18:38:03 10/16/19 23 10/15/2022 urina lysis , dipst ick Unknown Analyte Normal = Negati ve Not Available [address] [place] [address], [place], [address], 10/15/2022 18:38:03 10/16/19 23 10/15/2022 urina lysis , dipst ick Unknown Analyte Light Yellow Not Available lesly chester [address], [place], [address], 10/15/2022 18:38:03 10/16/19 23 10/15/2022 urina lysis , dipst ick Unknown Analyte Clear Not Available leo [address], [place], [address], 10/15/2022 18:38:03 10/16/19 23 10/15/2022 urina lysis , dipst ick Unknown Analyte Negati ve Not Available lesly chester [address], [place], [address], 10/15/2022 18:38:03 10/16/19 23 10/15/2022 urina lysis , dipst ick Unknown Analyte Negati ve Not Available lesly chester [address], [place], [address], 10/15/2022 18:38:03 10/16/19 23 10/15/2022 urina lysis , dipst ick Unknown Analyte Negati ve Not Available lesly chester [address], [place], [address], 10/15/2022 18:38:03 10/16/19 23 10/15/2022 urina lysis , dipst ick Unknown Analyte 1.030 Not Available leo [address], [place], [address], 10/15/2022 18:38:03 10/16/19 23 10/15/2022 urina lysis , dipst ick Unknown Analyte Modera te Not Available lesly chester [address], [place], [address], 10/15/2022 18:38:03 10/16/19 23 10/15/2022 urina lysis , dipst ick Unknown Analyte 5.5 Not Available [address], [place], [address], 10/15/2022 18:38:03 10/16/1910/15/2022 urina lysis , dipst ick Unknown Analyte 300 mg/dL Not Available lesly chester [address], [place], [address], 10/15/2022 18:38:03 10/16/19 23 10/15/2022 urina lysis , dipst ick Unknown Analyte 0.2 E.U./d L Not Available [address], [place], [address], 10/15/2022 18:38:03 10/16/19 23 10/15/2022 urina lysis , dipst ick Unknown Analyte Negati ve Not Available [address], [place], [address], 10/15/2022 18:38:03 10/16/19 23 10/15/2022 urina lysis , dipst ick Unknown Analyte Negati ve Not Available [address], [place], [address], 10/15/2022 18:38:03 Result Notes None recorded. Problems Name Problem SNOMED Code Status Onset Date Resolution Date Notes Provider Name and Address Organization Details Recorded Time Hypertensive disorder 00675432 Active Gudelia Shar null, PA - [facility] 18:37:31 Hypercholest erolemia 54523905 Active Gudelia Shar null, PA - [facility] 18:37:42 Pancreatitis 45418850 Completed 10/15/2022 Briana joy PA - [facility] 18:37:56 Problem Notes None recorded. Procedures Surgical History Date Name Laterality Status Provider Name and Address Organization Details Recorded Time hysterectomy completed Gudelia NICOLAS - [facility] 10/15/2022 18:36:42 Imaging Results None recorded. [...] Last Updated DateTime 157.48 cm 35.8 kg/m2 19789.1 g 18 /min 98 % 98 % 83 /min 97.8 [degF] 145 mm[Hg] 89 mm[Hg] Gudelia NICOLAS - [facility] 18:40:50 Social History Question Answer Notes LastModified by Simpleshow Details LastModified Time Tobacco Smoking Status Never Smoker Gudelia joy PA - [facility] 10/15/2022 18:36:21 Have You Had Direct Contact, Or Contact During Intimacy, With Monkeypox Rash, Scabs, Or Body Fluids From A Person With Monkeypox? No Information not available 10/15/2022 Have You Recently Traveled Abroad? No Information not available 10/15/2022 Sex: Unknown Functional Status Question Answer Note LastModified by Simpleshow Details LastModified Time Do you use any [...] SNOMED-CT Code Diagnosis ICD10 Code Diagnosis Note [id number] [facility] [address] [address] 08/17/2018 09:49:03 08/17/2018 11:36:06 [id number] [place] [address] [address] 10/15/2022 18:12:59 10/15/2022 19:22:32 Acute low back pain 107645002 M54.50 Urinary tr act infectious disease 85714994 N39.0 Health Concerns Section Related Observation LastModified by Organization Detai ls LastModified Time None Recorded Concern Status LastModified by Organization Details LastModified Time None Recorded Advance Directives Directive None Recorded Payers Insurance Date Sequence Insurance Name Policy Number Policy Matute Covered Member ID Matute Member ID Guarantor Name 02/19/2023 1 [place] [facility] Windy Hood [id number] Windy Myricks 10/15/2022 1 [facility] - HEALTH NET PLAN (MEDICAID HMO) [id number] Windy Hood [id number] Windy Tai Notes Date Note Type Note [...] Monahan NP [address] [place], [address], [place] - [facility] 10/15/2022 19:19:48 OBGyn Episode No OBEpisode recorded.
--- OUTSIDE RECORDS SUMMARY | 2024-09-19 07:58 | XMS_ITS | Clinical Summary ---
Author Organization Formerly [facility] Address [address] [place] [address] Care Team Providers Care Head Nurse Name Role Phone Jojo Seymour MD Primary Care Provider [phone] Allergies No known active allergies Medications ondansetron (ZOFRAN) 4 MG/2ML injectionIndicatio ns:Other acute pancreatitis without infection or necrosis,Acute thrombosis of splenic vein,Portal vein thrombosis,Severe sepsis with acute organ dysfunction (HCC) Infuse 2 mL (4 mg total) into a venous catheter 4 times daily (every 6 hours) as needed for nausea or vomiting. 11/06/19 24 Active insulin lispro (HumaLOG/ADMELOG) 100 units/mL injectionIndicatio ns:Necrotizing pancreatitis Inject 0.03-0.11 mL (3-11 Units total) under the skin every 4 (four) hours. 03/20/20 24 Active naloxone (NARCAN) 0.4 mg/mL injectionIndicatio ns:Necrotizing pancreatitis Infuse 1 mL (0.4 mg total) into a venous catheter every 5 (five) minutes as needed for opioid reversal or respiratory depression. 03/20/20 24 Active baclofen (LIORESAL) 10 MG tabletIndications: Necrotizing pancreatitis 1 tablet (10 mg total) by G Tube route 3 (three) times a day. 03/20/20 24 Active ferrous sulfate 300 mg/5 mL oral solutionIndication s:Necrotizing pancreatitis 5 mL (300 mg total) by G Tube route daily. Take 2 hours before or 4 hours after acid reducers. 03/20/20 Active ergocalciferol (VITAMIN D2,DRISDOL) dropsIndications:N ecrotizing pancreatitis 1 mL (8,000 Units total) by Feeding Tube route daily. 03/20/20 24 Active hydrOXYzine HCl (ATARAX) 10 MG/5ML syrupIndications:N ecrotizing pancreatitis 12.5 mL (25 mg total) by Feeding Tube route 4 times daily (every 6 hours) as needed for anxiety. 03/20/20 Active ipratropium (ATROVENT) 0.02 % nebulizer solutionIndication s:Necrotizing pancreatitis Take 2.5 mL (0.5 mg total) by nebulization 4 times daily (every 6 hours) as needed for shortness of breath. 03/20/20 Active lidocaine (LIDODERM) 5 % patchIndications:N ecrotizing pancreatitis Place 1 patch on the skin as needed for mild pain. Apply patch and leave on for 12 hours then remove. Patch may remain on skin for 12 hours per day. 03/20/20 24 Active methadone (DOLOPHINE) 10 mg/5 mL oral solutionIndication s:Necrotizing pancreatitis 2.5 mL (5 mg total) by J Tube route daily. Max Daily Amount: 5 mg 03/21/20 24 Active acetaminophen (TYLENOL) 500 MG tabletIndications: Necrotizing pancreatitis Take 2 tablets (1,000 mg total) by mouth 4 times daily (every 6 hours) as needed for mild pain. 03/20/20 24 Active PANTOprazole (PROTONIX) 40 MG EC tabletIndications: Necrotizing pancreatitis Take 1 tablet (40 mg total) by mouth every morning before breakfast. 03/20/20 24 Active metoCLOPRAMIDE (REGLAN) 10 mg/10 mL Solution oral solutionIndication s:Necrotizing pancreatitis Take 10 mL (10 mg total) by mouth nightly. Please give at 2200 03/20/20 24 Active metoCLOPRAMIDE (REGLAN) 10 mg/10 mL Solution oral solutionIndication s:Necrotizing pancreatitis 5 mL (5 mg total) by J Tube route 2 times a day. Please give at scheduled times: 0600 and 1400 03/21/20 Active ondansetron (ZOFRAN-ODT) 4 MG disintegrating tablet Take 1 tablet (4 mg total) by mouth 3 times daily (every 8 hours) as needed for nausea or vomiting. Place tablet on tongue to dissolve. 10 tablet 04/07/19 25 Active metoPROLOL TARTRATE (LOPRESSOR) 25 MG tablet [...] trach 12/10/23 for resp failure, intubated with [place] [facility] with no apparent issues at [facility] in ICU setting Difficult airway 12/10/2023 Difficult airway for intubation 12/10/2023 Overview (03/07/2024): DART: Recannulate vs intubate from above- both acceptable Severe malnutrition (HCC) Ac mehdi; wt loss >7.5% x 3month, severe muscle [...] Encounters Date Type Department Care Team Description 08/09/2024 Telephone [facility] [address] [place] [address] [place] Appointment from Last 3 Months Family History Medical [...] drink = 0.6 oz pur e alcohol) [facility] Utilities Answer Date Recorded In the past 12 months has th e [employer], gas, oil, or water company threatened to [...] place to sleep or slept in a chcf (including now)? No 11/08/2023 Comments No Sex and Gender Information Value Date Recorded Sex Assigned at Female 10/01/2023 1:30 AM EDT Legal Sex Female 7:35 PM EDT Gender Identity Female 10/01/2023 1:30 AM EDT Sexual Orientation Heterosexual (straight) 09/30 1:30 AM EDT Last Filed Vital Signs Vital Sign Reading Time Taken Comments Blood Pressure 116/83 05/29/2024 11:27 AM EDT Pulse 104 05/29/2024 11:27 AM EDT Temperature 36.1 C (97 F) 04/07/2024 2:16 AM EST Respiratory Rate 16 [...] (Ages 21-65) 1997 Mammogram 2016 Colonoscopy 2021 COVID-19 Vaccine (2023-2 5 season) 2023 04/18/2021, 08/21/2020, 07/24/2020 Influenza Vaccine 10/20/2024 12/15/2019, 02/10/2019 Pneumococcal Vaccine: Pediatric (0-5 Years) and At-Risk Patients (6 to 49 Years) Aged Out No longer eligible b ased on patient's age to complete this topic Medical Devices Implanted Type Area Aircraft Body Repairer Device Identifier Shelf Expiration Date Model / Serial / Lot [id number] Kit Peg 20fr Push Evv Enfit - [id number] Implanted:Qty: 1 on 01/19/2024 by Iglesia Bhagat MD at [facility] Tube N/A: Stomach [employer] [id number] 11/19/2024 [id number] / / [id number] Kit Peg [employer]-Ultra [employer]fit Polyurethane Silicone Jordan L36 - [id number] Implanted:Qty: 1 on 01/26/2024 by Kaiser Petersen MD at [facility] Tube [employer] [id number] / / [id number] Kit Jejunostomy 45cm 16fr Daysi Alejandro Radopq Feed Tube Internal - [id number] Implanted:Qty: 1 on 02/16/2024 by Andre ProceduralistMD at [facility] Tube N/A: Abdomen [employer] [id number] 07/13/2025 [id number] / / [id number] Explanted Type Area Aircraft Body Repairer Device Identifier Shelf Expiration Date Model / Serial / Lot [id number] Stent Pancreatic 20mm 10mm Axs Sterl Lf Disp Electrocautery - [id number] Implanted:Qty: 1 on 11/17/2023 by Gio Stewart MD at [facility] Explanted:Qty: 1 on 02/15/2024 by Robert Carrero MD at [facility] Stent N/A: Duodenum [employer] [id number] 04/21/2024 [id number] / / [id number] Stent Biliary Zimmon 10fr 4cm Taper Tip Polyethe .035in 2 - [id number] Implanted:Qty: 1 on 02/15/2024 by Robert Carrero MD at [facility] Explanted:Qty: 1 on 02/29/2024 by Brad Beasley MD at [facility] Stent N/A: Bile Duct [employer] [id number] 11/01/2026 [id number] / / [id number] Additional Health Concerns Infection Onset Date 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 Meropenem resistant Contact Precautions required with each encounter. Patients will remain on Contact isolation indefinitely with the exception of clinical review by Infection Prevention and Infectious Disease/Epidemiology. 11/29/2023 11/29/2023 [id number] [place] [address] HEALTH Member Subscriber Plan / Payer (Ef fective 2023-Present) Name:Windy Tai I Relation to Subscriber:Self Name:Windy Tai I Payer ID:Not on file Group ID:Not on file Type:Not on file Address: [place] [id number] [place] [address] [facility] Advance Directives Documents on File Type Date Recorded Patient [employer] Presser Expl anation Advance Directive-Scan 01/05/2024 Sarah Morgan [...] Healthcare Agent Relationship Communication [facility] home office representative 1. Health Care [employer] Care Teams Head Nurse Relationship Specialty Start Date End Date Jojo Seymour MD [address] [place] [id number] PCP - General General Medicine 10/01/23
--- OUTSIDE RECORDS SUMMARY | 2024-09-19 07:58 | XMS_ITS | Clinical Summary ---
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 Name Role Phone Jojo Seymour MD Primary Care Provider [phone] Allergies Active Allergy Reactions Criticality Noted Date Comments Pravastatin 10/15/2022 Other reaction(s): nausea, tired Medications Creon 90196-93995 units capsule TAKE 1 CAPSULE BY MOUTH FOUR TIMES DAILY WITH MEALS AND/OR SNACKS 05/01/19 23 Active melatonin 5 MG tabletIndication s:Primary insomnia 1 tab at bedtime 30 tablet 3 04/21/19 24 Active Blood Pressure kitIndications:P rimary hypertension To use daily 1 kit 05/02/19 25 Active pancrelipase, Qqm-Tgfy-Oquu, (Creon) 51703-38045 units capsuleIndicatio ns:Hypertriglyce ridemia,Other chronic pancreatitis (CMS/HCC) [...] 25 Active Blood Glucose Monitoring Suppl (FreeStyle Allyn Lite) w/Device kitIndications:H yperglycemia Use to test blood sugar 1 times daily 1 kit 05/02/19 25 Active baclofen (Lioresal) 10 MG tabletIndication s:Acute midline low back pain without sciatica Take 1 tablet (10 mg) by mouth 3 times daily. 90 tablet 3 06/02/19 25 Active metoprolol tartrate (Lopressor) 25 MG tabletIndication s:Primary hypertension Take 1 tablet (25 mg) by mouth 2 times daily. 60 tablet 11 06/02/19 25 Active acetaminophen (Tylenol) 500 MG tabletIndication s:Acute pain of both knees,Plantar fasciitis, bilateral Take 2 tablets (1,000 mg) by mouth every 6 (six) hours if needed for mild pain. 90 tablet 3 08/16/19 25 Active Ferrous Sulfate (iron) 325 (65 Fe) MG tabletIndication s:Other chronic pancreatitis (CMS/HCC),Microc ytic anemia TAKE ONE TABLET EVERY MORNING WITH BREAKFAST 90 tablet 3 08/26/19 25 Active cholecalciferol VITAMIN D (Vitamin D-3) 50 MCG (1999 UT) capsuleIndicatio ns:Acute midline low back pain without sciatica TAKE ONE CAPSULE EVERY DAY 90 capsule 3 08/26/19 25 Active pantoprazole (ProtoNix) 40 MG EC tabletIndication s:Other chronic pancreatitis (CMS/HCC),Microc ytic anemia TAKE ONE TABLET EVERY MORNING WITH BREAKFAST 90 tablet 3 08/26/19 25 Active Ascorbic Acid (vitamin C) 500 MG tabletIndication s:Other chronic pancreatitis (CMS/HCC) TAKE ONE TABLET EVERY DAY 90 tablet 3 08/26/19 25 Active Multiple Vitamins-Iron (Tab-A-Susan/Iron /Beta Carotene) tabletIndication s:Other chronic pancreatitis (CMS/HCC),Microc ytic anemia TAKE ONE TABLET EVERY DAY 90 tablet 3 08/26/19 25 Active metoclopramide (Reglan) 10 MG tabletIndication s:Microcytic anemia TAKE ONE TABLET TWICE DAILY 60 tablet 1 09/12/19 25 Active Diclofenac Sodium 1 % gelIndications:A cute pain of both knees APPLY TOPICALLY TO AFFECTED AREA(s) TWO GRAMS, USE THREE TIMES DAILY DIRECTED 100 g 09/13/19 25 Active ascorbic acid (Vitamin C) 500 MG tabletIndication s:Other chronic pancreatitis (CMS/HCC) Take 1 tablet (500 mg) by mouth Once per day. 30 tablet 3 06/02/19 25 025 Discontinued cholecalciferol (Vitamin D-3) 50 MCG (1999) capsuleIndicatio ns:Acute midline low back pain without sciatica Take 1 capsule (50 mcg) by mouth Once per day. 30 capsule 3 06/02/19 25 025 Discontinued FeroSul 325 (65 Fe) MG tabletIndication s:Other chronic pancreatitis (CMS/HCC),Microc ytic anemia Take 1 tablet (325 mg) by mouth with breakfast. 30 tablet 3 06/02/19 25 025 Discontinued metoclopramide (Reglan) 10 MG tabletIndication s:Microcytic anemia Take 1 tablet (10 mg) by mouth 2 times daily. 60 tablet 1 06/02/19 25 025 Discontinued Multiple Vitamins-Iron (Tab-A-Susan/Iron ) tabletIndication s:Other chronic pancreatitis (CMS/HCC),Microc ytic anemia Take 1 tablet by mouth Once per day. 30 tablet 3 06/02/19 25 025 Discontinued pantoprazole (ProtoNix) 40 MG EC tabletIndication s:Other chronic pancreatitis (CMS/HCC),Microc ytic anemia Take 1 tablet (40 mg) by mouth before breakfast. 30 tablet 3 06/02/19 25 025 Discontinued Diclofenac Sodium 1 % gelIndications:A cute pain of both knees To apply to the affected area 3 times a day 100 g 08/16/19 25 025 Discontinued Active Problems Problem Noted Date Diagnosed Date Microcytic anemia 06/01/2024 Primary hypertension 05/02/2024 Postinflammatory hyperpigmentation 03/11/2023 Assessment & Plan (03/11/2023 11:47 AM EST): Patient that presented visit with concerns of hyperpigmentation on abdomen will be referred to Dermatology. Hypertriglyceridemia 11/14/2020 Other chronic pancreatitis 11/14/2020 Encounters Date Type Department Care Team Description 09/11/2024 Refill [facility] [address] [place] [address] Jojo Seymour MD Acute pain of both knees 09/09/2024 Refill [facility] [address], [place] [phone] Jojo Seymour MD Microcytic anemia 08/25/2024 Refill [facility] [address] [place] [address] Jojo Seymour MD Other chronic pancreatitis (CMS/HCC); Microcytic anemia; Acute midline low back pain without sciatica 08/24/2024 Telephone [facility] [address] [place] [address] Jojo Seymour MD Results 08/18/2024 Results Follow-Up [facility] [address] [place] [address] Jojo Seymour MD XR Knee 3 Views Bilateral 08/15/2024 2:45 PM EDT Office Visit [facility] [address], [place] [phone] Jojo Seymour MD Acute pain of both knees (Primary Dx); Plantar fasciitis, bilateral; Other chronic pancreatitis (CMS/HCC); Hypertriglyceridemia ; Annual physical exam 08/15/2024 Travel 08/03/2024 Patient Outreach [facility] [address] [place] [address] Jojo Seymour MD Pre-visit Planning ([facility] screening completed on 05/02/24) 06/27/2024 Orders Only GENERIC EXTERNAL DATA DEPARTMENT Provider, Generic External Data from Last 3 Months Immunizations Immunization Administration Dates Next Due Hep B, adult 05/18/2017,02/25/2017 Influenza, IIV3, injectable 12/15/2019, 9 Moderna Covid-19 Vaccine 12+ 04/18/2021,08/22/19 21,07/24/2020 Family History Medical History Relation Name Comments Hyperlipidemia Father Hypertension Father Diabetes Mother Relation Name Status Comments Father Mother Social History Tobacco Use Types Packs/Day Years Used Date Smoking Tobacco: Never Smokeless Tobacco: Never Tobacco Cessation:Counseling Given: No Alcohol Use Standard Drinks/Week Comments Not Currently 0 (1 standard drink = 0.6 oz pur e alcohol) Depression Answer Date Recorded Patient Health Questionnaire-9 Score 9 08/15/2024 Patient Health Questionnaire-9 Score 9 08/15/2024 Last PHQ-9: Questionnaire Data Not on file 0 08/15/2024 Housing Stability Answer Date Recorded What is [...] Answer Date Recorded Patient Health Questionnaire-2 Score 2 08/15/2024 Internet Access Answer Date Recorded Internet Access [...] Sign Reading Time Taken Comments Blood Pressure 127/83 08/15/2024 2:42 PM EDT Pulse 97 08/15/2024 2:42 PM EDT Temperature 36.6 C (97.9 F) 08/15/2024 2:42 PM EDT Respiratory Rate 20 08/15/2024 2:42 PM EDT Oxygen Saturation 97% 08/15/2024 2:42 PM EDT Inhaled Oxygen Concentration - - Weight 67.6 kg (149 lb) 08/15/2024 2:42 PM EDT Height 163 cm (5' 4.17 ) 08/15/2024 2:42 PM EDT Body Mass Index 25.44 08/15/2024 2:42 PM EDT Plan of Treatment Health Maintenance Due Date Last Done Comments CT Colonography 1975 Colonoscopy 1975 Colorectal Cancer Screening 1975 FIT DNA/Cologuard 1976 FIT 1975 FOBT 1975 HIV Screening 1975 Sigmoidoscopy 1975 Disability Screening 1976 Family Planning (PISQ) 1991 Hepatitis C Screening 1994 DTaP/Tdap/Td Vaccines (1 - Tdap) 1995 Hepatitis B Vaccines (3 of 3 - 19+ 3-dose series) 08/26/2017 05/18/2017, 02/25/2017 Mammogram 11/29/2022 11/29/2020 COVID-19 Vaccine ( season) 2023 04/18/2021, 08/21/2020, 07/24/2020 Influenza Vaccine (Season Ended) 2024 12/15/2019, 12/15/2019, 02/10/2019, Additional history exists Pap Smear 02/05/2025 02/05/2022 Depression Monitoring 02/15/2025 08/15/2024, 025 Alcohol/Substance Use Screening 08/15/2025 08/15/2024 SDOH Screening 08/15/2025 08/15/2024 Tobacco Screening 08/15/2025 08/15/2024 Zoster Vaccines (1 of 2) 2026 Cervical Cancer Screening 02/05/2027 HPV/Cotest 02/05/2027 02/05/2022, 01/20, 02/05/2022 Lipid Panel 06/27/2029 06/27/2024, 04/0 10/2024, 06/04/2022, Additional history exists RSV Patients and [...] patient's age to complete this topic Meningococcal B Vaccine Aged Out No l onger eligible based on patient's age to complete this topic Meningococcal Vaccine Aged Out No chandana abiola eligible based on patient's age to complete this topic Pneumococcal Vaccine: Pediatrics (0 to 5 Years) and At-Risk Patients (6 to 49) Years Aged Out No longer eligible based on patient's age to complete this topic RSV under 20 months Aged Out No longe r eligible based on patient's age to complete this topic Rotavirus Vaccines Aged Out No longer eligible based on patient's age to complete this topic Procedures Procedure Name Priority Date/Time Associated Diagnosis Comments XR KNEE 3 VIEWS BILATERAL Routine 08/18/2024 8:47 AM EDT VITAMIN B1 Routine 06/27/2024 11:40 AM EDT VITAMIN B5 (PANTOTHENIC ACID) Routine 06/27/2024 11:40 AM EDT VITAMIN K1 Routine 06/27/2024 11:40 AM EDT VITAMIN B3 Routine 06/27/2024 11:40 AM EDT VITAMIN D 1,25 DIHYDROXY Routine 06/27/2024 11:40 AM EDT CARDIO IQ LP-PLA2 ACTIVITY Routine 06/27/2024 11:40 AM EDT LIPOPROTEIN (A) Routine 06/27/2024 11:40 AM EDT VITAMIN B6 Routine 06/27/2024 11:40 AM EDT VITAMIN A Routine 06/27/2024 11:40 AM EDT VITAMIN E (TOCOPHEROL) Routine 11:40 AM EDT APOLIPOPROTEIN A1 Routine 06/27/2024 11: 40 AM EDT APOLIPOPROTEIN B Routine 06/27/2024 11:4 0 AM EDT ZINC Routine 06/27/2024 11:40 AM EDT IMMUNOGLOBULIN G SUBCLASSES PANEL Routine 06/27/2024 11:40 AM EDT DIRECT LDL Routine 06/27/2024 11:40 AM EDT FERRITIN Routine 06/27/2024 11:40 AM EDT VITAMIN [...] Recently Relevant to Health Maintenance Results * XR Knee 3 Views Bilateral (08/18/2024 8:47 AM EDT) Anatomical Region Laterality Modality Lower Extremities, Knee Bilateral Radiogra phic Imaging 08/18/2024 8:47 AM EDT Narrative 08/18/2024 8:49 AM EDT [address] [address] XRay Report Signed Patient: Windy Tai I MR#: [id number] : 1975 Acct:[id number] Age/Sex: 49 / F ADM Date: 08/17/24 Loc: [facility] Attending Dr: Jojo Seymour MD Ordering Physician: Jojo Seymour MD Date of Service: 08/17/24 Procedure(s): XR Knee Ash 3V Accession Number(s): [id number] cc: Jojo Seymour MD CLINICAL HISTORY: b l feet pain 6 view bilateral knee Comparison: None Findings: Bones intact. No dislocations. No significant loss of joint space, osteophytes, or erosions. No joint effusion. No radiopaque foreign body. IMPRESSION: 1. No acute findings. This document has been electronically signed by: Gene Feldman MD on 08/18/2024 08:47:19 Dictated By: Gene Feldman MD Signed By: <Electronically signed by Gene Feldman MD in OV> 08/18/24 0848 DD/ 0847 TD/TT: 08/18/24 0847 Rental Manager: Procedure Note Donotuseinterpreter, Image - 08/18/[address] [address] XRay Report Signed Patient: Windy Tai IMR#: [id number] : 1975Acct:[id number] Age/Sex: 49 / FADM Date: 08/17/24 Loc: [facility] Attending Dr: Jojo Seymour MD Ordering Physician: Jojo Seymour MD Date of Service: 08/17/24 Procedure(s): XR Knee Ash 3V Accession Number(s): [id number] cc: Jojo Seymour MD CLINICAL HISTORY: b l feet pain 6 view bilateral knee Comparison: None Findings: Bones intact. No dislocations. No significant loss of joint space, osteophytes, or erosions. No joint effusion. No radiopaque foreign body. IMPRESSION: 1. No acute findings. This document has been electronically signed by: Gene Feldman MD on 08/18/2024 08:47:19 Dictated By: Gene Feldman MD Signed By: <Electronically signed by Gene Feldman MD in OV> 08/18/24847 DD/ 6 TD/TT: 08/18/24846 Rental Manager: us Jojo Seymour MD IMG XR PROCEDURES Edited Re sult - Final * (ABNORMAL) Cardio IQ?? Lp-PLA2 Activity (06/27/2024 11:40 AM EDT) Lp-PLA2 Activity 130(A) <124 [facility] Comment:Result Units: nmol/m in/mLRelative Risk: Optimal <=123 nmol/min/mL; High >123nmol/min/mL.This test was developed and its analytical performancecharacteristics have been determined by [employer]. It has not been cleared or approved by theFDA. This assay has been validated pursuant to the CLIAregulations and is used for clinical purposes.See Note 1Note 1This test was developed and its analytical performancecharacteristics have been determined by [employer]. It has not been cleared or approved by theFDA. This assay has been validated pursuant to the CLIAregulations and is used for clinical purposes.THIS TEST WAS PERFORMED AT:[place] [id number]. BANDAR KWOK MD 06/27/2024 11:4 0 AM EDT 06/27/2024 11:40 AM EDT us Generic External Data Provider LAB BLOOD ORDERAB LES Final Result [facility] [address] [place] [phone] * (ABNORMAL) Apolipoprotein A1 (06/27/2024 11:40 AM EDT) Apolipoprotein A1 122(A) >=125 mg/dL [facility] Comment:Reference Range: > o r = 125Risk Category: FemaleOptimal > or = 125High < 125Cardiovascular event risk category cut points(optimal, high) are based on the AMORIS study,Rick Nelson et al. J [employer] Med. 2004;255:188-205.THIS TEST WAS PERFORMED AT:[employer] [address] [address]LOURGQMCAITLNY GUERRERO MD,PHD 06/27/2024 11:4 0 AM EDT 06/27/2024 11:40 AM EDT Generic External Data Provider LAB BLOOD ORDERAB LES Final Result Performing Organization Address [facility] Number [facility] [address] [place] [address] [phone] * Vitamin B5 (Pantothenic Acid) (06/27/2024 11:40 AM EDT) Vitamin B5 (Pantothenic Acid) 47 <275 ng/mL [facility] Comment:This test was develo ped and its analyticalperformance characteristics have been determinedby [employer] [place], [place].It has not been cleared or approved by the FDA. Thisassay has been validated pursuant to the CLIAregulations and is used for clinical purposes.THIS TEST WAS PERFORMED AT:[employer] [id number] [place] [phone] GUERRERO MD,PHD 06/27/2024 11:4 0 AM EDT 06/27/2024 11:40 AM EDT Generic External Data Provider LAB BLOOD ORDERAB LES Final Result Performing Organization Address [facility] de Phone Number [facility] [address] [place] [phone] * Vitamin K1 (06/27/2024 11:40 AM EDT) Vitamin K1 1210 130 - 1500 pg/mL [facility] Comment:This test was develo ped and its analytical performancecharacteristics have been determined by [employer]. It hasnot been cleared or approved by the U.S. Food and DrugAdministration. This assay has been validated pursuantto the CLIA regulations and is used for clinicalpurposes.THIS TEST WAS PERFORMED AT:[employer] [id number] [place] [address]SWKPUITCAITLYN GUERRERO MD,PHD 06/27/2024 11:4 0 AM EDT 06/27/2024 11:40 AM EDT us Generic External Data Provider LAB BLOOD ORDERAB LES Final Result [facility] [address] [place] [phone] * (ABNORMAL) Apolipoprotein B (06/27/2024 11:40 AM EDT) Pathologist [facility] Apolipoprotein B 100(A) <90 mg/dL [facility] Comment:Reference Range: <90 Risk Category:Optimal <90Moderate 90-129High > or = 130A desirable treatment target may be <80 mg/dL or lowerdepending on the risk category of the patient includingpatients on lipid lowering therapies, patients withASCVD, diabetes with >1 risk factors, Stage 3 orgreater CKD with albuminuria, or heterozygous familialhypercholesterolemia. ApoB relative risk categorycut points are based AACE/KD and ACC/AHArecommendations.(Jerri SM, et al. 2019.doi:10.1016/j.jacc.2018.11.002;Bruce Y et al. 2020. doi:10.4158/FB-[id number]).THIS TEST WAS PERFORMED AT:[employer] [id number] [place] [address]TAHWZLMCAITLYN GUERRERO MD,PHD 06/27/2024 11:4 0 AM EDT 06/27/2024 11:40 AM EDT Generic External Data Provider LAB BLOOD ORDERAB LES Final Result Performing Organization Address [facility]/ZIP Co de Phone Number [facility] [address] [place] [phone] [phone] * Vitamin D, 25-Hydroxy, Total, Immunoassay (06/27/2024 11:40 AM EDT) [facility] Vitamin D 25-OH Total 33.6 >30 ng/mL [facility] Comment: Health Based Reference Values*< 20 ng/mL Lfapuzvhy09-32 ng/mL Insufficient> 30 ng/mL Sufficient*Kalyan AHN. N Engl J Med. 2007;357:266-280There is no well-established upper level of normal vitamin Dlevels. Some laboratories use 50 ng/mL as an upper limit ofnormal. However, toxicity is patient-dependent and may occurat any level. Careful correlation with the patient'spresentation is necessary and, if there is concern forvitamin D toxicity, treatment should be consideredirrespective of the serum level.Care must be taken in interpreting Vitamin D results fromdifferent laboratories and methodologies. Published datademonstrated that results from patients undergoinghemodialysis may show a negative bias when tested withvarious automated 25-OH vitamin D assays when compared toLC-MS/MS.When testing samples from patients whose predominant form ofVitamin D is Vitamin D2, such as patients receiving VitaminD2 supplementation, results that are subtherapeutic shouldbe confirmed with another method such as LC-MS/MS. 06/27/2024 11:4 0 AM EDT 06/27/2024 11:40 AM EDT Generic External Data Provider LAB BLOOD ORDERAB LES Final Result Performing Organization Address [facility]/ZIP Co de Phone Number [facility] [address] [place] [phone] * Vitamin B12 (Cobalamin) and Folate Panel, Serum (06/27/2024 11:40 AM EDT) Vitamin B12 527 200 - 900 pg/mL [facility] Comment:NORMAL 200-900 PG/ML INDETERMINATE 160-199 PG/ML DEFICIENT < 160 PG/ML Folate 9.5 > or = 4.0 ng/mL [facility] Comment:Reference Values:> o r = 4.0 ng/mL< 4.0 ng/mL suggests folate deficiency Methotrexate, aminopterin and folinic acid(leucovorin) are chemotherapeutic agents whose molecularstructures are similar to folate; therefore, the Architectfolate assay cannot be used for patients using these drugs. 06/27/2024 11:4 0 AM EDT 06/27/2024 11:40 AM EDT us Generic External Data Provider LAB BLOOD ORDERAB LES Final Result [facility] [address] [place] [phone] * (ABNORMAL) Lipid Panel with Reflex to Direct LDL (06/27/2024 11:40 AM EDT) Triglycerides 690(H) <150 mg/dL [facility] Comment:Desirable Triglyceri de: less than 150 mg/dLBorderline High Triglyceride 150-199 mg/dLHigh Triglyceride: 200-499 mg/dLVery High Triglyceride: greater than or equal to 5OO mg/dL Cholesterol 239(H) <200 mg/dL [facility] Comment:Desirable Cholestero l: less than 200 mg/dLBorderline High Cholesterol: 200-239 mg/dLHigh Cholesterol: greater than 239 mg/dL LDL Cholesterol Calculated TNP <100 mg/dL [facility] Comment:Unable to calculate the LDL. The formula of Friedwald,Duarte, and Marquis is only valid if the triglycerides areless than 400 mg/dl. HDL Cholesterol 30(L) >40 mg/dL [facility] Comment:Desirable HDL: great er than 40 mg/dL Note: This HDL assay may give artificially low results in patients with liver disease. 06/27/2024 11:4 0 AM EDT 06/27/2024 11:40 AM EDT us Generic External Data Provider LAB BLOOD ORDERAB LES Final Result [facility] [address] [place] [address] [phone] * (ABNORMAL) CBC auto differential (06/27/2024 11:40 AM EDT) White Blood Count 8.2 4.8 - 10.8 X10*3/uL [facility] Red Blood Count 5.23 4.20 - 5.50 X10*6/uL [facility] Hemoglobin 13.3 12.0 - 16.0 g/dl [facility] Hematocrit 39.2 37.0 - 47.0 % [facility] Mean Corpuscular Volume 75.0(L) 80.0 - 98.0 fL [facility] Mean Corpuscular Hemoglobin 25.4(L) 27.0 - 33.0 pg [facility] Mean Corpuscular HGB Conc 33.9 31.0 - 35.0 g/dl [facility] Red Cell Distribution Width 17.0(H) 11.0 - 16.0 % [facility] Platelet Count 205 160 - 400 X10*3/uL [facility] Mean Platelet Volume 9.5 9.4 - 12.3 fL [facility] Neutrophils Percent Auto 51.4 45 - 73 % [facility] Imm Gran Pct Auto 0.4 0.0 - 0.4 % [facility] Lymphocytes Percent Auto 41.8(H) 20 - 40 % [facility] Monocytes Percent Auto 4.2 2 - 11 % [facility] Eosinophils Percent Auto 1.8 0 - 4 % [facility] Basophils Percent Auto 0.4 0 - 2 % [facility] NRBC Pct Auto 0.0 0.0 - 0.2 /100WBC [facility] Neutrophils Absolute Auto 4.2 2.0 - 8.3 x10*3/uL [facility] Imm Gran Abs Auto 0.03 0.00 - 0.03 X10*3/uL [facility] Lymphocytes Absolute Auto 3.4 1.2 - 4.9 X10*3/uL [facility] Monocytes Absolute Auto 0.3 0.1 - 1.2 X10*3/uL [facility] Eosinophils Absolute Auto 0.2 0.0 - 0.4 X10*3/uL [facility] Basophils Absolute Auto 0.0 0.0 - 0.2 X10*3/uL [facility] NRBC Abs Auto 0.000 0.0 - 0.012 X10*3/uL [facility] 06/27/2024 11:4 0 AM EDT 06/27/2024 11:40 AM EDT us Generic External Data Provider LAB BLOOD ORDERAB LES Final Result Performing Organization Address [facility] Co de Phone Number [facility] [address] [place] [phone] * Zinc (06/27/2024 11:40 AM EDT) Zinc 77 60 - 130 mcg/dL [facility] Comment:This test was develo ped and its analytical performancecharacteristics have been determined by [employer] [place], [place]. It hasnot been cleared or approved by the U.S. Food and DrugAdministration. This assay has been validated pursuantto the CLIA regulations and is used for clinicalpurposes.THIS TEST WAS PERFORMED AT:[id number] [place] [address]SFLCGQFCAITLYN GUERRERO MD,PHD 06/27/2024 11:4 0 AM EDT 06/27/2024 11:40 AM EDT us Generic External Data Provider LAB BLOOD ORDERAB LES Final Result Performing Organization Address [facility]/ZIP Co de Phone Number [facility] [address] [place] [phone] * (ABNORMAL) Vitamin A (06/27/2024 11:40 AM EDT) Vitamin A (Retinol) 103(A) 38 - 98 mcg/dL [facility] Comment:Vitamin supplementat ion within 24 hours prior toblood draw may affect the accuracy of the results.This test was developed and its analytical performancecharacteristics have been determined by [employer]. It hasnot been cleared or approved by the U.S. Food and DrugAdministration. This assay has been validated pursuantto the CLIA regulations and is used for clinicalpurposes.THIS TEST WAS PERFORMED AT:[employer] [id number] [place] [address]ETNNTXUCAITLYN GUERRERO MD,PHD 06/27/2024 11:4 0 AM EDT 06/27/2024 11:40 AM EDT Generic External Data Provider LAB BLOOD ORDERAB LES Final Result [facility] [address] [place] [phone] * Lipoprotein (a) (06/27/2024 11:40 AM EDT) Pathologist [facility] Lipoprotein (a) 21 <75 nmol/L [facility] Comment:Risk Category [place] l < 75 nmol/L Moderate 75 - 125 nmol/L High > 125 nmol/LCardiovascular event risk category cut points(optimal, moderate, high) are based on Maria Fernanda SharifJACC 2017;69:692-711.THIS TEST WAS PERFORMED AT:[employer] [id number] [place] [id number] GUERRERO MD,PHD 06/27/2024 11:4 0 AM EDT 06/27/2024 11:40 AM EDT us Generic External Data Provider LAB BLOOD ORDERAB LES Final Result [facility] [address] [place] [phone] * Vitamin B3 (Niacin and Metabolite) (06/27/2024 11:40 AM EDT) Nicotinic Acid <20 see note ng/mL [facility] Comment:Due to the large kiara iability in the metabolism ofnicotinic acid, the dosing preparation used (immediate-release vs. extended release), and the mg doses usedthe serum concentrations may range from less than20 ng/mL to about 30,000 ng/mL.After oral administration of an immediate-releasetablet, peak plasma concentrations occur in 4 to 5hours. The plasma half-life of nicotinic acid is aboutone hour. In one study, fasting plasma concentrationswere reported to be less than 20 ng/mL. In anotherstudy, it was reported that the administration of asingle 1000 mg extended-release tablet resulted in meannicotinic acid concentrations of less than 50 ng/mL.This test was developed and its analyticalperformance characteristics have been determinedby [employer] [place].It has not been cleared or approved by the FDA. Thisassay has been validated pursuant to the CLIAregulations and is used for clinical purposes. Nicotinamide <20 see note ng/mL [facility] Comment:Nicotinamide is a me tabolite of nicotinic acid. Due tothe large variability in the metabolism of nicotinicacid, plasma concentrations of this metabolite arevariable. In one study, fasting plasma concentrationswere reported to be approximately 40 ng/mL. In anotherstudy it was reported that the administration of asingle 1000 mg of extended-release tablet of nicotinicacid resulted in a mean peak nicotinamide concentrationof 400 ng/mL between 5 and 10 hours post dose,decreasing to about 100 ng/mL by 16 hours post dose.This test was developed and its analyticalperformance characteristics have been determinedby [place].It has not been cleared or approved by the FDA. Thisassay has been validated pursuant to the CLIAregulations and is used for clinical purposes.THIS TEST WAS PERFORMED AT:[employer] [id number] [place] [address]FCZQBZGCAITLYN GUERRERO MD,PHD 06/27/2024 11:4 0 AM EDT 06/27/2024 11:40 AM EDT us Generic External Data Provider LAB BLOOD ORDERAB LES Final Result Performing Organization Address [facility] de Phone Number [facility] [address] [place] [phone] * (ABNORMAL) Immunoglobulin G Subclasses Panel (06/27/2024 11:40 AM EDT) Pathologist [facility] IgG Subclass 1 1104(A) 382 - 929 mg/dL [facility] IgG Subclass 2 467 241 - 700 mg/dL [facility] IgG Subclass 3 112 22 - 178 mg/dL [facility] IgG Subclass 4 33.1 4 - 86 mg/dL [facility] Immunoglobulin G, Serum 1858(A) 600 - 1640 mg/dL [facility] Comment:THIS TEST WAS PERFOR MED AT:[facility] [place] [id number] NIELSEN MD 06/27/2024 11:4 0 AM EDT 06/27/2024 11:40 AM EDT us Generic External Data Provider LAB BLOOD ORDERAB LES Final Result Performing Organization Address [facility] de Phone Number [facility] [address] [place] [phone] * (ABNORMAL) Vitamin D 1,25 dihydroxy (06/27/2024 11:40 AM EDT) Vit D (1,25-Dihydroxy) Total <8(A) 18 - 72 pg/mL [facility] VITAMIN D (1,25 [place]) D3 <8 pg/mL [facility] Vitamin D (1,25 OH) D2 <8 pg/mL [facility] Comment:Vitamin D3, 1,25(OH) 2 indicates both endogenousproduction and supplementation. Vitamin D2, 1,25(OH)2is an indicator of exogenous sources, such as diet orsupplementation. Interpretation and therapy are basedon measurement of Vitamin D,1,25(OH)2, Total.This test was developed and its analyticalperformance characteristics have been determinedby [employer] [place].It has not been cleared or approved by the FDA. Thisassay has been validated pursuant to the CLIAregulations and is used for clinical purposes.THIS TEST WAS PERFORMED AT:[employer] [id number] [place] [address]VOBBWISCAITLYN GUERRERO MD,PHD 06/27/2024 11:4 0 AM EDT 06/27/2024 11:40 AM EDT us Generic External Data Provider LAB BLOOD ORDERAB LES Final Result [facility] [address] [place] [phone] * (ABNORMAL) Vitamin E (Tocopherol) (06/27/2024 11:40 AM EDT) Vitamin E, Alpha-Tocopherol 29.4(A) 5.7 - 19.9 mg/L [facility] Comment:Levels of alpha-toco pherol <5 mg/L are consistentwith Vitamin E deficiency in adults. Vitamin E, Fmvd-Kvqiv-Gidvmkxflj 2.1 <=4.3 mg/L [facility] Comment:Vitamin supplementat ion within 24 hours prior toblood draw may affect the accuracy of the results.This test was developed and its analytical performancecharacteristics have been determined by [employer]. It hasnot been cleared or approved by the U.S. Food and DrugAdministration. This assay has been validated pursuantto the CLIA regulations and is used for clinicalpurposes.THIS TEST WAS PERFORMED AT:[employer] [id number] [place] [address]ARCFGLECAITLYN GUERRERO MD,PHD 06/27/2024 11:4 0 AM EDT 06/27/2024 11:40 AM EDT Generic External Data Provider LAB BLOOD ORDERAB LES Final Result Performing Organization Address [facility] Co de Phone Number [facility] [address] [place] [phone] * Vitamin B1 (06/27/2024 11:40 AM EDT) Vitamin B1 14 8 - 30 nmol/L [facility] Comment:Vitamin supplementat ion within 24 hours prior toblood draw may affect the accuracy of the results.This test was developed and its analytical performancecharacteristics have been determined by [employer]. It hasnot been cleared or approved by the U.S. Food and DrugAdministration. This assay has been validated pursuantto the CLIA regulations and is used for clinicalpurposes.THIS TEST WAS PERFORMED AT:[id number] [place] [address]DQUYQPBCAITLYN GUERRERO MD,PHD 06/27/2024 11:4 0 AM EDT 06/27/2024 11:40 AM EDT Generic External Data Provider LAB BLOOD ORDERAB LES Final Result Performing Organization Address [facility] Co de Phone Number [facility] [address] [place] [phone] * Vitamin B6, Plasma (06/27/2024 11:40 AM EDT) Vitamin B6 8.3 2.1 - 21.7 ng/mL [facility] Comment:Vitamin supplementat ion within 24 hours prior toblood draw may affect the accuracy of the results.This test was developed and its analytical performancecharacteristics have been determined by [employer]. It hasnot been cleared or approved by the U.S. Food and DrugAdministration. This assay has been validated pursuantto the CLIA regulations and is used for clinicalpurposes.THIS TEST WAS PERFORMED AT:[employer] [id number] [place] [address]RGQFWMRCAITLYN GUERRERO MD,PHD 06/27/2024 11:4 0 AM EDT 06/27/2024 11:40 AM EDT Generic External Data Provider LAB BLOOD ORDERAB LES Final Result Performing Organization Address [facility]/ZIP Co de Phone Number [facility] [address] [place] [phone] * Phosphate (As Phosphorus) (06/27/2024 11:40 AM EDT) Phosphorus 4.3 2.7 - 4.5 mg/dL [facility] 06/27/2024 11:4 0 AM EDT 06/27/2024 11:40 AM EDT Generic External Data Provider LAB BLOOD ORDERAB LES Final Result Performing Organization Address [facility] Co de Phone Number [facility] [address] [place] [phone] * Magnesium (06/27/2024 11:40 AM EDT) Magnesium 2.1 1.6 - 2.6 mg/dL [facility] 06/27/2024 11:4 0 AM EDT 06/27/2024 11:40 AM EDT Generic External Data Provider LAB BLOOD ORDERAB LES Final Result Performing Organization Address [facility] Co de Phone Number [facility] [address] [place] [phone] * Direct LDL (06/27/2024 11:40 AM EDT) [facility] LDL Direct 76 <100 mg/dL [facility] Comment:Greatly elevated Tri glycerides values (>1200 mg/dL)interfere with the dLDL assay.Desirable range <100 mg/dL for primary prevention;<70 mg/dL for patients with CHD or diabetic patientswith > or = 2 CHD risk factors.THIS TEST WAS PERFORMED AT:[facility] [place] [phone] NIELSEN MD 06/27/2024 11:4 0 AM EDT 06/27/2024 11:40 AM EDT Generic External Data Provider LAB BLOOD ORDERAB LES Final Result Performing Organization Address [facility] Co de Phone Number [facility] [address] [place] [phone] * (ABNORMAL) Ferritin (06/27/2024 11:40 AM EDT) [facility] Ferritin 1,509(H) 10 - 250 ng/mL [facility] 06/27/2024 11:4 0 AM EDT 06/27/2024 11:40 AM EDT [employer] External Data Provider LAB BLOOD ORDERAB LES Final Result Performing Organization Address [facility] de Phone Number [facility] [address] [place] [phone] * (ABNORMAL) Comprehensive Metabolic Panel (06/27/2024 11:40 AM EDT) [facility] Sodium 139 135 - 145 mmol/L [facility] Potassium 4.2 3.3 - 5.1 mmol/L [facility] Chloride 105 96 - 108 mmol/L [facility] Carbon Dioxide 26 22 - 29 mmol/L [facility] Anion Gap 12 12 - 20 [facility] Urea Nitrogen (BUN) 20(H) 9 - 16 mg/dL [facility] Creatinine, Serum 0.83 0.5 - 1.4 mg/dL [facility] Estimated Glomerular Filt Rate >60 [facility] Comment:Chronic Kidney Disea se: Estimated GFR < 60 mL/min/1.06l9Elqvtr Kidney Disease: Estimated GFR < 15 mL/min/1.73m2 Glucose 90 60 - 115 mg/dL [facility] Calcium 10.5(H) 8.4 - 10.2 mg/dL [facility] Bilirubin, Total 0.5 0.0 - 1.0 mg/dL [facility] Aspartate Amino Transferase 29 5 - 31 U/L [facility] Alanine Aminotransferase 34(H) 0 - 31 U/L [facility] Total Protein 8.8(H) 6.5 - 8.0 g/dL [facility] Albumin Level 4.3 3.5 - 5.0 g/dL [facility] Alkaline Phosphatase 126(H) 39 - 117 U/L [facility] 06/27/2024 11:4 0 AM EDT 06/27/2024 11:40 AM EDT us Generic External Data Provider LAB BLOOD ORDERAB LES Final Result [facility] [address] [place] [phone] * (ABNORMAL) HPV E6/E7 RFLX MEDINA 16 18/45 (02/05/2022 2:44 PM EST) HPV 16 RNA DETECTED(A) NOT DETECTED [facility] HPV 18/45 RNA NOT DETECTED NOT DETECTED [facility] Comment: Methodology: Market Researcher Mediated Amplification Cervical sources are required for HPV testing. If a vaginal source from a patient who has had a total hysterectomy with removal of cervix was submitted, please contact the testing laboratory for alternative testing options. THIS TEST WAS PERFORMED AT: [facility] [address] [place] [address],[place] [address] GUERO NIELSEN MD HPV mRNA E6/E7 rflx Detected(A) Not Detected [facility] Comment: Methodology: Market Researcher-Mediated Amplification This assay detects E6/E7 viral messenger RNA (mRNA) from 14 high-risk HPV types (16,18,31,33,35,39,45,51,52,56,58,59,66,68). Cervical sources are required for HPV testing. If a vaginal source from a patient who has had a total hysterectomy with removal of cervix was submitted, please contact the testing laboratory for alternative testing options. For additional information, please refer to http://education.WiTricity/faq/GAE833p1 (This link if provided for information/ educational purposes only.) THIS TEST WAS PERFORMED AT: [facility] [address] [place] [address],[place] [address] GUERO NIELSEN MD 02/05/2022 2:44 PM EST Rusty Rodriguez MD HISTORICAL/NON ORDERABLE LABS Fi nal Result [facility] * Pap Smear (02/05/2022 2:44 PM EST) 02/05/2022 2:44 PM EST 02/06/2022 9:50 AM EST Narrative [facility] - 03/03/2022 12:04 PM EST ----- ------- Name: Windy Tai I Age/Sex: 46/F : 1975 Unit#: [id number] Attend Dr: Rusty Rodriguez MD Re02/05/22 Status: DEP REF Location: .LAB Disch: ----- ------- SPEC : [id number] RECD: 02/06/22 STATUS: MALCOLM LEVY NUM: [id number] LOU: 02/05/22-[address] [facility] [address]: Rusty Rodriguez MD ENTERED: 02/06/22 SP TYPE: Pap Smr OTHR DR: Jojo Seymour MD ORDERED: Pap Smear, PAP path review Interpretation Satisfactory for evaluation. Negative for intraepithelial lesion or malignancy. Acute inflammation present. HPV mRNA E6/E7: DETECTED This assay detects E6/E7 viral messenger RNA (mRNA) from 14 high-risk HPV types (16, 18, 31, 33, 35, 39, 45, 51, 52, 56, 58, 59, 66, 68) HPV Type 16 RNA: DETECTED HPV Type 18/45 RNA: Not Detected HPV testing performed by [facility], [place], [place]. See reference laboratory portion of the EMR for entire report. Clinical Information LMP: 02/10 Previous PAP test: 2009, WNL Material Received ThinPrep-Cervical Copies To: Jojo Seymour MD [address] [place] [address] [phone] Rusty Rodriguez MD [address] [place], [place] [address]Z[address] [address] ----- ------- Signed (signature on file) Aroldo Danielle MD 03/03/22 0035 ----- ------- END OF REPORT [facility] External Provider LAB CYT OLOGY ORDERABLES Final Result [facility] [address] [place] [phone] * Mammography Report 1 (11/29/2020 10:00 [...] Most Recently Relevant to Health Maintenance Insurance [employer] C3 [facility] C3 Care Teams Rotary Operator Relationship Specialty Start Date End Date oJjo Seymour MD [address] [place] [address] PCP - General Internal Medicine 12/03/20 Julio [facility] 04/25/24
--- OUTSIDE RECORDS SUMMARY | 2024-09-19 07:58 | XMS_ITS | Encounter Summary ---
Author Organization [facility] Address [address] [place] [address] Phone Care Team Providers Care Director Diversity Name Role Phone Jojo Seymour MD Primary Care Provider [phone] Encounter Details Date Type Department Care Team ([facility] st Contact Info) Description 05/21/2020 Orders Only [facility] [address] [place] [phone] ProviderRandal MD Social History Tobacco Use Types Packs/Day Years [...] on filedocumented in this encounter Care Teams Director Diversity Relationship Specialty Start Date End Date Jojo Seymour MD [address] [place] [phone] PCP - General Internal Medicine 10/19/22 documented as of this encounter
--- OUTSIDE RECORDS SUMMARY | 2024-09-19 07:58 | XMS_ITS | Encounter Summary ---
Author Organization [facility] Address [address] [place] [address] Care Team Providers Care Oil Tank Car Cleaner Name Role Phone Jojo Seymour Primary Care Provider [phone] Encounter Details Date Type Department Care Team (Late st Contact Info) Description 04/17/2024 Lab Requisition [facility] [address] [place] [address] Mo Starkey PA [address] [place] [address] Acute respiratory failure, unspecified whether with hypoxia [...] file documented as of this encounter Procedures * Due to [place] state law, this organization might not be [...] this encounter Results * Due to [place] state law, this organization might not be sharing negative HIV tests. * (ABNORMAL) Lipase (04/17/2024 12:44 PM EST) Pathologist [facility] Lipase 135(H) 13 - 60 U/L 04/18/2024 10:14 AM EST [facility] Blood Structure of peripheral vein / Unknown Venipuncture / Unknown 04/17/2024 12:44 PM EST 04/17/2024 12:44 PM EST [facility] BLOOD ORDERABLES Final R esult Performing Organization Address City/State/[facility] Co de Phone Number [facility] [address] [place] [address], [place] [phone] * (ABNORMAL) CBC Auto Differential (04/17/2024 12:44 PM EST) [facility] WBC 10.4 4.8 - 10.8 10*3/uL 04/17/2024 1:12 PM EST [facility] RBC 3.99(L) 4.20 - 5.40 10*6/uL 04/17/2024 1:12 PM EST [facility] Hemoglobin 10.0(L) 11.7 - 15.5 g/dL 04/17/2024 1:12 PM EST [facility] Hematocrit 31.1(L) 35.7 - 45.8 % 04/17/2024 1:12 PM EST [facility] MCV 77.9(L) 81.0 - 99.0 fL 04/17/2024 1:12 PM EST [facility] MCH 25.1(L) 26.0 - 34.0 pg 04/17/2024 1:12 PM EST [facility] MCHC 32.2 31.0 - 36.0 g/dL 04/17/2024 1:12 PM EST [facility] RDW 15.3(H) 12.0 - 15.0 % 04/17/2024 1:12 PM EST [facility] RDW Standard Deviation 43.8 36.4 - 46.3 fL 04/17/2024 1:12 PM EST [facility] Platelets 278 140 - 440 10*3/uL 04/17/2024 1:12 PM [facility] MPV 9.9 9.4 - 12.3 fL 04/17/2024 1:12 PM EST [facility] Neutrophil % 65.1 50.0 - 75.0 % 04/17/2024 1:12 PM [facility] Immature Grans % 0.4 0.0 - 0.9 % 04/17/2024 1:12 PM EST [facility] Lymphocyte % 27.9 20.0 - 44.0 % 04/17/2024 1:12 PM [facility] Monocyte % 4.5 0.0 - 14.0 % 04/17/2024 1:12 PM EST [facility] Eosinophil % 1.8 0.0 - 5.0 % 04/17/2024 1:12 PM EST [facility] Basophil % 0.3 0.0 - 2.0 % 04/17/2024 1:12 PM EST [facility] Neutrophil # 6.74 1.80 - 7.70 10*3/uL 04/17/2024 1:12 PM EST [facility] Immature Grans # 0.04(H) 0.00 - 0.03 10*3/uL 04/17/2024 1:12 PM EST [facility] Lymphocyte # 2.90 1.00 - 4.75 10*3/uL 04/17/2024 1:12 PM EST [facility] Monocyte # 0.50 0.00 - 0.60 10*3/uL 04/17/2024 1:12 PM EST [facility] Eosinophil # 0.20 0.00 - 0.80 10*3/uL 04/17/2024 1:12 PM EST [facility] Basophil # <0.03 0.00 - 0.20 10*3/uL 04/17/2024 1:12 PM EST [facility] nRBC % 0.0 0 - 0 /100 WBCs 04/17/2024 1:12 PM EST [facility] nRBC # <0.01 0.00 - 0.13 10*3/uL 04/17/2024 1:12 PM EST [facility] Blood Structure of peripheral vein / Unknown Venipuncture / Unknown 04/17/2024 12:44 PM EST 04/17/2024 12:44 PM EST us [facility] BLOOD ORDERABLES Final R esult Performing Organization Address City/State/[facility] Co de Phone Number [facility] [address] [place] [phone] * (ABNORMAL) Comprehensive Metabolic Panel (04/17/2024 12:44 PM EST) NA 136 136 - 145 mmol/L 04/17/2024 1:17 PM EST [facility] K 4.4 3.5 - 5.1 mmol/L 04/17/2024 1:17 PM EST [facility] Cl 99 98 - 109 mmol/L 04/17/2024 1:17 PM EST [facility] CO2 25 22 - 32 mmol/L 04/17/2024 1:17 PM EST [facility] Anion Gap 16 >=0 04/17/2024 1:17 PM EST [facility] Glucose 95 60 - 99 mg/dL 04/17/2024 1:17 PM EST [facility] Creatinine 0.57 0.50 - 1.12 mg/dL 04/17/2024 1:17 PM EST [facility] Calcium 9.5 8.4 - 10.4 mg/dL 04/17/2024 1:17 PM [facility] Total Protein 7.9 6.6 - 8.7 g/dL 04/17/2024 1:17 PM [facility] Albumin 3.4(L) 3.5 - 5.0 g/dL 04/17/2024 1:17 PM [facility] Bilirubin, Total 0.2 0.2 - 1.2 mg/dL 04/17/2024 1:17 PM [facility] Alkaline Phosphatase 210(H) 40 - 129 U/L 04/17/2024 1:17 PM [facility] AST 34(H) 0 - 33 U/L 04/17/2024 1:17 PM [facility] ALT 41(H) <=33 U/L 04/17/2024 1:17 PM [facility] BUN 23(H) 6 - 20 mg/dL 04/17/2024 1:17 PM [facility] eGFR >90 >=60 mL/min/1. 73m2 04/17/2024 1:17 PM [facility] Comment:The estimated glomer ular filtration rate [...] 2.1 - 4.2 g/dL 04/17/2024 1:17 PM [facility] A/G Ratio 0.8(L) 1.5 - 3.0 04/17/2024 1:17 PM [facility] Blood Structure of peripheral vein / Unknown Venipuncture / Unknown 04/17/2024 12:44 PM EST 04/17/2024 12:44 PM EST us [facility] BLOOD ORDERABLES Final R esult [facility] [address] [facility] [address] [place] [address], documented in this encounter Visit Diagnoses Diagnosis Acute respiratory failure, unspecified whether with hypoxia or hypercapnia (HCC) No diagnosis documented in this encounter Care Teams Oil Tank Car Cleaner Relationship Specialty Start Date End Date Jojo Seymour [address] [place] [address] PCP - General Internal Medicine 03/03/23 documented as of this encounter
--- NOTE | 2024-09-19 08:02 | MHC.OFFVIS ---
Vital Signs 09/19/24 08:07 Height 5 ft 2 in Weight 152 lb BMI 27.8 BP 126/76 Blood Pressure Location Rt brachial Position Sitting Pulse 66 Pulse Source Pulse Oximeter Pulse Oximetry (%) 96 Oxygen Delivery Method Room Air Intake Visit Reasons: f/u pancreatitis Intake Note: ESTABLISHED PATIENT for chronic pancreatitis mgmt, recent admission to [facility]. THIAGO October 2022 w/ Mel. Labs done per Dr. Jones 06/2024. Chief Complaint; Pt denies any specific changes since last visit. Pt wants to follow up on admission for pancreatitis and the intermittent abd pain. Pt reports having good days and bad days . Cistern Room Operator Required: No Accompanied by: Self / Same As Patient Allergies pravastatin Adverse Reaction (Unknown, Verified 09/19/24 08:03) nausea, tired HPI HPI f/u pancreatitis: Details: LAST VISIT WITH 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 Patient reports that she is slowly recuperating and feeling better each day. She is having physical therapy twice a week and getting her strength back. As mentioned above in HPI seen by Dr. Jones back in June after long hospitalization for necrotizing pancreatitis. We will recheck labs again today. Patient is following low-fat diet. Eating small meals and more often. Is taking Creon before meals and pantoprazole in the morning for reflux. Otherwise patient denies any GI concerning symptoms. [facility] Medical History Acute lactic acidosis Metabolic acidosis Anemia (~08/2019) Hyperlipidemia Hx of pancreatitis Hypertriglyceridemia Chronic idiopathic constipation Surgical History Hx of colonoscopy History of esophagogastroduodenoscopy (EGD) H/O tubal ligation S/P cholecystectomy Family History Father Hypertension Dyslipidemia Pancreatitis, recurrent Mother Hypertension Diabetes Acute CVA (cerebrovascular accident) Maternal Grandmother Uterine cancer Renal failure Maternal Grandfather CAD (coronary artery disease) Maternal Uncle Myocardial infarction Social History Household Members: Spouse and Children Housing: House Do you presently have visiting nurse or other home services: No Unable to assess alcohol history related to: Unknown Alcohol intake: former Comment: sleeping Patient Tobacco Use Status: Never used Tobacco service: No Current occupational status: employed 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 Review of Systems Const Denies weight gain and Denies weight loss ENT Reports no additional complaints, Denies dysphagia and Denies odynophagia Card Reports no additional complaints Resp Reports no additional complaints GI Denies abdominal pain, Denies belching, Denies melena, Denies bloating, Denies change in bowel habits, Denies dysphagia, Denies excessive flatus, Denies dyspepsia, Denies heartburn, Denies diarrhea, Denies loose stools, Denies nausea, Denies odynophagia and Denies vomiting Musc Reports no additional complaints Neuro Reports no additional complaints Psych Reports no additional complaints Endo Reports no additional complaints Physical Exam Vital Signs: Last Vital Signs Pulse 66 09/19/24 08:07 BP 126/76 09/19/24 08:07 Pulse Ox 96 09/19/24 08:07 Oxygen Delivery Method Room Air 09/19/24 08:07 BMI result Body Mass Index 27.8 Const General: healthy appearing, no acute distress and well developed Nutritional Appearance: obese Orientation/consciousness: patient oriented x3 HEENT Head: Yes normal to inspection, Yes normocephalic and Yes atraumatic Face and sinus: Yes normal facial exam Mouth: Normal oral and palatal mucosa present Throat: Yes posterior oropharynx normal, Yes tonsils normal and Yes uvula midline Eyes General: appearance normal, both eyes and all related structures Neck Neck: Yes normal visual inspection, Yes full ROM and Yes trachea midline Thyroid: Thyroid normal Resp Effort & Inspection: normal respiratory effort, able to speak in complete sentences, no tracheal deviation and symmetric chest movement Auscultation: clear to auscultation bilaterally Cardio Rate: regular rate Heart sounds: S1 normal heart sound present and S2 normal heart sound present GI Inspection: Yes normal to inspection, No distended and Yes obesity Palpation (GI): Soft to palpation, not firm, nontender and No hepatosplenomegaly present Auscultation: normal bowel sounds General: Yes no CVA tenderness Back/Spine/Pelvis Back: no CVA tenderness Skin General skin exam: elasticity normal, turgor normal and dry skin Neuro General: patient oriented x3 Psych Appearance: grossly normal Mental Status: mental status grossly normal Speech and movement: Normal speech and movement present Assessment & Plan Assessment & Plan (1) Hx of pancreatitis: Code(s): Z87.19 - Personal history of other diseases of the digestive system Category: Medical (2) Abdominal bloating: Code(s): R14.0 - Abdominal distension (gaseous) Plan Patient will continue with low-fat diet. She is doing much better now. Will repeat blood work. Patient will return in 2 months and we will send her for upper endoscopy and colonoscopy. Continue pantoprazole daily. Will recheck vitamin-D level as well. She is agreeable to this plan and verbalizes understanding of instructions. She was given the opportunity to ask questions and all questions answered. Thank you for allowing me to participate in her care Orders: Orders Lipid Panel Today I25.10 - Atherosclerotic heart disease of [place] coronary artery without angina pectoris Liver Panel Today R74.01 - Elevation of levels of liver transaminase levels Vitamin D 25-OH (D2 and D3) Today E55.9 - Vitamin D deficiency, unspecified Lipase Today R10.9 - Unspecified abdominal pain Complete Blood Count no Diff Today K21.9 - Gastro-esophageal reflux disease without esophagitis Coding Level of Care Code Est Pt Level 4 (07834) Complex EM visit Add On G2211 Diagnoses Hx of pancreatitis Z87.19 Abdominal bloating R14.0 Time Spent (min) 40 Comment 25 minutes spent with patient and additional 15 minutes spent reviewing her records
[2024-09-19 08:07] VITALS: BP 126/76; PULSE 66; O2SAT 96; BMI 27.8
== END 2024-09-19 08:23 | disposition home or self-care (01) ==
LOC: HO.HGI 07:54
PROVIDERS: PCP Internal Medicine; Visit Provider Nurse Practitioner Family
DX: Z87.19 Personal history of other diseases of the digestive system (principal); R14.0 Abdominal distension (gaseous)
CPT/HCPCS: 99214

== ENCOUNTER 2024-11-28 09:23 | Outpatient (AMB) | payer MEDICAID, SELFPAY ==
--- NOTE | 2024-11-28 09:30 | A.OFFVIS_ITS ---
Vital Signs 11/28/24 09:31 Height 5 ft 2 in Weight 168 lb BMI 30.7 BP 128/74 Blood Pressure Location Rt brachial Position Sitting Pulse 78 Pulse Source Pulse Oximeter Pulse Oximetry (%) 98 Oxygen Delivery Method Room Air Intake Visit Reasons: 2m Intake Note: ESTABLISHED PATIENT for chronic pancreatitis, abd bloating + constipation. Chief Complaint; C.O increased fatigue, dizziness, generalized abd pain in intermittent episodes x1.5 weeks recently. Acute onset, idiopathic in nature. Pt had been doing well up until this onset. Area Field Person Required: No Accompanied by: Self / Same As Patient Allergies pravastatin Adverse Reaction (Unknown, Verified 09/19/24 08:03) nausea, tired HPI HPI 2m: Details: LAST VISIT: Hx of pancreatitis Abdominal bloating Plan Patient will continue with low-fat diet. She is doing much better now. Will repeat blood work. Patient will return in 2 months and we will send her for upper endoscopy and colonoscopy. Continue pantoprazole daily. Will recheck vitamin-D level as well. She is agreeable to this plan and verbalizes understanding of instructions. She was given the opportunity to ask questions and all questions answered. ? Thank you for allowing me to participate in her care Orders Lipid Panel Today I25.10 Liver Panel Today R74.01 Vitamin D 25-OH (D2 and D3) Today E55.9 Lipase Today R10.9 Complete Blood Count no Diff Today K21.9 TODAY'S VISIT Patient is here today for follow-up. Patient reports that she has been doing well since last visit, however 2 weeks ago patient started feeling tired and reports increased abdominal pain. Patient reports to have good appetite however weight gain of 15 lb since September 19. Patient reports that she has no change in her diet. She continues to take Creon with meals and fenofibrate for triglyceremia. Patient had negative lipase. ALT and alk phosphate mildly elevated. Patient no longer is following up with lipid specially at [facility]. Patient continues to avoid alcohol. Patient is eating foods low in fat. [facility] Medical History Acute lactic acidosis Metabolic acidosis Anemia (~08/2019) Hyperlipidemia Hx of pancreatitis Hypertriglyceridemia Chronic idiopathic constipation Surgical History Hx of colonoscopy History of esophagogastroduodenoscopy (EGD) H/O tubal ligation S/P cholecystectomy Family History Father Hypertension Dyslipidemia Pancreatitis, recurrent Mother Hypertension Diabetes Acute CVA (cerebrovascular accident) Maternal Grandmother Uterine cancer Renal failure Maternal Grandfather CAD (coronary artery disease) Maternal Uncle Myocardial infarction Social History Household Members: Spouse and Children Housing: House Do you presently have visiting nurse or other home services: No Unable to assess alcohol history related to: Unknown Alcohol intake: former Comment: sleeping Patient Tobacco Use Status: Never used Tobacco service: No Current occupational status: employed 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 Review of Systems Const Denies weight gain and Denies weight loss ENT Reports no additional complaints, Denies dysphagia and Denies odynophagia Card Reports no additional complaints Resp Reports no additional complaints GI Denies abdominal pain, Denies belching, Denies melena, Reports bloating, Denies change in bowel habits, Denies dysphagia, Denies excessive flatus, Denies dyspepsia, Denies heartburn, Denies diarrhea, Denies loose stools, Denies nausea, Denies odynophagia and Denies vomiting Reports no additional complaints Musc Reports no additional complaints Neuro Reports no additional complaints Psych Reports no additional complaints Endo Reports no additional complaints Physical Exam Vital Signs: Last Vital Signs Pulse 78 11/28/24 09:31 BP 128/74 11/28/24 09:31 Pulse Ox 98 11/28/24 09:31 Oxygen Delivery Method Room Air 11/28/24 09:31 BMI result Body Mass Index 30.7 Const General: healthy appearing, no acute distress and well developed Nutritional Appearance: obese Orientation/consciousness: patient oriented x3 HEENT Head: Yes normal to inspection, Yes normocephalic and Yes atraumatic Face and sinus: Yes normal facial exam Mouth: Normal oral and palatal mucosa present Throat: Yes posterior oropharynx normal, Yes tonsils normal and Yes uvula midline Eyes General: appearance normal, both eyes and all related structures Neck Neck: Yes normal visual inspection, Yes full ROM and Yes trachea midline Thyroid: Thyroid normal Resp Effort & Inspection: normal respiratory effort, able to speak in complete sentences, no tracheal deviation and symmetric chest movement Auscultation: clear to auscultation bilaterally Cardio Rate: regular rate Heart sounds: S1 normal heart sound present and S2 normal heart sound present GI Inspection: Yes normal to inspection, No distended and Yes obesity Palpation (GI): Soft to palpation, not firm, nontender and No hepatosplenomegaly present Auscultation: normal bowel sounds General: Yes no CVA tenderness Back/Spine/Pelvis Back: no CVA tenderness Skin General skin exam: elasticity normal, turgor normal and dry skin Neuro General: patient oriented x3 Psych Appearance: grossly normal Mental Status: mental status grossly normal Speech and movement: Normal speech and movement present Assessment & Plan Assessment & Plan (1) Hx of pancreatitis: Code(s): Z87.19 - Personal history of other diseases of the digestive system Category: Medical (2) Hypertriglyceridemia: Code(s): E78.1 - Pure hyperglyceridemia Category: Medical (3) Hyperlipidemia: Code(s): E78.5 - Hyperlipidemia, unspecified Category: Medical (4) Abdominal bloating: Code(s): R14.0 - Abdominal distension (gaseous) Plan Patient will continue taking Creon with meals. Avoid dietary triggers in late night snacking. Staying upright for minimum 3 hours after meals discussed with patient. Patient was encouraged to stay on low fat diet. Follow-up in 3 months, sooner on as needed basis. Patient is agreeable to the plan and verbalizes understanding of instructions. She was given the opportunity to ask questions and all questions answered. Thank you for allowing me to participate in her care Orders: Orders DNA Analysis Hemochromatosis 11/28/24 R79.89 - Other specified abnormal findings of blood chemistry Lipase 11/28/24 R10.9 - Unspecified abdominal pain Liver Panel 11/28/24 R74.01 - Elevation of levels of liver transaminase levels Coding Level of Care Code Est Pt Level 4 (66334) Complex EM visit Add On G2211 Diagnoses Hx of pancreatitis Z87.19 Hypertriglyceridemia E78.1 Hyperlipidemia E78.5 Abdominal bloating R14.0 Time Spent (min) 40 Comment 25 minutes spent with patient and additional 15 minutes spent reviewing her records
[2024-11-28 09:31] VITALS: BP 128/74; PULSE 78; O2SAT 98; BMI 30.7
--- OUTSIDE RECORDS SUMMARY | 2024-11-28 10:48 | XMS_ITS | Encounter Summary ---
Author Organization [facility] Address [address] [place] [address] Care Team Providers Care Slip Feeder Name Role Phone Jojo Seymour Primary Care Provider + [phone] Encounter Details Date Type Department Care Team (Late st Contact Info) Description 04/24/2024 Lab Requisition [facility] [address] [place] [address] [phone] Mo Starkey PA [address] [place] [id number] Acute respiratory failure, unspecified whether with hypoxia [...] of this encounter Procedures * Due to [place] state law, [...] in this encounter Results * Due to [place] state law, this organization might not be sharing negative HIV tests. * (ABNORMAL) CBC Auto Differential (04/24/2024 9:56 AM EST) WBC 6.9 4.8 - 10.8 10*3/uL 04/24/2024 10:31 AM [facility] RBC 3.94(L) 4.20 - 5.40 10*6/uL 04/24/2024 10:31 AM [facility] Hemoglobin 9.8(L) 11.7 - 15.5 g/dL 04/24/2024 10:31 AM [facility] Hematocrit 30.5(L) 35.7 - 45.8 % 04/24/2024 10:31 AM [facility] MCV 77.4(L) 81.0 - 99.0 fL 04/24/2024 10:31 AM [facility] MCH 24.9(L) 26.0 - 34.0 pg 04/24/2024 10:31 AM [facility] MCHC 32.1 31.0 - 36.0 g/dL 04/24/2024 10:31 AM [facility] RDW 15.1(H) 12.0 - 15.0 % 04/24/2024 10:31 AM [facility] RDW Standard Deviation 42.6 36.4 - 46.3 fL 04/24/2024 10:31 AM [facility] Platelets 219 140 - 440 10*3/uL 04/24/2024 10:31 AM [facility] MPV 10.1 9.4 - 12.3 fL 04/24/2024 10:31 AM EST [facility] Neutrophil % 61.4 50.0 - 75.0 % 04/24/2024 10:31 AM EST [facility] Immature Grans % 0.3 0.0 - 0.9 % 04/24/2024 10:31 AM EST [facility] Lymphocyte % 29.7 20.0 - 44.0 % 04/24/2024 10:31 AM EST [facility] Monocyte % 6.6 0.0 - 14.0 % 04/24/2024 10:31 AM [facility] Eosinophil % 1.9 0.0 - 5.0 % 04/24/2024 10:31 AM [facility] Basophil % 0.1 0.0 - 2.0 % 04/24/2024 10:31 AM [facility] Neutrophil # 4.22 1.80 - 7.70 10*3/uL 04/24/2024 10:31 AM [facility] Immature Grans # <0.03 0.00 - 0.03 10*3/uL 04/24/2024 10:31 AM [facility] Lymphocyte # 2.00 1.00 - 4.75 10*3/uL 04/24/2024 10:31 AM [facility] Monocyte # 0.50 0.00 - 0.60 10*3/uL 04/24/2024 10:31 AM EST [facility] Eosinophil # 0.10 0.00 - 0.80 10*3/uL 04/24/2024 10:31 AM [facility] Basophil # <0.03 0.00 - 0.20 10*3/uL 04/24/2024 10:31 AM [facility] nRBC % 0.0 0 - 0 /100 WBCs 04/24/2024 10:31 AM [facility] nRBC # <0.01 0.00 - 0.13 10*3/uL 04/24/2024 10:31 AM [facility] Blood Structure of peripheral vein / Unknown Venipuncture / Unknown 04/24/2024 9:56 AM EST 04/24/2024 9:56 AM EST us [facility] BLOOD ORDERABLES Final R esult Performing Organization Address [facility]/ZIP Co de Phone Number [facility] [address] [address], [place] [phone] * (ABNORMAL) Lipase (04/24/2024 9:56 AM EST) Lipase 614(H) 13 - 60 U/L 04/24/2024 11:17 AM EST [facility] Comment:ALL DELTAS REVIEWED Blood Structure of peripheral vein / Unknown Venipuncture / Unknown 04/24/2024 9:56 AM EST 04/24/2024 9:56 AM EST [facility] BLOOD ORDERABLES Final R esult Performing Organization Address [facility] Co de Phone Number [facility] [address] [place] [address], [place] [phone] * (ABNORMAL) Amylase (04/24/2024 9:56 AM EST) Amylase 337(H) 28 - 127 U/L 04/24/2024 10:45 AM EST [facility] Blood Structure of peripheral vein / Unknown Venipuncture / Unknown 04/24/2024 9:56 AM EST 04/24/2024 9:56 AM EST us [facility] BLOOD ORDERABLES Final R esult Performing Organization Address City/[facility]/ZIP Co de Phone Number [facility] [address] [address], [place] [phone] * (ABNORMAL) Comprehensive Metabolic Panel (04/24/2024 9:56 AM EST) NA 135(L) 136 - 145 mmol/L 04/24/2024 10:45 AM [facility] K 4.2 3.5 - 5.1 mmol/L 04/24/2024 10:45 AM [facility] Cl 99 98 - 109 mmol/L 04/24/2024 10:45 AM [facility] CO2 25 22 - 32 mmol/L 04/24/2024 10:45 AM [facility] Anion Gap 15 >=0 04/24/2024 10:45 AM [facility] Glucose 106(H) 60 - 99 mg/dL 04/24/2024 10:45 AM [facility] Creatinine 0.59 0.50 - 1.12 mg/dL 04/24/2024 10:45 AM [facility] Calcium 9.7 8.4 - 10.4 mg/dL 04/24/2024 10:45 AM [facility] Total Protein 7.8 6.6 - 8.7 g/dL 04/24/2024 10:45 AM [facility] Albumin 3.4(L) 3.5 - 5.0 g/dL 04/24/2024 10:45 AM [facility] Bilirubin, Total 0.3 0.2 - 1.2 mg/dL 04/24/2024 10:45 AM [facility] Alkaline Phosphatase 188(H) 40 - 129 U/L 04/24/2024 10:45 AM [facility] AST 25 0 - 33 U/L 04/24/2024 10:45 AM [facility] ALT 25 <=33 U/L 04/24/2024 10:45 AM [facility] BUN 28(H) 6 - 20 mg/dL 04/24/2024 10:45 AM [facility] eGFR >90 >=60 mL/min/1. 73m2 04/24/2024 10:45 AM [facility] Comment:The estimated glomer ular filtration [...] - 4.2 g/dL 04/24/2024 10:45 AM EST [facility] A/G Ratio 0.8(L) 1.5 - 3.0 04/24/2024 10:45 AM EST [facility] Blood Structure of peripheral vein / Unknown Venipuncture / Unknown 04/24/2024 9:56 AM EST 04/24/2024 9:56 AM EST [facility] BLOOD ORDERABLES Final R esult [facility] [address] [facility] [address] [place] [address], documented in this encounter Visit Diagnoses Diagnosis Acute respiratory failure, unspecified whether with hypoxia or hypercapnia (HCC) No diagnosis documented in this encounter Care Teams Slip Feeder Relationship Specialty Start Date End Date Jojo Seymour [address] [place] [phone] PCP - General Internal Medicine 03/03/23 documented as of this encounter
--- OUTSIDE RECORDS SUMMARY | 2024-11-28 10:48 | XMS_ITS | Clinical Summary ---
Author Organization [facility] Address [address] [place] [address] Care Team Providers Care Poiser Balance Name Role Phone Jojo Seymour Primary Care [...] 74 03/04/2023 11:10 AM EST Temperature 36.7 C (98.1 F) 12/19/2022 12:17 PM EDT Respiratory Rate 20 03/04/2023 11:10 AM EST Oxygen Saturation 98% 03/04/2023 11:10 AM EST Inhaled Oxygen Concentration - - Weight 88 kg (194 lb 0.1 oz) 03/04/2023 11:10 AM EST Height 157.5 cm (5' 2 ) 03/04/2023 11:10 AM EST Body Mass Index 35.48 03/04/2023 11:10 AM EST Plan of Treatment Health Maintenance Due Date Last Done Comments Cologuard 1976 Colon Cancer Screening 1976 Colonoscopy 1976 FOBT / Fit Test 1976 HIV Screening 1976 HPV and Pap Smear 1976 Hepatitis C Screening 1976 Sigmoidoscopy 1976 Hepatitis B Vaccines (1 of 3 - 19+ 3-dose series) 1995 DTaP,Tdap,and Td Vaccines (1 - Tdap) 1998 Mammogram 2016 Alcohol/Substance Use Screening 03/22/2024 Depression Screening and Follow-Up 03/22/2024 Social Drivers of Health Annual Screening 03/22/2024 COVID-19 Vaccine (4 - 2024-2 6 season) 2024 04/18/2021, 08/21/2020, 07/24/2020 Influenza Vaccine (#1) 2024 , 02/10/2019 Cervical Cancer Screening 02/05/2025 Pap Smear 02/05/2025 02/05/2022 RSV Vaccine (60+ years old a nd patients) (1 - 1-dose 75+ series) 2051 Pneumococcal Vaccine: Pediatric (0-5 Years) and At-Risk Patients (6-50 Years) Aged Out No longer eligible based on patient's age to complete this topic Insurance [employer], AD[place]A [id number] Advance Directives * Presumed Full Code (Latest Code Status on File) Date Activated Date Inactivated Comments 12/19/2022 1:24 PM 12/20/2022 3:33 PM Care Teams Poiser Balance Relationship Specialty Start Date End Date Jojo Seymour [address] [place] [phone] PCP - General Internal Medicine 03/03/23
--- OUTSIDE RECORDS SUMMARY | 2024-11-28 10:48 | XMS_ITS | Encounter Summary ---
Author Organization [facility] Address [address] [place] [address] Care Team Providers Care Deicer Inspector Pneumatic Name Role Phone Jojo Seymour Primary Care Provider + [phone] Encounter Details Date Type Department Care Team (Late st Contact Info) Description 04/17/2024 Lab Requisition [facility] [address] [place] [address] Mo Starkey PA [address] [place] [address] Acute respiratory failure, unspecified whether with hypoxia [...] this encounter Procedures * Due to [place] state law, this organization might not be [...] this encounter Results * Due to [place] state law, this organization might not be sharing negative HIV tests. * (ABNORMAL) Lipase (04/17/2024 12:44 PM EST) Pathologist [facility] Lipase 135(H) 13 - 60 U/L 04/18/2024 10:14 AM EST [facility] Blood Structure of peripheral vein / Unknown Venipuncture / Unknown 04/17/2024 12:44 PM EST 04/17/2024 12:44 PM EST Mo NICOLAS LAB BLOOD ORDERABLES Final R esult Performing Organization Address City/State/[facility] Co de Phone Number [facility] [address] [place] [address], [place] [phone] * (ABNORMAL) CBC Auto Differential (04/17/2024 12:44 PM EST) [facility] WBC 10.4 4.8 - 10.8 10*3/uL 04/17/2024 1:12 PM EST [facility] RBC 3.99(L) 4.20 - 5.40 10*6/uL 04/17/2024 1:12 PM EST [facility] Hemoglobin 10.0(L) 11.7 - 15.5 g/dL 04/17/2024 1:12 PM EST [facility] Hematocrit 31.1(L) 35.7 - 45.8 % 04/17/2024 1:12 PM EST [facility] MCV 77.9(L) 81.0 - 99.0 fL 04/17/2024 1:12 PM EST [facility] MCH 25.1(L) 26.0 - 34.0 pg 04/17/2024 1:12 PM EST [facility] MCHC 32.2 31.0 - 36.0 g/dL 04/17/2024 1:12 PM EST [facility] RDW 15.3(H) 12.0 - 15.0 % 04/17/2024 1:12 PM EST [facility] RDW Standard Deviation 43.8 36.4 - 46.3 fL 04/17/2024 1:12 PM EST [facility] Platelets 278 140 - 440 10*3/uL 04/17/2024 1:12 PM [facility] MPV 9.9 9.4 - 12.3 fL 04/17/2024 1:12 PM EST [facility] Neutrophil % 65.1 50.0 - 75.0 % 04/17/2024 1:12 PM [facility] Immature Grans % 0.4 0.0 - 0.9 % 04/17/2024 1:12 PM EST [facility] Lymphocyte % 27.9 20.0 - 44.0 % 04/17/2024 1:12 PM [facility] Monocyte % 4.5 0.0 - 14.0 % 04/17/2024 1:12 PM EST [facility] Eosinophil % 1.8 0.0 - 5.0 % 04/17/2024 1:12 PM EST [facility] Basophil % 0.3 0.0 - 2.0 % 04/17/2024 1:12 PM EST [facility] Neutrophil # 6.74 1.80 - 7.70 10*3/uL 04/17/2024 1:12 PM EST [facility] Immature Grans # 0.04(H) 0.00 - 0.03 10*3/uL 04/17/2024 1:12 PM EST [facility] Lymphocyte # 2.90 1.00 - 4.75 10*3/uL 04/17/2024 1:12 PM EST [facility] Monocyte # 0.50 0.00 - 0.60 10*3/uL 04/17/2024 1:12 PM EST [facility] Eosinophil # 0.20 0.00 - 0.80 10*3/uL 04/17/2024 1:12 PM EST [facility] Basophil # <0.03 0.00 - 0.20 10*3/uL 04/17/2024 1:12 PM EST [facility] nRBC % 0.0 0 - 0 /100 WBCs 04/17/2024 1:12 PM EST [facility] nRBC # <0.01 0.00 - 0.13 10*3/uL 04/17/2024 1:12 PM EST [facility] Blood Structure of peripheral vein / Unknown Venipuncture / Unknown 04/17/2024 12:44 PM EST 04/17/2024 12:44 PM EST us Mo NICOLAS LAB BLOOD ORDERABLES Final R esult Performing Organization Address City/State/[facility] Co de Phone Number [facility] [address] [place] [address], * (ABNORMAL) Comprehensive Metabolic Panel (04/17/2024 12:44 PM EST) NA 136 136 - 145 mmol/L 04/17/2024 1:17 PM EST [facility] K 4.4 3.5 - 5.1 mmol/L 04/17/2024 1:17 PM EST [facility] Cl 99 98 - 109 mmol/L 04/17/2024 1:17 PM EST [facility] CO2 25 22 - 32 mmol/L 04/17/2024 1:17 PM EST [facility] Anion Gap 16 >=0 04/17/2024 1:17 PM EST [facility] Glucose 95 60 - 99 mg/dL 04/17/2024 1:17 PM EST [facility] Creatinine 0.57 0.50 - 1.12 mg/dL 04/17/2024 1:17 PM EST [facility] Calcium 9.5 8.4 - 10.4 mg/dL 04/17/2024 1:17 PM [facility] Total Protein 7.9 6.6 - 8.7 g/dL 04/17/2024 1:17 PM [facility] Albumin 3.4(L) 3.5 - 5.0 g/dL 04/17/2024 1:17 PM [facility] Bilirubin, Total 0.2 0.2 - 1.2 mg/dL 04/17/2024 1:17 PM [facility] Alkaline Phosphatase 210(H) 40 - 129 U/L 04/17/2024 1:17 PM [facility] AST 34(H) 0 - 33 U/L 04/17/2024 1:17 PM [facility] ALT 41(H) <=33 U/L 04/17/2024 1:17 PM [facility] BUN 23(H) 6 - 20 mg/dL 04/17/2024 1:17 PM [facility] eGFR >90 >=60 mL/min/1. 73m2 04/17/2024 1:17 PM [facility] Comment:The estimated glomer [...] 2.1 - 4.2 g/dL 04/17/2024 1:17 PM [facility] A/G Ratio 0.8(L) 1.5 - 3.0 04/17/2024 1:17 PM [facility] Blood Structure of peripheral vein / Unknown Venipuncture / Unknown 04/17/2024 12:44 PM EST 04/17/2024 12:44 PM EST us Mo NICOLAS LAB BLOOD ORDERABLES Final R esult [facility] [address] [facility] [address] [place] [address], documented in this encounter Visit Diagnoses Diagnosis Acute respiratory failure, unspecified whether with hypoxia or hypercapnia (HCC) No diagnosis documented in this encounter Care Teams Deicer Inspector Pneumatic Relationship Specialty Start Date End Date Jojo Seymour [address] [place] [address] PCP - General Internal Medicine 03/03/23 documented as of this encounter
--- OUTSIDE RECORDS SUMMARY | 2024-11-28 10:48 | XMS_ITS | Encounter Summary ---
Author Organization [employer] Address [address] [place] [address] Care Team Providers Care Returned Goods Inspector Name Role Phone Jojo Seymour MD Primary Care Provider [phone] Encounter Details Date Type Department Care Team (Late st Contact Info) Description 07/07/2022 Abstract [facility] [address] [place] [address] Jojo Seymour MD [address] [place], [place] [phone] Social History Tobacco Use Types Packs/Day Years [...] on file documented as of this encounter Visit Diagnoses Not on filedocumented in this encounter Care Teams Returned Goods Inspector Relationship Specialty Start Date End Date Jojo Seymour MD [address] [place], [place] [phone] PCP - General Internal Medicine 12/03/20 Julio [facility] 04/25/24 documented as of this encounter
--- OUTSIDE RECORDS SUMMARY | 2024-11-28 10:48 | XMS_ITS | Encounter Summary ---
Author Organization [facility] Address [address] [place] [address] Care Team Providers Care Brick Yard Hand Name Role Phone Jojo Seymour Primary Care Provider + [phone] Encounter Details Date Type Department Care Team (Late st Contact Info) Description 04/01/2024 Lab Requisition [facility] Site [address] [place] [address] [phone] Aga Infante MD [address] [place] [address] [place] [address] Acute respiratory failure, unspecified whether with hypoxia [...] - 10.8 10*3/uL 04/01/2024 10:44 AM EST [facility] RBC 3.85(L) 4.20 - 5.40 10*6/uL 04/01/2024 10:44 AM EST [facility] Hemoglobin 9.9(L) 11.7 - 15.5 g/dL 04/01/2024 10:44 AM EST [facility] Hematocrit 30.3(L) 35.7 - 45.8 % 04/01/2024 10:44 AM EST [facility] MCV 78.7(L) 81.0 - 99.0 fL 04/01/2024 10:44 AM EST [facility] MCH 25.7(L) 26.0 - 34.0 pg 04/01/2024 10:44 AM EST [facility] MCHC 32.7 31.0 - 36.0 g/dL 04/01/2024 10:44 AM EST [facility] RDW 14.8 12.0 - 15.0 % 04/01/2024 10:44 AM EST [facility] RDW Standard Deviation 42.4 36.4 - 46.3 fL 04/01/2024 10:44 AM EST [facility] Platelets 396 140 - 440 10*3/uL 04/01/2024 10:44 AM EST [facility] MPV 9.3(L) 9.4 - 12.3 fL 04/01/2024 10:44 AM EST [facility] Neutrophil % 57.6 50.0 - 75.0 % 04/01/2024 10:44 AM EST [facility] Immature Grans % 0.2 0.0 - 0.9 % 04/01/2024 10:44 AM EST [facility] Lymphocyte % 34.5 20.0 - 44.0 % 04/01/2024 10:44 AM EST [facility] Monocyte % 5.6 0.0 - 14.0 % 04/01/2024 10:44 AM EST [facility] Eosinophil % 1.7 0.0 - 5.0 % 04/01/2024 10:44 AM EST [facility] Basophil % 0.4 0.0 - 2.0 % 04/01/2024 10:44 AM EST [facility] Neutrophil # 5.12 1.80 - 7.70 10*3/uL 04/01/2024 10:44 AM EST [facility] Immature Grans # <0.03 0.00 - 0.03 10*3/uL 04/01/2024 10:44 AM EST [facility] Lymphocyte # 3.10 1.00 - 4.75 10*3/uL 04/01/2024 10:44 AM EST [facility] Monocyte # 0.50 0.00 - 6.00 10*3/uL 04/01/2024 10:44 AM EST [facility] Eosinophil # 0.20 0.00 - 0.80 10*3/uL 04/01/2024 10:44 AM EST [facility] Basophil # <0.03 0.00 - 0.20 10*3/uL 04/01/2024 10:44 AM EST [facility] nRBC % 0.0 0 - 0 /100 WBCs 04/01/2024 10:44 AM EST [facility] nRBC # <0.01 0.00 - 0.13 10*3/uL 04/01/2024 10:44 AM EST [facility] Blood Structure of peripheral vein / Unknown 04/01/2024 5:45 AM EST 04/01/2024 9:20 AM EST us Aga Infante MD LAB BLOOD ORDERABLES Final Res ult [facility] [address] [place] [address], * (ABNORMAL) Basic Metabolic Panel (04/01/2024 5:45 AM EST) NA 136 136 - 145 mmol/L 04/01/2024 10:56 AM EST [facility] K 4.3 3.5 - 5.1 mmol/L 04/01/2024 10:56 AM EST [facility] Cl 98 98 - 109 mmol/L 04/01/2024 10:56 AM EST [facility] CO2 27 22 - 32 mmol/L 04/01/2024 10:56 AM EST [facility] BUN 25(H) 6 - 20 mg/dL 04/01/2024 10:56 AM EST [facility] Creatinine 0.57 0.50 - 1.12 mg/dL 04/01/2024 10:56 AM EST [facility] Glucose 144(H) 60 - 99 mg/dL 04/01/2024 10:56 AM EST [facility] Calcium 9.3 8.4 - 10.4 mg/dL 04/01/2024 10:56 AM EST [facility] Anion Gap 15 >=0 04/01/2024 10:56 AM EST [facility] eGFR >90 >=60 mL/min/1. 73m2 04/01/2024 10:56 AM EST [facility] Comment:The estimated glomer ular filtration rate [...] MD LAB BLOOD ORDERABLES Final Res ult [facility] [address] [facility] [address] [place] [address], documented in this encounter Visit Diagnoses Diagnosis Acute respiratory failure, unspecified whether with hypoxia or hypercapnia (HCC) No diagnosis documented in this encounter Care Teams Brick Yard Hand Relationship Specialty Start Date End Date Jojo Seymour [address] [place] [phone] PCP - General Internal Medicine 03/03/23 documented as of this encounter
--- OUTSIDE RECORDS SUMMARY | 2024-11-28 10:48 | XMS_ITS | Encounter Summary ---
Author Organization [facility] Address [address] [place] [address] Care Team Providers Care Waterworks Operator Name Role Phone Jojo Seymour Primary Care Provider [phone] Encounter Details Date Type Department Care Team (Late st Contact Info) Description 04/11/2024 Lab Requisition [facility] [address] [place] [address] Juan M Conroy MD [address] [place] [address] Acute respiratory failure, unspecified whether with hypoxia [...] of this encounter Procedures * Due to [place] state law, this organization might not be [...] in this encounter Results * Due to [place] state law, this organization might not be sharing negative HIV tests. * (ABNORMAL) Microscopic Urinalysis Only (04/11/2024 9:30 AM EST) RBC, Urine None Seen None Seen, 0-2 /HPF 04/11/2024 11:08 AM EST [facility] WBC, Urine 0-2 None Seen, 0-2 /HPF 04/11/2024 11:08 AM EST [facility] Squamous Epithelial Cells, Urine 3-5 /HPF 04/11/2024 11:08 AM EST [facility] Calcium Oxalate Crystals, Urine Occasional /HPF 04/11/2024 11:08 AM EST [facility] Bacteria, Urine Occasional(A) None Seen /HPF 04/11/2024 11:08 AM EST [facility] Urine Urine specimen collection, clean catch / Unknown Non-Blood Collection / Unknown 04/11/2024 9:30 AM EST 04/11/2024 9:58 AM EST Juan M Conroy MD LAB URINE ORDERABLES Final Result Performing Organization Address City/State/[facility] Co de Phone Number [facility] [address] [place] [address] [address] [place] [address], * Hemoglobin A1c (04/11/2024 9:30 AM EST) Hemoglobin A1c 5.2 4.0 - 5.7 % 04/11/2024 10:30 AM EST [facility] Estimated Average Glucose 103 mg/dL 04/11/2024 10:30 AM EST [facility] Blood Structure of peripheral vein / Unknown Venipuncture / Unknown 04/11/2024 9:30 AM EST 04/11/2024 9:31 AM EST Juan M Conroy MD LAB BLOOD ORDERABLES Final Result Performing Organization Address [facility]/ZIP Co de Phone Number [facility] [address] [address], [place] [phone] * Christian Top, Urine (04/11/2024 9:30 AM EST) Extra Tube Hold for add-ons. 04/11/2024 2:05 PM EST [facility] Comment:Auto resulted. Urine Urine specimen collection, clean catch / Unknown Non-Blood Collection / Unknown 04/11/2024 9:30 AM EST 04/11/2024 9:31 AM EST us Juan M Conroy MD LAB URINE ORDERABLES Final Result Performing Organization Address [facility] de Phone Number [facility] [address] [address], [place] [phone] * (ABNORMAL) Urinalysis W/Reflex to Microscopic & Culture (04/11/2024 9:30 AM EST) Color, Urine Yellow Yellow 04/11/2024 9:58 AM EST [facility] Clarity, Urine Clear Clear 04/11/2024 9:58 AM EST [facility] Specific [place], Urine 1.020 1.005 - 1.030 04/11/2024 9:58 AM EST [facility] pH, Urine 7.5 5.0 - 8.0 04/11/2024 9:58 AM EST [facility] Protein, Urine 30(A) Negative mg/dL 04/11/2024 9:58 AM EST [facility] Glucose, Urine Negative Negative mg/dL 04/11/2024 9:58 AM EST [facility] Ketones, Urine Negative Negative mg/dL 04/11/2024 9:58 AM EST [facility] Bilirubin, Urine Negative Negative 04/11/2024 9:58 AM EST [facility] Blood, Urine Negative Negative 04/11/2024 9:58 AM EST [facility] Nitrite, Urine Negative Negative 04/11/2024 9:58 AM EST [facility] Urobilinogen, Urine 0.2 0.2 - 1.0 E.U./dL 04/11/2024 9:58 AM EST [facility] Leukocyte Esterase, Urine Trace(A) Negative 04/11/2024 9:58 AM EST [facility] Urine Urine specimen collection, clean catch / Unknown Non-Blood Collection / Unknown 04/11/2024 9:30 AM EST 04/11/2024 9:31 AM EST [facility] - 04/11/2024 9:58 AM EST Some urinalysis results will not meet the criteria for reflex urine culture although certain urine values may be abnormal. Additional testing can be ordered by the provider if clinically warranted. Juan M Conroy MD LAB URINE ORDERABLES Final Result Performing Organization Address City/State/[facility] Co de Phone Number [facility] [address] [place] [address] [address] [place] [address], [place] [phone] * (ABNORMAL) CBC Auto Differential (04/11/2024 9:30 AM EST) WBC 11.5(H) 4.8 - 10.8 10*3/uL 04/11/2024 9:50 AM EST [facility] RBC 3.76(L) 4.20 - 5.40 10*6/uL 04/11/2024 9:50 AM EST [facility] Hemoglobin 9.5(L) 11.7 - 15.5 g/dL 04/11/2024 9:50 AM EST [facility] Hematocrit 29.3(L) 35.7 - 45.8 % 04/11/2024 9:50 AM EST [facility] MCV 77.9(L) 81.0 - 99.0 fL 04/11/2024 9:50 AM EST [facility] MCH 25.3(L) 26.0 - 34.0 pg 04/11/2024 9:50 AM [facility] MCHC 32.4 31.0 - 36.0 g/dL 04/11/2024 9:50 AM [facility] RDW 14.7 12.0 - 15.0 % 04/11/2024 9:50 AM [facility] RDW Standard Deviation 41.8 36.4 - 46.3 fL 04/11/2024 9:50 AM [facility] Platelets 285 140 - 440 10*3/uL 04/11/2024 9:50 AM [facility] MPV 9.3(L) 9.4 - 12.3 fL 04/11/2024 9:50 AM [facility] Neutrophil % 68.0 50.0 - 75.0 % 04/11/2024 9:50 AM [facility] Immature Grans % 0.3 0.0 - 0.9 % 04/11/2024 9:50 AM [facility] Lymphocyte % 25.7 20.0 - 44.0 % 04/11/2024 9:50 AM [facility] Monocyte % 4.6 0.0 - 14.0 % 04/11/2024 9:50 AM [facility] Eosinophil % 1.1 0.0 - 5.0 % 04/11/2024 9:50 AM [facility] Basophil % 0.3 0.0 - 2.0 % 04/11/2024 9:50 AM [facility] Neutrophil # 7.84(H) 1.80 - 7.70 10*3/uL 04/11/2024 9:50 AM [facility] Immature Grans # 0.03 0.00 - 0.03 10*3/uL 04/11/2024 9:50 AM [facility] Lymphocyte # 3.00 1.00 - 4.75 10*3/uL 04/11/2024 9:50 AM [facility] Monocyte # 0.50 0.00 - 6.00 10*3/uL 04/11/2024 9:50 AM EST [facility] Eosinophil # 0.10 0.00 - 0.80 10*3/uL 04/11/2024 9:50 AM EST [facility] Basophil # <0.03 0.00 - 0.20 10*3/uL 04/11/2024 9:50 AM EST [facility] nRBC % 0.0 0 - 0 /100 WBCs 04/11/2024 9:50 AM EST [facility] nRBC # <0.01 0.00 - 0.13 10*3/uL 04/11/2024 9:50 AM EST [facility] Blood Structure of peripheral vein / Unknown Venipuncture / Unknown 04/11/2024 9:30 AM EST 04/11/2024 9:31 AM EST Juan M Conroy MD LAB BLOOD ORDERABLES Final Result Performing Organization Address City/[facility]/ZIP Co de Phone Number [facility] [address] [address], [place] [phone] * Vitamin B12 (04/11/2024 9:30 AM EST) Vitamin B12 713 232 - 1,245 pg/mL 04/11/2024 10:29 AM EST [facility] Blood Structure of peripheral vein / Unknown Venipuncture / Unknown 04/11/2024 9:30 AM EST 04/11/2024 9:31 AM EST Juan M Conroy MD LAB BLOOD ORDERABLES Final Result [facility] [address] [address], [place] [phone] * TSH (04/11/2024 9:30 AM EST) TSH 3.590 0.270 - 4.200 uIU/mL 04/11/2024 10:21 AM EST [facility] Comment: Females: 1st trimester 0.150-4.000 IU/mL 2nd trimester 0.310-4.170 IU/mL 3rd trimester 0.380-4.150 IU/mL Blood Structure of peripheral vein / Unknown Venipuncture / Unknown 04/11/2024 9:30 AM EST 04/11/2024 9:31 AM EST Juan M Conroy MD LAB BLOOD ORDERABLES Final Result Performing Organization Address [facility] Co de Phone Number [facility] [address] [address], [place] [phone] * T4, Free (04/11/2024 9:30 AM EST) Free T4 1.12 0.80 - 1.80 ng/dL 04/11/2024 10:21 AM EST [facility] Comment: Females: (ng/dL) First Trimester 0.95-1.58 ng/dL Second Trimester 0.76-1.24 ng/dL Third Trimester 0.70-1.25 ng/dL Dietary supplements containing biotin may interfere in assays and may skew analyte results to be falsely high. For patients receiving the recommended daily doses of biotin, draw samples at least 8 hours following the last biotin supplementation. For patients on dena-doses of biotin supplements, draw samples at least 72 hours following the last biotin supplementation. Blood Structure of peripheral vein / Unknown Venipuncture / Unknown 04/11/2024 9:30 AM EST 04/11/2024 9:31 AM EST Juan M Conroy MD LAB BLOOD ORDERABLES Final Result Performing Organization Address [facility] Co de Phone Number [facility] [address] [address], [place] [phone] * (ABNORMAL) Phosphorus (04/11/2024 9:30 AM EST) Phosphorus 5.9(H) 2.5 - 4.5 mg/dL 04/11/2024 10:21 AM EST [facility] Blood Structure of peripheral vein / Unknown Venipuncture / Unknown 04/11/2024 9:30 AM EST 04/11/2024 9:31 AM EST us Juan M Conroy MD LAB BLOOD ORDERABLES Final Result Performing Organization Address [facility]/ZIP Co de Phone Number [facility] [address] [address], * Magnesium (04/11/2024 9:30 AM EST) MG 2.0 1.5 - 2.5 mg/dL 04/11/2024 10:21 AM EST [facility] Blood Structure of peripheral vein / Unknown Venipuncture / Unknown 04/11/2024 9:30 AM EST 04/11/2024 9:31 AM EST Juan M Conroy MD LAB BLOOD ORDERABLES Final Result Performing Organization Address [facility] Co de Phone Number [facility] [address] [place] [address], [place] [phone] * N-terminal ProBrain Natriuretic Peptide - [facility] & MEM/AUDREYV/Darrell Only (04/11/2024 9:30 AM EST) Pro-B-Type Natriuretic Peptide 102 <=450 pg/mL 04/11/2024 10:15 AM EST [facility] Comment: RULE IN CHF >/= [...] ORDERABLES Final Result Performing Organization Address City/[facility]/ZIP Co de Phone Number [facility] [address] [address], [place] [phone] * Ammonia (04/11/2024 9:30 AM EST) Ammonia 25 11 - 51 umol/L 04/11/2024 10:11 AM EST [facility] Blood Structure of peripheral vein / Unknown Venipuncture / Unknown 04/11/2024 9:30 AM EST 04/11/2024 9:31 AM EST Juan M Conroy MD LAB BLOOD ORDERABLES Final Result Performing Organization Address [facility] Co de Phone Number [facility] [address] [address], [place] [phone] * (ABNORMAL) Basic Metabolic Panel (04/11/2024 9:30 AM EST) NA 136 136 - 145 mmol/L 04/11/2024 10:21 AM EST [facility] K 4.6 3.5 - 5.1 mmol/L 04/11/2024 10:21 AM EST [facility] Cl 100 98 - 109 mmol/L 04/11/2024 10:21 AM EST [facility] CO2 25 22 - 32 mmol/L 04/11/2024 10:21 AM EST [facility] BUN 19 6 - 20 mg/dL 04/11/2024 10:21 AM EST [facility] Creatinine 0.61 0.50 - 1.12 mg/dL 04/11/2024 10:21 AM EST [facility] Glucose 101(H) 60 - 99 mg/dL 04/11/2024 10:21 AM EST [facility] Calcium 9.4 8.4 - 10.4 mg/dL 04/11/2024 10:21 AM EST [facility] Anion Gap 16 >=0 04/11/2024 10:21 AM EST [facility] eGFR >90 >=60 mL/min/1. 73m2 04/11/2024 10:21 AM EST [facility] Comment:The estimated glomer ular filtration [...] Conroy MD LAB BLOOD ORDERABLES Final Result [facility] [address] [place] [address], [place] [phone] documented in this encounter Visit Diagnoses Diagnosis Acute respiratory failure, unspecified whether with hypoxia or hypercapnia (HCC) No diagnosis documented in this encounter Care Teams Waterworks Operator Relationship Specialty Start Date End Date Jojo Seymour [address] [place] [id number] PCP - General Internal Medicine 03/03/23 documented as of this encounter
--- OUTSIDE RECORDS SUMMARY | 2024-11-28 10:48 | XMS_ITS | Encounter Summary ---
Author Organization [facility] Address [address] [place] [address] Phone Care Team Providers Care Tissue Recovery Technician Name Role Phone Jojo Seymour MD Primary Care Provider [phone] Encounter Details Date Type Department Care Team ([facility] st Contact Info) Description 05/21/2020 Orders Only [facility] [address] [place] [phone] ProviderRandal MD Social History Tobacco Use Types [...] on filedocumented in this encounter Care Teams Tissue Recovery Technician Relationship Specialty Start Date End Date Jojo Seymour MD [address] [place] [address] [phone] PCP - General Internal Medicine 10/19/22 documented as of this encounter
--- OUTSIDE RECORDS SUMMARY | 2024-11-28 10:48 | XMS_ITS | Encounter Summary ---
Author Organization [facility] Address [address] [place] [address] Care Team Providers Care Box Maker Wood Name Role Phone Jojo Seymour Primary Care Provider + [phone] Encounter Details Date Type Department Care Team (Late st Contact Info) Description 04/10/2024 Lab Requisition [facility] [address] [place] [address] Mo Starkey PA [address] [place] [address] Acute and chronic respiratory failure with hypoxia; [...] of this encounter Procedures * Due to [place] state law, this organization might not be sharing negative HIV tests. Procedure Name Priority Date/Time Associated Diagnosis Comments CBC AUTO DIFFERENTIAL Routine 04/10/2024 10:25 AM EST Acute and chronic respiratory failure with hypoxia (HCC) No diagnosis COMPREHENSIVE METABOLIC PANEL Routine 04/10/2024 10:25 AM EST Acute and chronic respiratory failure with hypoxia (HCC) No diagnosis documented in this encounter Results * Due to [place] state law, this organization might not be sharing negative HIV tests. * (ABNORMAL) Comprehensive Metabolic Panel (04/10/2024 10:25 AM EST) NA 134(L) 136 - 145 mmol/L 04/10/2024 11:15 AM EST [facility] K 4.1 3.5 - 5.1 mmol/L 04/10/2024 11:15 AM EST [facility] Cl 98 98 - 109 mmol/L 04/10/2024 11:15 AM EST [facility] CO2 27 22 - 32 mmol/L 04/10/2024 11:15 AM EST [facility] Anion Gap 13 >=0 04/10/2024 11:15 AM EST [facility] Glucose 92 60 - 99 mg/dL 04/10/2024 11:15 AM [facility] Creatinine 0.57 0.50 - 1.12 mg/dL 04/10/2024 11:15 AM EST [facility] Calcium 9.3 8.4 - 10.4 mg/dL 04/10/2024 11:15 AM [facility] Total Protein 7.9 6.6 - 8.7 g/dL 04/10/2024 11:15 AM [facility] Albumin 3.3(L) 3.5 - 5.0 g/dL 04/10/2024 11:15 AM [facility] Bilirubin, Total 0.2 0.2 - 1.2 mg/dL 04/10/2024 11:15 AM EST [facility] Alkaline Phosphatase 198(H) 40 - 129 U/L 04/10/2024 11:15 AM EST [facility] AST 20 0 - 33 U/L 04/10/2024 11:15 AM [facility] ALT 24 <=33 U/L 04/10/2024 11:15 AM [facility] BUN 20 6 - 20 mg/dL 04/10/2024 11:15 AM [facility] eGFR >90 >=60 mL/min/1. 73m2 04/10/2024 11:15 AM EST [facility] Comment:The estimated glomer ular [...] - 4.2 g/dL 04/10/2024 11:15 AM EST [facility] A/G Ratio 0.7(L) 1.5 - 3.0 04/10/2024 11:15 AM EST [facility] Blood Structure of peripheral vein / Unknown Venipuncture / Unknown 04/10/2024 10:25 AM EST 04/10/2024 10:25 AM EST Mo [facility] BLOOD ORDERABLES Final R esult [facility] [address] [facility] [address] [place] [address], * (ABNORMAL) CBC Auto Differential (04/10/2024 10:25 AM EST) WBC 12.7(H) 4.8 - 10.8 10*3/uL 04/10/2024 10:54 AM EST [facility] RBC 3.80(L) 4.20 - 5.40 10*6/uL 04/10/2024 10:54 AM EST [facility] Hemoglobin 9.5(L) 11.7 - 15.5 g/dL 04/10/2024 10:54 AM EST [facility] Hematocrit 29.6(L) 35.7 - 45.8 % 04/10/2024 10:54 AM EST [facility] MCV 77.9(L) 81.0 - 99.0 fL 04/10/2024 10:54 AM EST [facility] MCH 25.0(L) 26.0 - 34.0 pg 04/10/2024 10:54 AM [facility] MCHC 32.1 31.0 - 36.0 g/dL 04/10/2024 10:54 AM [facility] RDW 14.7 12.0 - 15.0 % 04/10/2024 10:54 AM [facility] RDW Standard Deviation 41.7 36.4 - 46.3 fL 04/10/2024 10:54 AM [facility] Platelets 299 140 - 440 10*3/uL 04/10/2024 10:54 AM [facility] MPV 9.3(L) 9.4 - 12.3 fL 04/10/2024 10:54 AM [facility] Neutrophil % 72.6 50.0 - 75.0 % 04/10/2024 10:54 AM [facility] Immature Grans % 0.5 0.0 - 0.9 % 04/10/2024 10:54 AM [facility] Lymphocyte % 22.1 20.0 - 44.0 % 04/10/2024 10:54 AM [facility] Monocyte % 3.7 0.0 - 14.0 % 04/10/2024 10:54 AM [facility] Eosinophil % 0.9 0.0 - 5.0 % 04/10/2024 10:54 AM EST [facility] Basophil % 0.2 0.0 - 2.0 % 04/10/2024 10:54 AM [facility] Neutrophil # 9.25(H) 1.80 - 7.70 10*3/uL 04/10/2024 10:54 AM [facility] Immature Grans # 0.06(H) 0.00 - 0.03 10*3/uL 04/10/2024 10:54 AM EST [facility] Lymphocyte # 2.80 1.00 - 4.75 10*3/uL 04/10/2024 10:54 AM EST [facility] Monocyte # 0.50 0.00 - 6.00 10*3/uL 04/10/2024 10:54 AM EST [facility] Eosinophil # 0.10 0.00 - 0.80 10*3/uL 04/10/2024 10:54 AM EST [facility] Basophil # <0.03 0.00 - 0.20 10*3/uL 04/10/2024 10:54 AM EST [facility] nRBC % 0.0 0 - 0 /100 WBCs 04/10/2024 10:54 AM EST [facility] nRBC # <0.01 0.00 - 0.13 10*3/uL 04/10/2024 10:54 AM EST [facility] Blood Structure of peripheral vein / Unknown Venipuncture / Unknown 04/10/2024 10:25 AM EST 04/10/2024 10:25 AM EST us Mo [facility] BLOOD ORDERABLES Final R esult Performing Organization Address City/State/[facility] Co de Phone Number [facility] [address] [facility] [address] [place] [address], documented in this encounter Visit Diagnoses Diagnosis Acute and chronic respiratory failure with hypoxia (HCC) No diagnosis documented in this encounter Care Teams Box Maker Wood Relationship Specialty Start Date End Date Jojo Seymour [address] [place] [address] PCP - General Internal Medicine 03/03/23 documented as of this encounter
--- OUTSIDE RECORDS SUMMARY | 2024-11-28 10:48 | XMS_ITS | Encounter Summary ---
Author Organization [facility] Address [address] [place] [address] Care Team Providers Care Tele Rn Name Role Phone Jojo Seymour Primary Care Provider + [phone] Encounter Details Date Type Department Care Team (Late st Contact Info) Description 03/27/2024 Lab Requisition [facility] [address] [place] [address] Mo Starkey PA [address] [place] [address] Acute respiratory failure, unspecified whether with hypoxia [...] of this encounter Procedures * Due to [place] state law, this organization might not be [...] in this encounter Results * Due to [place] state law, this organization might not be sharing negative HIV tests. * (ABNORMAL) CBC Auto Differential (03/27/2024 10:03 AM EST) WBC 12.2(H) 4.8 - 10.8 10*3/uL 03/27/2024 10:21 AM [facility] RBC 3.60(L) 4.20 - 5.40 10*6/uL 03/27/2024 10:21 AM [facility] Hemoglobin 9.3(L) 11.7 - 15.5 g/dL 03/27/2024 10:21 AM [facility] Hematocrit 28.9(L) 35.7 - 45.8 % 03/27/2024 10:21 AM [facility] MCV 80.3(L) 81.0 - 99.0 fL 03/27/2024 10:21 AM [facility] MCH 25.8(L) 26.0 - 34.0 pg 03/27/2024 10:21 AM [facility] MCHC 32.2 31.0 - 36.0 g/dL 03/27/2024 10:21 AM [facility] RDW 14.7 12.0 - 15.0 % 03/27/2024 10:21 AM [facility] RDW Standard Deviation 43.6 36.4 - 46.3 fL 03/27/2024 10:21 AM [facility] Platelets 375 140 - 440 10*3/uL 03/27/2024 10:21 AM [facility] MPV 9.2(L) 9.4 - 12.3 fL 03/27/2024 10:21 AM [facility] Neutrophil % 67.4 50.0 - 75.0 % 03/27/2024 10:21 AM [facility] Immature Grans % 0.3 0.0 - 0.9 % 03/27/2024 10:21 AM EST [facility] Lymphocyte % 25.3 20.0 - 44.0 % 03/27/2024 10:21 AM EST [facility] Monocyte % 4.7 0.0 - 14.0 % 03/27/2024 10:21 AM [facility] Eosinophil % 2.0 0.0 - 5.0 % 03/27/2024 10:21 AM EST [facility] Basophil % 0.3 0.0 - 2.0 % 03/27/2024 10:21 AM EST [facility] Neutrophil # 8.22(H) 1.80 - 7.70 10*3/uL 03/27/2024 10:21 AM EST [facility] Immature Grans # 0.04(H) 0.00 - 0.03 10*3/uL 03/27/2024 10:21 AM [facility] Lymphocyte # 3.10 1.00 - 4.75 10*3/uL 03/27/2024 10:21 AM EST [facility] Monocyte # 0.60 0.00 - 6.00 10*3/uL 03/27/2024 10:21 AM EST [facility] Eosinophil # 0.20 0.00 - 0.80 10*3/uL 03/27/2024 10:21 AM [facility] Basophil # <0.03 0.00 - 0.20 10*3/uL 03/27/2024 10:21 AM EST [facility] nRBC % 0.0 0 - 0 /100 WBCs 03/27/2024 10:21 AM [facility] nRBC # <0.01 0.00 - 0.13 10*3/uL 03/27/2024 10:21 AM [facility] Blood Structure of peripheral vein / Unknown Venipuncture / Unknown 03/27/2024 10:03 AM EST 03/27/2024 10:03 AM EST [facility] BLOOD ORDERABLES Final R esult [facility] [address] [place] [place] [address] [place] [address], [place] [phone] * (ABNORMAL) Comprehensive Metabolic Panel (03/27/2024 10:03 AM EST) NA 134(L) 136 - 145 mmol/L 03/27/2024 10:44 AM EST [facility] K 4.5 3.5 - 5.1 mmol/L 03/27/2024 10:44 AM EST [facility] Cl 97(L) 98 - 109 mmol/L 03/27/2024 10:44 AM EST [facility] CO2 27 22 - 32 mmol/L 03/27/2024 10:44 AM EST [facility] Anion Gap 15 >=0 03/27/2024 10:44 AM EST [facility] Glucose 123(H) 60 - 99 mg/dL 03/27/2024 10:44 AM EST [facility] Creatinine 0.50 0.50 - 1.12 mg/dL 03/27/2024 10:44 AM EST [facility] Calcium 9.6 8.4 - 10.4 mg/dL 03/27/2024 10:44 AM EST [facility] Total Protein 8.1 6.6 - 8.7 g/dL 03/27/2024 10:44 AM EST [facility] Albumin 3.3(L) 3.5 - 5.0 g/dL 03/27/2024 10:44 AM EST [facility] Bilirubin, Total 0.3 0.2 - 1.2 mg/dL 03/27/2024 10:44 AM EST [facility] Alkaline Phosphatase 246(H) 40 - 129 U/L 03/27/2024 10:44 AM EST [facility] AST 23 0 - 33 U/L 03/27/2024 10:44 AM EST [facility] ALT 25 <=33 U/L 03/27/2024 10:44 AM EST [facility] BUN 24(H) 6 - 20 mg/dL 03/27/2024 10:44 AM EST [facility] eGFR >90 >=60 mL/min/1. 73m2 03/27/2024 10:44 AM EST [facility] Comment:The estimated glomer ular filtration rate [...] - 4.2 g/dL 03/27/2024 10:44 AM EST [facility] A/G Ratio 0.7(L) 1.5 - 3.0 03/27/2024 10:44 AM EST [facility] Blood Structure of peripheral vein / Unknown Venipuncture / Unknown 03/27/2024 10:03 AM EST 03/27/2024 10:03 AM EST [facility] BLOOD ORDERABLES Final R esult [facility] [address] [facility] [address] [place] [address], documented in this encounter Visit Diagnoses Diagnosis Acute respiratory failure, unspecified whether with hypoxia or hypercapnia (HCC) No diagnosis documented in this encounter Care Teams Tele Rn Relationship Specialty Start Date End Date Jojo Seymour [address] [place] [address] PCP - General Internal Medicine 03/03/23 documented as of this encounter
--- OUTSIDE RECORDS SUMMARY | 2024-11-28 10:48 | XMS_ITS | Clinical Summary ---
Author Organization [facility] Address [address] [facility] [address] [place] [phone] Phone Care Team Providers Care Ventilating Equipment Installer Name Role Phone Unavailable Primary Care Provider Unavailabl e Social History Tobacco Use Types Packs/Day Years Used Date Smoking Tobacco: Never Assessed Education Answer Date Recorded Are you interested in more education? Not on yemi e 11/08/2023 Are you concerned about learning? Not on file 11/08/2023 No 11/08/2023 No 11/08/2023 Digital Access Answer Date Recorded No 11/08/2023 No 11/08/2023 Reliable internet access at home? Not on file 11/08/2023 Device with a working camera? Not on file Comments Unknown Sex and Gender Information Value Date Recorded Sex Assigned at Not on file Legal Sex Female 3:14 PM EDT Gender Identity Not on file Sexual Orientation Not on file Plan of Treatment Not on file Medical Devices Not on file Additional Source Comments The information contained in this document represents components of the legal health record. It is not the complete legal health record.[facility]
--- OUTSIDE RECORDS SUMMARY | 2024-11-28 10:48 | XMS_ITS | Encounter Summary ---
Author Organization [facility] Address [address] [place] [address] Care Team Providers Care Business Process Lead Name Role Phone Jojo Seymour Primary Care Provider + [phone] Encounter Details Date Type Department Care Team (Late st Contact Info) Description 04/20/[address] [facility] [address] [place] [address] Natalia Oropeza MD [address] [place] [address] Acute respiratory failure, unspecified whether with hypoxia [...] this encounter Procedures * Due to [place] law, this organization might not be sharing negative HIV tests. Procedure Name Priority Date/Time Associated Diagnosis Comments LIPASE Routine 04/20/2024 9:53 AM EST Acute respiratory failure, unspecified whether with hypoxia or hypercapnia (HCC) No diagnosis documented in this encounter Results * Due to [place] law, this organization might not be sharing negative HIV tests. * (ABNORMAL) Lipase (04/20/2024 9:53 AM EST) Lipase 108(H) 13 - 60 U/L 04/20/2024 11:07 AM EST [facility] Blood Structure of peripheral vein / Unknown Venipuncture / Unknown 04/20/2024 9:53 AM EST 04/20/2024 9:53 AM EST us Natalia Oropeza MD LAB BLOOD ORDERABLES Final Res ult [facility] [address] [place] [address], documented in this encounter Visit Diagnoses Diagnosis Acute respiratory failure, unspecified whether with hypoxia or hypercapnia (HCC) No diagnosis documented in this encounter Care Teams Business Process Lead Relationship Specialty Start Date End Date Jojo Seymour [address] [place] [id number] PCP - General Internal Medicine 03/03/23 documented as of this encounter
--- OUTSIDE RECORDS SUMMARY | 2024-11-28 10:48 | XMS_ITS | Encounter Summary ---
Author Organization [facility] [employer] Address [address] [facility] 7 [place] [address] Care Team Providers Care Engineering Psychologist Name Role Phone Jojo Seymour MD Primary Care Provider [phone] Encounter Details Date Type Department Care Team (Late st Contact Info) Description 06/01/2024 Orders Only [facility] [address] [place] [address] Jojo Seymour MD [address] [place] [address] Other chronic pancreatitis (CMS/HCC) (Primary Dx); Acute [...] documented as of this encounter Care Teams Engineering Psychologist Relationship Specialty Start Date End Date Jojo Seymour MD [address] [place] [address] PCP - General Internal Medicine 12/03/20 Julio NERI 04/25/24 documented as of this encounter
--- OUTSIDE RECORDS SUMMARY | 2024-11-28 10:48 | XMS_ITS | Encounter Summary ---
Author Organization [facility] Address [address] [place] [address] Care Team Providers Care Cryogenics Repairer Name Role Phone Jojo Seymour Primary Care Provider + [phone] Encounter Details Date Type Department Care Team (Late st Contact Info) Description 04/03/2024 Lab Requisition [facility] [address] [place] [address] Aga Infante MD [address] [place] [phone] Acute respiratory failure, unspecified whether with hypoxia [...] this encounter Procedures * Due to [place] state law, this organization might not be [...] this encounter Results * Due to [place] state law, this organization might not be sharing negative HIV tests. * (ABNORMAL) CBC Auto Differential (04/03/2024 10:00 AM EST) WBC 11.1(H) 4.8 - 10.8 10*3/uL 04/03/2024 10:20 AM EST [facility] RBC 3.47(L) 4.20 - 5.40 10*6/uL 04/03/2024 10:20 AM EST [facility] Hemoglobin 8.7(L) 11.7 - 15.5 g/dL 04/03/2024 10:20 AM [facility] Hematocrit 27.1(L) 35.7 - 45.8 % 04/03/2024 10:20 AM EST [facility] MCV 78.1(L) 81.0 - 99.0 fL 04/03/2024 10:20 AM [facility] MCH 25.1(L) 26.0 - 34.0 pg 04/03/2024 10:20 AM EST [facility] MCHC 32.1 31.0 - 36.0 g/dL 04/03/2024 10:20 AM EST [facility] RDW 14.6 12.0 - 15.0 % 04/03/2024 10:20 AM EST [facility] RDW Standard Deviation 41.7 36.4 - 46.3 fL 04/03/2024 10:20 AM EST [facility] Platelets 306 140 - 440 10*3/uL 04/03/2024 10:20 AM EST [facility] MPV 9.2(L) 9.4 - 12.3 fL 04/03/2024 10:20 AM [facility] Neutrophil % 65.4 50.0 - 75.0 % 04/03/2024 10:20 AM EST [facility] Immature Grans % 0.5 0.0 - 0.9 % 04/03/2024 10:20 AM EST [facility] Lymphocyte % 27.1 20.0 - 44.0 % 04/03/2024 10:20 AM EST [facility] Monocyte % 5.2 0.0 - 14.0 % 04/03/2024 10:20 AM EST [facility] Eosinophil % 1.4 0.0 - 5.0 % 04/03/2024 10:20 AM EST [facility] Basophil % 0.4 0.0 - 2.0 % 04/03/2024 10:20 AM EST [facility] Neutrophil # 7.24 1.80 - 7.70 10*3/uL 04/03/2024 10:20 AM EST [facility] Immature Grans # 0.05(H) 0.00 - 0.03 10*3/uL 04/03/2024 10:20 AM EST [facility] Lymphocyte # 3.00 1.00 - 4.75 10*3/uL 04/03/2024 10:20 AM EST [facility] Monocyte # 0.60 0.00 - 6.00 10*3/uL 04/03/2024 10:20 AM EST [facility] Eosinophil # 0.20 0.00 - 0.80 10*3/uL 04/03/2024 10:20 AM [facility] Basophil # <0.03 0.00 - 0.20 10*3/uL 04/03/2024 10:20 AM EST [facility] nRBC % 0.0 0 - 0 /100 WBCs 04/03/2024 10:20 AM [facility] nRBC # <0.01 0.00 - 0.13 10*3/uL 04/03/2024 10:20 AM [facility] Blood Structure of peripheral vein / Unknown Venipuncture / Unknown 04/03/2024 10:00 AM EST 04/03/2024 10:01 AM EST us Aga Infante MD LAB BLOOD ORDERABLES Final Res ult [facility] [address] [place] [address] [place] [address], [place] [phone] * (ABNORMAL) Comprehensive Metabolic Panel (04/03/2024 10:00 AM EST) NA 135(L) 136 - 145 mmol/L 04/03/2024 11:15 AM EST [facility] K 4.4 3.5 - 5.1 mmol/L 04/03/2024 11:15 AM EST [facility] Cl 102 98 - 109 mmol/L 04/03/2024 11:15 AM EST [facility] CO2 23 22 - 32 mmol/L 04/03/2024 11:15 AM EST [facility] Anion Gap 14 >=0 04/03/2024 11:15 AM EST [facility] Glucose 114(H) 60 - 99 mg/dL 04/03/2024 11:15 AM EST [facility] Creatinine 0.51 0.50 - 1.12 mg/dL 04/03/2024 11:15 AM EST [facility] Calcium 9.2 8.4 - 10.4 mg/dL 04/03/2024 11:15 AM EST [facility] Total Protein 7.6 6.6 - 8.7 g/dL 04/03/2024 11:15 AM EST [facility] Albumin 3.2(L) 3.5 - 5.0 g/dL 04/03/2024 11:15 AM EST [facility] Bilirubin, Total 0.3 0.2 - 1.2 mg/dL 04/03/2024 11:15 AM EST [facility] Alkaline Phosphatase 219(H) 40 - 129 U/L 04/03/2024 11:15 AM EST [facility] AST 24 0 - 33 U/L 04/03/2024 11:15 AM EST [facility] ALT 29 <=33 U/L 04/03/2024 11:15 AM EST [facility] BUN 20 6 - 20 mg/dL 04/03/2024 11:15 AM EST [facility] eGFR >90 >=60 mL/min/1. 73m2 04/03/2024 11:15 AM EST [facility] Comment:The estimated glomer ular filtration [...] - 4.2 g/dL 04/03/2024 11:15 AM EST [facility] A/G Ratio 0.7(L) 1.5 - 3.0 04/03/2024 11:15 AM EST [facility] Blood Structure of peripheral vein / Unknown Venipuncture / Unknown 04/03/2024 10:00 AM EST 04/03/2024 10:01 AM EST Aga Infante MD LAB BLOOD ORDERABLES Final Res ult Performing Organization Address City/State/[facility] Co de Phone Number [facility] [address] [facility] [address] [place] [address], documented in this encounter Visit Diagnoses Diagnosis Acute respiratory failure, unspecified whether with hypoxia or hypercapnia (HCC) No diagnosis documented in this encounter Care Teams Cryogenics Repairer Relationship Specialty Start Date End Date Jojo Seymoru [address] [place] [id number] PCP - General Internal Medicine 03/03/23 documented as of this encounter
--- OUTSIDE RECORDS SUMMARY | 2024-11-28 10:48 | XMS_ITS | Clinical Summary ---
Author Organization [employer] Address [address] [place] [address] [address] [place] [address] Care Team Providers Care Import Customs Clearing Agent Name Role Phone Jojo Seymour MD Primary Care Provider Allergies Active Allergy Reactions Criticality Noted Date Comments Pravastatin 10/15/2022 Other reaction(s): nausea, tired Medications Creon [id number] units capsule TAKE 1 CAPSULE BY MOUTH FOUR TIMES DAILY WITH MEALS AND/OR SNACKS 05/01/19 23 Active melatonin 5 MG tabletIndicatio ns:Primary insomnia 1 tab at bedtime 30 tablet 3 04/21/19 24 Active Blood Pressure kitIndications: Primary hypertension To use daily 1 kit 05/02/19 25 Active pancrelipase, Rcn-Wtqx-Sskk, (Creon) [id number] units capsuleIndicati ons:Hypertrigly ceridemia,Other chronic pancreatitis (CMS/HCC) Take 3 capsules (36,000 units of lipase) by mouth with breakfast, with lunch, and with evening meal. 120 capsule 05/02/19 25 Active FREESTYLE LITE test stripIndication s:Hyperglycemia Use to test blood sugar 1 times daily 100 each 12 05/02/19 25 026 Active Lancets miscIndications :Hyperglycemia Use to test blood sugar 1 times daily 100 each 05/02/19 25 Active Alcohol Swabs 70 % padsIndications :Hyperglycemia Use to test blood sugar 1 times daily 100 each 05/02/19 25 Active Blood Glucose Monitoring Suppl (FreeStyle [place] Lite) w/Device kitIndications: Hyperglycemia Use to test blood sugar 1 times daily 1 kit 05/02/19 25 Active metoprolol tartrate (Lopressor) 25 MG tabletIndicatio ns:Primary hypertension Take 1 tablet (25 mg) by mouth 2 times daily. 60 tablet 11 06/02/19 25 Active acetaminophen (Tylenol) 500 MG tabletIndicatio ns:Acute pain of both knees,Plantar fasciitis, bilateral Take 2 tablets (1,000 mg) by mouth every 6 (six) hours if needed for mild pain. 90 tablet 3 08/16/19 25 Active Ferrous Sulfate (iron) 325 (65 Fe) MG tabletIndicatio ns:Other chronic pancreatitis (CMS/HCC),Micro cytic anemia TAKE ONE TABLET EVERY MORNING WITH BREAKFAST 90 tablet 3 08/26/19 25 Active cholecalciferol VITAMIN D (Vitamin D-3) 50 MCG (2000 UT) capsuleIndicati ons:Acute midline low back pain without sciatica TAKE ONE CAPSULE EVERY DAY 90 capsule 3 08/26/19 25 Active pantoprazole (ProtoNix) 40 MG EC tabletIndicatio ns:Other chronic pancreatitis (CMS/HCC),Micro cytic anemia TAKE ONE TABLET EVERY MORNING WITH BREAKFAST 90 tablet 3 08/26/19 25 Active Ascorbic Acid (vitamin C) 500 MG tabletIndicatio ns:Other chronic pancreatitis (CMS/HCC) TAKE ONE TABLET EVERY DAY 90 tablet 3 08/26/19 25 Active Multiple Vitamins-Iron (Tab-A-Susan/Iro n/Beta Carotene) tabletIndicatio ns:Other chronic pancreatitis (CMS/HCC),Micro cytic anemia TAKE ONE TABLET EVERY DAY 90 tablet 3 08/26/19 25 Active metoclopramide (Reglan) 10 MG tabletIndicatio ns:Microcytic anemia TAKE ONE TABLET TWICE DAILY 60 tablet 1 09/12/19 25 Active Diclofenac Sodium 1 % gelIndications: Acute pain of both knees APPLY TOPICALLY TO AFFECTED AREA(s) TWO GRAMS, USE THREE TIMES DAILY DIRECTED 100 g 09/13/19 25 Active baclofen (Lioresal) 10 MG tabletIndicatio ns:Pain in both knees, unspecified chronicity Take 1 tablet (10 mg) by mouth if needed in the morning, at noon, and at bedtime for muscle spasms for up to 10 days. 30 tablet 11/19/19 25 Active baclofen (Lioresal) 10 MG tabletIndicatio ns:Acute midline low back pain without sciatica Take 1 tablet (10 mg) by mouth 3 times daily. 90 tablet 3 06/02/19 25 025 Discontinued(Re order (will not trigger notification to Pharmacy)) Active Problems Problem Noted Date Diagnosed Date Microcytic anemia 06/01/2024 Primary hypertension 05/02/2024 Postinflammatory hyperpigmentation 03/11/2023 Assessment & Plan (03/11/2023 11:47 AM EST): Patient that presented visit with concerns of hyperpigmentation on abdomen will be referred to Dermatology. Hypertriglyceridemia 11/14/2020 Other chronic pancreatitis 11/14/2020 Encounters Date Type Department Care Team Description 11/22/2024 Telephone [facility] MEDICINE [address] [place] [phone] Jojo Seymour MD 11/18/2024 9:40 AM EDT Office Visit [facility] WALK-IN [facility] [address], [place] [phone] Zac Dang MD Pain in both knees, unspecified chronicity (Primary Dx) 11/18/2024 Travel 10/26/2024 Telephone [facility] CH[facility] MED & PEDS [address] [place] [address] Jojo Seymour MD Nurse Triage 09/19/2024 Orders Only GENERIC EXTERNAL DATA DEPARTMENT Provider, Generic External Data 09/11/2024 Refill [facility] MED & PEDS [address] [place] [address] Jojo Seymour MD Acute pain of both knees 09/09/2024 Refill [facility] MEDICINE [address] [place] [address] Jojo Seymour MD Microcytic anemia from Last 3 Months Immunizations Immunization Administration Dates Next Due Hep B, adult 05/18/2017,02/25/2017 Influenza, IIV3, injectable 12/15/2019, 9 Moderna Covid-19 Vaccine 12+ 04/18/2021,08/22/19 21,07/24/2020 Family History Medical History Relation Name Comments Hyperlipidemia Father Hypertension Father Diabetes Mother Relation Name Status Comments Father Mother Social History Tobacco Use Types Packs/Day Years Used Date Smoking Tobacco: Never Passive Smoke Exposure: Never Smokeless Tobacco: Never Tobacco Cessation:Counseling Given: [...] Sign Reading Time Taken Comments Blood Pressure 134/89 11/18/2024 9:17 AM EDT Pulse 72 11/18/2024 9:17 AM EDT Temperature 36.3 C (97.4 F) 11/18/2024 9:17 AM EDT Respiratory Rate 20 11/18/2024 9:17 AM EDT Oxygen Saturation 98% 11/18/2024 9:17 AM EDT Inhaled Oxygen Concentration - - Weight 74.8 kg (165 lb) 11/18/2024 9:17 AM EDT Height 161.3 cm (5' 3.5 ) 11/18/2024 9:17 AM EDT Body Mass Index 28.77 11/18/2024 9:17 AM EDT Plan of Treatment Health Maintenance Due [...] Mammogram 11/29/2022 11/29/2020 COVID-19 Vaccine ( season) 2024 04/18/2021, 08/21/2020, 07/24/2020 Influenza Vaccine (#1) 2024 , 12/15/2019, 02/10/2019, Additional history exists Pap Smear 02/05/2025 02/05/2022 Depression Monitoring 02/15/2025 08/15/2024, 025 Alcohol/Substance Use Screening 08/15/2025 08/15/2024 SDOH Screening 08/15/2025 08/15/2024 Tobacco Screening 11/18/2025 11/18/2024 Zoster Vaccines (1 of 2) 2026 Cervical Cancer Screening 02/05/2027 HPV/Cotest 02/05/2027 02/05/2022, 01/20, 02/05/2022 Lipid Panel 09/19/2029 09/19/2024, 04/0 10/2024, 06/27/2024, Additional history exists RSV Patients and Patients [...] Name Priority Date/Time Associated Diagnosis Comments VITAMIN D 25-OH (D2 AND D3) Routine 09/19/2024 8:46 AM EDT LIPASE Routine 09/19/2024 8:46 AM EDT LIPID PANEL, STANDARD Routine 09/19/2024 8:46 AM EDT HEPATIC FUNCTION PANEL Routine 09/19/2024 8:46 AM EDT CBC Routine 09/19/2024 8:46 AM EDT ZZZ HISTORICAL HPV E6/E7 RFLX MEDINA 16 18/45 Routine 02/05/2022 2:44 PM EST PAP SMEAR Routine 02/05/2022 2:44 PM EST MAMMOGRAM GENERIC Routine 11/29/2020 10: 00 AM EDT from Last 3 Months or Most Recently Relevant to Health Maintenance Results * (ABNORMAL) VITAMIN D 25-OH (D2 AND D3) (09/19/2024 8:46 AM EDT) Vitamin D, 25-OH, D2 5 ng/mL [facility] Comment:This test was develo ped and its analytical performancecharacteristics have been determined by [employer] [place], [place]. It hasnot been cleared or approved by the U.S. Food and DrugAdministration. This assay has been validated pursuantto the CLIA regulations and is used for clinicalpurposes.THIS TEST WAS PERFORMED AT:[employer] [id number] [place] [address]TCSKVSGCAITLYN GUERRERO MD,PHD Vitamin D, 25-OH, D3 24 ng/mL [facility] Comment:This test was develo ped and its analytical performancecharacteristics have been determined by [employer] [place], [place]. It hasnot been cleared or approved by the U.S. Food and DrugAdministration. This assay has been validated pursuantto the CLIA regulations and is used for clinicalpurposes. Vitamin D, 25-OH, Total 29(A) 30 - 100 ng/mL [facility] Comment:Vitamin D, 25-Hydrox y reports concentrations of twocommon forms, 25-OHD2 and 25-OHD3. 25-OHD3 indicatesboth endogenous production and supplementation.25-OHD2 is an indicator of exogenous sources such asdiet or supplementation. Therapy is based onmeasurement of Total 25-OHD, with levels <20 ng/mLindicative of Vitamin D deficiency, while levelsbetween 20 ng/mL and 30 ng/mL suggest insufficiency.Optimal levels are > or = 30 ng/mL.For additional information, please refer tohttp://education.[employer]/faq/XMD214(This link is being provided for informational/educational purposes only.) 09/19/2024 8:46 AM EDT 09/19/2024 8:46 AM EDT us Generic External Data Provider LAB BLOOD ORDERAB LES Final Result [facility] [address] [place] [phone] * (ABNORMAL) CBC (09/19/2024 8:46 AM EDT) White Blood Count 8.5 4.8 - 10.8 X10*3/uL [facility] Red Blood Count 5.25 4.20 - 5.50 X10*6/uL [facility] Hemoglobin 14.2 12.0 - 16.0 g/dl [facility] Hematocrit 41.4 37.0 - 47.0 % [facility] Mean Corpuscular Volume 78.9(L) 80.0 - 98.0 fL [facility] Mean Corpuscular Hemoglobin 27.0 27.0 - 33.0 pg [facility] Mean Corpuscular HGB Conc 34.3 31.0 - 35.0 g/dl [facility] Red Cell Distribution Width 14.4 11.0 - 16.0 % [facility] Platelet Count 161 160 - 400 X10*3/uL [facility] Mean Platelet Volume 9.7 9.4 - 12.3 fL [facility] NRBC Pct Auto 0.0 0.0 - 0.2 /100WBC [facility] NRBC Abs Auto 0.000 0.0 - 0.012 X10*3/uL [facility] 09/19/2024 8:46 AM EDT 09/19/2024 8:46 AM EDT us Generic External Data Provider LAB BLOOD ORDERAB LES Final Result [facility] [address] [place] [phone] * Lipase (09/19/2024 8:46 AM EDT) Lipase 45 8 - 78 U/L [facility] 09/19/2024 8:46 AM EDT 09/19/2024 8:46 AM EDT us Generic External Data Provider LAB BLOOD ORDERAB LES Final Result Performing Organization Address [facility]/ZIP Co de Phone Number [facility] [address] [place] [phone] * (ABNORMAL) Hepatic Function Panel (09/19/2024 8:46 AM EDT) Bilirubin, Total 0.4 0.0 - 1.0 mg/dL [facility] Bilirubin, Direct 0.1 0.0 - 0.5 mg/dL [facility] Aspartate Amino Transferase 24 5 - 31 U/L [facility] Alanine Aminotransferase 25 0 - 31 U/L [facility] Total Protein 8.3(H) 6.5 - 8.0 g/dL [facility] Albumin Level 4.4 3.5 - 5.0 g/dL [facility] Alkaline Phosphatase 125(H) 39 - 117 U/L [facility] 09/19/2024 8:46 AM EDT 09/19/2024 8:46 AM EDT Generic External Data Provider LAB BLOOD ORDERAB LES Final Result Performing Organization Address [facility] Co de Phone Number [facility] [address] [place] [phone] * (ABNORMAL) Lipid Panel, Standard (09/19/2024 8:46 AM EDT) Triglycerides 845(H) <150 mg/dL [facility] Comment:Desirable Triglyceri de: less than 150 mg/dLBorderline High Triglyceride 150-199 mg/dLHigh Triglyceride: 200-499 mg/dLVery High Triglyceride: greater than or equal to 5OO mg/dL Cholesterol 274(H) <200 mg/dL [facility] Comment:Desirable Cholestero l: less than 200 mg/dLBorderline High Cholesterol: 200-239 mg/dLHigh Cholesterol: greater than 239 mg/dL LDL Cholesterol Calculated TNP <100 mg/dL [facility] Comment:Unable to calculate the LDL. The formula of Friedwald,Duarte, and Marquis is only valid if the triglycerides areless than 400 mg/dl. HDL Cholesterol 35(L) >40 mg/dL [facility] Comment:Desirable HDL: great er than 40 mg/dL Note: This HDL assay may give artificially low results in patients with liver disease. 09/19/2024 8:46 AM EDT 09/19/2024 8:46 AM EDT us Generic External Data Provider LAB BLOOD ORDERAB LES Final Result [facility] [address] [place] [phone] * (ABNORMAL) HPV E6/E7 RFLX MEDINA 16 18/45 (02/05/2022 2:44 PM EST) HPV 16 RNA DETECTED(A) NOT DETECTED [facility] HPV 18/45 RNA NOT DETECTED NOT DETECTED [facility] Comment: Methodology: Educational Psychology Teacher Mediated Amplification Cervical sources are required for HPV testing. If a vaginal source from a patient who has had a total hysterectomy with removal of cervix was submitted, please contact the testing laboratory for alternative testing options. THIS TEST WAS PERFORMED AT: [facility] [address] [place] [address],[facility] [place] [address] GUERO NIELSEN MD HPV mRNA E6/E7 rflx Detected(A) Not Detected [facility] Comment: Methodology: Educational Psychology Teacher-Mediated Amplification This assay detects E6/E7 viral messenger RNA (mRNA) from 14 high-risk HPV types (16,18,31,33,35,39,45,51,52,56,58,59,66,68). Cervical sources are required for HPV testing. If a vaginal source from a patient who has had a total hysterectomy with removal of cervix was submitted, please contact the testing laboratory for alternative testing options. For additional information, please refer to http://education.[employer]/faq/CBV169m3 (This link if provided for information/ educational purposes only.) THIS TEST WAS PERFORMED AT: [facility] [address] [place] [address],[place] [address] GUERO NIELSEN MD 02/05/2022 2:44 PM EST us Rusty Rodriguez MD HISTORICAL/NON ORDERABLE LABS Fi nal Result [facility] * Pap Smear (02/05/2022 2:44 PM EST) 02/05/2022 2:44 PM EST 02/06/2022 9:50 AM EST Narrative [facility] - 03/03/2022 12:04 PM EST ----- ------- Name: Windy Tai I Age/Sex: 46/F : 1975 Unit#: [id number] Attend Dr: Rusty Rodriguez MD Re02/05/22 Status: [facility]P [facility] ----- ------- SPEC : [id number] RECD: 02/06/22 STATUS: MALCOLM LEVY NUM: [id number] LOU: 02/05/22-[address] [facility] [address]: Rusty Rodriguez MD ENTERED: 02/06/22-1493 SP TYPE: Pap Smr OTHR DR: Jojo [...] RNA: Not Detected HPV testing performed by [facility], [place], [place]. See reference laboratory portion of the EMR for entire report. Clinical Information LMP: 02/10 Previous PAP test: 2008, WNL Material Received ThinPrep-Cervical Copies To: Jojo Seymour MD [address] [place] [phone] Rusty Rodriguez MD [address] [place] [address] Dr. Caceres [address] [place] [phone] ----- ------- Signed (signature on file) Aroldo Danielle MD 03/03/22 1204 ----- ------- END OF REPORT [facility] External Provider LAB CYT OLOGY ORDERABLES Final Result [facility] [address] [place] [phone] * Mammography Report 1 (11/29/2020 10:00 [...] Most Recently Relevant to Health Maintenance Insurance [place] [id number] C3 Care Teams Import Customs Clearing Agent Relationship Specialty Start Date End Date Jojo Seymour MD [address] [place] [phone] PCP - General Internal Medicine [facility]
--- OUTSIDE RECORDS SUMMARY | 2024-11-28 10:48 | XMS_ITS | Clinical Summary ---
Author Organization [facility] Address [address] [place] [address] Care Team Providers Care Cloth Weaver Name Role Phone Jojo Seymour MD Primary Care Provider Allergies No known active allergies Medications ondansetron [...] trach 12/10/23 for resp failure, intubated with [place] [facility] with no apparent issues at [facility] in ICU setting Difficult airway 12/10/2023 Difficult airway for intubation 12/10/2023 Overview (03/07/2024): DART: Recannulate vs intubate from above- both acceptable Severe malnutrition (HCC) Ac [place]; wt loss >7.5% x 3month, severe muscle [...] Hyponatremia 10/01/2023 Non-traumatic compartment syndrome of abdomen Family History Medical History Relation Name Comments Diabetes Father Hyperlipidemia Father Hypertension Father Diabetes Mother Hyperlipidemia Mother Hypertension Mother Relation Name Status Comments Father Mother Social History Tobacco Use Types Packs/Day Years Used Date Smoking Tobacco: Former Cigarettes Smokeless Tobacco: Never Tobacco Cessation:Counseling Given: Not Answered Alcohol Use Standard Drinks/Week Comments Not Currently 0 (1 standard drink = 0.6 oz pur e alcohol) [facility] Utilities Answer Date Recorded In the past 12 months has th e [employer], gas, oil, or water [employer] threatened to shut off services in your [...] place to sleep or slept in a intermediate (including now)? No 11/08/2023 Comments No Sex [...] 1997 Mammogram 2016 Colonoscopy 2021 COVID-19 Vaccine (4 - 2023-2 5 season) 2023 04/18/2021, 08/21/2020, 07/24/2020 Influenza Vaccine 10/20/2024 12/15/2019, 02/10/2019 Pneumococcal Vaccine: Pediatric (0-5 Years) and At-Risk Patients (6 to 49 Years) Aged Out No longer eligible b ased on patient's age to complete this topic Medical Devices Implanted Type Area Tuber Operator Device Identifier Shelf Expiration Date Model / Serial / Lot [id number] Kit Peg 20fr Push Evv Enfit - [id number] Implanted:Qty: 1 on 01/19/2024 by Iglesia Bhagat MD at [facility] Tube N/A: Stomach [employer] JENN [id number] 11/19/2024 [id number] / / [id number] 50-7308 Kit Peg Corflo-Ultra Enfit Polyurethane Silicone Jordan L36 - [id number] Implanted:Qty: 1 on 01/26/2024 by Kaiser Petersen MD at [facility] Tube [employer] [id number] / / [id number] Kit Jejunostomy 45cm 16fr Daysi Alejandro Radopq Feed Tube Internal - [id number] Implanted:Qty: 1 on 02/16/2024 by Andre ProceduralistMD at [facility] Tube N/A: Abdomen [employer] [id number] 07/13/2025 [id number] / / [id number] Explanted Type Area Tuber Operator Device Identifier Shelf Expiration Date Model / Serial / Lot [id number] Stent Pancreatic 20mm 10mm Axs Sterl Lf Disp Electrocautery - [id number] Implanted:Qty: 1 on 11/17/2023 by Gio Stewart MD at [facility] Explanted:Qty: 1 on 02/15/2024 by Robert Carrero MD at [facility] Stent N/A: Duodenum [employer] JENN [id number] 04/21/2024 [id number] / / [id number] Stent Biliary Zimmon 10fr 4cm Taper Tip Polyethe .035in 2 - [id number] Implanted:Qty: 1 on 02/15/2024 by Robert Carrero MD at [facility] Explanted:Qty: 1 on 02/29/2024 by Brad Beasley MD at [facility] Stent N/A: Bile Duct [employer] [id number] 11/01/2026 [id number] / / [id number] Additional Health Concerns Infection Onset Date 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 Meropenem resistant Contact Precautions required with each encounter. Patients will remain on Contact isolation indefinitely with the exception of clinical review by Infection Prevention and Infectious Disease/Epidemiology. 11/29/2023 11/29/2023 Insurance [facility] Advance Directives Documents on File Type Date Recorded Patient Buildings Painter Expl anation Advance Directive-Scan 01/05/2024 [facility] HEALTH CARE PROXY HH 01/05/24 * Full Code (Latest Code Status on File) Date Activated Date Inactivated Comments 11/06/2023 5:27 PM 04/06/2024 2:20 PM Question Answer Comments Decision Thoroughly Discussed with: Patient * Full Code Date Activated Date Inactivated Comments 10/01/2023 2:29 AM 11/06/2023 4:49 PM Healthcare Agents on File Name Relationship Healthcare Agent Relationship Communication [facility] Healthcare correspondence representative 1. Health Care Buildings Painter Care Teams Cloth Weaver Relationship Specialty Start Date End Date Jojo Seymour MD [address] [place] [phone] PCP - General General Medicine 10/01/23
--- OUTSIDE RECORDS SUMMARY | 2024-11-28 10:48 | XMS_ITS | Encounter Summary ---
Author Organization [employer] Address [address] [place] [address] Care Team Providers Care Leader Writer Name Role Phone Jjoo Seymour MD Primary Care Provider [phone] Reason for Visit * Reason Onset Date Comments FYI 04/21/2024 Encounter Details Date Type Department Care Team ([facility] st Contact Info) Description 04/21/2024 Telephone [facility] MEDICINE [address] [place] [address] Jojo Seymour MD [address] [place] [phone] FYI Social History Tobacco Use Types Packs/Day [...] 04/21/2024 8:33 AM EST Tc from Chyna (squadron worker) with [facility] informing pt was supposed to get discharge today 04/21/2024 , discharge date is now put on hold. If any questions please contact Chyna at [phone] documented in this encounter Plan of Treatment Not on file documented as of this encounter Visit Diagnoses Not on filedocumented in this encounter Care Teams Leader Writer Relationship Specialty Start Date End Date Jojo Seymour MD [address] [place] [phone] PCP - General Internal Medicine 12/03/20 [facility] 04/25/24 documented as of this encounter
--- OUTSIDE RECORDS SUMMARY | 2024-11-28 10:48 | XMS_ITS | Encounter Summary ---
Author Organization [facility] Address [address] [place] [address] Care Team Providers Care Superintendent Laundry Name Role Phone Jojo Seymour Primary Care Provider + [phone] Encounter Details Date Type Department Care Team (Late st Contact Info) Description 03/21/2024 Lab Requisition [facility] [address] [place] [address] Mo Starkey PA [address] [place] [address] Acute and chronic respiratory failure with hypoxia; [...] this encounter Procedures * Due to [place] state law, this organization might not be [...] this encounter Results * Due to [place] state law, this organization might not be sharing negative HIV tests. * (ABNORMAL) CBC Auto Differential (03/21/2024 9:33 AM EST) WBC 11.3(H) 4.8 - 10.8 10*3/uL 03/21/2024 9:42 AM EST [facility] RBC 3.63(L) 4.20 - 5.40 10*6/uL 03/21/2024 9:42 AM EST [facility] Hemoglobin 9.4(L) 11.7 - 15.5 g/dL 03/21/2024 9:42 AM EST [facility] Hematocrit 29.0(L) 35.7 - 45.8 % 03/21/2024 9:42 AM EST [facility] MCV 79.9(L) 81.0 - 99.0 fL 03/21/2024 9:42 AM EST [facility] MCH 25.9(L) 26.0 - 34.0 pg 03/21/2024 9:42 AM EST [facility] MCHC 32.4 31.0 - 36.0 g/dL 03/21/2024 9:42 AM EST [facility] RDW 14.7 12.0 - 15.0 % 03/21/2024 9:42 AM EST [facility] RDW Standard Deviation 43.5 36.4 - 46.3 fL 03/21/2024 9:42 AM EST [facility] Platelets 376 140 - 440 10*3/uL 03/21/2024 9:42 AM EST [facility] MPV 9.2(L) 9.4 - 12.3 fL 03/21/2024 9:42 AM EST [facility] Neutrophil % 65.8 50.0 - 75.0 % 03/21/2024 9:42 AM EST [facility] Immature Grans % 0.4 0.0 - 0.9 % 03/21/2024 9:42 AM EST [facility] Lymphocyte % 26.7 20.0 - 44.0 % 03/21/2024 9:42 AM EST [facility] Monocyte % 5.6 0.0 - 14.0 % 03/21/2024 9:42 AM EST [facility] Eosinophil % 1.2 0.0 - 5.0 % 03/21/2024 9:42 AM EST [facility] Basophil % 0.3 0.0 - 2.0 % 03/21/2024 9:42 AM EST [facility] Neutrophil # 7.41 1.80 - 7.70 10*3/uL 03/21/2024 9:42 AM EST [facility] Immature Grans # 0.04(H) 0.00 - 0.03 10*3/uL 03/21/2024 9:42 AM EST [facility] Lymphocyte # 3.00 1.00 - 4.75 10*3/uL 03/21/2024 9:42 AM EST [facility] Monocyte # 0.60 0.00 - 6.00 10*3/uL 03/21/2024 9:42 AM EST [facility] Eosinophil # 0.10 0.00 - 0.80 10*3/uL 03/21/2024 9:42 AM EST [facility] Basophil # <0.03 0.00 - 0.20 10*3/uL 03/21/2024 9:42 AM EST [facility] nRBC % 0.0 0 - 0 /100 WBCs 03/21/2024 9:42 AM EST [facility] nRBC # <0.01 0.00 - 0.13 10*3/uL 03/21/2024 9:42 AM EST [facility] Blood Structure of peripheral vein / Unknown Venipuncture / Unknown 03/21/2024 9:33 AM EST 03/21/2024 9:34 AM EST Mo NICOL[facility] LAB BLOOD ORDERABLES Final R esult Performing Organization Address [facility]/ZIP Co de Phone Number [facility] [address] [address], [place] [phone] * Hemoglobin A1c (03/21/2024 9:33 AM EST) Pathologist [facility] Hemoglobin A1c 4.7 4.0 - 5.7 % 03/21/2024 9:56 AM EST [facility] Estimated Average Glucose 88 mg/dL 03/21/2024 9:56 AM EST [facility] Blood Structure of peripheral vein / Unknown Venipuncture / Unknown 03/21/2024 9:33 AM EST 03/21/2024 9:34 AM EST Mo N[facility] BLOOD ORDERABLES Final R esult Performing Organization Address [facility] Co de Phone Number [facility] [address] [address], [place] [phone] * (ABNORMAL) Comprehensive Metabolic Panel (03/21/2024 9:33 AM EST) Pathologist [facility] NA 135(L) 136 - 145 mmol/L 03/21/2024 9:56 AM EST [facility] K 3.9 3.5 - 5.1 mmol/L 03/21/2024 9:56 AM EST [facility] Cl 95(L) 98 - 109 mmol/L 03/21/2024 9:56 AM EST [facility] CO2 27 22 - 32 mmol/L 03/21/2024 9:56 AM EST [facility] Anion Gap 17 >=0 03/21/2024 9:56 AM EST [facility] Glucose 103(H) 60 - 99 mg/dL 03/21/2024 9:56 AM EST [facility] Creatinine 0.58 0.50 - 1.12 mg/dL 03/21/2024 9:56 AM EST [facility] Calcium 9.7 8.4 - 10.4 mg/dL 03/21/2024 9:56 AM [facility] Total Protein 8.5 6.6 - 8.7 g/dL 03/21/2024 9:56 AM [facility] Albumin 3.3(L) 3.5 - 5.0 g/dL 03/21/2024 9:56 AM [facility] Bilirubin, Total 0.3 0.2 - 1.2 mg/dL 03/21/2024 9:56 AM [facility] Alkaline Phosphatase 306(H) 40 - 129 U/L 03/21/2024 9:56 AM [facility] AST 41(H) 0 - 33 U/L 03/21/2024 9:56 AM [facility] ALT 46(H) <=33 U/L 03/21/2024 9:56 AM [facility] BUN 31(H) 6 - 20 mg/dL 03/21/2024 9:56 AM [facility] eGFR >90 >=60 mL/min/1. 73m2 03/21/2024 9:56 AM [facility] Comment:The estimated glomer ular [...] 2.1 - 4.2 g/dL 03/21/2024 9:56 AM [facility] A/G Ratio 0.6(L) 1.5 - 3.0 03/21/2024 9:56 AM [facility] Blood Structure of peripheral vein / Unknown Venipuncture / Unknown 03/21/2024 9:33 AM EST 03/21/2024 9:34 AM EST us Mo NIC[facility] BLOOD ORDERABLES Final R esult [facility] [address] [facility] [address] [place] [address], [place] [phone] documented in this encounter Visit Diagnoses Diagnosis Acute and chronic respiratory failure with hypoxia (HCC) No diagnosis documented in this encounter Care Teams Superintendent Laundry Relationship Specialty Start Date End Date Jojo Seymour [address] [place] [address] PCP - General Internal Medicine 03/03/23 documented as of this encounter
--- OUTSIDE RECORDS SUMMARY | 2024-11-28 10:48 | XMS_ITS | Encounter Summary ---
Author Organization [facility] Address [address] [place] [address] Care Team Providers Care Office Clinician Name Role Phone Jojo Seymour Primary Care Provider + [phone] Encounter Details Date Type Department Care Team (Late st Contact Info) Description 04/07/2024 Lab Requisition [facility] [address] [place] [address] Natalia Oropeza MD [address] [place] [address] Acute respiratory failure, unspecified whether with hypoxia [...] of this encounter Procedures * Due to [place] state law, this organization might not be [...] in this encounter Results * Due to [place] state law, this organization might not be sharing negative HIV tests. * (ABNORMAL) CBC Auto Differential (04/07/2024 10:04 AM EST) WBC 8.8 4.8 - 10.8 10*3/uL 04/07/2024 10:22 AM EST [facility] RBC 3.74(L) 4.20 - 5.40 10*6/uL 04/07/2024 10:22 AM [facility] Hemoglobin 9.4(L) 11.7 - 15.5 g/dL 04/07/2024 10:22 AM [facility] Hematocrit 29.1(L) 35.7 - 45.8 % 04/07/2024 10:22 AM [facility] MCV 77.8(L) 81.0 - 99.0 fL 04/07/2024 10:22 AM [facility] MCH 25.1(L) 26.0 - 34.0 pg 04/07/2024 10:22 AM [facility] MCHC 32.3 31.0 - 36.0 g/dL 04/07/2024 10:22 AM [facility] RDW 14.6 12.0 - 15.0 % 04/07/2024 10:22 AM [facility] RDW Standard Deviation 41.0 36.4 - 46.3 fL 04/07/2024 10:22 AM [facility] Platelets 310 140 - 440 10*3/uL 04/07/2024 10:22 AM [facility] MPV 9.4 9.4 - 12.3 fL 04/07/2024 10:22 AM [facility] Neutrophil % 58.6 50.0 - 75.0 % 04/07/2024 10:22 AM [facility] Immature Grans % 0.3 0.0 - 0.9 % 04/07/2024 10:22 AM [facility] Lymphocyte % 34.3 20.0 - 44.0 % 04/07/2024 10:22 AM EST [facility] Monocyte % 4.8 0.0 - 14.0 % 04/07/2024 10:22 AM EST [facility] Eosinophil % 1.7 0.0 - 5.0 % 04/07/2024 10:22 AM EST [facility] Basophil % 0.3 0.0 - 2.0 % 04/07/2024 10:22 AM EST [facility] Neutrophil # 5.14 1.80 - 7.70 10*3/uL 04/07/2024 10:22 AM EST [facility] Immature Grans # 0.03 0.00 - 0.03 10*3/uL 04/07/2024 10:22 AM EST [facility] Lymphocyte # 3.00 1.00 - 4.75 10*3/uL 04/07/2024 10:22 AM EST [facility] Monocyte # 0.40 0.00 - 6.00 10*3/uL 04/07/2024 10:22 AM EST [facility] Eosinophil # 0.20 0.00 - 0.80 10*3/uL 04/07/2024 10:22 AM EST [facility] Basophil # <0.03 0.00 - 0.20 10*3/uL 04/07/2024 10:22 AM EST [facility] nRBC % 0.0 0 - 0 /100 WBCs 04/07/2024 10:22 AM EST [facility] nRBC # <0.01 0.00 - 0.13 10*3/uL 04/07/2024 10:22 AM EST [facility] Blood Structure of peripheral vein / Unknown Venipuncture / Unknown 04/07/2024 10:04 AM EST 04/07/2024 10:04 AM EST us Natalia Oropeza MD LAB BLOOD ORDERABLES Final Res ult Performing Organization Address City/State/[facility] Co de Phone Number [facility] [address] [place] [address] [address] [place] [address], [place] [phone] * (ABNORMAL) Comprehensive Metabolic Panel (04/07/2024 10:04 AM EST) NA 134(L) 136 - 145 mmol/L 04/07/2024 11:00 AM EST [facility] K 4.1 3.5 - 5.1 mmol/L 04/07/2024 11:00 AM EST [facility] Cl 97(L) 98 - 109 mmol/L 04/07/2024 11:00 AM EST [facility] CO2 23 22 - 32 mmol/L 04/07/2024 11:00 AM [facility] Anion Gap 18 >=0 04/07/2024 11:00 AM [facility] Glucose 92 60 - 99 mg/dL 04/07/2024 11:00 AM [facility] Creatinine 0.60 0.50 - 1.12 mg/dL 04/07/2024 11:00 AM EST [facility] Calcium 9.7 8.4 - 10.4 mg/dL 04/07/2024 11:00 AM [facility] Total Protein 8.3 6.6 - 8.7 g/dL 04/07/2024 11:00 AM [facility] Albumin 3.4(L) 3.5 - 5.0 g/dL 04/07/2024 11:00 AM [facility] Bilirubin, Total 0.3 0.2 - 1.2 mg/dL 04/07/2024 11:00 AM EST [facility] Alkaline Phosphatase 204(H) 40 - 129 U/L 04/07/2024 11:00 AM [facility] AST 32 0 - 33 U/L 04/07/2024 11:00 AM [facility] ALT 36(H) <=33 U/L 04/07/2024 11:00 AM [facility] BUN 19 6 - 20 mg/dL 04/07/2024 11:00 AM EST [facility] eGFR >90 >=60 mL/min/1. 73m2 04/07/2024 11:00 AM EST [facility] Comment:The estimated glomer ular filtration [...] - 4.2 g/dL 04/07/2024 11:00 AM EST [facility] A/G Ratio 0.7(L) 1.5 - 3.0 04/07/2024 11:00 AM EST [facility] Blood Structure of peripheral vein / Unknown Venipuncture / Unknown 04/07/2024 10:04 AM EST 04/07/2024 10:04 AM EST us Natalia Oropeza MD LAB BLOOD ORDERABLES Final Res ult Performing Organization Address City/State/[facility] Co de Phone Number [facility] [address] [facility] [address] [place] [address], documented in this encounter Visit Diagnoses Diagnosis Acute respiratory failure, unspecified whether with hypoxia or hypercapnia (HCC) No diagnosis documented in this encounter Care Teams Office Clinician Relationship Specialty Start Date End Date Jojo Seymour [address] [place] [id number] PCP - General Internal Medicine 03/03/23 documented as of this encounter
--- OUTSIDE RECORDS SUMMARY | 2024-11-28 10:48 | XMS_ITS | Encounter Summary ---
Author Organization [employer] Address [address] [place] [id number] Care Team Providers Care Modeler Name Role Phone Jojo Seymour MD Primary Care Provider [phone] Encounter Details Date Type Department Care Team ([facility] st Contact Info) Description 10/14/2022 Telephone [facility] [address] [place] [address] Jojo Seymour MD [address] [place] [address] Social History Tobacco Use Types Packs/Day Years [...] on filedocumented in this encounter Care Teams Modeler Relationship Specialty Start Date End Date Jojo Seymour MD [address] [place] [address] PCP - General Internal Medicine 12/03/20 [facility] 04/25/24 documented as of this encounter
--- OUTSIDE RECORDS SUMMARY | 2024-11-28 10:49 | XMS_ITS | Clinical Summary ---
Author Organization [facility] Facility Address [address] [address] Care Team Providers Care Aerodynamicist Name Role Phone Jojo Seymour MD Primary Care Provider [phone] Social History Tobacco Use Types Packs/Day Years [...] - 19+ 3-dose series) 1995 Influenza Vaccine (#1) 2024 Pneumococcal Vaccine: Peds ( 0 to 5 Years) and At-Risk Patients (6 to 49 Years) Aged Out No longer eligible b ased on patient's age to complete this topic [place] Care Teams Aerodynamicist Relationship Specialty Start Date End Date Jojo Seymour MD [address] [place] [id number] PCP - General Internal Medicine 10/19/22
== END 2024-11-28 09:56 | disposition home or self-care (01) ==
LOC: HO.HGI 09:24
PROVIDERS: PCP Internal Medicine; Visit Provider Nurse Practitioner Family
DX: Z87.19 Personal history of other diseases of the digestive system (principal); E78.1 Pure hyperglyceridemia; E78.5 Hyperlipidemia, unspecified; R14.0 Abdominal distension (gaseous)
CPT/HCPCS: 99214

== ENCOUNTER 2024-11-28 09:23 | Outpatient (REF) | payer MEDICAID, SELFPAY ==
[2024-11-28 11:38] LABS: Alanine Aminotransferase 27 U/L (0-31); Albumin Level 4.1 g/dL (3.5-5.0); Alkaline Phosphatase 120 U/L (39-117); Aspartate Amino Transferase 25 U/L (5-31); Lipase 42 U/L (8-78); Total Protein 8.1 g/dL (6.5-8.0)
== END 2024-11-28 09:24 | disposition home or self-care (01) ==
LOC: HO.LAB 09:23
PROVIDERS: PCP Internal Medicine; Visit Provider Nurse Practitioner Family
DX: R14.0 Abdominal distension (gaseous) (principal); R10.9 Unspecified abdominal pain; R79.89 Other specified abnormal findings of blood chemistry; R74.01 Elevation of levels of liver transaminase levels; E78.1 Pure hyperglyceridemia; E78.5 Hyperlipidemia, unspecified; Z87.19 Personal history of other diseases of the digestive system
CPT/HCPCS: 36415; 80076; 81256; 83690; 99212

== ENCOUNTER 2025-02-07 08:51 | Outpatient (AMB) | payer MEDICAID, SELFPAY ==
--- NOTE | 2025-02-07 08:56 | A.OFFVIS_ITS ---
Vital Signs 02/07/25 08:58 Height 5 ft 2 in Weight 168 lb BMI 30.7 Intake Visit Reasons: Left knee pain and giving way Intake Note: Windy is a 49 year old female who presents with complaints of progressively worsening left knee pain and giving way. The patient also has intermittent discomfort in her right knee. At this point her right knee discomfort is tolerable to her. The patient describes her left knee pain as sharp and severe in nature. Most of the pain is along the medial aspect of her left knee. Her symptoms have gotten worse over the last 9 months in spite of continued non operative treatments. She has failed the last 6 weeks of conservative treatment which has included Tylenol, anti-inflammatory medicines, a home exercise program and physical therapy exercises. She states that her left knee will give out several times per day. Allergies pravastatin Adverse Reaction (Unknown, Verified 02/07/25 09:03) nausea, tired Medication List - Last Reconciled 02/07/25 by Felice Castañeda MD amlodipine 5 mg PO DAILY ascorbic acid (vitamin C) (Vitamin C) 500 mg PO DAILY cholecalciferol (vitamin D3) 50 mcg PO DAILY fenofibrate micronized 200 mg PO DAILY ferrous sulfate 325 mg PO QAM ibuprofen 400 mg PO Q6H PRN urdkwj-dayvngtn-lkyonxy (pork) 12,000-38,000 -60,000 unit (Creon) 1 cap PO QID lisinopril 5 mg DAILY melatonin 5 mg PO BEDTIME metoclopramide HCl 10 mg PO BID multivit-iron sulf-folic acid 15 mg iron- 400 mcg (Tab-A-Susan Multivitamin w- iron) 1 tab PO DAILY pantoprazole 40 mg PO QAM zinc sulfate 50 mg PO DAILY [facility] Medical History Acute lactic acidosis Metabolic acidosis Anemia (~08/2019) Hyperlipidemia Hx of pancreatitis Hypertriglyceridemia Chronic idiopathic constipation Surgical History Hx of colonoscopy History of esophagogastroduodenoscopy (EGD) H/O tubal ligation S/P cholecystectomy Family History Father Hypertension Dyslipidemia Pancreatitis, recurrent Mother Hypertension Diabetes Acute CVA (cerebrovascular accident) Maternal Grandmother Uterine cancer Renal failure Maternal Grandfather CAD (coronary artery disease) Maternal Uncle Myocardial infarction Social History (Updated 02/07/25 @ 09:04 by NOEMÍ Haque) Household Members: Spouse and Children Housing: House Do you presently have visiting nurse or other home services: No Alcohol intake: former Comment: sleeping Patient Tobacco Use Status: Never used Tobacco service: No Current occupational status: unemployed Physical Exam Vital Signs: BMI result Body Mass Index 30.7 Const Other: Well-nourished well-developed very friendly female awake alert and oriented x3 in no acute distress Extrem Other: Left knee examination shows a minimal effusion, minimal crepitus with range of motion, tenderness along her medial joint line, positive Opal's test, no instability Results Reviewed Results Reviewed: Standing full weight-bearing x-rays of the patient's bilateral knee show mild diffuse joint space narrowing, no acute bony abnormalities Assessment & Plan Assessment & Plan (1) Tear of medial meniscus of left knee: Code(s): S83.242A - Other tear of medial meniscus, current injury, left knee, initial encounter Category: Medical Plan Ms. Tai presents with progressively worsening left knee pain and mechanical symptoms most likely due to a medial meniscus tear. Thus, I will send the patient for an MRI of her left knee for further evaluation. I will see her back once the MRI is completed to discuss the findings and treatment options. Feel free to call me at any time should questions regarding her orthopedic management arise. Thank you very much for asking me to see this very friendly patient. I spent 20 minutes in reviewing the patient's records and imaging studies, seeing the patient and documenting in the medical record. Orders: Orders MR knee LT wo con 02/08/25 S83.242A - Other tear of medial meniscus, current injury, left knee, initial encounter Coding Level of Care Code New Pt Level 3 (48768) Complex EM visit Add On G2211 Diagnoses Tear of medial meniscus of left knee S83.242A
[2025-02-07 08:58] VITALS: BMI 30.7
--- OUTSIDE RECORDS SUMMARY | 2025-02-07 16:29 | XMS_ITS | Encounter Summary ---
Author Organization [facility] Address [address] [place] [address] Care Team Providers Care Bight Maker Name Role Phone Jojo Seymour Primary Care Provider + [phone] Encounter Details Date Type Department Care Team (Late st Contact Info) Description 03/27/2024 Lab Requisition [facility] [address] [place] [address] Mo Starkey PA [address] [place] [address] Acute respiratory failure, unspecified whether with hypoxia [...] of this encounter Procedures * Due to [place] state law, this organization might not be [...] in this encounter Results * Due to [place] state law, this organization might not be sharing negative HIV tests. * (ABNORMAL) CBC Auto Differential (03/27/2024 10:03 AM EST) WBC 12.2(H) 4.8 - 10.8 10*3/uL 03/27/2024 10:21 AM [facility] RBC 3.60(L) 4.20 - 5.40 10*6/uL 03/27/2024 10:21 AM [facility] Hemoglobin 9.3(L) 11.7 - 15.5 g/dL 03/27/2024 10:21 AM [facility] Hematocrit 28.9(L) 35.7 - 45.8 % 03/27/2024 10:21 AM [facility] MCV 80.3(L) 81.0 - 99.0 fL 03/27/2024 10:21 AM [facility] MCH 25.8(L) 26.0 - 34.0 pg 03/27/2024 10:21 AM [facility] MCHC 32.2 31.0 - 36.0 g/dL 03/27/2024 10:21 AM [facility] RDW 14.7 12.0 - 15.0 % 03/27/2024 10:21 AM [facility] RDW Standard Deviation 43.6 36.4 - 46.3 fL 03/27/2024 10:21 AM [facility] Platelets 375 140 - 440 10*3/uL 03/27/2024 10:21 AM [facility] MPV 9.2(L) 9.4 - 12.3 fL 03/27/2024 10:21 AM [facility] Neutrophil % 67.4 50.0 - 75.0 % 03/27/2024 10:21 AM [facility] Immature Grans % 0.3 0.0 - 0.9 % 03/27/2024 10:21 AM EST [facility] Lymphocyte % 25.3 20.0 - 44.0 % 03/27/2024 10:21 AM EST [facility] Monocyte % 4.7 0.0 - 14.0 % 03/27/2024 10:21 AM [facility] Eosinophil % 2.0 0.0 - 5.0 % 03/27/2024 10:21 AM EST [facility] Basophil % 0.3 0.0 - 2.0 % 03/27/2024 10:21 AM EST [facility] Neutrophil # 8.22(H) 1.80 - 7.70 10*3/uL 03/27/2024 10:21 AM EST [facility] Immature Grans # 0.04(H) 0.00 - 0.03 10*3/uL 03/27/2024 10:21 AM [facility] Lymphocyte # 3.10 1.00 - 4.75 10*3/uL 03/27/2024 10:21 AM EST [facility] Monocyte # 0.60 0.00 - 6.00 10*3/uL 03/27/2024 10:21 AM EST [facility] Eosinophil # 0.20 0.00 - 0.80 10*3/uL 03/27/2024 10:21 AM [facility] Basophil # <0.03 0.00 - 0.20 10*3/uL 03/27/2024 10:21 AM EST [facility] nRBC % 0.0 0 - 0 /100 WBCs 03/27/2024 10:21 AM [facility] nRBC # <0.01 0.00 - 0.13 10*3/uL 03/27/2024 10:21 AM [facility] Blood Structure of peripheral vein / Unknown Venipuncture / Unknown 03/27/2024 10:03 AM EST 03/27/2024 10:03 AM EST Mo [facility] BLOOD ORDERABLES Final R esult [facility] [address] [place] [address], [place] [phone] * (ABNORMAL) Comprehensive Metabolic Panel (03/27/2024 10:03 AM EST) NA 134(L) 136 - 145 mmol/L 03/27/2024 10:44 AM EST [facility] K 4.5 3.5 - 5.1 mmol/L 03/27/2024 10:44 AM EST [facility] Cl 97(L) 98 - 109 mmol/L 03/27/2024 10:44 AM EST [facility] CO2 27 22 - 32 mmol/L 03/27/2024 10:44 AM EST [facility] Anion Gap 15 >=0 03/27/2024 10:44 AM EST [facility] Glucose 123(H) 60 - 99 mg/dL 03/27/2024 10:44 AM EST [facility] Creatinine 0.50 0.50 - 1.12 mg/dL 03/27/2024 10:44 AM EST [facility] Calcium 9.6 8.4 - 10.4 mg/dL 03/27/2024 10:44 AM EST [facility] Total Protein 8.1 6.6 - 8.7 g/dL 03/27/2024 10:44 AM EST [facility] Albumin 3.3(L) 3.5 - 5.0 g/dL 03/27/2024 10:44 AM EST [facility] Bilirubin, Total 0.3 0.2 - 1.2 mg/dL 03/27/2024 10:44 AM EST [facility] Alkaline Phosphatase 246(H) 40 - 129 U/L 03/27/2024 10:44 AM EST [facility] AST 23 0 - 33 U/L 03/27/2024 10:44 AM EST [facility] ALT 25 <=33 U/L 03/27/2024 10:44 AM EST [facility] BUN 24(H) 6 - 20 mg/dL 03/27/2024 10:44 AM EST [facility] eGFR >90 >=60 mL/min/1. 73m2 03/27/2024 10:44 AM EST [facility] Comment:The estimated glomer ular filtration [...] - 4.2 g/dL 03/27/2024 10:44 AM EST [facility] A/G Ratio 0.7(L) 1.5 - 3.0 03/27/2024 10:44 AM EST [facility] Blood Structure of peripheral vein / Unknown Venipuncture / Unknown 03/27/2024 10:03 AM EST 03/27/2024 10:03 AM EST Mo [facility] BLOOD ORDERABLES Final R esult [facility] [address] [facility] [address] [place] [address], documented in this encounter Visit Diagnoses Diagnosis Acute respiratory failure, unspecified whether with hypoxia or hypercapnia No diagnosis documented in this encounter Care Teams Bight Maker Relationship Specialty Start Date End Date Jojo Seymour [address] [place] [id number] PCP - General Internal Medicine 03/03/23 documented as of this encounter
--- OUTSIDE RECORDS SUMMARY | 2025-02-07 16:29 | XMS_ITS | Encounter Summary ---
Author Organization [facility] Address [address] [place] [address] Care Team Providers Care Speech Therapist Early Intervention Name Role Phone Jojo Seymour Primary Care Provider + [phone] Encounter Details Date Type Department Care Team (Late st Contact Info) Description 04/03/2024 Lab Requisition [facility] [address] [place] [address] Aga Infante MD [address] [place] [address] [phone] Acute respiratory failure, unspecified whether with hypoxia [...] of this encounter Procedures * Due to [place] state law, this organization might not be [...] in this encounter Results * Due to [place] state law, this organization might not be sharing negative HIV tests. * (ABNORMAL) CBC Auto Differential (04/03/2024 10:00 AM EST) WBC 11.1(H) 4.8 - 10.8 10*3/uL 04/03/2024 10:20 AM EST [facility] RBC 3.47(L) 4.20 - 5.40 10*6/uL 04/03/2024 10:20 AM EST [facility] Hemoglobin 8.7(L) 11.7 - 15.5 g/dL 04/03/2024 10:20 AM [facility] Hematocrit 27.1(L) 35.7 - 45.8 % 04/03/2024 10:20 AM EST [facility] MCV 78.1(L) 81.0 - 99.0 fL 04/03/2024 10:20 AM [facility] MCH 25.1(L) 26.0 - 34.0 pg 04/03/2024 10:20 AM EST [facility] MCHC 32.1 31.0 - 36.0 g/dL 04/03/2024 10:20 AM EST [facility] RDW 14.6 12.0 - 15.0 % 04/03/2024 10:20 AM EST [facility] RDW Standard Deviation 41.7 36.4 - 46.3 fL 04/03/2024 10:20 AM EST [facility] Platelets 306 140 - 440 10*3/uL 04/03/2024 10:20 AM EST [facility] MPV 9.2(L) 9.4 - 12.3 fL 04/03/2024 10:20 AM [facility] Neutrophil % 65.4 50.0 - 75.0 % 04/03/2024 10:20 AM EST [facility] Immature Grans % 0.5 0.0 - 0.9 % 04/03/2024 10:20 AM EST [facility] Lymphocyte % 27.1 20.0 - 44.0 % 04/03/2024 10:20 AM EST [facility] Monocyte % 5.2 0.0 - 14.0 % 04/03/2024 10:20 AM EST [facility] Eosinophil % 1.4 0.0 - 5.0 % 04/03/2024 10:20 AM EST [facility] Basophil % 0.4 0.0 - 2.0 % 04/03/2024 10:20 AM EST [facility] Neutrophil # 7.24 1.80 - 7.70 10*3/uL 04/03/2024 10:20 AM EST [facility] Immature Grans # 0.05(H) 0.00 - 0.03 10*3/uL 04/03/2024 10:20 AM EST [facility] Lymphocyte # 3.00 1.00 - 4.75 10*3/uL 04/03/2024 10:20 AM EST [facility] Monocyte # 0.60 0.00 - 6.00 10*3/uL 04/03/2024 10:20 AM EST [facility] Eosinophil # 0.20 0.00 - 0.80 10*3/uL 04/03/2024 10:20 AM [facility] Basophil # <0.03 0.00 - 0.20 10*3/uL 04/03/2024 10:20 AM EST [facility] nRBC % 0.0 0 - 0 /100 WBCs 04/03/2024 10:20 AM [facility] nRBC # <0.01 0.00 - 0.13 10*3/uL 04/03/2024 10:20 AM [facility] Blood Structure of peripheral vein / Unknown Venipuncture / Unknown 04/03/2024 10:00 AM EST 04/03/2024 10:01 AM EST us Aga Infante MD LAB BLOOD ORDERABLES Final Res ult [facility] [address] [place] [address], [place] [phone] * (ABNORMAL) Comprehensive Metabolic Panel (04/03/2024 10:00 AM EST) NA 135(L) 136 - 145 mmol/L 04/03/2024 11:15 AM EST [facility] K 4.4 3.5 - 5.1 mmol/L 04/03/2024 11:15 AM EST [facility] Cl 102 98 - 109 mmol/L 04/03/2024 11:15 AM EST [facility] CO2 23 22 - 32 mmol/L 04/03/2024 11:15 AM EST [facility] Anion Gap 14 >=0 04/03/2024 11:15 AM EST [facility] Glucose 114(H) 60 - 99 mg/dL 04/03/2024 11:15 AM EST [facility] Creatinine 0.51 0.50 - 1.12 mg/dL 04/03/2024 11:15 AM EST [facility] Calcium 9.2 8.4 - 10.4 mg/dL 04/03/2024 11:15 AM EST [facility] Total Protein 7.6 6.6 - 8.7 g/dL 04/03/2024 11:15 AM EST [facility] Albumin 3.2(L) 3.5 - 5.0 g/dL 04/03/2024 11:15 AM EST [facility] Bilirubin, Total 0.3 0.2 - 1.2 mg/dL 04/03/2024 11:15 AM EST [facility] Alkaline Phosphatase 219(H) 40 - 129 U/L 04/03/2024 11:15 AM EST [facility] AST 24 0 - 33 U/L 04/03/2024 11:15 AM EST [facility] ALT 29 <=33 U/L 04/03/2024 11:15 AM EST [facility] BUN 20 6 - 20 mg/dL 04/03/2024 11:15 AM EST [facility] eGFR >90 >=60 mL/min/1. 73m2 04/03/2024 11:15 AM EST [facility] Comment:The estimated glomer ular [...] - 4.2 g/dL 04/03/2024 11:15 AM EST [facility] A/G Ratio 0.7(L) 1.5 - 3.0 04/03/2024 11:15 AM EST [facility] Blood Structure of peripheral vein / Unknown Venipuncture / Unknown 04/03/2024 10:00 AM EST 04/03/2024 10:01 AM EST Aga Infante MD LAB BLOOD ORDERABLES Final Res ult Performing Organization Address City/State/[facility] Co de Phone Number [facility] [address] [facility] [address] [place] [address], documented in this encounter Visit Diagnoses Diagnosis Acute respiratory failure, unspecified whether with hypoxia or hypercapnia No diagnosis documented in this encounter Care Teams Speech Therapist Early Intervention Relationship Specialty Start Date End Date Jojo Seymour [address] [place] [address] PCP - General Internal Medicine 03/03/23 documented as of this encounter
--- OUTSIDE RECORDS SUMMARY | 2025-02-07 16:29 | XMS_ITS | Encounter Summary ---
Author Organization [employer] Address [address] [facility] 7 [place] [address] Care Team Providers Care Digital Media Designer Name Role Phone Jojo Seymour MD Primary Care Provider [phone] Encounter Details Date Type Department Care Team (Late st Contact Info) Description 06/01/2024 Orders Only [facility] [address] [place] [address] Jojo Seymour MD [address] [place] [address] Other chronic pancreatitis (CMS/HCC) (Primary Dx); Acute [...] encounter Visit Diagnoses Diagnosis Other chronic pancreatitis (HCC)- Primary Acute midline low back pain without sciatica Primary hypertension Unspecified essential hypertension Nausea Nausea alone Microcytic anemia Unspecified iron deficiency anemia documented in this encounter Additional Health Concerns Assessment Noted Time PHQ-9 Depression Total Score: 4 05/02/19 25 1:23 PM EST documented as of this encounter Care Teams Digital Media Designer Relationship Specialty Start Date End Date Jojo Seymour MD [address] [place] [address] PCP - General Internal Medicine 12/03/20 Julio NERI 04/25/24 documented as of this encounter
--- OUTSIDE RECORDS SUMMARY | 2025-02-07 16:29 | XMS_ITS | Encounter Summary ---
Author Organization [facility] Address [address] [place] [address] Care Team Providers Care Social Work Program Coordinator Name Role Phone Jojo Seymour Primary Care Provider + [phone] Encounter Details Date Type Department Care Team (Late st Contact Info) Description 04/17/2024 Lab Requisition [facility] [address] [place] [address] Mo Starkey PA [address] [place] [address] Acute respiratory failure, unspecified whether with hypoxia [...] (ABNORMAL) Lipase (04/17/2024 12:44 PM EST) Pathologist [facility] Lipase 135(H) 13 - 60 U/L 04/18/2024 10:14 AM EST [facility] Blood Structure of peripheral vein / Unknown Venipuncture / Unknown 04/17/2024 12:44 PM EST 04/17/2024 12:44 PM EST Mo NICOLAS LAB BLOOD ORDERABLES Final R esult Performing Organization Address City/State/[facility] Co de Phone Number [facility] [address] [place] [address], [place] [phone] * (ABNORMAL) CBC Auto Differential (04/17/2024 12:44 PM EST) [facility] WBC 10.4 4.8 - 10.8 10*3/uL 04/17/2024 1:12 PM EST [facility] RBC 3.99(L) 4.20 - 5.40 10*6/uL 04/17/2024 1:12 PM EST [facility] Hemoglobin 10.0(L) 11.7 - 15.5 g/dL 04/17/2024 1:12 PM EST [facility] Hematocrit 31.1(L) 35.7 - 45.8 % 04/17/2024 1:12 PM EST [facility] MCV 77.9(L) 81.0 - 99.0 fL 04/17/2024 1:12 PM EST [facility] MCH 25.1(L) 26.0 - 34.0 pg 04/17/2024 1:12 PM EST [facility] MCHC 32.2 31.0 - 36.0 g/dL 04/17/2024 1:12 PM EST [facility] RDW 15.3(H) 12.0 - 15.0 % 04/17/2024 1:12 PM EST [facility] RDW Standard Deviation 43.8 36.4 - 46.3 fL 04/17/2024 1:12 PM EST [facility] Platelets 278 140 - 440 10*3/uL 04/17/2024 1:12 PM [facility] MPV 9.9 9.4 - 12.3 fL 04/17/2024 1:12 PM EST [facility] Neutrophil % 65.1 50.0 - 75.0 % 04/17/2024 1:12 PM [facility] Immature Grans % 0.4 0.0 - 0.9 % 04/17/2024 1:12 PM EST [facility] Lymphocyte % 27.9 20.0 - 44.0 % 04/17/2024 1:12 PM [facility] Monocyte % 4.5 0.0 - 14.0 % 04/17/2024 1:12 PM EST [facility] Eosinophil % 1.8 0.0 - 5.0 % 04/17/2024 1:12 PM EST [facility] Basophil % 0.3 0.0 - 2.0 % 04/17/2024 1:12 PM EST [facility] Neutrophil # 6.74 1.80 - 7.70 10*3/uL 04/17/2024 1:12 PM EST [facility] Immature Grans # 0.04(H) 0.00 - 0.03 10*3/uL 04/17/2024 1:12 PM EST [facility] Lymphocyte # 2.90 1.00 - 4.75 10*3/uL 04/17/2024 1:12 PM EST [facility] Monocyte # 0.50 0.00 - 0.60 10*3/uL 04/17/2024 1:12 PM EST [facility] Eosinophil # 0.20 0.00 - 0.80 10*3/uL 04/17/2024 1:12 PM EST [facility] Basophil # <0.03 0.00 - 0.20 10*3/uL 04/17/2024 1:12 PM EST [facility] nRBC % 0.0 0 - 0 /100 WBCs 04/17/2024 1:12 PM EST [facility] nRBC # <0.01 0.00 - 0.13 10*3/uL 04/17/2024 1:12 PM EST [facility] Blood Structure of peripheral vein / Unknown Venipuncture / Unknown 04/17/2024 12:44 PM EST 04/17/2024 12:44 PM EST us Mo NICOLAS LAB BLOOD ORDERABLES Final R esult Performing Organization Address City/State/[facility] Co de Phone Number [facility] [address] [place] [address], * (ABNORMAL) Comprehensive Metabolic Panel (04/17/2024 12:44 PM EST) NA 136 136 - 145 mmol/L 04/17/2024 1:17 PM EST [facility] K 4.4 3.5 - 5.1 mmol/L 04/17/2024 1:17 PM EST [facility] Cl 99 98 - 109 mmol/L 04/17/2024 1:17 PM EST [facility] CO2 25 22 - 32 mmol/L 04/17/2024 1:17 PM EST [facility] Anion Gap 16 >=0 04/17/2024 1:17 PM EST [facility] Glucose 95 60 - 99 mg/dL 04/17/2024 1:17 PM EST [facility] Creatinine 0.57 0.50 - 1.12 mg/dL 04/17/2024 1:17 PM EST [facility] Calcium 9.5 8.4 - 10.4 mg/dL 04/17/2024 1:17 PM [facility] Total Protein 7.9 6.6 - 8.7 g/dL 04/17/2024 1:17 PM [facility] Albumin 3.4(L) 3.5 - 5.0 g/dL 04/17/2024 1:17 PM [facility] Bilirubin, Total 0.2 0.2 - 1.2 mg/dL 04/17/2024 1:17 PM [facility] Alkaline Phosphatase 210(H) 40 - 129 U/L 04/17/2024 1:17 PM [facility] AST 34(H) 0 - 33 U/L 04/17/2024 1:17 PM [facility] ALT 41(H) <=33 U/L 04/17/2024 1:17 PM [facility] BUN 23(H) 6 - 20 mg/dL 04/17/2024 1:17 PM [facility] eGFR >90 >=60 mL/min/1. 73m2 04/17/2024 1:17 PM [facility] Comment:The estimated glomer ular filtration [...] 2.1 - 4.2 g/dL 04/17/2024 1:17 PM [facility] A/G Ratio 0.8(L) 1.5 - 3.0 04/17/2024 1:17 PM [facility] Blood Structure of peripheral vein / Unknown Venipuncture / Unknown 04/17/2024 12:44 PM EST 04/17/2024 12:44 PM EST us Mo NICOLAS LAB BLOOD ORDERABLES Final R esult [facility] [address] [facility] [address] [place] [address], documented in this encounter Visit Diagnoses Diagnosis Acute respiratory failure, unspecified whether with hypoxia or hypercapnia No diagnosis documented in this encounter Care Teams Social Work Program Coordinator Relationship Specialty Start Date End Date Jojo Seymour [address] [place] [address] PCP - General Internal Medicine 03/03/23 documented as of this encounter
--- OUTSIDE RECORDS SUMMARY | 2025-02-07 16:29 | XMS_ITS | Encounter Summary ---
Author Organization [employer] Address [address] [place] [address] Care Team Providers Care Political Worker Name Role Phone Jojo Seymour MD Primary Care Provider [phone] Encounter Details Date Type Department Care Team ([facility] st Contact Info) Description 10/14/2022 Telephone [facility] [address] [place] [address] Jojo Seymour MD [address] [place] [address] Social History Tobacco Use Types Packs/Day Years [...] on filedocumented in this encounter Care Teams Political Worker Relationship Specialty Start Date End Date Jojo Seymour MD [address] [place] [address] PCP - General Internal Medicine 12/03/20 Julio [facility] 04/25/24 documented as of this encounter
--- OUTSIDE RECORDS SUMMARY | 2025-02-07 16:29 | XMS_ITS | Encounter Summary ---
Author Organization [employer] Address [address] [place] [address] Care Team Providers Care Heeler Name Role Phone Jojo Seymour MD Primary Care Provider [phone] Encounter Details Date Type Department Care Team (Late st Contact Info) Description 07/07/2022 Abstract [facility] [address] [place] [address] Jojo Seymour MD [address] [place], [place] [phone] Social History Tobacco Use Types Packs/Day Years [...] on filedocumented in this encounter Care Teams Heeler Relationship Specialty Start Date End Date Jojo Seymour MD [address] [place], [place] [phone] PCP - General Internal Medicine 12/03/20 Julio [facility] 04/25/24 documented as of this encounter
--- OUTSIDE RECORDS SUMMARY | 2025-02-07 16:29 | XMS_ITS | Encounter Summary ---
Author Organization [facility] Address [address] [place] [address] Care Team Providers Care Account Collector Name Role Phone Jojo Seymour Primary Care Provider + [phone] Encounter Details Date Type Department Care Team (Late st Contact Info) Description 04/24/2024 Lab Requisition [facility] [address] [place] [address] [phone] Mo Starkey PA [address] [place] [address] Acute respiratory failure, unspecified whether with hypoxia [...] of this encounter Procedures * Due to [place] state law, this organization might not be [...] in this encounter Results * Due to [place] state law, this organization might not be sharing negative HIV tests. * (ABNORMAL) CBC Auto Differential (04/24/2024 9:56 AM EST) WBC 6.9 4.8 - 10.8 10*3/uL 04/24/2024 10:31 AM [facility] RBC 3.94(L) 4.20 - 5.40 10*6/uL 04/24/2024 10:31 AM [facility] Hemoglobin 9.8(L) 11.7 - 15.5 g/dL 04/24/2024 10:31 AM [facility] Hematocrit 30.5(L) 35.7 - 45.8 % 04/24/2024 10:31 AM [facility] MCV 77.4(L) 81.0 - 99.0 fL 04/24/2024 10:31 AM [facility] MCH 24.9(L) 26.0 - 34.0 pg 04/24/2024 10:31 AM [facility] MCHC 32.1 31.0 - 36.0 g/dL 04/24/2024 10:31 AM [facility] RDW 15.1(H) 12.0 - 15.0 % 04/24/2024 10:31 AM [facility] RDW Standard Deviation 42.6 36.4 - 46.3 fL 04/24/2024 10:31 AM [facility] Platelets 219 140 - 440 10*3/uL 04/24/2024 10:31 AM [facility] MPV 10.1 9.4 - 12.3 fL 04/24/2024 10:31 AM EST [facility] Neutrophil % 61.4 50.0 - 75.0 % 04/24/2024 10:31 AM EST [facility] Immature Grans % 0.3 0.0 - 0.9 % 04/24/2024 10:31 AM EST [facility] Lymphocyte % 29.7 20.0 - 44.0 % 04/24/2024 10:31 AM EST [facility] Monocyte % 6.6 0.0 - 14.0 % 04/24/2024 10:31 AM [facility] Eosinophil % 1.9 0.0 - 5.0 % 04/24/2024 10:31 AM [facility] Basophil % 0.1 0.0 - 2.0 % 04/24/2024 10:31 AM [facility] Neutrophil # 4.22 1.80 - 7.70 10*3/uL 04/24/2024 10:31 AM [facility] Immature Grans # <0.03 0.00 - 0.03 10*3/uL 04/24/2024 10:31 AM [facility] Lymphocyte # 2.00 1.00 - 4.75 10*3/uL 04/24/2024 10:31 AM [facility] Monocyte # 0.50 0.00 - 0.60 10*3/uL 04/24/2024 10:31 AM EST [facility] Eosinophil # 0.10 0.00 - 0.80 10*3/uL 04/24/2024 10:31 AM [facility] Basophil # <0.03 0.00 - 0.20 10*3/uL 04/24/2024 10:31 AM [facility] nRBC % 0.0 0 - 0 /100 WBCs 04/24/2024 10:31 AM [facility] nRBC # <0.01 0.00 - 0.13 10*3/uL 04/24/2024 10:31 AM [facility] Blood Structure of peripheral vein / Unknown Venipuncture / Unknown 04/24/2024 9:56 AM EST 04/24/2024 9:56 AM EST us Mo NICOLAS LAB BLOOD ORDERABLES Final R esult Performing Organization Address [facility]/ZIP Co de Phone Number [facility] [address] [address], [place] [phone] * (ABNORMAL) Lipase (04/24/2024 9:56 AM EST) Lipase 614(H) 13 - 60 U/L 04/24/2024 11:17 AM EST [facility] Comment:ALL DELTAS REVIEWED Blood Structure of peripheral vein / Unknown Venipuncture / Unknown 04/24/2024 9:56 AM EST 04/24/2024 9:56 AM EST Mo NICOLAS LAB BLOOD ORDERABLES Final R esult Performing Organization Address [facility] Co de Phone Number [facility] [address] [place] [address], [place] [phone] * (ABNORMAL) Amylase (04/24/2024 9:56 AM EST) Amylase 337(H) 28 - 127 U/L 04/24/2024 10:45 AM EST [facility] Blood Structure of peripheral vein / Unknown Venipuncture / Unknown 04/24/2024 9:56 AM EST 04/24/2024 9:56 AM EST us Mo NICOLAS LAB BLOOD ORDERABLES Final R esult Performing Organization Address City/[facility]/ZIP Co de Phone Number [facility] [address] [address], [place] [phone] * (ABNORMAL) Comprehensive Metabolic Panel (04/24/2024 9:56 AM EST) NA 135(L) 136 - 145 mmol/L 04/24/2024 10:45 AM [facility] K 4.2 3.5 - 5.1 mmol/L 04/24/2024 10:45 AM [facility] Cl 99 98 - 109 mmol/L 04/24/2024 10:45 AM [facility] CO2 25 22 - 32 mmol/L 04/24/2024 10:45 AM [facility] Anion Gap 15 >=0 04/24/2024 10:45 AM [facility] Glucose 106(H) 60 - 99 mg/dL 04/24/2024 10:45 AM [facility] Creatinine 0.59 0.50 - 1.12 mg/dL 04/24/2024 10:45 AM [facility] Calcium 9.7 8.4 - 10.4 mg/dL 04/24/2024 10:45 AM [facility] Total Protein 7.8 6.6 - 8.7 g/dL 04/24/2024 10:45 AM [facility] Albumin 3.4(L) 3.5 - 5.0 g/dL 04/24/2024 10:45 AM [facility] Bilirubin, Total 0.3 0.2 - 1.2 mg/dL 04/24/2024 10:45 AM [facility] Alkaline Phosphatase 188(H) 40 - 129 U/L 04/24/2024 10:45 AM [facility] AST 25 0 - 33 U/L 04/24/2024 10:45 AM [facility] ALT 25 <=33 U/L 04/24/2024 10:45 AM [facility] BUN 28(H) 6 - 20 mg/dL 04/24/2024 10:45 AM [facility] eGFR >90 >=60 mL/min/1. 73m2 04/24/2024 10:45 AM [facility] Comment:The estimated glomer ular filtration [...] - 4.2 g/dL 04/24/2024 10:45 AM EST [facility] A/G Ratio 0.8(L) 1.5 - 3.0 04/24/2024 10:45 AM EST [facility] Blood Structure of peripheral vein / Unknown Venipuncture / Unknown 04/24/2024 9:56 AM EST 04/24/2024 9:56 AM EST Mo NICOLAS LAB BLOOD ORDERABLES Final R esult Performing Organization Address City/State/[facility] Co de Phone Number [facility] [address] [facility] [address] [place] [address], documented in this encounter Visit Diagnoses Diagnosis Acute respiratory failure, unspecified whether with hypoxia or hypercapnia No diagnosis documented in this encounter Care Teams Account Collector Relationship Specialty Start Date End Date Jojo Seymour [address] [place] [id number] PCP - General Internal Medicine 03/03/23 documented as of this encounter
--- OUTSIDE RECORDS SUMMARY | 2025-02-07 16:29 | XMS_ITS | Encounter Summary ---
Author Organization [facility] Address [address] [place] [address] Care Team Providers Care Corporate Fitness Program Coordinator Name Role Phone Jojo Seymour Primary Care Provider + [phone] Encounter Details Date Type Department Care Team (Late st Contact Info) Description 04/20/2024 Lab Requisition [facility] [address] [place] [address] Natalia Oropeza MD [address] [place] [address] Acute respiratory failure, unspecified whether with hypoxia [...] this encounter Procedures * Due to [place] [employer] law, this organization might not be sharing negative HIV tests. Procedure Name Priority Date/Time Associated Diagnosis Comments LIPASE Routine 04/20/2024 9:53 AM EST Acute respiratory failure, unspecified whether with hypoxia or hypercapnia (HCC) No diagnosis documented in this encounter Results * Due to [place] [employer] law, this organization might not be sharing negative HIV tests. * (ABNORMAL) Lipase (04/20/2024 9:53 AM EST) Lipase 108(H) 13 - 60 U/L 04/20/2024 11:07 AM EST [facility] Blood Structure of peripheral vein / Unknown Venipuncture / Unknown 04/20/2024 9:53 AM EST 04/20/2024 9:53 AM EST us Natalia Oropeza MD LAB BLOOD ORDERABLES Final Res ult [facility] [address] [place] [address], documented in this encounter Visit Diagnoses Diagnosis Acute respiratory failure, unspecified whether with hypoxia or hypercapnia No diagnosis documented in this encounter Care Teams Corporate Fitness Program Coordinator Relationship Specialty Start Date End Date Jojo Seymour [address] [place] [address] PCP - General Internal Medicine 03/03/23 documented as of this encounter
--- OUTSIDE RECORDS SUMMARY | 2025-02-07 16:29 | XMS_ITS | Data Portability ---
Author Organization [facility], [facility] Address [address] [place] [address] Care Team Providers Care Crop Or Grain Farmer Name Role Phone [facility] Primary Care Provider Assessment No assessment recorded. Plan of Treatment Reminders Order Date Submit Date Provider Last Modified By Organization Details Last Modified Time Details Appointments None recorded. Lab urinalysis, dipstick 2022 023 [facility], [address] [place] [address], [phone], 3 19:19:16 culture, urine 2022 023 [facility], [address] [place] [address], [place], [address], 3 08:06:57 Referral None recorded. Procedures None recorded. Surgeries None recorded. Imaging None recorded. Medication Orders cephalexin 500 mg tablet 2022 023 [facility], [address], [place], [id number], 3 19:19:19 naproxen 500 mg tablet 2022 023 [facility], [address], [place], [id number], 3 19:19:20 Patient TargetsNo targets recorded. Patient Instructions Encounter Date Encounter Id Patient Instructions Last Modified By Organization Details Last Modified Time 10/15/2022 [id number] Female Urinary Tract Infection (UTI): Care Instructions Not available 10/15/2022 19:19:12 getting [...] culture, routine FINAL REPORT Not Available [facility] ([facility]) [address] [facility], [place], [address], 10/18/2022 08:06:57 07/27/20 23 10/18/2022 URINE CULTU RE, ROUTI NE result 1 COMMEN T Cultu re shows less than 10,00 0 colon y formi ng units of bacte filomena per shraddha liter of urine . This colon y count is not gener ally consi dered to be clini kehinde signi swati t. Not Available [facility] ([facility]) [address] [facility], [place], [address], 10/18/2022 08:06:57 10/16/1910/15/2022 urina lysis , dipst ick Unknown Analyte Normal = light yellow Not Available [address] [place] [address], [place], [address], 10/15/2022 18:38:03 10/16/19 23 10/15/2022 urina lysis , dipst ick Unknown Analyte Normal = clear Not Available [address] [place] [address], [place], [address], 10/15/2022 18:38:03 10/16/19 23 10/15/2022 urina lysis , dipst ick Unknown Analyte Normal = negati ve Not Available [address] [place] [address], [place], [address], 10/15/2022 18:38:03 10/16/19 23 10/15/2022 urina lysis , dipst ick Unknown Analyte Normal = Negati ve Not Available [address] [place] [address], [place], [address], 10/15/2022 18:38:03 10/16/19 23 10/15/2022 urina lysis , dipst ick Unknown Analyte Normal = Negati ve Not Available [address] [place] [address], [place], [address], 10/15/2022 18:38:03 10/16/19 23 10/15/2022 urina lysis , dipst ick Unknown Analyte Normal = 1.010, 1.015, 1.020 Not Available lesly chester [address], [place], [address], 10/15/2022 18:38:03 10/16/19 23 10/15/2022 urina lysis , dipst ick Unknown Analyte Normal = Negati ve Not Available [facility] [address], [place], [address], 10/15/2022 18:38:03 10/16/19 23 10/15/2022 urina lysis , dipst ick Unknown Analyte Normal = 6.5, 7.0, 7.5, 8.0 Not Available [facility] [address], [place], [place], [address], 10/15/2022 18:38:03 10/16/19 23 10/15/2022 urina lysis , dipst ick Unknown Analyte Normal = Negati ve Not Available lesly [address], [place], [place], [address], 10/15/2022 18:38:03 10/16/19 23 10/15/2022 urina lysis , dipst ick Unknown Analyte Normal = 0.2, 1.0 Not Available [address] [place] [address], [place], [address], 10/15/2022 18:38:03 10/16/19 23 10/15/2022 urina lysis , dipst ick Unknown Analyte Normal = Negati ve Not Available [facility] [address], [place], [address], 10/15/2022 18:38:03 10/16/19 23 10/15/2022 urina lysis , dipst ick Unknown Analyte Normal = Negati ve Not Available [address] [place] [address], [place], [address], 10/15/2022 18:38:03 10/16/19 23 10/15/2022 urina lysis , dipst ick Unknown Analyte Light Yellow Not Available lesly chester [address], [place], [address], 10/15/2022 18:38:03 10/16/19 23 10/15/2022 urina lysis , dipst ick Unknown Analyte Clear Not Available leo [address], [place], [address], 10/15/2022 18:38:03 10/16/19 23 10/15/2022 urina lysis , dipst ick Unknown Analyte Negati ve Not Available lesly [address], [place], [address], 10/15/2022 18:38:03 10/16/19 23 10/15/2022 urina lysis , dipst ick Unknown Analyte Negati ve Not Available lesly chester [address], [place], [address], 10/15/2022 18:38:03 10/16/19 23 10/15/2022 urina lysis , dipst ick Unknown Analyte Negati ve Not Available lesly chester [address], [place], [address], 10/15/2022 18:38:03 10/16/19 23 10/15/2022 urina lysis , dipst ick Unknown Analyte 1.030 Not Available alicia[address], [place], [address], 10/15/2022 18:38:03 10/16/19 23 10/15/2022 urina lysis , dipst ick Unknown Analyte Modera te Not Available lesly [address], [place], [address], 10/15/2022 18:38:03 10/16/19 23 10/15/2022 urina lysis , dipst ick Unknown Analyte 5.5 Not Available [address], [place], [address], 10/15/2022 18:38:03 10/16/1910/15/2022 urina lysis , dipst ick Unknown Analyte 300 mg/dL Not Available elsly chester [address], [place], [address], 10/15/2022 18:38:03 10/16/1910/15/2022 urina lysis , dipst ick Unknown Analyte 0.2 E.U./d L Not Available [address]lesly chester [address], [place], [address], 10/15/2022 18:38:03 10/16/19 23 10/15/2022 urina lysis , dipst ick Unknown Analyte Negati ve Not Available [address]lesly chester [address], [place], [address], 10/15/2022 18:38:03 10/16/19 23 10/15/2022 urina lysis , dipst ick Unknown Analyte Negati ve Not Available [address]lesly chester [address], [place], [address], 10/15/2022 18:38:03 Result Notes None recorded. Problems Name Problem SNOMED Code Status Onset Date Resolution Date Notes Provider Name and Address Organization Details Recorded Time Hypertensive disorder 01552430 Active Gudeliatricai joy, PA - [facility] 18:37:31 Hypercholest erolemia 77218333 Active Gudeliatricia joy, PA - [facility] 18:37:42 Pancreatitis 10144357 Completed 10/15/2022 Briana joy PA - [facility] 3 18:37:56 Problem Notes None recorded. [...] Pulse oximetry Heart rate Body temperature Systolic And Diastolic Provider Name and Address Organization Details Last Updated DateTime 3 157.48 cm 35.8 kg/m2 20088.1 g 8 18 /min 98 % 98 % 83 /min 97.8 [degF] 145/89 mm[Hg] Gudelia Myles PA - [facility] 3 18:40:50 Social History Question Answer Notes LastModified by [employer] Details LastModified Time Tobacco Smoking Status Never Smoker Gudelia joy PA - [facility] 10/15/2022 18:36:21 Have You Had Direct Contact, Or Contact During Intimacy, With Monkeypox Rash, Scabs, Or Body Fluids From A Person With Monkeypox? No Information not available 10/15/2022 Have You Recently Traveled Abroad? No Information not available 10/15/2022 Sex: Unknown Functional Status Question Answer Note LastModified by [employer] Details LastModified Time Do you use any [...] Diagnosis SNOMED-CT Code Diagnosis ICD10 Code Diagnosis IMO Codes Diagnosis Note [id number] [facility] [address] [place] [address] 08/17/2018 09:49:03 08/17/2018 11:36:06 [id number] Shelton Monahan NP [facility] [address] [place] [address] 10/15/2022 18:12:59 10/15/2022 19:22:32 Acute low back pain 145639402 M54.50 Urinary tr act infectious disease 11965862 N39.0 Health Concerns Section Related Observation LastModified by Organization Detai ls LastModified Time None Recorded Concern Status LastModified by Organization Details LastModified Time None Recorded Advance Directives Directive None Recorded Payers Insurance Date Sequence Insurance Name Policy Number Policy Matute Covered Member ID Matute Member ID Guarantor Name 02/19/2023 1 [place] [facility] Windy Hood [id number] Windy Tai 10/15/2022 1 [facility]MEDICAID HMO) [id number] Windy Hood [id number] Windy Ati Notes Date Note Type Note Provider Name and Address Organization Details Recorded Time 3 text/html Back Pain/Injury UCReported by Patient Lower BackReported by PatientHPIFor associated symptoms, patient reportstinglingbut reportsno weakness,no numbness,no swelling,no redness,no warmth,no ecchymosis,no catching/locking,no popping/clicking,no buckling,no grinding,no instability,no radiation down leg,no drainage,no fever,no chills,no weight loss, andno change in bowel/bladder habits. For location, patient reportsleftandposterior. For quality, patient reportsaching,burning, andconstant. For severity, patient reportsmoderate. For duration, patient reports2 days. For timing, patient reportsacute,morning,dayt zenaida, andnighttime. For context, patient reportscannot identifyandlifting. For alleviating factors, patient reportsrestandnsaids. For aggravating factors, patient reportswalking,lifting,ca rrying,bending/squatting, andpushing/pulling. For previous surgery, patient reportsnone. For prior imaging, patient reportsnone. For previous injections, patient reportsnone. For previous pt, patient reportsnone. For work related, patient reportsno. For working, patient reportsno. Shelton Monahan NP [address] [place], [address], PA - [facility] 10/15/2022 19:19:48 OBGyn Episode No OBEpisode recorded.
--- OUTSIDE RECORDS SUMMARY | 2025-02-07 16:29 | XMS_ITS | Encounter Summary ---
Author Organization [facility] Address [address] [place] [address] Care Team Providers Care Director Metabolism Name Role Phone Jojo Seymour Primary Care Provider + [phone] Encounter Details Date Type Department Care Team (Late st Contact Info) Description 03/21/2024 Lab Requisition [facility] [address] [place] [address] Mo Starkey PA [address] [place] [address] Acute and chronic respiratory failure with hypoxia; [...] of this encounter Procedures * Due to [place] state law, this organization might not be [...] in this encounter Results * Due to [place] state law, this organization might not be sharing negative HIV tests. * (ABNORMAL) CBC Auto Differential (03/21/2024 9:33 AM EST) WBC 11.3(H) 4.8 - 10.8 10*3/uL 03/21/2024 9:42 AM EST [facility] RBC 3.63(L) 4.20 - 5.40 10*6/uL 03/21/2024 9:42 AM EST [facility] Hemoglobin 9.4(L) 11.7 - 15.5 g/dL 03/21/2024 9:42 AM EST [facility] Hematocrit 29.0(L) 35.7 - 45.8 % 03/21/2024 9:42 AM EST [facility] MCV 79.9(L) 81.0 - 99.0 fL 03/21/2024 9:42 AM EST [facility] MCH 25.9(L) 26.0 - 34.0 pg 03/21/2024 9:42 AM EST [facility] MCHC 32.4 31.0 - 36.0 g/dL 03/21/2024 9:42 AM EST [facility] RDW 14.7 12.0 - 15.0 % 03/21/2024 9:42 AM EST [facility] RDW Standard Deviation 43.5 36.4 - 46.3 fL 03/21/2024 9:42 AM EST [facility] Platelets 376 140 - 440 10*3/uL 03/21/2024 9:42 AM EST [facility] MPV 9.2(L) 9.4 - 12.3 fL 03/21/2024 9:42 AM EST [facility] Neutrophil % 65.8 50.0 - 75.0 % 03/21/2024 9:42 AM EST [facility] Immature Grans % 0.4 0.0 - 0.9 % 03/21/2024 9:42 AM EST [facility] Lymphocyte % 26.7 20.0 - 44.0 % 03/21/2024 9:42 AM EST [facility] Monocyte % 5.6 0.0 - 14.0 % 03/21/2024 9:42 AM EST [facility] Eosinophil % 1.2 0.0 - 5.0 % 03/21/2024 9:42 AM EST [facility] Basophil % 0.3 0.0 - 2.0 % 03/21/2024 9:42 AM EST [facility] Neutrophil # 7.41 1.80 - 7.70 10*3/uL 03/21/2024 9:42 AM EST [facility] Immature Grans # 0.04(H) 0.00 - 0.03 10*3/uL 03/21/2024 9:42 AM EST [facility] Lymphocyte # 3.00 1.00 - 4.75 10*3/uL 03/21/2024 9:42 AM EST [facility] Monocyte # 0.60 0.00 - 6.00 10*3/uL 03/21/2024 9:42 AM EST [facility] Eosinophil # 0.10 0.00 - 0.80 10*3/uL 03/21/2024 9:42 AM EST [facility] Basophil # <0.03 0.00 - 0.20 10*3/uL 03/21/2024 9:42 AM EST [facility] nRBC % 0.0 0 - 0 /100 WBCs 03/21/2024 9:42 AM EST [facility] nRBC # <0.01 0.00 - 0.13 10*3/uL 03/21/2024 9:42 AM EST [facility] Blood Structure of peripheral vein / Unknown Venipuncture / Unknown 03/21/2024 9:33 AM EST 03/21/2024 9:34 AM EST [facility] BLOOD ORDERABLES Final R esult Performing Organization Address [facility]/ZIP Co de Phone Number [facility] [address] [address], [place] [phone] * Hemoglobin A1c (03/21/2024 9:33 AM EST) Pathologist [facility] Hemoglobin A1c 4.7 4.0 - 5.7 % 03/21/2024 9:56 AM EST [facility] Estimated Average Glucose 88 mg/dL 03/21/2024 9:56 AM EST [facility] Blood Structure of peripheral vein / Unknown Venipuncture / Unknown 03/21/2024 9:33 AM EST 03/21/2024 9:34 AM EST [facility] BLOOD ORDERABLES Final R esult Performing Organization Address [facility] Co de Phone Number [facility] [address] [address], [place] [phone] * (ABNORMAL) Comprehensive Metabolic Panel (03/21/2024 9:33 AM EST) Pathologist [facility] NA 135(L) 136 - 145 mmol/L 03/21/2024 9:56 AM EST [facility] K 3.9 3.5 - 5.1 mmol/L 03/21/2024 9:56 AM EST [facility] Cl 95(L) 98 - 109 mmol/L 03/21/2024 9:56 AM EST [facility] CO2 27 22 - 32 mmol/L 03/21/2024 9:56 AM EST [facility] Anion Gap 17 >=0 03/21/2024 9:56 AM EST [facility] Glucose 103(H) 60 - 99 mg/dL 03/21/2024 9:56 AM EST [facility] Creatinine 0.58 0.50 - 1.12 mg/dL 03/21/2024 9:56 AM EST [facility] Calcium 9.7 8.4 - 10.4 mg/dL 03/21/2024 9:56 AM [facility] Total Protein 8.5 6.6 - 8.7 g/dL 03/21/2024 9:56 AM [facility] Albumin 3.3(L) 3.5 - 5.0 g/dL 03/21/2024 9:56 AM [facility] Bilirubin, Total 0.3 0.2 - 1.2 mg/dL 03/21/2024 9:56 AM [facility] Alkaline Phosphatase 306(H) 40 - 129 U/L 03/21/2024 9:56 AM [facility] AST 41(H) 0 - 33 U/L 03/21/2024 9:56 AM [facility] ALT 46(H) <=33 U/L 03/21/2024 9:56 AM [facility] BUN 31(H) 6 - 20 mg/dL 03/21/2024 9:56 AM [facility] eGFR >90 >=60 mL/min/1. 73m2 03/21/2024 9:56 AM [facility] Comment:The estimated glomer ular filtration [...] 2.1 - 4.2 g/dL 03/21/2024 9:56 AM [facility] A/G Ratio 0.6(L) 1.5 - 3.0 03/21/2024 9:56 AM [facility] Blood Structure of peripheral vein / Unknown Venipuncture / Unknown 03/21/2024 9:33 AM EST 03/21/2024 9:34 AM EST us [facility] BLOOD ORDERABLES Final R esult [facility] [address] [facility] [address] [place] [address], [place] [phone] documented in this encounter Visit Diagnoses Diagnosis Acute and chronic respiratory failure with hypoxia No diagnosis documented in this encounter Care Teams Director Metabolism Relationship Specialty Start Date End Date Jojo Seymour [address] [place] [address] PCP - General Internal Medicine 03/03/23 documented as of this encounter
--- OUTSIDE RECORDS SUMMARY | 2025-02-07 16:29 | XMS_ITS | Encounter Summary ---
Author Organization [facility] Address [address] [place] [address] Care Team Providers Care Sound Person Name Role Phone Jojo Seymour Primary Care Provider + [phone] Encounter Details Date Type Department Care Team (Late st Contact Info) Description 04/10/2024 Lab Requisition [facility] [address] [place] [address] Mo Starkey PA [address] [place] [address] Acute and chronic respiratory failure with hypoxia; [...] of this encounter Procedures * Due to [place] state law, this organization might not be sharing negative HIV tests. Procedure Name Priority Date/Time Associated Diagnosis Comments CBC AUTO DIFFERENTIAL Routine 04/10/2024 10:25 AM EST Acute and chronic respiratory failure with hypoxia (HCC) No diagnosis COMPREHENSIVE METABOLIC PANEL Routine 04/10/2024 10:25 AM EST Acute and chronic respiratory failure with hypoxia (HCC) No diagnosis documented in this encounter Results * Due to [place] state law, this organization might not be sharing negative HIV tests. * (ABNORMAL) Comprehensive Metabolic Panel (04/10/2024 10:25 AM EST) NA 134(L) 136 - 145 mmol/L 04/10/2024 11:15 AM EST [facility] K 4.1 3.5 - 5.1 mmol/L 04/10/2024 11:15 AM EST [facility] Cl 98 98 - 109 mmol/L 04/10/2024 11:15 AM EST [facility] CO2 27 22 - 32 mmol/L 04/10/2024 11:15 AM EST [facility] Anion Gap 13 >=0 04/10/2024 11:15 AM EST [facility] Glucose 92 60 - 99 mg/dL 04/10/2024 11:15 AM [facility] Creatinine 0.57 0.50 - 1.12 mg/dL 04/10/2024 11:15 AM EST [facility] Calcium 9.3 8.4 - 10.4 mg/dL 04/10/2024 11:15 AM [facility] Total Protein 7.9 6.6 - 8.7 g/dL 04/10/2024 11:15 AM [facility] Albumin 3.3(L) 3.5 - 5.0 g/dL 04/10/2024 11:15 AM [facility] Bilirubin, Total 0.2 0.2 - 1.2 mg/dL 04/10/2024 11:15 AM EST [facility] Alkaline Phosphatase 198(H) 40 - 129 U/L 04/10/2024 11:15 AM EST [facility] AST 20 0 - 33 U/L 04/10/2024 11:15 AM [facility] ALT 24 <=33 U/L 04/10/2024 11:15 AM [facility] BUN 20 6 - 20 mg/dL 04/10/2024 11:15 AM [facility] eGFR >90 >=60 mL/min/1. 73m2 04/10/2024 11:15 AM EST [facility] Comment:The estimated glomer ular filtration [...] - 4.2 g/dL 04/10/2024 11:15 AM EST [facility] A/G Ratio 0.7(L) 1.5 - 3.0 04/10/2024 11:15 AM EST [facility] Blood Structure of peripheral vein / Unknown Venipuncture / Unknown 04/10/2024 10:25 AM EST 04/10/2024 10:25 AM EST [facility] BLOOD ORDERABLES Final R esult [facility] [address] [facility] [address] [place] [address], * (ABNORMAL) CBC Auto Differential (04/10/2024 10:25 AM EST) WBC 12.7(H) 4.8 - 10.8 10*3/uL 04/10/2024 10:54 AM EST [facility] RBC 3.80(L) 4.20 - 5.40 10*6/uL 04/10/2024 10:54 AM EST [facility] Hemoglobin 9.5(L) 11.7 - 15.5 g/dL 04/10/2024 10:54 AM EST [facility] Hematocrit 29.6(L) 35.7 - 45.8 % 04/10/2024 10:54 AM EST [facility] MCV 77.9(L) 81.0 - 99.0 fL 04/10/2024 10:54 AM EST [facility] MCH 25.0(L) 26.0 - 34.0 pg 04/10/2024 10:54 AM [facility] MCHC 32.1 31.0 - 36.0 g/dL 04/10/2024 10:54 AM [facility] RDW 14.7 12.0 - 15.0 % 04/10/2024 10:54 AM [facility] RDW Standard Deviation 41.7 36.4 - 46.3 fL 04/10/2024 10:54 AM [facility] Platelets 299 140 - 440 10*3/uL 04/10/2024 10:54 AM [facility] MPV 9.3(L) 9.4 - 12.3 fL 04/10/2024 10:54 AM [facility] Neutrophil % 72.6 50.0 - 75.0 % 04/10/2024 10:54 AM [facility] Immature Grans % 0.5 0.0 - 0.9 % 04/10/2024 10:54 AM [facility] Lymphocyte % 22.1 20.0 - 44.0 % 04/10/2024 10:54 AM [facility] Monocyte % 3.7 0.0 - 14.0 % 04/10/2024 10:54 AM [facility] Eosinophil % 0.9 0.0 - 5.0 % 04/10/2024 10:54 AM EST [facility] Basophil % 0.2 0.0 - 2.0 % 04/10/2024 10:54 AM [facility] Neutrophil # 9.25(H) 1.80 - 7.70 10*3/uL 04/10/2024 10:54 AM [facility] Immature Grans # 0.06(H) 0.00 - 0.03 10*3/uL 04/10/2024 10:54 AM EST [facility] Lymphocyte # 2.80 1.00 - 4.75 10*3/uL 04/10/2024 10:54 AM EST [facility] Monocyte # 0.50 0.00 - 6.00 10*3/uL 04/10/2024 10:54 AM EST [facility] Eosinophil # 0.10 0.00 - 0.80 10*3/uL 04/10/2024 10:54 AM EST [facility] Basophil # <0.03 0.00 - 0.20 10*3/uL 04/10/2024 10:54 AM EST [facility] nRBC % 0.0 0 - 0 /100 WBCs 04/10/2024 10:54 AM EST [facility] nRBC # <0.01 0.00 - 0.13 10*3/uL 04/10/2024 10:54 AM EST [facility] Blood Structure of peripheral vein / Unknown Venipuncture / Unknown 04/10/2024 10:25 AM EST 04/10/2024 10:25 AM EST us [facility] BLOOD ORDERABLES Final R esult Performing Organization Address City/State/[facility] Co de Phone Number [facility] [address] [facility] [address] [place] [address], documented in this encounter Visit Diagnoses Diagnosis Acute and chronic respiratory failure with hypoxia No diagnosis documented in this encounter Care Teams Sound Person Relationship Specialty Start Date End Date Jojo Seymour [address] [place] [address] PCP - General Internal Medicine 03/03/23 documented as of this encounter
--- OUTSIDE RECORDS SUMMARY | 2025-02-07 16:29 | XMS_ITS | Clinical Summary ---
Author Organization [facility] Address [address] [place] [address] Care Team Providers Care Decorative Engraver Apprentice Name Role Phone Jojo Seymour Primary Care Provider [phone] Allergies No known active allergies Medications atorvastatin [...] of Health Annual Screening 03/22/2024 Influenza Vaccine (#1) 2024 , 02/10/2019 COVID-19 Vaccine (4 - 2024-2 6 season) 2024 04/18/2021, 08/21/2020, 07/24/2020 Cervical Cancer Screening 02/05/2025 Pap Smear 02/05/2025 02/05/2022 Pneumococcal Vaccine: Pediatric (0-5 Years) and At-Risk Patients (6-50 Years) Aged Out No longer eligible based on patient's age to complete this topic Insurance [employer] [id number] Advance Directives * Presumed Full Code (Latest Code Status on File) Date Activated Date Inactivated Comments 12/19/2022 1:24 PM 12/20/2022 3:33 PM Care Teams Decorative Engraver Apprentice Relationship Specialty Start Date End Date Jojo Seymour [address] [place] [address] PCP - General Internal Medicine 03/03/23
--- OUTSIDE RECORDS SUMMARY | 2025-02-07 16:29 | XMS_ITS | Clinical Summary ---
Author Organization [facility] Address [address] [facility] [address] [place] [address] Phone Care Team Providers Care Cotton Bag Sewer Name Role Phone Unavailable Primary Care Provider [...] It is not the complete legal health record.[facility]
--- OUTSIDE RECORDS SUMMARY | 2025-02-07 16:29 | XMS_ITS | Encounter Summary ---
Author Organization [facility] Address [address] [place] [address] Care Team Providers Care Powerhouse Mechanic Name Role Phone Jojo Seymour Primary Care Provider + [phone] Encounter Details Date Type Department Care Team (Late st Contact Info) Description 04/01/2024 Lab Requisition [facility] [address] [place] [address] [phone] Aga Infante MD [address] [place] [address] [place] [address] Acute respiratory failure, unspecified whether with hypoxia [...] - 10.8 10*3/uL 04/01/2024 10:44 AM EST [facility] RBC 3.85(L) 4.20 - 5.40 10*6/uL 04/01/2024 10:44 AM EST [facility] Hemoglobin 9.9(L) 11.7 - 15.5 g/dL 04/01/2024 10:44 AM EST [facility] Hematocrit 30.3(L) 35.7 - 45.8 % 04/01/2024 10:44 AM EST [facility] MCV 78.7(L) 81.0 - 99.0 fL 04/01/2024 10:44 AM EST [facility] MCH 25.7(L) 26.0 - 34.0 pg 04/01/2024 10:44 AM EST [facility] MCHC 32.7 31.0 - 36.0 g/dL 04/01/2024 10:44 AM EST [facility] RDW 14.8 12.0 - 15.0 % 04/01/2024 10:44 AM EST [facility] RDW Standard Deviation 42.4 36.4 - 46.3 fL 04/01/2024 10:44 AM EST [facility] Platelets 396 140 - 440 10*3/uL 04/01/2024 10:44 AM EST [facility] MPV 9.3(L) 9.4 - 12.3 fL 04/01/2024 10:44 AM EST [facility] Neutrophil % 57.6 50.0 - 75.0 % 04/01/2024 10:44 AM EST [facility] Immature Grans % 0.2 0.0 - 0.9 % 04/01/2024 10:44 AM EST [facility] Lymphocyte % 34.5 20.0 - 44.0 % 04/01/2024 10:44 AM EST [facility] Monocyte % 5.6 0.0 - 14.0 % 04/01/2024 10:44 AM EST [facility] Eosinophil % 1.7 0.0 - 5.0 % 04/01/2024 10:44 AM EST [facility] Basophil % 0.4 0.0 - 2.0 % 04/01/2024 10:44 AM EST [facility] Neutrophil # 5.12 1.80 - 7.70 10*3/uL 04/01/2024 10:44 AM EST [facility] Immature Grans # <0.03 0.00 - 0.03 10*3/uL 04/01/2024 10:44 AM EST [facility] Lymphocyte # 3.10 1.00 - 4.75 10*3/uL 04/01/2024 10:44 AM EST [facility] Monocyte # 0.50 0.00 - 6.00 10*3/uL 04/01/2024 10:44 AM EST [facility] Eosinophil # 0.20 0.00 - 0.80 10*3/uL 04/01/2024 10:44 AM EST [facility] Basophil # <0.03 0.00 - 0.20 10*3/uL 04/01/2024 10:44 AM EST [facility] nRBC % 0.0 0 - 0 /100 WBCs 04/01/2024 10:44 AM EST [facility] nRBC # <0.01 0.00 - 0.13 10*3/uL 04/01/2024 10:44 AM EST [facility] Blood Structure of peripheral vein / Unknown 04/01/2024 5:45 AM EST 04/01/2024 9:20 AM EST us Aga Infante MD LAB BLOOD ORDERABLES Final Res ult [facility] [address] [place] [address], * (ABNORMAL) Basic Metabolic Panel (04/01/2024 5:45 AM EST) NA 136 136 - 145 mmol/L 04/01/2024 10:56 AM EST [facility] K 4.3 3.5 - 5.1 mmol/L 04/01/2024 10:56 AM EST [facility] Cl 98 98 - 109 mmol/L 04/01/2024 10:56 AM EST [facility] CO2 27 22 - 32 mmol/L 04/01/2024 10:56 AM EST [facility] BUN 25(H) 6 - 20 mg/dL 04/01/2024 10:56 AM EST [facility] Creatinine 0.57 0.50 - 1.12 mg/dL 04/01/2024 10:56 AM EST [facility] Glucose 144(H) 60 - 99 mg/dL 04/01/2024 10:56 AM EST [facility] Calcium 9.3 8.4 - 10.4 mg/dL 04/01/2024 10:56 AM EST [facility] Anion Gap 15 >=0 04/01/2024 10:56 AM EST [facility] eGFR >90 >=60 mL/min/1. 73m2 04/01/2024 10:56 AM EST [facility] Comment:The estimated glomer ular filtration [...] MD LAB BLOOD ORDERABLES Final Res ult [facility] [address] [facility] [address] [place] [address], documented in this encounter Visit Diagnoses Diagnosis Acute respiratory failure, unspecified whether with hypoxia or hypercapnia No diagnosis documented in this encounter Care Teams Powerhouse Mechanic Relationship Specialty Start Date End Date Jojo Seymour [address] [place] [address] PCP - General Internal Medicine 03/03/23 documented as of this encounter
--- OUTSIDE RECORDS SUMMARY | 2025-02-07 16:29 | XMS_ITS | Encounter Summary ---
Author Organization [facility] Address [address] [place] [address] Care Team Providers Care Accounting Representative Name Role Phone Jojo Seymour Primary Care Provider + [phone] Encounter Details Date Type Department Care Team (Late st Contact Info) Description 04/07/2024 Lab Requisition [facility] Lab [address] [place] [address] Natalia rOopeza MD [address] [place] [address] Acute respiratory failure, unspecified whether with hypoxia [...] of this encounter Procedures * Due to [place] state law, this organization might not be [...] in this encounter Results * Due to [place] state law, this organization might not be sharing negative HIV tests. * (ABNORMAL) CBC Auto Differential (04/07/2024 10:04 AM EST) WBC 8.8 4.8 - 10.8 10*3/uL 04/07/2024 10:22 AM EST [facility] RBC 3.74(L) 4.20 - 5.40 10*6/uL 04/07/2024 10:22 AM [facility] Hemoglobin 9.4(L) 11.7 - 15.5 g/dL 04/07/2024 10:22 AM [facility] Hematocrit 29.1(L) 35.7 - 45.8 % 04/07/2024 10:22 AM [facility] MCV 77.8(L) 81.0 - 99.0 fL 04/07/2024 10:22 AM [facility] MCH 25.1(L) 26.0 - 34.0 pg 04/07/2024 10:22 AM [facility] MCHC 32.3 31.0 - 36.0 g/dL 04/07/2024 10:22 AM [facility] RDW 14.6 12.0 - 15.0 % 04/07/2024 10:22 AM [facility] RDW Standard Deviation 41.0 36.4 - 46.3 fL 04/07/2024 10:22 AM [facility] Platelets 310 140 - 440 10*3/uL 04/07/2024 10:22 AM [facility] MPV 9.4 9.4 - 12.3 fL 04/07/2024 10:22 AM [facility] Neutrophil % 58.6 50.0 - 75.0 % 04/07/2024 10:22 AM [facility] Immature Grans % 0.3 0.0 - 0.9 % 04/07/2024 10:22 AM [facility] Lymphocyte % 34.3 20.0 - 44.0 % 04/07/2024 10:22 AM EST [facility] Monocyte % 4.8 0.0 - 14.0 % 04/07/2024 10:22 AM EST [facility] Eosinophil % 1.7 0.0 - 5.0 % 04/07/2024 10:22 AM EST [facility] Basophil % 0.3 0.0 - 2.0 % 04/07/2024 10:22 AM EST [facility] Neutrophil # 5.14 1.80 - 7.70 10*3/uL 04/07/2024 10:22 AM EST [facility] Immature Grans # 0.03 0.00 - 0.03 10*3/uL 04/07/2024 10:22 AM EST [facility] Lymphocyte # 3.00 1.00 - 4.75 10*3/uL 04/07/2024 10:22 AM EST [facility] Monocyte # 0.40 0.00 - 6.00 10*3/uL 04/07/2024 10:22 AM EST [facility] Eosinophil # 0.20 0.00 - 0.80 10*3/uL 04/07/2024 10:22 AM EST [facility] Basophil # <0.03 0.00 - 0.20 10*3/uL 04/07/2024 10:22 AM EST [facility] nRBC % 0.0 0 - 0 /100 WBCs 04/07/2024 10:22 AM EST [facility] nRBC # <0.01 0.00 - 0.13 10*3/uL 04/07/2024 10:22 AM EST [facility] Blood Structure of peripheral vein / Unknown Venipuncture / Unknown 04/07/2024 10:04 AM EST 04/07/2024 10:04 AM EST us Natalia Oropeza MD LAB BLOOD ORDERABLES Final Res ult Performing Organization Address City/State/[facility] Co de Phone Number [facility] [address] [place] [address] [address] [place] [address], [place] [phone] * (ABNORMAL) Comprehensive Metabolic Panel (04/07/2024 10:04 AM EST) NA 134(L) 136 - 145 mmol/L 04/07/2024 11:00 AM EST [facility] K 4.1 3.5 - 5.1 mmol/L 04/07/2024 11:00 AM EST [facility] Cl 97(L) 98 - 109 mmol/L 04/07/2024 11:00 AM EST [facility] CO2 23 22 - 32 mmol/L 04/07/2024 11:00 AM [facility] Anion Gap 18 >=0 04/07/2024 11:00 AM [facility] Glucose 92 60 - 99 mg/dL 04/07/2024 11:00 AM [facility] Creatinine 0.60 0.50 - 1.12 mg/dL 04/07/2024 11:00 AM EST [facility] Calcium 9.7 8.4 - 10.4 mg/dL 04/07/2024 11:00 AM [facility] Total Protein 8.3 6.6 - 8.7 g/dL 04/07/2024 11:00 AM [facility] Albumin 3.4(L) 3.5 - 5.0 g/dL 04/07/2024 11:00 AM [facility] Bilirubin, Total 0.3 0.2 - 1.2 mg/dL 04/07/2024 11:00 AM EST [facility] Alkaline Phosphatase 204(H) 40 - 129 U/L 04/07/2024 11:00 AM [facility] AST 32 0 - 33 U/L 04/07/2024 11:00 AM [facility] ALT 36(H) <=33 U/L 04/07/2024 11:00 AM [facility] BUN 19 6 - 20 mg/dL 04/07/2024 11:00 AM EST [facility] eGFR >90 >=60 mL/min/1. 73m2 04/07/2024 11:00 AM EST [facility] Comment:The estimated glomer ular [...] - 4.2 g/dL 04/07/2024 11:00 AM EST [facility] A/G Ratio 0.7(L) 1.5 - 3.0 04/07/2024 11:00 AM EST [facility] Blood Structure of peripheral vein / Unknown Venipuncture / Unknown 04/07/2024 10:04 AM EST 04/07/2024 10:04 AM EST us Natalia Oropeza MD LAB BLOOD ORDERABLES Final Res ult [facility] [address] [facility] [address] [place] [address], documented in this encounter Visit Diagnoses Diagnosis Acute respiratory failure, unspecified whether with hypoxia or hypercapnia No diagnosis documented in this encounter Care Teams Accounting Representative Relationship Specialty Start Date End Date Jojo Seymour [address] [place] [address] PCP - General Internal Medicine 03/03/23 documented as of this encounter
--- OUTSIDE RECORDS SUMMARY | 2025-02-07 16:29 | XMS_ITS | Encounter Summary ---
Author Organization [employer] Address [address] [place] [address] Care Team Providers Care Social Media Editor Name Role Phone Jojo Seymour MD Primary Care Provider [phone] Reason for Visit * Reason Onset Date Comments FYI 04/21/2024 Encounter Details Date Type Department Care Team ([facility] st Contact Info) Description 04/21/2024 Telephone [facility] [address] [place] [address] Jojo Seymour MD [address] [place] [phone] FYI Social History Tobacco Use Types Packs/Day [...] 04/21/2024 8:33 AM EST Tc from Chyna (benzene worker) with [facility] informing pt was supposed to get discharge today 04/21/2024 , discharge date is now put on hold. If any questions please contact Chyna at [phone] documented in this encounter Plan of Treatment Not on file documented as of this encounter Visit Diagnoses Not on filedocumented in this encounter Care Teams Social Media Editor Relationship Specialty Start Date End Date Jojo Seymour MD [address] [place] [phone] PCP - General Internal Medicine 12/03/20 Julio NERI 04/25/24 documented as of this encounter
--- OUTSIDE RECORDS SUMMARY | 2025-02-07 16:29 | XMS_ITS | Clinical Summary ---
Author Organization [employer] Address [address] [place] [address] [address] [place] [address] Care Team Providers Care Engineer Sergeant Name Role Phone Jojo Seymour MD Primary Care Provider Allergies Active Allergy Reactions Criticality Noted Date Comments Pravastatin 10/15/2022 Other reaction(s): nausea, tired Medications Creon 54640-71653 units capsule TAKE 1 CAPSULE BY MOUTH FOUR TIMES DAILY WITH MEALS AND/OR SNACKS 3 Active melatonin 5 MG tabletIndications :Primary insomnia 1 tab at bedtime 30 tablet 3 4 Active Blood Pressure kitIndications:Pr imary hypertension To use daily 1 kit 5 Active pancrelipase, Bda-Agxs-Ckbw, (Creon) 23964-22407 units capsuleIndication s:Hypertriglyceri demia,Other chronic pancreatitis (HCC) Take 3 capsules (36,000 units of lipase) by mouth with breakfast, with lunch, and with evening meal. 120 capsule 11 5 Active FREESTYLE LITE test stripIndications: Hyperglycemia Use to test blood sugar 1 times daily 100 each 12 5 05/02/19 26 Active Lancets miscIndications:H yperglycemia Use to test blood sugar 1 times daily 100 each 5 Active Alcohol Swabs 70 % padsIndications:H yperglycemia Use to test blood sugar 1 times daily 100 each 11 5 Active Blood Glucose Monitoring Suppl (FreeStyle [place] Lite) w/Device kitIndications:Hy perglycemia Use to test blood sugar 1 times daily 1 kit 5 Active metoprolol tartrate (Lopressor) 25 MG tabletIndications :Primary hypertension Take 1 tablet (25 mg) by mouth 2 times daily. 60 tablet 11 5 Active acetaminophen (Tylenol) 500 MG tabletIndications :Acute pain of both knees,Plantar fasciitis, bilateral Take 2 tablets (1,000 mg) by mouth every 6 (six) hours if needed for mild pain. 90 tablet 3 5 Active Ferrous Sulfate (iron) 325 (65 Fe) MG tabletIndications :Other chronic pancreatitis (HCC),Microcytic anemia TAKE ONE TABLET EVERY MORNING WITH BREAKFAST 90 tablet 3 5 Active cholecalciferol VITAMIN D (Vitamin D-3) 50 MCG (1999 UT) capsuleIndication s:Acute midline low back pain without sciatica TAKE ONE CAPSULE EVERY DAY 90 capsule 3 5 Active pantoprazole (ProtoNix) 40 MG EC tabletIndications :Other chronic pancreatitis (HCC),Microcytic anemia TAKE ONE TABLET EVERY MORNING WITH BREAKFAST 90 tablet 3 5 Active Ascorbic Acid (vitamin C) 500 MG tabletIndications :Other chronic pancreatitis (HCC) TAKE ONE TABLET EVERY DAY 90 tablet 3 5 Active Multiple Vitamins-Iron (Tab-A-Susan/Iron/ Beta Carotene) tabletIndications :Other chronic pancreatitis (HCC),Microcytic anemia TAKE ONE TABLET EVERY DAY 90 tablet 3 5 Active metoclopramide (Reglan) 10 MG tabletIndications :Microcytic anemia TAKE ONE TABLET TWICE DAILY 60 tablet 1 5 Active Diclofenac Sodium 1 % gelIndications:Ac mehdi pain of both knees APPLY TOPICALLY TO AFFECTED AREA(s) TWO GRAMS, USE THREE TIMES DAILY DIRECTED 100 g 5 Active baclofen (Lioresal) 10 MG tabletIndications :Pain in both knees, unspecified chronicity Take 1 tablet (10 mg) by mouth if needed in the morning, at noon, and at bedtime for muscle spasms for up to 10 days. 30 tablet 5 Active Active Problems Problem Noted Date Diagnosed Date Microcytic anemia 06/01/2024 Primary hypertension 05/02/2024 Postinflammatory hyperpigmentation 03/11/2023 Assessment & Plan (03/11/2023 11:47 AM EST): Patient that presented visit with concerns of hyperpigmentation on abdomen will be referred to Dermatology. Hypertriglyceridemia 11/14/2020 Other chronic pancreatitis 11/14/2020 Encounters Date Type Department Care Team Description 11/28/2024 Orders Only GENERIC EXTERNAL DATA DEPARTMENT Provider, Generic External Data 11/22/2024 Telephone [facility] [address] [place] [address] Jojo Seymour MD 11/18/2024 9:40 AM EDT Office Visit [facility] [address], [place] [phone] Zac Dang MD Pain in both knees, unspecified chronicity (Primary Dx) 11/18/2024 Travel from Last 3 Months Immunizations Immunization Administration [...] DTaP/Tdap/Td Vaccines (1 - Tdap) 1995 Hepatitis A Vaccines (1 of 2 - Risk 2-dose series) 1995 Hepatitis B Vaccines (3 of 3 [...] Priority Date/Time Associated Diagnosis Comments LIPASE Routine 11/28/2024 9:57 AM EDT HEPATIC FUNCTION PANEL Routine 9:57 AM EDT HEREDITARY HEMOCHROMATOSIS DNA MUTATION ANALYSIS Routine 11/28/2024 12:00 AM EDT LIPID PANEL, STANDARD Routine 09/19/2024 8:46 AM EDT ZZZ HISTORICAL HPV E6/E7 RFLX MEDINA 16 18/45 Routine 02/05/2022 2:44 PM EST PAP SMEAR Routine 02/05/2022 2:44 PM EST MAMMOGRAM GENERIC Routine 11/29/2020 10: 00 AM EDT from Last 3 Months or Most Recently Relevant to Health Maintenance Results * Lipase (11/28/2024 9:57 AM EDT) Pathologist [facility] Lipase 42 8 - 78 U/L [facility] 11/28/2024 9:57 AM EDT 11/28/2024 11:13 AM EDT us Generic External Data Provider LAB BLOOD ORDERAB LES Final Result [facility] [address] [place] [phone] * (ABNORMAL) Hepatic Function Panel (11/28/2024 9:57 AM EDT) Bilirubin, Total 0.3 0.0 - 1.0 mg/dL [facility] Bilirubin, Direct <0.1 0.0 - 0.5 mg/dL [facility] Aspartate Amino Transferase 25 5 - 31 U/L [facility] Alanine Aminotransferase 27 0 - 31 U/L [facility] Total Protein 8.1(H) 6.5 - 8.0 g/dL [facility] Albumin Level 4.1 3.5 - 5.0 g/dL [facility] Alkaline Phosphatase 120(H) 39 - 117 U/L [facility] 11/28/2024 9:57 AM EDT 11/28/2024 11:13 AM EDT us Generic External Data Provider LAB BLOOD ORDERAB LES Final Result [facility] [address] [place] [address] [phone] * Hereditary Hemochromatosis DNA Mutation Analysis (11/28/2024 12:00 AM EDT) Hereditary Hemochromatosis DNA Mutation See Below [facility] Comment: RESULT: NEGATIVEInterpretation: DNA testing indicates that this individualis negative for the C282Y and H63D pathogenic variants inthe HFE gene. This negative result significantly reduces thelikelihood of hereditary hemochromatosis (HH) in thisindividual. However, it does not rule out the presence ofother pathogenic variants within the HFE gene or a diagnosisof HH. The risk of this individual to carry an HFEpathogenic variant other than those tested in this assaydepends greatly on family and clinical history as well asethnicity. This assay does not test for other primary orsecondary iron overload disorders.Laboratory testing supervised and results monitored byJulius Benavidez, Ph.D., FAC, [facility], [facility].DETAILED ASSAY INFORMATION: Hereditary hemochromatosis (HH)is an autosomal recessive disorder of iron metabolism thatcan result in iron overload and potential organ failure. Itis one of the most common genetic disorders in individualsof - ancestry, with an estimated carrierfrequency of 10%. HH is caused by pathogenic variants in theHFE gene. Most individuals with HH (60-90%) are homozygousfor the C282Y pathogenic variant. A smaller percentage ofaffected individuals are either compound heterozygous forthe C282Y and H63D pathogenic variants (3%-8%), orhomozygous for the H63D pathogenic variant (approximately1%).METHODOLOGY: This assay detects two pathogenic variants inthe HFE gene, C282Y (NM 698752.2: c.845G>A, p.Wug420Crm) dxcP60S (NM 405986.2: c.187C>G, p.Wsh18Mrs), that are commonlyassociated with HH. These variants are detected bymultiplex-polymerase chain reaction (PCR) amplification,followed by restriction enzyme digestion and capillaryelectrophoresis.LIMITATIONS: This assay does not detect other pathogenicvariants in the HFE gene that may be associated with HH.Although rare, false positive or false negative results mayoccur. All results should be interpreted in the context ofclinical findings, relevant history, and other laboratorydata.Health care providers, please contact your local [facility]' genetic counselor or call [phone] for assistance with the interpretation ofthese results.This test was developed and its analytical performancecharacteristics have been determined by [facility]. It has not beencleared or approved by FDA. This assay has been validatedpursuant to the CLIA regulations and is used for clinicalpurposes.For more information, please refer tohttp://education.Keepstream.Matchbox/faq/hemochromatosis.(This link is being provided for informational/educationalpurposes only.)A portion of the testing was performed at [facility].Reviewed and signed by Laboratory testing supervised katelyn monitored by Julius Benavidez, Ph.D., FAC, [facility], Signed on 12/05/2024 at 12:45THIS TEST WAS PERFORMED AT:[employer] [id number] [place] [address]QYQBYATIYA RUEDA MD,PHD,SALONI 11/28/2024 11/28/2024 us Generic External Data Provider LAB BLOOD ORDERAB LES Final Result [facility] [address] [place] [phone] * (ABNORMAL) Lipid Panel, Standard (09/19/2024 8:46 AM EDT) Triglycerides 845(H) <150 mg/dL [facility] Comment:Desirable Triglyceri de: less than 150 mg/dLBorderline High Triglyceride 150-199 mg/dLHigh Triglyceride: 200-499 mg/dLVery High Triglyceride: greater than or equal to 5OO mg/dL Cholesterol 274(H) <200 mg/dL [facility] Comment:Desirable Cholestero l: less than 200 mg/dLBorderline High Cholesterol: 200-239 mg/dLHigh Cholesterol: greater than 239 mg/dL LDL Cholesterol Calculated TNP <100 mg/dL [facility] Comment:Unable to calculate the LDL. The formula of Friedwald,Duarte, and Marquis is only valid if the triglycerides areless than 400 mg/dl. HDL Cholesterol 35(L) >40 mg/dL [facility] Comment:Desirable HDL: great er than 40 mg/dL Note: This HDL assay may give artificially low results in patients with liver disease. 09/19/2024 8:46 AM EDT 09/19/2024 8:46 AM EDT us Generic External Data Provider LAB BLOOD ORDERAB LES Final Result [facility] [address] [place] [phone] [phone] * (ABNORMAL) HPV E6/E7 RFLX MEDINA 16 18/45 (02/05/2022 2:44 PM EST) HPV 16 RNA DETECTED(A) NOT DETECTED [facility] HPV 18/45 RNA NOT DETECTED NOT DETECTED [facility] Comment: Methodology: [employer]ist Mediated Amplification Cervical sources are required for HPV testing. If a vaginal source from a patient who has had a total hysterectomy with removal of cervix was submitted, please contact the testing laboratory for alternative testing options. THIS TEST WAS PERFORMED AT: [facility] [address] [place] [address] [address],[place] [address] GUERO NIELSEN MD HPV mRNA E6/E7 rflx Detected(A) Not Detected [facility] Comment: Methodology: [employer]ist-Mediated Amplification This assay detects E6/E7 viral messenger RNA (mRNA) from 14 high-risk HPV types (16,18,31,33,35,39,45,51,52,56,58,59,66,68). Cervical sources are required for HPV testing. If a vaginal source from a patient who has had a total hysterectomy with removal of cervix was submitted, please contact the testing laboratory for alternative testing options. For additional information, please refer to http://education.Simple Lifeforms/faq/WZB076c8 (This link if provided for information/ educational purposes only.) THIS TEST WAS PERFORMED AT: [facility] [address] [place] [address],[place] [address] GUERO NIELSEN MD 02/05/2022 2:44 PM EST Rusty Rodriguez MD HISTORICAL/NON ORDERABLE LABS Fi nal Result [facility] * Pap Smear (02/05/2022 2:44 PM EST) 02/05/2022 2:44 PM EST 02/06/2022 9:50 AM EST Narrative [facility] - 03/03/2022 12:04 PM EST ----- ------- Name: Gauri Taismadriane Garrison Age/Sex: 46/F : 1975 [id number] Unit#: [id number] Attend Dr: Rusty Rodriguez MD Re02/05/22 Status: DEP REF Location: .LAB Disch: ----- ------- SPEC : [id number] RECD: 02/06/22 STATUS: MALCOLM LEVY NUM: [id number] LOU: 02/05/[address] [facility] [address]: Rusty Rodriguez MD ENTERED: 02/06/22 SP [...] RNA: Not Detected HPV testing performed by [facility], [place], [place]. See reference laboratory portion of the EMR for entire report. Clinical Information LMP: 02/10 Previous PAP test: 2009, WNL Material Received ThinPrep-Cervical Copies To: Jojo Seymour MD [address] [place] [address] [phone] Rusty Rodriguez MD [address] [place], [place] [phone] [address] [address] ----- ------- Signed (signature on file) Aroldo Danielle MD 03/03/22 2523 ----- ------- END OF REPORT [facility] External Provider LAB CYT OLOGY ORDERABLES Final Result [facility] [address] [place] [phone] [phone] * Mammography Report 1 (11/29/2020 10:00 [...] Most Recently Relevant to Health Maintenance Insurance [employer] Care Teams Engineer Sergeant Relationship Specialty Start Date End Date Jojo Seymour MD [address] [place] [address] PCP - General Internal Medicine 12/03/20 Julio [facility] 04/25/24
--- OUTSIDE RECORDS SUMMARY | 2025-02-07 16:29 | XMS_ITS | Encounter Summary ---
Author Organization [facility] Address [address] [place] [address] Phone Care Team Providers Care Supervisor Paper Machine Name Role Phone Jojo Seymour MD Primary Care Provider [phone] Encounter Details Date Type Department Care Team ([facility] st Contact Info) Description 05/21/2020 Orders Only [facility] [address] [place] [phone] ProviderRandal MD Social History Tobacco Use Types [...] on filedocumented in this encounter Care Teams Supervisor Paper Machine Relationship Specialty Start Date End Date Jojo Seymour MD [address] [place] [address] [phone] PCP - General Internal Medicine 10/19/22 documented as of this encounter
--- OUTSIDE RECORDS SUMMARY | 2025-02-07 16:29 | XMS_ITS | Encounter Summary ---
Author Organization [facility] Address [address] [place] [address] Care Team Providers Care Shellfish Weigher Name Role Phone Jojo Seymour Primary Care Provider [phone] Encounter Details Date Type Department Care Team (Late st Contact Info) Description 04/11/2024 Lab Requisition [facility] [address] [place] [address] Juan M Conroy MD [address] [place] [address] Acute respiratory failure, unspecified whether with hypoxia [...] Seen, 0-2 /HPF 04/11/2024 11:08 AM EST [facility] WBC, Urine 0-2 None Seen, 0-2 /HPF 04/11/2024 11:08 AM EST [facility] Squamous Epithelial Cells, Urine 3-5 /HPF 04/11/2024 11:08 AM EST [facility] Calcium Oxalate Crystals, Urine Occasional /HPF 04/11/2024 11:08 AM EST [facility] Bacteria, Urine Occasional(A) None Seen /HPF 04/11/2024 11:08 AM EST [facility] Urine Urine specimen collection, clean catch / Unknown Non-Blood Collection / Unknown 04/11/2024 9:30 AM EST 04/11/2024 9:58 AM EST Juan M Conroy MD LAB URINE ORDERABLES Final Result Performing Organization Address City/State/[facility] Co de Phone Number [facility] [address] [place] [address] [address] [place] [address], * Hemoglobin A1c (04/11/2024 9:30 AM EST) Hemoglobin A1c 5.2 4.0 - 5.7 % 04/11/2024 10:30 AM EST [facility] Estimated Average Glucose 103 mg/dL 04/11/2024 10:30 AM EST [facility] Blood Structure of peripheral vein / Unknown Venipuncture / Unknown 04/11/2024 9:30 AM EST 04/11/2024 9:31 AM EST Juan M Conroy MD LAB BLOOD ORDERABLES Final Result Performing Organization Address [facility]/ZIP Co de Phone Number [facility] [address] [address], [place] [phone] * Christian Top, Urine (04/11/2024 9:30 AM EST) Extra Tube Hold for add-ons. 04/11/2024 2:05 PM EST [facility] Comment:Auto resulted. Urine Urine specimen collection, clean catch / Unknown Non-Blood Collection / Unknown 04/11/2024 9:30 AM EST 04/11/2024 9:31 AM EST us Juan M Conroy MD LAB URINE ORDERABLES Final Result Performing Organization Address [facility] de Phone Number [facility] [address] [address], [place] [phone] * (ABNORMAL) Urinalysis W/Reflex to Microscopic & Culture (04/11/2024 9:30 AM EST) Color, Urine Yellow Yellow 04/11/2024 9:58 AM EST [facility] Clarity, Urine Clear Clear 04/11/2024 9:58 AM EST [facility] Specific [place], Urine 1.020 1.005 - 1.030 04/11/2024 9:58 AM EST [facility] pH, Urine 7.5 5.0 - 8.0 04/11/2024 9:58 AM EST [facility] Protein, Urine 30(A) Negative mg/dL 04/11/2024 9:58 AM EST [facility] Glucose, Urine Negative Negative mg/dL 04/11/2024 9:58 AM EST [facility] Ketones, Urine Negative Negative mg/dL 04/11/2024 9:58 AM EST [facility] Bilirubin, Urine Negative Negative 04/11/2024 9:58 AM EST [facility] Blood, Urine Negative Negative 04/11/2024 9:58 AM EST [facility] Nitrite, Urine Negative Negative 04/11/2024 9:58 AM EST [facility] Urobilinogen, Urine 0.2 0.2 - 1.0 E.U./dL 04/11/2024 9:58 AM EST [facility] Leukocyte Esterase, Urine Trace(A) Negative 04/11/2024 9:58 AM EST [facility] Urine Urine specimen collection, clean catch / Unknown Non-Blood Collection / Unknown 04/11/2024 9:30 AM EST 04/11/2024 9:31 AM EST [facility] - 04/11/2024 9:58 AM EST Some urinalysis results will not meet the criteria for reflex urine culture although certain urine values may be abnormal. Additional testing can be ordered by the provider if clinically warranted. Juan M Conroy MD LAB URINE ORDERABLES Final Result Performing Organization Address City/State/[facility] Co de Phone Number [facility] [address] [place] [address] [address] [place] [address], [place] [phone] * (ABNORMAL) CBC Auto Differential (04/11/2024 9:30 AM EST) WBC 11.5(H) 4.8 - 10.8 10*3/uL 04/11/2024 9:50 AM EST [facility] RBC 3.76(L) 4.20 - 5.40 10*6/uL 04/11/2024 9:50 AM EST [facility] Hemoglobin 9.5(L) 11.7 - 15.5 g/dL 04/11/2024 9:50 AM EST [facility] Hematocrit 29.3(L) 35.7 - 45.8 % 04/11/2024 9:50 AM EST [facility] MCV 77.9(L) 81.0 - 99.0 fL 04/11/2024 9:50 AM EST [facility] MCH 25.3(L) 26.0 - 34.0 pg 04/11/2024 9:50 AM [facility] MCHC 32.4 31.0 - 36.0 g/dL 04/11/2024 9:50 AM [facility] RDW 14.7 12.0 - 15.0 % 04/11/2024 9:50 AM [facility] RDW Standard Deviation 41.8 36.4 - 46.3 fL 04/11/2024 9:50 AM [facility] Platelets 285 140 - 440 10*3/uL 04/11/2024 9:50 AM [facility] MPV 9.3(L) 9.4 - 12.3 fL 04/11/2024 9:50 AM [facility] Neutrophil % 68.0 50.0 - 75.0 % 04/11/2024 9:50 AM [facility] Immature Grans % 0.3 0.0 - 0.9 % 04/11/2024 9:50 AM [facility] Lymphocyte % 25.7 20.0 - 44.0 % 04/11/2024 9:50 AM [facility] Monocyte % 4.6 0.0 - 14.0 % 04/11/2024 9:50 AM [facility] Eosinophil % 1.1 0.0 - 5.0 % 04/11/2024 9:50 AM [facility] Basophil % 0.3 0.0 - 2.0 % 04/11/2024 9:50 AM [facility] Neutrophil # 7.84(H) 1.80 - 7.70 10*3/uL 04/11/2024 9:50 AM [facility] Immature Grans # 0.03 0.00 - 0.03 10*3/uL 04/11/2024 9:50 AM [facility] Lymphocyte # 3.00 1.00 - 4.75 10*3/uL 04/11/2024 9:50 AM [facility] Monocyte # 0.50 0.00 - 6.00 10*3/uL 04/11/2024 9:50 AM EST [facility] Eosinophil # 0.10 0.00 - 0.80 10*3/uL 04/11/2024 9:50 AM EST [facility] Basophil # <0.03 0.00 - 0.20 10*3/uL 04/11/2024 9:50 AM EST [facility] nRBC % 0.0 0 - 0 /100 WBCs 04/11/2024 9:50 AM EST [facility] nRBC # <0.01 0.00 - 0.13 10*3/uL 04/11/2024 9:50 AM EST [facility] Blood Structure of peripheral vein / Unknown Venipuncture / Unknown 04/11/2024 9:30 AM EST 04/11/2024 9:31 AM EST Juan M Conroy MD LAB BLOOD ORDERABLES Final Result Performing Organization Address City/[facility]/ZIP Co de Phone Number [facility] [address] [address], [place] [phone] * Vitamin B12 (04/11/2024 9:30 AM EST) Vitamin B12 713 232 - 1,245 pg/mL 04/11/2024 10:29 AM EST [facility] Blood Structure of peripheral vein / Unknown Venipuncture / Unknown 04/11/2024 9:30 AM EST 04/11/2024 9:31 AM EST Juan M Conroy MD LAB BLOOD ORDERABLES Final Result [facility] [address] [address], [place] [phone] * TSH (04/11/2024 9:30 AM EST) TSH 3.590 0.270 - 4.200 uIU/mL 04/11/2024 10:21 AM EST [facility] Comment: Females: 1st trimester 0.150-4.000 IU/mL 2nd trimester 0.310-4.170 IU/mL 3rd trimester 0.380-4.150 IU/mL Blood Structure of peripheral vein / Unknown Venipuncture / Unknown 04/11/2024 9:30 AM EST 04/11/2024 9:31 AM EST Juan M Conroy MD LAB BLOOD ORDERABLES Final Result Performing Organization Address [facility] Co de Phone Number [facility] [address] [address], [place] [phone] * T4, Free (04/11/2024 9:30 AM EST) Free T4 1.12 0.80 - 1.80 ng/dL 04/11/2024 10:21 AM EST [facility] Comment: Females: (ng/dL) First Trimester 0.95-1.58 [...] BLOOD ORDERABLES Final Result Performing Organization Address [facility] Co de Phone Number [facility] [address] [address], [place] [phone] * (ABNORMAL) Phosphorus (04/11/2024 9:30 AM EST) Phosphorus 5.9(H) 2.5 - 4.5 mg/dL 04/11/2024 10:21 AM EST [facility] Blood Structure of peripheral vein / Unknown Venipuncture / Unknown 04/11/2024 9:30 AM EST 04/11/2024 9:31 AM EST us Juan M Conroy MD LAB BLOOD ORDERABLES Final Result Performing Organization Address [facility]/ZIP Co de Phone Number [facility] [address] [address], * Magnesium (04/11/2024 9:30 AM EST) MG 2.0 1.5 - 2.5 mg/dL 04/11/2024 10:21 AM EST [facility] Blood Structure of peripheral vein / Unknown Venipuncture / Unknown 04/11/2024 9:30 AM EST 04/11/2024 9:31 AM EST Juan M Conroy MD LAB BLOOD ORDERABLES Final Result Performing Organization Address [facility] Co de Phone Number [facility] [address] [place] [address], [place] [phone] * N-terminal ProBrain Natriuretic Peptide - [facility] & MEM/AUDREYV/Darrell Only (04/11/2024 9:30 AM EST) Pro-B-Type Natriuretic Peptide 102 <=450 pg/mL 04/11/2024 10:15 AM EST [facility] Comment: RULE IN CHF >/= 450 [...] BLOOD ORDERABLES Final Result Performing Organization Address City/[facility]/ZIP Co de Phone Number [facility] [address] [address], [place] [phone] * Ammonia (04/11/2024 9:30 AM EST) Ammonia 25 11 - 51 umol/L 04/11/2024 10:11 AM EST [facility] Blood Structure of peripheral vein / Unknown Venipuncture / Unknown 04/11/2024 9:30 AM EST 04/11/2024 9:31 AM EST Juan M Conroy MD LAB BLOOD ORDERABLES Final Result Performing Organization Address [facility] Co de Phone Number [facility] [address] [address], [place] [phone] * (ABNORMAL) Basic Metabolic Panel (04/11/2024 9:30 AM EST) NA 136 136 - 145 mmol/L 04/11/2024 10:21 AM EST [facility] K 4.6 3.5 - 5.1 mmol/L 04/11/2024 10:21 AM EST [facility] Cl 100 98 - 109 mmol/L 04/11/2024 10:21 AM EST [facility] CO2 25 22 - 32 mmol/L 04/11/2024 10:21 AM EST [facility] BUN 19 6 - 20 mg/dL 04/11/2024 10:21 AM EST [facility] Creatinine 0.61 0.50 - 1.12 mg/dL 04/11/2024 10:21 AM EST [facility] Glucose 101(H) 60 - 99 mg/dL 04/11/2024 10:21 AM EST [facility] Calcium 9.4 8.4 - 10.4 mg/dL 04/11/2024 10:21 AM EST [facility] Anion Gap 16 >=0 04/11/2024 10:21 AM EST [facility] eGFR >90 >=60 mL/min/1. 73m2 04/11/2024 10:21 AM EST [facility] Comment:The estimated glomer ular filtration rate [...] Conroy MD LAB BLOOD ORDERABLES Final Result [facility] [address] [place] [address] [place] [address], [place] [phone] documented in this encounter Visit Diagnoses Diagnosis Acute respiratory failure, unspecified whether with hypoxia or hypercapnia No diagnosis documented in this encounter Care Teams Shellfish Weigher Relationship Specialty Start Date End Date Jojo Seymour [address] [place] [phone] PCP - General Internal Medicine 03/03/23 documented as of this encounter
--- OUTSIDE RECORDS SUMMARY | 2025-02-07 16:30 | XMS_ITS | Clinical Summary ---
Author Organization [facility] Facility Address [address] [address] Care Team Providers Care Molder Setter Name Role Phone Jojo Seymour MD Primary Care Provider [phone] Social History Tobacco Use Types Packs/Day Years [...] age to complete this topic Insurance Medicaid [place] Care Teams Molder Setter Relationship Specialty Start Date End Date Jojo Seymour MD [address] [place] [address] [phone] PCP - General Internal Medicine 10/19/22
--- OUTSIDE RECORDS SUMMARY | 2025-02-07 16:30 | XMS_ITS | Clinical Summary ---
Author Organization [facility] Address [address] [place] [address] Care Team Providers Care Cat Scan Tech Name Role Phone Jojo Seymour MD Primary [...] trach 12/10/23 for resp failure, intubated with [facility] with no apparent issues at [facility] in ICU setting Difficult airway 12/10/2023 Difficult airway for intubation 12/10/2023 Overview (03/07/2024): DART: Recannulate vs intubate from above- both acceptable Severe malnutrition (HCC) Ac [place]; wt loss >7.5% x 3month, severe muscle [...] drink = 0.6 oz pur e alcohol) [facility] Utilities Answer Date Recorded In the past 12 months has th e Liquefied Natural Gas, gas, oil, or water [employer] threatened to shut off services in your [...] place to sleep or slept in a mcfp (including now)? No 11/08/2023 Comments No Sex [...] 1997 Mammogram 2016 Colonoscopy 2021 Influenza Vaccine 10/20/2024 12/15/2019, 02/10/2019 COVID-19 Vaccine (4 - 2024-2 6 season) 2024 04/18/2021, 08/21/2020, 07/24/2020 Pneumococcal Vaccine: Pediatric (0-5 Years) and At-Risk Patients (6 to 49 Years) Aged Out No longer eligible b ased on patient's age to complete this topic Medical Devices Implanted Type Area Salt Maker Device Identifier Shelf Expiration Date Model / Serial / Lot [id number] Kit Peg 20fr Push Evv Enfit - [id number] Implanted:Qty: 1 on 01/19/2024 by Iglesia Bhagat MD at [facility] Tube N/A: Stomach Mind FactoryAR JENN [id number] 11/19/2024 [id number] / / [id number] 50-7375 Kit Peg Corflo-Ultra Enfit Polyurethane Silicone Jordan L36 - [id number] Implanted:Qty: 1 on 01/26/2024 by Kaiser Petersen MD at [facility] Tube [employer] [id number] / / [id number] Kit Jejunostomy 45cm 16fr Daysi Alejandro Radopq Feed Tube Internal - [id number] Implanted:Qty: 1 on 02/16/2024 by Andre ProceduralistMD at [facility] Tube N/A: Abdomen [employer] [id number] 07/13/2025 [id number] / / [id number] Explanted Type Area Salt Maker Device Identifier Shelf Expiration Date Model / Serial / Lot [id number] Stent Pancreatic 20mm 10mm Axs Sterl Lf Disp Electrocautery - [id number] Implanted:Qty: 1 on 11/17/2023 by Gio Stewart MD at [facility] Explanted:Qty: 1 on 02/15/2024 by Robert Carrero MD at [facility] Stent N/A: Duodenum [employer] JENN [id number] 04/21/2024 [id number] / / [id number] Stent Biliary Zimmon 10fr 4cm Taper Tip Polyethe .035in 2 - [id number] Implanted:Qty: 1 on 02/15/2024 by Robert Carrero MD at [facility] Explanted:Qty: 1 on 02/29/2024 by Brad Beasley MD at [facility] Stent N/A: Bile Duct [email or web address] [id number] 11/01/2026 [id number] / / [id number] Additional Health Concerns Infection Onset Date 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 Meropenem resistant Contact Precautions required with each encounter. Patients will remain on Contact isolation indefinitely with the exception of clinical review by Infection Prevention and Infectious Disease/Epidemiology. 11/29/2023 11/29/2023 Insurance [facility] Advance Directives Documents on File Type Date Recorded Patient Factory Maintenance Manager Expl anation Advance Directive-Scan 01/05/2024 [facility] HEALTH CARE PROXY HH 01/05/24 * Full Code (Latest Code Status on File) Date Activated Date Inactivated Comments 11/06/2023 5:27 PM 04/06/2024 2:20 PM Question Answer Comments Decision Thoroughly Discussed with: Patient * Full Code Date Activated Date Inactivated Comments 10/01/2023 2:29 AM 11/06/2023 4:49 PM Healthcare Agents on File Name Relationship Healthcare Agent Relationship Communication [facility] Healthcare route sales representative 1. Health Care Factory Maintenance Manager Care Teams Cat Scan Tech Relationship Specialty Start Date End Date Jojo Seymour MD [address] [place] [id number] PCP - General General Medicine 10/01/23
== END 2025-02-07 09:14 | disposition home or self-care (01) ==
LOC: HO.HOS 08:52
PROVIDERS: PCP Internal Medicine; Visit Provider Orthopaedic Surgery
DX: S83.242A Other tear of medial meniscus, current injury, left knee, initial encounter (principal)
CPT/HCPCS: 99203

== ENCOUNTER → 2025-02-07 08:51 | Outpatient (BNVA) | payer MEDICAID, SELFPAY | PROVIDERS: PCP Internal Medicine; Visit Provider Orthopaedic Surgery | DX: M25.562 Pain in left knee (principal); S83.242A Other tear of medial meniscus, current injury, left knee, initial encounter | CPT/HCPCS: 99202 ==

== ENCOUNTER 2025-02-27 09:18 | Outpatient (AMB) | payer MEDICAID, SELFPAY ==
--- NOTE | 2025-02-27 09:21 | A.OFFVIS_ITS ---
Vital Signs 02/27/25 09:26 Height 5 ft 2 in Weight 174 lb BMI 31.8 BP 114/80 Blood Pressure Location Rt brachial Position Sitting Pulse 80 Pulse Source Pulse Oximeter Pulse Oximetry (%) 100 Oxygen Delivery Method Room Air Intake Visit Reasons: 3m f/u Intake Note: ESTABLISHED PATIENT for chronic pancreatitis, abd bloating + constipation. CC; C/O rare episodes of incontinence which seems to be associated with any form of takeout foods. Pt states that she used to be able to hold her bowels in episodes of urgency, but finds as of the last few months, that she is no longer able to do this as well. Education Program Coordinator Required: No Accompanied by: Self / Same As Patient Allergies pravastatin Adverse Reaction (Unknown, Verified 02/27/25 09:21) nausea, tired HPI HPI 3m f/u: Details: LAST VISIT: Hx of pancreatitis Hypertriglyceridemia Hyperlipidemia Abdominal bloating Plan Patient will continue taking Creon with meals. Avoid dietary triggers and late night snacking. Staying upright for minimum 3 hours after meals discussed with patient. Patient was encouraged to stay on low fat diet. Follow-up in 3 months, sooner on as needed basis. Patient is agreeable to the plan and verbalizes understanding of instructions. She was given the opportunity to ask questions and all questions answered. ? Thank you for allowing me to participate in her care Orders DNA Analysis Hemochromatosis 11/28/24 R79.89 Lipase 11/28/24 R10.9 Liver Panel 11/28/24 R74.01 TODAY'S VISIT Patient is here today for follow-up. Patient reports that she has been feeling much better. She is getting her strength back after long hospitalization several months ago. Patient reports that she has a good appetite. Mostly currently eating vegetables. Patient is avoiding fatty food. Patient reports that she completely quit drinking alcohol. Patient denies dyspepsia, dysphagia or odynophagia. Patient denies any melena, hematochezia, unintentional weight loss or ribbon like stools. Patient denies any nausea or vomiting. Denies any abdominal pain or discomfort. She does report occasional postprandial diarrhea. [facility] Medical History (Updated 03/05/25 @ 20:15 by Naomy Oshea [facility]) GERD (gastroesophageal reflux disease) Acute lactic acidosis Metabolic acidosis Anemia (~08/2019) Hyperlipidemia Hx of pancreatitis Hypertriglyceridemia Chronic idiopathic constipation Surgical History Hx of colonoscopy History of esophagogastroduodenoscopy (EGD) H/O tubal ligation S/P cholecystectomy Family History Father Hypertension Dyslipidemia Pancreatitis, recurrent Mother Hypertension Diabetes Acute CVA (cerebrovascular accident) Maternal Grandmother Uterine cancer Renal failure Maternal Grandfather CAD (coronary artery disease) Maternal Uncle Myocardial infarction Social History Household Members: Spouse and Children Housing: House Do you presently have visiting nurse or other home services: No Alcohol intake: former Comment: sleeping Patient Tobacco Use Status: Never used Tobacco service: No Current occupational status: unemployed Review of Systems Const Denies weight gain and Denies weight loss ENT Reports no additional complaints, Denies dysphagia and Denies odynophagia Card Reports no additional complaints Resp Reports no additional complaints GI Denies abdominal pain, Denies belching, Denies melena, Reports bloating, Denies change in bowel habits, Denies dysphagia, Denies excessive flatus, Denies dyspepsia, Denies heartburn, Denies diarrhea, Denies loose stools, Denies nausea, Denies odynophagia and Denies vomiting Reports no additional complaints Musc Reports no additional complaints Neuro Reports no additional complaints Psych Reports no additional complaints Endo Reports no additional complaints Physical Exam Vital Signs: Last Vital Signs Pulse 80 02/27/25 09:26 BP 114/80 02/27/25 09:26 Pulse Ox 100 02/27/25 09:26 Oxygen Delivery Method Room Air 02/27/25 09:26 BMI result Body Mass Index 31.8 Const General: healthy appearing, no acute distress and well developed Nutritional Appearance: obese Orientation/consciousness: patient oriented x3 HEENT Head: Yes normal to inspection, Yes normocephalic and Yes atraumatic Face and sinus: Yes normal facial exam Mouth: Normal oral and palatal mucosa present Throat: Yes posterior oropharynx normal, Yes tonsils normal and Yes uvula midline Eyes General: appearance normal, both eyes and all related structures Neck Neck: Yes normal visual inspection, Yes full ROM and Yes trachea midline Thyroid: Thyroid normal Resp Effort & Inspection: normal respiratory effort, able to speak in complete sentences, no tracheal deviation and symmetric chest movement Auscultation: clear to auscultation bilaterally Cardio Rate: regular rate Heart sounds: S1 normal heart sound present and S2 normal heart sound present GI Inspection: Yes normal to inspection, No distended and Yes obesity Palpation (GI): Soft to palpation, not firm, nontender and No hepatosplenomegaly present Auscultation: normal bowel sounds General: Yes no CVA tenderness Back/Spine/Pelvis Back: no CVA tenderness Skin General skin exam: elasticity normal, turgor normal and dry skin Neuro General: patient oriented x3 Psych Appearance: grossly normal Mental Status: mental status grossly normal Speech and movement: Normal speech and movement present Assessment & Plan Assessment & Plan (1) Hx of pancreatitis: Code(s): Z87.19 - Personal history of other diseases of the digestive system Category: Medical (2) Hypertriglyceridemia: Code(s): E78.1 - Pure hyperglyceridemia Category: Medical (3) Hyperlipidemia: Code(s): E78.5 - Hyperlipidemia, unspecified Category: Medical Qualifiers: Hyperlipidemia type: pure hypertriglyceridemia Qualified Code(s): E78.1 - Pure hyperglyceridemia (4) GERD (gastroesophageal reflux disease): Code(s): K21.9 - Gastro-esophageal reflux disease without esophagitis Category: Medical Qualifiers: Esophagitis presence: esophagitis presence not specified Qualified Code(s): K21.9 - Gastro-esophageal reflux disease without esophagitis (5) Abdominal bloating: Code(s): R14.0 - Abdominal distension (gaseous) Plan History of pancreatitis and hypertriglyceridemia. Will repeat like his, liver panel as well as rib is panel. Patient will be sent for MRI of abdomen and recheck her pancreas. She can start taking higher dose of Creon. Reports to be doing well. Continue avoiding of alcohol, carbohydrates, sugar, fatty food. Patient reports that she has changed her diet tremendously. Continue to do so. Increase fluid intake. Fiber and exercise recommended. Patient will continue pantoprazole daily. Follow-up in 2 months, sooner on as needed basis. Patient is agreeable to this plan and verbalizes understanding of instructions. She was given the opportunity to ask questions and all questions answered. Thank you for allowing me to participate in her care Orders: Orders Lipase 02/27/25 R10.9 - Unspecified abdominal pain MR abdomen wo/w con 02/27/25 Z87.19 - Personal history of other diseases of the digestive system Liver Panel 02/27/25 R74.01 - Elevation of levels of liver transaminase levels Lipid Panel 02/27/25 I25.10 - Atherosclerotic heart disease of [place] coronary artery without angina pectoris Medications: New ftbhxf-lozxneog-bnpeaic (pork) 36,000-114,000- 180,000 unit (Creon) administer with meals and/or snacks 1 cap PO QID 120 caps 3RF K86.89 - Other specified diseases of pancreas Discontinued nholia-pmkthnvu-cripeno (pork) 12,000-38,000 -60,000 unit Discontinued Reason: Doctor's Order 1 cap PO QID 120 caps 3RF Coding Level of Care Code Est Pt Level 4 (94587) Add On Problem Visit Only Diagnoses Hx of pancreatitis Z87.19 Hypertriglyceridemia E78.1 Pure hypertriglyceridemia E78.1 Hyperlipidemia type: pure hypertriglyceridemia Gastroesophageal reflux disease, unspecified whether esophagitis present K21.9 Esophagitis presence: esophagitis presence not specified Abdominal bloating R14.0 Time Spent (min) 40 Comment 25 minute spent with patient and additional 15 minutes spent reviewing her records
[2025-02-27 09:26] VITALS: BP 114/80; PULSE 80; O2SAT 100; BMI 31.8
== END 2025-02-27 10:01 | disposition home or self-care (01) ==
LOC: HO.HGI 09:19
PROVIDERS: PCP Internal Medicine; Visit Provider Nurse Practitioner Family
DX: Z87.19 Personal history of other diseases of the digestive system (principal); E78.1 Pure hyperglyceridemia; K21.9 Gastro-esophageal reflux disease without esophagitis; R14.0 Abdominal distension (gaseous)
CPT/HCPCS: 99214

== ENCOUNTER 2025-02-27 09:18 | Outpatient (REF) | payer MEDICAID, SELFPAY ==
--- NOTE | ~2025-02-27 | XR_ITS ---
EXAMINATION: XR KNEE BILATERAL CLINICAL INFORMATION: M25.569 - Pain in unspecified knee COMPARISON: Main 09/12/2024 TECHNIQUE: AP oblique,, lateral views and sunrise views both knees. FINDINGS: Joint space narrowing involving the medial compartment both knees was sclerosis along the reticular surface medial tibial plateaus. No acute fracture or dislocation. No suprapatellar bursa joint effusion. Small exostosis at the quadriceps tendon insertion in the left knee. No lytic or blastic lesions. No soft versus calcifications. XR/XR Knee Ash 3V IMPRESSION: Medial compartment osteoarthrosis/osteoarthritis. Electronically signed by: Chris Canseco MD 02/27/2025 10:22 AM WANDA
[2025-02-27 12:00] LABS: Alanine Aminotransferase 36 U/L (0-31); Albumin Level 4.3 g/dL (3.5-5.0); Alkaline Phosphatase 124 U/L (39-117); Aspartate Amino Transferase 27 U/L (5-31); Cholesterol 616 mg/dL (<200); HDL Cholesterol 30 mg/dL (>40); Lipase 37 U/L (8-78); Total Protein 8.9 g/dL (6.5-8.0)
[2025-02-27 12:15] LABS: Triglycerides 3083 mg/dL (<150)
== END 2025-02-27 09:19 | disposition home or self-care (01) ==
LOC: HO.XRAY 09:18
PROVIDERS: Absent Provider Physician Assistant; PCP Internal Medicine; Visit Provider Nurse Practitioner Family
DX: K21.9 Gastro-esophageal reflux disease without esophagitis (principal); K86.89 Other specified diseases of pancreas; E78.1 Pure hyperglyceridemia; E78.5 Hyperlipidemia, unspecified; R74.01 Elevation of levels of liver transaminase levels; R14.0 Abdominal distension (gaseous); R10.9 Unspecified abdominal pain; I25.10 Atherosclerotic heart disease of native coronary artery without angina pectoris; Z71.3 Dietary counseling and surveillance; Z79.899 Other long term (current) drug therapy; Z87.19 Personal history of other diseases of the digestive system; Z68.31 Body mass index [BMI] 31.0-31.9, adult
CPT/HCPCS: 36415; 73562; 80061; 80076; 83690; 99212

== ENCOUNTER → 2025-02-27 09:59 | Outpatient (BNV) | payer MEDICAID, SELFPAY | PROVIDERS: Absent Provider Physician Assistant; PCP Internal Medicine; Visit Provider Radiology Diagnostic Radiology | DX: M17.0 Bilateral primary osteoarthritis of knee (principal) | CPT/HCPCS: 73562 ==

== ENCOUNTER → 2025-03-04 18:43 | Outpatient (BNV) | payer MEDICAID, SELFPAY | PROVIDERS: PCP Internal Medicine; Visit Provider Radiology Diagnostic Ultrasound | DX: S83.242A Other tear of medial meniscus, current injury, left knee, initial encounter (principal); M71.22 Synovial cyst of popliteal space [Baker], left knee; M25.462 Effusion, left knee | CPT/HCPCS: 73721 ==

== ENCOUNTER 2025-03-04 18:46 | Outpatient (REF) | payer MEDICAID, SELFPAY ==
--- NOTE | ~2025-03-04 | MR_ITS ---
EXAMINATION: MR KNEE WITHOUT CONTRAST, LEFT CLINICAL INFORMATION: Medial meniscal injury COMPARISON: None available. TECHNIQUE: MRI of the knee without contrast was performed using routine sequences on a high-field scanner. FINDINGS: MENISCI: Medial Meniscus: Intact Lateral Meniscus: Discoid morphology. No tear is seen. LIGAMENTS: Cruciate: ACL is intact. Mild T2 signal in the proximal PCL could reflect mucoid degeneration or sprain. No ligament discontinuity is seen. Collateral: Intact EXTENSOR MECHANISM: Intact ARTICULAR CARTILAGE/BONE: Patellofemoral Compartment: Minimal arthritis. Focus of partial thickness chondral loss in the medial trochlea. Medial Compartment: No significant chondral loss Lateral Compartment: No significant chondral loss No fracture JOINT FLUID AND BURSAE: Small effusion. Small Perdomo's cyst. Question mild T2 signal in some of the proximal muscles of the tibia, nonspecific, could reflect strain or myositis. MR/MR knee LT wo con IMPRESSION: * Discoid lateral meniscus. No tear is seen. * Proximal PCL findings could represent mucoid degeneration or sprain. * Minimal patellofemoral arthritis. * Small effusion. Small Perdomo's cyst. *Question mild edema signal in some of the proximal tibial muscles, could reflect strain or myositis. Electronically signed by: Luis Montano MD 03/05/2025 09:55 AM WANDA
--- OUTSIDE RECORDS SUMMARY | 2025-03-04 18:50 | XMS_ITS | Encounter Summary ---
Author Organization [facility] Address [address] [place] [address] Care Team Providers Care Nursing Home Administrator Name Role Phone Jojo Seymour Primary Care Provider + [phone] Encounter Details Date Type Department Care Team (Late st Contact Info) Description 04/17/2024 Lab Requisition [facility] [address] [place] [address] Mo Starkey PA [address] [place] [address] Acute respiratory failure, unspecified whether with hypoxia [...] of this encounter Procedures * Due to [place] state law, this organization might not be [...] in this encounter Results * Due to [place] state law, this organization might not be sharing negative HIV tests. * (ABNORMAL) Lipase (04/17/2024 12:44 PM EST) Pathologist [facility] Lipase 135(H) 13 - 60 U/L 04/18/2024 10:14 AM EST [facility] Blood Structure of peripheral vein / Unknown Venipuncture / Unknown 04/17/2024 12:44 PM EST 04/17/2024 12:44 PM EST Mo [facility] BLOOD ORDERABLES Final R esult Performing Organization Address City/State/[facility] Co de Phone Number [facility] [address] [place] [address], [place] [phone] * (ABNORMAL) CBC Auto Differential (04/17/2024 12:44 PM EST) [facility] WBC 10.4 4.8 - 10.8 10*3/uL 04/17/2024 1:12 PM EST [facility] RBC 3.99(L) 4.20 - 5.40 10*6/uL 04/17/2024 1:12 PM EST [facility] Hemoglobin 10.0(L) 11.7 - 15.5 g/dL 04/17/2024 1:12 PM EST [facility] Hematocrit 31.1(L) 35.7 - 45.8 % 04/17/2024 1:12 PM EST [facility] MCV 77.9(L) 81.0 - 99.0 fL 04/17/2024 1:12 PM EST [facility] MCH 25.1(L) 26.0 - 34.0 pg 04/17/2024 1:12 PM EST [facility] MCHC 32.2 31.0 - 36.0 g/dL 04/17/2024 1:12 PM EST [facility] RDW 15.3(H) 12.0 - 15.0 % 04/17/2024 1:12 PM EST [facility] RDW Standard Deviation 43.8 36.4 - 46.3 fL 04/17/2024 1:12 PM EST [facility] Platelets 278 140 - 440 10*3/uL 04/17/2024 1:12 PM [facility] MPV 9.9 9.4 - 12.3 fL 04/17/2024 1:12 PM EST [facility] Neutrophil % 65.1 50.0 - 75.0 % 04/17/2024 1:12 PM [facility] Immature Grans % 0.4 0.0 - 0.9 % 04/17/2024 1:12 PM EST [facility] Lymphocyte % 27.9 20.0 - 44.0 % 04/17/2024 1:12 PM [facility] Monocyte % 4.5 0.0 - 14.0 % 04/17/2024 1:12 PM EST [facility] Eosinophil % 1.8 0.0 - 5.0 % 04/17/2024 1:12 PM EST [facility] Basophil % 0.3 0.0 - 2.0 % 04/17/2024 1:12 PM EST [facility] Neutrophil # 6.74 1.80 - 7.70 10*3/uL 04/17/2024 1:12 PM EST [facility] Immature Grans # 0.04(H) 0.00 - 0.03 10*3/uL 04/17/2024 1:12 PM EST [facility] Lymphocyte # 2.90 1.00 - 4.75 10*3/uL 04/17/2024 1:12 PM EST [facility] Monocyte # 0.50 0.00 - 0.60 10*3/uL 04/17/2024 1:12 PM EST [facility] Eosinophil # 0.20 0.00 - 0.80 10*3/uL 04/17/2024 1:12 PM EST [facility] Basophil # <0.03 0.00 - 0.20 10*3/uL 04/17/2024 1:12 PM EST [facility] nRBC % 0.0 0 - 0 /100 WBCs 04/17/2024 1:12 PM EST [facility] nRBC # <0.01 0.00 - 0.13 10*3/uL 04/17/2024 1:12 PM EST [facility] Blood Structure of peripheral vein / Unknown Venipuncture / Unknown 04/17/2024 12:44 PM EST 04/17/2024 12:44 PM EST us Mo [facility] BLOOD ORDERABLES Final R esult Performing Organization Address City/State/[facility] Co de Phone Number [facility] [address] [place] [address], * (ABNORMAL) Comprehensive Metabolic Panel (04/17/2024 12:44 PM EST) NA 136 136 - 145 mmol/L 04/17/2024 1:17 PM EST [facility] K 4.4 3.5 - 5.1 mmol/L 04/17/2024 1:17 PM EST [facility] Cl 99 98 - 109 mmol/L 04/17/2024 1:17 PM EST [facility] CO2 25 22 - 32 mmol/L 04/17/2024 1:17 PM EST [facility] Anion Gap 16 >=0 04/17/2024 1:17 PM EST [facility] Glucose 95 60 - 99 mg/dL 04/17/2024 1:17 PM EST [facility] Creatinine 0.57 0.50 - 1.12 mg/dL 04/17/2024 1:17 PM EST [facility] Calcium 9.5 8.4 - 10.4 mg/dL 04/17/2024 1:17 PM [facility] Total Protein 7.9 6.6 - 8.7 g/dL 04/17/2024 1:17 PM [facility] Albumin 3.4(L) 3.5 - 5.0 g/dL 04/17/2024 1:17 PM [facility] Bilirubin, Total 0.2 0.2 - 1.2 mg/dL 04/17/2024 1:17 PM [facility] Alkaline Phosphatase 210(H) 40 - 129 U/L 04/17/2024 1:17 PM [facility] AST 34(H) 0 - 33 U/L 04/17/2024 1:17 PM [facility] ALT 41(H) <=33 U/L 04/17/2024 1:17 PM [facility] BUN 23(H) 6 - 20 mg/dL 04/17/2024 1:17 PM [facility] eGFR >90 >=60 mL/min/1. 73m2 04/17/2024 1:17 PM [facility] Comment:The estimated glomer ular filtration [...] 2.1 - 4.2 g/dL 04/17/2024 1:17 PM [facility] A/G Ratio 0.8(L) 1.5 - 3.0 04/17/2024 1:17 PM [facility] Blood Structure of peripheral vein / Unknown Venipuncture / Unknown 04/17/2024 12:44 PM EST 04/17/2024 12:44 PM EST us Mo [facility] BLOOD ORDERABLES Final R esult [facility] [address] [facility] [address] [place] [address], documented in this encounter Visit Diagnoses Diagnosis Acute respiratory failure, unspecified whether with hypoxia or hypercapnia No diagnosis documented in this encounter Care Teams Nursing Home Administrator Relationship Specialty Start Date End Date Jojo Seymour [address] [place] [id number] PCP - General Internal Medicine 03/03/23 documented as of this encounter
--- OUTSIDE RECORDS SUMMARY | 2025-03-04 18:50 | XMS_ITS | Data Portability ---
Author Organization [facility] Address [address] [place] [address] Care Team Providers Care Public Health Informatician Name Role Phone [facility] Primary Care Provider Assessment No assessment recorded. Plan of Treatment Reminders Order Date Submit Date Provider Last Modified By Organization Details Last Modified Time Details Appointments None recorded. Lab urinalysis, dipstick 2022 023 [facility], [address] [place] [address], [phone], 3 19:19:16 culture, urine 2022 023 [facility], [address] [place] [address], [id number], 3 08:06:57 Referral None recorded. Procedures None recorded. Surgeries None recorded. Imaging None recorded. Medication Orders cephalexin 500 mg tablet 2022 023 [id number], [address] [place], [place], [phone], 3 19:19:19 naproxen 500 mg tablet 2022 023 [id number], [address] [place], [place], [id number], 3 19:19:20 Patient TargetsNo targets recorded. Patient Instructions Encounter Date Encounter Id Patient Instructions Last Modified By Organization Details Last Modified Time 10/15/2022 [id number] Female Urinary Tract Infection (UTI): Care Instructions [...] culture, routine FINAL REPORT Not Available [facility] ([facility]) [address] [facility], [place], [address], 10/18/2022 08:06:57 07/27/20 23 10/18/2022 URINE CULTU RE, ROUTI NE result 1 COMMEN T Cultu re shows less than 10,00 0 colon y formi ng units of bacte filomena per shraddha liter of urine . This colon y count is not gener ally consi dered to be clini kehinde signi swati t. Not Available [facility] ([facility]) [address] [facility], [place], [address], 10/18/2022 08:06:57 10/16/1910/15/2022 urina lysis , dipst ick Unknown Analyte Normal = light yellow Not Available [address] [place] [address], [place], [address], 10/15/2022 18:38:03 10/16/19 23 10/15/2022 urina lysis , dipst ick Unknown Analyte Normal = clear Not Available [address] [place] [address], [place], [address], 10/15/2022 18:38:03 10/16/19 23 10/15/2022 urina lysis , dipst ick Unknown Analyte Normal = negati ve Not Available [address] [place] [address], [place], [address], 10/15/2022 18:38:03 10/16/19 23 10/15/2022 urina lysis , dipst ick Unknown Analyte Normal = Negati ve Not Available [address] [place] [address], [place], [address], 10/15/2022 18:38:03 10/16/19 23 10/15/2022 urina lysis , dipst ick Unknown Analyte Normal = Negati ve Not Available [address] [place] [address], [place], [address], 10/15/2022 18:38:03 10/16/19 23 10/15/2022 urina lysis , dipst ick Unknown Analyte Normal = 1.010, 1.015, 1.020 Not Available lesly chester [address], [place], [address], 10/15/2022 18:38:03 10/16/19 23 10/15/2022 urina lysis , dipst ick Unknown Analyte Normal = Negati ve Not Available [facility] [address], [place], [address], 10/15/2022 18:38:03 10/16/19 23 10/15/2022 urina lysis , dipst ick Unknown Analyte Normal = 6.5, 7.0, 7.5, 8.0 Not Available [facility] [address], [place], [place], [address], 10/15/2022 18:38:03 10/16/19 23 10/15/2022 urina lysis , dipst ick Unknown Analyte Normal = Negati ve Not Available lesly [address], [place], [place], [address], 10/15/2022 18:38:03 10/16/19 23 10/15/2022 urina lysis , dipst ick Unknown Analyte Normal = 0.2, 1.0 Not Available [address] [place] [address], [place], [address], 10/15/2022 18:38:03 10/16/19 23 10/15/2022 urina lysis , dipst ick Unknown Analyte Normal = Negati ve Not Available [facility] [address], [place], [address], 10/15/2022 18:38:03 10/16/19 23 10/15/2022 urina lysis , dipst ick Unknown Analyte Normal = Negati ve Not Available [address] [place] [address], [place], [address], 10/15/2022 18:38:03 10/16/19 23 10/15/2022 urina lysis , dipst ick Unknown Analyte Light Yellow Not Available lesly chester [address], [place], [address], 10/15/2022 18:38:03 10/16/19 23 10/15/2022 urina lysis , dipst ick Unknown Analyte Clear Not Available leo [address], [place], [address], 10/15/2022 18:38:03 10/16/19 23 10/15/2022 urina lysis , dipst ick Unknown Analyte Negati ve Not Available lesly [address], [place], [address], 10/15/2022 18:38:03 10/16/19 23 10/15/2022 urina lysis , dipst ick Unknown Analyte Negati ve Not Available lesyl chester [address], [place], [address], 10/15/2022 18:38:03 10/16/19 23 10/15/2022 urina lysis , dipst ick Unknown Analyte Negati ve Not Available lesly chester [address], [place], [address], 10/15/2022 18:38:03 10/16/19 23 10/15/2022 urina lysis , dipst ick Unknown Analyte 1.030 Not Available alicia[address], [place], [address], 10/15/2022 18:38:03 10/16/19 23 10/15/2022 urina lysis , dipst ick Unknown Analyte Modera te Not Available lesly [address], [place], [address], 10/15/2022 18:38:03 10/16/19 23 10/15/2022 urina lysis , dipst ick Unknown Analyte 5.5 Not Available [address], [place], [address], 10/15/2022 18:38:03 10/16/1910/15/2022 urina lysis , dipst ick Unknown Analyte 300 mg/dL Not Available lesly chester [address], [place], [address], 10/15/2022 18:38:03 10/16/1910/15/2022 urina lysis , dipst ick Unknown Analyte 0.2 E.U./d L Not Available [address]lesly chester [address], [place], [address], 10/15/2022 18:38:03 10/16/19 23 10/15/2022 urina lysis , dipst ick Unknown Analyte Negati ve Not Available [address]lesly chester [address], [place], [address], 10/15/2022 18:38:03 10/16/19 23 10/15/2022 urina lysis , dipst ick Unknown Analyte Negati ve Not Available [address]lesly chester [address], [place], [address], 10/15/2022 18:38:03 Result Notes None recorded. Problems Name Problem SNOMED Code Status Onset Date Resolution Date Notes Provider Name and Address Organization Details Recorded Time Hypertensive disorder 43126647 Active [facility]ud[facility]iatricia joy, [place] - [facility] 18:37:31 Hypercholest erolemia 48854687 Active [facility]ud[facility]iatricia joy, [place] - [facility] 18:37:42 Pancreatitis 29245438 Completed 10/15/2022 Briana joy PA - [facility] 3 18:37:56 Problem Notes None recorded. Procedures Surgical History Date Name Laterality Status Provider Name and Address Organization Details Recorded Time hysterectomy completed [facility] 10/15/2022 18:36:42 Imaging Results None recorded. [...] [Score] - Reported Respiratory rate Oxygen saturation Heart rate Body temperature Systolic And Diastolic Provider Name and Address Organization Details Last Updated DateTime 157.48 cm 35.8 kg/m2 12007.1 g 8 18 /min 98 % 83 /min 97.8 [degF] 145/89 mm[Hg] Gudelia NICOLAS - [facility] 3 18:40:50 Social History Question Answer Notes LastModified by Elastra Details LastModified Time Tobacco Smoking Status Never Smoker [facility] 10/15/2022 18:36:21 Have You Had Direct Contact, Or Contact During Intimacy, With Monkeypox Rash, Scabs, Or Body Fluids From A Person With Monkeypox? No Information not available 10/15/2022 Have You Recently Traveled Abroad? No Information not available 10/15/2022 Sex: Unknown Functional Status Question Answer Note LastModified by Elastra Details LastModified Time Do you use any [...] ICD10 Code Diagnosis IMO Codes Diagnosis Note [id number] [facility] [address] [address] 08/17/2018 09:49:03 08/17/2018 11:36:06 [id number] [place] Mon[place] [address] [address] 10/15/2022 18:12:59 10/15/2022 19:22:32 Acute low back pain 175110311 M54.50 Urinary tr act infectious disease 03004207 N39.0 Health Concerns Section Related Observation LastModified by Organization Detai ls LastModified Time None Recorded Concern Status LastModified by Organization Details LastModified Time None Recorded Advance Directives Directive None Recorded Payers Insurance Date Sequence Insurance Name Policy Number Policy Matute Covered Member ID Matute Member ID Guarantor Name 02/19/2023 1 [place] [facility] Windy Hood [id number] Windy Tai 10/15/2022 1 [facility] [place] [facility] (MEDICAID HMO) [id number] Windy Hood [id number] Windyadriane Tai Notes Date Note Type Note Provider [...] working, patient reportsno. Shelton Monahan NP [address] [place], [address], [place] - [facility] 10/15/2022 19:19:48 OBGyn Episode No OBEpisode recorded.
--- OUTSIDE RECORDS SUMMARY | 2025-03-04 18:50 | XMS_ITS | Encounter Summary ---
Author Organization [employer] Address [address] [place] [address] Care Team Providers Care Bird Tender Name Role Phone Jojo Seymour MD Primary Care Provider [phone] Reason for Referral * Consultation (Routine) - Closed Specialty Diagnoses / Procedures Referred By Contac t Referred To Contact Gastroenterology Diagnoses Other chronic pancreatitis (HCC) Valentino Landis MD [address] [place] [address] Phone: tel: fax: Referral ID Status Reason Start Date Expiration Date V isits Requested Visits Authorized [id number] Closed Specialty Services Required 02/28/2025 02/28/2026 1 1 Encounter Details Date Type Department Care Team ([facility] st Contact Info) Description 02/28/2025 Orders Only [facility] [address] [place] [address] Valentino Landis MD [address] [place] [phone] Other chronic pancreatitis (HCC) (Primary Dx) Social History Tobacco Use Types Packs/Day Years Used Date Smoking Tobacco: Never Passive Smoke Exposure: Never Smokeless Tobacco: Never Alcohol Use Standard [...] as of this encounter Plan of Treatment Scheduled Referrals Name Type Priority Associated Diagnoses Order Schedule Referral to Gastroenterology Outpatient Referral Routine Other chronic pancreatitis (HCC) Expected: 02/28/2025 (Approximate), Expires: 02/28/2026 documented as of this encounter Visit Diagnoses Diagnosis Other chronic pancreatitis (HCC)- Primary documented in this encounter Additional Health Concerns Assessment Noted Time PHQ-9 Depression Total Score: 9 08/16/19 25 3:05 PM EDT documented as of this encounter Care Teams Bird Tender Relationship Specialty Start Date End Date Jojo Seymour MD [address] [place] [address] PCP - General Internal Medicine 12/03/20 Julio NERI 04/25/24 documented as of this encounter
--- OUTSIDE RECORDS SUMMARY | 2025-03-04 18:50 | XMS_ITS | Encounter Summary ---
Author Organization [facility] Address [address] [place] [address] Care Team Providers Care Lockstitch Collar Setter Name Role Phone Jojo Seymour Primary Care Provider + [phone] Encounter Details Date Type Department Care Team (Late st Contact Info) Description 04/24/2024 Lab Requisition [facility] Site [address] [place] [address] [phone] Mo Starkey PA [address] [place] [phone] Acute respiratory failure, unspecified whether with hypoxia [...] 4.8 - 10.8 10*3/uL 04/24/2024 10:31 AM [facility] RBC 3.94(L) 4.20 - 5.40 10*6/uL 04/24/2024 10:31 AM [facility] Hemoglobin 9.8(L) 11.7 - 15.5 g/dL 04/24/2024 10:31 AM [facility] Hematocrit 30.5(L) 35.7 - 45.8 % 04/24/2024 10:31 AM [facility] MCV 77.4(L) 81.0 - 99.0 fL 04/24/2024 10:31 AM [facility] MCH 24.9(L) 26.0 - 34.0 pg 04/24/2024 10:31 AM [facility] MCHC 32.1 31.0 - 36.0 g/dL 04/24/2024 10:31 AM [facility] RDW 15.1(H) 12.0 - 15.0 % 04/24/2024 10:31 AM [facility] RDW Standard Deviation 42.6 36.4 - 46.3 fL 04/24/2024 10:31 AM [facility] Platelets 219 140 - 440 10*3/uL 04/24/2024 10:31 AM [facility] MPV 10.1 9.4 - 12.3 fL 04/24/2024 10:31 AM EST [facility] Neutrophil % 61.4 50.0 - 75.0 % 04/24/2024 10:31 AM EST [facility] Immature Grans % 0.3 0.0 - 0.9 % 04/24/2024 10:31 AM EST [facility] Lymphocyte % 29.7 20.0 - 44.0 % 04/24/2024 10:31 AM EST [facility] Monocyte % 6.6 0.0 - 14.0 % 04/24/2024 10:31 AM [facility] Eosinophil % 1.9 0.0 - 5.0 % 04/24/2024 10:31 AM [facility] Basophil % 0.1 0.0 - 2.0 % 04/24/2024 10:31 AM [facility] Neutrophil # 4.22 1.80 - 7.70 10*3/uL 04/24/2024 10:31 AM [facility] Immature Grans # <0.03 0.00 - 0.03 10*3/uL 04/24/2024 10:31 AM [facility] Lymphocyte # 2.00 1.00 - 4.75 10*3/uL 04/24/2024 10:31 AM [facility] Monocyte # 0.50 0.00 - 0.60 10*3/uL 04/24/2024 10:31 AM EST [facility] Eosinophil # 0.10 0.00 - 0.80 10*3/uL 04/24/2024 10:31 AM [facility] Basophil # <0.03 0.00 - 0.20 10*3/uL 04/24/2024 10:31 AM [facility] nRBC % 0.0 0 - 0 /100 WBCs 04/24/2024 10:31 AM [facility] nRBC # <0.01 0.00 - 0.13 10*3/uL 04/24/2024 10:31 AM [facility] Blood Structure of peripheral vein / Unknown Venipuncture / Unknown 04/24/2024 9:56 AM EST 04/24/2024 9:56 AM EST us [facility] BLOOD ORDERABLES Final R esult Performing Organization Address [facility]/ZIP Co de Phone Number [facility] [address] [address], [place] [phone] * (ABNORMAL) Lipase (04/24/2024 9:56 AM EST) Lipase 614(H) 13 - 60 U/L 04/24/2024 11:17 AM EST [facility] Comment:ALL DELTAS REVIEWED Blood Structure of peripheral vein / Unknown Venipuncture / Unknown 04/24/2024 9:56 AM EST 04/24/2024 9:56 AM EST [facility] BLOOD ORDERABLES Final R esult Performing Organization Address [facility] Co de Phone Number [facility] [address] [place] [address], [place] [phone] * (ABNORMAL) Amylase (04/24/2024 9:56 AM EST) Amylase 337(H) 28 - 127 U/L 04/24/2024 10:45 AM EST [facility] Blood Structure of peripheral vein / Unknown Venipuncture / Unknown 04/24/2024 9:56 AM EST 04/24/2024 9:56 AM EST us [facility] BLOOD ORDERABLES Final R esult Performing Organization Address City/[facility]/ZIP Co de Phone Number [facility] [address] [address], [place] [phone] * (ABNORMAL) Comprehensive Metabolic Panel (04/24/2024 9:56 AM EST) NA 135(L) 136 - 145 mmol/L 04/24/2024 10:45 AM [facility] K 4.2 3.5 - 5.1 mmol/L 04/24/2024 10:45 AM [facility] Cl 99 98 - 109 mmol/L 04/24/2024 10:45 AM [facility] CO2 25 22 - 32 mmol/L 04/24/2024 10:45 AM [facility] Anion Gap 15 >=0 04/24/2024 10:45 AM [facility] Glucose 106(H) 60 - 99 mg/dL 04/24/2024 10:45 AM [facility] Creatinine 0.59 0.50 - 1.12 mg/dL 04/24/2024 10:45 AM [facility] Calcium 9.7 8.4 - 10.4 mg/dL 04/24/2024 10:45 AM [facility] Total Protein 7.8 6.6 - 8.7 g/dL 04/24/2024 10:45 AM [facility] Albumin 3.4(L) 3.5 - 5.0 g/dL 04/24/2024 10:45 AM [facility] Bilirubin, Total 0.3 0.2 - 1.2 mg/dL 04/24/2024 10:45 AM [facility] Alkaline Phosphatase 188(H) 40 - 129 U/L 04/24/2024 10:45 AM [facility] AST 25 0 - 33 U/L 04/24/2024 10:45 AM [facility] ALT 25 <=33 U/L 04/24/2024 10:45 AM [facility] BUN 28(H) 6 - 20 mg/dL 04/24/2024 10:45 AM [facility] eGFR >90 >=60 mL/min/1. 73m2 04/24/2024 10:45 AM [facility] Comment:The estimated glomer ular [...] - 4.2 g/dL 04/24/2024 10:45 AM EST [facility] A/G Ratio 0.8(L) 1.5 - 3.0 04/24/2024 10:45 AM EST [facility] Blood Structure of peripheral vein / Unknown Venipuncture / Unknown 04/24/2024 9:56 AM EST 04/24/2024 9:56 AM EST [facility] BLOOD ORDERABLES Final R esult Performing Organization Address City/State/[facility] Co de Phone Number [facility] [address] [facility] [address] [place] [address], documented in this encounter Visit Diagnoses Diagnosis Acute respiratory failure, unspecified whether with hypoxia or hypercapnia No diagnosis documented in this encounter Care Teams Lockstitch Collar Setter Relationship Specialty Start Date End Date Jojo Seymour [address] [place] [phone] PCP - General Internal Medicine 03/03/23 documented as of this encounter
--- OUTSIDE RECORDS SUMMARY | 2025-03-04 18:50 | XMS_ITS | Encounter Summary ---
Author Organization [employer] Address [address] [facility] 7 [place] [address] Care Team Providers Care Lumber Tripper Name Role Phone Jojo Seymour MD Primary Care Provider [phone] Encounter Details Date Type Department Care Team (Late st Contact Info) Description 06/01/2024 Orders Only [facility] [address] [place] [address] Jojo Seymour MD [address] [place] [address] Other chronic pancreatitis (CMS/HCC) (Primary Dx); Acute [...] documented as of this encounter Care Teams Lumber Tripper Relationship Specialty Start Date End Date Jojo Seymour MD [address] [place] [address] PCP - General Internal Medicine 12/03/20 Julio NERI 04/25/24 documented as of this encounter
--- OUTSIDE RECORDS SUMMARY | 2025-03-04 18:50 | XMS_ITS | Encounter Summary ---
Author Organization [facility] Address [address] [place] [address] Care Team Providers Care Taper/Finisher Name Role Phone Jojo Seymour Primary Care Provider + [phone] Encounter Details Date Type Department Care Team (Late st Contact Info) Description 04/20/2024 Lab Requisition [facility] [address] [place] [address] Natalia Oropeza MD [address] [place] [address] Acute respiratory failure, unspecified whether with hypoxia [...] of this encounter Procedures * Due to [place] law, this organization might not be sharing negative HIV tests. Procedure Name Priority Date/Time Associated Diagnosis Comments LIPASE Routine 04/20/2024 9:53 AM EST Acute respiratory failure, unspecified whether with hypoxia or hypercapnia (HCC) No diagnosis documented in this encounter Results * Due to [place] law, this organization might not be sharing negative HIV tests. * (ABNORMAL) Lipase (04/20/2024 9:53 AM EST) Lipase 108(H) 13 - 60 U/L 04/20/2024 11:07 AM EST [facility] Blood Structure of peripheral vein / Unknown Venipuncture / Unknown 04/20/2024 9:53 AM EST 04/20/2024 9:53 AM EST us Natalia Oropeza MD LAB BLOOD ORDERABLES Final Res ult [facility] [address] [place] [address], documented in this encounter Visit Diagnoses Diagnosis Acute respiratory failure, unspecified whether with hypoxia or hypercapnia No diagnosis documented in this encounter Care Teams Taper/Finisher Relationship Specialty Start Date End Date Jojo Seymour [address] [place] [address] PCP - General Internal Medicine 03/03/23 documented as of this encounter
--- OUTSIDE RECORDS SUMMARY | 2025-03-04 18:50 | XMS_ITS | Encounter Summary ---
Author Organization [facility] Address [address] [place] [address] Care Team Providers Care Rod Buster Helper Name Role Phone Jojo Seymour Primary Care Provider + [phone] Encounter Details Date Type Department Care Team (Late st Contact Info) Description 04/01/2024 Lab Requisition [facility] Site [address] [place] [address] [phone] Aga Infante MD [address] [place] [address] [place] [address] Acute respiratory failure, unspecified whether with hypoxia [...] this encounter Procedures * Due to [place] state law, [...] this encounter Results * Due to [place] state law, this organization might not be sharing negative HIV tests. * (ABNORMAL) CBC Auto Differential (04/01/2024 5:45 AM EST) WBC 8.9 4.8 - 10.8 10*3/uL 04/01/2024 10:44 AM EST [facility] RBC 3.85(L) 4.20 - 5.40 10*6/uL 04/01/2024 10:44 AM EST [facility] Hemoglobin 9.9(L) 11.7 - 15.5 g/dL 04/01/2024 10:44 AM EST [facility] Hematocrit 30.3(L) 35.7 - 45.8 % 04/01/2024 10:44 AM EST [facility] MCV 78.7(L) 81.0 - 99.0 fL 04/01/2024 10:44 AM EST [facility] MCH 25.7(L) 26.0 - 34.0 pg 04/01/2024 10:44 AM EST [facility] MCHC 32.7 31.0 - 36.0 g/dL 04/01/2024 10:44 AM EST [facility] RDW 14.8 12.0 - 15.0 % 04/01/2024 10:44 AM EST [facility] RDW Standard Deviation 42.4 36.4 - 46.3 fL 04/01/2024 10:44 AM EST [facility] Platelets 396 140 - 440 10*3/uL 04/01/2024 10:44 AM EST [facility] MPV 9.3(L) 9.4 - 12.3 fL 04/01/2024 10:44 AM EST [facility] Neutrophil % 57.6 50.0 - 75.0 % 04/01/2024 10:44 AM EST [facility] Immature Grans % 0.2 0.0 - 0.9 % 04/01/2024 10:44 AM EST [facility] Lymphocyte % 34.5 20.0 - 44.0 % 04/01/2024 10:44 AM EST [facility] Monocyte % 5.6 0.0 - 14.0 % 04/01/2024 10:44 AM EST [facility] Eosinophil % 1.7 0.0 - 5.0 % 04/01/2024 10:44 AM EST [facility] Basophil % 0.4 0.0 - 2.0 % 04/01/2024 10:44 AM EST [facility] Neutrophil # 5.12 1.80 - 7.70 10*3/uL 04/01/2024 10:44 AM EST [facility] Immature Grans # <0.03 0.00 - 0.03 10*3/uL 04/01/2024 10:44 AM EST [facility] Lymphocyte # 3.10 1.00 - 4.75 10*3/uL 04/01/2024 10:44 AM EST [facility] Monocyte # 0.50 0.00 - 6.00 10*3/uL 04/01/2024 10:44 AM EST [facility] Eosinophil # 0.20 0.00 - 0.80 10*3/uL 04/01/2024 10:44 AM EST [facility] Basophil # <0.03 0.00 - 0.20 10*3/uL 04/01/2024 10:44 AM EST [facility] nRBC % 0.0 0 - 0 /100 WBCs 04/01/2024 10:44 AM EST [facility] nRBC # <0.01 0.00 - 0.13 10*3/uL 04/01/2024 10:44 AM EST [facility] Blood Structure of peripheral vein / Unknown 04/01/2024 5:45 AM EST 04/01/2024 9:20 AM EST us Aga Infante MD LAB BLOOD ORDERABLES Final Res ult [facility] [address] [place] [address], * (ABNORMAL) Basic Metabolic Panel (04/01/2024 5:45 AM EST) NA 136 136 - 145 mmol/L 04/01/2024 10:56 AM EST [facility] K 4.3 3.5 - 5.1 mmol/L 04/01/2024 10:56 AM EST [facility] Cl 98 98 - 109 mmol/L 04/01/2024 10:56 AM EST [facility] CO2 27 22 - 32 mmol/L 04/01/2024 10:56 AM EST [facility] BUN 25(H) 6 - 20 mg/dL 04/01/2024 10:56 AM EST [facility] Creatinine 0.57 0.50 - 1.12 mg/dL 04/01/2024 10:56 AM EST [facility] Glucose 144(H) 60 - 99 mg/dL 04/01/2024 10:56 AM EST [facility] Calcium 9.3 8.4 - 10.4 mg/dL 04/01/2024 10:56 AM EST [facility] Anion Gap 15 >=0 04/01/2024 10:56 AM EST [facility] eGFR >90 >=60 mL/min/1. 73m2 04/01/2024 10:56 AM EST [facility] Comment:The estimated glomer ular filtration [...] MD LAB BLOOD ORDERABLES Final Res ult [facility] [address] [facility] [address] [place] [address], documented in this encounter Visit Diagnoses Diagnosis Acute respiratory failure, unspecified whether with hypoxia or hypercapnia No diagnosis documented in this encounter Care Teams Rod Buster Helper Relationship Specialty Start Date End Date Jojo Seymour [address] [place] [address] PCP - General Internal Medicine 03/03/23 documented as of this encounter
--- OUTSIDE RECORDS SUMMARY | 2025-03-04 18:50 | XMS_ITS | Clinical Summary ---
Author Organization [facility] Address [address] [place] [address] Care Team Providers Care Inventory Control Clerk Name Role Phone Jojo Seymour MD Primary Care Provider [phone] Allergies No known active allergies Medications ondansetron [...] trach 12/10/23 for resp failure, intubated with [place] [facility] with no apparent issues at [facility] in ICU setting Difficult airway 12/10/2023 Difficult airway for intubation 12/10/2023 Overview (03/07/2024): DART: Recannulate vs intubate from above- both acceptable Severe malnutrition (HCC) [place]; wt loss >7.5% x 3month, severe muscle [...] oz pur e alcohol) [facility] Utilities Answer Date Recorded In the past 12 months has th e hhgregg, gas, oil, or water [employer] threatened to shut off services in your [...] place to sleep or slept in a senior care (including now)? No 11/08/2023 Comments No Sex [...] this topic Medical Devices Implanted Type Area Type Copy Examiner Device Identifier Shelf Expiration Date Model / Serial / Lot [id number] Kit Peg 20fr Push Evv Enfit - [id number] Implanted:Qty: 1 on 01/19/2024 by Iglesia Bhagat MD at [facility] Tube N/A: Stomach [employer] [id number] 11/19/2024 [id number] / / [id number] 50-7365 Kit Peg [employer]-Ultra Enfit Polyurethane Silicone Jordan L36 - [id number] Implanted:Qty: 1 on 01/26/2024 by Kaiser Petersen MD at [facility] Tube [employer] [id number] / / [id number] Kit Jejunostomy 45cm 16fr Daysi Alejandro Radopq Feed Tube Internal - [id number] Implanted:Qty: 1 on 02/16/2024 by Andre ProceduralistMD at [facility] Tube N/A: Abdomen [employer] [id number] 07/13/2025 8250-16 / / [id number] Explanted Type Area Type Copy Examiner Device Identifier Shelf Expiration Date Model / Serial / Lot [id number] Stent Pancreatic 20mm 10mm Axs Sterl Lf Disp Electrocautery - [id number] Implanted:Qty: 1 on 11/17/2023 by Gio Stewart MD at [facility] Explanted:Qty: 1 on 02/15/2024 by Robert Carrero MD at [facility] Stent N/A: Duodenum [employer] [id number] 04/21/2024 [id number] / / [id number] Stent Biliary Zimmon 10fr 4cm Taper Tip Polyethe .035in 2 - [id number] Implanted:Qty: 1 on 02/15/2024 by Robert Carrero MD at [facility] Explanted:Qty: 1 on 02/29/2024 by Brad Beasley MD at [facility] Stent N/A: Bile Duct [employer] [id number] 11/01/2026 [id number] / / [id number] Additional Health Concerns Infection Onset Date 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 Meropenem resistant Contact Precautions required with each encounter. Patients will remain on Contact isolation indefinitely with the exception of clinical review by Infection Prevention and Infectious Disease/Epidemiology. 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 Health Care Music Theory Teacher Care Teams Inventory Control Clerk Relationship Specialty Start Date End Date Jojo Seymour MD [address] [place] [address] PCP - General General Medicine 10/01/23
--- OUTSIDE RECORDS SUMMARY | 2025-03-04 18:50 | XMS_ITS | Clinical Summary ---
Author Organization [facility] Address [address] [place] [address] Care Team Providers Care Sprayer Insecticide Name Role Phone Jojo Seymour Primary Care [...] times a day with meals. 3 Active atorvastatin (LIPITOR) 80 mg tablet [...] 12 hours or as directed. 15 patch Active Active Problems Problem Noted Date Diagnosed [...] Vaccine (#1) 2024 , 02/10/2019 COVID-19 Vaccine (2024-2 6 season) 2024 04/18/2021, 08/21/2020, 07/24/2020 Cervical Cancer Screening 02/05/2025 Pap Smear 02/05/2025 02/05/2022 Pneumococcal Vaccine: Pediatric (0-5 Years) and At-Risk Patients (6-50 Years) Aged Out No longer eligible based on patient's age to complete this topic Insurance [employer] Advance Directives * Presumed Full Code (Latest Code Status on File) Date Activated Date Inactivated Comments 12/19/2022 1:24 PM 12/20/2022 3:33 PM Care Teams Sprayer Insecticide Relationship Specialty Start Date End Date Jojo Seymour [address] [place] [address] PCP - General Internal Medicine 03/03/23
--- OUTSIDE RECORDS SUMMARY | 2025-03-04 18:50 | XMS_ITS | Clinical Summary ---
Author Organization [employer] Address [address] [place] [address] [address] [place] [address] Care Team Providers Care Customer Retention Specialist Name Role Phone Jojo Seymour MD Primary Care Provider [phone] Allergies Active Allergy Reactions Criticality Noted Date Comments Pravastatin 10/15/2022 Other reaction(s): nausea, tired Medications Creon [id number] units capsule TAKE 1 CAPSULE BY MOUTH FOUR TIMES DAILY WITH MEALS AND/OR SNACKS 05/01/19 23 Active melatonin 5 MG tabletIndication s:Primary insomnia 1 tab at bedtime 30 tablet 3 04/21/19 24 Active Blood Pressure kitIndications:P rimary hypertension To use daily 1 kit 05/02/19 25 Active pancrelipase, Gbe-Bgpi-Rtfa, (Creon) 54483-81168 units capsuleIndicatio ns:Hypertriglyce ridemia,Other chronic pancreatitis (HCC) Take 3 capsules (36,000 [...] 25 Active Blood Glucose Monitoring Suppl (FreeStyle Pitkin Lite) w/Device kitIndications:H yperglycemia Use to test [...] (65 Fe) MG tabletIndication s:Other chronic pancreatitis (HCC),Microcytic anemia TAKE ONE TABLET EVERY MORNING WITH BREAKFAST 90 tablet 3 08/26/19 25 Active cholecalciferol VITAMIN D (Vitamin D-3) 50 MCG (2000 UT) capsuleIndicatio ns:Acute midline low back pain without sciatica TAKE ONE CAPSULE EVERY DAY 90 capsule 3 08/26/19 25 Active pantoprazole (ProtoNix) 40 MG EC tabletIndication s:Other chronic pancreatitis (HCC),Microcytic anemia TAKE ONE TABLET EVERY MORNING WITH BREAKFAST 90 tablet 3 08/26/19 25 Active Ascorbic Acid (vitamin C) 500 MG tabletIndication s:Other chronic pancreatitis (HCC) TAKE ONE TABLET EVERY DAY 90 tablet 3 08/26/19 25 Active Multiple Vitamins-Iron (Tab-A-Susan/Iron /Beta Carotene) tabletIndication s:Other chronic pancreatitis (HCC),Microcytic anemia TAKE ONE TABLET [...] 09/13/19 25 Active baclofen (Lioresal) 10 MG tabletIndication s:Pain in both knees, unspecified chronicity TAKE ONE TABLET THREE TIMES DAILY 90 tablet 3 5 2:56 PM EST 02/13/20 25 Active baclofen (Lioresal) 10 MG tabletIndication s:Pain in both knees, unspecified chronicity Take 1 tablet (10 mg) by mouth if needed in the morning, at noon, and at bedtime for muscle spasms for up to 10 days. 30 tablet 11/19/19 25 025 Discontinued Active Problems Problem Noted Date Diagnosed Date Microcytic anemia 06/01/2024 Primary hypertension 05/02/2024 Postinflammatory hyperpigmentation 03/11/2023 Assessment & Plan (03/11/2023 11:47 AM EST): Patient that presented visit with concerns of hyperpigmentation on abdomen will be referred to Dermatology. Hypertriglyceridemia 11/14/2020 Other chronic pancreatitis 11/14/2020 Encounters Date Type Department Care Team Description 02/28/2025 Orders Only [facility] [address] [place] [address] Valentino Landis MD Other chronic pancreatitis (HCC) (Primary Dx) 02/27/2025 Orders Only [facility] External Provider, [facility] 02/12/2025 Refill [facility] [address] [place] [address] Jojo Seymour MD Pain in both knees, unspecified chronicity from Last 3 Months Immunizations Immunization Administration [...] your housing situation today? I have soumya yin 05/02/[address] you li [...] the past 12 months, has t he [employer], gas, oil or water company threatened to [...] of 2 - Risk 2-dose series) 1995 Pneumococcal Vaccine: Pediatrics (0 to 5 Years) and At-Risk Patients (6 to 49) Years (1 of 2 - PCV) 1995 Hepatitis B Vaccines (3 of 3 - 19+ 3-dose series) 08/26/2017 05/18/2017, 02/25/2017 Mammogram 11/29/2022 11/29/2020 COVID-19 Vaccine ( - 2024- season) 2024 04/18/2021, 08/21/2020, 07/24/2020 Influenza Vaccine (#1) 2024 , 12/15/2019, 02/10/2019, Additional history exists Pap Smear 02/05/2025 02/05/2022 Depression Monitoring 02/15/2025 08/15/2024, 025 Alcohol/Substance Use Screening 08/15/2025 08/15/2024 SDOH Screening 08/15/2025 08/15/2024 Tobacco Screening 11/18/2025 11/18/2024 Zoster Vaccines (1 of 2) 2026 Cervical Cancer Screening 02/05/2027 HPV/Cotest 02/05/2027 02/05/2022, 01/20, 02/05/2022 Lipid Panel 02/27/2030 02/27/2025, 07/0 03/2024, 06/27/2024, Additional history exists RSV Patients and [...] Comments XR KNEE 3 VIEWS BILATERAL Routine 02/27/2025 10:07 AM EST LIPASE Routine 02/27/2025 9:55 AM EST LIPID PANEL, STANDARD Routine 02/27/2025 9:55 AM EST HEPATIC FUNCTION PANEL Routine 02/27/2025 9:55 AM EST ZZZ HISTORICAL HPV E6/E7 RFLX MEDINA 16 18/45 Routine 02/05/2022 2:44 PM EST PAP SMEAR Routine 02/05/2022 2:44 PM EST MAMMOGRAM GENERIC Routine 11/29/2020 10: 00 AM EDT from Last 3 Months or Most Recently Relevant to Health Maintenance Results * XR Knee 3 Views Bilateral (02/27/2025 10:07 AM EST) Anatomical Region Laterality Modality Lower Extremities, Knee Bilateral [facility] 02/27/2025 10:0 7 AM EST Narrative 02/27/2025 10:25 AM EST [place] [address] XRay Report Signed Patient: Windy Tai I MR#: [id number] : 1975 Acct:[id number] Age/Sex: 49 / F ADM Date: 02/27/25 Loc: ED Attending Dr: Naomy Oshea [employer]- Ordering Physician: Viviane Lott PA-C Date of Service: 02/27/25 Procedure(s): XR Knee Ash 3V Accession Number(s): [id number] cc: Jojo Seymour MD; Viviane Lott PA-C Reason for Exam: M25.569 - Pain in unspecified knee EXAMINATION: XR KNEE BILATERAL CLINICAL INFORMATION: M25.569 - Pain in unspecified knee COMPARISON: Main 09/12/2024 TECHNIQUE: AP oblique,, lateral views and sunrise views both knees. FINDINGS: Joint space narrowing involving the medial compartment both knees was sclerosis along the reticular surface medial tibial plateaus. No acute fracture or dislocation. No suprapatellar bursa joint effusion. Small exostosis at the quadriceps tendon insertion in the left knee. No lytic or blastic lesions. No soft versus calcifications. XR/XR Knee Ash 3V IMPRESSION: Medial compartment osteoarthrosis/osteoarthritis. Electronically signed by: Chris Canseco MD 02/27/2025 10:22 AM EST Dictated By: Chris Raya MD Signed By: <Electronically signed by Chris Hall MD in OV> 02/27/25 1022 DD/ 1007 TD/TT: 02/27/25 1017 Zinc Plater: Procedure Note Donotuseinterpreter, Image - 02/27/2025 [place] [address] XRay Report Signed Patient: Windy Tai IMR#: [id number] : 1975Acct:[id number] Age/Sex: 49 / FADM Date: 02/27/25 Loc: [facility] Attending Dr: Naomy Oshea [facility]- Ordering Physician: Viviane Lott PA-C Date of Service: 02/27/25 Procedure(s): XR Knee Ash 3V Accession Number(s): [id number] cc: Jojo Seymour MD; Viviane Lott PA-C Reason for Exam: M25.569 - Pain in unspecified knee EXAMINATION: XR KNEE BILATERAL CLINICAL INFORMATION: M25.569 - Pain in unspecified knee COMPARISON: Main 09/12/2024 TECHNIQUE: AP oblique,, lateral views and sunrise views both knees. FINDINGS: Joint space narrowing involving the medial compartment both knees was sclerosis along the reticular surface medial tibial plateaus. No acute fracture or dislocation. No suprapatellar bursa joint effusion. Small exostosis at the quadriceps tendon insertion in the left knee. No lytic or blastic lesions. No soft versus calcifications. XR/XR Knee Ash 3V IMPRESSION: Medial compartment osteoarthrosis/osteoarthritis. Electronically signed by: Chris Canseco MD 02/27/2025 10:22 AM EST Dictated By: Chris Raya MD Signed By: <Electronically signed by Chris Hall MDin OV> 02/27/25 1022 DD/ 1007 TD/TT: 02/27/25 1017 Zinc Plater: [facility] External Provider IMG XR PROCEDURES Final Result * Lipase (02/27/2025 9:55 AM EST) [facility] Lipase 37 8 - 78 U/L [facility] 02/27/2025 9:55 AM EST 02/27/2025 9:55 AM EST Generic External Data Provider LAB BLOOD ORDERAB LES Final Result Performing Organization Address City/State/[facility] Co de Phone Number [facility] [address] [place] [phone] * (ABNORMAL) Hepatic Function Panel (02/27/2025 9:55 AM EST) Pathologist [facility] Bilirubin, Total 0.3 0.0 - 1.0 mg/dL [facility] Bilirubin, Direct <0.1 0.0 - 0.5 mg/dL [facility] Aspartate Amino Transferase 27 5 - 31 U/L [facility] Alanine Aminotransferase 36(H) 0 - 31 U/L [facility] Total Protein 8.9(H) 6.5 - 8.0 g/dL [facility] Albumin Level 4.3 3.5 - 5.0 g/dL [facility] Alkaline Phosphatase 124(H) 39 - 117 U/L [facility] 02/27/2025 9:55 AM EST 02/27/2025 9:55 AM EST Generic External Data Provider LAB BLOOD ORDERAB LES Final Result Performing Organization Address [facility]/ZIP Co de Phone Number [facility] [address] [place] [address] [phone] * (ABNORMAL) Lipid Panel, Standard (02/27/2025 9:55 AM EST) Triglycerides 3,083(H) <150 mg/dL [facility] Comment:Verified by dilution Desirable Triglyceride: less than 150 mg/dLBorderline High Triglyceride 150-199 mg/dLHigh Triglyceride: 200-499 mg/dLVery High Triglyceride: greater than or equal to 5OO mg/dL Cholesterol 616(H) <200 mg/dL [facility] Comment:Desirable Cholestero l: less than 200 mg/dLBorderline High Cholesterol: 200-239 mg/dLHigh Cholesterol: greater than 239 mg/dL LDL Cholesterol Calculated TNP <100 mg/dL [facility] Comment:Unable to calculate the LDL. The formula of Friedwald,Duarte, and Marquis is only valid if the triglycerides areless than 400 mg/dl.Unable to calculate the LDL. The formula of Friedwald,Duarte, and Marquis is only valid if the triglycerides areless than 400 mg/dl. HDL Cholesterol 30(L) >40 mg/dL [facility] Comment:Desirable HDL: great er than 40 mg/dL Note: This HDL assay may give artificially low results in patients with liver disease. 02/27/2025 9:55 AM EST 02/27/2025 9:55 AM EST us Generic External Data Provider LAB BLOOD ORDERAB LES Final Result Performing Organization Address [facility]/ZIP Co de Phone Number [facility] [address] [place] [address] [phone] * (ABNORMAL) HPV E6/E7 RFLX MEDINA 16 18/45 (02/05/2022 2:44 PM EST) HPV 16 RNA DETECTED(A) NOT DETECTED [facility] HPV 18/45 RNA NOT DETECTED NOT DETECTED [facility] Comment: Methodology: Information Technology Coordinator Mediated Amplification Cervical sources are required for HPV testing. If a vaginal source from a patient who has had a total hysterectomy with removal of cervix was submitted, please contact the testing laboratory for alternative testing options. THIS TEST WAS PERFORMED AT: [facility] [address] [place] [address],[place] [address] GUERO NIELSEN MD HPV mRNA E6/E7 rflx Detected(A) Not Detected [facility] Comment: Methodology: Information Technology Coordinator-Mediated Amplification This assay detects E6/E7 viral messenger RNA (mRNA) from 14 high-risk HPV types (16,18,31,33,35,39,45,51,52,56,58,59,66,68). Cervical sources are required for HPV testing. If a vaginal source from a patient who has had a total hysterectomy with removal of cervix was submitted, please contact the testing laboratory for alternative testing options. For additional information, please refer to http://education.MJH/faq/TEC714l3 (This link if provided for information/ educational purposes only.) THIS TEST WAS PERFORMED AT: [facility] [address] [place] [address],[place] [address] GUERO NIELSEN MD 02/05/2022 2:44 PM EST Rusty Rodriguez MD HISTORICAL/NON ORDERABLE LABS Fi nal Result [facility] * Pap Smear (02/05/2022 2:44 PM EST) 02/05/2022 2:44 PM EST 02/06/2022 9:50 AM EST Narrative [facility] - 03/03/2022 12:04 PM EST ----- ------- Name: Windy Tai I Age/Sex: 46/F [facility] 1975 [id number] [id number] Attend Dr: Rusty Rodriguez MD Re02/05/22 Status: DEP REF Location: [facility] Disch: ----- ------- SPEC : [id number] RECD: 02/06/22 STATUS: MALCOLM LEVY NUM: [id number] LOU: 02/05/22-[address] [facility] [address]: Rusty Rodriguez MD ENTERED: 02/06/22-1244 SP TYPE: Pap Smr OTHR DR: Jojo [...] RNA: Not Detected HPV testing performed by [employer], [place], [place]. See reference laboratory portion of the EMR for entire report. Clinical Information LMP: 02/10 Previous PAP test: 2008, WNL Material Received ThinPrep-Cervical Copies To: Jojo Seymour MD [address] [place], [place] [phone] Rusty Rodriguez MD [address] [place], [place] [address] [address] [phone] ----- ------- Signed (signature on file) Aroldo Danielle MD 03/03/22 1204 ----- ------- END OF REPORT [facility] External Provider LAB [facility] Final Result [facility] [address] [place] [phone] * Mammography Report 1 (11/29/2020 10:00 [...] Most Recently Relevant to Health Maintenance Insurance [employer] [facility] Care Teams Customer Retention Specialist Relationship Specialty Start Date End Date Jojo Seymour MD [address] [place] [phone] PCP - General Internal Medicine 12/03/20 Julio NERI 04/25/24
--- OUTSIDE RECORDS SUMMARY | 2025-03-04 18:50 | XMS_ITS | Encounter Summary ---
Author Organization [facility] Address [address] [place] [address] Care Team Providers Care Plate Glass Installer Name Role Phone Jojo Seymour Primary Care Provider + [phone] Encounter Details Date Type Department Care Team (Late st Contact Info) Description 04/03/2024 Lab Requisition [facility] [address] [place] [address] Aga Infante MD [address] [place] [phone] Acute respiratory failure, unspecified whether with hypoxia [...] of this encounter Procedures * Due to [place] state law, this organization might not be [...] in this encounter Results * Due to [place] state law, this organization might not be sharing negative HIV tests. * (ABNORMAL) CBC Auto Differential (04/03/2024 10:00 AM EST) WBC 11.1(H) 4.8 - 10.8 10*3/uL 04/03/2024 10:20 AM EST [facility] RBC 3.47(L) 4.20 - 5.40 10*6/uL 04/03/2024 10:20 AM EST [facility] Hemoglobin 8.7(L) 11.7 - 15.5 g/dL 04/03/2024 10:20 AM [facility] Hematocrit 27.1(L) 35.7 - 45.8 % 04/03/2024 10:20 AM EST [facility] MCV 78.1(L) 81.0 - 99.0 fL 04/03/2024 10:20 AM [facility] MCH 25.1(L) 26.0 - 34.0 pg 04/03/2024 10:20 AM EST [facility] MCHC 32.1 31.0 - 36.0 g/dL 04/03/2024 10:20 AM EST [facility] RDW 14.6 12.0 - 15.0 % 04/03/2024 10:20 AM EST [facility] RDW Standard Deviation 41.7 36.4 - 46.3 fL 04/03/2024 10:20 AM EST [facility] Platelets 306 140 - 440 10*3/uL 04/03/2024 10:20 AM EST [facility] MPV 9.2(L) 9.4 - 12.3 fL 04/03/2024 10:20 AM [facility] Neutrophil % 65.4 50.0 - 75.0 % 04/03/2024 10:20 AM EST [facility] Immature Grans % 0.5 0.0 - 0.9 % 04/03/2024 10:20 AM EST [facility] Lymphocyte % 27.1 20.0 - 44.0 % 04/03/2024 10:20 AM EST [facility] Monocyte % 5.2 0.0 - 14.0 % 04/03/2024 10:20 AM EST [facility] Eosinophil % 1.4 0.0 - 5.0 % 04/03/2024 10:20 AM EST [facility] Basophil % 0.4 0.0 - 2.0 % 04/03/2024 10:20 AM EST [facility] Neutrophil # 7.24 1.80 - 7.70 10*3/uL 04/03/2024 10:20 AM EST [facility] Immature Grans # 0.05(H) 0.00 - 0.03 10*3/uL 04/03/2024 10:20 AM EST [facility] Lymphocyte # 3.00 1.00 - 4.75 10*3/uL 04/03/2024 10:20 AM EST [facility] Monocyte # 0.60 0.00 - 6.00 10*3/uL 04/03/2024 10:20 AM EST [facility] Eosinophil # 0.20 0.00 - 0.80 10*3/uL 04/03/2024 10:20 AM [facility] Basophil # <0.03 0.00 - 0.20 10*3/uL 04/03/2024 10:20 AM EST [facility] nRBC % 0.0 0 - 0 /100 WBCs 04/03/2024 10:20 AM [facility] nRBC # <0.01 0.00 - 0.13 10*3/uL 04/03/2024 10:20 AM [facility] Blood Structure of peripheral vein / Unknown Venipuncture / Unknown 04/03/2024 10:00 AM EST 04/03/2024 10:01 AM EST us Aga Infante MD LAB BLOOD ORDERABLES Final Res ult [facility] [address] [place] [place] [address], [place] [phone] * (ABNORMAL) Comprehensive Metabolic Panel (04/03/2024 10:00 AM EST) NA 135(L) 136 - 145 mmol/L 04/03/2024 11:15 AM EST [facility] K 4.4 3.5 - 5.1 mmol/L 04/03/2024 11:15 AM EST [facility] Cl 102 98 - 109 mmol/L 04/03/2024 11:15 AM EST [facility] CO2 23 22 - 32 mmol/L 04/03/2024 11:15 AM EST [facility] Anion Gap 14 >=0 04/03/2024 11:15 AM EST [facility] Glucose 114(H) 60 - 99 mg/dL 04/03/2024 11:15 AM EST [facility] Creatinine 0.51 0.50 - 1.12 mg/dL 04/03/2024 11:15 AM EST [facility] Calcium 9.2 8.4 - 10.4 mg/dL 04/03/2024 11:15 AM EST [facility] Total Protein 7.6 6.6 - 8.7 g/dL 04/03/2024 11:15 AM EST [facility] Albumin 3.2(L) 3.5 - 5.0 g/dL 04/03/2024 11:15 AM EST [facility] Bilirubin, Total 0.3 0.2 - 1.2 mg/dL 04/03/2024 11:15 AM EST [facility] Alkaline Phosphatase 219(H) 40 - 129 U/L 04/03/2024 11:15 AM EST [facility] AST 24 0 - 33 U/L 04/03/2024 11:15 AM EST [facility] ALT 29 <=33 U/L 04/03/2024 11:15 AM EST [facility] BUN 20 6 - 20 mg/dL 04/03/2024 11:15 AM EST [facility] eGFR >90 >=60 mL/min/1. 73m2 04/03/2024 11:15 AM EST [facility] Comment:The estimated glomer ular filtration [...] - 4.2 g/dL 04/03/2024 11:15 AM EST [facility] A/G Ratio 0.7(L) 1.5 - 3.0 04/03/2024 11:15 AM EST [facility] Blood Structure of peripheral vein / Unknown Venipuncture / Unknown 04/03/2024 10:00 AM EST 04/03/2024 10:01 AM EST Aga Infante MD LAB BLOOD ORDERABLES Final Res ult Performing Organization Address City/State/[facility] Co de Phone Number [facility] [address] [facility] [address] [place] [address], documented in this encounter Visit Diagnoses Diagnosis Acute respiratory failure, unspecified whether with hypoxia or hypercapnia No diagnosis documented in this encounter Care Teams Plate Glass Installer Relationship Specialty Start Date End Date Jojo Seymour [address] [place] [address] PCP - General Internal Medicine 03/03/23 documented as of this encounter
--- OUTSIDE RECORDS SUMMARY | 2025-03-04 18:50 | XMS_ITS | Encounter Summary ---
Author Organization [facility] Address [address] [place] [address] Care Team Providers Care Regional Guide Name Role Phone Jojo Seymour Primary Care Provider + [phone] Encounter Details Date Type Department Care Team (Late st Contact Info) Description 04/07/2024 Lab Requisition [facility] [address] [place] [address] Natalia Oropeza MD [address] [place] [address] Acute respiratory failure, unspecified whether with hypoxia [...] - 10.8 10*3/uL 04/07/2024 10:22 AM EST [facility] RBC 3.74(L) 4.20 - 5.40 10*6/uL 04/07/2024 10:22 AM [facility] Hemoglobin 9.4(L) 11.7 - 15.5 g/dL 04/07/2024 10:22 AM [facility] Hematocrit 29.1(L) 35.7 - 45.8 % 04/07/2024 10:22 AM [facility] MCV 77.8(L) 81.0 - 99.0 fL 04/07/2024 10:22 AM [facility] MCH 25.1(L) 26.0 - 34.0 pg 04/07/2024 10:22 AM [facility] MCHC 32.3 31.0 - 36.0 g/dL 04/07/2024 10:22 AM [facility] RDW 14.6 12.0 - 15.0 % 04/07/2024 10:22 AM [facility] RDW Standard Deviation 41.0 36.4 - 46.3 fL 04/07/2024 10:22 AM [facility] Platelets 310 140 - 440 10*3/uL 04/07/2024 10:22 AM [facility] MPV 9.4 9.4 - 12.3 fL 04/07/2024 10:22 AM [facility] Neutrophil % 58.6 50.0 - 75.0 % 04/07/2024 10:22 AM [facility] Immature Grans % 0.3 0.0 - 0.9 % 04/07/2024 10:22 AM [facility] Lymphocyte % 34.3 20.0 - 44.0 % 04/07/2024 10:22 AM EST [facility] Monocyte % 4.8 0.0 - 14.0 % 04/07/2024 10:22 AM EST [facility] Eosinophil % 1.7 0.0 - 5.0 % 04/07/2024 10:22 AM EST [facility] Basophil % 0.3 0.0 - 2.0 % 04/07/2024 10:22 AM EST [facility] Neutrophil # 5.14 1.80 - 7.70 10*3/uL 04/07/2024 10:22 AM EST [facility] Immature Grans # 0.03 0.00 - 0.03 10*3/uL 04/07/2024 10:22 AM EST [facility] Lymphocyte # 3.00 1.00 - 4.75 10*3/uL 04/07/2024 10:22 AM EST [facility] Monocyte # 0.40 0.00 - 6.00 10*3/uL 04/07/2024 10:22 AM EST [facility] Eosinophil # 0.20 0.00 - 0.80 10*3/uL 04/07/2024 10:22 AM EST [facility] Basophil # <0.03 0.00 - 0.20 10*3/uL 04/07/2024 10:22 AM EST [facility] nRBC % 0.0 0 - 0 /100 WBCs 04/07/2024 10:22 AM EST [facility] nRBC # <0.01 0.00 - 0.13 10*3/uL 04/07/2024 10:22 AM EST [facility] Blood Structure of peripheral vein / Unknown Venipuncture / Unknown 04/07/2024 10:04 AM EST 04/07/2024 10:04 AM EST us Natalia Oropeza MD LAB BLOOD ORDERABLES Final Res ult Performing Organization Address City/State/[facility] Co de Phone Number [facility] [address] [place] [address] [address] [place] [address], [place] [phone] * (ABNORMAL) Comprehensive Metabolic Panel (04/07/2024 10:04 AM EST) NA 134(L) 136 - 145 mmol/L 04/07/2024 11:00 AM EST [facility] K 4.1 3.5 - 5.1 mmol/L 04/07/2024 11:00 AM EST [facility] Cl 97(L) 98 - 109 mmol/L 04/07/2024 11:00 AM EST [facility] CO2 23 22 - 32 mmol/L 04/07/2024 11:00 AM [facility] Anion Gap 18 >=0 04/07/2024 11:00 AM [facility] Glucose 92 60 - 99 mg/dL 04/07/2024 11:00 AM [facility] Creatinine 0.60 0.50 - 1.12 mg/dL 04/07/2024 11:00 AM EST [facility] Calcium 9.7 8.4 - 10.4 mg/dL 04/07/2024 11:00 AM [facility] Total Protein 8.3 6.6 - 8.7 g/dL 04/07/2024 11:00 AM [facility] Albumin 3.4(L) 3.5 - 5.0 g/dL 04/07/2024 11:00 AM [facility] Bilirubin, Total 0.3 0.2 - 1.2 mg/dL 04/07/2024 11:00 AM EST [facility] Alkaline Phosphatase 204(H) 40 - 129 U/L 04/07/2024 11:00 AM [facility] AST 32 0 - 33 U/L 04/07/2024 11:00 AM [facility] ALT 36(H) <=33 U/L 04/07/2024 11:00 AM [facility] BUN 19 6 - 20 mg/dL 04/07/2024 11:00 AM EST [facility] eGFR >90 >=60 mL/min/1. 73m2 04/07/2024 11:00 AM EST [facility] [...] - 4.2 g/dL 04/07/2024 11:00 AM EST [facility] A/G Ratio 0.7(L) 1.5 - 3.0 04/07/2024 11:00 AM EST [facility] Blood Structure of peripheral vein / Unknown Venipuncture / Unknown 04/07/2024 10:04 AM EST 04/07/2024 10:04 AM EST us Natalia Oropeza MD LAB BLOOD ORDERABLES Final Res ult [facility] [address] [facility] [address] [place] [address], documented in this encounter Visit Diagnoses Diagnosis Acute respiratory failure, unspecified whether with hypoxia or hypercapnia No diagnosis documented in this encounter Care Teams Regional Guide Relationship Specialty Start Date End Date Jojo Seymour [address] [place] [address] PCP - General Internal Medicine 03/03/23 documented as of this encounter
--- OUTSIDE RECORDS SUMMARY | 2025-03-04 18:50 | XMS_ITS | Encounter Summary ---
Author Organization [employer] Address [address] [place] [phone] Care Team Providers Care Laser Beam Trim Operator Name Role Phone Jojo Seymour MD Primary Care Provider [phone] Encounter Details Date Type Department Care Team (Late st Contact Info) Description 07/07/2022 Abstract [facility] [address] [place] [address] Jojo Seymour MD [address] [place], [place] [phone] Social History Tobacco Use Types Packs/Day Years [...] on filedocumented in this encounter Care Teams Laser Beam Trim Operator Relationship Specialty Start Date End Date Jojo Seymour MD [address] [place], [place] [phone] PCP - General Internal Medicine 12/03/20 Julio [facility] 04/25/24 documented as of this encounter
--- OUTSIDE RECORDS SUMMARY | 2025-03-04 18:50 | XMS_ITS | Encounter Summary ---
Author Organization [facility] Address [address] [place] [address] Care Team Providers Care Sales Utility Representative Name Role Phone Jojo Seymour Primary Care Provider + [phone] Encounter Details Date Type Department Care Team (Late st Contact Info) Description 04/10/2024 Lab Requisition [facility] [address] [place] [address] Mo Starkey PA [address] [place] [address] Acute and chronic respiratory failure with hypoxia; [...] - 145 mmol/L 04/10/2024 11:15 AM EST [facility] K 4.1 3.5 - 5.1 mmol/L 04/10/2024 11:15 AM EST [facility] Cl 98 98 - 109 mmol/L 04/10/2024 11:15 AM EST [facility] CO2 27 22 - 32 mmol/L 04/10/2024 11:15 AM EST [facility] Anion Gap 13 >=0 04/10/2024 11:15 AM EST [facility] Glucose 92 60 - 99 mg/dL 04/10/2024 11:15 AM [facility] Creatinine 0.57 0.50 - 1.12 mg/dL 04/10/2024 11:15 AM EST [facility] Calcium 9.3 8.4 - 10.4 mg/dL 04/10/2024 11:15 AM [facility] Total Protein 7.9 6.6 - 8.7 g/dL 04/10/2024 11:15 AM [facility] Albumin 3.3(L) 3.5 - 5.0 g/dL 04/10/2024 11:15 AM [facility] Bilirubin, Total 0.2 0.2 - 1.2 mg/dL 04/10/2024 11:15 AM EST [facility] Alkaline Phosphatase 198(H) 40 - 129 U/L 04/10/2024 11:15 AM EST [facility] AST 20 0 - 33 U/L 04/10/2024 11:15 AM [facility] ALT 24 <=33 U/L 04/10/2024 11:15 AM [facility] BUN 20 6 - 20 mg/dL 04/10/2024 11:15 AM [facility] eGFR >90 >=60 mL/min/1. 73m2 04/10/2024 11:15 AM EST [facility] Comment:The estimated glomer ular [...] - 4.2 g/dL 04/10/2024 11:15 AM EST [facility] A/G Ratio 0.7(L) 1.5 - 3.0 04/10/2024 11:15 AM EST [facility] Blood Structure of peripheral vein / Unknown Venipuncture / Unknown 04/10/2024 10:25 AM EST 04/10/2024 10:25 AM EST Mo NICOLAS LAB BLOOD ORDERABLES Final R esult [facility] [address] [facility] [address] [place] [address], * (ABNORMAL) CBC Auto Differential (04/10/2024 10:25 AM EST) WBC 12.7(H) 4.8 - 10.8 10*3/uL 04/10/2024 10:54 AM EST [facility] RBC 3.80(L) 4.20 - 5.40 10*6/uL 04/10/2024 10:54 AM EST [facility] Hemoglobin 9.5(L) 11.7 - 15.5 g/dL 04/10/2024 10:54 AM EST [facility] Hematocrit 29.6(L) 35.7 - 45.8 % 04/10/2024 10:54 AM EST [facility] MCV 77.9(L) 81.0 - 99.0 fL 04/10/2024 10:54 AM EST [facility] MCH 25.0(L) 26.0 - 34.0 pg 04/10/2024 10:54 AM [facility] MCHC 32.1 31.0 - 36.0 g/dL 04/10/2024 10:54 AM [facility] RDW 14.7 12.0 - 15.0 % 04/10/2024 10:54 AM [facility] RDW Standard Deviation 41.7 36.4 - 46.3 fL 04/10/2024 10:54 AM [facility] Platelets 299 140 - 440 10*3/uL 04/10/2024 10:54 AM [facility] MPV 9.3(L) 9.4 - 12.3 fL 04/10/2024 10:54 AM [facility] Neutrophil % 72.6 50.0 - 75.0 % 04/10/2024 10:54 AM [facility] Immature Grans % 0.5 0.0 - 0.9 % 04/10/2024 10:54 AM [facility] Lymphocyte % 22.1 20.0 - 44.0 % 04/10/2024 10:54 AM [facility] Monocyte % 3.7 0.0 - 14.0 % 04/10/2024 10:54 AM [facility] Eosinophil % 0.9 0.0 - 5.0 % 04/10/2024 10:54 AM EST [facility] Basophil % 0.2 0.0 - 2.0 % 04/10/2024 10:54 AM [facility] Neutrophil # 9.25(H) 1.80 - 7.70 10*3/uL 04/10/2024 10:54 AM [facility] Immature Grans # 0.06(H) 0.00 - 0.03 10*3/uL 04/10/2024 10:54 AM EST [facility] Lymphocyte # 2.80 1.00 - 4.75 10*3/uL 04/10/2024 10:54 AM EST [facility] Monocyte # 0.50 0.00 - 6.00 10*3/uL 04/10/2024 10:54 AM EST [facility] Eosinophil # 0.10 0.00 - 0.80 10*3/uL 04/10/2024 10:54 AM EST [facility] Basophil # <0.03 0.00 - 0.20 10*3/uL 04/10/2024 10:54 AM EST [facility] nRBC % 0.0 0 - 0 /100 WBCs 04/10/2024 10:54 AM EST [facility] nRBC # <0.01 0.00 - 0.13 10*3/uL 04/10/2024 10:54 AM EST [facility] Blood Structure of peripheral vein / Unknown Venipuncture / Unknown 04/10/2024 10:25 AM EST 04/10/2024 10:25 AM EST us Mo NICOLAS LAB BLOOD ORDERABLES Final R esult Performing Organization Address City/State/[facility] Co de Phone Number [facility] [address] [facility] [address] [place] [address], documented in this encounter Visit Diagnoses Diagnosis Acute and chronic respiratory failure with hypoxia No diagnosis documented in this encounter Care Teams Sales Utility Representative Relationship Specialty Start Date End Date Jojo Seymour [address] [place] [address] PCP - General Internal Medicine 03/03/23 documented as of this encounter
--- OUTSIDE RECORDS SUMMARY | 2025-03-04 18:50 | XMS_ITS | Encounter Summary ---
Author Organization [facility] Address [address] [place] [address] Care Team Providers Care Back Maker Name Role Phone Jojo Seymour Primary Care Provider + [phone] Encounter Details Date Type Department Care Team (Late st Contact Info) Description 03/27/2024 Lab Requisition [facility] [address] [place] [address] Mo Starkey PA [address] [place] [address] Acute respiratory failure, unspecified whether with hypoxia [...] 4.8 - 10.8 10*3/uL 03/27/2024 10:21 AM [facility] RBC 3.60(L) 4.20 - 5.40 10*6/uL 03/27/2024 10:21 AM [facility] Hemoglobin 9.3(L) 11.7 - 15.5 g/dL 03/27/2024 10:21 AM [facility] Hematocrit 28.9(L) 35.7 - 45.8 % 03/27/2024 10:21 AM [facility] MCV 80.3(L) 81.0 - 99.0 fL 03/27/2024 10:21 AM [facility] MCH 25.8(L) 26.0 - 34.0 pg 03/27/2024 10:21 AM [facility] MCHC 32.2 31.0 - 36.0 g/dL 03/27/2024 10:21 AM [facility] RDW 14.7 12.0 - 15.0 % 03/27/2024 10:21 AM [facility] RDW Standard Deviation 43.6 36.4 - 46.3 fL 03/27/2024 10:21 AM [facility] Platelets 375 140 - 440 10*3/uL 03/27/2024 10:21 AM [facility] MPV 9.2(L) 9.4 - 12.3 fL 03/27/2024 10:21 AM [facility] Neutrophil % 67.4 50.0 - 75.0 % 03/27/2024 10:21 AM [facility] Immature Grans % 0.3 0.0 - 0.9 % 03/27/2024 10:21 AM EST [facility] Lymphocyte % 25.3 20.0 - 44.0 % 03/27/2024 10:21 AM EST [facility] Monocyte % 4.7 0.0 - 14.0 % 03/27/2024 10:21 AM [facility] Eosinophil % 2.0 0.0 - 5.0 % 03/27/2024 10:21 AM EST [facility] Basophil % 0.3 0.0 - 2.0 % 03/27/2024 10:21 AM EST [facility] Neutrophil # 8.22(H) 1.80 - 7.70 10*3/uL 03/27/2024 10:21 AM EST [facility] Immature Grans # 0.04(H) 0.00 - 0.03 10*3/uL 03/27/2024 10:21 AM [facility] Lymphocyte # 3.10 1.00 - 4.75 10*3/uL 03/27/2024 10:21 AM EST [facility] Monocyte # 0.60 0.00 - 6.00 10*3/uL 03/27/2024 10:21 AM EST [facility] Eosinophil # 0.20 0.00 - 0.80 10*3/uL 03/27/2024 10:21 AM [facility] Basophil # <0.03 0.00 - 0.20 10*3/uL 03/27/2024 10:21 AM EST [facility] nRBC % 0.0 0 - 0 /100 WBCs 03/27/2024 10:21 AM [facility] nRBC # <0.01 0.00 - 0.13 10*3/uL 03/27/2024 10:21 AM [facility] Blood Structure of peripheral vein / Unknown Venipuncture / Unknown 03/27/2024 10:03 AM EST 03/27/2024 10:03 AM EST Mo NICOLSA LAB BLOOD ORDERABLES Final R esult [facility] [address] [place] [address], [place] [phone] * (ABNORMAL) Comprehensive Metabolic Panel (03/27/2024 10:03 AM EST) NA 134(L) 136 - 145 mmol/L 03/27/2024 10:44 AM EST [facility] K 4.5 3.5 - 5.1 mmol/L 03/27/2024 10:44 AM EST [facility] Cl 97(L) 98 - 109 mmol/L 03/27/2024 10:44 AM EST [facility] CO2 27 22 - 32 mmol/L 03/27/2024 10:44 AM EST [facility] Anion Gap 15 >=0 03/27/2024 10:44 AM EST [facility] Glucose 123(H) 60 - 99 mg/dL 03/27/2024 10:44 AM EST [facility] Creatinine 0.50 0.50 - 1.12 mg/dL 03/27/2024 10:44 AM EST [facility] Calcium 9.6 8.4 - 10.4 mg/dL 03/27/2024 10:44 AM EST [facility] Total Protein 8.1 6.6 - 8.7 g/dL 03/27/2024 10:44 AM EST [facility] Albumin 3.3(L) 3.5 - 5.0 g/dL 03/27/2024 10:44 AM EST [facility] Bilirubin, Total 0.3 0.2 - 1.2 mg/dL 03/27/2024 10:44 AM EST [facility] Alkaline Phosphatase 246(H) 40 - 129 U/L 03/27/2024 10:44 AM EST [facility] AST 23 0 - 33 U/L 03/27/2024 10:44 AM EST [facility] ALT 25 <=33 U/L 03/27/2024 10:44 AM EST [facility] BUN 24(H) 6 - 20 mg/dL 03/27/2024 10:44 AM EST [facility] eGFR >90 >=60 mL/min/1. 73m2 03/27/2024 10:44 AM EST [facility] Comment:The estimated glomer ular filtration [...] - 4.2 g/dL 03/27/2024 10:44 AM EST [facility] A/G Ratio 0.7(L) 1.5 - 3.0 03/27/2024 10:44 AM EST [facility] Blood Structure of peripheral vein / Unknown Venipuncture / Unknown 03/27/2024 10:03 AM EST 03/27/2024 10:03 AM EST Mo NICOLAS LAB BLOOD ORDERABLES Final R esult [facility] [address] [facility] [address] [place] [address], documented in this encounter Visit Diagnoses Diagnosis Acute respiratory failure, unspecified whether with hypoxia or hypercapnia No diagnosis documented in this encounter Care Teams Back Maker Relationship Specialty Start Date End Date Jojo Seymour [address] [place] [phone] PCP - General Internal Medicine 03/03/23 documented as of this encounter
--- OUTSIDE RECORDS SUMMARY | 2025-03-04 18:50 | XMS_ITS | Encounter Summary ---
Author Organization [facility] Address [address] [place] [address] Care Team Providers Care Linoleum Mechanic Name Role Phone Jojo Seymour Primary Care Provider + [phone] Encounter Details Date Type Department Care Team (Late st Contact Info) Description 03/21/2024 Lab Requisition [facility] Lab [address] [place] [address] Mo Starkey PA [address] [place] [address] Acute and chronic respiratory failure with hypoxia; [...] of this encounter Procedures * Due to [place] state law, this organization might not be [...] in this encounter Results * Due to [place] state law, this organization might not be sharing negative HIV tests. * (ABNORMAL) CBC Auto Differential (03/21/2024 9:33 AM EST) WBC 11.3(H) 4.8 - 10.8 10*3/uL 03/21/2024 9:42 AM EST [facility] RBC 3.63(L) 4.20 - 5.40 10*6/uL 03/21/2024 9:42 AM EST [facility] Hemoglobin 9.4(L) 11.7 - 15.5 g/dL 03/21/2024 9:42 AM EST [facility] Hematocrit 29.0(L) 35.7 - 45.8 % 03/21/2024 9:42 AM EST [facility] MCV 79.9(L) 81.0 - 99.0 fL 03/21/2024 9:42 AM EST [facility] MCH 25.9(L) 26.0 - 34.0 pg 03/21/2024 9:42 AM EST [facility] MCHC 32.4 31.0 - 36.0 g/dL 03/21/2024 9:42 AM EST [facility] RDW 14.7 12.0 - 15.0 % 03/21/2024 9:42 AM EST [facility] RDW Standard Deviation 43.5 36.4 - 46.3 fL 03/21/2024 9:42 AM EST [facility] Platelets 376 140 - 440 10*3/uL 03/21/2024 9:42 AM EST [facility] MPV 9.2(L) 9.4 - 12.3 fL 03/21/2024 9:42 AM EST [facility] Neutrophil % 65.8 50.0 - 75.0 % 03/21/2024 9:42 AM EST [facility] Immature Grans % 0.4 0.0 - 0.9 % 03/21/2024 9:42 AM EST [facility] Lymphocyte % 26.7 20.0 - 44.0 % 03/21/2024 9:42 AM EST [facility] Monocyte % 5.6 0.0 - 14.0 % 03/21/2024 9:42 AM EST [facility] Eosinophil % 1.2 0.0 - 5.0 % 03/21/2024 9:42 AM EST [facility] Basophil % 0.3 0.0 - 2.0 % 03/21/2024 9:42 AM EST [facility] Neutrophil # 7.41 1.80 - 7.70 10*3/uL 03/21/2024 9:42 AM EST [facility] Immature Grans # 0.04(H) 0.00 - 0.03 10*3/uL 03/21/2024 9:42 AM EST [facility] Lymphocyte # 3.00 1.00 - 4.75 10*3/uL 03/21/2024 9:42 AM EST [facility] Monocyte # 0.60 0.00 - 6.00 10*3/uL 03/21/2024 9:42 AM EST [facility] Eosinophil # 0.10 0.00 - 0.80 10*3/uL 03/21/2024 9:42 AM EST [facility] Basophil # <0.03 0.00 - 0.20 10*3/uL 03/21/2024 9:42 AM EST [facility] nRBC % 0.0 0 - 0 /100 WBCs 03/21/2024 9:42 AM EST [facility] nRBC # <0.01 0.00 - 0.13 10*3/uL 03/21/2024 9:42 AM EST [facility] Blood Structure of peripheral vein / Unknown Venipuncture / Unknown 03/21/2024 9:33 AM EST 03/21/2024 9:34 AM EST Mo NICOLAS LAB BLOOD ORDERABLES Final R esult Performing Organization Address [facility]/ZIP Co de Phone Number [facility] [address] [address], [place] [phone] * Hemoglobin A1c (03/21/2024 9:33 AM EST) Pathologist [facility] Hemoglobin A1c 4.7 4.0 - 5.7 % 03/21/2024 9:56 AM EST [facility] Estimated Average Glucose 88 mg/dL 03/21/2024 9:56 AM EST [facility] Blood Structure of peripheral vein / Unknown Venipuncture / Unknown 03/21/2024 9:33 AM EST 03/21/2024 9:34 AM EST Mo NICOLAS LAB BLOOD ORDERABLES Final R esult Performing Organization Address [facility] Co de Phone Number [facility] [address] [address], [place] [phone] * (ABNORMAL) Comprehensive Metabolic Panel (03/21/2024 9:33 AM EST) Pathologist [facility] NA 135(L) 136 - 145 mmol/L 03/21/2024 9:56 AM EST [facility] K 3.9 3.5 - 5.1 mmol/L 03/21/2024 9:56 AM EST [facility] Cl 95(L) 98 - 109 mmol/L 03/21/2024 9:56 AM EST [facility] CO2 27 22 - 32 mmol/L 03/21/2024 9:56 AM EST [facility] Anion Gap 17 >=0 03/21/2024 9:56 AM EST [facility] Glucose 103(H) 60 - 99 mg/dL 03/21/2024 9:56 AM EST [facility] Creatinine 0.58 0.50 - 1.12 mg/dL 03/21/2024 9:56 AM EST [facility] Calcium 9.7 8.4 - 10.4 mg/dL 03/21/2024 9:56 AM [facility] Total Protein 8.5 6.6 - 8.7 g/dL 03/21/2024 9:56 AM [facility] Albumin 3.3(L) 3.5 - 5.0 g/dL 03/21/2024 9:56 AM [facility] Bilirubin, Total 0.3 0.2 - 1.2 mg/dL 03/21/2024 9:56 AM [facility] Alkaline Phosphatase 306(H) 40 - 129 U/L 03/21/2024 9:56 AM [facility] AST 41(H) 0 - 33 U/L 03/21/2024 9:56 AM [facility] ALT 46(H) <=33 U/L 03/21/2024 9:56 AM [facility] BUN 31(H) 6 - 20 mg/dL 03/21/2024 9:56 AM [facility] eGFR >90 >=60 mL/min/1. 73m2 03/21/2024 9:56 AM [facility] Comment:The estimated glomer ular filtration [...] 2.1 - 4.2 g/dL 03/21/2024 9:56 AM [facility] A/G Ratio 0.6(L) 1.5 - 3.0 03/21/2024 9:56 AM [facility] Blood Structure of peripheral vein / Unknown Venipuncture / Unknown 03/21/2024 9:33 AM EST 03/21/2024 9:34 AM EST us Mo NICOLAS LAB BLOOD ORDERABLES Final R esult [facility] [address] [facility] [address] [place] [address], [place] [phone] documented in this encounter Visit Diagnoses Diagnosis Acute and chronic respiratory failure with hypoxia No diagnosis documented in this encounter Care Teams Linoleum Mechanic Relationship Specialty Start Date End Date Jojo Seymour [address] [place] [address] PCP - General Internal Medicine 03/03/23 documented as of this encounter
--- OUTSIDE RECORDS SUMMARY | 2025-03-04 18:50 | XMS_ITS | Encounter Summary ---
Author Organization [employer] Address [address] [facility] 7 [place] [address] Care Team Providers Care Finance Business Partner Name Role Phone Jojo Seymour MD Primary Care Provider [phone] Encounter Details Date Type Department Care Team (Late st Contact Info) Description 02/27/2025 Orders Only [facility] External Provider, [facility] Social History Tobacco Use Types Packs/Day Years [...] EST LIPASE Routine 02/27/2025 9:55 AM EST HEPATIC FUNCTION PANEL Routine 02/27/2025 9:55 AM EST LIPID PANEL, STANDARD Routine 02/27/2025 9:55 AM EST documented in this encounter Results * XR Knee 3 Views Bilateral (02/27/2025 10:07 AM EST) Anatomical Region Laterality Modality Lower Extremities, Knee Bilateral Radiogra phic Imaging 02/27/2025 10:0 7 AM EST Narrative 02/27/2025 10:25 AM EST [place] [address] XRay Report Signed Patient: Windy Tai I MR#: [id number] : 1975 Acct:[id number] Age/Sex: 49 / F ADM Date: 02/27/25 Loc: ED Attending Dr: Naomy Oshea MARKETING CONTENT COORDINATOR- Ordering Physician: Viviane Lott PA-C Date of Service: 02/27/25 Procedure(s): XR Knee Ash 3V Accession Number(s): [id number] cc: Jojo Seymour MD; Viviane Lott PA-C [...] 02/27/25 1022 DD/ 1007 TD/TT: 02/27/25 1017 Cemetery Workers Supervisor: Procedure Note Donotuseinterpreter, Image - 02/27/2025 [place] [address] XRay Report Signed Patient: Windy Tai IMR#: [id number] : 1975Acct:[id number] Age/Sex: 49 / FADM Date: 02/27/25 Loc: ED Attending Dr: Naomy Oshea MARKETING CONTENT COORDINATOR- Ordering Physician: Viviane Lott PA-C Date of Service: 02/27/25 Procedure(s): XR Knee Ash 3V Accession Number(s): [id number] cc: Jojo Seymour MD; Viviane Lott PA-C [...] Chris Canseco MD 02/27/2025 10:22 AM EST RP Dictated By: Chris Raya MD Signed By: <Electronically signed by Chris Hall MDin OV> 02/27/25 1022 DD/ 1007 TD/TT: 02/27/25 1017 Cemetery Workers Supervisor: [facility] External Provider IMG XR PROCEDURES Final Result * Lipase (02/27/2025 9:55 AM EST) Pathologist [facility] Lipase 37 8 - 78 U/L [facility] 02/27/2025 9:55 AM EST 02/27/2025 9:55 AM EST Generic External Data Provider LAB BLOOD ORDERAB LES Final Result [facility] [address] [place] [address] [phone] * (ABNORMAL) Lipid Panel, Standard (02/27/2025 9:55 AM EST) Triglycerides 3,083(H) <150 mg/dL [facility] Comment:Verified by dilution Desirable Triglyceride: less than 150 mg/dLBorderline High Triglyceride 150-199 mg/dLHigh Triglyceride: 200-499 mg/dLVery High Triglyceride: greater than or equal to 5OO mg/dL Cholesterol 616(H) <200 mg/dL [facility] Comment:Desirable Cholestero l: less than 200 mg/dLBorderline High Cholesterol: 200-239 mg/dLHigh Cholesterol: greater than 239 mg/dL LDL Cholesterol Calculated TNP <100 mg/dL [facility] Comment:Unable to calculate the LDL. The formula of Friedwald,Duarte, and Marquis is only valid if the triglycerides areless than 400 mg/dl.Unable to calculate the LDL. The formula of Friedwald,Duarte, and Marquis is only valid if the triglycerides areless than 400 mg/dl. HDL Cholesterol 30(L) >40 mg/dL [facility] Comment:Desirable HDL: great er than 40 mg/dL Note: This HDL assay may give artificially low results in patients with liver disease. 02/27/2025 9:55 AM EST 02/27/2025 9:55 AM EST Generic External Data Provider LAB BLOOD ORDERAB LES Final Result Performing Organization Address [facility] Co de Phone Number [facility] [address] [place] [phone] * (ABNORMAL) Hepatic Function Panel (02/27/2025 9:55 AM EST) Bilirubin, Total 0.3 0.0 - 1.0 mg/dL [facility] Bilirubin, Direct <0.1 0.0 - 0.5 mg/dL [facility] Aspartate Amino Transferase 27 5 - 31 U/L [facility] Alanine Aminotransferase 36(H) 0 - 31 U/L [facility] Total Protein 8.9(H) 6.5 - 8.0 g/dL [facility] Albumin Level 4.3 3.5 - 5.0 g/dL [facility] Alkaline Phosphatase 124(H) 39 - 117 U/L [facility] 02/27/2025 9:55 AM EST 02/27/2025 9:55 AM EST Generic External Data Provider LAB BLOOD ORDERAB LES Final Result Performing Organization Address [facility] Co de Phone Number [facility] [address] [place] [phone] documented in this encounter Visit Diagnoses Not on filedocumented in this encounter Additional Health Concerns Assessment Noted Time PHQ-9 Depression Total Score: 9 08/16/19 25 3:05 PM EDT documented as of this encounter Care Teams Finance Business Partner Relationship Specialty Start Date End Date Jojo Seymour MD [address] [place] [address] PCP - General Internal Medicine 12/03/20 Julio NERI 04/25/24 documented as of this encounter
--- OUTSIDE RECORDS SUMMARY | 2025-03-04 18:50 | XMS_ITS | Encounter Summary ---
Author Organization [facility] Address [address] [place] [address] Care Team Providers Care Mail Handlers Supervisor Name Role Phone Jojo Seymour Primary Care Provider + [phone] Encounter Details Date Type Department Care Team (Late st Contact Info) Description 04/11/2024 Lab Requisition [facility] Lab [address] [place] [address] Juan M Conroy MD [address] [place] [address] Acute respiratory failure, unspecified whether with hypoxia [...] this encounter Procedures * Due to [place] state law, this organization might not be [...] this encounter Results * Due to [place] state law, this organization might not be sharing negative HIV tests. * (ABNORMAL) Microscopic Urinalysis Only (04/11/2024 9:30 AM EST) RBC, Urine None Seen None Seen, 0-2 /HPF 04/11/2024 11:08 AM EST [facility] WBC, Urine 0-2 None Seen, 0-2 /HPF 04/11/2024 11:08 AM EST [facility] Squamous Epithelial Cells, Urine 3-5 /HPF 04/11/2024 11:08 AM EST [facility] Calcium Oxalate Crystals, Urine Occasional /HPF 04/11/2024 11:08 AM EST [facility] Bacteria, Urine Occasional(A) None Seen /HPF 04/11/2024 11:08 AM EST [facility] Urine Urine specimen collection, clean catch / Unknown Non-Blood Collection / Unknown 04/11/2024 9:30 AM EST 04/11/2024 9:58 AM EST Juan M Conroy MD LAB URINE ORDERABLES Final Result Performing Organization Address City/State/[facility] Co de Phone Number [facility] [address] [place] [address] [address] [place] [address], * Hemoglobin A1c (04/11/2024 9:30 AM EST) Hemoglobin A1c 5.2 4.0 - 5.7 % 04/11/2024 10:30 AM EST [facility] Estimated Average Glucose 103 mg/dL 04/11/2024 10:30 AM EST [facility] Blood Structure of peripheral vein / Unknown Venipuncture / Unknown 04/11/2024 9:30 AM EST 04/11/2024 9:31 AM EST Juan M Conroy MD LAB BLOOD ORDERABLES Final Result Performing Organization Address [facility]/ZIP Co de Phone Number [facility] [address] [address], [place] [phone] * Christian Top, Urine (04/11/2024 9:30 AM EST) Extra Tube Hold for add-ons. 04/11/2024 2:05 PM EST [facility] Comment:Auto resulted. Urine Urine specimen collection, clean catch / Unknown Non-Blood Collection / Unknown 04/11/2024 9:30 AM EST 04/11/2024 9:31 AM EST us Juan M Conroy MD LAB URINE ORDERABLES Final Result Performing Organization Address [facility] de Phone Number [facility] [address] [address], [place] [phone] * (ABNORMAL) Urinalysis W/Reflex to Microscopic & Culture (04/11/2024 9:30 AM EST) Color, Urine Yellow Yellow 04/11/2024 9:58 AM EST [facility] Clarity, Urine Clear Clear 04/11/2024 9:58 AM EST [facility] Specific [place], Urine 1.020 1.005 - 1.030 04/11/2024 9:58 AM EST [facility] pH, Urine 7.5 5.0 - 8.0 04/11/2024 9:58 AM EST [facility] Protein, Urine 30(A) Negative mg/dL 04/11/2024 9:58 AM EST [facility] Glucose, Urine Negative Negative mg/dL 04/11/2024 9:58 AM EST [facility] Ketones, Urine Negative Negative mg/dL 04/11/2024 9:58 AM EST [facility] Bilirubin, Urine Negative Negative 04/11/2024 9:58 AM EST [facility] Blood, Urine Negative Negative 04/11/2024 9:58 AM EST [facility] Nitrite, Urine Negative Negative 04/11/2024 9:58 AM EST [facility] Urobilinogen, Urine 0.2 0.2 - 1.0 E.U./dL 04/11/2024 9:58 AM EST [facility] Leukocyte Esterase, Urine Trace(A) Negative 04/11/2024 9:58 AM EST [facility] Urine Urine specimen collection, clean catch / Unknown Non-Blood Collection / Unknown 04/11/2024 9:30 AM EST 04/11/2024 9:31 AM EST [facility] - 04/11/2024 9:58 AM EST Some urinalysis results will not meet the criteria for reflex urine culture although certain urine values may be abnormal. Additional testing can be ordered by the provider if clinically warranted. Juan M Conroy MD LAB URINE ORDERABLES Final Result Performing Organization Address City/State/[facility] Co de Phone Number [facility] [address] [place] [address] [address] [place] [address], [place] [phone] * (ABNORMAL) CBC Auto Differential (04/11/2024 9:30 AM EST) WBC 11.5(H) 4.8 - 10.8 10*3/uL 04/11/2024 9:50 AM EST [facility] RBC 3.76(L) 4.20 - 5.40 10*6/uL 04/11/2024 9:50 AM EST [facility] Hemoglobin 9.5(L) 11.7 - 15.5 g/dL 04/11/2024 9:50 AM EST [facility] Hematocrit 29.3(L) 35.7 - 45.8 % 04/11/2024 9:50 AM EST [facility] MCV 77.9(L) 81.0 - 99.0 fL 04/11/2024 9:50 AM EST [facility] MCH 25.3(L) 26.0 - 34.0 pg 04/11/2024 9:50 AM [facility] MCHC 32.4 31.0 - 36.0 g/dL 04/11/2024 9:50 AM [facility] RDW 14.7 12.0 - 15.0 % 04/11/2024 9:50 AM [facility] RDW Standard Deviation 41.8 36.4 - 46.3 fL 04/11/2024 9:50 AM [facility] Platelets 285 140 - 440 10*3/uL 04/11/2024 9:50 AM [facility] MPV 9.3(L) 9.4 - 12.3 fL 04/11/2024 9:50 AM [facility] Neutrophil % 68.0 50.0 - 75.0 % 04/11/2024 9:50 AM [facility] Immature Grans % 0.3 0.0 - 0.9 % 04/11/2024 9:50 AM [facility] Lymphocyte % 25.7 20.0 - 44.0 % 04/11/2024 9:50 AM [facility] Monocyte % 4.6 0.0 - 14.0 % 04/11/2024 9:50 AM [facility] Eosinophil % 1.1 0.0 - 5.0 % 04/11/2024 9:50 AM [facility] Basophil % 0.3 0.0 - 2.0 % 04/11/2024 9:50 AM [facility] Neutrophil # 7.84(H) 1.80 - 7.70 10*3/uL 04/11/2024 9:50 AM [facility] Immature Grans # 0.03 0.00 - 0.03 10*3/uL 04/11/2024 9:50 AM [facility] Lymphocyte # 3.00 1.00 - 4.75 10*3/uL 04/11/2024 9:50 AM [facility] Monocyte # 0.50 0.00 - 6.00 10*3/uL 04/11/2024 9:50 AM EST [facility] Eosinophil # 0.10 0.00 - 0.80 10*3/uL 04/11/2024 9:50 AM EST [facility] Basophil # <0.03 0.00 - 0.20 10*3/uL 04/11/2024 9:50 AM EST [facility] nRBC % 0.0 0 - 0 /100 WBCs 04/11/2024 9:50 AM EST [facility] nRBC # <0.01 0.00 - 0.13 10*3/uL 04/11/2024 9:50 AM EST [facility] Blood Structure of peripheral vein / Unknown Venipuncture / Unknown 04/11/2024 9:30 AM EST 04/11/2024 9:31 AM EST Juan M Conroy MD LAB BLOOD ORDERABLES Final Result Performing Organization Address City/[facility]/ZIP Co de Phone Number [facility] [address] [address], [place] [phone] * Vitamin B12 (04/11/2024 9:30 AM EST) Vitamin B12 713 232 - 1,245 pg/mL 04/11/2024 10:29 AM EST [facility] Blood Structure of peripheral vein / Unknown Venipuncture / Unknown 04/11/2024 9:30 AM EST 04/11/2024 9:31 AM EST Juan M Conroy MD LAB BLOOD ORDERABLES Final Result [facility] [address] [address], [place] [phone] * TSH (04/11/2024 9:30 AM EST) TSH 3.590 0.270 - 4.200 uIU/mL 04/11/2024 10:21 AM EST [facility] Comment: Females: 1st trimester 0.150-4.000 IU/mL 2nd trimester 0.310-4.170 IU/mL 3rd trimester 0.380-4.150 IU/mL Blood Structure of peripheral vein / Unknown Venipuncture / Unknown 04/11/2024 9:30 AM EST 04/11/2024 9:31 AM EST Juan M Conroy MD LAB BLOOD ORDERABLES Final Result Performing Organization Address [facility] Co de Phone Number [facility] [address] [address], [place] [phone] * T4, Free (04/11/2024 9:30 AM EST) Free T4 1.12 0.80 - 1.80 ng/dL 04/11/2024 10:21 AM EST [facility] Comment: Females: (ng/dL) First Trimester [...] BLOOD ORDERABLES Final Result Performing Organization Address [facility] Co de Phone Number [facility] [address] [address], [place] [phone] * (ABNORMAL) Phosphorus (04/11/2024 9:30 AM EST) Phosphorus 5.9(H) 2.5 - 4.5 mg/dL 04/11/2024 10:21 AM EST [facility] Blood Structure of peripheral vein / Unknown Venipuncture / Unknown 04/11/2024 9:30 AM EST 04/11/2024 9:31 AM EST us Juan M Conroy MD LAB BLOOD ORDERABLES Final Result Performing Organization Address [facility]/ZIP Co de Phone Number [facility] [address] [address], * Magnesium (04/11/2024 9:30 AM EST) MG 2.0 1.5 - 2.5 mg/dL 04/11/2024 10:21 AM EST [facility] Blood Structure of peripheral vein / Unknown Venipuncture / Unknown 04/11/2024 9:30 AM EST 04/11/2024 9:31 AM EST Juan M Conroy MD LAB BLOOD ORDERABLES Final Result Performing Organization Address [facility] Co de Phone Number [facility] [address] [place] [address], [place] [phone] * N-terminal ProBrain Natriuretic Peptide - [facility] & MEM/AUDREYV/Darrell Only (04/11/2024 9:30 AM EST) Pro-B-Type Natriuretic Peptide 102 <=450 pg/mL 04/11/2024 10:15 AM EST [facility] Comment: RULE IN CHF >/= [...] BLOOD ORDERABLES Final Result Performing Organization Address City/[facility]/ZIP Co de Phone Number [facility] [address] [address], [place] [phone] * Ammonia (04/11/2024 9:30 AM EST) Ammonia 25 11 - 51 umol/L 04/11/2024 10:11 AM EST [facility] Blood Structure of peripheral vein / Unknown Venipuncture / Unknown 04/11/2024 9:30 AM EST 04/11/2024 9:31 AM EST Juan M Conroy MD LAB BLOOD ORDERABLES Final Result Performing Organization Address [facility] Co de Phone Number [facility] [address] [address], [place] [phone] * (ABNORMAL) Basic Metabolic Panel (04/11/2024 9:30 AM EST) NA 136 136 - 145 mmol/L 04/11/2024 10:21 AM EST [facility] K 4.6 3.5 - 5.1 mmol/L 04/11/2024 10:21 AM EST [facility] Cl 100 98 - 109 mmol/L 04/11/2024 10:21 AM EST [facility] CO2 25 22 - 32 mmol/L 04/11/2024 10:21 AM EST [facility] BUN 19 6 - 20 mg/dL 04/11/2024 10:21 AM EST [facility] Creatinine 0.61 0.50 - 1.12 mg/dL 04/11/2024 10:21 AM EST [facility] Glucose 101(H) 60 - 99 mg/dL 04/11/2024 10:21 AM EST [facility] Calcium 9.4 8.4 - 10.4 mg/dL 04/11/2024 10:21 AM EST [facility] Anion Gap 16 >=0 04/11/2024 10:21 AM EST [facility] eGFR >90 >=60 mL/min/1. 73m2 04/11/2024 10:21 AM EST [facility] Comment:The estimated glomer ular filtration [...] Conroy MD LAB BLOOD ORDERABLES Final Result [facility] [address] [place] [address], [place] [phone] documented in this encounter Visit Diagnoses Diagnosis Acute respiratory failure, unspecified whether with hypoxia or hypercapnia No diagnosis documented in this encounter Care Teams Mail Handlers Supervisor Relationship Specialty Start Date End Date Jojo Seymour [address] [place] [id number] PCP - General Internal Medicine 03/03/23 documented as of this encounter
--- OUTSIDE RECORDS SUMMARY | 2025-03-04 18:50 | XMS_ITS | Clinical Summary ---
Author Organization [facility] Address [address] [facility] [address] [place] [address] Phone Care Team Providers Care Yeast Stacker Name Role Phone Unavailable Primary Care Provider [...] It is not the complete legal health record.[facility]
--- OUTSIDE RECORDS SUMMARY | 2025-03-04 18:50 | XMS_ITS | Encounter Summary ---
Author Organization [employer] Address [address] [place] [address] Care Team Providers Care Fruit Thinner Machine Operator Name Role Phone Jojo Seymour MD Primary Care Provider [phone] Encounter Details Date Type Department Care Team ([facility] st Contact Info) Description 10/14/2022 Telephone [facility] MED & PEDS [address] [place] [address] Jojo Seymour MD [address] [place] [address] Social History Tobacco Use Types Packs/Day Years [...] on filedocumented in this encounter Care Teams Fruit Thinner Machine Operator Relationship Specialty Start Date End Date Jojo Seymour MD [address] [place] [address] PCP - General Internal Medicine 12/03/20 Julio VNA 04/25/24 documented as of this encounter
--- OUTSIDE RECORDS SUMMARY | 2025-03-04 18:50 | XMS_ITS | Encounter Summary ---
Author Organization [employer] Address [address] [place] [address] Care Team Providers Care University Lecturer Name Role Phone Jojo Seymour MD Primary Care Provider [phone] Reason for Visit * Reason Onset Date Comments FYI 04/21/2024 Encounter Details Date Type Department Care Team ([facility] st Contact Info) Description 04/21/2024 Telephone [facility] [address] [place] [address] Jojo Seymour MD [address] [place] [phone] FYI Social History Tobacco Use Types Packs/Day [...] 04/21/2024 8:33 AM EST Tc from Chyna (grease rack worker) with [facility] informing pt was supposed to get discharge today 04/21/2024 , discharge date is now put on hold. If any questions please contact Chyna at [phone] documented in this encounter Plan of Treatment Not on file documented as of this encounter Visit Diagnoses Not on filedocumented in this encounter Care Teams University Lecturer Relationship Specialty Start Date End Date Jojo Seymour MD [address] [place] [id number] PCP - General Internal Medicine 12/03/20 Julio NERI 04/25/24 documented as of this encounter
== END 2025-03-04 18:47 | disposition home or self-care (01) ==
LOC: HO.MRI 18:46
PROVIDERS: PCP Internal Medicine; Visit Provider Orthopaedic Surgery
DX: S83.242A Other tear of medial meniscus, current injury, left knee, initial encounter (principal)
CPT/HCPCS: 73721